=== PATIENT | female | born 1945 | race Caucasian/White ===

== ENCOUNTER 2016-12-07 18:10 | Inpatient (IN) | payer MEDICARE ==
[~2016-12-07] VITALS: Ht 147.3 cm; Wt 118.4 kg
[~2016-12-07 18:10] MED LIST: ALPR1TAB6 PO; ASCO500T25 PO; DOCU-27 PO; DOXY100C2 PO; FLUT1DIS3 IH; FURO20TA3 PO; GABA-586 PO; HYDR-963 PO; INSU100I11 SQ; INSU100V8 SQ; LANS30CA17 PO; LEVO75TA5 PO; LOPE2TAB27 PO; LOSA100T6 PO; MELA5TAB PO; METF500T4 PO; MIRA50TA PO; MUPI22OI2 TP; OXYB5TAB7 PO; OXYC10TA32 PO; OXYC5TAB PO; PROAIR HFA8.5 GM INH; PROM25TA10 PO; RIZA5TAB7 PO; TOPI200T6 PO; VIT1LOZE2 PO
[2016-12-07 20:30] VITALS: BP 148/82
[2016-12-07 23:00] VITALS: BP 164/69
[2016-12-07] MEDS ORDERED: ACETAMINOPHEN 650 MG SUPP.RECT. PR PRN (23:30)
[2016-12-07] MEDS ORDERED: DEXTROSE 50% 25 GM / 50ML DISP.SYRIN. IV PRN (23:30)
[2016-12-08] MEDS ORDERED: BISACODYL 10 MG SUPP.RECT PR PRN
[2016-12-08] MEDS ORDERED: INSULIN ASPART 300 UNITS/3 ML INSULN.PEN SQ SCH
[2016-12-08] MEDS ORDERED: ALBUTEROL SULFATE 2.5 MG/3 ML NEBU. NEB PRN
[2016-12-08] MEDS: IV DEXTROSE 5 %-0.45 % NACL 1,000 ML IV SCH ×2 (00:30→13:05)
[2016-12-08 03:00] VITALS: BP 161/73
[2016-12-08] MEDS: FENTANYL PF 100 MCG/2 ML VIAL. IV PRN ×3 (03:40→11:39)
[2016-12-08] MEDS: METRONIDAZOLE 500mg PREMIX 100 ML IV SCH ×4 (06:09→22:16)
[2016-12-08] MEDS: INSULIN ASPART 300 UNITS/3 ML INSULN.PEN SQ SCH ×4 (06:15→18:00)
[2016-12-08 07:00] VITALS: BP 164/60
[2016-12-08] MEDS: ONDANSETRON PF 4 MG/2 ML VIAL. IV PRN (08:02)
[2016-12-08] MEDS: IPRATRPIUM/ALBUTEROL 0.5/2.5MG 3 ML NEBU. NEB SCH ×4 (08:09→19:08)
[2016-12-08] MEDS ORDERED: FLU VACC QUAD 2016-17 (36MOS+)/PF 0.5 ML SYRINGE. VAX IM ONE (09:00)
[2016-12-08] MEDS ORDERED: INFLUENZA VAX SCREEN BY RX. MC ONE (09:00)
[2016-12-08] MEDS: HEPARIN PF for SUB-Q USE 5,000 UNIT/0.5 ML VIAL. SQ SCH ×2 (09:00→22:20)
[2016-12-08] MEDS: NYSTATIN TOPICAL POWDER 15GM BOTTLE. TP SCH ×2 (09:42→22:16)
[2016-12-08 10:45] LABS: BASO # 0.1 x10^3/uL (0.0-0.2); BASO % 0 % (0-3); EOS % 0 % (0-3); HEMATOCRIT 27.8 % (36.0-47.0); HEMOGLOBIN 8.8 g/dL (12.0-15.5); LYMPH # 2.4 x10^3/uL (1.0-4.8); LYMPH % 16 % (24-48); MEAN CORPUSCULAR HEMOGLOBIN 26 pg (25-35); MEAN CORPUSCULAR HGB CONC 32 g/dL (31-37); MEAN CORPUSCULAR VOLUME 82 fL (79-100); MONO % 6 % (0-9); NEUT % 78 % (31-73); PLATELET COUNT 521 x10^3/uL (140-400); RED CELL DISTRIBUTION WIDTH 17.9 % (11.5-14.5); WHITE BLOOD COUNT 15.7 x10^3/uL (4.0-11.0)
[2016-12-08 11:00] VITALS: BP 165/89
[2016-12-08 11:01] LABS: CALCIUM 8.4 mg/dL (8.5-10.1); CREATININE 1.2 mg/dL (0.6-1.0); GFR 44.2; POTASSIUM 4.3 mmol/L (3.5-5.1)
[2016-12-08 11:06] LABS: ALBUMIN 2.6 g/dL (3.4-5.0); ALBUMIN/GLOBULIN RATIO 0.7 (1.0-1.7); TOTAL BILIRUBIN 0.3 mg/dL (0.2-1.0); TOTAL PROTEIN 6.6 g/dL (6.4-8.2)
--- NOTE | 2016-12-08 13:42 | PDOC ---
Provider Note Provider Note dictated MITA ASHLEY MD Dec 08, 2016 13:42
[2016-12-08] MEDS ORDERED: LIDOCAINE 1% / SOD BICARB 8.4% 20 ML VIAL. IJ ONE ×2 (14:15→14:30)
[2016-12-08] MEDS ORDERED: IODIXANOL 320MG/ML 50ML VIAL. ONE (14:53)
--- NOTE | 2016-12-08 15:39 | PDOC ---
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 Left brachial and cephalic veins are occluded/absent. Left IJ tunnelled power line placement was successful. Complications No immediate COLLEEN MYLES MD Dec 08, 2016 15:39
[2016-12-08] MEDS ORDERED: HEPARIN PF 500 UNIT/5 ML DISP.SYRIN. IV ONE ×2 (15:42→16:00)
[2016-12-08] MEDS ORDERED: IODIXANOL 320 MG/ML 100 ML VIAL. IV ONE (15:45)
--- NOTE | 2016-12-08 16:04 | HP ---
ADMIT DATE: 12/07/2016 HISTORY OF PRESENT ILLNESS: The patient is a 71-year-old female patient, who was originally admitted to [facility] on 12/03/2016 with a complaint of recurrent bouts of cough and low grade fever. She was diagnosed with left lower lobe pneumonia and sepsis, as well as acute kidney injury, was started on IV antibiotics for healthcare-associated pneumonia. She was discharged only few days prior to that from [facility]. She was started on vancomycin and Levaquin as SHE IS ALLERGIC TO PENICILLIN, SULFA DRUGS, AND CEPHALOSPORINS. Her lab work initially showed that her white cell count was slightly elevated at 14,000 and has slightly increased, as of yesterday, it went up to 19,600. Her blood culture was negative. Urine culture showed growth of Klebsiella pneumoniae sensitive to Levaquin. Has been complaining of severe constipation, has not had any bowel movement despite treatment with MiraLax, milk of magnesia, Senokot, and Dulcolax suppositories and we tried yesterday the Movantik for opioid-induced constipation and she had only small bowel movement and she started complaining of recurrent bouts of nausea and vomiting and we did a KUB, which showed that the patient has multiple air fluid levels. The radiologist stated that the plain films of the abdomen are compatible with at least partial mechanical small-bowel obstruction. I did speak with Dr. Atwood and he recommended transferring her to [facility]. She was transferred yesterday evening. She was kept n.p.o., started on IV fluid, IV pain medication, and insulin sliding scale. The plan is to consult for her to be evaluated by surgical team. Given her morbid obesity and chronic hypoxic respiratory failure and probably obstructive sleep apnea, I would also consult the transformation coach and infectious disease specialist. PAST MEDICAL HISTORY: Significant for chronic lower extremity venous stasis ulcer with recurrent cellulitis, morbid obesity, obstructive sleep apnea, type 2 diabetes, impaired mobility. Unfortunately, she had a previous fractured left humerus and currently, she fractured her right humerus, which is in right shoulder immobilizer. She is also known to have moderate protein-calorie malnutrition, chronic pain syndrome, chronic narcotic overuse, anxiety, and recurrent falls. She is also known to have chronic obstructive pulmonary disease. SURGERIES: She had multiple abdominal surgeries before and she has a history of bowel obstruction that required NG tube, treated and resolved apparently without any surgery at [facility]. ALLERGIES: She is allergic to PENICILLIN, SULFA, ASPIRIN, CEPHALEXIN, DIAZEPAM, AND BENADRYL. MEDICATIONS: She was on following medications: She was on Colace 100 mg twice a day, polyethylene glycol 17 g twice a day, Movantik 25 mg daily. She is on levothyroxine 100 mcg once a day, bisacodyl 10 mg daily, magnesium hydroxide or milk of magnesia 30 mL p.o. daily, ondansetron 4 mg IV every 6 hours for nausea and vomiting. She was on Levemir insulin 50 units at bedtime and NovoLog insulin 13 units before meals. She was on methyl prednisolone 60 mg IV daily, furosemide 20 mg once a day. She was on vancomycin 1.5 grams IV daily and heparin 5000 units subcutaneously twice a day, levofloxacin 750 mg every 48 hours. She is also on insulin sliding scale, nystatin powder applied topically, losartan potassium 100 mg once a day, albuterol and Atrovent q.i.d., alprazolam 0.5 mg every 8 hours, topiramate 200 mg at bedtime. She is also on Protonix 40 mg p.o. b.i.d., oxycodone 15 mg twice a day, and melatonin 4.5 mg at bedtime. She is on sumatriptan 50 mg every 4 hours for migraine headache and oxycodone 5 mg every 6 hours, promethazine 25 mg every 4 hours for nausea and vomiting. FAMILY HISTORY: Unremarkable. SOCIAL HISTORY: She lives at home with her . She has never smoked. 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 REVIEW OF SYSTEMS: As per history of present illness. PHYSICAL EXAMINATION GENERAL: When I examined her, she was sitting propped up in her recliner in no apparent respiratory distress. She was somewhat pale, but no jaundice, cyanosis, or thyromegaly. No jugular venous distention. No limb edema. VITAL SIGNS: Her heart rate was 90, blood pressure was 140/50, temperature was 98, respiratory rate was 16, and oxygen saturation was 94% on 3 liters of oxygen by nasal cannula. HEAD, EYES, EARS, NOSE, THROAT: Showed normocephalic, atraumatic. NECK: Supple. HEART: Showed normal first and second heart sounds. No gallop, rub, or murmur. CHEST: Shows central trachea, reduced chest expansion, reduced air entry, vesicular sounds with crepitation, more on the left side, very few scattered rhonchi. ABDOMEN: Distended, soft, nontender. No guarding or rigidity. No organomegaly. Hernial orifices intact. Bowel sounds are sluggish. NEUROLOGIC: She was awake, alert, responding appropriately. Cranial nerves intact. She moves the left upper extremity without difficulty. Her right upper extremity is in right shoulder immobilizer. She is able to walk with assistance with a walker. LABORATORY DATA: Her most recent lab work was done yesterday at [facility] showed white cell count to be 19,600, hemoglobin 9.2, hematocrit 30, MCV 85, and platelet count of 557,000 with manual differential showed 83% polymorphs, 12% lymphocytes, and 4% monocytes. Her chemistry as of yesterday showed a serum sodium 132, potassium 4.3, chloride 95, bicarbonate 28, anion gap of 9, BUN 23, creatinine 1.1, estimated GFR was 49 mL per minute. Her glucose was 212 mg/dL, calcium was 9.1. Total bilirubin, AST, ALT, alkaline phosphatase were normal. Her total protein was 6.9, albumin 2.7. Her prothrombin time was 10.3, INR 1, aPTT was 25. As I stated, her blood cultures were negative; however, her urine culture showed growth of more than 100,000 colony forming units per mL of Klebsiella pneumoniae, susceptible to levofloxacin. She was kept n.p.o., started on IV fluid in the form of D5 half normal at 75 mL and continued her on levofloxacin, as well as started on Flagyl. Her vancomycin was discontinued as her blood cultures were negative. She was started on fentanyl 50 mcg IV every 3 hours for pain, Zofran for nausea and vomiting, and with a clear instruction to the nursing staff that if she continued to have intractable nausea and vomiting, she will require an NG tube to suction. ASSESSMENT AND PLAN: In summary, this is a 71-year-old female patient with fractured right humerus, treated conservatively with a sling. She was admitted recently with healthcare-associated pneumonia and was found also to have a urinary tract infection, treated with IV antibiotic. She has been on large amount of narcotics and she had started complaining of severe constipation that has not responded even to Movantik and yesterday, she started to have recurrent bouts of nausea, vomiting and a KUB showed that she has multiple air fluid levels consistent with at least partial mechanical small bowel obstruction. INCOMPLETE MICHELLE CRESPO MD DR: JARON/binta JOB#: [id number] / [id number]
--- NOTE | 2016-12-08 16:59 | RAD ---
Indication assess PICC line placement. A single view of the chest was obtained. No prior imaging of the chest is available. Heart size is at the upper limits of normal. There is no congestive heart failure. There is some minimal volume loss at the right lung base likely reflecting atelectasis. Significant pleural fluid is not seen. There is no pneumothorax. A left shoulder prosthesis is noted. Postoperative changes are noted associated with the right humerus. Left PICC line is noted. The tip is probably positioned at the SVC right atrial junction. IMPRESSION: Left PICC line. The tip is probably positioned at the SVC right atrial junction. Mild volume loss at the right lung base likely reflects atelectasis
[2016-12-08 18:20] LABS: OBC FLU VALID
[2016-12-08 20:26] VITALS: BP 130/49
[2016-12-08 22:13] VITALS: BP 159/63
[2016-12-09] MEDS: FENTANYL PF 100 MCG/2 ML VIAL. IV PRN ×3 (01:12→09:41)
[2016-12-09] MEDS: ONDANSETRON PF 4 MG/2 ML VIAL. IV PRN ×4 (02:04→21:21)
[2016-12-09 02:27] VITALS: BP 156/63
[2016-12-09] MEDS: IV DEXTROSE 5 %-0.45 % NACL 1,000 ML IV SCH (02:56)
[2016-12-09 06:05] LABS: BASO % 0 % (0-3); EOS % 1 % (0-3); HEMATOCRIT 26.9 % (36.0-47.0); HEMOGLOBIN 8.3 g/dL (12.0-15.5); LYMPH # 2.3 x10^3/uL (1.0-4.8); LYMPH % 14 % (24-48); MEAN CORPUSCULAR HEMOGLOBIN 26 pg (25-35); MEAN CORPUSCULAR HGB CONC 31 g/dL (31-37); MEAN CORPUSCULAR VOLUME 84 fL (79-100); MONO % 6 % (0-9); NEUT % 79 % (31-73); PLATELET COUNT 488 x10^3/uL (140-400); RED BLOOD COUNT 3.22 x10^6/uL (3.50-5.40); RED CELL DISTRIBUTION WIDTH 17.5 % (11.5-14.5); WHITE BLOOD COUNT 16.8 x10^3/uL (4.0-11.0)
[2016-12-09] MEDS: METRONIDAZOLE 500mg PREMIX 100 ML IV SCH ×3 (06:30→22:39)
[2016-12-09 06:47] LABS: ALBUMIN 2.5 g/dL (3.4-5.0); ALBUMIN/GLOBULIN RATIO 0.6 (1.0-1.7); CREATININE 1.1 mg/dL (0.6-1.0); GFR 48.8; TOTAL BILIRUBIN 0.4 mg/dL (0.2-1.0); TOTAL PROTEIN 6.5 g/dL (6.4-8.2)
[2016-12-09 07:00] VITALS: BP 161/67
[2016-12-09] MEDS: IPRATRPIUM/ALBUTEROL 0.5/2.5MG 3 ML NEBU. NEB SCH ×4 (07:12→20:23)
[2016-12-09] MEDS: HEPARIN PF for SUB-Q USE 5,000 UNIT/0.5 ML VIAL. SQ SCH ×2 (08:54→21:26)
[2016-12-09] MEDS: INSULIN ASPART 300 UNITS/3 ML INSULN.PEN SQ SCH ×4 (08:54→17:13)
--- NOTE | 2016-12-09 09:20 | CONS ---
DATE OF CONSULTATION: PULMONARY CONSULTATION ATTENDING PHYSICIAN: Willie Ludwig MD REASON FOR CONSULTATION: Cough. HISTORY OF PRESENT ILLNESS: The patient is a 71-year-old female who is morbidly obese. She is 4 feet 10 inches tall and has a BMI of 54.6. The patient was initially admitted to [facility] and was treated for urinary tract infection and pneumonia. She had a low-grade fever. The patient had lower extremity cellulitis as well. The patient had a fracture of the right humerus, which was about 4 weeks ago at . She has been brought back to [facility] because of small bowel obstruction. I have asked to see her for further evaluation. She has been having cough, which appears to be wet cough. She says she cannot bring up any phlegm. No fevers have been recorded. She has no history of tobacco use. She states she was diagnosed with mild CANDACE, but she did not need any treatment. The chest x-ray from [facility] from the was available and it shows some atelectasis, right base. I have been asked to see her for further evaluation. She is normally on home oxygen on a 24-hour basis at 3.5 L. PAST MEDICAL HISTORY: Significant for history of morbid obesity, history of obesity hypoventilation syndrome, history of chronic respiratory failure with 3.5 L on a 24-hour basis. She has history of diabetes as well. PAST SURGICAL HISTORY: No recent surgeries. ALLERGIES: Multiple, they were all reviewed including PENICILLIN, SULFA, ASPIRIN, KEFLEX, DIAZEPAM, DIPHENHYDRAMINE AND ERYTHROMYCIN. REVIEW OF SYSTEMS: A 10-point system obtained, pertinent positives discussed in my history of present illness, otherwise noncontributory. All systems that were negative were reviewed as well. SOCIAL HISTORY: Nonsmoker. CURRENT MEDICATIONS: Reviewed as listed in the MRAD including antibiotic Levaquin and DuoNebs. PHYSICAL EXAMINATION: GENERAL: She is awake, following commands. VITAL SIGNS: Blood pressure 164/80, afebrile, pulse ox 98% on 2 L. HEENT: Sclerae nonicteric. NECK: Supple. LUNGS: With few rhonchi anteriorly. CARDIOVASCULAR: Regular rate and rhythm. ABDOMEN: Soft, markedly obese. EXTREMITIES: With bilateral edema . LABORATORY DATA: Reviewed. White cell count 15.7, hemoglobin 8.8 and platelets are 521. BUN is 20, creatinine is 1.2. IMPRESSION: 1. Cough, which has been present for the last few days. I suspect combination of viral bronchitis and suspected aspiration of gastric contents. Her abdomen is markedly distended and she has small bowel obstruction. 2. Abnormal chest x-ray on the with right lower lobe atelectasis. We will repeat chest x-ray to rule out any worsening. 3. Suspected obesity hypoventilation syndrome. 4. Underlying chronic respiratory failure, on home oxygen at 3.5 L nasal cannula. 5. Rule out influenza. RECOMMENDATIONS: 1. Obtain nasal swab. 2. Continue with present bronchodilators. 3. Continue with empiric antibiotics. 4. Keep head of the bed elevated to minimize any acid aspiration. 5. Management of small bowel obstruction per PCP and GI. 6. Weight loss was strongly emphasized to the patient. 7. Incentive spirometry. 8. Repeat chest x-ray. 9. We will follow along with you. MITA ASHLEY MD DR: MEGAN/binta JOB#: [id number] / [id number] [place]ET[place]
[2016-12-09] MEDS: NYSTATIN TOPICAL POWDER 15GM BOTTLE. TP SCH ×2 (09:45→21:21)
--- NOTE | 2016-12-09 09:53 | PDOC ---
SURGICAL PROGRESS NOTE Subjective Pt sitting up in chair, lori clears, notes starting to pass large amount of stool , notes chronic nausea, no emesis, chronic SOA Vital Signs Vital Signs Date Time Temp Pulse Resp B/P Pulse Ox O2 Delivery O2 Flow Rate FiO2 12/09/16 08:00 Nasal Cannula 3.0 12/09/16 07:13 99 12/09/16 07:00 98.1 92 20 161/67 98.1 I&O Intake and Output 12/09/16 07:00 Intake Total 1280 ml Output Total 800 ml Balance 480 ml Intake Oral 1180 ml IV Total 100 ml Output Urine Total 800 ml # Voids 4 # Bowel Movements 1 General: Alert, Oriented X3, Cooperative, mild distress Abdomen: Soft, Other (morbidly obese, min TTP, reducible hernias) Labs Laboratory Tests Test 12/07/16 21:25 12/08/16 06:11 12/08/16 10:35 12/08/16 17:02 Glucose (Fingerstick) 156mg/dL (70-99) 234mg/dL (70-99) 212mg/dL (70-99) White Blood Count 15.7x10^3/uL (4.0-11.0) Red Blood Count 3.40x10^6/uL (3.50-5.40) Hemoglobin 8.8g/dL (12.0-15.5) Hematocrit 27.8% (36.0-47.0) Mean Corpuscular Volume 82fL (79-100) Mean Corpuscular Hemoglobin 26pg (25-35) Mean Corpuscular Hemoglobin Concent 32g/dL (31-37) Red Cell Distribution Width 17.9% (11.5-14.5) Platelet Count 521x10^3/uL (140-400) Neutrophils (%) (Auto) 78% (31-73) Lymphocytes (%) (Auto) 16% (24-48) Monocytes (%) (Auto) 6% (0-9) Eosinophils (%) (Auto) 0% (0-3) Basophils (%) (Auto) 0% (0-3) Neutrophils # (Auto) 12.3x10^3uL (1.8-7.7) Lymphocytes # (Auto) 2.4x10^3/uL (1.0-4.8) Monocytes # (Auto) 0.9x10^3/uL (0.0-1.1) Eosinophils # (Auto) 0.0x10^3/uL (0.0-0.7) Basophils # (Auto) 0.1x10^3/uL (0.0-0.2) Sodium Level 132mmol/L (136-145) Potassium Level 4.3mmol/L (3.5-5.1) Chloride Level 96mmol/L (98-107) Carbon Dioxide Level 29mmol/L (21-32) Anion Gap 7 (6-14) Blood Urea Nitrogen 20mg/dL (7-20) Creatinine 1.2mg/dL (0.6-1.0) Estimated GFR (Cockcroft-Gault) 44.2 BUN/Creatinine Ratio 17 (6-20) Glucose Level 250mg/dL (70-99) Calcium Level 8.4mg/dL (8.5-10.1) Total Bilirubin 0.3mg/dL (0.2-1.0) Aspartate Amino Transf (AST/SGOT) 14U/L (15-37) Alanine Aminotransferase (ALT/SGPT) 21U/L (14-59) Alkaline Phosphatase 87U/L (46-116) Total Protein 6.6g/dL (6.4-8.2) Albumin 2.6g/dL (3.4-5.0) Albumin/Globulin Ratio 0.7 (1.0-1.7) Test 12/08/16 17:30 12/08/16 21:10 12/09/16 05:45 Influenza Type A Antigen Negative (NEGATIVE) Influenza Type B Antigen Negative (NEGATIVE) Glucose (Fingerstick) 216mg/dL (70-99) White Blood Count 16.8x10^3/uL (4.0-11.0) Red Blood Count 3.22x10^6/uL (3.50-5.40) Hemoglobin 8.3g/dL (12.0-15.5) Hematocrit 26.9% (36.0-47.0) Mean Corpuscular Volume 84fL (79-100) Mean Corpuscular Hemoglobin 26pg (25-35) Mean Corpuscular Hemoglobin Concent 31g/dL (31-37) Red Cell Distribution Width 17.5% (11.5-14.5) Platelet Count 488x10^3/uL (140-400) Neutrophils (%) (Auto) 79% (31-73) Lymphocytes (%) (Auto) 14% (24-48) Monocytes (%) (Auto) 6% (0-9) Eosinophils (%) (Auto) 1% (0-3) Basophils (%) (Auto) 0% (0-3) Neutrophils # (Auto) 13.3x10^3uL (1.8-7.7) Lymphocytes # (Auto) 2.3x10^3/uL (1.0-4.8) Monocytes # (Auto) 1.1x10^3/uL (0.0-1.1) Eosinophils # (Auto) 0.1x10^3/uL (0.0-0.7) Basophils # (Auto) 0.0x10^3/uL (0.0-0.2) Sodium Level 132mmol/L (136-145) Potassium Level 4.0mmol/L (3.5-5.1) Chloride Level 98mmol/L (98-107) Carbon Dioxide Level 26mmol/L (21-32) Anion Gap 8 (6-14) Blood Urea Nitrogen 16mg/dL (7-20) Creatinine 1.1mg/dL (0.6-1.0) Estimated GFR (Cockcroft-Gault) 48.8 BUN/Creatinine Ratio 15 (6-20) Glucose Level 251mg/dL (70-99) Calcium Level 8.0mg/dL (8.5-10.1) Total Bilirubin 0.4mg/dL (0.2-1.0) Aspartate Amino Transf (AST/SGOT) 16U/L (15-37) Alanine Aminotransferase (ALT/SGPT) 22U/L (14-59) Alkaline Phosphatase 85U/L (46-116) Total Protein 6.5g/dL (6.4-8.2) Albumin 2.5g/dL (3.4-5.0) Albumin/Globulin Ratio 0.6 (1.0-1.7) Laboratory Tests Test 12/08/16 10:35 12/08/16 17:02 12/08/16 17:30 12/08/16 21:10 White Blood Count 15.7x10^3/uL (4.0-11.0) Red Blood Count 3.40x10^6/uL (3.50-5.40) Hemoglobin 8.8g/dL (12.0-15.5) Hematocrit 27.8% (36.0-47.0) Mean Corpuscular Volume 82fL (79-100) Mean Corpuscular Hemoglobin 26pg (25-35) Mean Corpuscular Hemoglobin Concent 32g/dL (31-37) Red Cell Distribution Width 17.9% (11.5-14.5) Platelet Count 521x10^3/uL (140-400) Neutrophils (%) (Auto) 78% (31-73) Lymphocytes (%) (Auto) 16% (24-48) Monocytes (%) (Auto) 6% (0-9) Eosinophils (%) (Auto) 0% (0-3) Basophils (%) (Auto) 0% (0-3) Neutrophils # (Auto) 12.3x10^3uL (1.8-7.7) Lymphocytes # (Auto) 2.4x10^3/uL (1.0-4.8) Monocytes # (Auto) 0.9x10^3/uL (0.0-1.1) Eosinophils # (Auto) 0.0x10^3/uL (0.0-0.7) Basophils # (Auto) 0.1x10^3/uL (0.0-0.2) Sodium Level 132mmol/L (136-145) Potassium Level 4.3mmol/L (3.5-5.1) Chloride Level 96mmol/L (98-107) Carbon Dioxide Level 29mmol/L (21-32) Anion Gap 7 (6-14) Blood Urea Nitrogen 20mg/dL (7-20) Creatinine 1.2mg/dL (0.6-1.0) Estimated GFR (Cockcroft-Gault) 44.2 BUN/Creatinine Ratio 17 (6-20) Glucose Level 250mg/dL (70-99) Calcium Level 8.4mg/dL (8.5-10.1) Total Bilirubin 0.3mg/dL (0.2-1.0) Aspartate Amino Transf (AST/SGOT) 14U/L (15-37) Alanine Aminotransferase (ALT/SGPT) 21U/L (14-59) Alkaline Phosphatase 87U/L (46-116) Total Protein 6.6g/dL (6.4-8.2) Albumin 2.6g/dL (3.4-5.0) Albumin/Globulin Ratio 0.7 (1.0-1.7) Glucose (Fingerstick) 212mg/dL (70-99) 216mg/dL (70-99) Influenza Type A Antigen Negative (NEGATIVE) Influenza Type B Antigen Negative (NEGATIVE) Test 12/09/16 05:45 White Blood Count 16.8x10^3/uL (4.0-11.0) Red Blood Count 3.22x10^6/uL (3.50-5.40) Hemoglobin 8.3g/dL (12.0-15.5) Hematocrit 26.9% (36.0-47.0) Mean Corpuscular Volume 84fL (79-100) Mean Corpuscular Hemoglobin 26pg (25-35) Mean Corpuscular Hemoglobin Concent 31g/dL (31-37) Red Cell Distribution Width 17.5% (11.5-14.5) Platelet Count 488x10^3/uL (140-400) Neutrophils (%) (Auto) 79% (31-73) Lymphocytes (%) (Auto) 14% (24-48) Monocytes (%) (Auto) 6% (0-9) Eosinophils (%) (Auto) 1% (0-3) Basophils (%) (Auto) 0% (0-3) Neutrophils # (Auto) 13.3x10^3uL (1.8-7.7) Lymphocytes # (Auto) 2.3x10^3/uL (1.0-4.8) Monocytes # (Auto) 1.1x10^3/uL (0.0-1.1) Eosinophils # (Auto) 0.1x10^3/uL (0.0-0.7) Basophils # (Auto) 0.0x10^3/uL (0.0-0.2) Sodium Level 132mmol/L (136-145) Potassium Level 4.0mmol/L (3.5-5.1) Chloride Level 98mmol/L (98-107) Carbon Dioxide Level 26mmol/L (21-32) Anion Gap 8 (6-14) Blood Urea Nitrogen 16mg/dL (7-20) Creatinine 1.1mg/dL (0.6-1.0) Estimated GFR (Cockcroft-Gault) 48.8 BUN/Creatinine Ratio 15 (6-20) Glucose Level 251mg/dL (70-99) Calcium Level 8.0mg/dL (8.5-10.1) Total Bilirubin 0.4mg/dL (0.2-1.0) Aspartate Amino Transf (AST/SGOT) 16U/L (15-37) Alanine Aminotransferase (ALT/SGPT) 22U/L (14-59) Alkaline Phosphatase 85U/L (46-116) Total Protein 6.5g/dL (6.4-8.2) Albumin 2.5g/dL (3.4-5.0) Albumin/Globulin Ratio 0.6 (1.0-1.7) Assessment/Plan SBO, multipe med problems, appears improved cont supportive care ADAT slowly pt poor surgical candidate, and adamant about not having surgery Problems: ERIBERTO ARMSTRONG MD Dec 09, 2016 09:53
--- NOTE | 2016-12-09 10:03 | PDOC ---
Infectious Disease Note ROS ROS GEN: Denies fevers, chills, sweats HEENT: Denies blurred vision, sore throat CV: Denies chest pain RESP: Denies shortness of air, cough GI: Denies n/v/d NEURO: Denies confusion, dizziness MSK: Denies weakness, joint pain/swelling Vital Sign Vital Signs Vital Signs Date Time Temp Pulse Resp B/P Pulse Ox O2 Delivery O2 Flow Rate FiO2 12/09/16 08:00 Nasal Cannula 3.0 12/09/16 07:13 99 12/09/16 07:00 98.1 92 20 161/67 98.1 Physical Exam PHYSICAL EXAM GENERAL: NAD, Alert HEENT: PERRL, OC/OP NECK: Supple, no JVD, no LN LUNGS: Clear HEART: S1S2, no gallop, no murmur ABD: Soft, NT, no organomegaly, no rebound EXT: No edema, no cyanosis SOFTWARE PUBLISHER: Alert, oriented x 3, no focal neurologic deficit SKIN: No rash IV: ok Labs Lab Laboratory Tests Test 12/08/16 10:35 12/08/16 17:02 12/08/16 17:30 12/08/16 21:10 White Blood Count 15.7x10^3/uL (4.0-11.0) Red Blood Count 3.40x10^6/uL (3.50-5.40) Hemoglobin 8.8g/dL (12.0-15.5) Hematocrit 27.8% (36.0-47.0) Mean Corpuscular Volume 82fL (79-100) Mean Corpuscular Hemoglobin 26pg (25-35) Mean Corpuscular Hemoglobin Concent 32g/dL (31-37) Red Cell Distribution Width 17.9% (11.5-14.5) Platelet Count 521x10^3/uL (140-400) Neutrophils (%) (Auto) 78% (31-73) Lymphocytes (%) (Auto) 16% (24-48) Monocytes (%) (Auto) 6% (0-9) Eosinophils (%) (Auto) 0% (0-3) Basophils (%) (Auto) 0% (0-3) Neutrophils # (Auto) 12.3x10^3uL (1.8-7.7) Lymphocytes # (Auto) 2.4x10^3/uL (1.0-4.8) Monocytes # (Auto) 0.9x10^3/uL (0.0-1.1) Eosinophils # (Auto) 0.0x10^3/uL (0.0-0.7) Basophils # (Auto) 0.1x10^3/uL (0.0-0.2) Sodium Level 132mmol/L (136-145) Potassium Level 4.3mmol/L (3.5-5.1) Chloride Level 96mmol/L (98-107) Carbon Dioxide Level 29mmol/L (21-32) Anion Gap 7 (6-14) Blood Urea Nitrogen 20mg/dL (7-20) Creatinine 1.2mg/dL (0.6-1.0) Estimated GFR (Cockcroft-Gault) 44.2 BUN/Creatinine Ratio 17 (6-20) Glucose Level 250mg/dL (70-99) Calcium Level 8.4mg/dL (8.5-10.1) Total Bilirubin 0.3mg/dL (0.2-1.0) Aspartate Amino Transf (AST/SGOT) 14U/L (15-37) Alanine Aminotransferase (ALT/SGPT) 21U/L (14-59) Alkaline Phosphatase 87U/L (46-116) Total Protein 6.6g/dL (6.4-8.2) Albumin 2.6g/dL (3.4-5.0) Albumin/Globulin Ratio 0.7 (1.0-1.7) Glucose (Fingerstick) 212mg/dL (70-99) 216mg/dL (70-99) Influenza Type A Antigen Negative (NEGATIVE) Influenza Type B Antigen Negative (NEGATIVE) Test 12/09/16 05:45 White Blood Count 16.8x10^3/uL (4.0-11.0) Red Blood Count 3.22x10^6/uL (3.50-5.40) Hemoglobin 8.3g/dL (12.0-15.5) Hematocrit 26.9% (36.0-47.0) Mean Corpuscular Volume 84fL (79-100) Mean Corpuscular Hemoglobin 26pg (25-35) Mean Corpuscular Hemoglobin Concent 31g/dL (31-37) Red Cell Distribution Width 17.5% (11.5-14.5) Platelet Count 488x10^3/uL (140-400) Neutrophils (%) (Auto) 79% (31-73) Lymphocytes (%) (Auto) 14% (24-48) Monocytes (%) (Auto) 6% (0-9) Eosinophils (%) (Auto) 1% (0-3) Basophils (%) (Auto) 0% (0-3) Neutrophils # (Auto) 13.3x10^3uL (1.8-7.7) Lymphocytes # (Auto) 2.3x10^3/uL (1.0-4.8) Monocytes # (Auto) 1.1x10^3/uL (0.0-1.1) Eosinophils # (Auto) 0.1x10^3/uL (0.0-0.7) Basophils # (Auto) 0.0x10^3/uL (0.0-0.2) Sodium Level 132mmol/L (136-145) Potassium Level 4.0mmol/L (3.5-5.1) Chloride Level 98mmol/L (98-107) Carbon Dioxide Level 26mmol/L (21-32) Anion Gap 8 (6-14) Blood Urea Nitrogen 16mg/dL (7-20) Creatinine 1.1mg/dL (0.6-1.0) Estimated GFR (Cockcroft-Gault) 48.8 BUN/Creatinine Ratio 15 (6-20) Glucose Level 251mg/dL (70-99) Calcium Level 8.0mg/dL (8.5-10.1) Total Bilirubin 0.4mg/dL (0.2-1.0) Aspartate Amino Transf (AST/SGOT) 16U/L (15-37) Alanine Aminotransferase (ALT/SGPT) 22U/L (14-59) Alkaline Phosphatase 85U/L (46-116) Total Protein 6.5g/dL (6.4-8.2) Albumin 2.5g/dL (3.4-5.0) Albumin/Globulin Ratio 0.6 (1.0-1.7) Objective Assessment Partial SBO Multiple abx allergies - Amox/Cephalexin/sulfa rash - tolerated Biaxin Leukocytosis - ? reactive given difficulty with central line placement Sinus congestion Aspiration UTI klebsiella - res to Amp/Pip 12/02. Blood cult 12/02 - neg RUE fracture about 7 weeks ago DM Morbid obesity Plan Plan of Care Cont levoflox/Flagyl Dose Tigecycline to see if helps with drainage/cough/Leukocytosis F/u labs/cults and response Reviewed [facility] records # [id number] CARMINA HERNANDEZ MD Dec 09, 2016 10:03
[2016-12-09] MEDS ORDERED: TIGECYCLINE 100 MG in IV NORMAL SALINE 100ML 100 ML IV ONE (10:30)
[2016-12-09 11:00] VITALS: BP 155/46
[2016-12-09] MEDS: HYDROMORPHONE 2 MG/ML VIAL. IV PRN ×4 (12:00→22:39)
--- NOTE | 2016-12-09 12:09 | RAD ---
Procedure: Left upper extremity venogram, attempted left upper extremity PICC line, left tunneled power injector central venous catheter with fluoroscopy and ultrasound guidance Clinical Indication: 71-year-old requiring long-term venous access. Sedation: Local anesthesia only Antibiotics: Antibiotic was administered intravenously within 1 hour of the procedure start time. Exposure: Kerma-Area Product: 14 Gycm2 OR Fluoro Time: Images: Contrast: 20 cc of Visipaque 320 contrast media Sterility: All elements of maximal sterile barrier technique including the use of a cap, mask, sterile gown, sterile gloves, large sterile sheet, appropriate hand hygiene, and 2% chlorhexidine for cutaneous antisepsis (or acceptable alternative antiseptic per current guidelines) were followed for this procedure. Consent: The procedure was explained in its entirety to the patient or the patients designated traffic representative by a member of the treatment team, including a discussion of the risks, benefits and commonly accepted alternatives to the procedure, as well as the expected consequences of no therapy whatsoever. Discussion of the risks included, but was not limited to, those that are most frequent and those that are rare but possibly severe or life-threatening, as well as the possibility of unforeseen complications. Technique and Findings: Following informed consent, the patient was prepped and draped in usual sterile fashion. Ultrasound interrogation of the left arm revealed a patent basilic vein, with occluded cephalic and brachial veins. 1% lidocaine was used to achieve local anesthesia. Under ultrasound guidance, a 21-gauge micropuncture needle was used to gain access to the left basilic vein. A Hardcopy ultrasound image was recorded. There is difficulty advancing the wire. Contrast venography was performed demonstrating a long segment stricture of the high basilic vein, with patency of the axillary vein distally. Efforts to advance wire were unsuccessful in all instances. The wire needle was then removed and hemostasis was achieved with manual compression. Using the stagnant contrast column in the high basilic vein at the axillary venous junction as a guide, a 21-gauge micropuncture was used to gain access to the axillary vein under fluoroscopic guidance. This resulted in rapid spasm of the vein, precluding passage of the wire. The needle was removed and hemostasis was achieved with manual compression. The left chest was then prepped and draped in usual sterile fashion. Ultrasound interrogation of the left neck revealed patency and compressibility of left internal jugular vein. A hardcopy ultrasound image was recorded as a 21-gauge micropuncture was used to gain access to this vessel. The needle was exchanged over wire for a peel-away sheath. The skin over the left anterior chest wall was then copiously anesthetized with 1% lidocaine plus epinephrine, and a small dermatotomy was made. A power injectable central line was then tunneled subcutaneously towards the neck dermatotomy and deployed through the peel-away sheath under fluoroscopic guidance such that the distal tip resided in the proximal right atrium. This catheter was accessed and found to flush and aspirate with ease. The catheter was then sutured to the skin. Dermabond was used to close the neck dermatotomy. Complications: No immediate Impression: 1. 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 2. Successful placement of a left chest tunneled power injectable central venous catheter as described
--- NOTE | 2016-12-09 12:27 | PDOC ---
PULMONARY PROGRESS NOTES Subjective feels better having BM Vitals Vital Signs Date Time Temp Pulse Resp B/P Pulse Ox O2 Delivery O2 Flow Rate FiO2 12/09/16 11:05 Nasal Cannula 3.0 12/09/16 07:13 99 12/09/16 07:00 98.1 92 20 161/67 98.1 General: Alert, No acute distress Lungs: Other (decrease bs) Cardiovascular: S1, S2 Abdomen: Soft, Other (markedly obese) Neuro Exam: Alert Extremities: Other Labs Laboratory Tests Test 12/07/16 21:25 12/08/16 06:11 12/08/16 10:35 12/08/16 17:02 Glucose (Fingerstick) 156mg/dL (70-99) 234mg/dL (70-99) 212mg/dL (70-99) White Blood Count 15.7x10^3/uL (4.0-11.0) Red Blood Count 3.40x10^6/uL (3.50-5.40) Hemoglobin 8.8g/dL (12.0-15.5) Hematocrit 27.8% (36.0-47.0) Mean Corpuscular Volume 82fL (79-100) Mean Corpuscular Hemoglobin 26pg (25-35) Mean Corpuscular Hemoglobin Concent 32g/dL (31-37) Red Cell Distribution Width 17.9% (11.5-14.5) Platelet Count 521x10^3/uL (140-400) Neutrophils (%) (Auto) 78% (31-73) Lymphocytes (%) (Auto) 16% (24-48) Monocytes (%) (Auto) 6% (0-9) Eosinophils (%) (Auto) 0% (0-3) Basophils (%) (Auto) 0% (0-3) Neutrophils # (Auto) 12.3x10^3uL (1.8-7.7) Lymphocytes # (Auto) 2.4x10^3/uL (1.0-4.8) Monocytes # (Auto) 0.9x10^3/uL (0.0-1.1) Eosinophils # (Auto) 0.0x10^3/uL (0.0-0.7) Basophils # (Auto) 0.1x10^3/uL (0.0-0.2) Sodium Level 132mmol/L (136-145) Potassium Level 4.3mmol/L (3.5-5.1) Chloride Level 96mmol/L (98-107) Carbon Dioxide Level 29mmol/L (21-32) Anion Gap 7 (6-14) Blood Urea Nitrogen 20mg/dL (7-20) Creatinine 1.2mg/dL (0.6-1.0) Estimated GFR (Cockcroft-Gault) 44.2 BUN/Creatinine Ratio 17 (6-20) Glucose Level 250mg/dL (70-99) Calcium Level 8.4mg/dL (8.5-10.1) Total Bilirubin 0.3mg/dL (0.2-1.0) Aspartate Amino Transf (AST/SGOT) 14U/L (15-37) Alanine Aminotransferase (ALT/SGPT) 21U/L (14-59) Alkaline Phosphatase 87U/L (46-116) Total Protein 6.6g/dL (6.4-8.2) Albumin 2.6g/dL (3.4-5.0) Albumin/Globulin Ratio 0.7 (1.0-1.7) Test 12/08/16 17:30 12/08/16 21:10 12/09/16 05:45 Influenza Type A Antigen Negative (NEGATIVE) Influenza Type B Antigen Negative (NEGATIVE) Glucose (Fingerstick) 216mg/dL (70-99) White Blood Count 16.8x10^3/uL (4.0-11.0) Red Blood Count 3.22x10^6/uL (3.50-5.40) Hemoglobin 8.3g/dL (12.0-15.5) Hematocrit 26.9% (36.0-47.0) Mean Corpuscular Volume 84fL (79-100) Mean Corpuscular Hemoglobin 26pg (25-35) Mean Corpuscular Hemoglobin Concent 31g/dL (31-37) Red Cell Distribution Width 17.5% (11.5-14.5) Platelet Count 488x10^3/uL (140-400) Neutrophils (%) (Auto) 79% (31-73) Lymphocytes (%) (Auto) 14% (24-48) Monocytes (%) (Auto) 6% (0-9) Eosinophils (%) (Auto) 1% (0-3) Basophils (%) (Auto) 0% (0-3) Neutrophils # (Auto) 13.3x10^3uL (1.8-7.7) Lymphocytes # (Auto) 2.3x10^3/uL (1.0-4.8) Monocytes # (Auto) 1.1x10^3/uL (0.0-1.1) Eosinophils # (Auto) 0.1x10^3/uL (0.0-0.7) Basophils # (Auto) 0.0x10^3/uL (0.0-0.2) Sodium Level 132mmol/L (136-145) Potassium Level 4.0mmol/L (3.5-5.1) Chloride Level 98mmol/L (98-107) Carbon Dioxide Level 26mmol/L (21-32) Anion Gap 8 (6-14) Blood Urea Nitrogen 16mg/dL (7-20) Creatinine 1.1mg/dL (0.6-1.0) Estimated GFR (Cockcroft-Gault) 48.8 BUN/Creatinine Ratio 15 (6-20) Glucose Level 251mg/dL (70-99) Calcium Level 8.0mg/dL (8.5-10.1) Total Bilirubin 0.4mg/dL (0.2-1.0) Aspartate Amino Transf (AST/SGOT) 16U/L (15-37) Alanine Aminotransferase (ALT/SGPT) 22U/L (14-59) Alkaline Phosphatase 85U/L (46-116) Total Protein 6.5g/dL (6.4-8.2) Albumin 2.5g/dL (3.4-5.0) Albumin/Globulin Ratio 0.6 (1.0-1.7) Laboratory Tests Test 12/08/16 17:02 12/08/16 17:30 12/08/16 21:10 12/09/16 05:45 Glucose (Fingerstick) 212mg/dL (70-99) 216mg/dL (70-99) Influenza Type A Antigen Negative (NEGATIVE) Influenza Type B Antigen Negative (NEGATIVE) White Blood Count 16.8x10^3/uL (4.0-11.0) Red Blood Count 3.22x10^6/uL (3.50-5.40) Hemoglobin 8.3g/dL (12.0-15.5) Hematocrit 26.9% (36.0-47.0) Mean Corpuscular Volume 84fL (79-100) Mean Corpuscular Hemoglobin 26pg (25-35) Mean Corpuscular Hemoglobin Concent 31g/dL (31-37) Red Cell Distribution Width 17.5% (11.5-14.5) Platelet Count 488x10^3/uL (140-400) Neutrophils (%) (Auto) 79% (31-73) Lymphocytes (%) (Auto) 14% (24-48) Monocytes (%) (Auto) 6% (0-9) Eosinophils (%) (Auto) 1% (0-3) Basophils (%) (Auto) 0% (0-3) Neutrophils # (Auto) 13.3x10^3uL (1.8-7.7) Lymphocytes # (Auto) 2.3x10^3/uL (1.0-4.8) Monocytes # (Auto) 1.1x10^3/uL (0.0-1.1) Eosinophils # (Auto) 0.1x10^3/uL (0.0-0.7) Basophils # (Auto) 0.0x10^3/uL (0.0-0.2) Sodium Level 132mmol/L (136-145) Potassium Level 4.0mmol/L (3.5-5.1) Chloride Level 98mmol/L (98-107) Carbon Dioxide Level 26mmol/L (21-32) Anion Gap 8 (6-14) Blood Urea Nitrogen 16mg/dL (7-20) Creatinine 1.1mg/dL (0.6-1.0) Estimated GFR (Cockcroft-Gault) 48.8 BUN/Creatinine Ratio 15 (6-20) Glucose Level 251mg/dL (70-99) Calcium Level 8.0mg/dL (8.5-10.1) Total Bilirubin 0.4mg/dL (0.2-1.0) Aspartate Amino Transf (AST/SGOT) 16U/L (15-37) Alanine Aminotransferase (ALT/SGPT) 22U/L (14-59) Alkaline Phosphatase 85U/L (46-116) Total Protein 6.5g/dL (6.4-8.2) Albumin 2.5g/dL (3.4-5.0) Albumin/Globulin Ratio 0.6 (1.0-1.7) Medications Active Scripts Medications Dose Route/Sig Days Date Category Mupirocin Ointment (Mupirocin) 22 Gm Oint...g. 1 Faheem TP TID 09/17/16 Reported Doxycycline Hyclate 100 Mg Capsule 100 Mg PO BID 09/17/16 Reported Oxybutynin Chloride 5 Mg Tablet 5 Mg PO HS 06/22/16 Reported Myrbetriq (Mirabegron) 50 Mg Tab.er.24h 50 Mg PO HS 06/22/16 Reported Melatonin 5 Mg Tablet 5 Mg PO HS 06/22/16 Reported Advair 250-50 Diskus (Fluticasone/Salmeterol) 1 Each Disk.w.dev 1 Inh IH BID 06/22/16 Reported Proair Hfa Inhaler (Albuterol Sulfate) 8.5 Gm Hfa.aer.ad 1 Puff INH PRN Q6HRS PRN 06/22/16 Reported Vitamin C (Ascorbic Acid) 500 Mg Tablet.er 500 Mg PO DAILY 06/22/16 Reported Zinc Lozenges (Vit A Acet/Vit C/Znox/Propolis) 1 Each Lozenge 1 Each PO DAILY 06/22/16 Reported Oxycodone Hcl 5 Mg Tablet 5 Mg PO Q4HRS PRN 06/22/16 Reported Humalog (Insulin Lispro) 100 Unit/1 Ml Insuln.pen 10 Unit SQ TIDAC 04/20/15 Reported Lantus (Insulin Glargine,Hum.rec.anlog) 100 Unit/1 Ml Vial 38 Unit SQ HS 04/20/15 Reported Alprazolam 1 Mg Tablet 0.5 Tab PO TID PRN 04/20/15 Reported Metformin Hcl 500 Mg Tablet 1 Tab PO BID 04/20/15 Reported Colace (Docusate Sodium) 100 Mg Capsule 1 Cap PO BID 04/20/15 Reported Rizatriptan (Rizatriptan Benzoate) 5 Mg Tablet 5 Mg PO DAILY PRN 04/20/15 Reported Topiramate 200 Mg Tablet 200 Mg PO HS PRN 04/20/15 Reported Promethazine Hcl 25 Mg Tablet 1 Tab PO PRN Q4HRS PRN 04/20/15 Reported Losartan Potassium 100 Mg Tablet 1 Tab PO DAILY 04/20/15 Reported Gabapentin 300 Mg Capsule 1 Cap PO BID 04/20/15 Reported Levothyroxine Sodium 75 Mcg Tablet 1 Tab PO DAILY 04/20/15 Reported [place] 10-325 Tablet (Acetaminophen/Hydrocodone Bitart) 1 Each Tablet 1-2 Tab PO Q4-6HRS 04/20/15 Reported Impression . 1. Cough, which has been present for the last few days. I suspect combination of viral bronchitis and suspected aspiration of gastric contents. Her abdomen is markedly distended and she has small bowel obstruction. 2. Abnormal chest x-ray on the with right lower lobe atelectasis. 3. Suspected obesity hypoventilation syndrome. 4. Underlying chronic respiratory failure, on home oxygen at 3.5 L nasal cannula. 5. Rule out influenza. Plan . 1. Influenza Neg 2. Continue with present bronchodilators. 3. Continue with empiric antibiotics. 4. Keep head of the bed elevated to minimize any acid aspiration. 5. Management of small bowel obstruction per PCP and GI. 6. Weight loss was strongly emphasized to the patient. 7. Incentive spirometry. 8. Repeat chest x-ray with RLL atelectasis 9. We will follow along with you. MITA ASHLEY MD Dec 09, 2016 12:27
[2016-12-09] MEDS: GUAIFENESIN DM 200MG/20MG 10 ML SYRUP. PO PRN ×2 (13:29→19:29)
[2016-12-09 14:06] VITALS: BP 136/60
[2016-12-09] MEDS ORDERED: DEXTROSE 50% 25 GM / 50ML DISP.SYRIN. IV PRN (16:30)
--- NOTE | 2016-12-09 18:51 | CONS ---
DATE OF CONSULTATION: 12/08/2016 REFERRING PHYSICIANS: Dr. Willie Ludwig, Dr. Marvel Saeed, Dr. Kamaljit Valencia, Dr. Ayana Metcalf and Dr. Angie Hooper. Thank you for the consult. CHIEF COMPLAINT: Abdominal pain and distention. DIAGNOSIS: Small-bowel obstruction versus ileus, pneumonia and acute kidney injury. HISTORY OF PRESENT ILLNESS: This is a pleasant 71-year-old female who was admitted to [facility] on 12/03/2016 with concerns for pneumonia and sepsis as well as acute kidney injury. She has been treated with antibiotics, but also developed severe constipation, has not had bowel function despite extensive bowel regimen. KUB demonstrated multiple distended bowel loops. Dr. Ludwig was kind enough to call me yesterday from [facility] and discussed patient and he was kind enough to transfer her down to [place] given her multiple medical comorbidities. She is seen in her hospital room. She appears to be reasonably comfortable at the moment. She has some difficulty moving without extensive assisting given her extensive morbid obesity. ALLERGIES: She has an allergy to PENICILLIN, SULFA, ASPIRIN, KEFLEX, DIAZEPAM, DIPHENHYDRAMINE, ERYTHROMYCIN. PAST MEDICAL HISTORY: Extensive morbid obesity, her BMI is 54.6. Lower extremity venous stasis ulcers, recurrent cellulitis, obstructive sleep apnea, diabetes, impaired mobility. She has recently fractured her right humerus and is in a shoulder immobilizer, chronic pain; anxiety and recurrent falls and COPD. PAST SURGICAL HISTORY: She has had previous gastric bypass many years ago, hysterectomy, previous bowel obstruction requiring NG tube placement. I reviewed her previous CT scan from several months ago at [facility] which had demonstrated multiple hernias, concern for small-bowel obstruction secondary to this. SOCIAL HISTORY: No tobacco, no significant alcohol use. FAMILY HISTORY: Noncontributory. MEDICATIONS: Reviewed. She is on extensive insulin and multiple medications. PHYSICAL EXAMINATION: GENERAL: Well-developed, morbidly obese female lying in bed. She had just been working with physical therapy. She is afebrile. VITAL SIGNS: Within normal limits. HEENT: Normocephalic, anicteric sclerae. Oropharynx clear. NECK: Supple. LUNGS: Bilateral chest excursion. ABDOMEN: Soft, severely obese. Multiple hernias which are reducible. EXTREMITIES: On the right extremity, she has a right arm shoulder immobilizer in place. Lower extremity, chronic edema. LABORATORY DATA: White blood cell count 15.7, hemoglobin is 8.8, glucose is greater than 200, creatinine 1.2, BUN . was negative. A chest x-ray demonstrated left PICC line, mild volume loss in the right lung base. Reviewed the KUB from [facility] which was concerning for small bowel distention. IMPRESSION AND RECOMMENDATIONS: A 71-year-old female with suspected small-bowel obstruction in multiple areas along with morbid obesity. I agree with supportive care at this time and I would certainly consider an NG tube placement if she develops extensive nausea and vomiting. She reports that she is not interested in surgical intervention if at all possible, which I think is very reasonable. Given her extensive obesity, I think surgical intervention would be very difficult and possible life threatening; however, I will follow along for possible intervention. Thank you for allowing participation in the care of this very pleasant patient. ERIBERTO ARMSTRONG MD DR: ALEJANDRINA/nts JOB#: [id number] / [id number] KAMALJIT Prather MD, CATHERINE DO KHAN, MARVEL LUDWIG, WILLIE METCALF, AYANA MEDINA
[2016-12-09 19:00] VITALS: BP 148/68
[2016-12-09] MEDS: TIGECYCLINE 50 MG in IV NORMAL SALINE 50ML 50 ML IV SCH (21:20)
[2016-12-09 23:00] VITALS: BP 145/65
--- NOTE | 2016-12-09 23:07 | CONS ---
DATE OF CONSULTATION: 12/09/2016 ROOM: 550. REQUESTING PHYSICIAN: Dr. Ludwig. REASON FOR CONSULTATION: Pneumonia, UTI. HISTORY OF PRESENT ILLNESS: The patient is a pleasant 71-year-old female with a history of diabetes, morbid obesity who states that she was at approximately seven weeks ago and had a lot of weeping from her legs and was weak and was standing with a gait belt but then her legs gave out, she fell and subsequently fractured her right upper extremity. She had been into rehab facility at [place] but then apparently was then discharged home. However, she began to feel ill and was brought to [facility] after developing a temperature of 99.5 on 12/02/2016. On arrival, she was found to have a white blood cell count elevated at 24.7. Cultures were obtained. Blood cultures remain negative; however, urine culture grew Klebsiella that was resistant to piperacillin and ampicillin. Additionally, she underwent plain films of the abdomen which showed at least partial mechanical small-bowel obstruction. Chest x-ray was concerning for potential hospital-acquired pneumonia. She was placed on Flagyl and levofloxacin. Additionally, she was treated with MiraLax, milk of mag, Senokot, Dulcolax suppositories and even tried Movantik, but only had a small bowel movement and she continued to complain of nausea, vomiting with KUB not showing much progress. She was therefore transferred to [facility]. This morning, she is seen upright in a chair, feels like she has to have a bowel movement. Denies any current fevers or chills or sweats. She has no headaches, no sore throat or cough. Denies any rashes. PAST MEDICAL HISTORY: Positive for chronic lower extremity venous stasis with history of previous cellulitis, morbid obesity, obstructive sleep apnea, type 2 diabetes, the above-mentioned fracture of her right humerus, chronic pain syndrome, anxiety, recurrent falls, COPD, history of the Klebsiella urinary tract infection and small-bowel obstruction. PAST SURGICAL HISTORY: Positive for multiple abdominal surgeries. REVIEW OF SYSTEMS: She complained of ongoing sinus drainage and cough. ALLERGIES: LISTED PENICILLIN, CEPHALEXIN, AND SULFA, ALL OF WHICH CAUSE HIVES, BUT SHE CANNOT REMEMBER LAST TIME SHE TOOK AMPICILLIN, AMOXICILLIN OR CEPHALEXIN. ERYTHROMYCIN LISTED, BUT SHE HAS TOLERATED BIAXIN, ASPIRIN AND BENADRYL ARE ALSO LISTED. SOCIAL HISTORY: She is a nonsmoker. She is . FAMILY HISTORY: Noncontributory. CURRENT MEDICATIONS: Include levofloxacin, metronidazole, heparin, albuterol, Atrovent. PHYSICAL EXAMINATION: VITAL SIGNS: She is afebrile, temperature 98.1, pulse 92, respirations 20, blood pressure 161/67 satting 99% on 3 liters nasal cannula. CONSTITUTIONAL: She is cooperative. She is in no acute distress. She is sitting upright in a chair. HEENT: Pupils are equal and reactive. Oral cavity, pharynx is clear. She is on nasal cannula oxygen. NECK: Supple with good range of motion. No obvious JVD. LUNGS: Have some mild rhonchi. HEART: Distant S1, S2. ABDOMEN: Obese, soft. Decreased bowel sounds. EXTREMITIES: Without clubbing, cyanosis and approximately 1+ bilateral pitting edema with some chronic venous stasis changes. NEUROLOGIC: She is alert and moves all extremities except for the right shoulder is in the immobilizer. Affect is appropriate. She has a left chest line without signs of any complications. LABORATORY DATA: White count 16.8, hemoglobin 8.3, platelets of 488, neutrophils 79, lymphs 14, creatinine 1.2, glucose is elevated at 251. Influenza screen was negative. Chest x-ray from 12/08/2016 mild volume loss. IMPRESSION: 1. Partial small-bowel obstruction. 2. MULTIPLE ANTIBIOTIC ALLERGIES LISTED ABOVE, BUT SHE HAS TOLERATED BIAXIN, AMOXICILLIN, CEPHALEXIN, AND SULFA, CAUSED A RASH AND UPSET STOMACH. 3. Leukocytosis with some mild increase. Yesterday, she did have difficulty with a line placement, eventually went into her left chest area, but per Dr. Jefferson's note her left brachial and cephalic veins were occluded or absent. 4. Sinus congestion. 5. Aspiration. 6. Recent UTI as mentioned above. 7. Right upper extremity fracture. 8. Diabetes. 9. Morbid obesity. RECOMMENDATIONS: For now, continue levofloxacin and Flagyl, but we will also try tigecycline given her leukocytosis, ongoing sinus drainage cough. Follow up on labs, cultures in her response. I did review [facility]'s records. Dr. Ludwig, thank you for asking me to participate in the patient's care. If you have any questions, please do not hesitate to contact me. CARMINA HERNANDEZ MD DR: Kay JOB#: [id number] / [id number]
--- NOTE | 2016-12-09 23:48 | PN ---
DATE: 12/09/2016 SUBJECTIVE: The patient is resting, slightly propped up in her recliner, sleeping comfortably, in no apparent respiratory distress. On questioning her, she stated that she had had multiple bowel movements. She is passing flatus. She was seen by Dr. Atwood and she is now on a clear liquid diet. Dr. Vela recommended to continue her current antibiotic. She has had her PICC line placed successfully by the interventional radiologist. PHYSICAL EXAMINATION: GENERAL: When I examined her this morning, she looked well and was clearly in no apparent respiratory distress. Pale. No jaundice, cyanosis, or thyromegaly. No jugular venous distension. No limb edema. VITAL SIGNS: Her heart rate was 92, blood pressure was 161/67, temperature was 98.1, respiratory rate was 20, and oxygen saturation was 99% on 3 liters of oxygen. HEAD, EYES, EARS, NOSE, AND THROAT: Showed normocephalic, atraumatic. NECK: Supple. HEART: Showed normal first and second heart sounds, with no gallop, rub or murmur. CHEST: Chest wall is clear to auscultation. No crepitation or rhonchi. ABDOMEN: Distended, soft, nontender. No guarding or rigidity. No organomegaly. Hernial orifices intact. Bowel sounds normal. NEUROLOGIC: She was sleepy, but arousable. All cranial nerves intact. She moves her left upper extremity without difficulty. Her right upper extremity is in a sling for right humeral fracture. She is able to walk with a walker ____ assist. Her intake over the last 24 hours was 1300, output was 800. LABORATORY DATA: As of this morning showed a serum sodium of 132, potassium 4, chloride 98, bicarbonate 26, anion gap of 8, BUN 16, creatinine 1.1, estimated GFR was 59 mL per minute. Her glucose was 151, calcium was 8. Total bilirubin, AST, ALT, alkaline phosphatase were normal. Total protein was 6.5, albumin 2.5. White cell count is 16,800, hemoglobin 8.3, hematocrit 26.9, MCV 84, and a platelet count of 488,000. ASSESSMENT: Small bowel obstruction, improving. The patient has had multiple bowel movements and is passing flatus. She is now on a clear liquid diet. Pneumonia as well as urinary tract infection for which she is on IV Flagyl and levofloxacin. Morbid obesity. Obstructive sleep apnea. Type 2 diabetes, for which she is on insulin sliding scale. PLAN: I will switch her to hydromorphone 1 mg every 3 hours and discontinue fentanyl. Start her on incentive spirometry and flutter valve, and also perhaps guaifenesin 400 mg 4 times a day. MICHELLE CRESPO MD DR: JARON/binta JOB#: [id number] / [id number]
[2016-12-10] MEDS: GUAIFENESIN DM 200MG/20MG 10 ML SYRUP. PO PRN ×3 (01:51→17:19)
[2016-12-10] MEDS: IV DEXTROSE 5 %-0.45 % NACL 1,000 ML IV SCH ×2 (01:52→23:20)
[2016-12-10] MEDS: HYDROMORPHONE 2 MG/ML VIAL. IV PRN ×5 (01:53→21:07)
[2016-12-10 03:00] VITALS: BP 129/67
[2016-12-10] MEDS: ONDANSETRON PF 4 MG/2 ML VIAL. IV PRN ×4 (03:57→23:27)
[2016-12-10] MEDS: METRONIDAZOLE 500mg PREMIX 100 ML IV SCH ×3 (06:04→21:34)
[2016-12-10 06:32] LABS: BASO % 0 % (0-3); EOS % 1 % (0-3); HEMATOCRIT 25.9 % (36.0-47.0); HEMOGLOBIN 8.1 g/dL (12.0-15.5); LYMPH # 1.8 x10^3/uL (1.0-4.8); LYMPH % 11 % (24-48); MEAN CORPUSCULAR HEMOGLOBIN 26 pg (25-35); MEAN CORPUSCULAR HGB CONC 31 g/dL (31-37); MEAN CORPUSCULAR VOLUME 83 fL (79-100); MONO % 8 % (0-9); NEUT % 79 % (31-73); PLATELET COUNT 480 x10^3/uL (140-400); RED BLOOD COUNT 3.13 x10^6/uL (3.50-5.40); RED CELL DISTRIBUTION WIDTH 17.8 % (11.5-14.5); WHITE BLOOD COUNT 16.2 x10^3/uL (4.0-11.0)
[2016-12-10 06:54] LABS: CALCIUM 7.9 mg/dL (8.5-10.1); GFR 54.5; POTASSIUM 4.5 mmol/L (3.5-5.1)
[2016-12-10 07:00] VITALS: BP 165/65
[2016-12-10] MEDS: IPRATRPIUM/ALBUTEROL 0.5/2.5MG 3 ML NEBU. NEB SCH ×4 (07:35→19:05)
[2016-12-10] MEDS: TIGECYCLINE 50 MG in IV NORMAL SALINE 50ML 50 ML IV SCH ×2 (07:57→21:27)
[2016-12-10] MEDS: NYSTATIN TOPICAL POWDER 15GM BOTTLE. TP SCH ×2 (07:58→21:13)
--- NOTE | 2016-12-10 08:07 | PDOC ---
Infectious Disease Note Subjective Subjective Feels better. Less cough. Some nausea still. + BM. Tolerating clears ROS ROS GEN: Denies fevers, chills, sweats HEENT: Denies blurred vision, sore throat CV: Denies chest pain RESP: Denies shortness of air, cough GI: Denies v/d NEURO: Denies confusion, dizziness MSK: Denies joint pain/swelling Vital Sign Vital Signs Vital Signs Date Time Temp Pulse Resp B/P Pulse Ox O2 Delivery O2 Flow Rate FiO2 12/10/16 07:36 Nasal Cannula 3.0 12/10/16 03:00 98.0 103 20 129/67 96 98.0 Physical Exam PHYSICAL EXAM GENERAL: NAD, Alert - chair HEENT: PERRL, OC/OP -dry NECK: Supple, no JVD, no LN LUNGS: mild rhonchi HEART: S1S2, no gallop, no murmur ABD: Soft, NT, no organomegaly, no rebound, Obese EXT: 1 plus edema, no cyanosis [employer] 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, 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 x 3, no focal neurologic deficit SKIN: No rash IV: Left chest - clean Labs Lab Laboratory Tests Test 12/09/16 11:23 12/09/16 16:33 12/09/16 20:57 12/10/16 06:05 Glucose (Fingerstick) 297mg/dL (70-99) 244mg/dL (70-99) 230mg/dL (70-99) White Blood Count 16.2x10^3/uL (4.0-11.0) Red Blood Count 3.13x10^6/uL (3.50-5.40) Hemoglobin 8.1g/dL (12.0-15.5) Hematocrit 25.9% (36.0-47.0) Mean Corpuscular Volume 83fL (79-100) Mean Corpuscular Hemoglobin 26pg (25-35) Mean Corpuscular Hemoglobin Concent 31g/dL (31-37) Red Cell Distribution Width 17.8% (11.5-14.5) Platelet Count 480x10^3/uL (140-400) Neutrophils (%) (Auto) 79% (31-73) Lymphocytes (%) (Auto) 11% (24-48) Monocytes (%) (Auto) 8% (0-9) Eosinophils (%) (Auto) 1% (0-3) Basophils (%) (Auto) 0% (0-3) Neutrophils # (Auto) 12.8x10^3uL (1.8-7.7) Lymphocytes # (Auto) 1.8x10^3/uL (1.0-4.8) Monocytes # (Auto) 1.3x10^3/uL (0.0-1.1) Eosinophils # (Auto) 0.2x10^3/uL (0.0-0.7) Basophils # (Auto) 0.0x10^3/uL (0.0-0.2) Sodium Level 133mmol/L (136-145) Potassium Level 4.5mmol/L (3.5-5.1) Chloride Level 99mmol/L (98-107) Carbon Dioxide Level 25mmol/L (21-32) Anion Gap 9 (6-14) Blood Urea Nitrogen 17mg/dL (7-20) Creatinine 1.0mg/dL (0.6-1.0) Estimated GFR (Cockcroft-Gault) 54.5 Glucose Level 322mg/dL (70-99) Calcium Level 7.9mg/dL (8.5-10.1) Test 12/10/16 07:41 Glucose (Fingerstick) 294mg/dL (70-99) Objective Assessment Partial SBO Multiple abx allergies - Amox/Cephalexin/sulfa rash - tolerated Biaxin Leukocytosis - ? reactive given difficulty with central line placement. has improved some today Sinus congestion Aspiration UTI klebsiella - res to Amp/Pip 12/02. Blood cult 12/02 - neg RUE fracture about 7 weeks ago DM Morbid obesity Plan Plan of Care Cont levoflox/Flagyl/ Tigecycline (12/09) for now - wean soon F/u labs/cults and response CARMINA HERNANDEZ MD Dec 10, 2016 08:07
[2016-12-10] MEDS: INSULIN ASPART 300 UNITS/3 ML INSULN.PEN SQ SCH ×3 (08:10→17:31)
[2016-12-10] MEDS: HEPARIN PF for SUB-Q USE 5,000 UNIT/0.5 ML VIAL. SQ SCH ×2 (08:11→21:09)
--- NOTE | 2016-12-10 09:24 | PDOC ---
SURGICAL PROGRESS NOTE Subjective Pt feels a little better, passing bowels, lori clears (not interested in advancing), nausea Vital Signs Vital Signs Date Time Temp Pulse Resp B/P Pulse Ox O2 Delivery O2 Flow Rate FiO2 12/10/16 08:12 Nasal Cannula 3.0 12/10/16 07:00 98.2 93 18 165/65 99 98.2 I&O Intake and Output 12/10/16 07:00 Intake Total 1650 ml Output Total 625 ml Balance 1025 ml Intake Oral 550 ml IV Total 1100 ml Output Urine Total 625 ml # Voids 1 # Bowel Movements 1 General: Alert, Oriented X3, Cooperative, No acute distress Abdomen: Soft, No tenderness Labs Laboratory Tests Test 12/08/16 10:35 12/08/16 17:02 12/08/16 17:30 12/08/16 21:10 White Blood Count 15.7x10^3/uL (4.0-11.0) Red Blood Count 3.40x10^6/uL (3.50-5.40) Hemoglobin 8.8g/dL (12.0-15.5) Hematocrit 27.8% (36.0-47.0) Mean Corpuscular Volume 82fL (79-100) Mean Corpuscular Hemoglobin 26pg (25-35) Mean Corpuscular Hemoglobin Concent 32g/dL (31-37) Red Cell Distribution Width 17.9% (11.5-14.5) Platelet Count 521x10^3/uL (140-400) Neutrophils (%) (Auto) 78% (31-73) Lymphocytes (%) (Auto) 16% (24-48) Monocytes (%) (Auto) 6% (0-9) Eosinophils (%) (Auto) 0% (0-3) Basophils (%) (Auto) 0% (0-3) Neutrophils # (Auto) 12.3x10^3uL (1.8-7.7) Lymphocytes # (Auto) 2.4x10^3/uL (1.0-4.8) Monocytes # (Auto) 0.9x10^3/uL (0.0-1.1) Eosinophils # (Auto) 0.0x10^3/uL (0.0-0.7) Basophils # (Auto) 0.1x10^3/uL (0.0-0.2) Sodium Level 132mmol/L (136-145) Potassium Level 4.3mmol/L (3.5-5.1) Chloride Level 96mmol/L (98-107) Carbon Dioxide Level 29mmol/L (21-32) Anion Gap 7 (6-14) Blood Urea Nitrogen 20mg/dL (7-20) Creatinine 1.2mg/dL (0.6-1.0) Estimated GFR (Cockcroft-Gault) 44.2 BUN/Creatinine Ratio 17 (6-20) Glucose Level 250mg/dL (70-99) Calcium Level 8.4mg/dL (8.5-10.1) Total Bilirubin 0.3mg/dL (0.2-1.0) Aspartate Amino Transf (AST/SGOT) 14U/L (15-37) Alanine Aminotransferase (ALT/SGPT) 21U/L (14-59) Alkaline Phosphatase 87U/L (46-116) Total Protein 6.6g/dL (6.4-8.2) Albumin 2.6g/dL (3.4-5.0) Albumin/Globulin Ratio 0.7 (1.0-1.7) Glucose (Fingerstick) 212mg/dL (70-99) 216mg/dL (70-99) Influenza Type A Antigen Negative (NEGATIVE) Influenza Type B Antigen Negative (NEGATIVE) Test 12/09/16 05:45 12/09/16 07:29 12/09/16 11:23 12/09/16 16:33 White Blood Count 16.8x10^3/uL (4.0-11.0) Red Blood Count 3.22x10^6/uL (3.50-5.40) Hemoglobin 8.3g/dL (12.0-15.5) Hematocrit 26.9% (36.0-47.0) Mean Corpuscular Volume 84fL (79-100) Mean Corpuscular Hemoglobin 26pg (25-35) Mean Corpuscular Hemoglobin Concent 31g/dL (31-37) Red Cell Distribution Width 17.5% (11.5-14.5) Platelet Count 488x10^3/uL (140-400) Neutrophils (%) (Auto) 79% (31-73) Lymphocytes (%) (Auto) 14% (24-48) Monocytes (%) (Auto) 6% (0-9) Eosinophils (%) (Auto) 1% (0-3) Basophils (%) (Auto) 0% (0-3) Neutrophils # (Auto) 13.3x10^3uL (1.8-7.7) Lymphocytes # (Auto) 2.3x10^3/uL (1.0-4.8) Monocytes # (Auto) 1.1x10^3/uL (0.0-1.1) Eosinophils # (Auto) 0.1x10^3/uL (0.0-0.7) Basophils # (Auto) 0.0x10^3/uL (0.0-0.2) Sodium Level 132mmol/L (136-145) Potassium Level 4.0mmol/L (3.5-5.1) Chloride Level 98mmol/L (98-107) Carbon Dioxide Level 26mmol/L (21-32) Anion Gap 8 (6-14) Blood Urea Nitrogen 16mg/dL (7-20) Creatinine 1.1mg/dL (0.6-1.0) Estimated GFR (Cockcroft-Gault) 48.8 BUN/Creatinine Ratio 15 (6-20) Glucose Level 251mg/dL (70-99) Calcium Level 8.0mg/dL (8.5-10.1) Total Bilirubin 0.4mg/dL (0.2-1.0) Aspartate Amino Transf (AST/SGOT) 16U/L (15-37) Alanine Aminotransferase (ALT/SGPT) 22U/L (14-59) Alkaline Phosphatase 85U/L (46-116) Total Protein 6.5g/dL (6.4-8.2) Albumin 2.5g/dL (3.4-5.0) Albumin/Globulin Ratio 0.6 (1.0-1.7) Glucose (Fingerstick) 254mg/dL (70-99) 297mg/dL (70-99) 244mg/dL (70-99) Test 12/09/16 20:57 12/10/16 06:05 12/10/16 07:41 Glucose (Fingerstick) 230mg/dL (70-99) 294mg/dL (70-99) White Blood Count 16.2x10^3/uL (4.0-11.0) Red Blood Count 3.13x10^6/uL (3.50-5.40) Hemoglobin 8.1g/dL (12.0-15.5) Hematocrit 25.9% (36.0-47.0) Mean Corpuscular Volume 83fL (79-100) Mean Corpuscular Hemoglobin 26pg (25-35) Mean Corpuscular Hemoglobin Concent 31g/dL (31-37) Red Cell Distribution Width 17.8% (11.5-14.5) Platelet Count 480x10^3/uL (140-400) Neutrophils (%) (Auto) 79% (31-73) Lymphocytes (%) (Auto) 11% (24-48) Monocytes (%) (Auto) 8% (0-9) Eosinophils (%) (Auto) 1% (0-3) Basophils (%) (Auto) 0% (0-3) Neutrophils # (Auto) 12.8x10^3uL (1.8-7.7) Lymphocytes # (Auto) 1.8x10^3/uL (1.0-4.8) Monocytes # (Auto) 1.3x10^3/uL (0.0-1.1) Eosinophils # (Auto) 0.2x10^3/uL (0.0-0.7) Basophils # (Auto) 0.0x10^3/uL (0.0-0.2) Sodium Level 133mmol/L (136-145) Potassium Level 4.5mmol/L (3.5-5.1) Chloride Level 99mmol/L (98-107) Carbon Dioxide Level 25mmol/L (21-32) Anion Gap 9 (6-14) Blood Urea Nitrogen 17mg/dL (7-20) Creatinine 1.0mg/dL (0.6-1.0) Estimated GFR (Cockcroft-Gault) 54.5 Glucose Level 322mg/dL (70-99) Calcium Level 7.9mg/dL (8.5-10.1) Laboratory Tests Test 12/09/16 11:23 12/09/16 16:33 12/09/16 20:57 12/10/16 06:05 Glucose (Fingerstick) 297mg/dL (70-99) 244mg/dL (70-99) 230mg/dL (70-99) White Blood Count 16.2x10^3/uL (4.0-11.0) Red Blood Count 3.13x10^6/uL (3.50-5.40) Hemoglobin 8.1g/dL (12.0-15.5) Hematocrit 25.9% (36.0-47.0) Mean Corpuscular Volume 83fL (79-100) Mean Corpuscular Hemoglobin 26pg (25-35) Mean Corpuscular Hemoglobin Concent 31g/dL (31-37) Red Cell Distribution Width 17.8% (11.5-14.5) Platelet Count 480x10^3/uL (140-400) Neutrophils (%) (Auto) 79% (31-73) Lymphocytes (%) (Auto) 11% (24-48) Monocytes (%) (Auto) 8% (0-9) Eosinophils (%) (Auto) 1% (0-3) Basophils (%) (Auto) 0% (0-3) Neutrophils # (Auto) 12.8x10^3uL (1.8-7.7) Lymphocytes # (Auto) 1.8x10^3/uL (1.0-4.8) Monocytes # (Auto) 1.3x10^3/uL (0.0-1.1) Eosinophils # (Auto) 0.2x10^3/uL (0.0-0.7) Basophils # (Auto) 0.0x10^3/uL (0.0-0.2) Sodium Level 133mmol/L (136-145) Potassium Level 4.5mmol/L (3.5-5.1) Chloride Level 99mmol/L (98-107) Carbon Dioxide Level 25mmol/L (21-32) Anion Gap 9 (6-14) Blood Urea Nitrogen 17mg/dL (7-20) Creatinine 1.0mg/dL (0.6-1.0) Estimated GFR (Cockcroft-Gault) 54.5 Glucose Level 322mg/dL (70-99) Calcium Level 7.9mg/dL (8.5-10.1) Test 12/10/16 07:41 Glucose (Fingerstick) 294mg/dL (70-99) Problem List SBO vs ileus cont clears and monitor pt poor surgical candidate Problems: ERIBERTO ARMSTRONG MD Dec 10, 2016 09:24
[2016-12-10] MEDS ORDERED: DEXTROSE 50% 25 GM / 50ML DISP.SYRIN. IV PRN (10:15)
[2016-12-10] MEDS ORDERED: INSULIN ASPART 300 UNITS/3 ML INSULN.PEN SQ SCH (10:15)
[2016-12-10 11:00] VITALS: BP 162/68
--- NOTE | 2016-12-10 13:55 | RAD ---
Indication persistent pain associated with a fall 7 weeks ago. An AP view of the right hip and 2 frog leg views were obtained. There are some modest degenerative changes. No acute bony finding is seen. Some vascular calcification is noted. IMPRESSION: No acute bony finding
--- NOTE | 2016-12-10 14:25 | PDOC ---
PULMONARY PROGRESS NOTES Subjective feels better having BM Vitals Vital Signs Date Time Temp Pulse Resp B/P Pulse Ox O2 Delivery O2 Flow Rate FiO2 12/10/16 11:02 97 Nasal Cannula 3.0 12/10/16 11:00 97.9 97 18 162/68 97.9 General: Alert, No acute distress Lungs: Other (decrease bs) Cardiovascular: S1, S2 Abdomen: Soft, Other (markedly obese) Neuro Exam: Alert Extremities: Other Labs Laboratory Tests Test 12/08/16 17:02 12/08/16 17:30 12/08/16 21:10 12/09/16 05:45 Glucose (Fingerstick) 212mg/dL (70-99) 216mg/dL (70-99) Influenza Type A Antigen Negative (NEGATIVE) Influenza Type B Antigen Negative (NEGATIVE) White Blood Count 16.8x10^3/uL (4.0-11.0) Red Blood Count 3.22x10^6/uL (3.50-5.40) Hemoglobin 8.3g/dL (12.0-15.5) Hematocrit 26.9% (36.0-47.0) Mean Corpuscular Volume 84fL (79-100) Mean Corpuscular Hemoglobin 26pg (25-35) Mean Corpuscular Hemoglobin Concent 31g/dL (31-37) Red Cell Distribution Width 17.5% (11.5-14.5) Platelet Count 488x10^3/uL (140-400) Neutrophils (%) (Auto) 79% (31-73) Lymphocytes (%) (Auto) 14% (24-48) Monocytes (%) (Auto) 6% (0-9) Eosinophils (%) (Auto) 1% (0-3) Basophils (%) (Auto) 0% (0-3) Neutrophils # (Auto) 13.3x10^3uL (1.8-7.7) Lymphocytes # (Auto) 2.3x10^3/uL (1.0-4.8) Monocytes # (Auto) 1.1x10^3/uL (0.0-1.1) Eosinophils # (Auto) 0.1x10^3/uL (0.0-0.7) Basophils # (Auto) 0.0x10^3/uL (0.0-0.2) Sodium Level 132mmol/L (136-145) Potassium Level 4.0mmol/L (3.5-5.1) Chloride Level 98mmol/L (98-107) Carbon Dioxide Level 26mmol/L (21-32) Anion Gap 8 (6-14) Blood Urea Nitrogen 16mg/dL (7-20) Creatinine 1.1mg/dL (0.6-1.0) Estimated GFR (Cockcroft-Gault) 48.8 BUN/Creatinine Ratio 15 (6-20) Glucose Level 251mg/dL (70-99) Calcium Level 8.0mg/dL (8.5-10.1) Total Bilirubin 0.4mg/dL (0.2-1.0) Aspartate Amino Transf (AST/SGOT) 16U/L (15-37) Alanine Aminotransferase (ALT/SGPT) 22U/L (14-59) Alkaline Phosphatase 85U/L (46-116) Total Protein 6.5g/dL (6.4-8.2) Albumin 2.5g/dL (3.4-5.0) Albumin/Globulin Ratio 0.6 (1.0-1.7) Test 12/09/16 07:29 12/09/16 11:23 12/09/16 16:33 12/09/16 20:57 Glucose (Fingerstick) 254mg/dL (70-99) 297mg/dL (70-99) 244mg/dL (70-99) 230mg/dL (70-99) Test 12/10/16 06:05 12/10/16 07:41 12/10/16 11:57 White Blood Count 16.2x10^3/uL (4.0-11.0) Red Blood Count 3.13x10^6/uL (3.50-5.40) Hemoglobin 8.1g/dL (12.0-15.5) Hematocrit 25.9% (36.0-47.0) Mean Corpuscular Volume 83fL (79-100) Mean Corpuscular Hemoglobin 26pg (25-35) Mean Corpuscular Hemoglobin Concent 31g/dL (31-37) Red Cell Distribution Width 17.8% (11.5-14.5) Platelet Count 480x10^3/uL (140-400) Neutrophils (%) (Auto) 79% (31-73) Lymphocytes (%) (Auto) 11% (24-48) Monocytes (%) (Auto) 8% (0-9) Eosinophils (%) (Auto) 1% (0-3) Basophils (%) (Auto) 0% (0-3) Neutrophils # (Auto) 12.8x10^3uL (1.8-7.7) Lymphocytes # (Auto) 1.8x10^3/uL (1.0-4.8) Monocytes # (Auto) 1.3x10^3/uL (0.0-1.1) Eosinophils # (Auto) 0.2x10^3/uL (0.0-0.7) Basophils # (Auto) 0.0x10^3/uL (0.0-0.2) Sodium Level 133mmol/L (136-145) Potassium Level 4.5mmol/L (3.5-5.1) Chloride Level 99mmol/L (98-107) Carbon Dioxide Level 25mmol/L (21-32) Anion Gap 9 (6-14) Blood Urea Nitrogen 17mg/dL (7-20) Creatinine 1.0mg/dL (0.6-1.0) Estimated GFR (Cockcroft-Gault) 54.5 Glucose Level 322mg/dL (70-99) Calcium Level 7.9mg/dL (8.5-10.1) Glucose (Fingerstick) 294mg/dL (70-99) 202mg/dL (70-99) Laboratory Tests Test 12/09/16 16:33 12/09/16 20:57 12/10/16 06:05 12/10/16 07:41 Glucose (Fingerstick) 244mg/dL (70-99) 230mg/dL (70-99) 294mg/dL (70-99) White Blood Count 16.2x10^3/uL (4.0-11.0) Red Blood Count 3.13x10^6/uL (3.50-5.40) Hemoglobin 8.1g/dL (12.0-15.5) Hematocrit 25.9% (36.0-47.0) Mean Corpuscular Volume 83fL (79-100) Mean Corpuscular Hemoglobin 26pg (25-35) Mean Corpuscular Hemoglobin Concent 31g/dL (31-37) Red Cell Distribution Width 17.8% (11.5-14.5) Platelet Count 480x10^3/uL (140-400) Neutrophils (%) (Auto) 79% (31-73) Lymphocytes (%) (Auto) 11% (24-48) Monocytes (%) (Auto) 8% (0-9) Eosinophils (%) (Auto) 1% (0-3) Basophils (%) (Auto) 0% (0-3) Neutrophils # (Auto) 12.8x10^3uL (1.8-7.7) Lymphocytes # (Auto) 1.8x10^3/uL (1.0-4.8) Monocytes # (Auto) 1.3x10^3/uL (0.0-1.1) Eosinophils # (Auto) 0.2x10^3/uL (0.0-0.7) Basophils # (Auto) 0.0x10^3/uL (0.0-0.2) Sodium Level 133mmol/L (136-145) Potassium Level 4.5mmol/L (3.5-5.1) Chloride Level 99mmol/L (98-107) Carbon Dioxide Level 25mmol/L (21-32) Anion Gap 9 (6-14) Blood Urea Nitrogen 17mg/dL (7-20) Creatinine 1.0mg/dL (0.6-1.0) Estimated GFR (Cockcroft-Gault) 54.5 Glucose Level 322mg/dL (70-99) Calcium Level 7.9mg/dL (8.5-10.1) Test 12/10/16 11:57 Glucose (Fingerstick) 202mg/dL (70-99) Medications Active Scripts Medications Dose Route/Sig Days Date Category Mupirocin Ointment (Mupirocin) 22 Gm Oint...g. 1 Faheem TP TID 09/17/16 Reported Doxycycline Hyclate 100 Mg Capsule 100 Mg PO BID 09/17/16 Reported Oxybutynin Chloride 5 Mg Tablet 5 Mg PO HS 06/22/16 Reported Myrbetriq (Mirabegron) 50 Mg Tab.er.24h 50 Mg PO HS 06/22/16 Reported Melatonin 5 Mg Tablet 5 Mg PO HS 06/22/16 Reported Advair 250-50 Diskus (Fluticasone/Salmeterol) 1 Each Disk.w.dev 1 Inh IH BID 06/22/16 Reported Proair Hfa Inhaler (Albuterol Sulfate) 8.5 Gm Hfa.aer.ad 1 Puff INH PRN Q6HRS PRN 06/22/16 Reported Vitamin C (Ascorbic Acid) 500 Mg Tablet.er 500 Mg PO DAILY 06/22/16 Reported Zinc Lozenges (Vit A Acet/Vit C/Znox/Propolis) 1 Each Lozenge 1 Each PO DAILY 06/22/16 Reported Oxycodone Hcl 5 Mg Tablet 5 Mg PO Q4HRS PRN 06/22/16 Reported Humalog (Insulin Lispro) 100 Unit/1 Ml Insuln.pen 10 Unit SQ TIDAC 04/20/15 Reported Lantus (Insulin Glargine,Hum.rec.anlog) 100 Unit/1 Ml Vial 38 Unit SQ HS 04/20/15 Reported Alprazolam 1 Mg Tablet 0.5 Tab PO TID PRN 04/20/15 Reported Metformin Hcl 500 Mg Tablet 1 Tab PO BID 04/20/15 Reported Colace (Docusate Sodium) 100 Mg Capsule 1 Cap PO BID 04/20/15 Reported Rizatriptan (Rizatriptan Benzoate) 5 Mg Tablet 5 Mg PO DAILY PRN 04/20/15 Reported Topiramate 200 Mg Tablet 200 Mg PO HS PRN 04/20/15 Reported Promethazine Hcl 25 Mg Tablet 1 Tab PO PRN Q4HRS PRN 04/20/15 Reported Losartan Potassium 100 Mg Tablet 1 Tab PO DAILY 04/20/15 Reported Gabapentin 300 Mg Capsule 1 Cap PO BID 04/20/15 Reported Levothyroxine Sodium 75 Mcg Tablet 1 Tab PO DAILY 04/20/15 Reported [place] 10-325 Tablet (Acetaminophen/Hydrocodone Bitart) 1 Each Tablet 1-2 Tab PO Q4-6HRS 04/20/15 Reported Impression . 1. Cough, which has been present for the last few days. I suspect combination of viral bronchitis and suspected aspiration of gastric contents. Her abdomen is markedly distended and she has small bowel obstruction. improving 2. Abnormal chest x-ray on the with right lower lobe atelectasis. 3. Suspected obesity hypoventilation syndrome. 4. Underlying chronic respiratory failure, on home oxygen at 3.5 L nasal cannula. 5. Neg influenza. Plan . 1. Influenza Neg 2. Continue with present bronchodilators. 3. Continue with empiric antibiotics. 4. Keep head of the bed elevated to minimize any acid aspiration. 5. Management of small bowel obstruction per PCP and GI. 6. Weight loss was strongly emphasized to the patient. 7. Incentive spirometry. 8. Repeat chest x-ray with RLL atelectasis 9. We will follow along with you. MITA ASHLEY MD Dec 10, 2016 14:24
[2016-12-10 15:00] VITALS: BP 149/64
[2016-12-10 19:00] VITALS: BP 150/71
[2016-12-10] MEDS ORDERED: INSULIN DETEMIR 300 UNITS/3 ML INSULN.PEN. SQ SCH (21:00)
[2016-12-10 23:00] VITALS: BP 152/50
--- NOTE | 2016-12-10 23:55 | PN ---
DATE: 12/10/2016 SUBJECTIVE: The patient is sitting in her recliner, no apparent respiratory distress. She continued to complain of nausea, although she tolerated her clear liquid diet, so far has not vomited. She stated she has passed lot of gas, but no bowel movement today. PHYSICAL EXAMINATION: GENERAL: When I examined her, she looked well and was clearly in no apparent respiratory distress, pale, jaundice, cyanosis, or thyromegaly. No jugular venous distention. No lower limb edema. VITAL SIGNS: Her heart rate was 93, blood pressure was 165/65, temperature was 98.2, respiratory rate was 18 and oxygen saturation was 99% on 3 liters of oxygen. HEAD, EYES, EARS, NOSE AND THROAT: Showed normocephalic, atraumatic. NECK: Supple. HEART: Showed normal first and second heart sounds. No gallop, rub or murmur. CHEST: Shows central trachea, equally reduced expansion, reduced air entry, vesicular sounds, bilateral ____ basal crepitations, more so on the left. I could not really appreciate any rhonchi. ABDOMEN: Distended, soft, nontender, bowel sounds are audible. NEUROLOGIC: Awake, alert, responding appropriately. Cranial nerves intact. She moves her left upper extremity, her right upper extremity is in a sling due to fracture of the right humerus. She is mostly bed bound, chair bound, however, she is able to walk with a walker with assistance. Her intake over the last 24 hours was 1650, output was 625. LABORATORY DATA: This morning showed a serum sodium 133, potassium 4.5, chloride 99, bicarbonate 25, anion gap of 9, BUN 17, creatinine 1, estimated GFR was 54 mL per minute. Her glucose was 322, calcium was 7.9. Her white cell count was 16,200, hemoglobin was 8.1, hematocrit 25.9, MCV 83 and platelet count ____. ASSESSMENT: 1. Small-bowel obstruction, improving. The patient stated she had ____ flatus, although she had no bowel movement. She does complain of nausea, but no vomiting. 2. Pneumonia as well as urinary tract infection for which she continues to be on IV Flagyl and levofloxacin and tigecycline. 3. Morbid obesity, obstructive sleep apnea. 4. Type 2 diabetes, which is suboptimally controlled. PLAN: My plan is to adjust her insulin sliding scale to a higher dose to be given every 6 hours, so that she has better control of her blood sugar. MICHELLE CRESPO MD DR: JARON/binta JOB#: [id number] / [id number]
[2016-12-11] MEDS: HYDROMORPHONE 2 MG/ML VIAL. IV PRN ×5 (01:41→20:16)
[2016-12-11 03:00] VITALS: BP 174/73
[2016-12-11] MEDS: METRONIDAZOLE 500mg PREMIX 100 ML IV SCH ×3 (05:13→21:39)
[2016-12-11] MEDS: IPRATRPIUM/ALBUTEROL 0.5/2.5MG 3 ML NEBU. NEB SCH ×4 (06:48→18:36)
[2016-12-11] MEDS: IV DEXTROSE 5 %-0.45 % NACL 1,000 ML IV SCH ×2 (07:45→13:37)
[2016-12-11] MEDS: INSULIN ASPART 300 UNITS/3 ML INSULN.PEN SQ SCH ×5 (09:00→21:00)
[2016-12-11] MEDS: TIGECYCLINE 50 MG in IV NORMAL SALINE 50ML 50 ML IV SCH ×2 (09:33→20:15)
[2016-12-11] MEDS: NYSTATIN TOPICAL POWDER 15GM BOTTLE. TP SCH ×2 (09:35→20:36)
[2016-12-11] MEDS: HEPARIN PF for SUB-Q USE 5,000 UNIT/0.5 ML VIAL. SQ SCH ×2 (09:42→20:36)
--- NOTE | 2016-12-11 10:00 | PDOC ---
PURVI [employer] [employer] 12/11/16 0959: SURGICAL PROGRESS NOTE Subjective tolerating clears, has wished to not advance diet yet + flatus and stool abdominal pain unchanged Vital Signs Vital Signs Date Time Temp Pulse Resp B/P Pulse Ox O2 Delivery O2 Flow Rate FiO2 12/11/16 09:34 Nasal Cannula 12/11/16 05:10 4.0 12/11/16 03:00 97.4 105 22 174/73 99 97.4 General: Alert, Oriented X3, Cooperative, No acute distress Abdomen: Soft, Other (obese) Labs Laboratory Tests Test 12/09/16 11:23 12/09/16 16:33 12/09/16 20:57 12/10/16 06:05 Glucose (Fingerstick) 297mg/dL (70-99) 244mg/dL (70-99) 230mg/dL (70-99) White Blood Count 16.2x10^3/uL (4.0-11.0) Red Blood Count 3.13x10^6/uL (3.50-5.40) Hemoglobin 8.1g/dL (12.0-15.5) Hematocrit 25.9% (36.0-47.0) Mean Corpuscular Volume 83fL (79-100) Mean Corpuscular Hemoglobin 26pg (25-35) Mean Corpuscular Hemoglobin Concent 31g/dL (31-37) Red Cell Distribution Width 17.8% (11.5-14.5) Platelet Count 480x10^3/uL (140-400) Neutrophils (%) (Auto) 79% (31-73) Lymphocytes (%) (Auto) 11% (24-48) Monocytes (%) (Auto) 8% (0-9) Eosinophils (%) (Auto) 1% (0-3) Basophils (%) (Auto) 0% (0-3) Neutrophils # (Auto) 12.8x10^3uL (1.8-7.7) Lymphocytes # (Auto) 1.8x10^3/uL (1.0-4.8) Monocytes # (Auto) 1.3x10^3/uL (0.0-1.1) Eosinophils # (Auto) 0.2x10^3/uL (0.0-0.7) Basophils # (Auto) 0.0x10^3/uL (0.0-0.2) Sodium Level 133mmol/L (136-145) Potassium Level 4.5mmol/L (3.5-5.1) Chloride Level 99mmol/L (98-107) Carbon Dioxide Level 25mmol/L (21-32) Anion Gap 9 (6-14) Blood Urea Nitrogen 17mg/dL (7-20) Creatinine 1.0mg/dL (0.6-1.0) Estimated GFR (Cockcroft-Gault) 54.5 Glucose Level 322mg/dL (70-99) Calcium Level 7.9mg/dL (8.5-10.1) Test 12/10/16 07:41 12/10/16 11:57 12/10/16 17:16 12/10/16 21:07 Glucose (Fingerstick) 294mg/dL (70-99) 202mg/dL (70-99) 317mg/dL (70-99) 252mg/dL (70-99) Test 12/11/16 07:54 Glucose (Fingerstick) 274mg/dL (70-99) Laboratory Tests Test 12/10/16 11:57 12/10/16 17:16 12/10/16 21:07 12/11/16 07:54 Glucose (Fingerstick) 202mg/dL (70-99) 317mg/dL (70-99) 252mg/dL (70-99) 274mg/dL (70-99) Problem List sbo vs ileus VIH, morbid obesity cont clears and monitor pt poor surgical candidate Problems: ZA ISABEL MD 12/12/16 1040: SURGICAL PROGRESS NOTE Assessment/Plan Agree with above Problems: PURVI ESPARZA CEMENT CUTTER Dec 11, 2016 09:59 ZA ISABEL MD Dec 12, 2016 10:40
[2016-12-11] MEDS: ONDANSETRON PF 4 MG/2 ML VIAL. IV PRN ×2 (10:02→20:15)
[2016-12-11 11:00] VITALS: BP 139/56
[2016-12-11 11:07] LABS: GFR 54.5; POTASSIUM 3.9 mmol/L (3.5-5.1)
[2016-12-11] MEDS: ALPRAZOLAM 1 MG TABLET PO PRN ×2 (13:37→21:39)
--- NOTE | 2016-12-11 14:02 | PDOC ---
Infectious Disease Note Subjective Subjective c/o back, legs and right arm pain + nonproductive cough and SOA with activity. ROS ROS GEN: Denies fevers, chills, sweats HEENT: Denies blurred vision, sore throat CV: Denies chest pain RESP: Denies shortness of air, cough GI: Denies n/v/d NEURO: Denies confusion, dizziness MSK: Denies weakness, joint pain/swelling Vital Sign Vital Signs Vital Signs Date Time Temp Pulse Resp B/P Pulse Ox O2 Delivery O2 Flow Rate FiO2 12/11/16 11:00 98.2 101 18 139/56 90 Nasal Cannula 2.0 98.2 Physical Exam PHYSICAL EXAM GENERAL: Up in the chair, NAD HENT: Edentulous. dry NECK: Supple with good range of motion. No obvious JVD. LUNGS: Mild congestion, nonlabored HEART: Distant S1, S2. ABDOMEN: Obese, soft. Decreased bowel sounds. EXTREMITIES: Without clubbing, cyanosis. + BLE edema chronic venous stasis changes. Right arm in sling NEUROLOGIC: Alert, oriented. Left chest tunneled venous cath. clean Labs Lab Laboratory Tests Test 12/10/16 17:16 12/10/16 21:07 12/11/16 07:54 12/11/16 10:35 Glucose (Fingerstick) 317mg/dL (70-99) 252mg/dL (70-99) 274mg/dL (70-99) Sodium Level 135mmol/L (136-145) Potassium Level 3.9mmol/L (3.5-5.1) Chloride Level 102mmol/L (98-107) Carbon Dioxide Level 22mmol/L (21-32) Anion Gap 11 (6-14) Blood Urea Nitrogen 16mg/dL (7-20) Creatinine 1.0mg/dL (0.6-1.0) Estimated GFR (Cockcroft-Gault) 54.5 Glucose Level 239mg/dL (70-99) Calcium Level 8.0mg/dL (8.5-10.1) Test 12/11/16 11:14 Glucose (Fingerstick) 238mg/dL (70-99) Objective Assessment Partial SBO Multiple abx allergies - Amox/Cephalexin/sulfa rash - tolerated Biaxin Leukocytosis - ? reactive given difficulty with central line placement. has improved some today Sinus congestion Aspiration UTI klebsiella - res to Amp/Pip 12/02. Blood cult 12/02 - neg RUE fracture about 7 weeks ago DM Morbid obesity Plan Plan of Care Cont levofloxacin, Flagyl & Tigecycline (12/09) for now - wean soon Monitor labs. Supportive care Patient seen and examined. Chart reviewed. Case discussed with BENEFIT SPECIALIST. Agree with above plan. PERRY DUNHAM APRN Dec 11, 2016 14:02 FIGUEROA URIOSTEGUI MD Dec 11, 2016 22:45
--- NOTE | 2016-12-11 14:42 | PDOC ---
PULMONARY PROGRESS NOTES Subjective Afebrile, no overnight events. no sob, + cough, non-productive, no chest pain. + abd discomfort. + Nausea. Vitals Vital Signs Date Time Temp Pulse Resp B/P Pulse Ox O2 Delivery O2 Flow Rate FiO2 12/11/16 11:00 98.2 101 18 139/56 90 Nasal Cannula 2.0 98.2 ROS: No Nausea, No Chest Pain General: Alert, Oriented X4, No acute distress Lungs: Crackles, Other (decrease bs in bases ) Cardiovascular: S1, S2 Abdomen: Soft, Other (markedly obese) Neuro Exam: Alert, Oriented, Normal Speech Extremities: Other (+ edema) Skin: Warm, Dry Labs Laboratory Tests Test 12/09/16 16:33 12/09/16 20:57 12/10/16 06:05 12/10/16 07:41 Glucose (Fingerstick) 244mg/dL (70-99) 230mg/dL (70-99) 294mg/dL (70-99) White Blood Count 16.2x10^3/uL (4.0-11.0) Red Blood Count 3.13x10^6/uL (3.50-5.40) Hemoglobin 8.1g/dL (12.0-15.5) Hematocrit 25.9% (36.0-47.0) Mean Corpuscular Volume 83fL (79-100) Mean Corpuscular Hemoglobin 26pg (25-35) Mean Corpuscular Hemoglobin Concent 31g/dL (31-37) Red Cell Distribution Width 17.8% (11.5-14.5) Platelet Count 480x10^3/uL (140-400) Neutrophils (%) (Auto) 79% (31-73) Lymphocytes (%) (Auto) 11% (24-48) Monocytes (%) (Auto) 8% (0-9) Eosinophils (%) (Auto) 1% (0-3) Basophils (%) (Auto) 0% (0-3) Neutrophils # (Auto) 12.8x10^3uL (1.8-7.7) Lymphocytes # (Auto) 1.8x10^3/uL (1.0-4.8) Monocytes # (Auto) 1.3x10^3/uL (0.0-1.1) Eosinophils # (Auto) 0.2x10^3/uL (0.0-0.7) Basophils # (Auto) 0.0x10^3/uL (0.0-0.2) Sodium Level 133mmol/L (136-145) Potassium Level 4.5mmol/L (3.5-5.1) Chloride Level 99mmol/L (98-107) Carbon Dioxide Level 25mmol/L (21-32) Anion Gap 9 (6-14) Blood Urea Nitrogen 17mg/dL (7-20) Creatinine 1.0mg/dL (0.6-1.0) Estimated GFR (Cockcroft-Gault) 54.5 Glucose Level 322mg/dL (70-99) Calcium Level 7.9mg/dL (8.5-10.1) Test 12/10/16 11:57 12/10/16 17:16 12/10/16 21:07 12/11/16 07:54 Glucose (Fingerstick) 202mg/dL (70-99) 317mg/dL (70-99) 252mg/dL (70-99) 274mg/dL (70-99) Test 12/11/16 10:35 12/11/16 11:14 Sodium Level 135mmol/L (136-145) Potassium Level 3.9mmol/L (3.5-5.1) Chloride Level 102mmol/L (98-107) Carbon Dioxide Level 22mmol/L (21-32) Anion Gap 11 (6-14) Blood Urea Nitrogen 16mg/dL (7-20) Creatinine 1.0mg/dL (0.6-1.0) Estimated GFR (Cockcroft-Gault) 54.5 Glucose Level 239mg/dL (70-99) Calcium Level 8.0mg/dL (8.5-10.1) Glucose (Fingerstick) 238mg/dL (70-99) Laboratory Tests Test 12/10/16 17:16 12/10/16 21:07 12/11/16 07:54 12/11/16 10:35 Glucose (Fingerstick) 317mg/dL (70-99) 252mg/dL (70-99) 274mg/dL (70-99) Sodium Level 135mmol/L (136-145) Potassium Level 3.9mmol/L (3.5-5.1) Chloride Level 102mmol/L (98-107) Carbon Dioxide Level 22mmol/L (21-32) Anion Gap 11 (6-14) Blood Urea Nitrogen 16mg/dL (7-20) Creatinine 1.0mg/dL (0.6-1.0) Estimated GFR (Cockcroft-Gault) 54.5 Glucose Level 239mg/dL (70-99) Calcium Level 8.0mg/dL (8.5-10.1) Test 12/11/16 11:14 Glucose (Fingerstick) 238mg/dL (70-99) Medications Active Scripts Medications Dose Route/Sig Days Date Category Mupirocin Ointment (Mupirocin) 22 Gm Oint...g. 1 Faheem TP TID 09/17/16 Reported Doxycycline Hyclate 100 Mg Capsule 100 Mg PO BID 09/17/16 Reported Oxybutynin Chloride 5 Mg Tablet 5 Mg PO HS 06/22/16 Reported Myrbetriq (Mirabegron) 50 Mg Tab.er.24h 50 Mg PO HS 06/22/16 Reported Melatonin 5 Mg Tablet 5 Mg PO HS 06/22/16 Reported Advair 250-50 Diskus (Fluticasone/Salmeterol) 1 Each Disk.w.dev 1 Inh IH BID 06/22/16 Reported Proair Hfa Inhaler (Albuterol Sulfate) 8.5 Gm Hfa.aer.ad 1 Puff INH PRN Q6HRS PRN 06/22/16 Reported Vitamin C (Ascorbic Acid) 500 Mg Tablet.er 500 Mg PO DAILY 06/22/16 Reported Zinc Lozenges (Vit A Acet/Vit C/Znox/Propolis) 1 Each Lozenge 1 Each PO DAILY 06/22/16 Reported Oxycodone Hcl 5 Mg Tablet 5 Mg PO Q4HRS PRN 06/22/16 Reported Humalog (Insulin Lispro) 100 Unit/1 Ml Insuln.pen 10 Unit SQ TIDAC 04/20/15 Reported Lantus (Insulin Glargine,Hum.rec.anlog) 100 Unit/1 Ml Vial 38 Unit SQ HS 04/20/15 Reported Alprazolam 1 Mg Tablet 0.5 Tab PO TID PRN 04/20/15 Reported Metformin Hcl 500 Mg Tablet 1 Tab PO BID 04/20/15 Reported Colace (Docusate Sodium) 100 Mg Capsule 1 Cap PO BID 04/20/15 Reported Rizatriptan (Rizatriptan Benzoate) 5 Mg Tablet 5 Mg PO DAILY PRN 04/20/15 Reported Topiramate 200 Mg Tablet 200 Mg PO HS PRN 04/20/15 Reported Promethazine Hcl 25 Mg Tablet 1 Tab PO PRN Q4HRS PRN 04/20/15 Reported Losartan Potassium 100 Mg Tablet 1 Tab PO DAILY 04/20/15 Reported Gabapentin 300 Mg Capsule 1 Cap PO BID 04/20/15 Reported Levothyroxine Sodium 75 Mcg Tablet 1 Tab PO DAILY 04/20/15 Reported [place] 10-325 Tablet (Acetaminophen/Hydrocodone Bitart) 1 Each Tablet 1-2 Tab PO Q4-6HRS 04/20/15 Reported Impression . 1. partial SBO 2. Bronchitis/Aspiration pneumonia 3. Morbid Obesity 4. Chronic Hypoxemic Respiratory Failure - home oxygen at 3.5 L nasal cannula. 5. suspected CANDACE/OHS 6. UTI klebsiella - res to Amp/Pip 12/02. Blood cult 12/02 - neg 7. RUE fracture about 7 weeks ago 8. DM Plan . 1. Continue supportive care 2. Abx per ID: - levofloxacin, Flagyl & Tigecycline 3. Influenza Neg 4. Continue bronchodilators. 5. Discussed evaluation for CANDACE, however refuses evaluation and would not wear NIPPV device. 6. Aspiration precautions - Keep head of the bed elevated to minimize any acid aspiration. 7. Management of small bowel obstruction per PCP and GI. 8. Weight loss was strongly emphasized to the patient. 9. Incentive spirometry. SARI DUMAS MD Dec 11, 2016 14:42
[2016-12-11 15:00] VITALS: BP 144/48
[2016-12-11 16:03] LABS: BASO % 0 % (0-3); EOS % 1 % (0-3); HEMATOCRIT 25.9 % (36.0-47.0); HEMOGLOBIN 7.9 g/dL (12.0-15.5); LYMPH # 2.3 x10^3/uL (1.0-4.8); LYMPH % 16 % (24-48); MEAN CORPUSCULAR HEMOGLOBIN 26 pg (25-35); MEAN CORPUSCULAR HGB CONC 31 g/dL (31-37); MEAN CORPUSCULAR VOLUME 85 fL (79-100); MONO % 9 % (0-9); NEUT % 75 % (31-73); PLATELET COUNT 456 x10^3/uL (140-400); RED BLOOD COUNT 3.06 x10^6/uL (3.50-5.40); RED CELL DISTRIBUTION WIDTH 17.9 % (11.5-14.5); WHITE BLOOD COUNT 14.6 x10^3/uL (4.0-11.0)
[2016-12-11] MEDS: OXYCODONE IR 5 MG TABLET. PO PRN (18:22)
[2016-12-11 19:59] VITALS: BP 148/50
--- NOTE | 2016-12-11 20:31 | PN ---
DATE: 12/11/2016 SUBJECTIVE: The patient is definitely more awake, alert. She continues tolerating her clear liquid diet. She said she had a bowel movement yesterday. Denied any nausea or vomiting. She is asking for pain medication and antianxiety. OBJECTIVE: GENERAL: When I examined her this afternoon, she looked well and was clearly in no apparent respiratory distress, pale, but no jaundice, cyanosis or thyromegaly. No jugular venous distention. No lower limb edema. VITAL SIGNS: Her heart rate was 101, blood pressure was 139/56, temperature was 98.2, respiratory rate was 18 and oxygen saturation was 90% on 2 liters of oxygen. HEAD, EYES, EARS, NOSE AND THROAT: Showed normocephalic, atraumatic. NECK: Supple. HEART: Showed normal first and second heart sounds with no gallop, rub or murmur. CHEST: Clear to auscultation. No crepitation or rhonchi. ABDOMEN: Distended, soft, nontender. No guarding or rigidity. No organomegaly. All hernial orifices were intact and bowel sounds were normal. NEUROLOGIC: Her intake over the last 24 hours was 1650 output was 625. LABORATORY DATA: This morning showed a serum sodium of 135, potassium 3.9, chloride 102, bicarbonate 22, anion gap of 11, BUN 16, creatinine 1, estimated GFR was 64 mL per minute, her glucose was 139 and calcium was 8. Her white cell count was 16,200, hemoglobin 8.1, hematocrit 26, MCV 83, and platelet count of 180,000. ASSESSMENT: 1. Small-bowel obstruction versus paralytic ileus. The patient stated she has passed flatus and she had bowel movement last night. Denied any nausea or vomiting today. 2. Pneumonia as well as urinary tract infection for which she continues to be on IV Flagyl, levofloxacin and tigecycline. 3. Morbid obesity, obstructive sleep apnea. 4. Type 2 diabetes mellitus, suboptimally controlled. PLAN: Continue with insulin sliding scale, continue with IV antibiotic, continue with clear liquid diet. We will advance her diet once surgical team recommends that. MICHELLE CRESOP MD DR: JARON/binta JOB#: [id number] / [id number]
[2016-12-11] MEDS: INSULIN DETEMIR 300 UNITS/3 ML INSULN.PEN. SQ SCH (21:42)
[2016-12-11 23:59] VITALS: BP 152/60
[2016-12-12] MEDS: OXYCODONE IR 5 MG TABLET. PO PRN ×2 (01:01→12:28)
[2016-12-12] MEDS: ONDANSETRON PF 4 MG/2 ML VIAL. IV PRN (02:15)
[2016-12-12 03:59] VITALS: BP 135/58
[2016-12-12] MEDS: METRONIDAZOLE 500mg PREMIX 100 ML IV SCH ×3 (06:00→22:33)
[2016-12-12 06:45] LABS: ALBUMIN 2.3 g/dL (3.4-5.0); ALBUMIN/GLOBULIN RATIO 0.7 (1.0-1.7); CALCIUM 7.5 mg/dL (8.5-10.1); CREATININE 0.9 mg/dL (0.6-1.0); GFR 61.5; POTASSIUM 3.7 mmol/L (3.5-5.1); TOTAL BILIRUBIN 0.4 mg/dL (0.2-1.0); TOTAL PROTEIN 5.8 g/dL (6.4-8.2)
[2016-12-12 06:55] LABS: BASO # 0.1 x10^3/uL (0.0-0.2); BASO % 0 % (0-3); EOS % 1 % (0-3); HEMATOCRIT 24.8 % (36.0-47.0); HEMOGLOBIN 7.7 g/dL (12.0-15.5); LYMPH % 11 % (24-48); MEAN CORPUSCULAR HEMOGLOBIN 26 pg (25-35); MEAN CORPUSCULAR HGB CONC 31 g/dL (31-37); MEAN CORPUSCULAR VOLUME 84 fL (79-100); MONO % 7 % (0-9); NEUT % 81 % (31-73); PLATELET COUNT 442 x10^3/uL (140-400); RED BLOOD COUNT 2.93 x10^6/uL (3.50-5.40); RED CELL DISTRIBUTION WIDTH 18.1 % (11.5-14.5); WHITE BLOOD COUNT 17.9 x10^3/uL (4.0-11.0)
[2016-12-12 07:00] VITALS: BP 99/50
[2016-12-12] MEDS: IPRATRPIUM/ALBUTEROL 0.5/2.5MG 3 ML NEBU. NEB SCH ×4 (07:32→18:00)
[2016-12-12] MEDS: LEVOTHYROXINE 75 MCG TABLET PO SCH (08:05)
[2016-12-12] MEDS: INSULIN ASPART 300 UNITS/3 ML INSULN.PEN SQ SCH ×4 (08:07→21:12)
[2016-12-12 08:08] LABS: PLT ESTIMATE ADEQUATE (ADEQUATE)
[2016-12-12] MEDS: NYSTATIN TOPICAL POWDER 15GM BOTTLE. TP SCH ×2 (09:48→21:00)
[2016-12-12] MEDS: TIGECYCLINE 50 MG in IV NORMAL SALINE 50ML 50 ML IV SCH ×2 (09:48→20:01)
[2016-12-12] MEDS: HEPARIN PF for SUB-Q USE 5,000 UNIT/0.5 ML VIAL. SQ SCH ×2 (09:53→20:08)
[2016-12-12] MEDS: IV DEXTROSE 5 %-0.45 % NACL 1,000 ML IV SCH (10:25)
[2016-12-12 11:00] VITALS: BP 155/61
--- NOTE | 2016-12-12 13:05 | PDOC ---
PULMONARY PROGRESS NOTES Subjective Afebrile, no overnight events. no sob, + cough, non-productive, no chest pain. + abd discomfort. + Nausea. Vitals Vital Signs Date Time Temp Pulse Resp B/P Pulse Ox O2 Delivery O2 Flow Rate FiO2 12/12/16 11:22 Nasal Cannula 3.0 12/12/16 11:00 97.2 76 22 155/61 97 97.2 ROS: No Nausea, No Chest Pain General: Alert, Oriented X4, No acute distress Lungs: Crackles, Other (decrease bs in bases ) Cardiovascular: S1, S2 Abdomen: Soft, Other (markedly obese) Neuro Exam: Alert, Oriented, Normal Speech Extremities: Other (+ edema) Skin: Warm, Dry Labs Laboratory Tests Test 12/10/16 17:16 12/10/16 21:07 12/11/16 07:54 12/11/16 10:35 Glucose (Fingerstick) 317mg/dL (70-99) 252mg/dL (70-99) 274mg/dL (70-99) Sodium Level 135mmol/L (136-145) Potassium Level 3.9mmol/L (3.5-5.1) Chloride Level 102mmol/L (98-107) Carbon Dioxide Level 22mmol/L (21-32) Anion Gap 11 (6-14) Blood Urea Nitrogen 16mg/dL (7-20) Creatinine 1.0mg/dL (0.6-1.0) Estimated GFR (Cockcroft-Gault) 54.5 Glucose Level 239mg/dL (70-99) Calcium Level 8.0mg/dL (8.5-10.1) Test 12/11/16 11:14 12/11/16 15:55 12/11/16 16:53 12/11/16 21:37 Glucose (Fingerstick) 238mg/dL (70-99) 241mg/dL (70-99) 196mg/dL (70-99) White Blood Count 14.6x10^3/uL (4.0-11.0) Red Blood Count 3.06x10^6/uL (3.50-5.40) Hemoglobin 7.9g/dL (12.0-15.5) Hematocrit 25.9% (36.0-47.0) Mean Corpuscular Volume 85fL (79-100) Mean Corpuscular Hemoglobin 26pg (25-35) Mean Corpuscular Hemoglobin Concent 31g/dL (31-37) Red Cell Distribution Width 17.9% (11.5-14.5) Platelet Count 456x10^3/uL (140-400) Neutrophils (%) (Auto) 75% (31-73) Lymphocytes (%) (Auto) 16% (24-48) Monocytes (%) (Auto) 9% (0-9) Eosinophils (%) (Auto) 1% (0-3) Basophils (%) (Auto) 0% (0-3) Neutrophils # (Auto) 10.9x10^3uL (1.8-7.7) Lymphocytes # (Auto) 2.3x10^3/uL (1.0-4.8) Monocytes # (Auto) 1.2x10^3/uL (0.0-1.1) Eosinophils # (Auto) 0.1x10^3/uL (0.0-0.7) Basophils # (Auto) 0.0x10^3/uL (0.0-0.2) Test 12/12/16 06:10 12/12/16 07:55 12/12/16 11:09 White Blood Count 17.9x10^3/uL (4.0-11.0) Red Blood Count 2.93x10^6/uL (3.50-5.40) Hemoglobin 7.7g/dL (12.0-15.5) Hematocrit 24.8% (36.0-47.0) Mean Corpuscular Volume 84fL (79-100) Mean Corpuscular Hemoglobin 26pg (25-35) Mean Corpuscular Hemoglobin Concent 31g/dL (31-37) Red Cell Distribution Width 18.1% (11.5-14.5) Platelet Count 442x10^3/uL (140-400) Neutrophils (%) (Auto) 81% (31-73) Lymphocytes (%) (Auto) 11% (24-48) Monocytes (%) (Auto) 7% (0-9) Eosinophils (%) (Auto) 1% (0-3) Basophils (%) (Auto) 0% (0-3) Neutrophils # (Auto) 14.5x10^3uL (1.8-7.7) Lymphocytes # (Auto) 2.0x10^3/uL (1.0-4.8) Monocytes # (Auto) 1.2x10^3/uL (0.0-1.1) Eosinophils # (Auto) 0.1x10^3/uL (0.0-0.7) Basophils # (Auto) 0.1x10^3/uL (0.0-0.2) Segmented Neutrophils % 87% (35-66) Band Neutrophils % 2% (0-9) Lymphocytes % 9% (24-48) Atypical Lymphocytes % (Manual) 1% (0-0) Monocytes % 1% (0-10) Platelet Estimate Adequate (ADEQUATE) Sodium Level 139mmol/L (136-145) Potassium Level 3.7mmol/L (3.5-5.1) Chloride Level 105mmol/L (98-107) Carbon Dioxide Level 25mmol/L (21-32) Anion Gap 9 (6-14) Blood Urea Nitrogen 13mg/dL (7-20) Creatinine 0.9mg/dL (0.6-1.0) Estimated GFR (Cockcroft-Gault) 61.5 BUN/Creatinine Ratio 14 (6-20) Glucose Level 238mg/dL (70-99) Calcium Level 7.5mg/dL (8.5-10.1) Total Bilirubin 0.4mg/dL (0.2-1.0) Aspartate Amino Transf (AST/SGOT) 13U/L (15-37) Alanine Aminotransferase (ALT/SGPT) 16U/L (14-59) Alkaline Phosphatase 95U/L (46-116) Total Protein 5.8g/dL (6.4-8.2) Albumin 2.3g/dL (3.4-5.0) Albumin/Globulin Ratio 0.7 (1.0-1.7) Glucose (Fingerstick) 227mg/dL (70-99) 193mg/dL (70-99) Laboratory Tests Test 12/11/16 15:55 12/11/16 16:53 12/11/16 21:37 12/12/16 06:10 White Blood Count 14.6x10^3/uL (4.0-11.0) 17.9x10^3/uL (4.0-11.0) Red Blood Count 3.06x10^6/uL (3.50-5.40) 2.93x10^6/uL (3.50-5.40) Hemoglobin 7.9g/dL (12.0-15.5) 7.7g/dL (12.0-15.5) Hematocrit 25.9% (36.0-47.0) 24.8% (36.0-47.0) Mean Corpuscular Volume 85fL (79-100) 84fL (79-100) Mean Corpuscular Hemoglobin 26pg (25-35) 26pg (25-35) Mean Corpuscular Hemoglobin Concent 31g/dL (31-37) 31g/dL (31-37) Red Cell Distribution Width 17.9% (11.5-14.5) 18.1% (11.5-14.5) Platelet Count 456x10^3/uL (140-400) 442x10^3/uL (140-400) Neutrophils (%) (Auto) 75% (31-73) 81% (31-73) Lymphocytes (%) (Auto) 16% (24-48) 11% (24-48) Monocytes (%) (Auto) 9% (0-9) 7% (0-9) Eosinophils (%) (Auto) 1% (0-3) 1% (0-3) Basophils (%) (Auto) 0% (0-3) 0% (0-3) Neutrophils # (Auto) 10.9x10^3uL (1.8-7.7) 14.5x10^3uL (1.8-7.7) Lymphocytes # (Auto) 2.3x10^3/uL (1.0-4.8) 2.0x10^3/uL (1.0-4.8) Monocytes # (Auto) 1.2x10^3/uL (0.0-1.1) 1.2x10^3/uL (0.0-1.1) Eosinophils # (Auto) 0.1x10^3/uL (0.0-0.7) 0.1x10^3/uL (0.0-0.7) Basophils # (Auto) 0.0x10^3/uL (0.0-0.2) 0.1x10^3/uL (0.0-0.2) Glucose (Fingerstick) 241mg/dL (70-99) 196mg/dL (70-99) Segmented Neutrophils % 87% (35-66) Band Neutrophils % 2% (0-9) Lymphocytes % 9% (24-48) Atypical Lymphocytes % (Manual) 1% (0-0) Monocytes % 1% (0-10) Platelet Estimate Adequate (ADEQUATE) Sodium Level 139mmol/L (136-145) Potassium Level 3.7mmol/L (3.5-5.1) Chloride Level 105mmol/L (98-107) Carbon Dioxide Level 25mmol/L (21-32) Anion Gap 9 (6-14) Blood Urea Nitrogen 13mg/dL (7-20) Creatinine 0.9mg/dL (0.6-1.0) Estimated GFR (Cockcroft-Gault) 61.5 BUN/Creatinine Ratio 14 (6-20) Glucose Level 238mg/dL (70-99) Calcium Level 7.5mg/dL (8.5-10.1) Total Bilirubin 0.4mg/dL (0.2-1.0) Aspartate Amino Transf (AST/SGOT) 13U/L (15-37) Alanine Aminotransferase (ALT/SGPT) 16U/L (14-59) Alkaline Phosphatase 95U/L (46-116) Total Protein 5.8g/dL (6.4-8.2) Albumin 2.3g/dL (3.4-5.0) Albumin/Globulin Ratio 0.7 (1.0-1.7) Test 12/12/16 07:55 12/12/16 11:09 Glucose (Fingerstick) 227mg/dL (70-99) 193mg/dL (70-99) Medications Active Scripts Medications Dose Route/Sig Days Date Category Mupirocin Ointment (Mupirocin) 22 Gm Oint...g. 1 Faheem TP TID 09/17/16 Reported Doxycycline Hyclate 100 Mg Capsule 100 Mg PO BID 09/17/16 Reported Oxybutynin Chloride 5 Mg Tablet 5 Mg PO HS 06/22/16 Reported Myrbetriq (Mirabegron) 50 Mg Tab.er.24h 50 Mg PO HS 06/22/16 Reported Melatonin 5 Mg Tablet 5 Mg PO HS 06/22/16 Reported Advair 250-50 Diskus (Fluticasone/Salmeterol) 1 Each Disk.w.dev 1 Inh IH BID 06/22/16 Reported Proair Hfa Inhaler (Albuterol Sulfate) 8.5 Gm Hfa.aer.ad 1 Puff INH PRN Q6HRS PRN 06/22/16 Reported Vitamin C (Ascorbic Acid) 500 Mg Tablet.er 500 Mg PO DAILY 06/22/16 Reported Zinc Lozenges (Vit A Acet/Vit C/Znox/Propolis) 1 Each Lozenge 1 Each PO DAILY 06/22/16 Reported Oxycodone Hcl 5 Mg Tablet 5 Mg PO Q4HRS PRN 06/22/16 Reported Humalog (Insulin Lispro) 100 Unit/1 Ml Insuln.pen 10 Unit SQ TIDAC 04/20/15 Reported Lantus (Insulin Glargine,Hum.rec.anlog) 100 Unit/1 Ml Vial 38 Unit SQ HS 04/20/15 Reported Alprazolam 1 Mg Tablet 0.5 Tab PO TID PRN 04/20/15 Reported Metformin Hcl 500 Mg Tablet 1 Tab PO BID 04/20/15 Reported Colace (Docusate Sodium) 100 Mg Capsule 1 Cap PO BID 04/20/15 Reported Rizatriptan (Rizatriptan Benzoate) 5 Mg Tablet 5 Mg PO DAILY PRN 04/20/15 Reported Topiramate 200 Mg Tablet 200 Mg PO HS PRN 04/20/15 Reported Promethazine Hcl 25 Mg Tablet 1 Tab PO PRN Q4HRS PRN 04/20/15 Reported Losartan Potassium 100 Mg Tablet 1 Tab PO DAILY 04/20/15 Reported Gabapentin 300 Mg Capsule 1 Cap PO BID 04/20/15 Reported Levothyroxine Sodium 75 Mcg Tablet 1 Tab PO DAILY 04/20/15 Reported [place] 10-325 Tablet (Acetaminophen/Hydrocodone Bitart) 1 Each Tablet 1-2 Tab PO Q4-6HRS 04/20/15 Reported Impression . 1. partial SBO 2. Bronchitis/Aspiration pneumonia 3. Morbid Obesity 4. Chronic Hypoxemic Respiratory Failure - home oxygen at 3.5 L nasal cannula. 5. suspected CANDACE/OHS 6. UTI klebsiella - res to Amp/Pip 12/02. Blood cult 12/02 - neg 7. RUE fracture about 7 weeks ago 8. DM Plan . 1. Continue supportive care 2. Abx per ID: - levofloxacin, Flagyl & Tigecycline 3. Influenza Neg 4. Continue bronchodilators. 5. Discussed evaluation for CANDACE, however refuses evaluation and would not wear NIPPV device. 6. Aspiration precautions - Keep head of the bed elevated to minimize any acid aspiration. 7. Management of small bowel obstruction per PCP and GI. 8. Weight loss was strongly emphasized to the patient. 9. Incentive spirometry. 10. gentle Diuresis SARI DUMAS MD Dec 12, 2016 13:04
[2016-12-12] MEDS ORDERED: FUROSEMIDE 20 MG/2 ML VIAL IVP ONE (13:15)
[2016-12-12] MEDS: HYDROMORPHONE 2 MG/ML VIAL. IV PRN ×2 (14:26→20:01)
[2016-12-12 15:00] VITALS: BP 118/64
--- NOTE | 2016-12-12 15:05 | PDOC ---
PROGRESS NOTES Subjective Subjective feels well, states she's passing gas and had stool Objective Objective Vital Signs Date Time Temp Pulse Resp B/P Pulse Ox O2 Delivery O2 Flow Rate FiO2 12/12/16 11:22 Nasal Cannula 3.0 12/12/16 11:00 97.2 76 22 155/61 97 97.2 Intake and Output 12/12/16 07:00 Intake Total 2510 ml Output Total 1300 ml Balance 1210 ml Intake Oral 1360 ml IV Total 1150 ml Output Urine Total 1300 ml # Voids 2 # Bowel Movements 1 Physical Exam Abdomen: No tenderness Heart: Regular rate General: Alert, Oriented X3, Cooperative Psych/Mental Status: Mental status NL Assessment Assessment Clinical improvement Plan Plan of Care Continue liquids for now Comment Review of Relevant I have reviewed the following items leif (where applicable) has been applied. Labs Laboratory Tests Test 12/10/16 17:16 12/10/16 21:07 12/11/16 07:54 12/11/16 10:35 Glucose (Fingerstick) 317mg/dL (70-99) 252mg/dL (70-99) 274mg/dL (70-99) Sodium Level 135mmol/L (136-145) Potassium Level 3.9mmol/L (3.5-5.1) Chloride Level 102mmol/L (98-107) Carbon Dioxide Level 22mmol/L (21-32) Anion Gap 11 (6-14) Blood Urea Nitrogen 16mg/dL (7-20) Creatinine 1.0mg/dL (0.6-1.0) Estimated GFR (Cockcroft-Gault) 54.5 Glucose Level 239mg/dL (70-99) Calcium Level 8.0mg/dL (8.5-10.1) Test 12/11/16 11:14 12/11/16 15:55 12/11/16 16:53 12/11/16 21:37 Glucose (Fingerstick) 238mg/dL (70-99) 241mg/dL (70-99) 196mg/dL (70-99) White Blood Count 14.6x10^3/uL (4.0-11.0) Red Blood Count 3.06x10^6/uL (3.50-5.40) Hemoglobin 7.9g/dL (12.0-15.5) Hematocrit 25.9% (36.0-47.0) Mean Corpuscular Volume 85fL (79-100) Mean Corpuscular Hemoglobin 26pg (25-35) Mean Corpuscular Hemoglobin Concent 31g/dL (31-37) Red Cell Distribution Width 17.9% (11.5-14.5) Platelet Count 456x10^3/uL (140-400) Neutrophils (%) (Auto) 75% (31-73) Lymphocytes (%) (Auto) 16% (24-48) Monocytes (%) (Auto) 9% (0-9) Eosinophils (%) (Auto) 1% (0-3) Basophils (%) (Auto) 0% (0-3) Neutrophils # (Auto) 10.9x10^3uL (1.8-7.7) Lymphocytes # (Auto) 2.3x10^3/uL (1.0-4.8) Monocytes # (Auto) 1.2x10^3/uL (0.0-1.1) Eosinophils # (Auto) 0.1x10^3/uL (0.0-0.7) Basophils # (Auto) 0.0x10^3/uL (0.0-0.2) Test 12/12/16 06:10 12/12/16 07:55 12/12/16 11:09 White Blood Count 17.9x10^3/uL (4.0-11.0) Red Blood Count 2.93x10^6/uL (3.50-5.40) Hemoglobin 7.7g/dL (12.0-15.5) Hematocrit 24.8% (36.0-47.0) Mean Corpuscular Volume 84fL (79-100) Mean Corpuscular Hemoglobin 26pg (25-35) Mean Corpuscular Hemoglobin Concent 31g/dL (31-37) Red Cell Distribution Width 18.1% (11.5-14.5) Platelet Count 442x10^3/uL (140-400) Neutrophils (%) (Auto) 81% (31-73) Lymphocytes (%) (Auto) 11% (24-48) Monocytes (%) (Auto) 7% (0-9) Eosinophils (%) (Auto) 1% (0-3) Basophils (%) (Auto) 0% (0-3) Neutrophils # (Auto) 14.5x10^3uL (1.8-7.7) Lymphocytes # (Auto) 2.0x10^3/uL (1.0-4.8) Monocytes # (Auto) 1.2x10^3/uL (0.0-1.1) Eosinophils # (Auto) 0.1x10^3/uL (0.0-0.7) Basophils # (Auto) 0.1x10^3/uL (0.0-0.2) Segmented Neutrophils % 87% (35-66) Band Neutrophils % 2% (0-9) Lymphocytes % 9% (24-48) Atypical Lymphocytes % (Manual) 1% (0-0) Monocytes % 1% (0-10) Platelet Estimate Adequate (ADEQUATE) Sodium Level 139mmol/L (136-145) Potassium Level 3.7mmol/L (3.5-5.1) Chloride Level 105mmol/L (98-107) Carbon Dioxide Level 25mmol/L (21-32) Anion Gap 9 (6-14) Blood Urea Nitrogen 13mg/dL (7-20) Creatinine 0.9mg/dL (0.6-1.0) Estimated GFR (Cockcroft-Gault) 61.5 BUN/Creatinine Ratio 14 (6-20) Glucose Level 238mg/dL (70-99) Calcium Level 7.5mg/dL (8.5-10.1) Total Bilirubin 0.4mg/dL (0.2-1.0) Aspartate Amino Transf (AST/SGOT) 13U/L (15-37) Alanine Aminotransferase (ALT/SGPT) 16U/L (14-59) Alkaline Phosphatase 95U/L (46-116) Total Protein 5.8g/dL (6.4-8.2) Albumin 2.3g/dL (3.4-5.0) Albumin/Globulin Ratio 0.7 (1.0-1.7) Glucose (Fingerstick) 227mg/dL (70-99) 193mg/dL (70-99) Laboratory Tests Test 12/11/16 15:55 12/11/16 16:53 12/11/16 21:37 12/12/16 06:10 White Blood Count 14.6x10^3/uL (4.0-11.0) 17.9x10^3/uL (4.0-11.0) Red Blood Count 3.06x10^6/uL (3.50-5.40) 2.93x10^6/uL (3.50-5.40) Hemoglobin 7.9g/dL (12.0-15.5) 7.7g/dL (12.0-15.5) Hematocrit 25.9% (36.0-47.0) 24.8% (36.0-47.0) Mean Corpuscular Volume 85fL (79-100) 84fL (79-100) Mean Corpuscular Hemoglobin 26pg (25-35) 26pg (25-35) Mean Corpuscular Hemoglobin Concent 31g/dL (31-37) 31g/dL (31-37) Red Cell Distribution Width 17.9% (11.5-14.5) 18.1% (11.5-14.5) Platelet Count 456x10^3/uL (140-400) 442x10^3/uL (140-400) Neutrophils (%) (Auto) 75% (31-73) 81% (31-73) Lymphocytes (%) (Auto) 16% (24-48) 11% (24-48) Monocytes (%) (Auto) 9% (0-9) 7% (0-9) Eosinophils (%) (Auto) 1% (0-3) 1% (0-3) Basophils (%) (Auto) 0% (0-3) 0% (0-3) Neutrophils # (Auto) 10.9x10^3uL (1.8-7.7) 14.5x10^3uL (1.8-7.7) Lymphocytes # (Auto) 2.3x10^3/uL (1.0-4.8) 2.0x10^3/uL (1.0-4.8) Monocytes # (Auto) 1.2x10^3/uL (0.0-1.1) 1.2x10^3/uL (0.0-1.1) Eosinophils # (Auto) 0.1x10^3/uL (0.0-0.7) 0.1x10^3/uL (0.0-0.7) Basophils # (Auto) 0.0x10^3/uL (0.0-0.2) 0.1x10^3/uL (0.0-0.2) Glucose (Fingerstick) 241mg/dL (70-99) 196mg/dL (70-99) Segmented Neutrophils % 87% (35-66) Band Neutrophils % 2% (0-9) Lymphocytes % 9% (24-48) Atypical Lymphocytes % (Manual) 1% (0-0) Monocytes % 1% (0-10) Platelet Estimate Adequate (ADEQUATE) Sodium Level 139mmol/L (136-145) Potassium Level 3.7mmol/L (3.5-5.1) Chloride Level 105mmol/L (98-107) Carbon Dioxide Level 25mmol/L (21-32) Anion Gap 9 (6-14) Blood Urea Nitrogen 13mg/dL (7-20) Creatinine 0.9mg/dL (0.6-1.0) Estimated GFR (Cockcroft-Gault) 61.5 BUN/Creatinine Ratio 14 (6-20) Glucose Level 238mg/dL (70-99) Calcium Level 7.5mg/dL (8.5-10.1) Total Bilirubin 0.4mg/dL (0.2-1.0) Aspartate Amino Transf (AST/SGOT) 13U/L (15-37) Alanine Aminotransferase (ALT/SGPT) 16U/L (14-59) Alkaline Phosphatase 95U/L (46-116) Total Protein 5.8g/dL (6.4-8.2) Albumin 2.3g/dL (3.4-5.0) Albumin/Globulin Ratio 0.7 (1.0-1.7) Test 12/12/16 07:55 12/12/16 11:09 Glucose (Fingerstick) 227mg/dL (70-99) 193mg/dL (70-99) Medications Current Medications Dextrose/Sodium Chloride (Iv D5% - 1/2 NS) 1,000 ml @ 75 mls/hr [id number] IV Last administered on 12/11/16t 13:37; Start 12/07/16 at 23:45; Stop 12/12/16 at 10:43; Status DC Acetaminophen (Tylenol) 650 mg PRN Q4HRS PRN [place] MILD PAIN / TEMP; Start at 23:30 Insulin Aspart (Novolog) 0-5 UNITS Q6H SQ ; Start 12/08/16 at 00:00; Stop at 00:00; Status DC Dextrose 12.5 gm 12.5 gm PRN Q15MIN PRN IV SEE COMMENTS; Start 12/07/16 at 23: 30; Stop 12/09/16 at 16:21; Status DC Metronidazole (FLAGYL 500Mmg PREMIX) 100 ml @ 100 mls/hr Q8HRS IV Last administered on 12/12/16 14:01; Start 12/08/16 at 00:00 Fentanyl Citrate (Fentanyl 2ml Vial) 50 mcg PRN Q3HRS PRN IV PAIN Last administered on 12/09/16 09:41; Start 12/07/16 at 23:30; Stop 12/09/16 at 10:29 ; Status DC Insulin Aspart (Novolog) 0-7 UNITS Q6HRS SQ Last administered on 12/09/16 12: 09; Start 12/08/16 at 00:00; Stop 12/09/16 at 16:21; Status DC Albuterol Sulfate (Ventolin Neb Soln) 2.5 mg PRN QID PRN NEB SHORTNESS OF BREATH; Start 12/08/16 at 00:00 Bisacodyl (Dulcolax Supp) 10 mg PRN DAILY PRN [place] CONSTIPATION Last administered on 12/08/16 09:45; Start 12/08/16 at 00:00 Heparin Sodium (Porcine) 5,000 unit Q12HR SQ Last administered on 12/12/16 09: 53; Start 12/08/16 at 09:00 Albuterol/ Ipratropium 3 ml 3 ml RTQID NEB Last administered on 12/12/16 11:22 ; Start 12/08/16 at 08:00 Levofloxacin/ Dextrose (LEVAQUIN 750mg PREMIX) 150 ml @ 100 mls/hr Q24H IV Last administered on 12/11/16 17:18; Start 12/08/16 at 17:00 Nystatin (Nystop) 1 faheem BID TP Last administered on 12/12/16 09:48; Start at 09:00 Ondansetron HCl (Zofran) 4 mg PRN Q6HRS PRN IV NAUSEA/VOMITING Last administered on 12/12/16 02:15; Start 12/08/16 at 00:00 Info (Do NOT chart on this placeholder) 1 each 1X ONCE MC ; Start 12/08/16 at 09:00; Stop 12/08/16 at 09:01; Status UNV Influenza Virus Vaccine Quadrival (Fluarix Quad [id number] Syringe) 0.5 ml ONCE ONCE VAX IM Last administered on 12/08/16 09:45; Start 12/08/16 at 09:00; Stop 12/08/16 at 09:01; Status DC Lidocaine/Sodium Bicarbonate (Buffered Lidocaine 1%) 3 ml 1X ONCE IJ ; Start at 14:15; Stop 12/08/16 at 14:17; Status DC Heparin Sodium/ Sodium Chloride 60 unit 1X ONCE IV ; Start 12/08/16 at 14:15; Stop 12/08/16 at 14:17; Status DC Heparin Sodium/ Sodium Chloride 1,000 unit 1X ONCE IART Last administered on 14:30; Start 12/08/16 at 14:30; Stop 12/08/16 at 14:34; Status DC Lidocaine/Sodium Bicarbonate (Buffered Lidocaine 1%) 20 ml 1X ONCE IJ Last administered on 12/08/16 14:30; Start 12/08/16 at 14:30; Stop 12/08/16 at 14:34 ; Status DC Iodixanol (Visipaque 320) 50 ml STK-MED ONCE .ROUTE ; Start 12/08/16 at 14:53; Stop 12/08/16 at 14:54; Status DC Iodixanol (Visipaque 320) 16 ml 1X ONCE IV Last administered on 12/08/16 15: 41; Start 12/08/16 at 15:45; Stop 12/08/16 at 15:46; Status DC Heparin Sodium (Porcine) (Hep Lock Adult) 500 unit STK-MED ONCE IV ; Start 12/08 at 15:42; Stop 12/08/16 at 15:43; Status DC Heparin Sodium (Porcine) 500 unit 500 unit 1X ONCE IV Last administered on 15:48; Start 12/08/16 at 16:00; Stop 12/08/16 at 16:01; Status DC Tigecycline 100 mg/Sodium Chloride 100 ml @ 200 mls/hr 1X ONCE IV Last administered on 12/09/16 10:54; Start 12/09/16 at 10:30; Stop 12/09/16 at 10:59 ; Status DC Tigecycline/ Sodium Chloride (Tygacil/Iv Sodium Chloride 0.9% 50ml) 50 ml @ 100 mls/hr Q12HR IV Last administered on 12/12/16 09:48; Start 12/09/16 at 21: 00 Hydromorphone HCl (Dilaudid) 1 mg PRN Q3HRS PRN IV PAIN Last administered on 14:26; Start 12/09/16 at 10:30 Guaifenesin (Robitussin Dm) 10 ml PRN Q6HRS PRN PO COUGH Last administered on 17:19; Start 12/09/16 at 12:45 Insulin Aspart (Novolog) 0-9 UNITS TIDWMEALS SQ Last administered on 12/10/16 12:11; Start 12/09/16 at 17:00; Stop 12/10/16 at 14:17; Status DC Dextrose 12.5 gm PRN Q15MIN PRN IV SEE COMMENTS; Start 12/09/16 at 16:30; Stop 12/10/16 at 14:16; Status DC Insulin Detemir (Levemir) 10 units QHS SQ Last administered on 12/10/16 21:09 ; Start 12/10/16 at 21:00; Stop 12/11/16 at 12:18; Status DC Insulin Aspart (Novolog) 0-9 UNITS Q6H SQ ; Start 12/10/16 at 10:15; Stop at 14:17; Status DC Dextrose 12.5 gm PRN Q15MIN PRN IV SEE COMMENTS; Start 12/10/16 at 10:15 Insulin Aspart (Novolog) 0-9 UNITS Q6HRS SQ Last administered on 12/11/16 12: 14; Start 12/10/16 at 18:00; Stop 12/11/16 at 17:08; Status DC Insulin Detemir (Levemir) 20 units QHS SQ Last administered on 12/11/16 21:42 ; Start 12/11/16 at 21:00 Alprazolam (Xanax) 1 mg PRN TID PRN PO ANXIETY / AGITATION Last administered on 12/11/16 21:39; Start 12/11/16 at 12:30 Levothyroxine Sodium (Synthroid) 75 mcg DAILY07 PO Last administered on 08:05; Start 12/12/16 at 07:00 Oxycodone HCl (Roxicodone) 5 mg PRN Q4HRS PRN PO PAIN Last administered on 12/12 01:01; Start 12/11/16 at 12:30 Insulin Aspart (Novolog) 0-9 UNITS QIDACHS SQ Last administered on 12/12/16 12 :00; Start 12/11/16 at 17:07 Furosemide (Lasix) 40 mg 1X ONCE IVP Last administered on 12/12/16 14:00; Start 12/12/16 at 13:15; Stop 12/12/16 at 13:16; Status DC Active Scripts Active Reported Mupirocin Ointment (Mupirocin) 22 Gm Oint...g. 1 Faheem TP TID Doxycycline Hyclate 100 Mg Capsule 100 Mg PO BID Oxybutynin Chloride 5 Mg Tablet 5 Mg PO HS Myrbetriq (Mirabegron) 50 Mg Tab.er.24h 50 Mg PO HS Melatonin 5 Mg Tablet 5 Mg PO HS Advair 250-50 Diskus (Fluticasone/Salmeterol) 1 Each Disk.w.dev 1 Inh IH BID Proair Hfa Inhaler (Albuterol Sulfate) 8.5 Gm Hfa.aer.ad 1 Puff INH PRN Q6HRS PRN Vitamin C (Ascorbic Acid) 500 Mg Tablet.er 500 Mg PO DAILY Zinc Lozenges (Vit A Acet/Vit C/Znox/Propolis) 1 Each Lozenge 1 Each PO DAILY Oxycodone Hcl 5 Mg Tablet 5 Mg PO Q4HRS PRN Humalog (Insulin Lispro) 100 Unit/1 Ml Insuln.pen 10 Unit SQ TIDAC Lantus (Insulin Glargine,Hum.rec.anlog) 100 Unit/1 Ml Vial 38 Unit SQ HS Alprazolam 1 Mg Tablet 0.5 Tab PO TID PRN Metformin Hcl 500 Mg Tablet 1 Tab PO BID Colace (Docusate Sodium) 100 Mg Capsule 1 Cap PO BID Rizatriptan (Rizatriptan Benzoate) 5 Mg Tablet 5 Mg PO DAILY PRN Topiramate 200 Mg Tablet 200 Mg PO HS PRN Promethazine Hcl 25 Mg Tablet 1 Tab PO PRN Q4HRS PRN Losartan Potassium 100 Mg Tablet 1 Tab PO DAILY Gabapentin 300 Mg Capsule 1 Cap PO BID Levothyroxine Sodium 75 Mcg Tablet 1 Tab PO DAILY Dennison 10-325 Tablet (Acetaminophen/Hydrocodone Bitart) 1 Each Tablet 1-2 Tab PO Q4-6HRS Vitals/I & O Vital Sign - Last 24 Hours 12/11/16 12/11/16 12/11/16 12/11/16 15:15 18:37 19:59 20:00 Temp 97.7 97.7 Pulse 99 Resp 18 B/P 148/50 Pulse Ox 96 O2 Delivery Nasal Cannula Nasal Cannula Nasal Cannula Nasal Cannula O2 Flow Rate 3.5 3.5 3.0 3.5 12/11/16 12/11/16 12/11/16 12/12/16 20:16 21:00 23:59 01:01 Temp 98.1 98.1 Pulse 104 Resp 20 20 18 20 B/P 152/60 Pulse Ox 98 100 100 100 O2 Delivery Nasal Cannula Nasal Cannula Nasal Cannula Nasal Cannula O2 Flow Rate 3.5 3.5 3.0 3.5 12/12/16 12/12/16 12/12/16 12/12/16 02:00 03:59 07:00 07:33 Temp 98.5 97.5 98.5 97.5 Pulse 96 62 Resp 19 18 24 B/P 135/58 99/50 Pulse Ox 100 100 95 100 O2 Delivery Nasal Cannula Nasal Cannula Nasal Cannula Nasal Cannula O2 Flow Rate 3.5 3.0 3.5 12/12/16 12/12/16 12/12/16 08:00 11:00 11:22 Temp 97.2 97.2 Pulse 76 Resp 22 B/P 155/61 Pulse Ox 97 O2 Delivery Nasal Cannula Nasal Cannula Nasal Cannula O2 Flow Rate 3.5 2.0 3.0 Intake and Output 12/11/16 12/11/16 12/12/16 15:00 23:00 07:00 Intake Total 2170 ml 240 ml 100 ml Output Total 400 ml 500 ml 400 ml Balance 1770 ml -260 ml -300 ml ZA ISABEL MD Dec 12, 2016 15:05
--- NOTE | 2016-12-12 17:07 | PDOC ---
Infectious Disease Note Subjective Subjective c/o ABDOMINAL PAIN and cold feet. She is anxious and wants her xanax. No diarrhoea ROS ROS GEN: Denies fevers, chills, sweats HEENT: Denies blurred vision, sore throat CV: Denies chest pain RESP: Denies shortness of air, cough GI: Denies n/v/d NEURO: Denies confusion, dizziness MSK: Denies weakness, joint pain/swelling Vital Sign Vital Signs Vital Signs Date Time Temp Pulse Resp B/P Pulse Ox O2 Delivery O2 Flow Rate FiO2 12/12/16 15:15 Nasal Cannula 3.0 12/12/16 11:00 97.2 76 22 155/61 97 97.2 Physical Exam PHYSICAL EXAM GENERAL: NAD, Alert HEENT: PERRL, OC/OP, Nasal cannula in place NECK: Supple, no JVD, no LN LUNGS: Clear HEART: S1S2, no gallop, no murmur ABD: Soft, Obese, Tender epigatrium, no organomegaly, no rebound EXT: No edema, no cyanosis 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 Bilateral venous stasis changes Lower ext. Labs Lab Laboratory Tests Test 12/11/16 21:37 12/12/16 06:10 12/12/16 07:55 12/12/16 11:09 Glucose (Fingerstick) 196mg/dL (70-99) 227mg/dL (70-99) 193mg/dL (70-99) White Blood Count 17.9x10^3/uL (4.0-11.0) Red Blood Count 2.93x10^6/uL (3.50-5.40) Hemoglobin 7.7g/dL (12.0-15.5) Hematocrit 24.8% (36.0-47.0) Mean Corpuscular Volume 84fL (79-100) Mean Corpuscular Hemoglobin 26pg (25-35) Mean Corpuscular Hemoglobin Concent 31g/dL (31-37) Red Cell Distribution Width 18.1% (11.5-14.5) Platelet Count 442x10^3/uL (140-400) Neutrophils (%) (Auto) 81% (31-73) Lymphocytes (%) (Auto) 11% (24-48) Monocytes (%) (Auto) 7% (0-9) Eosinophils (%) (Auto) 1% (0-3) Basophils (%) (Auto) 0% (0-3) Neutrophils # (Auto) 14.5x10^3uL (1.8-7.7) Lymphocytes # (Auto) 2.0x10^3/uL (1.0-4.8) Monocytes # (Auto) 1.2x10^3/uL (0.0-1.1) Eosinophils # (Auto) 0.1x10^3/uL (0.0-0.7) Basophils # (Auto) 0.1x10^3/uL (0.0-0.2) Segmented Neutrophils % 87% (35-66) Band Neutrophils % 2% (0-9) Lymphocytes % 9% (24-48) Atypical Lymphocytes % (Manual) 1% (0-0) Monocytes % 1% (0-10) Platelet Estimate Adequate (ADEQUATE) Sodium Level 139mmol/L (136-145) Potassium Level 3.7mmol/L (3.5-5.1) Chloride Level 105mmol/L (98-107) Carbon Dioxide Level 25mmol/L (21-32) Anion Gap 9 (6-14) Blood Urea Nitrogen 13mg/dL (7-20) Creatinine 0.9mg/dL (0.6-1.0) Estimated GFR (Cockcroft-Gault) 61.5 BUN/Creatinine Ratio 14 (6-20) Glucose Level 238mg/dL (70-99) Calcium Level 7.5mg/dL (8.5-10.1) Total Bilirubin 0.4mg/dL (0.2-1.0) Aspartate Amino Transf (AST/SGOT) 13U/L (15-37) Alanine Aminotransferase (ALT/SGPT) 16U/L (14-59) Alkaline Phosphatase 95U/L (46-116) Total Protein 5.8g/dL (6.4-8.2) Albumin 2.3g/dL (3.4-5.0) Albumin/Globulin Ratio 0.7 (1.0-1.7) Objective Assessment Assessment Partial SBO Increasing WBC- afebrile Multiple abx allergies - Amox/Cephalexin/sulfa rash - tolerated Biaxin H/O Aspiration UTI klebsiella - res to Amp/Pip 12/02. Blood cult 12/02 - neg RUE fracture about 7 weeks ago DM Morbid obesity Plan Plan of Care Cont levofloxacin, Flagyl & Tigecycline (12/09) for now - Patient ill need BC/abdominal CT if febrile. Order CXR FIGUEROA URIOSTEGUI MD Dec 12, 2016 17:07
[2016-12-12] MEDS: ALPRAZOLAM 1 MG TABLET PO PRN (17:38)
[2016-12-12 19:00] VITALS: BP 143/53
--- NOTE | 2016-12-12 21:05 | PN ---
DATE: 12/12/2016 SUBJECTIVE: The patient is resting slightly propped up in her recliner, sleeping comfortably. On questioning her she said that she had 2 bowel movements yesterday. She is passing plenty of gas. Denied any nausea or vomiting. OBJECTIVE: PHYSICAL EXAMINATION: GENERAL: When I examined her, she looked well, slightly pale, but no jaundice, cyanosis, or thyromegaly. No jugular venous distension. No limb edema. VITAL SIGNS: Her heart rate was 62, blood pressure was 99/50, temperature 97.5, respiratory rate was 24, and oxygen saturation was 100% on 3.5 liters of oxygen. HEAD, EYES, EARS, NOSE AND THROAT: Showed normocephalic, atraumatic. NECK: Supple. HEART: Showed normal first and second heart sounds. No gallop, rub or murmur. CHEST: Clear to auscultation. No crepitation or rhonchi. ABDOMEN: Distended, soft. No tenderness. No guarding or rigidity. Bowel sounds are normal. NEUROLOGIC: She was sleepy, but arousable. All cranial nerves intact. She moves left upper extremity without difficulty. Her right upper extremity is in a sling as she broke her right humerus about 7 weeks ago. She is mostly chair bound, however, she is able to walk with a walker with assistance. Her intake over the last 24 hours was 2500, output was 1300. LABORATORY DATA: As of this morning showed a serum sodium 139, potassium 3.7, chloride 105, bicarbonate 25, anion gap of 9, BUN 13, creatinine 0.9, estimated GFR was 61 mL per minute. Her glucose was 238. Calcium was 7.5. Total bilirubin, AST, ALT, alkaline phosphatase were normal. Her total protein was 5.8, albumin 2.3. Her white cell count is slightly higher at 17.9, hemoglobin was 7.7, hematocrit was 25, and platelet count of 442,000 with a manual differential ____ polymorphs, 11% lymphocytes, 7% monocytes. ASSESSMENT: 1. Small-bowel obstruction versus ____, improving. The patient states that she had 2 bowel movements last night and passed lots of gas today, she denied any nausea, vomiting. 2. Pneumonia as well as urinary tract infection for which she continues to be on IV Flagyl, levofloxacin, tigecycline. 3. Morbid obesity, obstructive sleep apnea. 4. Type 2 diabetes mellitus, suboptimally controlled. 5. Right humeral fracture, currently in a sling. 6. She has chronic bilateral venous stasis ulcer. PLAN: I will discontinue the IV fluid. Await evaluation by the surgical team to see if we can advance her diet. Meanwhile, continue with IV antibiotic. Continue to monitor her blood sugar and adjust insulin as needed. MICHELLE CRESPO MD DR: JARON/binta JOB#: [id number] / [id number]
[2016-12-12] MEDS: INSULIN DETEMIR 300 UNITS/3 ML INSULN.PEN. SQ SCH (21:11)
[2016-12-12 22:43] VITALS: BP 128/40
[2016-12-13 02:46] VITALS: BP 103/65
[2016-12-13] MEDS: OXYCODONE IR 5 MG TABLET. PO PRN ×2 (04:14→19:40)
[2016-12-13 05:18] LABS: BASO % 0 % (0-3); EOS % 1 % (0-3); HEMATOCRIT 24.9 % (36.0-47.0); LYMPH # 2.1 x10^3/uL (1.0-4.8); LYMPH % 16 % (24-48); MEAN CORPUSCULAR HEMOGLOBIN 26 pg (25-35); MEAN CORPUSCULAR HGB CONC 32 g/dL (31-37); MEAN CORPUSCULAR VOLUME 82 fL (79-100); MONO % 10 % (0-9); NEUT % 73 % (31-73); PLATELET COUNT 469 x10^3/uL (140-400); RED BLOOD COUNT 3.03 x10^6/uL (3.50-5.40); RED CELL DISTRIBUTION WIDTH 18.3 % (11.5-14.5); WHITE BLOOD COUNT 13.2 x10^3/uL (4.0-11.0)
[2016-12-13] MEDS: METRONIDAZOLE 500mg PREMIX 100 ML IV SCH (05:32)
[2016-12-13 06:18] LABS: ALBUMIN 2.2 g/dL (3.4-5.0); ALBUMIN/GLOBULIN RATIO 0.7 (1.0-1.7); CALCIUM 7.4 mg/dL (8.5-10.1); CREATININE 0.9 mg/dL (0.6-1.0); GFR 61.5; POTASSIUM 3.2 mmol/L (3.5-5.1); TOTAL BILIRUBIN 0.4 mg/dL (0.2-1.0); TOTAL PROTEIN 5.5 g/dL (6.4-8.2)
[2016-12-13 07:32] VITALS: BP 152/63
[2016-12-13] MEDS: LEVOTHYROXINE 75 MCG TABLET PO SCH (08:12)
[2016-12-13] MEDS: HYDROMORPHONE 2 MG/ML VIAL. IV PRN ×4 (08:13→21:45)
[2016-12-13] MEDS: HEPARIN PF for SUB-Q USE 5,000 UNIT/0.5 ML VIAL. SQ SCH ×2 (08:14→21:35)
[2016-12-13] MEDS: INSULIN ASPART 300 UNITS/3 ML INSULN.PEN SQ SCH ×4 (08:15→21:39)
[2016-12-13] MEDS: IPRATRPIUM/ALBUTEROL 0.5/2.5MG 3 ML NEBU. NEB SCH ×4 (08:26→19:44)
[2016-12-13] MEDS: NYSTATIN TOPICAL POWDER 15GM BOTTLE. TP SCH ×2 (08:59→21:00)
[2016-12-13] MEDS: TIGECYCLINE 50 MG in IV NORMAL SALINE 50ML 50 ML IV SCH ×2 (08:59→21:04)
--- NOTE | 2016-12-13 10:19 | PDOC ---
Infectious Disease Note Subjective Subjective Better. + BM. eating some. No diarrhea Less SOA Congestion is better ROS ROS GEN: Denies fevers, chills, sweats HEENT: Denies blurred vision, sore throat CV: Denies chest pain RESP: Denies shortness of air, cough GI: Denies n/v/d NEURO: Denies confusion, dizziness MSK: Denies weakness, joint pain/swelling Vital Sign Vital Signs Vital Signs Date Time Temp Pulse Resp B/P Pulse Ox O2 Delivery O2 Flow Rate FiO2 12/13/16 08:48 100 Nasal Cannula 3.0 12/13/16 07:32 97.9 87 16 152/63 97.9 Physical Exam PHYSICAL EXAM GENERAL: NAD, Alert, in chair. Obese HEENT: PERRL, OC/OP -clear NECK: Supple, no JVD, no LN LUNGS: Clear HEART: S1S2, no gallop, no murmur ABD: Soft, NT, no organomegaly, no rebound EXT: 1 plus edema, no cyanosis. 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, no focal neurologic deficit SKIN: No rash IV: Left chest clean Labs Lab Laboratory Tests Test 12/12/16 11:09 12/12/16 17:14 12/12/16 21:00 12/13/16 04:59 Glucose (Fingerstick) 193mg/dL (70-99) 191mg/dL (70-99) 267mg/dL (70-99) White Blood Count 13.2x10^3/uL (4.0-11.0) Red Blood Count 3.03x10^6/uL (3.50-5.40) Hemoglobin 8.0g/dL (12.0-15.5) Hematocrit 24.9% (36.0-47.0) Mean Corpuscular Volume 82fL (79-100) Mean Corpuscular Hemoglobin 26pg (25-35) Mean Corpuscular Hemoglobin Concent 32g/dL (31-37) Red Cell Distribution Width 18.3% (11.5-14.5) Platelet Count 469x10^3/uL (140-400) Neutrophils (%) (Auto) 73% (31-73) Lymphocytes (%) (Auto) 16% (24-48) Monocytes (%) (Auto) 10% (0-9) Eosinophils (%) (Auto) 1% (0-3) Basophils (%) (Auto) 0% (0-3) Neutrophils # (Auto) 9.7x10^3uL (1.8-7.7) Lymphocytes # (Auto) 2.1x10^3/uL (1.0-4.8) Monocytes # (Auto) 1.3x10^3/uL (0.0-1.1) Eosinophils # (Auto) 0.1x10^3/uL (0.0-0.7) Basophils # (Auto) 0.0x10^3/uL (0.0-0.2) Sodium Level 141mmol/L (136-145) Potassium Level 3.2mmol/L (3.5-5.1) Chloride Level 107mmol/L (98-107) Carbon Dioxide Level 26mmol/L (21-32) Anion Gap 8 (6-14) Blood Urea Nitrogen 13mg/dL (7-20) Creatinine 0.9mg/dL (0.6-1.0) Estimated GFR (Cockcroft-Gault) 61.5 BUN/Creatinine Ratio 14 (6-20) Glucose Level 204mg/dL (70-99) Calcium Level 7.4mg/dL (8.5-10.1) Total Bilirubin 0.4mg/dL (0.2-1.0) Aspartate Amino Transf (AST/SGOT) 13U/L (15-37) Alanine Aminotransferase (ALT/SGPT) 16U/L (14-59) Alkaline Phosphatase 113U/L (46-116) Total Protein 5.5g/dL (6.4-8.2) Albumin 2.2g/dL (3.4-5.0) Albumin/Globulin Ratio 0.7 (1.0-1.7) Objective Assessment Partial SBO Multiple abx allergies - Amox/Cephalexin/sulfa rash - tolerated Biaxin Leukocytosis - ? reactive given difficulty with central line placement. has improved some today Sinus congestion Aspiration UTI klebsiella - res to Amp/Pip 12/02. Blood cult 12/02 - neg RUE fracture about 7 weeks ago DM Morbid obesity Plan Plan of Care Discont levofloxacin, Flagyl Cont Tigecycline (12/09) for now - wean soon Patient ill need BC/abdominal CT if febrile. Order CXR CARMINA HERNANDEZ MD Dec 13, 2016 10:19
[2016-12-13 10:36] VITALS: BP 168/68
--- NOTE | 2016-12-13 11:35 | PDOC ---
PURVI ESPARZA [employer]PUT[employer] 12/13/16 1135: SURGICAL PROGRESS NOTE Subjective Tolerating diet had stools yesterday tired today Vital Signs Vital Signs Date Time Temp Pulse Resp B/P Pulse Ox O2 Delivery O2 Flow Rate FiO2 12/13/16 10:36 98.2 92 18 168/68 100 Nasal Cannula 3.0 98.2 I&O Intake and Output 12/13/16 07:00 Intake Total 910 ml Output Total 200 ml Balance 710 ml Intake Oral 460 ml IV Total 450 ml Output Urine Total 200 ml # Voids 5 # Bowel Movements 1 General: Alert, Cooperative, No acute distress Abdomen: Soft, Other (obese) Labs Laboratory Tests Test 12/11/16 15:55 12/11/16 16:53 12/11/16 21:37 12/12/16 06:10 White Blood Count 14.6x10^3/uL (4.0-11.0) 17.9x10^3/uL (4.0-11.0) Red Blood Count 3.06x10^6/uL (3.50-5.40) 2.93x10^6/uL (3.50-5.40) Hemoglobin 7.9g/dL (12.0-15.5) 7.7g/dL (12.0-15.5) Hematocrit 25.9% (36.0-47.0) 24.8% (36.0-47.0) Mean Corpuscular Volume 85fL (79-100) 84fL (79-100) Mean Corpuscular Hemoglobin 26pg (25-35) 26pg (25-35) Mean Corpuscular Hemoglobin Concent 31g/dL (31-37) 31g/dL (31-37) Red Cell Distribution Width 17.9% (11.5-14.5) 18.1% (11.5-14.5) Platelet Count 456x10^3/uL (140-400) 442x10^3/uL (140-400) Neutrophils (%) (Auto) 75% (31-73) 81% (31-73) Lymphocytes (%) (Auto) 16% (24-48) 11% (24-48) Monocytes (%) (Auto) 9% (0-9) 7% (0-9) Eosinophils (%) (Auto) 1% (0-3) 1% (0-3) Basophils (%) (Auto) 0% (0-3) 0% (0-3) Neutrophils # (Auto) 10.9x10^3uL (1.8-7.7) 14.5x10^3uL (1.8-7.7) Lymphocytes # (Auto) 2.3x10^3/uL (1.0-4.8) 2.0x10^3/uL (1.0-4.8) Monocytes # (Auto) 1.2x10^3/uL (0.0-1.1) 1.2x10^3/uL (0.0-1.1) Eosinophils # (Auto) 0.1x10^3/uL (0.0-0.7) 0.1x10^3/uL (0.0-0.7) Basophils # (Auto) 0.0x10^3/uL (0.0-0.2) 0.1x10^3/uL (0.0-0.2) Glucose (Fingerstick) 241mg/dL (70-99) 196mg/dL (70-99) Segmented Neutrophils % 87% (35-66) Band Neutrophils % 2% (0-9) Lymphocytes % 9% (24-48) Atypical Lymphocytes % (Manual) 1% (0-0) Monocytes % 1% (0-10) Platelet Estimate Adequate (ADEQUATE) Sodium Level 139mmol/L (136-145) Potassium Level 3.7mmol/L (3.5-5.1) Chloride Level 105mmol/L (98-107) Carbon Dioxide Level 25mmol/L (21-32) Anion Gap 9 (6-14) Blood Urea Nitrogen 13mg/dL (7-20) Creatinine 0.9mg/dL (0.6-1.0) Estimated GFR (Cockcroft-Gault) 61.5 BUN/Creatinine Ratio 14 (6-20) Glucose Level 238mg/dL (70-99) Calcium Level 7.5mg/dL (8.5-10.1) Total Bilirubin 0.4mg/dL (0.2-1.0) Aspartate Amino Transf (AST/SGOT) 13U/L (15-37) Alanine Aminotransferase (ALT/SGPT) 16U/L (14-59) Alkaline Phosphatase 95U/L (46-116) Total Protein 5.8g/dL (6.4-8.2) Albumin 2.3g/dL (3.4-5.0) Albumin/Globulin Ratio 0.7 (1.0-1.7) Test 12/12/16 07:55 12/12/16 11:09 12/12/16 17:14 12/12/16 21:00 Glucose (Fingerstick) 227mg/dL (70-99) 193mg/dL (70-99) 191mg/dL (70-99) 267mg/dL (70-99) Test 12/13/16 04:59 White Blood Count 13.2x10^3/uL (4.0-11.0) Red Blood Count 3.03x10^6/uL (3.50-5.40) Hemoglobin 8.0g/dL (12.0-15.5) Hematocrit 24.9% (36.0-47.0) Mean Corpuscular Volume 82fL (79-100) Mean Corpuscular Hemoglobin 26pg (25-35) Mean Corpuscular Hemoglobin Concent 32g/dL (31-37) Red Cell Distribution Width 18.3% (11.5-14.5) Platelet Count 469x10^3/uL (140-400) Neutrophils (%) (Auto) 73% (31-73) Lymphocytes (%) (Auto) 16% (24-48) Monocytes (%) (Auto) 10% (0-9) Eosinophils (%) (Auto) 1% (0-3) Basophils (%) (Auto) 0% (0-3) Neutrophils # (Auto) 9.7x10^3uL (1.8-7.7) Lymphocytes # (Auto) 2.1x10^3/uL (1.0-4.8) Monocytes # (Auto) 1.3x10^3/uL (0.0-1.1) Eosinophils # (Auto) 0.1x10^3/uL (0.0-0.7) Basophils # (Auto) 0.0x10^3/uL (0.0-0.2) Sodium Level 141mmol/L (136-145) Potassium Level 3.2mmol/L (3.5-5.1) Chloride Level 107mmol/L (98-107) Carbon Dioxide Level 26mmol/L (21-32) Anion Gap 8 (6-14) Blood Urea Nitrogen 13mg/dL (7-20) Creatinine 0.9mg/dL (0.6-1.0) Estimated GFR (Cockcroft-Gault) 61.5 BUN/Creatinine Ratio 14 (6-20) Glucose Level 204mg/dL (70-99) Calcium Level 7.4mg/dL (8.5-10.1) Total Bilirubin 0.4mg/dL (0.2-1.0) Aspartate Amino Transf (AST/SGOT) 13U/L (15-37) Alanine Aminotransferase (ALT/SGPT) 16U/L (14-59) Alkaline Phosphatase 113U/L (46-116) Total Protein 5.5g/dL (6.4-8.2) Albumin 2.2g/dL (3.4-5.0) Albumin/Globulin Ratio 0.7 (1.0-1.7) Laboratory Tests Test 12/12/16 17:14 12/12/16 21:00 12/13/16 04:59 Glucose (Fingerstick) 191mg/dL (70-99) 267mg/dL (70-99) White Blood Count 13.2x10^3/uL (4.0-11.0) Red Blood Count 3.03x10^6/uL (3.50-5.40) Hemoglobin 8.0g/dL (12.0-15.5) Hematocrit 24.9% (36.0-47.0) Mean Corpuscular Volume 82fL (79-100) Mean Corpuscular Hemoglobin 26pg (25-35) Mean Corpuscular Hemoglobin Concent 32g/dL (31-37) Red Cell Distribution Width 18.3% (11.5-14.5) Platelet Count 469x10^3/uL (140-400) Neutrophils (%) (Auto) 73% (31-73) Lymphocytes (%) (Auto) 16% (24-48) Monocytes (%) (Auto) 10% (0-9) Eosinophils (%) (Auto) 1% (0-3) Basophils (%) (Auto) 0% (0-3) Neutrophils # (Auto) 9.7x10^3uL (1.8-7.7) Lymphocytes # (Auto) 2.1x10^3/uL (1.0-4.8) Monocytes # (Auto) 1.3x10^3/uL (0.0-1.1) Eosinophils # (Auto) 0.1x10^3/uL (0.0-0.7) Basophils # (Auto) 0.0x10^3/uL (0.0-0.2) Sodium Level 141mmol/L (136-145) Potassium Level 3.2mmol/L (3.5-5.1) Chloride Level 107mmol/L (98-107) Carbon Dioxide Level 26mmol/L (21-32) Anion Gap 8 (6-14) Blood Urea Nitrogen 13mg/dL (7-20) Creatinine 0.9mg/dL (0.6-1.0) Estimated GFR (Cockcroft-Gault) 61.5 BUN/Creatinine Ratio 14 (6-20) Glucose Level 204mg/dL (70-99) Calcium Level 7.4mg/dL (8.5-10.1) Total Bilirubin 0.4mg/dL (0.2-1.0) Aspartate Amino Transf (AST/SGOT) 13U/L (15-37) Alanine Aminotransferase (ALT/SGPT) 16U/L (14-59) Alkaline Phosphatase 113U/L (46-116) Total Protein 5.5g/dL (6.4-8.2) Albumin 2.2g/dL (3.4-5.0) Albumin/Globulin Ratio 0.7 (1.0-1.7) Problem List improved bowel function diet as tolerated Problems: ERIBERTO ARMSTRONG MD 12/13/16 1456: SURGICAL PROGRESS NOTE Assessment/Plan pt sleeping comfortably in chair cont supportive care no surgical plans Problems: PURVI ESPARZA APRN Dec 13, 2016 11:35 ERIBERTO ARMSTRONG MD Dec 13, 2016 14:56
--- NOTE | 2016-12-13 12:12 | PDOC ---
PULMONARY PROGRESS NOTES Subjective Afebrile, no overnight events. no sob, + cough, non-productive, no chest pain. + abd discomfort. + Nausea. Vitals Vital Signs Date Time Temp Pulse Resp B/P Pulse Ox O2 Delivery O2 Flow Rate FiO2 12/13/16 11:59 98 Nasal Cannula 3.0 12/13/16 10:36 98.2 92 18 168/68 98.2 ROS: No Nausea, No Chest Pain General: Alert, Oriented X4, No acute distress Lungs: Crackles, Other (decrease bs in bases ) Cardiovascular: S1, S2 Abdomen: Soft, Other (markedly obese) Neuro Exam: Alert, Oriented, Normal Speech Extremities: Other (+ edema) Skin: Warm, Dry Labs Laboratory Tests Test 12/11/16 15:55 12/11/16 16:53 12/11/16 21:37 12/12/16 06:10 White Blood Count 14.6x10^3/uL (4.0-11.0) 17.9x10^3/uL (4.0-11.0) Red Blood Count 3.06x10^6/uL (3.50-5.40) 2.93x10^6/uL (3.50-5.40) Hemoglobin 7.9g/dL (12.0-15.5) 7.7g/dL (12.0-15.5) Hematocrit 25.9% (36.0-47.0) 24.8% (36.0-47.0) Mean Corpuscular Volume 85fL (79-100) 84fL (79-100) Mean Corpuscular Hemoglobin 26pg (25-35) 26pg (25-35) Mean Corpuscular Hemoglobin Concent 31g/dL (31-37) 31g/dL (31-37) Red Cell Distribution Width 17.9% (11.5-14.5) 18.1% (11.5-14.5) Platelet Count 456x10^3/uL (140-400) 442x10^3/uL (140-400) Neutrophils (%) (Auto) 75% (31-73) 81% (31-73) Lymphocytes (%) (Auto) 16% (24-48) 11% (24-48) Monocytes (%) (Auto) 9% (0-9) 7% (0-9) Eosinophils (%) (Auto) 1% (0-3) 1% (0-3) Basophils (%) (Auto) 0% (0-3) 0% (0-3) Neutrophils # (Auto) 10.9x10^3uL (1.8-7.7) 14.5x10^3uL (1.8-7.7) Lymphocytes # (Auto) 2.3x10^3/uL (1.0-4.8) 2.0x10^3/uL (1.0-4.8) Monocytes # (Auto) 1.2x10^3/uL (0.0-1.1) 1.2x10^3/uL (0.0-1.1) Eosinophils # (Auto) 0.1x10^3/uL (0.0-0.7) 0.1x10^3/uL (0.0-0.7) Basophils # (Auto) 0.0x10^3/uL (0.0-0.2) 0.1x10^3/uL (0.0-0.2) Glucose (Fingerstick) 241mg/dL (70-99) 196mg/dL (70-99) Segmented Neutrophils % 87% (35-66) Band Neutrophils % 2% (0-9) Lymphocytes % 9% (24-48) Atypical Lymphocytes % (Manual) 1% (0-0) Monocytes % 1% (0-10) Platelet Estimate Adequate (ADEQUATE) Sodium Level 139mmol/L (136-145) Potassium Level 3.7mmol/L (3.5-5.1) Chloride Level 105mmol/L (98-107) Carbon Dioxide Level 25mmol/L (21-32) Anion Gap 9 (6-14) Blood Urea Nitrogen 13mg/dL (7-20) Creatinine 0.9mg/dL (0.6-1.0) Estimated GFR (Cockcroft-Gault) 61.5 BUN/Creatinine Ratio 14 (6-20) Glucose Level 238mg/dL (70-99) Calcium Level 7.5mg/dL (8.5-10.1) Total Bilirubin 0.4mg/dL (0.2-1.0) Aspartate Amino Transf (AST/SGOT) 13U/L (15-37) Alanine Aminotransferase (ALT/SGPT) 16U/L (14-59) Alkaline Phosphatase 95U/L (46-116) Total Protein 5.8g/dL (6.4-8.2) Albumin 2.3g/dL (3.4-5.0) Albumin/Globulin Ratio 0.7 (1.0-1.7) Test 12/12/16 07:55 12/12/16 11:09 12/12/16 17:14 12/12/16 21:00 Glucose (Fingerstick) 227mg/dL (70-99) 193mg/dL (70-99) 191mg/dL (70-99) 267mg/dL (70-99) Test 12/13/16 04:59 12/13/16 08:00 White Blood Count 13.2x10^3/uL (4.0-11.0) Red Blood Count 3.03x10^6/uL (3.50-5.40) Hemoglobin 8.0g/dL (12.0-15.5) Hematocrit 24.9% (36.0-47.0) Mean Corpuscular Volume 82fL (79-100) Mean Corpuscular Hemoglobin 26pg (25-35) Mean Corpuscular Hemoglobin Concent 32g/dL (31-37) Red Cell Distribution Width 18.3% (11.5-14.5) Platelet Count 469x10^3/uL (140-400) Neutrophils (%) (Auto) 73% (31-73) Lymphocytes (%) (Auto) 16% (24-48) Monocytes (%) (Auto) 10% (0-9) Eosinophils (%) (Auto) 1% (0-3) Basophils (%) (Auto) 0% (0-3) Neutrophils # (Auto) 9.7x10^3uL (1.8-7.7) Lymphocytes # (Auto) 2.1x10^3/uL (1.0-4.8) Monocytes # (Auto) 1.3x10^3/uL (0.0-1.1) Eosinophils # (Auto) 0.1x10^3/uL (0.0-0.7) Basophils # (Auto) 0.0x10^3/uL (0.0-0.2) Sodium Level 141mmol/L (136-145) Potassium Level 3.2mmol/L (3.5-5.1) Chloride Level 107mmol/L (98-107) Carbon Dioxide Level 26mmol/L (21-32) Anion Gap 8 (6-14) Blood Urea Nitrogen 13mg/dL (7-20) Creatinine 0.9mg/dL (0.6-1.0) Estimated GFR (Cockcroft-Gault) 61.5 BUN/Creatinine Ratio 14 (6-20) Glucose Level 204mg/dL (70-99) Calcium Level 7.4mg/dL (8.5-10.1) Total Bilirubin 0.4mg/dL (0.2-1.0) Aspartate Amino Transf (AST/SGOT) 13U/L (15-37) Alanine Aminotransferase (ALT/SGPT) 16U/L (14-59) Alkaline Phosphatase 113U/L (46-116) Total Protein 5.5g/dL (6.4-8.2) Albumin 2.2g/dL (3.4-5.0) Albumin/Globulin Ratio 0.7 (1.0-1.7) Glucose (Fingerstick) 184mg/dL (70-99) Laboratory Tests Test 12/12/16 17:14 12/12/16 21:00 12/13/16 04:59 12/13/16 08:00 Glucose (Fingerstick) 191mg/dL (70-99) 267mg/dL (70-99) 184mg/dL (70-99) White Blood Count 13.2x10^3/uL (4.0-11.0) Red Blood Count 3.03x10^6/uL (3.50-5.40) Hemoglobin 8.0g/dL (12.0-15.5) Hematocrit 24.9% (36.0-47.0) Mean Corpuscular Volume 82fL (79-100) Mean Corpuscular Hemoglobin 26pg (25-35) Mean Corpuscular Hemoglobin Concent 32g/dL (31-37) Red Cell Distribution Width 18.3% (11.5-14.5) Platelet Count 469x10^3/uL (140-400) Neutrophils (%) (Auto) 73% (31-73) Lymphocytes (%) (Auto) 16% (24-48) Monocytes (%) (Auto) 10% (0-9) Eosinophils (%) (Auto) 1% (0-3) Basophils (%) (Auto) 0% (0-3) Neutrophils # (Auto) 9.7x10^3uL (1.8-7.7) Lymphocytes # (Auto) 2.1x10^3/uL (1.0-4.8) Monocytes # (Auto) 1.3x10^3/uL (0.0-1.1) Eosinophils # (Auto) 0.1x10^3/uL (0.0-0.7) Basophils # (Auto) 0.0x10^3/uL (0.0-0.2) Sodium Level 141mmol/L (136-145) Potassium Level 3.2mmol/L (3.5-5.1) Chloride Level 107mmol/L (98-107) Carbon Dioxide Level 26mmol/L (21-32) Anion Gap 8 (6-14) Blood Urea Nitrogen 13mg/dL (7-20) Creatinine 0.9mg/dL (0.6-1.0) Estimated GFR (Cockcroft-Gault) 61.5 BUN/Creatinine Ratio 14 (6-20) Glucose Level 204mg/dL (70-99) Calcium Level 7.4mg/dL (8.5-10.1) Total Bilirubin 0.4mg/dL (0.2-1.0) Aspartate Amino Transf (AST/SGOT) 13U/L (15-37) Alanine Aminotransferase (ALT/SGPT) 16U/L (14-59) Alkaline Phosphatase 113U/L (46-116) Total Protein 5.5g/dL (6.4-8.2) Albumin 2.2g/dL (3.4-5.0) Albumin/Globulin Ratio 0.7 (1.0-1.7) Medications Active Scripts Medications Dose Route/Sig Days Date Category Mupirocin Ointment (Mupirocin) 22 Gm Oint...g. 1 Faheem TP TID 09/17/16 Reported Doxycycline Hyclate 100 Mg Capsule 100 Mg PO BID 09/17/16 Reported Oxybutynin Chloride 5 Mg Tablet 5 Mg PO HS 06/22/16 Reported Myrbetriq (Mirabegron) 50 Mg Tab.er.24h 50 Mg PO HS 06/22/16 Reported Melatonin 5 Mg Tablet 5 Mg PO HS 06/22/16 Reported Advair 250-50 Diskus (Fluticasone/Salmeterol) 1 Each Disk.w.dev 1 Inh IH BID 06/22/16 Reported Proair Hfa Inhaler (Albuterol Sulfate) 8.5 Gm Hfa.aer.ad 1 Puff INH PRN Q6HRS PRN 06/22/16 Reported Vitamin C (Ascorbic Acid) 500 Mg Tablet.er 500 Mg PO DAILY 06/22/16 Reported Zinc Lozenges (Vit A Acet/Vit C/Znox/Propolis) 1 Each Lozenge 1 Each PO DAILY 06/22/16 Reported Oxycodone Hcl 5 Mg Tablet 5 Mg PO Q4HRS PRN 06/22/16 Reported Humalog (Insulin Lispro) 100 Unit/1 Ml Insuln.pen 10 Unit SQ TIDAC 04/20/15 Reported Lantus (Insulin Glargine,Hum.rec.anlog) 100 Unit/1 Ml Vial 38 Unit SQ HS 04/20/15 Reported Alprazolam 1 Mg Tablet 0.5 Tab PO TID PRN 04/20/15 Reported Metformin Hcl 500 Mg Tablet 1 Tab PO BID 04/20/15 Reported Colace (Docusate Sodium) 100 Mg Capsule 1 Cap PO BID 04/20/15 Reported Rizatriptan (Rizatriptan Benzoate) 5 Mg Tablet 5 Mg PO DAILY PRN 04/20/15 Reported Topiramate 200 Mg Tablet 200 Mg PO HS PRN 04/20/15 Reported Promethazine Hcl 25 Mg Tablet 1 Tab PO PRN Q4HRS PRN 04/20/15 Reported Losartan Potassium 100 Mg Tablet 1 Tab PO DAILY 04/20/15 Reported Gabapentin 300 Mg Capsule 1 Cap PO BID 04/20/15 Reported Levothyroxine Sodium 75 Mcg Tablet 1 Tab PO DAILY 04/20/15 Reported [place] 10-325 Tablet (Acetaminophen/Hydrocodone Bitart) 1 Each Tablet 1-2 Tab PO Q4-6HRS 04/20/15 Reported Impression . 1. partial SBO 2. Bronchitis/Aspiration pneumonia 3. Morbid Obesity 4. Chronic Hypoxemic Respiratory Failure - home oxygen at 3.5 L nasal cannula. 5. suspected CANDACE/OHS 6. UTI klebsiella - res to Amp/Pip 12/02. Blood cult 12/02 - neg 7. RUE fracture about 7 weeks ago 8. DM Plan . 1. Continue supportive care 2. Abx per ID: - levofloxacin, Flagyl & Tigecycline 3. Influenza Neg 4. Continue bronchodilators. 5. Discussed evaluation for CANDACE, however refuses evaluation and would not wear NIPPV device. 6. Aspiration precautions - Keep head of the bed elevated to minimize any acid aspiration. 7. Management of small bowel obstruction per PCP and GI. 8. Weight loss was strongly emphasized to the patient. 9. Incentive spirometry. 10. gentle Diuresis MITA ASHLEY MD Dec 13, 2016 12:11
[2016-12-13] MEDS: POTASSIUM CHLORIDE 20 MEQ TABLET.ER. PO SCH ×2 (12:30→17:11)
[2016-12-13] MEDS: ALPRAZOLAM 1 MG TABLET PO PRN (13:44)
[2016-12-13 15:07] VITALS: BP 124/53
[2016-12-13 19:00] VITALS: BP 137/52
[2016-12-13] MEDS: INSULIN DETEMIR 300 UNITS/3 ML INSULN.PEN. SQ SCH (21:38)
[2016-12-13 23:03] VITALS: BP 135/55
[2016-12-14] MEDS: HYDROMORPHONE 2 MG/ML VIAL. IV PRN ×6 (01:07→23:54)
--- NOTE | 2016-12-14 01:35 | PN ---
DATE: 12/13/2016 SUBJECTIVE: The patient is sitting comfortably in her recliner, in no apparent distress. She has had 3 large bowel movements yesterday. Her diet was advanced to full liquid diet. Denied any further episodes of nausea and vomiting. PHYSICAL EXAMINATION: GENERAL: When I examined her, she looked well and was clearly in no apparent respiratory distress, pale. No jaundice, cyanosis, or thyromegaly. No jugular venous distention. No limb edema. VITAL SIGNS: Her heart rate was 92, blood pressure was 168/68, temperature was 98.2, respiratory rate was 18 and oxygen saturation was 100% on 3 liters of oxygen via nasal cannula. HEAD, EYES, EARS, NOSE AND THROAT: Showed normocephalic, atraumatic. NECK: Supple. HEART: Showed normal first and second heart sounds. No gallop, rub or murmur. CHEST: Clear to auscultation. No crepitation or rhonchi. ABDOMEN: Distended, soft, nontender. NEUROLOGIC: She was sleepy, but arousable. Her cranial nerves are intact. She moves her left upper extremity right upper extremity as she has broken right humerus in a sling. She is able to walk with a cane. Her intake was 2500, output was 1300. LABORATORY DATA: This morning showed a serum sodium 141, potassium 3.2, chloride 107, bicarbonate 26, anion gap of 8, BUN 13, creatinine 0.9, estimated GFR was 61 mL per minute. Her glucose was 204, calcium was 7.4. Total bilirubin, AST, ALT, alkaline phosphatase are normal. Total protein 5.5, albumin 2.2. Her white cell count is down to 13,000, hemoglobin 8, hematocrit 24, MCV ____ platelet count of 469,000. ASSESSMENT: 1. Small-bowel obstruction versus paralytic ileus, improving. The patient stated that she has 3 large bowel movements, passed lots of gas. She denied any nausea or vomiting. 2. Pneumonia as well as infection for which she continues to be on IV Flagyl, levofloxacin and tigecycline. 3. Morbid obesity, obstructive sleep apnea. 4. Type 2 diabetes mellitus, suboptimally much better controlled today after we stopped her IV fluid. 5. Right humeral fracture, currently in a sling. 6. Chronic bilateral venous stasis ulcer with recurrent bilateral lower extremity cellulitis. PLAN: To continue with IV antibiotic as recommended by the Infectious Disease specialist. Continue with pain management. Continue with DVT prophylaxis. Continue with physical and occupational therapy once her diet is advanced to a regular diet. We will discharge her to [facility] in [place]. MICHELLE CRESPO MD DR: JARON/binta JOB#: [id number] / [id number]
[2016-12-14 03:28] VITALS: BP 136/59
[2016-12-14 04:30] LABS: CALCIUM 7.5 mg/dL (8.5-10.1); CREATININE 0.9 mg/dL (0.6-1.0); GFR 61.5; POTASSIUM 3.6 mmol/L (3.5-5.1)
[2016-12-14] MEDS: NYSTATIN TOPICAL POWDER 15GM BOTTLE. TP SCH ×2 (06:26→21:00)
[2016-12-14] MEDS: LEVOTHYROXINE 75 MCG TABLET PO SCH (06:26)
[2016-12-14 07:00] VITALS: BP 155/64
[2016-12-14] MEDS: INSULIN ASPART 300 UNITS/3 ML INSULN.PEN SQ SCH ×4 (07:30→21:00)
[2016-12-14] MEDS: POTASSIUM CHLORIDE 20 MEQ TABLET.ER. PO SCH ×3 (07:48→17:37)
[2016-12-14] MEDS: HEPARIN PF for SUB-Q USE 5,000 UNIT/0.5 ML VIAL. SQ SCH ×2 (07:49→20:25)
[2016-12-14] MEDS: IPRATRPIUM/ALBUTEROL 0.5/2.5MG 3 ML NEBU. NEB SCH ×4 (08:15→19:30)
[2016-12-14] MEDS: TIGECYCLINE 50 MG in IV NORMAL SALINE 50ML 50 ML IV SCH ×2 (10:30→20:35)
[2016-12-14 10:55] VITALS: BP 143/51
--- NOTE | 2016-12-14 11:15 | PDOC ---
Infectious Disease Note Subjective Subjective Rough day today. Some SOA ROS ROS GEN: Denies fevers, chills, sweats HEENT: Denies blurred vision, sore throat CV: Denies chest pain GI: Denies n/v/d NEURO: Denies confusion, dizziness MSK: Denies weakness, joint pain/swelling Vital Sign Vital Signs Vital Signs Date Time Temp Pulse Resp B/P Pulse Ox O2 Delivery O2 Flow Rate FiO2 12/14/16 11:04 98 Nasal Cannula 3.0 12/14/16 10:55 98.3 104 18 143/51 98.3 Physical Exam PHYSICAL EXAM GENERAL: NAD, Alert, in chair. Obese HEENT: PERRL, OC/OP -clear NECK: Supple, no JVD, no LN LUNGS: Clear HEART: S1S2, no gallop, no murmur ABD: Soft, NT, no organomegaly, no rebound EXT: 1 - 2 plus edema, no cyanosis. Dependent rubor. Arm in sling [employer]: Alert, oriented x 3, no focal neurologic deficit SKIN: No rash IV: Left chest clean Labs Lab Laboratory Tests Test 12/13/16 11:27 12/13/16 16:46 12/13/16 20:57 12/14/16 04:05 Glucose (Fingerstick) 181mg/dL (70-99) 179mg/dL (70-99) 201mg/dL (70-99) Sodium Level 143mmol/L (136-145) Potassium Level 3.6mmol/L (3.5-5.1) Chloride Level 108mmol/L (98-107) Carbon Dioxide Level 29mmol/L (21-32) Anion Gap 6 (6-14) Blood Urea Nitrogen 15mg/dL (7-20) Creatinine 0.9mg/dL (0.6-1.0) Estimated GFR (Cockcroft-Gault) 61.5 Glucose Level 134mg/dL (70-99) Calcium Level 7.5mg/dL (8.5-10.1) Thyroid Stimulating Hormone (TSH) 2.464uIU/mL (0.358-3.74) Test 12/14/16 07:12 Glucose (Fingerstick) 116mg/dL (70-99) Objective Assessment Partial SBO Multiple abx allergies - Amox/Cephalexin/sulfa rash - tolerated Biaxin Leukocytosis - ? reactive given difficulty with central line placement. has improved some today Sinus congestion Aspiration UTI klebsiella - res to Amp/Pip 12/02. Blood cult 12/02 - neg RUE fracture about 7 weeks ago DM Morbid obesity Plan Plan of Care Cont Tigecycline (12/09) for now - wean soon Labs in am Patient will need BC/abdominal CT if febrile. CARMINA HERNANDEZ MD Dec 14, 2016 11:15
--- NOTE | 2016-12-14 12:25 | PDOC ---
PULMONARY PROGRESS NOTES Subjective Afebrile, no overnight events. no sob, + cough, non-productive, no chest pain. + abd discomfort. + Nausea. Vitals Vital Signs Date Time Temp Pulse Resp B/P Pulse Ox O2 Delivery O2 Flow Rate FiO2 12/14/16 11:04 98 Nasal Cannula 3.0 12/14/16 10:55 98.3 104 18 143/51 98.3 ROS: No Nausea, No Chest Pain General: Alert, Oriented X4, No acute distress Lungs: Crackles, Other (decrease bs in bases ) Cardiovascular: S1, S2 Abdomen: Soft, Other (markedly obese) Neuro Exam: Alert, Oriented, Normal Speech Extremities: Other (+ edema) Skin: Warm, Dry Labs Laboratory Tests Test 12/12/16 17:14 12/12/16 21:00 12/13/16 04:59 12/13/16 08:00 Glucose (Fingerstick) 191mg/dL (70-99) 267mg/dL (70-99) 184mg/dL (70-99) White Blood Count 13.2x10^3/uL (4.0-11.0) Red Blood Count 3.03x10^6/uL (3.50-5.40) Hemoglobin 8.0g/dL (12.0-15.5) Hematocrit 24.9% (36.0-47.0) Mean Corpuscular Volume 82fL (79-100) Mean Corpuscular Hemoglobin 26pg (25-35) Mean Corpuscular Hemoglobin Concent 32g/dL (31-37) Red Cell Distribution Width 18.3% (11.5-14.5) Platelet Count 469x10^3/uL (140-400) Neutrophils (%) (Auto) 73% (31-73) Lymphocytes (%) (Auto) 16% (24-48) Monocytes (%) (Auto) 10% (0-9) Eosinophils (%) (Auto) 1% (0-3) Basophils (%) (Auto) 0% (0-3) Neutrophils # (Auto) 9.7x10^3uL (1.8-7.7) Lymphocytes # (Auto) 2.1x10^3/uL (1.0-4.8) Monocytes # (Auto) 1.3x10^3/uL (0.0-1.1) Eosinophils # (Auto) 0.1x10^3/uL (0.0-0.7) Basophils # (Auto) 0.0x10^3/uL (0.0-0.2) Sodium Level 141mmol/L (136-145) Potassium Level 3.2mmol/L (3.5-5.1) Chloride Level 107mmol/L (98-107) Carbon Dioxide Level 26mmol/L (21-32) Anion Gap 8 (6-14) Blood Urea Nitrogen 13mg/dL (7-20) Creatinine 0.9mg/dL (0.6-1.0) Estimated GFR (Cockcroft-Gault) 61.5 BUN/Creatinine Ratio 14 (6-20) Glucose Level 204mg/dL (70-99) Calcium Level 7.4mg/dL (8.5-10.1) Total Bilirubin 0.4mg/dL (0.2-1.0) Aspartate Amino Transf (AST/SGOT) 13U/L (15-37) Alanine Aminotransferase (ALT/SGPT) 16U/L (14-59) Alkaline Phosphatase 113U/L (46-116) Total Protein 5.5g/dL (6.4-8.2) Albumin 2.2g/dL (3.4-5.0) Albumin/Globulin Ratio 0.7 (1.0-1.7) Test 12/13/16 11:27 12/13/16 16:46 12/13/16 20:57 12/14/16 04:05 Glucose (Fingerstick) 181mg/dL (70-99) 179mg/dL (70-99) 201mg/dL (70-99) Sodium Level 143mmol/L (136-145) Potassium Level 3.6mmol/L (3.5-5.1) Chloride Level 108mmol/L (98-107) Carbon Dioxide Level 29mmol/L (21-32) Anion Gap 6 (6-14) Blood Urea Nitrogen 15mg/dL (7-20) Creatinine 0.9mg/dL (0.6-1.0) Estimated GFR (Cockcroft-Gault) 61.5 Glucose Level 134mg/dL (70-99) Calcium Level 7.5mg/dL (8.5-10.1) Thyroid Stimulating Hormone (TSH) 2.464uIU/mL (0.358-3.74) Test 12/14/16 07:12 12/14/16 11:36 Glucose (Fingerstick) 116mg/dL (70-99) 218mg/dL (70-99) Laboratory Tests Test 12/13/16 16:46 12/13/16 20:57 12/14/16 04:05 12/14/16 07:12 Glucose (Fingerstick) 179mg/dL (70-99) 201mg/dL (70-99) 116mg/dL (70-99) Sodium Level 143mmol/L (136-145) Potassium Level 3.6mmol/L (3.5-5.1) Chloride Level 108mmol/L (98-107) Carbon Dioxide Level 29mmol/L (21-32) Anion Gap 6 (6-14) Blood Urea Nitrogen 15mg/dL (7-20) Creatinine 0.9mg/dL (0.6-1.0) Estimated GFR (Cockcroft-Gault) 61.5 Glucose Level 134mg/dL (70-99) Calcium Level 7.5mg/dL (8.5-10.1) Thyroid Stimulating Hormone (TSH) 2.464uIU/mL (0.358-3.74) Test 12/14/16 11:36 Glucose (Fingerstick) 218mg/dL (70-99) Medications Active Scripts Medications Dose Route/Sig Days Date Category Mupirocin Ointment (Mupirocin) 22 Gm Oint...g. 1 Faheem TP TID 09/17/16 Reported Doxycycline Hyclate 100 Mg Capsule 100 Mg PO BID 09/17/16 Reported Oxybutynin Chloride 5 Mg Tablet 5 Mg PO HS 06/22/16 Reported Myrbetriq (Mirabegron) 50 Mg Tab.er.24h 50 Mg PO HS 06/22/16 Reported Melatonin 5 Mg Tablet 5 Mg PO HS 06/22/16 Reported Advair 250-50 Diskus (Fluticasone/Salmeterol) 1 Each Disk.w.dev 1 Inh IH BID 06/22/16 Reported Proair Hfa Inhaler (Albuterol Sulfate) 8.5 Gm Hfa.aer.ad 1 Puff INH PRN Q6HRS PRN 06/22/16 Reported Vitamin C (Ascorbic Acid) 500 Mg Tablet.er 500 Mg PO DAILY 06/22/16 Reported Zinc Lozenges (Vit A Acet/Vit C/Znox/Propolis) 1 Each Lozenge 1 Each PO DAILY 06/22/16 Reported Oxycodone Hcl 5 Mg Tablet 5 Mg PO Q4HRS PRN 06/22/16 Reported Humalog (Insulin Lispro) 100 Unit/1 Ml Insuln.pen 10 Unit SQ TIDAC 04/20/15 Reported Lantus (Insulin Glargine,Hum.rec.anlog) 100 Unit/1 Ml Vial 38 Unit SQ HS 04/20/15 Reported Alprazolam 1 Mg Tablet 0.5 Tab PO TID PRN 04/20/15 Reported Metformin Hcl 500 Mg Tablet 1 Tab PO BID 04/20/15 Reported Colace (Docusate Sodium) 100 Mg Capsule 1 Cap PO BID 04/20/15 Reported Rizatriptan (Rizatriptan Benzoate) 5 Mg Tablet 5 Mg PO DAILY PRN 04/20/15 Reported Topiramate 200 Mg Tablet 200 Mg PO HS PRN 04/20/15 Reported Promethazine Hcl 25 Mg Tablet 1 Tab PO PRN Q4HRS PRN 04/20/15 Reported Losartan Potassium 100 Mg Tablet 1 Tab PO DAILY 04/20/15 Reported Gabapentin 300 Mg Capsule 1 Cap PO BID 04/20/15 Reported Levothyroxine Sodium 75 Mcg Tablet 1 Tab PO DAILY 04/20/15 Reported [place] 10-325 Tablet (Acetaminophen/Hydrocodone Bitart) 1 Each Tablet 1-2 Tab PO Q4-6HRS 04/20/15 Reported Impression . 1. partial SBO 2. Bronchitis/Aspiration pneumonia 3. Morbid Obesity 4. Chronic Hypoxemic Respiratory Failure - home oxygen at 3.5 L nasal cannula. 5. suspected CANDACE/OHS 6. UTI klebsiella - res to Amp/Pip 12/02. Blood cult 12/02 - neg 7. RUE fracture about 7 weeks ago 8. DM Plan . 1. Continue supportive care 2. Abx per ID: - levofloxacin, Flagyl & Tigecycline 3. Influenza Neg 4. Continue bronchodilators. 5. Discussed evaluation for CANDACE, however refuses evaluation and would not wear NIPPV device. 6. Aspiration precautions - Keep head of the bed elevated to minimize any acid aspiration. 7. Management of small bowel obstruction per PCP and GI. 8. Weight loss was strongly emphasized to the patient. 9. Incentive spirometry. 10. gentle Diuresis 11. d/c to skill per PCP MITA ASHLEY MD Dec 14, 2016 12:25
--- NOTE | 2016-12-14 14:06 | PDOC ---
SURGICAL PROGRESS NOTE Subjective Pt with c/o abd discomfort, diffuse discomfort, sleeping, but awakens Vital Signs Vital Signs Date Time Temp Pulse Resp B/P Pulse Ox O2 Delivery O2 Flow Rate FiO2 12/14/16 11:04 98 Nasal Cannula 3.0 12/14/16 10:55 98.3 104 18 143/51 98.3 I&O Intake and Output 12/14/16 07:00 Intake Total 840 ml Balance 840 ml Intake Oral 840 ml # Voids 4 General: Alert, Oriented X3, Cooperative, mild distress Abdomen: Soft, No tenderness Labs Laboratory Tests Test 12/12/16 17:14 12/12/16 21:00 12/13/16 04:59 12/13/16 08:00 Glucose (Fingerstick) 191mg/dL (70-99) 267mg/dL (70-99) 184mg/dL (70-99) White Blood Count 13.2x10^3/uL (4.0-11.0) Red Blood Count 3.03x10^6/uL (3.50-5.40) Hemoglobin 8.0g/dL (12.0-15.5) Hematocrit 24.9% (36.0-47.0) Mean Corpuscular Volume 82fL (79-100) Mean Corpuscular Hemoglobin 26pg (25-35) Mean Corpuscular Hemoglobin Concent 32g/dL (31-37) Red Cell Distribution Width 18.3% (11.5-14.5) Platelet Count 469x10^3/uL (140-400) Neutrophils (%) (Auto) 73% (31-73) Lymphocytes (%) (Auto) 16% (24-48) Monocytes (%) (Auto) 10% (0-9) Eosinophils (%) (Auto) 1% (0-3) Basophils (%) (Auto) 0% (0-3) Neutrophils # (Auto) 9.7x10^3uL (1.8-7.7) Lymphocytes # (Auto) 2.1x10^3/uL (1.0-4.8) Monocytes # (Auto) 1.3x10^3/uL (0.0-1.1) Eosinophils # (Auto) 0.1x10^3/uL (0.0-0.7) Basophils # (Auto) 0.0x10^3/uL (0.0-0.2) Sodium Level 141mmol/L (136-145) Potassium Level 3.2mmol/L (3.5-5.1) Chloride Level 107mmol/L (98-107) Carbon Dioxide Level 26mmol/L (21-32) Anion Gap 8 (6-14) Blood Urea Nitrogen 13mg/dL (7-20) Creatinine 0.9mg/dL (0.6-1.0) Estimated GFR (Cockcroft-Gault) 61.5 BUN/Creatinine Ratio 14 (6-20) Glucose Level 204mg/dL (70-99) Calcium Level 7.4mg/dL (8.5-10.1) Total Bilirubin 0.4mg/dL (0.2-1.0) Aspartate Amino Transf (AST/SGOT) 13U/L (15-37) Alanine Aminotransferase (ALT/SGPT) 16U/L (14-59) Alkaline Phosphatase 113U/L (46-116) Total Protein 5.5g/dL (6.4-8.2) Albumin 2.2g/dL (3.4-5.0) Albumin/Globulin Ratio 0.7 (1.0-1.7) Test 12/13/16 11:27 12/13/16 16:46 12/13/16 20:57 12/14/16 04:05 Glucose (Fingerstick) 181mg/dL (70-99) 179mg/dL (70-99) 201mg/dL (70-99) Sodium Level 143mmol/L (136-145) Potassium Level 3.6mmol/L (3.5-5.1) Chloride Level 108mmol/L (98-107) Carbon Dioxide Level 29mmol/L (21-32) Anion Gap 6 (6-14) Blood Urea Nitrogen 15mg/dL (7-20) Creatinine 0.9mg/dL (0.6-1.0) Estimated GFR (Cockcroft-Gault) 61.5 Glucose Level 134mg/dL (70-99) Calcium Level 7.5mg/dL (8.5-10.1) Thyroid Stimulating Hormone (TSH) 2.464uIU/mL (0.358-3.74) Test 12/14/16 07:12 12/14/16 11:36 Glucose (Fingerstick) 116mg/dL (70-99) 218mg/dL (70-99) Laboratory Tests Test 12/13/16 16:46 12/13/16 20:57 12/14/16 04:05 12/14/16 07:12 Glucose (Fingerstick) 179mg/dL (70-99) 201mg/dL (70-99) 116mg/dL (70-99) Sodium Level 143mmol/L (136-145) Potassium Level 3.6mmol/L (3.5-5.1) Chloride Level 108mmol/L (98-107) Carbon Dioxide Level 29mmol/L (21-32) Anion Gap 6 (6-14) Blood Urea Nitrogen 15mg/dL (7-20) Creatinine 0.9mg/dL (0.6-1.0) Estimated GFR (Cockcroft-Gault) 61.5 Glucose Level 134mg/dL (70-99) Calcium Level 7.5mg/dL (8.5-10.1) Thyroid Stimulating Hormone (TSH) 2.464uIU/mL (0.358-3.74) Test 12/14/16 11:36 Glucose (Fingerstick) 218mg/dL (70-99) Problem List SBo vs ileus appears near baseline no surgical plans Problems: ERIBERTO ARMSTRONG MD Dec 14, 2016 14:06
[2016-12-14 15:15] VITALS: BP 138/57
[2016-12-14 19:00] VITALS: BP 130/64
[2016-12-14] MEDS: ALPRAZOLAM 1 MG TABLET PO PRN (20:13)
[2016-12-14] MEDS: INSULIN DETEMIR 300 UNITS/3 ML INSULN.PEN. SQ SCH (20:25)
--- NOTE | 2016-12-14 22:43 | PN ---
DATE: 12/14/2016 SUBJECTIVE: The patient is sitting comfortably in her recliner, lethargic, but arousable, continued to ask for pain medication, although she could barely open her eyes. She stated her last bowel movement was yesterday, although she is passing lots of gas according to her. She has no nausea, no vomiting and she continues to be on a full liquid diet. PHYSICAL EXAMINATION: GENERAL: When I examined her this morning, she looked well and was clearly in no apparent respiratory distress, slightly pale, but no jaundice, cyanosis or thyromegaly. No jugular venous distention. No limb edema. VITAL SIGNS: Her heart rate was 103, blood pressure was 155/64, temperature was 98, respiratory rate was 18 and oxygen saturation was 100% on 3 liters of oxygen. HEAD, EYES, EARS, NOSE AND THROAT: Normocephalic, atraumatic. NECK: Supple. HEART: Showed normal first and second heart sounds with no gallop, rub or murmur. CHEST: Clear to auscultation. No crepitation or rhonchi. ABDOMEN: Distended, soft, nontender. No guarding or rigidity. No organomegaly. All hernial orifices intact. Bowel sounds normal. NEUROLOGIC: She is very lethargic, but arousable. Cranial nerves intact. She moves her left upper extremity to much greater extent than right upper extremity. She is mostly confined to her recliner. Her intake over the last 24 hour was 900, output was 200. LABORATORY DATA: As of this morning, her serum sodium was 143, potassium 3.6, chloride 108, bicarbonate 29, anion gap of 6, BUN 15, creatinine 0.9, estimated GFR was 61 mL per minute. Her glucose was 134, calcium was 7.5. Her TSH was 2.464. Her most recent white cell count was 13,200, hemoglobin 8, hematocrit 25, MCV 82 and platelet count of 469,000. ASSESSMENT: 1. Small-bowel obstruction, respiratory failure is improving. The patient stated that she had a bowel movement yesterday and she is passing lots of gas. She denies any nausea or vomiting. 2. Pneumonia as well as urinary tract infection for which she continues to be on IV Flagyl and levofloxacin and tigecycline. 3. Morbid obesity, obstructive sleep apnea. 4. Type 2 diabetes mellitus, suboptimally controlled, however, the blood sugar is much better now that we have stopped the IV fluid. 5. Right humeral fracture, currently in a sling. 6. Chronic bilateral venous stasis ulcer with recurrent bilateral lower extremity cellulitis. PLAN: To continue with IV antibiotic as recommended by Infectious Disease. Continue with pain management. Continue with DVT prophylaxis. Continue with physical and occupational therapy. Once her diet is advanced to a regular diet we will discharge her to [facility] in [place]. MICHELLE CRESPO MD DR: JARON/binta JOB#: [id number] / [id number]
[2016-12-14 22:45] VITALS: BP 136/64
[2016-12-15] MEDS: ALPRAZOLAM 1 MG TABLET PO PRN ×3 (01:31→21:38)
[2016-12-15] MEDS: HYDROMORPHONE 2 MG/ML VIAL. IV PRN ×4 (02:50→17:43)
[2016-12-15 02:52] VITALS: BP 111/56
[2016-12-15 04:57] LABS: BASO # 0.1 x10^3/uL (0.0-0.2); BASO % 0 % (0-3); EOS % 1 % (0-3); HEMATOCRIT 25.3 % (36.0-47.0); LYMPH # 2.1 x10^3/uL (1.0-4.8); LYMPH % 14 % (24-48); MEAN CORPUSCULAR HEMOGLOBIN 26 pg (25-35); MEAN CORPUSCULAR HGB CONC 32 g/dL (31-37); MEAN CORPUSCULAR VOLUME 82 fL (79-100); MONO % 11 % (0-9); NEUT % 73 % (31-73); PLATELET COUNT 423 x10^3/uL (140-400); RED BLOOD COUNT 3.07 x10^6/uL (3.50-5.40); RED CELL DISTRIBUTION WIDTH 18.6 % (11.5-14.5); WHITE BLOOD COUNT 14.3 x10^3/uL (4.0-11.0)
[2016-12-15 05:11] LABS: % SAT IRON 8 % (15-34); IRON,SERUM 15 ug/dL (50-170)
[2016-12-15 05:26] LABS: CALCIUM 7.8 mg/dL (8.5-10.1); CREATININE 0.8 mg/dL (0.6-1.0); GFR 70.5; POTASSIUM 3.8 mmol/L (3.5-5.1)
[2016-12-15] MEDS: LEVOTHYROXINE 75 MCG TABLET PO SCH (05:56)
[2016-12-15 07:00] VITALS: BP_SYST 132; BP_SYST 145; BP_DIAS 54; BP_DIAS 77
[2016-12-15] MEDS: IPRATRPIUM/ALBUTEROL 0.5/2.5MG 3 ML NEBU. NEB SCH ×4 (07:02→20:09)
[2016-12-15] MEDS: POTASSIUM CHLORIDE 20 MEQ TABLET.ER. PO SCH ×3 (07:37→17:43)
[2016-12-15] MEDS: HEPARIN PF for SUB-Q USE 5,000 UNIT/0.5 ML VIAL. SQ SCH ×2 (07:38→21:43)
[2016-12-15] MEDS: INSULIN ASPART 300 UNITS/3 ML INSULN.PEN SQ SCH ×4 (07:39→21:59)
[2016-12-15] MEDS: NYSTATIN TOPICAL POWDER 15GM BOTTLE. TP SCH ×2 (07:50→21:00)
[2016-12-15] MEDS: TIGECYCLINE 50 MG in IV NORMAL SALINE 50ML 50 ML IV SCH (08:37)
--- NOTE | 2016-12-15 10:25 | PDOC ---
Infectious Disease Note Subjective Subjective No nausea. Needs to go to the bathroom Generalized aches ROS ROS GEN: Denies fevers, chills, sweats HEENT: Denies blurred vision, sore throat CV: Denies chest pain RESP: Denies shortness of air, cough GI: Denies n/v/d NEURO: Denies confusion, dizziness MSK: Denies weakness, joint pain/swelling Vital Sign Vital Signs Vital Signs Date Time Temp Pulse Resp B/P Pulse Ox O2 Delivery O2 Flow Rate FiO2 12/15/16 08:00 Nasal Cannula 3.0 12/15/16 07:03 94 12/15/16 07:00 98.4 112 18 132/54 98.4 Physical Exam PHYSICAL EXAM GENERAL: NAD, Alert, in chair. Obese. Looks better today HEENT: PERRL, OC/OP -clear NECK: Supple, no JVD, no LN LUNGS: Clear HEART: S1S2, no gallop, no murmur ABD: Soft, NT, no organomegaly, no rebound EXT: 1 - 2 plus edema, no cyanosis. Dependent rubor. Arm in sling MANAGER ERP: Alert, oriented x 3, no focal neurologic deficit SKIN: No rash IV: Left chest clean Labs Lab Laboratory Tests Test 12/14/16 11:36 12/14/16 16:40 12/14/16 20:23 12/15/16 04:40 Glucose (Fingerstick) 218mg/dL (70-99) 192mg/dL (70-99) 211mg/dL (70-99) White Blood Count 14.3x10^3/uL (4.0-11.0) Red Blood Count 3.07x10^6/uL (3.50-5.40) Hemoglobin 8.0g/dL (12.0-15.5) Hematocrit 25.3% (36.0-47.0) Mean Corpuscular Volume 82fL (79-100) Mean Corpuscular Hemoglobin 26pg (25-35) Mean Corpuscular Hemoglobin Concent 32g/dL (31-37) Red Cell Distribution Width 18.6% (11.5-14.5) Platelet Count 423x10^3/uL (140-400) Neutrophils (%) (Auto) 73% (31-73) Lymphocytes (%) (Auto) 14% (24-48) Monocytes (%) (Auto) 11% (0-9) Eosinophils (%) (Auto) 1% (0-3) Basophils (%) (Auto) 0% (0-3) Neutrophils # (Auto) 10.4x10^3uL (1.8-7.7) Lymphocytes # (Auto) 2.1x10^3/uL (1.0-4.8) Monocytes # (Auto) 1.6x10^3/uL (0.0-1.1) Eosinophils # (Auto) 0.2x10^3/uL (0.0-0.7) Basophils # (Auto) 0.1x10^3/uL (0.0-0.2) Sodium Level 141mmol/L (136-145) Potassium Level 3.8mmol/L (3.5-5.1) Chloride Level 108mmol/L (98-107) Carbon Dioxide Level 26mmol/L (21-32) Anion Gap 7 (6-14) Blood Urea Nitrogen 15mg/dL (7-20) Creatinine 0.8mg/dL (0.6-1.0) Estimated GFR (Cockcroft-Gault) 70.5 Glucose Level 184mg/dL (70-99) Calcium Level 7.8mg/dL (8.5-10.1) Iron Level 15ug/dL (50-170) Total Iron Binding Capacity 183ug/dL (250-450) Iron Saturation 8% (15-34) Ferritin 33ng/mL (8-252) Test 12/15/16 07:11 Glucose (Fingerstick) 154mg/dL (70-99) Objective Assessment Partial SBO Multiple abx allergies - Amox/Cephalexin/sulfa rash - tolerated Biaxin Leukocytosis - ? reactive Sinus congestion Aspiration UTI klebsiella - res to Amp/Pip 12/02. Blood cult 12/02 - neg RUE fracture about 7 weeks ago DM Morbid obesity Plan Plan of Care Discont Tigecycline (12/09 - 12/15) for now Labs in am CARMINA HERNANDEZ MD Dec 15, 2016 10:25
[2016-12-15 11:03] VITALS: BP 149/52
[2016-12-15] MEDS ORDERED: IRON SUCROSE COMPLEX 200 MG in IV NORMAL SALINE 100ML 100 ML IV ONE (14:00)
--- NOTE | 2016-12-15 15:21 | RAD ---
Indication: Right forearm pain. Time of exam 1458 hours. 2 views of the right forearm were obtained. Alignment at the elbow and wrist appears normal. The radius and ulna are intact. There are postop changes in the distal humerus. There is a fully threaded screw noted in the posterior soft tissues at the level of the distal humerus. Impression: 1. There is a screw noted in the posterior soft tissues at the level of the elbow, likely malpositioned. 2. No other significant abnormality is detected.
--- NOTE | 2016-12-15 15:21 | RAD ---
Indication: Right elbow pain. Time of exam 1458 hours. 3 views of the right elbow were obtained. There is a plate and numerous screws transfixing distal humerus fracture. Fracture line does remain partly visible. There is moderate callus formation noted. Elbow alignment is anatomic. The proximal radius and ulna are intact. Impression: ORIF distal humerus fracture. Fracture line remains visible. No other abnormalities are seen.
--- NOTE | 2016-12-15 15:21 | RAD ---
Indication: Right humerus fracture, follow-up. Time of exam 1458 hours. No prior studies are available for comparison. There are 2 separate plates transfixing the right humerus. The hardware appears be intact. Distal humerus fracture alignment is anatomic. Alignment at the shoulder and elbow is normal. Impression: Postop changes to the right humerus. Overall alignment appears anatomic.
[2016-12-15 15:40] VITALS: BP 156/59
--- NOTE | 2016-12-15 16:30 | PDOC ---
SURGICAL PROGRESS NOTE Subjective Pt resting quietly will follow Vital Signs Vital Signs Date Time Temp Pulse Resp B/P Pulse Ox O2 Delivery O2 Flow Rate FiO2 12/15/16 15:40 97.9 118 20 156/59 97 Nasal Cannula 3.0 97.9 I&O Intake and Output 12/15/16 07:00 Intake Total 1630 ml Output Total 100 ml Balance 1530 ml Intake Oral 1630 ml Output Urine Total 100 ml # Voids 3 # Bowel Movements 2 Labs Laboratory Tests Test 12/13/16 16:46 12/13/16 20:57 12/14/16 04:05 12/14/16 07:12 Glucose (Fingerstick) 179mg/dL (70-99) 201mg/dL (70-99) 116mg/dL (70-99) Sodium Level 143mmol/L (136-145) Potassium Level 3.6mmol/L (3.5-5.1) Chloride Level 108mmol/L (98-107) Carbon Dioxide Level 29mmol/L (21-32) Anion Gap 6 (6-14) Blood Urea Nitrogen 15mg/dL (7-20) Creatinine 0.9mg/dL (0.6-1.0) Estimated GFR (Cockcroft-Gault) 61.5 Glucose Level 134mg/dL (70-99) Calcium Level 7.5mg/dL (8.5-10.1) Thyroid Stimulating Hormone (TSH) 2.464uIU/mL (0.358-3.74) Test 12/14/16 11:36 12/14/16 16:40 12/14/16 20:23 12/15/16 04:40 Glucose (Fingerstick) 218mg/dL (70-99) 192mg/dL (70-99) 211mg/dL (70-99) White Blood Count 14.3x10^3/uL (4.0-11.0) Red Blood Count 3.07x10^6/uL (3.50-5.40) Hemoglobin 8.0g/dL (12.0-15.5) Hematocrit 25.3% (36.0-47.0) Mean Corpuscular Volume 82fL (79-100) Mean Corpuscular Hemoglobin 26pg (25-35) Mean Corpuscular Hemoglobin Concent 32g/dL (31-37) Red Cell Distribution Width 18.6% (11.5-14.5) Platelet Count 423x10^3/uL (140-400) Neutrophils (%) (Auto) 73% (31-73) Lymphocytes (%) (Auto) 14% (24-48) Monocytes (%) (Auto) 11% (0-9) Eosinophils (%) (Auto) 1% (0-3) Basophils (%) (Auto) 0% (0-3) Neutrophils # (Auto) 10.4x10^3uL (1.8-7.7) Lymphocytes # (Auto) 2.1x10^3/uL (1.0-4.8) Monocytes # (Auto) 1.6x10^3/uL (0.0-1.1) Eosinophils # (Auto) 0.2x10^3/uL (0.0-0.7) Basophils # (Auto) 0.1x10^3/uL (0.0-0.2) Sodium Level 141mmol/L (136-145) Potassium Level 3.8mmol/L (3.5-5.1) Chloride Level 108mmol/L (98-107) Carbon Dioxide Level 26mmol/L (21-32) Anion Gap 7 (6-14) Blood Urea Nitrogen 15mg/dL (7-20) Creatinine 0.8mg/dL (0.6-1.0) Estimated GFR (Cockcroft-Gault) 70.5 Glucose Level 184mg/dL (70-99) Calcium Level 7.8mg/dL (8.5-10.1) Iron Level 15ug/dL (50-170) Total Iron Binding Capacity 183ug/dL (250-450) Iron Saturation 8% (15-34) Ferritin 33ng/mL (8-252) Test 12/15/16 07:11 12/15/16 11:16 Glucose (Fingerstick) 154mg/dL (70-99) 138mg/dL (70-99) Laboratory Tests Test 12/14/16 16:40 12/14/16 20:23 12/15/16 04:40 12/15/16 07:11 Glucose (Fingerstick) 192mg/dL (70-99) 211mg/dL (70-99) 154mg/dL (70-99) White Blood Count 14.3x10^3/uL (4.0-11.0) Red Blood Count 3.07x10^6/uL (3.50-5.40) Hemoglobin 8.0g/dL (12.0-15.5) Hematocrit 25.3% (36.0-47.0) Mean Corpuscular Volume 82fL (79-100) Mean Corpuscular Hemoglobin 26pg (25-35) Mean Corpuscular Hemoglobin Concent 32g/dL (31-37) Red Cell Distribution Width 18.6% (11.5-14.5) Platelet Count 423x10^3/uL (140-400) Neutrophils (%) (Auto) 73% (31-73) Lymphocytes (%) (Auto) 14% (24-48) Monocytes (%) (Auto) 11% (0-9) Eosinophils (%) (Auto) 1% (0-3) Basophils (%) (Auto) 0% (0-3) Neutrophils # (Auto) 10.4x10^3uL (1.8-7.7) Lymphocytes # (Auto) 2.1x10^3/uL (1.0-4.8) Monocytes # (Auto) 1.6x10^3/uL (0.0-1.1) Eosinophils # (Auto) 0.2x10^3/uL (0.0-0.7) Basophils # (Auto) 0.1x10^3/uL (0.0-0.2) Sodium Level 141mmol/L (136-145) Potassium Level 3.8mmol/L (3.5-5.1) Chloride Level 108mmol/L (98-107) Carbon Dioxide Level 26mmol/L (21-32) Anion Gap 7 (6-14) Blood Urea Nitrogen 15mg/dL (7-20) Creatinine 0.8mg/dL (0.6-1.0) Estimated GFR (Cockcroft-Gault) 70.5 Glucose Level 184mg/dL (70-99) Calcium Level 7.8mg/dL (8.5-10.1) Iron Level 15ug/dL (50-170) Total Iron Binding Capacity 183ug/dL (250-450) Iron Saturation 8% (15-34) Ferritin 33ng/mL (8-252) Test 12/15/16 11:16 Glucose (Fingerstick) 138mg/dL (70-99) ERIBERTO ARMSTRONG MD Dec 15, 2016 16:30
[2016-12-15 19:00] VITALS: BP 115/56
[2016-12-15] MEDS: OXYCODONE IR 5 MG TABLET. PO PRN (21:38)
[2016-12-15] MEDS: INSULIN DETEMIR 300 UNITS/3 ML INSULN.PEN. SQ SCH (21:52)
--- NOTE | 2016-12-15 22:08 | PN ---
DATE: 12/15/2016 SUBJECTIVE: The patient is resting slightly propped up in her recliner, very lethargic and stating that she wants the pain to go away. She could barely open her eyes and talk to me. Her right upper extremity is swollen, has been in a sling now for almost 7 weeks. I will arrange for her to have venous Doppler ultrasound, repeat x-rays and consult Dr. Seals to advise on further management. She stated that she had large bowel movement yesterday and she is passing gas. She is on full liquid diet. She was seen today by the infectious Disease specialist and apparently wanted to give her one more day as her white count went up slightly. PHYSICAL EXAMINATION: GENERAL: When I examined her this afternoon, she was very lethargic, but arousable, pale, but no jaundice, cyanosis, or thyromegaly. No jugular venous distention. No limb edema. VITAL SIGNS: Her heart rate was 109, blood pressure was 149/52, temperature was 97.4, respiratory rate was 18 and oxygen saturation was 97% on 3 liters of oxygen. HEAD, EYES, EARS, NOSE AND THROAT: Showed normocephalic, atraumatic. NECK: Supple. HEART: Showed normal first and second heart sounds with no gallop, rub or murmur. CHEST: Showed central trachea, equally reduced expansion, reduced entry, few scattered rhonchi posteriorly. ABDOMEN: Not distended, soft, nontender. No guarding or rigidity. No organomegaly. Hernial orifices intact. Bowel sounds normal. NEUROLOGIC: She was very lethargic, but arousable. All cranial nerves intact. She moves the left upper extremity to much good extent than right upper extremity, which is markedly swollen, in a sling. She is mostly in her recliner. Her intake over the last 24 hours showed that her intake was 1630, output was incompletely recorded. LABORATORY DATA: Her lab work this morning showed a white cell count of 14,300, hemoglobin 8, hematocrit 25, MCV 82 and platelet count of 423,000 with manual differential showed 73% polymorphs, % lymphocytes, 11% monocytes. Her chemistry showed that her serum sodium of 141, potassium 3.8, chloride 108, bicarbonate 26, anion gap of 7, BUN 18, creatinine 0.8. Estimated GFR was 70 mL per minute. Her glucose was 138. Total serum iron was 15. Total iron binding capacity was 183 and percent saturation was 8. Serum ferritin was 33. ASSESSMENT: 1. Small-bowel obstruction versus paralytic ileus, improving. The patient stated that she has had large bowel movement yesterday and she is passing lots of gas. She denied any nausea or vomiting. 2. Pneumonia as well as urinary tract infection, for which she continues to be on IV Flagyl, levofloxacin and tigecycline. 3. Morbid obesity with obstructive sleep apnea. 4. Type 2 diabetes mellitus, now much better controlled after we discontinued the IV fluid. 5. Right femur fracture, currently in a sling. Her hand and forearm is markedly swollen. 6. Chronic bilateral venous stasis ulcer with recurrent bilateral lower extremity cellulitis. PLAN: My plan is to obviously continue with IV antibiotic as recommended by the infectious disease specialist. Continue with DVT prophylaxis. We will arrange for her to have venous Doppler ultrasound of her right lower extremity and also x-ray of the right humerus, right elbow and right forearm. I will consult Dr. Seals to recommend treatment. The patient is very lethargic, despite this, she continues to want pain to go away completely. I suggested that if she wants the pain completely subsided, we have to consider hospice and I cannot give her more now that she is almost sleepy and lethargic, she was not receptive of the idea. MICHELLE CRESPO MD DR: JARON/binta JOB#: [id number] / [id number]
[2016-12-15 23:00] VITALS: BP_SYST 132; BP_SYST 184; BP_DIAS 52; BP_DIAS 82
[2016-12-16] VITALS (7 sets, daily range): BP systolic 114–145; BP diastolic 36–55
[2016-12-16 05:41] LABS: BASO % 1 % (0-3); EOS % 1 % (0-3); HEMATOCRIT 22.5 % (36.0-47.0); HEMOGLOBIN 7.1 g/dL (12.0-15.5); LYMPH # 1.8 x10^3/uL (1.0-4.8); LYMPH % 19 % (24-48); MEAN CORPUSCULAR HEMOGLOBIN 27 pg (25-35); MEAN CORPUSCULAR HGB CONC 32 g/dL (31-37); MEAN CORPUSCULAR VOLUME 85 fL (79-100); MONO % 10 % (0-9); NEUT % 69 % (31-73); PLATELET COUNT 322 x10^3/uL (140-400); RED BLOOD COUNT 2.65 x10^6/uL (3.50-5.40); RED CELL DISTRIBUTION WIDTH 19.1 % (11.5-14.5); WHITE BLOOD COUNT 9.5 x10^3/uL (4.0-11.0)
[2016-12-16 06:14] LABS: ALBUMIN 1.8 g/dL (3.4-5.0); ALBUMIN/GLOBULIN RATIO 0.6 (1.0-1.7); CALCIUM 7.7 mg/dL (8.5-10.1); CREATININE 0.7 mg/dL (0.6-1.0); GFR 82.3; TOTAL BILIRUBIN 0.2 mg/dL (0.2-1.0); TOTAL PROTEIN 4.6 g/dL (6.4-8.2)
[2016-12-16] MEDS: IPRATRPIUM/ALBUTEROL 0.5/2.5MG 3 ML NEBU. NEB SCH ×4 (06:47→20:27)
--- NOTE | 2016-12-16 07:50 | RAD ---
Right upper extremity venous ultrasound-Limited exam, 12/15/2016: History: Arm swelling, humeral fracture Duplex evaluation of the major veins was attempted. The right internal jugular, subclavian and cephalic veins are patent. Due to the patient's fracture she was unable to abduct or rotate her arm sufficiently for visualization of the axillary, brachial or basilic veins.
[2016-12-16] MEDS: LEVOTHYROXINE 75 MCG TABLET PO SCH (08:35)
[2016-12-16] MEDS: POTASSIUM CHLORIDE 20 MEQ TABLET.ER. PO SCH ×3 (08:35→16:56)
[2016-12-16] MEDS: INSULIN ASPART 300 UNITS/3 ML INSULN.PEN SQ SCH ×4 (08:45→20:32)
[2016-12-16] MEDS: HEPARIN PF for SUB-Q USE 5,000 UNIT/0.5 ML VIAL. SQ SCH ×2 (08:48→20:31)
[2016-12-16] MEDS: OXYCODONE IR 5 MG TABLET. PO PRN (08:51)
[2016-12-16] MEDS: NYSTATIN TOPICAL POWDER 15GM BOTTLE. TP SCH ×2 (08:52→21:00)
--- NOTE | 2016-12-16 09:07 | PDOC ---
Infectious Disease Note Subjective Subjective No nausea. Still occ cough Generalized aches ROS ROS GEN: Denies fevers, chills, sweats HEENT: Denies blurred vision, sore throat CV: Denies chest pain RESP: Denies shortness of air, cough GI: Denies n/v/d NEURO: Denies confusion, dizziness MSK: Denies weakness, joint pain/swelling Vital Sign Vital Signs Vital Signs Date Time Temp Pulse Resp B/P Pulse Ox O2 Delivery O2 Flow Rate FiO2 12/16/16 08:51 20 Nasal Cannula 3.5 12/16/16 07:00 98.0 91 114/36 94 98.0 Physical Exam PHYSICAL EXAM GENERAL: NAD, Alert, in bed. Eating. Obese. Looks better today HEENT: PERRL, OC/OP -clear NECK: Supple, no JVD, no LN LUNGS: Clear HEART: S1S2, no gallop, no murmur ABD: Soft, NT, no organomegaly, no rebound EXT: Chronic1 - 2 plus edema, no cyanosis. Dependent rubor. Arm in sling SNAPPER ON: Alert, oriented x 3, no focal neurologic deficit SKIN: No rash IV: Left chest clean Labs Lab Laboratory Tests Test 12/15/16 11:16 12/15/16 16:59 12/16/16 05:10 12/16/16 07:14 Glucose (Fingerstick) 138mg/dL (70-99) 168mg/dL (70-99) 190mg/dL (70-99) White Blood Count 9.5x10^3/uL (4.0-11.0) Red Blood Count 2.65x10^6/uL (3.50-5.40) Hemoglobin 7.1g/dL (12.0-15.5) Hematocrit 22.5% (36.0-47.0) Mean Corpuscular Volume 85fL (79-100) Mean Corpuscular Hemoglobin 27pg (25-35) Mean Corpuscular Hemoglobin Concent 32g/dL (31-37) Red Cell Distribution Width 19.1% (11.5-14.5) Platelet Count 322x10^3/uL (140-400) Neutrophils (%) (Auto) 69% (31-73) Lymphocytes (%) (Auto) 19% (24-48) Monocytes (%) (Auto) 10% (0-9) Eosinophils (%) (Auto) 1% (0-3) Basophils (%) (Auto) 1% (0-3) Neutrophils # (Auto) 6.6x10^3uL (1.8-7.7) Lymphocytes # (Auto) 1.8x10^3/uL (1.0-4.8) Monocytes # (Auto) 0.9x10^3/uL (0.0-1.1) Eosinophils # (Auto) 0.1x10^3/uL (0.0-0.7) Basophils # (Auto) 0.0x10^3/uL (0.0-0.2) Sodium Level 145mmol/L (136-145) Potassium Level 4.0mmol/L (3.5-5.1) Chloride Level 111mmol/L (98-107) Carbon Dioxide Level 27mmol/L (21-32) Anion Gap 7 (6-14) Blood Urea Nitrogen 14mg/dL (7-20) Creatinine 0.7mg/dL (0.6-1.0) Estimated GFR (Cockcroft-Gault) 82.3 BUN/Creatinine Ratio 20 (6-20) Glucose Level 213mg/dL (70-99) Calcium Level 7.7mg/dL (8.5-10.1) Total Bilirubin 0.2mg/dL (0.2-1.0) Aspartate Amino Transf (AST/SGOT) 12U/L (15-37) Alanine Aminotransferase (ALT/SGPT) 13U/L (14-59) Alkaline Phosphatase 130U/L (46-116) Total Protein 4.6g/dL (6.4-8.2) Albumin 1.8g/dL (3.4-5.0) Albumin/Globulin Ratio 0.6 (1.0-1.7) Objective Assessment Dependent edema and Rubor Anemia Partial SBO Multiple abx allergies - Amox/Cephalexin/sulfa rash - tolerated Biaxin Leukocytosis - better Sinus congestion Aspiration UTI klebsiella - res to Amp/Pip 12/02. Blood cult 12/02 - neg RUE fracture about 7 weeks ago DM Morbid obesity Plan Plan of Care Discont Tigecycline (12/09 - 12/15) for now Tubigrips - then MADDIE when swelling is some better and less pain. Will always need compression CARMINA HERNANDEZ MD Dec 16, 2016 09:07
--- NOTE | 2016-12-16 09:35 | PDOC ---
SURGICAL PROGRESS NOTE Subjective Pt with c/o mild abd pain, lori PO, passing stools Vital Signs Vital Signs Date Time Temp Pulse Resp B/P Pulse Ox O2 Delivery O2 Flow Rate FiO2 12/16/16 08:51 20 Nasal Cannula 3.5 12/16/16 07:00 98.0 91 114/36 94 98.0 I&O Intake and Output 12/16/16 07:00 Intake Total 1590 ml Balance 1590 ml Intake Oral 1480 ml IV Total 110 ml # Voids 4 General: Alert, Oriented X3, Cooperative, No acute distress Abdomen: Soft Labs Laboratory Tests Test 12/14/16 11:36 12/14/16 16:40 12/14/16 20:23 12/15/16 04:40 Glucose (Fingerstick) 218mg/dL (70-99) 192mg/dL (70-99) 211mg/dL (70-99) White Blood Count 14.3x10^3/uL (4.0-11.0) Red Blood Count 3.07x10^6/uL (3.50-5.40) Hemoglobin 8.0g/dL (12.0-15.5) Hematocrit 25.3% (36.0-47.0) Mean Corpuscular Volume 82fL (79-100) Mean Corpuscular Hemoglobin 26pg (25-35) Mean Corpuscular Hemoglobin Concent 32g/dL (31-37) Red Cell Distribution Width 18.6% (11.5-14.5) Platelet Count 423x10^3/uL (140-400) Neutrophils (%) (Auto) 73% (31-73) Lymphocytes (%) (Auto) 14% (24-48) Monocytes (%) (Auto) 11% (0-9) Eosinophils (%) (Auto) 1% (0-3) Basophils (%) (Auto) 0% (0-3) Neutrophils # (Auto) 10.4x10^3uL (1.8-7.7) Lymphocytes # (Auto) 2.1x10^3/uL (1.0-4.8) Monocytes # (Auto) 1.6x10^3/uL (0.0-1.1) Eosinophils # (Auto) 0.2x10^3/uL (0.0-0.7) Basophils # (Auto) 0.1x10^3/uL (0.0-0.2) Sodium Level 141mmol/L (136-145) Potassium Level 3.8mmol/L (3.5-5.1) Chloride Level 108mmol/L (98-107) Carbon Dioxide Level 26mmol/L (21-32) Anion Gap 7 (6-14) Blood Urea Nitrogen 15mg/dL (7-20) Creatinine 0.8mg/dL (0.6-1.0) Estimated GFR (Cockcroft-Gault) 70.5 Glucose Level 184mg/dL (70-99) Calcium Level 7.8mg/dL (8.5-10.1) Iron Level 15ug/dL (50-170) Total Iron Binding Capacity 183ug/dL (250-450) Iron Saturation 8% (15-34) Ferritin 33ng/mL (8-252) Test 12/15/16 07:11 12/15/16 11:16 12/15/16 16:59 12/16/16 05:10 Glucose (Fingerstick) 154mg/dL (70-99) 138mg/dL (70-99) 168mg/dL (70-99) White Blood Count 9.5x10^3/uL (4.0-11.0) Red Blood Count 2.65x10^6/uL (3.50-5.40) Hemoglobin 7.1g/dL (12.0-15.5) Hematocrit 22.5% (36.0-47.0) Mean Corpuscular Volume 85fL (79-100) Mean Corpuscular Hemoglobin 27pg (25-35) Mean Corpuscular Hemoglobin Concent 32g/dL (31-37) Red Cell Distribution Width 19.1% (11.5-14.5) Platelet Count 322x10^3/uL (140-400) Neutrophils (%) (Auto) 69% (31-73) Lymphocytes (%) (Auto) 19% (24-48) Monocytes (%) (Auto) 10% (0-9) Eosinophils (%) (Auto) 1% (0-3) Basophils (%) (Auto) 1% (0-3) Neutrophils # (Auto) 6.6x10^3uL (1.8-7.7) Lymphocytes # (Auto) 1.8x10^3/uL (1.0-4.8) Monocytes # (Auto) 0.9x10^3/uL (0.0-1.1) Eosinophils # (Auto) 0.1x10^3/uL (0.0-0.7) Basophils # (Auto) 0.0x10^3/uL (0.0-0.2) Sodium Level 145mmol/L (136-145) Potassium Level 4.0mmol/L (3.5-5.1) Chloride Level 111mmol/L (98-107) Carbon Dioxide Level 27mmol/L (21-32) Anion Gap 7 (6-14) Blood Urea Nitrogen 14mg/dL (7-20) Creatinine 0.7mg/dL (0.6-1.0) Estimated GFR (Cockcroft-Gault) 82.3 BUN/Creatinine Ratio 20 (6-20) Glucose Level 213mg/dL (70-99) Calcium Level 7.7mg/dL (8.5-10.1) Total Bilirubin 0.2mg/dL (0.2-1.0) Aspartate Amino Transf (AST/SGOT) 12U/L (15-37) Alanine Aminotransferase (ALT/SGPT) 13U/L (14-59) Alkaline Phosphatase 130U/L (46-116) Total Protein 4.6g/dL (6.4-8.2) Albumin 1.8g/dL (3.4-5.0) Albumin/Globulin Ratio 0.6 (1.0-1.7) Test 12/16/16 07:14 Glucose (Fingerstick) 190mg/dL (70-99) Laboratory Tests Test 12/15/16 11:16 12/15/16 16:59 12/16/16 05:10 12/16/16 07:14 Glucose (Fingerstick) 138mg/dL (70-99) 168mg/dL (70-99) 190mg/dL (70-99) White Blood Count 9.5x10^3/uL (4.0-11.0) Red Blood Count 2.65x10^6/uL (3.50-5.40) Hemoglobin 7.1g/dL (12.0-15.5) Hematocrit 22.5% (36.0-47.0) Mean Corpuscular Volume 85fL (79-100) Mean Corpuscular Hemoglobin 27pg (25-35) Mean Corpuscular Hemoglobin Concent 32g/dL (31-37) Red Cell Distribution Width 19.1% (11.5-14.5) Platelet Count 322x10^3/uL (140-400) Neutrophils (%) (Auto) 69% (31-73) Lymphocytes (%) (Auto) 19% (24-48) Monocytes (%) (Auto) 10% (0-9) Eosinophils (%) (Auto) 1% (0-3) Basophils (%) (Auto) 1% (0-3) Neutrophils # (Auto) 6.6x10^3uL (1.8-7.7) Lymphocytes # (Auto) 1.8x10^3/uL (1.0-4.8) Monocytes # (Auto) 0.9x10^3/uL (0.0-1.1) Eosinophils # (Auto) 0.1x10^3/uL (0.0-0.7) Basophils # (Auto) 0.0x10^3/uL (0.0-0.2) Sodium Level 145mmol/L (136-145) Potassium Level 4.0mmol/L (3.5-5.1) Chloride Level 111mmol/L (98-107) Carbon Dioxide Level 27mmol/L (21-32) Anion Gap 7 (6-14) Blood Urea Nitrogen 14mg/dL (7-20) Creatinine 0.7mg/dL (0.6-1.0) Estimated GFR (Cockcroft-Gault) 82.3 BUN/Creatinine Ratio 20 (6-20) Glucose Level 213mg/dL (70-99) Calcium Level 7.7mg/dL (8.5-10.1) Total Bilirubin 0.2mg/dL (0.2-1.0) Aspartate Amino Transf (AST/SGOT) 12U/L (15-37) Alanine Aminotransferase (ALT/SGPT) 13U/L (14-59) Alkaline Phosphatase 130U/L (46-116) Total Protein 4.6g/dL (6.4-8.2) Albumin 1.8g/dL (3.4-5.0) Albumin/Globulin Ratio 0.6 (1.0-1.7) Problem List VIH, SBO, appears to be resolving pt not interested in surgery d/c planning Problems: ERIBERTO ARMSTRONG MD Dec 16, 2016 09:35
[2016-12-16] MEDS: HYDROMORPHONE 2 MG/ML VIAL. IV PRN ×4 (11:36→23:41)
--- NOTE | 2016-12-16 12:12 | PDOC ---
PULMONARY PROGRESS NOTES Subjective Afebrile, no overnight events. no sob, Vitals Vital Signs Date Time Temp Pulse Resp B/P Pulse Ox O2 Delivery O2 Flow Rate FiO2 12/16/16 11:36 20 Nasal Cannula 12/16/16 11:02 97.4 97 133/55 100 3.0 97.4 ROS: No Nausea, No Chest Pain General: Alert, Oriented X4, No acute distress Lungs: Crackles, Other (decrease bs in bases ) Cardiovascular: S1, S2 Abdomen: Soft, Other (markedly obese) Neuro Exam: Alert, Oriented, Normal Speech Extremities: Other (+ edema) Skin: Warm, Dry Labs Laboratory Tests Test 12/14/16 16:40 12/14/16 20:23 12/15/16 04:40 12/15/16 07:11 Glucose (Fingerstick) 192mg/dL (70-99) 211mg/dL (70-99) 154mg/dL (70-99) White Blood Count 14.3x10^3/uL (4.0-11.0) Red Blood Count 3.07x10^6/uL (3.50-5.40) Hemoglobin 8.0g/dL (12.0-15.5) Hematocrit 25.3% (36.0-47.0) Mean Corpuscular Volume 82fL (79-100) Mean Corpuscular Hemoglobin 26pg (25-35) Mean Corpuscular Hemoglobin Concent 32g/dL (31-37) Red Cell Distribution Width 18.6% (11.5-14.5) Platelet Count 423x10^3/uL (140-400) Neutrophils (%) (Auto) 73% (31-73) Lymphocytes (%) (Auto) 14% (24-48) Monocytes (%) (Auto) 11% (0-9) Eosinophils (%) (Auto) 1% (0-3) Basophils (%) (Auto) 0% (0-3) Neutrophils # (Auto) 10.4x10^3uL (1.8-7.7) Lymphocytes # (Auto) 2.1x10^3/uL (1.0-4.8) Monocytes # (Auto) 1.6x10^3/uL (0.0-1.1) Eosinophils # (Auto) 0.2x10^3/uL (0.0-0.7) Basophils # (Auto) 0.1x10^3/uL (0.0-0.2) Sodium Level 141mmol/L (136-145) Potassium Level 3.8mmol/L (3.5-5.1) Chloride Level 108mmol/L (98-107) Carbon Dioxide Level 26mmol/L (21-32) Anion Gap 7 (6-14) Blood Urea Nitrogen 15mg/dL (7-20) Creatinine 0.8mg/dL (0.6-1.0) Estimated GFR (Cockcroft-Gault) 70.5 Glucose Level 184mg/dL (70-99) Calcium Level 7.8mg/dL (8.5-10.1) Iron Level 15ug/dL (50-170) Total Iron Binding Capacity 183ug/dL (250-450) Iron Saturation 8% (15-34) Ferritin 33ng/mL (8-252) Test 12/15/16 11:16 12/15/16 16:59 12/16/16 05:10 12/16/16 07:14 Glucose (Fingerstick) 138mg/dL (70-99) 168mg/dL (70-99) 190mg/dL (70-99) White Blood Count 9.5x10^3/uL (4.0-11.0) Red Blood Count 2.65x10^6/uL (3.50-5.40) Hemoglobin 7.1g/dL (12.0-15.5) Hematocrit 22.5% (36.0-47.0) Mean Corpuscular Volume 85fL (79-100) Mean Corpuscular Hemoglobin 27pg (25-35) Mean Corpuscular Hemoglobin Concent 32g/dL (31-37) Red Cell Distribution Width 19.1% (11.5-14.5) Platelet Count 322x10^3/uL (140-400) Neutrophils (%) (Auto) 69% (31-73) Lymphocytes (%) (Auto) 19% (24-48) Monocytes (%) (Auto) 10% (0-9) Eosinophils (%) (Auto) 1% (0-3) Basophils (%) (Auto) 1% (0-3) Neutrophils # (Auto) 6.6x10^3uL (1.8-7.7) Lymphocytes # (Auto) 1.8x10^3/uL (1.0-4.8) Monocytes # (Auto) 0.9x10^3/uL (0.0-1.1) Eosinophils # (Auto) 0.1x10^3/uL (0.0-0.7) Basophils # (Auto) 0.0x10^3/uL (0.0-0.2) Sodium Level 145mmol/L (136-145) Potassium Level 4.0mmol/L (3.5-5.1) Chloride Level 111mmol/L (98-107) Carbon Dioxide Level 27mmol/L (21-32) Anion Gap 7 (6-14) Blood Urea Nitrogen 14mg/dL (7-20) Creatinine 0.7mg/dL (0.6-1.0) Estimated GFR (Cockcroft-Gault) 82.3 BUN/Creatinine Ratio 20 (6-20) Glucose Level 213mg/dL (70-99) Calcium Level 7.7mg/dL (8.5-10.1) Total Bilirubin 0.2mg/dL (0.2-1.0) Aspartate Amino Transf (AST/SGOT) 12U/L (15-37) Alanine Aminotransferase (ALT/SGPT) 13U/L (14-59) Alkaline Phosphatase 130U/L (46-116) Total Protein 4.6g/dL (6.4-8.2) Albumin 1.8g/dL (3.4-5.0) Albumin/Globulin Ratio 0.6 (1.0-1.7) Test 12/16/16 11:37 Glucose (Fingerstick) 190mg/dL (70-99) Laboratory Tests Test 12/15/16 16:59 12/16/16 05:10 12/16/16 07:14 12/16/16 11:37 Glucose (Fingerstick) 168mg/dL (70-99) 190mg/dL (70-99) 190mg/dL (70-99) White Blood Count 9.5x10^3/uL (4.0-11.0) Red Blood Count 2.65x10^6/uL (3.50-5.40) Hemoglobin 7.1g/dL (12.0-15.5) Hematocrit 22.5% (36.0-47.0) Mean Corpuscular Volume 85fL (79-100) Mean Corpuscular Hemoglobin 27pg (25-35) Mean Corpuscular Hemoglobin Concent 32g/dL (31-37) Red Cell Distribution Width 19.1% (11.5-14.5) Platelet Count 322x10^3/uL (140-400) Neutrophils (%) (Auto) 69% (31-73) Lymphocytes (%) (Auto) 19% (24-48) Monocytes (%) (Auto) 10% (0-9) Eosinophils (%) (Auto) 1% (0-3) Basophils (%) (Auto) 1% (0-3) Neutrophils # (Auto) 6.6x10^3uL (1.8-7.7) Lymphocytes # (Auto) 1.8x10^3/uL (1.0-4.8) Monocytes # (Auto) 0.9x10^3/uL (0.0-1.1) Eosinophils # (Auto) 0.1x10^3/uL (0.0-0.7) Basophils # (Auto) 0.0x10^3/uL (0.0-0.2) Sodium Level 145mmol/L (136-145) Potassium Level 4.0mmol/L (3.5-5.1) Chloride Level 111mmol/L (98-107) Carbon Dioxide Level 27mmol/L (21-32) Anion Gap 7 (6-14) Blood Urea Nitrogen 14mg/dL (7-20) Creatinine 0.7mg/dL (0.6-1.0) Estimated GFR (Cockcroft-Gault) 82.3 BUN/Creatinine Ratio 20 (6-20) Glucose Level 213mg/dL (70-99) Calcium Level 7.7mg/dL (8.5-10.1) Total Bilirubin 0.2mg/dL (0.2-1.0) Aspartate Amino Transf (AST/SGOT) 12U/L (15-37) Alanine Aminotransferase (ALT/SGPT) 13U/L (14-59) Alkaline Phosphatase 130U/L (46-116) Total Protein 4.6g/dL (6.4-8.2) Albumin 1.8g/dL (3.4-5.0) Albumin/Globulin Ratio 0.6 (1.0-1.7) Medications Active Scripts Medications Dose Route/Sig Days Date Category Mupirocin Ointment (Mupirocin) 22 Gm Oint...g. 1 Faheem TP TID 09/17/16 Reported Doxycycline Hyclate 100 Mg Capsule 100 Mg PO BID 09/17/16 Reported Oxybutynin Chloride 5 Mg Tablet 5 Mg PO HS 06/22/16 Reported Myrbetriq (Mirabegron) 50 Mg Tab.er.24h 50 Mg PO HS 06/22/16 Reported Melatonin 5 Mg Tablet 5 Mg PO HS 06/22/16 Reported Advair 250-50 Diskus (Fluticasone/Salmeterol) 1 Each Disk.w.dev 1 Inh IH BID 06/22/16 Reported Proair Hfa Inhaler (Albuterol Sulfate) 8.5 Gm Hfa.aer.ad 1 Puff INH PRN Q6HRS PRN 06/22/16 Reported Vitamin C (Ascorbic Acid) 500 Mg Tablet.er 500 Mg PO DAILY 06/22/16 Reported Zinc Lozenges (Vit A Acet/Vit C/Znox/Propolis) 1 Each Lozenge 1 Each PO DAILY 06/22/16 Reported Oxycodone Hcl 5 Mg Tablet 5 Mg PO Q4HRS PRN 06/22/16 Reported Humalog (Insulin Lispro) 100 Unit/1 Ml Insuln.pen 10 Unit SQ TIDAC 04/20/15 Reported Lantus (Insulin Glargine,Hum.rec.anlog) 100 Unit/1 Ml Vial 38 Unit SQ HS 04/20/15 Reported Alprazolam 1 Mg Tablet 0.5 Tab PO TID PRN 04/20/15 Reported Metformin Hcl 500 Mg Tablet 1 Tab PO BID 04/20/15 Reported Colace (Docusate Sodium) 100 Mg Capsule 1 Cap PO BID 04/20/15 Reported Rizatriptan (Rizatriptan Benzoate) 5 Mg Tablet 5 Mg PO DAILY PRN 04/20/15 Reported Topiramate 200 Mg Tablet 200 Mg PO HS PRN 04/20/15 Reported Promethazine Hcl 25 Mg Tablet 1 Tab PO PRN Q4HRS PRN 04/20/15 Reported Losartan Potassium 100 Mg Tablet 1 Tab PO DAILY 04/20/15 Reported Gabapentin 300 Mg Capsule 1 Cap PO BID 04/20/15 Reported Levothyroxine Sodium 75 Mcg Tablet 1 Tab PO DAILY 04/20/15 Reported Lucas 10-325 Tablet (Acetaminophen/Hydrocodone Bitart) 1 Each Tablet 1-2 Tab PO Q4-6HRS 04/20/15 Reported Impression . 1. partial SBO/ improvement 2. Bronchitis/Aspiration pneumonia/ stable 3. Morbid Obesity 4. Chronic Hypoxemic Respiratory Failure - home oxygen at 3.5 L nasal cannula. 5. suspected CANDACE/OHS 6. UTI klebsiella - res to Amp/Pip 12/02. Blood cult 12/02 - neg 7. RUE fracture about 7 weeks ago 8. DM 9. Pickwickian syndrome Plan . 1. Continue supportive care 2. Abx per ID: 3. Influenza Neg 4. Continue bronchodilators. 5. Discussed evaluation for CANDACE, however refuses evaluation and would not wear NIPPV device. 6. Aspiration precautions - Keep head of the bed elevated to minimize any acid aspiration. 7. Management of small bowel obstruction per PCP and GI. 8. Weight loss was strongly emphasized to the patient. 9. Incentive spirometry. 10. no further recommendations. will see MITA Prasad MD Dec 16, 2016 12:11
[2016-12-16] MEDS ORDERED: IRON SUCROSE COMPLEX 500 MG in IV NORMAL SALINE 250ML 250 ML IV ONE (15:00)
--- NOTE | 2016-12-16 18:13 | PDOC2 ---
CONSULT Date of Consult Date of Consult DATE: 12/16/16 TIME: 12:30 Reason for Consult Reason for Consult: history of right humerus fracture Referring Physician Referring Physician: Dr. Ludwig Identification/Chief Complaint Chief Complaint right arm pain Source Source: Chart review, Patient History of Present Illness Reason for Visit: Ms. Lao is a 71 year old female patient with right arm pain. She had open reduction and internal fixation of a right humerus fracture about two months ago at . She was at for other testing and fell, fracturing her right humerus. She is not quite sure who her orthopedic surgeon was, but after further questioning, she thinks it may have been Dr. Trejo. She says she had a nerve injury associated with her fracture and her hand and fingers are still numb and tingly. She is currently in a right arm immobilizer, which has been in place since surgery. She says her whole arm is painful and her hand is now swollen. She was instructed not to move the arm away from her body, but she mentions her exercises her elbow some. Past Medical History Past Medical History chronic bilateral lower extremity venous stasis with history of cellulitis Cardiovascular: HTN, Hyperlipidemia Pulmonary: COPD, Other (CANDACE) Psych: Anxiety, Depression Musculoskeletal: Other (left humerus fracture 03/2015, right humerus fracture two months ago) Endocrine: Diabetes Past Surgical History Past Surgical History left reverse TSA 03/2015, right humerus ORIF two months ago Past Surgical History: Hernia Repair, Hysterectomy, Other (multiple abdominal surgeries) Family History Family History: No Significant, Family History Unknown Social History No ALCOHOL: none Drugs: None Lives: with Family Current Medications Current Medications Current Medications Dextrose/Sodium Chloride (Iv D5% - 1/2 NS) 1,000 ml @ 75 mls/hr [id number] IV Last administered on 12/11/16t 13:37; Start 12/07/16 at 23:45; Stop 12/12/16 at 10:43; Status DC Acetaminophen (Tylenol) 650 mg PRN Q4HRS PRN [place] MILD PAIN / TEMP; Start at 23:30 Insulin Aspart (Novolog) 0-5 UNITS Q6H SQ ; Start 12/08/16 at 00:00; Stop at 00:00; Status DC Dextrose 12.5 gm 12.5 gm PRN Q15MIN PRN IV SEE COMMENTS; Start 12/07/16 at 23: 30; Stop 12/09/16 at 16:21; Status DC Metronidazole (FLAGYL 500Mmg PREMIX) 100 ml @ 100 mls/hr Q8HRS IV Last administered on 12/13/16 05:32; Start 12/08/16 at 00:00; Stop 12/13/16 at 10:18 ; Status DC Fentanyl Citrate (Fentanyl 2ml Vial) 50 mcg PRN Q3HRS PRN IV PAIN Last administered on 12/09/16 09:41; Start 12/07/16 at 23:30; Stop 12/09/16 at 10:29 ; Status DC Insulin Aspart (Novolog) 0-7 UNITS Q6HRS SQ Last administered on 12/09/16 12: 09; Start 12/08/16 at 00:00; Stop 12/09/16 at 16:21; Status DC Albuterol Sulfate (Ventolin Neb Soln) 2.5 mg PRN QID PRN NEB SHORTNESS OF BREATH; Start 12/08/16 at 00:00 Bisacodyl (Dulcolax Supp) 10 mg PRN DAILY PRN [place] CONSTIPATION Last administered on 12/08/16 09:45; Start 12/08/16 at 00:00 Heparin Sodium (Porcine) 5,000 unit Q12HR SQ Last administered on 12/16/16 08: 48; Start 12/08/16 at 09:00 Albuterol/ Ipratropium 3 ml 3 ml RTQID NEB Last administered on 12/16/16 15:11 ; Start 12/08/16 at 08:00 Levofloxacin/ Dextrose (LEVAQUIN 750mg PREMIX) 150 ml @ 100 mls/hr Q24H IV Last administered on 12/12/16 17:37; Start 12/08/16 at 17:00; Stop 12/13/16 at 10:18; Status DC Nystatin (Nystop) 1 faheem BID TP Last administered on 12/16/16 08:52; Start at 09:00 Ondansetron HCl (Zofran) 4 mg PRN Q6HRS PRN IV NAUSEA/VOMITING Last administered on 12/12/16 02:15; Start 12/08/16 at 00:00 Info (Do NOT chart on this placeholder) 1 each 1X ONCE MC ; Start 12/08/16 at 09:00; Stop 12/08/16 at 09:01; Status UNV Influenza Virus Vaccine Quadrival (Fluarix Quad [id number] Syringe) 0.5 ml ONCE ONCE VAX IM Last administered on 12/08/16 09:45; Start 12/08/16 at 09:00; Stop 12/08/16 at 09:01; Status DC Lidocaine/Sodium Bicarbonate (Buffered Lidocaine 1%) 3 ml 1X ONCE IJ ; Start at 14:15; Stop 12/08/16 at 14:17; Status DC Heparin Sodium/ Sodium Chloride 60 unit 1X ONCE IV ; Start 12/08/16 at 14:15; Stop 12/08/16 at 14:17; Status DC Heparin Sodium/ Sodium Chloride 1,000 unit 1X ONCE IART Last administered on 14:30; Start 12/08/16 at 14:30; Stop 12/08/16 at 14:34; Status DC Lidocaine/Sodium Bicarbonate (Buffered Lidocaine 1%) 20 ml 1X ONCE IJ Last administered on 12/08/16 14:30; Start 12/08/16 at 14:30; Stop 12/08/16 at 14:34 ; Status DC Iodixanol (Visipaque 320) 50 ml STK-MED ONCE .ROUTE ; Start 12/08/16 at 14:53; Stop 12/08/16 at 14:54; Status DC Iodixanol (Visipaque 320) 16 ml 1X ONCE IV Last administered on 12/08/16 15: 41; Start 12/08/16 at 15:45; Stop 12/08/16 at 15:46; Status DC Heparin Sodium (Porcine) (Hep Lock Adult) 500 unit STK-MED ONCE IV ; Start 12/08 at 15:42; Stop 12/08/16 at 15:43; Status DC Heparin Sodium (Porcine) 500 unit 500 unit 1X ONCE IV Last administered on 15:48; Start 12/08/16 at 16:00; Stop 12/08/16 at 16:01; Status DC Tigecycline 100 mg/Sodium Chloride 100 ml @ 200 mls/hr 1X ONCE IV Last administered on 12/09/16 10:54; Start 12/09/16 at 10:30; Stop 12/09/16 at 10:59 ; Status DC Tigecycline/ Sodium Chloride (Tygacil/Iv Sodium Chloride 0.9% 50ml) 50 ml @ 100 mls/hr Q12HR IV Last administered on 12/15/16 08:37; Start 12/09/16 at 21: 00; Stop 12/15/16 at 10:24; Status DC Hydromorphone HCl (Dilaudid) 1 mg PRN Q3HRS PRN IV SEVERE PAIN Last administered on 12/16/16 16:56; Start 12/09/16 at 10:30 Guaifenesin (Robitussin Dm) 10 ml PRN Q6HRS PRN PO COUGH Last administered on 17:19; Start 12/09/16 at 12:45 Insulin Aspart (Novolog) 0-9 UNITS TIDWMEALS SQ Last administered on 12/10/16 12:11; Start 12/09/16 at 17:00; Stop 12/10/16 at 14:17; Status DC Dextrose 12.5 gm PRN Q15MIN PRN IV SEE COMMENTS; Start 12/09/16 at 16:30; Stop 12/10/16 at 14:16; Status DC Insulin Detemir (Levemir) 10 units QHS SQ Last administered on 12/10/16 21:09 ; Start 12/10/16 at 21:00; Stop 12/11/16 at 12:18; Status DC Insulin Aspart (Novolog) 0-9 UNITS Q6H SQ ; Start 12/10/16 at 10:15; Stop at 14:17; Status DC Dextrose 12.5 gm PRN Q15MIN PRN IV SEE COMMENTS; Start 12/10/16 at 10:15 Insulin Aspart (Novolog) 0-9 UNITS Q6HRS SQ Last administered on 12/11/16 12: 14; Start 12/10/16 at 18:00; Stop 12/11/16 at 17:08; Status DC Insulin Detemir (Levemir) 20 units QHS SQ Last administered on 12/15/16 21:52 ; Start 12/11/16 at 21:00 Alprazolam (Xanax) 1 mg PRN TID PRN PO ANXIETY / AGITATION Last administered on 12/15/16 21:38; Start 12/11/16 at 12:30 Levothyroxine Sodium (Synthroid) 75 mcg DAILY07 PO Last administered on 08:35; Start 12/12/16 at 07:00 Oxycodone HCl (Roxicodone) 5 mg PRN Q4HRS PRN PO MODERATE PAIN Last administered on 12/16/16 08:51; Start 12/11/16 at 12:30 Insulin Aspart (Novolog) 0-9 UNITS QIDACHS SQ Last administered on 12/16/16 17 :06; Start 12/11/16 at 17:07 Furosemide (Lasix) 40 mg 1X ONCE IVP Last administered on 12/12/16 14:00; Start 12/12/16 at 13:15; Stop 12/12/16 at 13:16; Status DC Potassium Chloride 20 meq 20 meq TIDWMEALS PO Last administered on 12/16/16 16 :56; Start 12/13/16 at 12:30 Iron Sucrose 200 mg/Sodium Chloride 110 ml @ 55 mls/hr 1X ONCE IV Last administered on 12/15/16 15:51; Start 12/15/16 at 14:00; Stop 12/15/16 at 15:59 ; Status DC Iron Sucrose/ Sodium Chloride (Venofer/Iv Sodium Chloride 0.9% 250ml) 275 ml @ 78.571 mls/ hr 1X ONCE IV Last administered on 12/16/16 16:47; Start at 15:00; Stop 12/16/16 at 18:29 Active Scripts Active Reported Mupirocin Ointment (Mupirocin) 22 Gm Oint...g. 1 Faheem TP TID Doxycycline Hyclate 100 Mg Capsule 100 Mg PO BID Oxybutynin Chloride 5 Mg Tablet 5 Mg PO HS Myrbetriq (Mirabegron) 50 Mg Tab.er.24h 50 Mg PO HS Melatonin 5 Mg Tablet 5 Mg PO HS Advair 250-50 Diskus (Fluticasone/Salmeterol) 1 Each Disk.w.dev 1 Inh IH BID Proair Hfa Inhaler (Albuterol Sulfate) 8.5 Gm Hfa.aer.ad 1 Puff INH PRN Q6HRS PRN Vitamin C (Ascorbic Acid) 500 Mg Tablet.er 500 Mg PO DAILY Zinc Lozenges (Vit A Acet/Vit C/Znox/Propolis) 1 Each Lozenge 1 Each PO DAILY Oxycodone Hcl 5 Mg Tablet 5 Mg PO Q4HRS PRN Humalog (Insulin Lispro) 100 Unit/1 Ml Insuln.pen 10 Unit SQ TIDAC Lantus (Insulin Glargine,Hum.rec.anlog) 100 Unit/1 Ml Vial 38 Unit SQ HS Alprazolam 1 Mg Tablet 0.5 Tab PO TID PRN Metformin Hcl 500 Mg Tablet 1 Tab PO BID Colace (Docusate Sodium) 100 Mg Capsule 1 Cap PO BID Rizatriptan (Rizatriptan Benzoate) 5 Mg Tablet 5 Mg PO DAILY PRN Topiramate 200 Mg Tablet 200 Mg PO HS PRN Promethazine Hcl 25 Mg Tablet 1 Tab PO PRN Q4HRS PRN Losartan Potassium 100 Mg Tablet 1 Tab PO DAILY Gabapentin 300 Mg Capsule 1 Cap PO BID Levothyroxine Sodium 75 Mcg Tablet 1 Tab PO DAILY [place] 10-325 Tablet (Acetaminophen/Hydrocodone Bitart) 1 Each Tablet 1-2 Tab PO Q4-6HRS Allergies Allergies: Coded Allergies: Penicillins (Verified Allergy, Intermediate, 12/08/16) Sulfa (Sulfonamide Antibiotics) (Verified Allergy, Intermediate, 12/08/16) aspirin (Verified Allergy, Intermediate, 12/08/16) cephalexin (Verified Allergy, Intermediate, 04/19/15) diazepam (Verified Allergy, Intermediate, 12/08/16) diphenhydramine (Verified Allergy, Intermediate, 12/08/16) erythromycin base (Verified Allergy, Intermediate, 12/08/16) ROS General: No: Chills, Night Sweats Eyes: No Decreased vision, No Loss of vision HEENT: No: Visual Changes Cardiovascular: No Chest Pain, No Lt Headedness Gastrointestinal: No Nausea, No Vomiting Musculoskeletal: Yes Pain In: (right arm), Yes Swelling In: (right hand) Physical Exam General: Alert, Oriented X3, Cooperative, No acute distress HEENT: Atraumatic Lungs: Normal air movement Heart: Regular rate Abdomen: Soft Skin: No breakdown, No significant lesion Neuro: Normal speech Psych/Mental Status: Mental status NL, Mood NL MUSCULOSKELETAL: Other (The right shoulder remains in an immobilizer. The right arm is tender to palpatoin, spefically just distal to the elbow. There is an area of swelling just distal to the elbow as well. Sensation is intact, but is diminished at the fingers. She says her fingertips feel "tingly" to the touch and have been like this since surgery. Capillary refill < 2 seconds. Peripheral pulses intact.) Vitals VITALS Vital Signs Date Time Temp Pulse Resp B/P Pulse Ox O2 Delivery O2 Flow Rate FiO2 12/16/16 16:56 18 Nasal Cannula 3.5 12/16/16 14:53 98.1 91 145/54 98 98.1 Labs Labs Laboratory Tests Test 12/14/16 20:23 12/15/16 04:40 12/15/16 07:11 12/15/16 11:16 Glucose (Fingerstick) 211mg/dL (70-99) 154mg/dL (70-99) 138mg/dL (70-99) White Blood Count 14.3x10^3/uL (4.0-11.0) Red Blood Count 3.07x10^6/uL (3.50-5.40) Hemoglobin 8.0g/dL (12.0-15.5) Hematocrit 25.3% (36.0-47.0) Mean Corpuscular Volume 82fL (79-100) Mean Corpuscular Hemoglobin 26pg (25-35) Mean Corpuscular Hemoglobin Concent 32g/dL (31-37) Red Cell Distribution Width 18.6% (11.5-14.5) Platelet Count 423x10^3/uL (140-400) Neutrophils (%) (Auto) 73% (31-73) Lymphocytes (%) (Auto) 14% (24-48) Monocytes (%) (Auto) 11% (0-9) Eosinophils (%) (Auto) 1% (0-3) Basophils (%) (Auto) 0% (0-3) Neutrophils # (Auto) 10.4x10^3uL (1.8-7.7) Lymphocytes # (Auto) 2.1x10^3/uL (1.0-4.8) Monocytes # (Auto) 1.6x10^3/uL (0.0-1.1) Eosinophils # (Auto) 0.2x10^3/uL (0.0-0.7) Basophils # (Auto) 0.1x10^3/uL (0.0-0.2) Sodium Level 141mmol/L (136-145) Potassium Level 3.8mmol/L (3.5-5.1) Chloride Level 108mmol/L (98-107) Carbon Dioxide Level 26mmol/L (21-32) Anion Gap 7 (6-14) Blood Urea Nitrogen 15mg/dL (7-20) Creatinine 0.8mg/dL (0.6-1.0) Estimated GFR (Cockcroft-Gault) 70.5 Glucose Level 184mg/dL (70-99) Calcium Level 7.8mg/dL (8.5-10.1) Iron Level 15ug/dL (50-170) Total Iron Binding Capacity 183ug/dL (250-450) Iron Saturation 8% (15-34) Ferritin 33ng/mL (8-252) Test 12/15/16 16:59 12/16/16 05:10 12/16/16 07:14 12/16/16 11:37 Glucose (Fingerstick) 168mg/dL (70-99) 190mg/dL (70-99) 190mg/dL (70-99) White Blood Count 9.5x10^3/uL (4.0-11.0) Red Blood Count 2.65x10^6/uL (3.50-5.40) Hemoglobin 7.1g/dL (12.0-15.5) Hematocrit 22.5% (36.0-47.0) Mean Corpuscular Volume 85fL (79-100) Mean Corpuscular Hemoglobin 27pg (25-35) Mean Corpuscular Hemoglobin Concent 32g/dL (31-37) Red Cell Distribution Width 19.1% (11.5-14.5) Platelet Count 322x10^3/uL (140-400) Neutrophils (%) (Auto) 69% (31-73) Lymphocytes (%) (Auto) 19% (24-48) Monocytes (%) (Auto) 10% (0-9) Eosinophils (%) (Auto) 1% (0-3) Basophils (%) (Auto) 1% (0-3) Neutrophils # (Auto) 6.6x10^3uL (1.8-7.7) Lymphocytes # (Auto) 1.8x10^3/uL (1.0-4.8) Monocytes # (Auto) 0.9x10^3/uL (0.0-1.1) Eosinophils # (Auto) 0.1x10^3/uL (0.0-0.7) Basophils # (Auto) 0.0x10^3/uL (0.0-0.2) Sodium Level 145mmol/L (136-145) Potassium Level 4.0mmol/L (3.5-5.1) Chloride Level 111mmol/L (98-107) Carbon Dioxide Level 27mmol/L (21-32) Anion Gap 7 (6-14) Blood Urea Nitrogen 14mg/dL (7-20) Creatinine 0.7mg/dL (0.6-1.0) Estimated GFR (Cockcroft-Gault) 82.3 BUN/Creatinine Ratio 20 (6-20) Glucose Level 213mg/dL (70-99) Calcium Level 7.7mg/dL (8.5-10.1) Total Bilirubin 0.2mg/dL (0.2-1.0) Aspartate Amino Transf (AST/SGOT) 12U/L (15-37) Alanine Aminotransferase (ALT/SGPT) 13U/L (14-59) Alkaline Phosphatase 130U/L (46-116) Total Protein 4.6g/dL (6.4-8.2) Albumin 1.8g/dL (3.4-5.0) Albumin/Globulin Ratio 0.6 (1.0-1.7) Test 12/16/16 16:33 Glucose (Fingerstick) 225mg/dL (70-99) Laboratory Tests Test 12/16/16 05:10 12/16/16 07:14 12/16/16 11:37 12/16/16 16:33 White Blood Count 9.5x10^3/uL (4.0-11.0) Red Blood Count 2.65x10^6/uL (3.50-5.40) Hemoglobin 7.1g/dL (12.0-15.5) Hematocrit 22.5% (36.0-47.0) Mean Corpuscular Volume 85fL (79-100) Mean Corpuscular Hemoglobin 27pg (25-35) Mean Corpuscular Hemoglobin Concent 32g/dL (31-37) Red Cell Distribution Width 19.1% (11.5-14.5) Platelet Count 322x10^3/uL (140-400) Neutrophils (%) (Auto) 69% (31-73) Lymphocytes (%) (Auto) 19% (24-48) Monocytes (%) (Auto) 10% (0-9) Eosinophils (%) (Auto) 1% (0-3) Basophils (%) (Auto) 1% (0-3) Neutrophils # (Auto) 6.6x10^3uL (1.8-7.7) Lymphocytes # (Auto) 1.8x10^3/uL (1.0-4.8) Monocytes # (Auto) 0.9x10^3/uL (0.0-1.1) Eosinophils # (Auto) 0.1x10^3/uL (0.0-0.7) Basophils # (Auto) 0.0x10^3/uL (0.0-0.2) Sodium Level 145mmol/L (136-145) Potassium Level 4.0mmol/L (3.5-5.1) Chloride Level 111mmol/L (98-107) Carbon Dioxide Level 27mmol/L (21-32) Anion Gap 7 (6-14) Blood Urea Nitrogen 14mg/dL (7-20) Creatinine 0.7mg/dL (0.6-1.0) Estimated GFR (Cockcroft-Gault) 82.3 BUN/Creatinine Ratio 20 (6-20) Glucose Level 213mg/dL (70-99) Calcium Level 7.7mg/dL (8.5-10.1) Total Bilirubin 0.2mg/dL (0.2-1.0) Aspartate Amino Transf (AST/SGOT) 12U/L (15-37) Alanine Aminotransferase (ALT/SGPT) 13U/L (14-59) Alkaline Phosphatase 130U/L (46-116) Total Protein 4.6g/dL (6.4-8.2) Albumin 1.8g/dL (3.4-5.0) Albumin/Globulin Ratio 0.6 (1.0-1.7) Glucose (Fingerstick) 190mg/dL (70-99) 190mg/dL (70-99) 225mg/dL (70-99) Images Images Multiple images of right upper extremity were reviewed. There is plate and screw fixation of the proximal and distal humerus. The hardware appears to be in good position. The distal humerus fracture line remains visible, but there is callus formation seen. There is a screw noted in the soft tissues of the posterior elbow. Assessment/Plan Assessment/Plan Right humerus fracture s/p ORIF approximately two months ago at . The proximal and distal plate and screw fixation of the right humerus appear in good position. Continue right shoulder immobilizer. I will order physical therapy for pendulum exercises and to work on range of motion of the elbow and wrist. Hopefully getting her elbow away from her body and moving it will help the pain and swelling. Ice as needed. Followup with orthopedic surgeon at upon discharge. KAYLA MADRID Dec 16, 2016 18:12
[2016-12-16] MEDS: INSULIN DETEMIR 300 UNITS/3 ML INSULN.PEN. SQ SCH (20:33)
--- NOTE | 2016-12-17 01:45 | PN ---
DATE: 12/16/2016 SUBJECTIVE: The patient is resting in her recliner, sleeping comfortably. She is arousable. On questioning her, she obviously continued to complain of pain; however, her white cell count came down to 9500. We did x-ray of the right humerus which showed that there are 2 separate plates transfixing the right humerus hardware appeared to be intact. Distal humerus fracture alignment is anatomic. Alignment at the shoulder and the elbow is normal. The x-ray of her forearm also showed that there is screw noted in the posterior left soft tissue at the level of the elbow likely malpositioned. No other significant abnormality and her right elbow showed that there is open reduction and internal fixation of distal humerus fracture. Fracture lines remain visible and no other abnormalities detected. There is moderate callus formation noted. Elbow alignment is anatomic. The proximal radius and ulna are intact. She has had bowel movement this morning according to the nursing staff and she is tolerating her food. She has worked with physical therapy and she managed to get out of the bed to chair. She was seen by the surgical team, day care director, infectious disease and she is ready to be discharged to a intermediate facility. She has a bed available that [facility], but her wants her to go to [facility] and our therapeutic case manager is trying to find out if she can be accepted there. OBJECTIVE: GENERAL: When I examined her this afternoon, she was resting slightly propped up in her recliner, in no apparent distress. She was sleepy, but arousable. All cranial nerves intact, she was pale, but no jaundice, cyanosis or thyromegaly. No jugular venous distention. No limb edema. VITAL SIGNS: Her heart rate was 97, blood pressure 133/55, temperature was 97.4, respiratory rate was 18 and oxygen saturation was 100% on 3 liters of oxygen. The rest of the clinical examination is unremarkable and stable. Her intake was 1600. No output was recorded. LABORATORY DATA: Her lab work this morning showed a white cell count of 9500, hemoglobin 7.1, hematocrit 22.5, MCV 85 and platelet count 322,000. Her chemistry showed serum sodium 145, potassium 4, chloride 111, bicarbonate 27, anion gap of 7, BUN 14, creatinine 0.7, estimated GFR was 82 mL per minute. Her glucose was 213. Calcium was 7.7. Total bilirubin, AST, ALT were normal. Alkaline phosphatase slightly elevated. Total protein was 4.6, albumin was 1.8. ASSESSMENT: 1. Small-bowel obstruction versus paralytic ileus, improving. The patient stated that she has had large bowel movement and she is passing gas. Denied any nausea or vomiting. 2. Pneumonia as well as urinary tract infection for which she was treated with IV Flagyl, ____ levofloxacin and tigecycline, all her antibiotics were discontinued. 3. Morbid obesity, obstructive sleep apnea. 4. Type 2 diabetes mellitus, now much better controlled after we discontinued IV fluid. 5. Right humeral fracture, status post open reduction and internal fixation, healing with callus formation. The alignment of the bones in her right upper extremity is maintained. 6. She has chronic bilateral venous stasis ulcer with recurrent bilateral lower extremity cellulitis and swelling of the right upper extremity; however, Doppler ultrasound is negative. PLAN: My plan is obviously to continue with her current medications. Continue to monitor her blood sugar and adjust insulin as needed. Continue with pain management. Continue with DVT prophylaxis. I am awaiting the Orthopedic evaluation. I will also give her another dose of iron sucrose and hopefully discharge her tomorrow to a intermediate facility of her choice. MICHELLE CRESPO MD DR: JARON/binta JOB#: [id number] / [id number]
[2016-12-17] MEDS: HYDROMORPHONE 2 MG/ML VIAL. IV PRN ×5 (03:06→15:51)
[2016-12-17 03:28] VITALS: BP 130/78
[2016-12-17 06:41] LABS: HEMATOCRIT 23.9 % (36.0-47.0); HEMOGLOBIN 7.4 g/dL (12.0-15.5)
[2016-12-17 06:55] LABS: CALCIUM 7.5 mg/dL (8.5-10.1); CREATININE 0.7 mg/dL (0.6-1.0); GFR 82.3; POTASSIUM 4.4 mmol/L (3.5-5.1)
[2016-12-17 07:00] VITALS: BP 134/51
[2016-12-17] MEDS: INSULIN ASPART 300 UNITS/3 ML INSULN.PEN SQ SCH ×4 (07:30→20:29)
[2016-12-17] MEDS: IPRATRPIUM/ALBUTEROL 0.5/2.5MG 3 ML NEBU. NEB SCH ×4 (07:44→20:37)
[2016-12-17] MEDS: LEVOTHYROXINE 75 MCG TABLET PO SCH (08:12)
[2016-12-17] MEDS: NYSTATIN TOPICAL POWDER 15GM BOTTLE. TP SCH ×2 (08:12→21:00)
[2016-12-17] MEDS: POTASSIUM CHLORIDE 20 MEQ TABLET.ER. PO SCH ×3 (08:13→16:57)
[2016-12-17] MEDS: HEPARIN PF for SUB-Q USE 5,000 UNIT/0.5 ML VIAL. SQ SCH ×2 (08:23→20:30)
--- NOTE | 2016-12-17 09:25 | PDOC ---
Infectious Disease Note Subjective Subjective Doing ok. Still cough at times. Likes the tubigrips ROS ROS GEN: Denies fevers, chills, sweats HEENT: Denies blurred vision, sore throat CV: Denies chest pain RESP: Denies shortness of air, cough GI: Denies n/v/d NEURO: Denies confusion, dizziness MSK: Denies weakness, joint pain/swelling Vital Sign Vital Signs Vital Signs Date Time Temp Pulse Resp B/P Pulse Ox O2 Delivery O2 Flow Rate FiO2 12/17/16 08:51 20 94 Nasal Cannula 3.0 12/17/16 07:00 98.4 104 134/51 98.4 Physical Exam PHYSICAL EXAM GENERAL: NAD, Alert, in bed. Obese. Looks better today HEENT: PERRL, OC/OP -clear NECK: Supple, no JVD, no LN LUNGS: Clear HEART: S1S2, no gallop, no murmur ABD: Soft, NT, no organomegaly, no rebound EXT: Chronic 1 plus edema,Tubigrips no cyanosis. Dependent rubor. Arm in sling LPN OR MEDICAL ASSISTANT: Alert, oriented x 3, no focal neurologic deficit SKIN: No rash IV: Left chest clean Labs Lab Laboratory Tests Test 12/16/16 11:37 12/16/16 16:33 12/16/16 20:29 12/17/16 05:50 Glucose (Fingerstick) 190mg/dL (70-99) 225mg/dL (70-99) 255mg/dL (70-99) Hemoglobin 7.4g/dL (12.0-15.5) Hematocrit 23.9% (36.0-47.0) Sodium Level 146mmol/L (136-145) Potassium Level 4.4mmol/L (3.5-5.1) Chloride Level 113mmol/L (98-107) Carbon Dioxide Level 29mmol/L (21-32) Anion Gap 4 (6-14) Blood Urea Nitrogen 11mg/dL (7-20) Creatinine 0.7mg/dL (0.6-1.0) Estimated GFR (Cockcroft-Gault) 82.3 Glucose Level 168mg/dL (70-99) Calcium Level 7.5mg/dL (8.5-10.1) Test 12/17/16 07:07 Glucose (Fingerstick) 145mg/dL (70-99) Objective Assessment Dependent edema and Rubor Anemia Partial SBO Multiple abx allergies - Amox/Cephalexin/sulfa rash - tolerated Biaxin Leukocytosis - better Sinus congestion Aspiration UTI klebsiella - res to Amp/Pip 12/02. Blood cult 12/02 - neg RUE fracture about 7 weeks ago DM Morbid obesity Plan Plan of Care Cont off abx Tubigrips - then MADDIE when swelling is some better and less pain. Will always need compression CARMINA HERNANDEZ MD Dec 17, 2016 09:25
[2016-12-17 10:49] VITALS: BP 159/70
[2016-12-17 14:48] VITALS: BP 167/72
--- NOTE | 2016-12-17 16:05 | PDOC ---
SURGICAL PROGRESS NOTE Subjective Pt reports feeling better, pain with cough, lori PO Vital Signs Vital Signs Date Time Temp Pulse Resp B/P Pulse Ox O2 Delivery O2 Flow Rate FiO2 12/17/16 15:51 20 93 Nasal Cannula 2.0 12/17/16 14:48 97.4 116 167/72 97.4 I&O Intake and Output 12/17/16 07:00 Intake Total 1860 ml Balance 1860 ml Intake Oral 1860 ml # Voids 7 # Bowel Movements 3 General: Alert, Oriented X3, Cooperative, No acute distress Abdomen: Soft, Other (large reducible hernia) Labs Laboratory Tests Test 12/15/16 16:59 12/15/16 21:04 12/16/16 05:10 12/16/16 07:14 Glucose (Fingerstick) 168mg/dL (70-99) 247mg/dL (70-99) 190mg/dL (70-99) White Blood Count 9.5x10^3/uL (4.0-11.0) Red Blood Count 2.65x10^6/uL (3.50-5.40) Hemoglobin 7.1g/dL (12.0-15.5) Hematocrit 22.5% (36.0-47.0) Mean Corpuscular Volume 85fL (79-100) Mean Corpuscular Hemoglobin 27pg (25-35) Mean Corpuscular Hemoglobin Concent 32g/dL (31-37) Red Cell Distribution Width 19.1% (11.5-14.5) Platelet Count 322x10^3/uL (140-400) Neutrophils (%) (Auto) 69% (31-73) Lymphocytes (%) (Auto) 19% (24-48) Monocytes (%) (Auto) 10% (0-9) Eosinophils (%) (Auto) 1% (0-3) Basophils (%) (Auto) 1% (0-3) Neutrophils # (Auto) 6.6x10^3uL (1.8-7.7) Lymphocytes # (Auto) 1.8x10^3/uL (1.0-4.8) Monocytes # (Auto) 0.9x10^3/uL (0.0-1.1) Eosinophils # (Auto) 0.1x10^3/uL (0.0-0.7) Basophils # (Auto) 0.0x10^3/uL (0.0-0.2) Sodium Level 145mmol/L (136-145) Potassium Level 4.0mmol/L (3.5-5.1) Chloride Level 111mmol/L (98-107) Carbon Dioxide Level 27mmol/L (21-32) Anion Gap 7 (6-14) Blood Urea Nitrogen 14mg/dL (7-20) Creatinine 0.7mg/dL (0.6-1.0) Estimated GFR (Cockcroft-Gault) 82.3 BUN/Creatinine Ratio 20 (6-20) Glucose Level 213mg/dL (70-99) Calcium Level 7.7mg/dL (8.5-10.1) Total Bilirubin 0.2mg/dL (0.2-1.0) Aspartate Amino Transf (AST/SGOT) 12U/L (15-37) Alanine Aminotransferase (ALT/SGPT) 13U/L (14-59) Alkaline Phosphatase 130U/L (46-116) Total Protein 4.6g/dL (6.4-8.2) Albumin 1.8g/dL (3.4-5.0) Albumin/Globulin Ratio 0.6 (1.0-1.7) Test 12/16/16 11:37 12/16/16 16:33 12/16/16 20:29 12/17/16 05:50 Glucose (Fingerstick) 190mg/dL (70-99) 225mg/dL (70-99) 255mg/dL (70-99) Hemoglobin 7.4g/dL (12.0-15.5) Hematocrit 23.9% (36.0-47.0) Sodium Level 146mmol/L (136-145) Potassium Level 4.4mmol/L (3.5-5.1) Chloride Level 113mmol/L (98-107) Carbon Dioxide Level 29mmol/L (21-32) Anion Gap 4 (6-14) Blood Urea Nitrogen 11mg/dL (7-20) Creatinine 0.7mg/dL (0.6-1.0) Estimated GFR (Cockcroft-Gault) 82.3 Glucose Level 168mg/dL (70-99) Calcium Level 7.5mg/dL (8.5-10.1) Test 12/17/16 07:07 12/17/16 11:32 Glucose (Fingerstick) 145mg/dL (70-99) 166mg/dL (70-99) Laboratory Tests Test 12/16/16 16:33 12/16/16 20:29 12/17/16 05:50 12/17/16 07:07 Glucose (Fingerstick) 225mg/dL (70-99) 255mg/dL (70-99) 145mg/dL (70-99) Hemoglobin 7.4g/dL (12.0-15.5) Hematocrit 23.9% (36.0-47.0) Sodium Level 146mmol/L (136-145) Potassium Level 4.4mmol/L (3.5-5.1) Chloride Level 113mmol/L (98-107) Carbon Dioxide Level 29mmol/L (21-32) Anion Gap 4 (6-14) Blood Urea Nitrogen 11mg/dL (7-20) Creatinine 0.7mg/dL (0.6-1.0) Estimated GFR (Cockcroft-Gault) 82.3 Glucose Level 168mg/dL (70-99) Calcium Level 7.5mg/dL (8.5-10.1) Test 12/17/16 11:32 Glucose (Fingerstick) 166mg/dL (70-99) Problem List SBO, VIH agree with d/c planning pt not interested in surgery will sign off, but please call for questions Problems: ERIBERTO ARMSTRONG MD Dec 17, 2016 16:05
[2016-12-17 19:00] VITALS: BP 126/71
[2016-12-17] MEDS: ALPRAZOLAM 1 MG TABLET PO PRN (20:13)
[2016-12-17] MEDS: OXYCODONE IR 5 MG TABLET. PO PRN (20:14)
[2016-12-17] MEDS: INSULIN DETEMIR 300 UNITS/3 ML INSULN.PEN. SQ SCH (20:30)
[2016-12-17 22:54] VITALS: BP 122/46
[2016-12-18] MEDS: OXYCODONE IR 5 MG TABLET. PO PRN ×4 (00:29→20:07)
[2016-12-18 02:52] VITALS: BP 143/58
--- NOTE | 2016-12-18 05:20 | PN ---
DATE: 12/17/2016 SUBJECTIVE: The patient is resting slightly propped up in bed, in no apparent distress. She is awake, alert, continued to complain of cough. She completed her antibiotic treatment. She has been afebrile with normal white cell count and she was seen, she had venous Doppler ultrasound of the right upper extremity, which was normal. Her x-rays of right humerus showed that fracture is healing nicely. We did consult Dr. Seals to advise regarding further management. The proximal and distal plate and screw fixation of the right humerus appears in good position, the orthopedic surgeon recommended continuing the right shoulder immobilizer and to start physical therapy. PHYSICAL EXAMINATION: GENERAL: When I examined her this morning, she looked well and was clearly in no apparent respiratory distress, pale, but no jaundice, cyanosis or thyromegaly. No jugular venous distention. No limb edema. VITAL SIGNS: Her heart rate was 117, blood pressure 159/70, temperature was 98.1, respiratory rate was 18 and oxygen saturation was 95% on 3 liters of oxygen. HEAD, EYES, EARS, NOSE AND THROAT: Showed normocephalic, atraumatic. NECK: Supple. HEART: Showed normal first and second heart sounds. No gallop, rub or murmur. CHEST: Clear to auscultation. No crepitation or rhonchi. ABDOMEN: Distended, soft, nontender. No guarding or rigidity. No organomegaly. Hernial orifices intact. Bowel sounds normal. NEUROLOGIC: She is awake, alert, responding appropriately. All her cranial nerves intact. She moves the left upper extremity without difficulty. Her right upper extremity in right shoulder immobilizer. She is able to walk with a cane. Her intake over the last 24 hours was 1860, no output was recorded. LABORATORY DATA: As of this morning showed a hemoglobin to be 7.4, hematocrit 23.9. Her serum sodium was 136, potassium 4.4, chloride 113, bicarbonate 29, anion gap of 4, BUN 11, creatinine 0.7, estimated GFR was 82 mL per minute. Her glucose was 168 and calcium was 7.5. ASSESSMENT: 1. Small-bowel obstruction versus paralytic ileus improved. The patient has multiple bowel movements. She is passing flatus. Denied any nausea or vomiting. 2. Pneumonia as well as urinary tract infection treated with IV Flagyl and levofloxacin as well as tigecycline. All her antibiotics were discontinued. She is now afebrile and hemodynamically stable with normal white cell count. 3. Morbid obesity, obstructive sleep apnea. 4. Type 2 diabetes mellitus, much better controlled after we discontinued her IV fluids. 5. Right humeral fracture, status post open reduction and internal fixation healing with callus formation. The alignment of the bones in her right upper extremity is maintained 6. She has had chronic bilateral venous stasis ulcers with recurrent bilateral lower extremity cellulitis. 7. Swelling of the right upper extremity____; however, the venous Doppler ultrasound is negative. PLAN: To discharge the patient to [facility] if she was accepted there. MICHELLE CRESPO MD DR: JARON/binta JOB#: [id number] / [id number]
[2016-12-18] MEDS: LEVOTHYROXINE 75 MCG TABLET PO SCH (06:51)
[2016-12-18 07:00] VITALS: BP 148/69
[2016-12-18] MEDS: IPRATRPIUM/ALBUTEROL 0.5/2.5MG 3 ML NEBU. NEB SCH ×4 (07:11→19:55)
[2016-12-18] MEDS: INSULIN ASPART 300 UNITS/3 ML INSULN.PEN SQ SCH ×4 (08:16→21:38)
[2016-12-18] MEDS: GUAIFENESIN DM 200MG/20MG 10 ML SYRUP. PO PRN (09:07)
[2016-12-18] MEDS: POTASSIUM CHLORIDE 20 MEQ TABLET.ER. PO SCH ×3 (09:07→17:32)
[2016-12-18] MEDS: HEPARIN PF for SUB-Q USE 5,000 UNIT/0.5 ML VIAL. SQ SCH ×2 (09:14→20:13)
[2016-12-18] MEDS: NYSTATIN TOPICAL POWDER 15GM BOTTLE. TP SCH ×2 (09:15→20:10)
[2016-12-18 11:00] VITALS: BP 144/75
[2016-12-18] MEDS ORDERED: IRON SUCROSE COMPLEX 200 MG in IV NORMAL SALINE 100ML 100 ML IV ONE (14:00)
[2016-12-18 15:00] VITALS: BP 188/87
[2016-12-18] MEDS: HYDROMORPHONE 2 MG/ML VIAL. IV PRN (17:32)
[2016-12-18] MEDS: ALPRAZOLAM 1 MG TABLET PO PRN (17:50)
[2016-12-18 19:00] VITALS: BP 166/75
[2016-12-18] MEDS: GUAIFENESIN ER 600 MG TABLET.ER PO SCH (20:07)
[2016-12-18] MEDS: INSULIN DETEMIR 300 UNITS/3 ML INSULN.PEN. SQ SCH (21:42)
[2016-12-19 03:00] VITALS: BP 143/68
[2016-12-19] MEDS: HYDROMORPHONE 2 MG/ML VIAL. IV PRN ×4 (03:06→20:26)
--- NOTE | 2016-12-19 05:23 | PN ---
DATE: 12/18/2016 SUBJECTIVE: The patient is resting slightly propped up in bed, in no apparent distress. She is sleepy, but arousable. On questioning her, she stated that she is tired as she worked hard with physical therapy. The nursing staff did not voice any concern. She had an uneventful night. PHYSICAL EXAMINATION: GENERAL: When I examined her, she looked pale, but no jaundice, cyanosis. No lymphadenopathy, no thyromegaly. No jugular venous distention. No limb edema. VITAL SIGNS: Her heart rate was 107, blood pressure 144/75, temperature was 97.3, respiratory rate was 18 and oxygen saturation was 96% on 3 liters oxygen. HEAD, EYES, EARS, NOSE AND THROAT: Showed normocephalic, atraumatic. NECK: Supple. HEART: Showed normal first and second heart sounds. No gallop, rub or murmur. CHEST: Clear to auscultation. No wheezes or rhonchi. ABDOMEN: Distended, soft, nontender. No guarding or rigidity. No organomegaly. Hernial orifices intact. Bowel sounds normal. NEUROLOGIC: She was sleepy, but arousable. All cranial nerves intact. She moves her left upper extremity to much good extent than right lower extremity. She is in a right shoulder immobilizer for right humeral fracture, status post open reduction and internal fixation. She moves her left upper extremity and both lower extremities without difficulty. She ambulates. She works with physical therapy; however, she apparently requires Srini lift to transfer from bed to chair and vice versa. Her intake was 1000. No output was recorded. LABORATORY DATA: Her lab work as of yesterday showed a hemoglobin of 7.4, hematocrit 23.9. Her chemistry showed that her blood sugar is reasonably controlled. Her BUN was 11, creatinine 0.7. ASSESSMENT: 1. Small-bowel obstruction versus paralytic ileus, resolved. The patient has multiple bowel movements. She is passing flatus. Denied any nausea or vomiting. She is tolerating her full liquid diet. 2. Pneumonia as well as urinary tract infection, treated with IV Flagyl and levofloxacin and tigecycline. All her antibiotics were discontinued. She is afebrile and hemodynamically stable with normal white cell count. 3. Morbid obesity, obstructive sleep apnea. 4. Type 2 diabetes mellitus, much better controlled after we discontinued her IV fluid. 5. Right humeral fracture, status post open reduction and internal fixation, healing with callus formation. The alignment of the bones in her right upper extremity is maintained. She was evaluated by the orthopedic surgeon who recommended starting physical therapy. 6. Swollen right upper extremity; however, the venous Doppler ultrasound was negative for deep vein thrombosis. 7. She has had chronic bilateral venous stasis ulcer with recurrent bilateral lower extremity cellulitis. PLAN: To continue with current medications. I will arrange for her to have another dose of IV Venofer. I will repeat her labs tomorrow and await placement in [facility] facility. MICHELLE CRESPO MD DR: JARON/binta JOB#: [id number] / [id number]
[2016-12-19] MEDS: LEVOTHYROXINE 75 MCG TABLET PO SCH (06:51)
[2016-12-19 07:00] VITALS: BP 154/66
[2016-12-19] MEDS: IPRATRPIUM/ALBUTEROL 0.5/2.5MG 3 ML NEBU. NEB SCH ×4 (07:06→20:51)
[2016-12-19] MEDS ORDERED: ALTEPLASE 2 MG VIAL INT CAT ONE (07:30)
[2016-12-19] MEDS: INSULIN ASPART 300 UNITS/3 ML INSULN.PEN SQ SCH ×5 (07:51→20:30)
[2016-12-19] MEDS: OXYCODONE IR 5 MG TABLET. PO PRN ×2 (09:01→12:48)
[2016-12-19] MEDS: NYSTATIN TOPICAL POWDER 15GM BOTTLE. TP SCH ×2 (09:01→20:28)
[2016-12-19] MEDS: GUAIFENESIN ER 600 MG TABLET.ER PO SCH ×2 (09:01→20:26)
[2016-12-19] MEDS: POTASSIUM CHLORIDE 20 MEQ TABLET.ER. PO SCH ×3 (09:01→17:09)
[2016-12-19] MEDS: HEPARIN PF for SUB-Q USE 5,000 UNIT/0.5 ML VIAL. SQ SCH ×2 (09:06→20:31)
[2016-12-19 09:27] LABS: HEMATOCRIT 25.1 % (36.0-47.0); HEMOGLOBIN 7.9 g/dL (12.0-15.5)
[2016-12-19 09:32] LABS: CALCIUM 7.8 mg/dL (8.5-10.1); CREATININE 0.7 mg/dL (0.6-1.0); GFR 82.3; POTASSIUM 4.3 mmol/L (3.5-5.1)
[2016-12-19] MEDS: ALPRAZOLAM 1 MG TABLET PO PRN ×2 (09:39→20:26)
--- NOTE | 2016-12-19 10:27 | PDOC ---
PULMONARY PROGRESS NOTES Subjective Afebrile, no overnight events. feels congested/ SOA with exertion Vitals Vital Signs Date Time Temp Pulse Resp B/P Pulse Ox O2 Delivery O2 Flow Rate FiO2 12/19/16 09:01 99 Nasal Cannula 3.0 12/19/16 07:00 97.6 98 24 154/66 97.6 ROS: No Nausea, No Chest Pain General: Alert, Oriented X4, No acute distress Lungs: Other (decrease bs in bases ) Cardiovascular: S1, S2 Abdomen: Soft, Other (markedly obese) Neuro Exam: Alert, Oriented, Normal Speech Extremities: Other (+ edema) Skin: Warm, Dry Labs Laboratory Tests Test 12/17/16 11:32 12/17/16 16:46 12/17/16 20:17 12/18/16 07:02 Glucose (Fingerstick) 166mg/dL (70-99) 180mg/dL (70-99) 269mg/dL (70-99) 120mg/dL (70-99) Test 12/18/16 11:29 12/18/16 16:28 12/18/16 21:11 12/19/16 07:45 Glucose (Fingerstick) 149mg/dL (70-99) 180mg/dL (70-99) 194mg/dL (70-99) 90mg/dL (70-99) Test 12/19/16 09:15 Hemoglobin 7.9g/dL (12.0-15.5) Hematocrit 25.1% (36.0-47.0) Sodium Level 146mmol/L (136-145) Potassium Level 4.3mmol/L (3.5-5.1) Chloride Level 111mmol/L (98-107) Carbon Dioxide Level 30mmol/L (21-32) Anion Gap 5 (6-14) Blood Urea Nitrogen 7mg/dL (7-20) Creatinine 0.7mg/dL (0.6-1.0) Estimated GFR (Cockcroft-Gault) 82.3 Glucose Level 74mg/dL (70-99) Calcium Level 7.8mg/dL (8.5-10.1) Laboratory Tests Test 12/18/16 11:29 12/18/16 16:28 12/18/16 21:11 12/19/16 07:45 Glucose (Fingerstick) 149mg/dL (70-99) 180mg/dL (70-99) 194mg/dL (70-99) 90mg/dL (70-99) Test 12/19/16 09:15 Hemoglobin 7.9g/dL (12.0-15.5) Hematocrit 25.1% (36.0-47.0) Sodium Level 146mmol/L (136-145) Potassium Level 4.3mmol/L (3.5-5.1) Chloride Level 111mmol/L (98-107) Carbon Dioxide Level 30mmol/L (21-32) Anion Gap 5 (6-14) Blood Urea Nitrogen 7mg/dL (7-20) Creatinine 0.7mg/dL (0.6-1.0) Estimated GFR (Cockcroft-Gault) 82.3 Glucose Level 74mg/dL (70-99) Calcium Level 7.8mg/dL (8.5-10.1) Medications Active Scripts Medications Dose Route/Sig Days Date Category Mupirocin Ointment (Mupirocin) 22 Gm Oint...g. 1 Faheem TP TID 09/17/16 Reported Doxycycline Hyclate 100 Mg Capsule 100 Mg PO BID 09/17/16 Reported Oxybutynin Chloride 5 Mg Tablet 5 Mg PO HS 06/22/16 Reported Myrbetriq (Mirabegron) 50 Mg Tab.er.24h 50 Mg PO HS 06/22/16 Reported Melatonin 5 Mg Tablet 5 Mg PO HS 06/22/16 Reported Advair 250-50 Diskus (Fluticasone/Salmeterol) 1 Each Disk.w.dev 1 Inh IH BID 06/22/16 Reported Proair Hfa Inhaler (Albuterol Sulfate) 8.5 Gm Hfa.aer.ad 1 Puff INH PRN Q6HRS PRN 06/22/16 Reported Vitamin C (Ascorbic Acid) 500 Mg Tablet.er 500 Mg PO DAILY 06/22/16 Reported Zinc Lozenges (Vit A Acet/Vit C/Znox/Propolis) 1 Each Lozenge 1 Each PO DAILY 06/22/16 Reported Oxycodone Hcl 5 Mg Tablet 5 Mg PO Q4HRS PRN 06/22/16 Reported Humalog (Insulin Lispro) 100 Unit/1 Ml Insuln.pen 10 Unit SQ TIDAC 04/20/15 Reported Lantus (Insulin Glargine,Hum.rec.anlog) 100 Unit/1 Ml Vial 38 Unit SQ HS 04/20/15 Reported Alprazolam 1 Mg Tablet 0.5 Tab PO TID PRN 04/20/15 Reported Metformin Hcl 500 Mg Tablet 1 Tab PO BID 04/20/15 Reported Colace (Docusate Sodium) 100 Mg Capsule 1 Cap PO BID 04/20/15 Reported Rizatriptan (Rizatriptan Benzoate) 5 Mg Tablet 5 Mg PO DAILY PRN 04/20/15 Reported Topiramate 200 Mg Tablet 200 Mg PO HS PRN 04/20/15 Reported Promethazine Hcl 25 Mg Tablet 1 Tab PO PRN Q4HRS PRN 04/20/15 Reported Losartan Potassium 100 Mg Tablet 1 Tab PO DAILY 04/20/15 Reported Gabapentin 300 Mg Capsule 1 Cap PO BID 04/20/15 Reported Levothyroxine Sodium 75 Mcg Tablet 1 Tab PO DAILY 04/20/15 Reported [place] 10-325 Tablet (Acetaminophen/Hydrocodone Bitart) 1 Each Tablet 1-2 Tab PO Q4-6HRS 04/20/15 Reported Impression . 1. partial SBO/ improvement 2. Bronchitis/Aspiration pneumonia/ stable 3. Morbid Obesity 4. Chronic Hypoxemic Respiratory Failure - home oxygen at 3.5 L nasal cannula. 5. suspected CANDACE/OHS 6. UTI klebsiella - res to Amp/Pip 12/02. Blood cult 12/02 - neg 7. RUE fracture about 7 weeks ago 8. DM 9. Pickwickian syndrome Plan . 1. Continue supportive care 2. Abx per ID: 3. Influenza Neg 4. Continue bronchodilators. 5. Discussed evaluation for CANDACE, however refuses evaluation and would not wear NIPPV device. 6. Aspiration precautions - Keep head of the bed elevated to minimize any acid aspiration. 7. Management of small bowel obstruction per PCP and GI. 8. Weight loss was strongly emphasized to the patient. 9. Incentive spirometry. 10. no further recommendations. awaiting placement MITA ASHLEY MD Dec 19, 2016 10:27
[2016-12-19 11:00] VITALS: BP_SYST 150
--- NOTE | 2016-12-19 12:40 | RAD ---
EXAM: Chest, single view. HISTORY: Shortness of breath. COMPARISON: 11/28/2016. FINDINGS: A frontal view of the chest is obtained. There is increased central predominant interstitial opacity likely due to congestion. There is no effusion or pneumothorax. The heart is normal in size for portable technique. There is a left internal jugular catheter with the tip in the superior vena cava. Air is a left shoulder arthroplasty and there is internal fixation of the proximal right humerus. IMPRESSION: Bilateral central predominant interstitial infiltrate likely due to congestion.
[2016-12-19 13:56] LABS: FIO2 ABG 32; HCO3 ABG 29 mmol/L (21-28); PCO2 ABG 44 mmHg (35-46); PH ABG 7.44 (7.35-7.45); PO2 ABG 90 mmHg (65-108); SAT O2 ABG 95 % (92-99)
[2016-12-19 15:00] VITALS: BP 180/88
[2016-12-19] MEDS ORDERED: FUROSEMIDE 20 MG/2 ML VIAL IVP ONE (15:45)
[2016-12-19 19:00] VITALS: BP 165/88
[2016-12-19] MEDS: INSULIN DETEMIR 300 UNITS/3 ML INSULN.PEN. SQ SCH (20:30)
[2016-12-19 23:00] VITALS: BP 107/37
--- NOTE | 2016-12-20 00:35 | PN ---
DATE: 12/19/2016 SUBJECTIVE: The patient is resting, slightly propped up, clearly markedly tachypneic. She continued to have recurrent bouts of cough that seem to be moist, but is unable to expectorate. She is on 3 liters of oxygen with oxygen saturation at 95%. PHYSICAL EXAMINATION: GENERAL: When I examined her this morning, she was pale, but no jaundice, cyanosis or thyromegaly. No jugular venous distention. No limb edema. VITAL SIGNS: Her heart rate was 107, blood pressure was 150/66, temperature was 98.1, respiratory rate was 28 and oxygen saturation was 95% on 3 liters of oxygen. HEAD, EYES, EARS, NOSE AND THROAT: Showed normocephalic, atraumatic. NECK: Supple. HEART: Showed normal first and second heart sounds with no gallop, rub or murmur. CHEST: Shows central trachea, equally reduced expansion, reduced air entry, vesicular sounds, bilateral scattered rhonchi as well as crepitation mostly on the right side. ABDOMEN: Distended, soft, nontender. No guarding or rigidity. No organomegaly. Hernial orifices intact. Bowel sounds normal. NEUROLOGIC: She was awake, alert, responding appropriately. Cranial nerves intact. She moves her upper extremities to much closer extent than her right upper extremity as she has right humeral fracture treated with open reduction internal fixation. She is now in a sling. She is mostly bedbound, chair bound. Her intake over the last 24 hours was 1200, output was 500. LABORATORY DATA: As of this morning showed a serum sodium 146, potassium 4.3, chloride 111, bicarbonate 30, anion gap of 5, BUN 7, creatinine 0.7, estimated GFR was 82 mL per minute. Her glucose was 74 and calcium was 7.8. Her H and H this morning was 7.9 and hematocrit was 25.1. ASSESSMENT: 1. Small-bowel obstruction versus paralytic ileus improved, pneumonia as well as urinary tract infection, treated with IV Flagyl, levofloxacin and tigecycline, all her antibiotics were discontinued. She is afebrile, hemodynamically stable with normal white cell count. 2. Morbid obesity, obstructive sleep apnea. 3. Type 2 diabetes mellitus that is much better controlled after we discontinued her IV fluid. 4. Right humeral fracture, status post open reduction and internal fixation, healing with callus formation. The alignment of the bones in the right upper extremity is maintained. She was evaluated by orthopedic surgeon who recommended starting physical therapy ____ swollen the right upper extremity, however, the venous Doppler ultrasound was negative for deep vein thrombosis. 5. She has had chronic bilateral venous stasis ulcer with recurrent bilateral lower extremity cellulitis. PLAN: My plan is to arrange for her to have a chest x-ray and arterial blood gases, repeat her labs tomorrow and if everything is stable, we can discharge her once a place becomes available. MICHELLE CRESPO MD DR: JARON/binta JOB#: [id number] / [id number]
[2016-12-20] MEDS: HYDROMORPHONE 2 MG/ML VIAL. IV PRN ×5 (02:15→16:24)
[2016-12-20 03:00] VITALS: BP 147/72
[2016-12-20 05:25] LABS: BASO # 0.1 x10^3/uL (0.0-0.2); BASO % 1 % (0-3); EOS % 4 % (0-3); HEMATOCRIT 26.1 % (36.0-47.0); HEMOGLOBIN 8.2 g/dL (12.0-15.5); LYMPH # 2.1 x10^3/uL (1.0-4.8); LYMPH % 24 % (24-48); MEAN CORPUSCULAR HEMOGLOBIN 27 pg (25-35); MEAN CORPUSCULAR HGB CONC 32 g/dL (31-37); MEAN CORPUSCULAR VOLUME 86 fL (79-100); MONO % 9 % (0-9); NEUT % 63 % (31-73); PLATELET COUNT 341 x10^3/uL (140-400); RED BLOOD COUNT 3.05 x10^6/uL (3.50-5.40)
[2016-12-20] MEDS: LEVOTHYROXINE 75 MCG TABLET PO SCH (05:29)
[2016-12-20] MEDS: NYSTATIN TOPICAL POWDER 15GM BOTTLE. TP SCH ×2 (05:30→12:06)
[2016-12-20 06:02] LABS: ALBUMIN 1.7 g/dL (3.4-5.0); ALBUMIN/GLOBULIN RATIO 0.4 (1.0-1.7); CALCIUM 7.9 mg/dL (8.5-10.1); CREATININE 0.8 mg/dL (0.6-1.0); GFR 70.5; TOTAL BILIRUBIN 0.3 mg/dL (0.2-1.0); TOTAL PROTEIN 5.9 g/dL (6.4-8.2)
[2016-12-20 07:00] VITALS: BP 182/97
[2016-12-20] MEDS: INSULIN ASPART 300 UNITS/3 ML INSULN.PEN SQ SCH ×2 (07:30→12:17)
[2016-12-20] MEDS: POTASSIUM CHLORIDE 20 MEQ TABLET.ER. PO SCH ×2 (08:02→12:29)
[2016-12-20] MEDS: GUAIFENESIN ER 600 MG TABLET.ER PO SCH (08:02)
[2016-12-20] MEDS: IPRATRPIUM/ALBUTEROL 0.5/2.5MG 3 ML NEBU. NEB SCH ×2 (08:41→11:47)
[2016-12-20] MEDS: HEPARIN PF for SUB-Q USE 5,000 UNIT/0.5 ML VIAL. SQ SCH (08:52)
[2016-12-20 11:00] VITALS: BP 114/88
--- NOTE | 2016-12-20 12:05 | PDOC ---
PULMONARY PROGRESS NOTES Subjective pt sleepy not more soa Vitals Vital Signs Date Time Temp Pulse Resp B/P Pulse Ox O2 Delivery O2 Flow Rate FiO2 12/20/16 11:47 Nasal Cannula 3.0 12/20/16 11:00 97.6 108 20 114/88 97 97.6 ROS: No Nausea, No Chest Pain, No Abdominal Pain, No Increase Cough General: Alert, No acute distress Lungs: Clear Cardiovascular: S1, S2 Abdomen: Soft, Non-tender, Other (obese) Neuro Exam: Alert, Oriented, Normal Speech Extremities: No Edema, Other (+ edema) Skin: Warm, Dry Labs Laboratory Tests Test 12/18/16 15:20 12/18/16 16:28 12/18/16 21:11 12/19/16 07:45 Clostridium difficile Toxin (PCR) Negative (Negative) Glucose (Fingerstick) 180mg/dL (70-99) 194mg/dL (70-99) 90mg/dL (70-99) Test 12/19/16 09:15 12/19/16 11:47 12/19/16 13:45 12/19/16 16:52 Hemoglobin 7.9g/dL (12.0-15.5) Hematocrit 25.1% (36.0-47.0) Sodium Level 146mmol/L (136-145) Potassium Level 4.3mmol/L (3.5-5.1) Chloride Level 111mmol/L (98-107) Carbon Dioxide Level 30mmol/L (21-32) Anion Gap 5 (6-14) Blood Urea Nitrogen 7mg/dL (7-20) Creatinine 0.7mg/dL (0.6-1.0) Estimated GFR (Cockcroft-Gault) 82.3 Glucose Level 74mg/dL (70-99) Calcium Level 7.8mg/dL (8.5-10.1) Glucose (Fingerstick) 100mg/dL (70-99) 172mg/dL (70-99) O2 Saturation 95% (92-99) Arterial Blood pH 7.44 (7.35-7.45) Arterial Blood pCO2 at Patient Temp 44mmHg (35-46) Arterial Blood pO2 at Patient Temp 90mmHg (65-108) Arterial Blood HCO3 29mmol/L (21-28) Arterial Blood Base Excess 5mmol/L (-3-3) FiO2 32 Test 12/19/16 20:24 12/20/16 04:49 12/20/16 07:25 12/20/16 11:27 Glucose (Fingerstick) 183mg/dL (70-99) 175mg/dL (70-99) 188mg/dL (70-99) White Blood Count 9.0x10^3/uL (4.0-11.0) Red Blood Count 3.05x10^6/uL (3.50-5.40) Hemoglobin 8.2g/dL (12.0-15.5) Hematocrit 26.1% (36.0-47.0) Mean Corpuscular Volume 86fL (79-100) Mean Corpuscular Hemoglobin 27pg (25-35) Mean Corpuscular Hemoglobin Concent 32g/dL (31-37) Red Cell Distribution Width 20.0% (11.5-14.5) Platelet Count 341x10^3/uL (140-400) Neutrophils (%) (Auto) 63% (31-73) Lymphocytes (%) (Auto) 24% (24-48) Monocytes (%) (Auto) 9% (0-9) Eosinophils (%) (Auto) 4% (0-3) Basophils (%) (Auto) 1% (0-3) Neutrophils # (Auto) 5.6x10^3uL (1.8-7.7) Lymphocytes # (Auto) 2.1x10^3/uL (1.0-4.8) Monocytes # (Auto) 0.8x10^3/uL (0.0-1.1) Eosinophils # (Auto) 0.3x10^3/uL (0.0-0.7) Basophils # (Auto) 0.1x10^3/uL (0.0-0.2) Sodium Level 142mmol/L (136-145) Potassium Level 5.0mmol/L (3.5-5.1) Chloride Level 107mmol/L (98-107) Carbon Dioxide Level 31mmol/L (21-32) Anion Gap 4 (6-14) Blood Urea Nitrogen 6mg/dL (7-20) Creatinine 0.8mg/dL (0.6-1.0) Estimated GFR (Cockcroft-Gault) 70.5 BUN/Creatinine Ratio 8 (6-20) Glucose Level 174mg/dL (70-99) Calcium Level 7.9mg/dL (8.5-10.1) Total Bilirubin 0.3mg/dL (0.2-1.0) Aspartate Amino Transf (AST/SGOT) 14U/L (15-37) Alanine Aminotransferase (ALT/SGPT) 14U/L (14-59) Alkaline Phosphatase 130U/L (46-116) Total Protein 5.9g/dL (6.4-8.2) Albumin 1.7g/dL (3.4-5.0) Albumin/Globulin Ratio 0.4 (1.0-1.7) Laboratory Tests Test 12/19/16 13:45 12/19/16 16:52 12/19/16 20:24 12/20/16 04:49 O2 Saturation 95% (92-99) Arterial Blood pH 7.44 (7.35-7.45) Arterial Blood pCO2 at Patient Temp 44mmHg (35-46) Arterial Blood pO2 at Patient Temp 90mmHg (65-108) Arterial Blood HCO3 29mmol/L (21-28) Arterial Blood Base Excess 5mmol/L (-3-3) FiO2 32 Glucose (Fingerstick) 172mg/dL (70-99) 183mg/dL (70-99) White Blood Count 9.0x10^3/uL (4.0-11.0) Red Blood Count 3.05x10^6/uL (3.50-5.40) Hemoglobin 8.2g/dL (12.0-15.5) Hematocrit 26.1% (36.0-47.0) Mean Corpuscular Volume 86fL (79-100) Mean Corpuscular Hemoglobin 27pg (25-35) Mean Corpuscular Hemoglobin Concent 32g/dL (31-37) Red Cell Distribution Width 20.0% (11.5-14.5) Platelet Count 341x10^3/uL (140-400) Neutrophils (%) (Auto) 63% (31-73) Lymphocytes (%) (Auto) 24% (24-48) Monocytes (%) (Auto) 9% (0-9) Eosinophils (%) (Auto) 4% (0-3) Basophils (%) (Auto) 1% (0-3) Neutrophils # (Auto) 5.6x10^3uL (1.8-7.7) Lymphocytes # (Auto) 2.1x10^3/uL (1.0-4.8) Monocytes # (Auto) 0.8x10^3/uL (0.0-1.1) Eosinophils # (Auto) 0.3x10^3/uL (0.0-0.7) Basophils # (Auto) 0.1x10^3/uL (0.0-0.2) Sodium Level 142mmol/L (136-145) Potassium Level 5.0mmol/L (3.5-5.1) Chloride Level 107mmol/L (98-107) Carbon Dioxide Level 31mmol/L (21-32) Anion Gap 4 (6-14) Blood Urea Nitrogen 6mg/dL (7-20) Creatinine 0.8mg/dL (0.6-1.0) Estimated GFR (Cockcroft-Gault) 70.5 BUN/Creatinine Ratio 8 (6-20) Glucose Level 174mg/dL (70-99) Calcium Level 7.9mg/dL (8.5-10.1) Total Bilirubin 0.3mg/dL (0.2-1.0) Aspartate Amino Transf (AST/SGOT) 14U/L (15-37) Alanine Aminotransferase (ALT/SGPT) 14U/L (14-59) Alkaline Phosphatase 130U/L (46-116) Total Protein 5.9g/dL (6.4-8.2) Albumin 1.7g/dL (3.4-5.0) Albumin/Globulin Ratio 0.4 (1.0-1.7) Test 12/20/16 07:25 12/20/16 11:27 Glucose (Fingerstick) 175mg/dL (70-99) 188mg/dL (70-99) Medications Active Scripts Medications Dose Route/Sig Days Date Category Mupirocin Ointment (Mupirocin) 22 Gm Oint...g. 1 Faheem TP TID 09/17/16 Reported Doxycycline Hyclate 100 Mg Capsule 100 Mg PO BID 09/17/16 Reported Oxybutynin Chloride 5 Mg Tablet 5 Mg PO HS 8/2/16 Reported Myrbetriq (Mirabegron) 50 Mg Tab.er.24h 50 Mg PO HS 06/22/16 Reported Melatonin 5 Mg Tablet 5 Mg PO HS 06/22/16 Reported Advair 250-50 Diskus (Fluticasone/Salmeterol) 1 Each Disk.w.dev 1 Inh IH BID 06/22/16 Reported Proair Hfa Inhaler (Albuterol Sulfate) 8.5 Gm Hfa.aer.ad 1 Puff INH PRN Q6HRS PRN 06/22/16 Reported Vitamin C (Ascorbic Acid) 500 Mg Tablet.er 500 Mg PO DAILY 06/22/16 Reported Zinc Lozenges (Vit A Acet/Vit C/Znox/Propolis) 1 Each Lozenge 1 Each PO DAILY 06/22/16 Reported Oxycodone Hcl 5 Mg Tablet 5 Mg PO Q4HRS PRN 06/22/16 Reported Humalog (Insulin Lispro) 100 Unit/1 Ml Insuln.pen 10 Unit SQ TIDAC 04/20/15 Reported Lantus (Insulin Glargine,Hum.rec.anlog) 100 Unit/1 Ml Vial 38 Unit SQ HS 04/20/15 Reported Alprazolam 1 Mg Tablet 0.5 Tab PO TID PRN 04/20/15 Reported Metformin Hcl 500 Mg Tablet 1 Tab PO BID 04/20/15 Reported Colace (Docusate Sodium) 100 Mg Capsule 1 Cap PO BID 04/20/15 Reported Rizatriptan (Rizatriptan Benzoate) 5 Mg Tablet 5 Mg PO DAILY PRN 04/20/15 Reported Topiramate 200 Mg Tablet 200 Mg PO HS PRN 04/20/15 Reported Promethazine Hcl 25 Mg Tablet 1 Tab PO PRN Q4HRS PRN 04/20/15 Reported Losartan Potassium 100 Mg Tablet 1 Tab PO DAILY 04/20/15 Reported Gabapentin 300 Mg Capsule 1 Cap PO BID 04/20/15 Reported Levothyroxine Sodium 75 Mcg Tablet 1 Tab PO DAILY 04/20/15 Reported Viola 10-325 Tablet (Acetaminophen/Hydrocodone Bitart) 1 Each Tablet 1-2 Tab PO Q4-6HRS 04/20/15 Reported Impression . 1. partial SBO/ improvement 2. Bronchitis/Aspiration pneumonia 3. Morbid Obesity 4. Chronic Hypoxemic Respiratory Failure - home oxygen at 3.5 L nasal cannula. 5. suspected CANDACE/OHS 6. UTI klebsiella - res to Amp/Pip 12/02. Blood cult 12/02 - neg 7. RUE fracture about 7 weeks ago 8. DM 9. Pickwickian syndrome Plan . will check ABG cxr pending 1. Continue supportive care 2. Abx per ID: 3. Influenza Neg 4. Continue bronchodilators. 5. Discussed evaluation for CANDACE, however refuses evaluation and would not wear NIPPV device. 6. Aspiration precautions DEAN LAM MD Dec 20, 2016 12:05
[2016-12-20] MEDS ORDERED: ACET650S11 RC (16:01)
[2016-12-20] MEDS ORDERED: ALPR1TAB6 PO (16:01)
[2016-12-20] MEDS ORDERED: BISA10SU2 RC (16:05)
[2016-12-20] MEDS ORDERED: GUAI600T28 PO (16:06)
[2016-12-20] MEDS ORDERED: INSU100C4 SQ (16:09)
[2016-12-20] MEDS ORDERED: INSU100V13 SQ (16:10)
[2016-12-20] MEDS ORDERED: NYST1POW5 MC (16:12)
[2016-12-20] MEDS ORDERED: OXYC5TAB88 PO (16:12)
[2016-12-20] MEDS ORDERED: POTA20TA82 PO (16:14)
[2016-12-20] MEDS ORDERED: HEPARIN PF 500 UNIT/5 ML DISP.SYRIN. IV ONE (16:15)
[2016-12-20] MEDS: ALPRAZOLAM 1 MG TABLET PO PRN (16:28)
--- NOTE | 2016-12-20 18:08 | PN ---
DATE: 12/20/2016 SUBJECTIVE: The patient is resting, slightly propped up in bed, in no apparent respiratory distress. She was sleepy, but arousable. On questioning her, she continues to complain of pain, although the shortness of breath is much better. We did actually ordered Lasix yesterday 20 mg. She did have good urine output. PHYSICAL EXAMINATION: GENERAL: When I examined her, she looked well and was clearly in no apparent respiratory distress, slightly pale, but no jaundice, cyanosis or thyromegaly. No jugular venous distention. No limb edema. VITAL SIGNS: Her heart rate was 109, blood pressure was 147/72, temperature was 98.2, respiratory rate 20, and oxygen saturation was 95% on 3 liters of oxygen. HEAD, EYES, EARS, NOSE AND THROAT: Showed normocephalic, atraumatic. NECK: Supple. HEART: Showed normal first and second heart sounds with no gallop, rub or murmur. CHEST: Clear to auscultation. No crepitation or rhonchi. ABDOMEN: Markedly distended, soft with no guarding or rigidity. No organomegaly. Hernial orifices intact. Bowel sounds normal. NEUROLOGIC: She is awake, alert. All her cranial nerves intact. She moves left upper extremity to much greater extent than the right upper extremity. She is mostly bedbound, chair bound. Her intake over the last 24 hours was 1550, output 1575. LABORATORY DATA: Her white cell count was 9000, hemoglobin 8.2, hematocrit 26.1, MCV 86 and platelet count 341,000. Her serum sodium was 142, potassium ____, chloride 107, bicarbonate 31, anion gap of 4, BUN 6, creatinine 0.8, estimated GFR was 70 mL per minute. Her glucose 174, calcium was 7.9. Total bilirubin, AST, ALT were normal. Alkaline phosphatase slightly elevated. Total protein was 5.9, albumin was 1.7. Blood gas yesterday showed a pH of 7.44, pCO2 of 44, pO2 of 90, bicarbonate of 29, oxygen saturation was 95% on FiO2 of 32%. ASSESSMENT: 1. Small-bowel obstruction versus paralytic ileus improved. The patient had multiple bowel movements and passing flatus. 2. Pneumonia as well as urinary tract infection, treated with IV Flagyl, levofloxacin and tigecycline. All her antibiotics were discontinued. She is now afebrile and hemodynamically stable with normal white cell count. 3. Morbid obesity, obstructive sleep apnea. 4. Type 2 diabetes, which is much better controlled. 5. Right humerus fracture, status post open reduction and internal fixation healing with callus formation, with alignment of the bones in the right upper extremity is well maintained. 6. The patient had chronic bilateral venous stasis ulcer with recurrent bilateral lower extremity cellulitis. PLAN: To discharge the patient if she is accepted at [facility] or [facility]. MICHELLE CRESPO MD DR: JARON/binta JOB#: [id number] / [id number]
--- NOTE | 2016-12-21 14:10 | DS ---
DATE OF DISCHARGE: 12/20/2016 HOSPITAL COURSE: The patient is a 71-year-old old female patient who was transferred from [facility] originally with bowel obstruction that was treated conservatively. The patient refused to have an NG tube and was adamantly refusing any surgical intervention. Luckily, her bowel obstruction resolved conservatively and she has had multiple bowel movements. She has had no further episodes of nausea, vomiting. While at [facility], she was diagnosed with pneumonia and urinary tract infection for which she was on antibiotic and was followed by Infectious Disease specialist. She was seen by the general surgeon, b2b account executive as well as orthopedic surgeon. She did very well. We advanced her diet and she completed her antibiotic treatment and she was seen by the orthopedic surgeon and her fracture of the right humerus seems to be healing well with callus formation and the alignment of the right upper extremity bones was maintained. Decision was made to discharge her to [facility] to continue the post-rehabilitation. PHYSICAL EXAMINATION GENERAL: When I saw her on the day of discharge, she was resting slightly propped up in bed, in no apparent respiratory distress. She was pale, but no jaundice, cyanosis, or thyromegaly. No jugular venous distension. No limb edema. VITAL SIGNS: Her heart rate was 108, blood pressure 114/88, temperature was 97.6, respiratory rate was 20, and oxygen saturation was 97% on 3 liters of oxygen. HEAD, EYES, EARS, NOSE AND THROAT: Showed normocephalic, atraumatic. NECK: Supple. HEART: Showed normal first and second heart sounds with no gallop, rub or murmur. CHEST: Showed central trachea, equal bilateral expansion, air entry is constant, no crepitation or rhonchi. ABDOMEN: Markedly distended, soft, nontender. No guarding or rigidity. No organomegaly. Hernial orifices intact. Bowel sounds normal. NEUROLOGIC: She was awake, alert, responding appropriately. Cranial nerves intact. She moves left upper extremity to much good extent than her right lower extremity. She is mostly bedbound, chair bound. Her intake over the last 24 hours was 1650, output was 1575. MOST RECENT LAB WORK: Showed that her white cell count was 9000, hemoglobin 8.2, hematocrit 26, MCV 86 and platelet count of 341,000. Her chemistry showed a serum sodium 142, potassium 5, chloride 107, bicarbonate 31, anion gap of 4, BUN 6, creatinine 0.8, estimated GFR was 70 mL per minute. Her glucose was 174, calcium was 7.9. Total bilirubin, AST, ALT were normal. Alkaline phosphatase slightly elevated. Total protein was 5.9, albumin was 1.7. Her blood gases showed a pH of 7.44, pCO2 of 44, pO2 90, bicarbonate 29 and oxygen saturation was 95% and FiO2 of 32%. ASSESSMENT: 1. Small-bowel obstruction versus ileus, resolved. The patient had multiple bowel movements, passing gas and tolerating food without difficulty. 2. Pneumonia, urinary tract infection, treated with IV Flagyl and levofloxacin and doxycycline, all her antibiotics were discontinued. Now, she is afebrile, hemodynamically stable with normal white cell count. 3. Morbid obesity, obstructive sleep apnea. 4. Type 2 diabetes, which is much better controlled now. 5. Right humerus fracture, status post open reduction and internal fixation, healing with callus formation with maintained alignment of the bones of right upper extremity. 6. The patient had chronic bilateral venous stasis ulcer with recurrent bilateral lower extremity cellulitis. MICHELLE CRESPO MD DR: JARON/binta JOB#: [id number] / [id number]
== END 2016-12-20 16:24 | DRG 871 ==
LOC: 5 SOUTH 20:45
PROVIDERS: ADMIT Internal Medicine; ATTEND Internal Medicine
PROC: 05HN33Z Insertion of Infusion Device into Left Internal Jugular Vein, Percutaneous Approach (ICD-10-PCS; principal; 2016-12-09)
PROC: B548ZZA Ultrasonography of Superior Vena Cava, Guidance (ICD-10-PCS; 2016-12-09)
PROC: B5181ZA Fluoroscopy of Superior Vena Cava using Low Osmolar Contrast, Guidance (ICD-10-PCS; 2016-12-09)
DX: A41.9 Sepsis, unspecified organism (principal); J69.0 Pneumonitis due to inhalation of food and vomit; E43 Unspecified severe protein-calorie malnutrition; K56.7 Ileus, unspecified; N39.0 Urinary tract infection, site not specified; E66.2 Morbid (severe) obesity with alveolar hypoventilation; J96.11 Chronic respiratory failure with hypoxia; L03.115 Cellulitis of right lower limb; L03.116 Cellulitis of left lower limb; L97.909 Non-pressure chronic ulcer of unspecified part of unspecified lower leg with unspecified severity; Z68.43 Body mass index [BMI] 50.0-59.9, adult; E11.622 Type 2 diabetes mellitus with other skin ulcer; E78.5 Hyperlipidemia, unspecified; G89.4 Chronic pain syndrome; I10 Essential (primary) hypertension; J44.9 Chronic obstructive pulmonary disease, unspecified; K59.03 Drug induced constipation; D72.829 Elevated white blood cell count, unspecified; B96.1 Klebsiella pneumoniae [K. pneumoniae] as the cause of diseases classified elsewhere; I83.009 Varicose veins of unspecified lower extremity with ulcer of unspecified site; D64.9 Anemia, unspecified; T40.2X5A Adverse effect of other opioids, initial encounter; Y95 Nosocomial condition; F32.9 Major depressive disorder, single episode, unspecified; F41.9 Anxiety disorder, unspecified; Z88.0 Allergy status to penicillin; Z88.1 Allergy status to other antibiotic agents; Z88.2 Allergy status to sulfonamides; Z98.84 Bariatric surgery status; Z99.81 Dependence on supplemental oxygen; Z88.6 Allergy status to analgesic agent; Z88.8 Allergy status to other drugs, medicaments and biological substances
CPT/HCPCS: 36415; 36558; 36600; 71010; 73060; 73070; 73090; 73502; 75820; 76937; 77001; 80048; 80053; 82728; 82805; 82947; 83540; 83550; 84443; 85007; 85014; 85018; 85027; 87324; 87804; 90686; 93971; 94250; 94640; 94760; C1713; C1751; C1892; J1170; J1756; J1815; J1956; J2405; J2997; J3010; J3243; J3490; J7050; J7620; 97110; 97116; 97530; 97535; J7030

== ENCOUNTER 2018-12-12 10:32 | Inpatient (IN) | payer MEDICARE ==
[~2018-12-12] VITALS: Ht 142.2 cm; Wt 122.2 kg
[2018-12-12] VITALS (17 sets, daily range): BP systolic 74–180; BP diastolic 37–94
[~2018-12-12 10:32] MED LIST changes: +ACET650S11 RC; +ALBU2.5V8 INH; +ASCO-72 PO; -ASCO500T25 PO; +BISA10SU4 RC; +DOCU-109 PO; -DOCU-27 PO; -GABA-586 PO; +GABA300C18 PO; +GUAI600T79 PO; +HYDR-3135 PO; -HYDR-963 PO; +INSU100C4 SQ; +INSU100V13 SQ; -LANS30CA17 PO; +LANS30CA66 PO; +LOSA100T14 PO; -LOSA100T6 PO; +METF500T16 PO; -METF500T4 PO; +NYST1POW5 MC; -OXYC10TA32 PO; +OXYC10TA46 PO; -OXYC5TAB PO; +OXYC5TAB4 PO; +OXYC5TAB88 PO; +POTA20TA82 PO; -PROAIR HFA8.5 GM INH
[2018-12-12] MEDS ORDERED: MAG HYDROX/ALUMINUM HYD/SIMETH 30 ML ORAL.SUSP PO PRN (12:15)
[2018-12-12] MEDS ORDERED: CALCIUM CARBONATE 500 MG TAB.CHEW PO PRN (12:15)
[2018-12-12] MEDS ORDERED: PROCHLORPERAZINE 25 MG SUPP.RECT. PR PRN (12:15)
[2018-12-12] MEDS ORDERED: BISACODYL 10 MG SUPP.RECT. PR PRN (12:15)
[2018-12-12] MEDS ORDERED: ACETAMINOPHEN 325 MG TABLET. PO PRN (12:15)
[2018-12-12] MEDS ORDERED: MAGNESIUM HYDROXIDE 2,400 MG/30 ML ORAL.SUSP. PO PRN (12:15)
[2018-12-12] MEDS ORDERED: ONDANSETRON PF 4 MG/2 ML VIAL. IV PRN ×2 (12:15→17:30)
[2018-12-12] MEDS ORDERED: ZOLPIDEM 5 MG TABLET. PO PRN (12:15)
[2018-12-12] MEDS: IV NORMAL SALINE 1000ML BAG 1,000 ML IV SCH ×2 (12:15→22:20)
[2018-12-12] MEDS ORDERED: PROCHLORPERAZINE 10 MG/2 ML VIAL. IV PRN ×2 (12:15→14:00)
[2018-12-12] MEDS ORDERED: ALBUTEROL SULFATE 2.5 MG/3 ML NEBU. INH PRN (12:30)
[2018-12-12] MEDS ORDERED: BISACODYL 10 MG SUPP.RECT. RC PRN (12:30)
[2018-12-12] MEDS ORDERED: NOREPINEPHRIN 8MG/250ML PREMIX 250 ML IV PRN ×3 (12:30→18:15)
[2018-12-12] MEDS ORDERED: levOFLOXacin PER PHARMACY. MC PRN (12:30)
[2018-12-12] MEDS ORDERED: ACETAMINOPHEN 650 MG SUPP.RECT. RC PRN (12:30)
--- NOTE | 2018-12-12 12:51 | PDOC1 ---
History and Physical Date of Admission Date of Admission DATE: 12/12/18 TIME: 12:43 Identification/Chief Complaint Chief Complaint Left-sided abdominal pain with wound draining Source Source: Caregiver, Chart review, Patient History of Present Illness History of Present Illness 73-year-old female, full code, resident of [facility], being transferred from [facility] because of septic shock and the source is the left-sided abdominal wound draining foul-smelling, smells of stool. She has history of diabetes, hypertension and bowel obstruction in 2017 which possibly needed OR?. Hard to appreciate scars, she heals well. She was tachycardic, hypotensive at [facility] which responded to fluids temporarily but now in the ICU is hypotensive with a map of 56-59. Started on Levaquin and Flagyl empiric At [facility] bec patient's allergy to penicillin and sulfa. The left abdominal wall is red tender on palpation, but there is no rebound guarding or signs of acute abdomen. Ultrasound does verify may be abscess or phlegmon collection, could be blood too. Seen by GS. We will do a CAT scan, I will start some pressors. ICU care, maintain nothing by mouth. Brasher catheter in with good urine output. Has gotten 4 L of IV fluid but map is now 56. Lactate elevated, leukocytosis. No fevers though. We'll keep nothing by mouth. I did cut back on insulin from 20 units daily at bedtime to 10 units daily at bedtime. Labs again tomorrow morning Discussed with DIRECTOR OF THERAPY SERVICES at bedside and GS FULL code as discussed with family at bedside, symptoms might have started 5 days ago Past Medical History Cardiovascular: HTN, Hyperlipidemia Pulmonary: COPD, Other Psych: Anxiety, Depression Musculoskeletal: Other Endocrine: Diabetes Past Surgical History Past Surgical History: Hernia Repair, Hysterectomy, Other Family History Family History: No Significant, Family History Unknown Social History Smoke: No ALCOHOL: none Drugs: None Current Medications Current Medications Current Medications Ondansetron HCl (Zofran) 4 mg PRN Q6HRS PRN IV NAUSEA/VOMITING; Start 12/12/18 at 12:15 Prochlorperazine Edisylate (Compazine) 10 mg PRN Q6HRS PRN IV NAUSEA/VOMITING; Start 12/12/18 at 12:15 Prochlorperazine (Compazine) 25 mg PRN Q12HR PRN TN NAUSEA/VOMITING; Start at 12:15 Al Hydroxide/Mg Hydroxide (Mylanta Plus Xs) 30 ml PRN Q3HRS PRN PO HEARTBURN / GAS; Start 12/12/18 at 12:15 Calcium Carbonate/ Glycine (Tums) 500 mg PRN Q3HRS PRN PO UPSET STOMACH; Start 12/12/18 at 12:15 Zolpidem Tartrate (Ambien) 5 mg PRN QHS PRN PO INSOMNIA, MAY REPEAT IN 1HR; Start 12/12/18 at 12:15 Oxycodone HCl (Roxicodone) 5 mg PRN Q3HRS PRN PO BREAKTHROUGH PAIN; Start 12/12 at 12:15 Morphine Sulfate (Morphine Sulfate) 2 mg PRN Q2HR PRN IV PAIN; Start 12/12/18 at 12:15 Acetaminophen (Tylenol) 650 mg PRN Q6HRS PRN PO Headaches, Temp > 101.5F; Start 12/12/18 at 12:15 Magnesium Hydroxide (Milk Of Magnesia) 2,400 mg PRN Q12HR PRN PO CONSTIPATION; Start 12/12/18 at 12:15 Bisacodyl (Dulcolax Supp) 10 mg PRN DAILY PRN TN CONSTIPATION; Start 12/12/18 at 12:15; Stop 12/12/18 at 12:26; Status DC Enoxaparin Sodium (Lovenox 40mg Syringe) 40 mg Q24H SQ ; Start 12/12/18 at 13:00 ; Stop 12/12/18 at 13:00; Status DC Sodium Chloride 1,000 ml @ 100 mls/hr Q10H IV ; Start 12/12/18 at 12:15 Famotidine (Pepcid Vial) 20 mg QHS IVP ; Start 12/12/18 at 21:00 Acetaminophen (Tylenol Supp) 650 mg PRN Q6HRS PRN RC FEVER; Start 12/12/18 at 12:30 Albuterol Sulfate (Ventolin Neb Soln) 2.5 mg PRN Q6HRS PRN INH SHORTNESS OF BREATH; Start 12/12/18 at 12:30 Bisacodyl (Dulcolax Supp) 10 mg PRN DAILY PRN RC CONSTIPATION; Start 12/12/18 at 12:30 Insulin Glargine (Lantus) 20 units QHS SQ ; Start 12/12/18 at 21:00 Nystatin (Nystop) 1 ada BID TP ; Start 12/12/18 at 13:00 Norepinephrine Bitartrate 250 ml @ 1.875 mls/ hr CONT PRN IV SEE I/O RECORD; Start 12/12/18 at 12:45; Stop 12/12/18 at 12:45; Status DC Norepinephrine Bitartrate 250 ml @ 1.875 mls/ hr CONT PRN IV SEE I/O RECORD; Start 12/12/18 at 12:30; Status UNV Levofloxacin/ Dextrose (Levaquin Per Pharmacy) 1 each PRN DAILY PRN MC SEE COMMENTS; Start 12/12/18 at 12:30; Status UNV Metronidazole 100 ml @ 100 mls/hr Q8HRS IV ; Start 12/12/18 at 14:00; Status UNV Active Scripts Active Reported Potassium Chloride 20 Meq Tablet.er 20 Meq PO TIDWMEALS Roxicodone (Oxycodone HCl) 5 Mg Tablet 5 Mg PO PRN Q4HRS PRN Nystatin 1 Each Powder.ea. 1 Each MC BID Levemir (Insulin Detemir) 100 Unit/1 Ml Vial 20 Unit SQ HS Novolog (Insulin Aspart) 100 Unit/1 Ml Cartridge 0 SQ QIDACHS Guaifenesin 600 Mg Tablet.er 600 Mg PO BID Bisacodyl 10 Mg Supp.rect 10 Mg RC PRN DAILY PRN Alprazolam 1 Mg Tablet 1 Tab PO TID PRN Acetaminophen Supp (Acetaminophen) 650 Mg Supp.rect 650 Mg RC PRN Q6HRS PRN Proair Hfa Inhaler (Albuterol Sulfate) 8.5 Gm Hfa.aer.ad 1 Puff INH PRN Q6HRS PRN Levothyroxine Sodium 75 Mcg Tablet 1 Tab PO DAILY Allergies Allergies: Coded Allergies: Penicillins (Verified Allergy, Intermediate, 12/08/16) Sulfa (Sulfonamide Antibiotics) (Verified Allergy, Intermediate, 12/08/16) aspirin (Verified Allergy, Intermediate, 12/08/16) cephalexin (Verified Allergy, Intermediate, 04/19/15) diazepam (Verified Allergy, Intermediate, 12/08/16) diphenhydramine (Verified Allergy, Intermediate, 12/08/16) erythromycin base (Verified Allergy, Intermediate, 12/08/16) ROS Review of System left sided abdominal pain-the rest of ROS limited, Physical Exam General: Oriented X3, Cooperative, No acute distress HEENT: Atraumatic, PERRLA Lungs: Clear to auscultation, Normal air movement Heart: S1S2, RRR, no thrills, no rubs, no gallops, no murmurs Cardiovascular: S1, S2 Breasts: Normal, Rt breast nml w/o mass, Lt breast nml w/o mass, Nipples normal Abdomen: Soft, Other (tenderness and redness on the left side, foul-smelling drainage, smells of stool) Rectal Exam: not examined PELVIC: Nml ext genitalia Extremities: No clubbing, No cyanosis, No edema, Normal pulses, No tenderness/ swelling Neuro: Normal gait, Normal speech, Strength at 5/5 X4 ext, Normal tone, Sensation intact, Cranial nerves 3-12 NL, Reflexes 2+ Psych/Mental Status: Mental status NL, Mood NL VTE Prophylaxis Ordered VTE Prophylaxis Devices: Yes VTE Pharmacological Prophylaxi: Yes Assessment/Plan Assessment/Plan Left-sided draining abdominal wound/abscess, stool? - get stat CT Septic shock recalcitrant IV fluid-status post 4 L fluid-levophed now might need PICC line - ID, GS consulted Keep nothing by mouth Maintain Brasher catheter Maintain IVF Pepcid IVF Pain control Labs DVT ppx if no bleed on CT DM 2 -I did cut back on Levemir to half dose since nothing by mouth Hypertension now hypotensive Obesity Hx bowel obstruction 2016 Plan as above Full code Critical care 34 minutes dw DIRECTOR OF THERAPY SERVICES, family and GS MERY DUONG MD Dec 12, 2018 12:51
[2018-12-12] MEDS: ENOXAPARIN 40 MG/0.4 ML SYRINGE. SQ SCH (13:00)
[2018-12-12] MEDS ORDERED: ENOXAPARIN 40 MG/0.4 ML SYRINGE. SQ SCH (13:00)
--- NOTE | 2018-12-12 13:31 | RAD ---
PQRS Compliance statement: One or more of the following individualized dose reduction techniques were utilized for this examination: 1. Automated exposure control. 2. Adjustment of the mA and/or kV according to patient size. 3. Use of iterative reconstruction technique. Indication:Abscess with bowel drainage TECHNIQUE: CT abdomen and pelvis with IV contrast with multiplanar reformats. COMPARISON: None FINDINGS: Heart is normal in size. No pericardial or pleural effusion. Clear lung bases. Liver, spleen, adrenals within normal limits. Pancreas hilar surgically absent or with diffuse fatty atrophy. No nephrolithiasis or hydronephrosis. No enlarged retroperitoneal or pelvic adenopathy. No free pelvic fluid or ascites. Layering gallstones. No pericholecystic inflammatory changes. Partial gastrectomy changes. No bowel obstruction. Left lateral lower abdominal wall hernia is seen with neck of the hernia measuring 5.5 cm with herniation of the focal loop of descending colon. Complex fluid and pockets of air is seen in the hernia sac which is partially imaged due to patient's body habitus. Left lower quadrant ostomy versus another descending colon containing hernia with neck of the hernia measuring 3.4 cm. Large amount of anterolateral abdominal wall emphysema. Urinary bladder is decompressed with Brasher catheter. Status post hysterectomy. No pneumoperitoneum. Mild compression deformity seen of the T10 and L2 vertebral body with no retropulsion the spinal canal. IMPRESSION: Suboptimal evaluation of the left lateral abdominal wall hernia pocket secondary to it being not included in the [id number] due to body habitus. 1. Left lateral lower abdominal wall hernia containing focal loop of descending colon with complex fluid collection in the hernia sac with large amount of emphysema suggesting abscess. 2. Left anterolateral ostomy versus another focal loop of descending colon containing hernia. 3. Mild T10 and L2 compression deformity with no rectal bulge in the spinal canal. 4. Cholelithiasis without imaging evidence of acute cholecystitis. Electronically signed by: Mp Cordero DO (12/12/2018 1:27 PM) [id number]
[2018-12-12] MEDS ORDERED: IV RINGERS,LACTATED 1000ML 1,000 ML IV SCH (13:55)
[2018-12-12] MEDS ORDERED: LIDOCAINE 1% PF 2 ML VIAL. ID PRN (14:00)
[2018-12-12] MEDS ORDERED: HYDROmorphone 2 MG/ML VIAL IV PRN (14:00)
[2018-12-12] MEDS ORDERED: fentaNYL PF VIAL 100 MCG/2 ML VIAL IV PRN ×2 (14:00)
[2018-12-12] MEDS: NYSTATIN TOPICAL POWDER 15GM BOTTLE. TP SCH ×2 (14:11→21:59)
[2018-12-12] MEDS ORDERED: MORPHINE SULFATE 4 MG/ML VIAL. IV PRN (14:15)
[2018-12-12] MEDS: MORPHINE SULFATE 4 MG/ML VIAL. IV PRN (14:25)
[2018-12-12 14:37] LABS: ALBUMIN 1.6 g/dL (3.4-5.0); ALBUMIN/GLOBULIN RATIO 0.3 (1.0-1.7); CALCIUM 8.9 mg/dL (8.5-10.1); GFR 10.9; POTASSIUM 3.7 mmol/L (3.5-5.1); TOTAL BILIRUBIN 0.4 mg/dL (0.2-1.0); TOTAL PROTEIN 6.7 g/dL (6.4-8.2)
[2018-12-12] MEDS ORDERED: TIGECYCLINE 100 MG in IV DEXTROSE 5% 100ML 100 ML IV ONE (15:15)
--- NOTE | 2018-12-12 15:15 | PDOC ---
Infectious Disease Note ROS: ROS Negative except for above. Vital Signs: Vital Signs Vital Signs Date Time Temp Pulse Resp B/P (MAP) Pulse Ox O2 Delivery O2 Flow Rate FiO2 12/12/18 14:25 18 97 Nasal Cannula 2.0 Medications: Inpatient Meds: Current Medications Medications (Trade) Dose Ordered Sig/Kaleb Start Time Stop Time Status Last Admin Dose Admin Acetaminophen (Tylenol Supp) 650 mg PRN Q6HRS PRN 12/12/18 12:30 Acetaminophen (Tylenol) 650 mg PRN Q6HRS PRN 12/12/18 12:15 Al Hydroxide/Mg Hydroxide (Mylanta Plus Xs) 30 ml PRN Q3HRS PRN 12/12/18 12:15 Albuterol Sulfate (Ventolin Neb Soln) 2.5 mg PRN Q6HRS PRN 12/12/18 12:30 Bisacodyl (Dulcolax Supp) 10 mg PRN DAILY PRN 12/12/18 12:30 Calcium Carbonate/ Glycine (Tums) 500 mg PRN Q3HRS PRN 12/12/18 12:15 Enoxaparin Sodium (Lovenox 40mg Syringe) 40 mg Q24H 12/12/18 13:00 Famotidine (Pepcid Vial) 20 mg QHS 12/12/18 21:00 Fentanyl Citrate (Fentanyl 2ml Vial) 50 mcg PRN Q5MIN PRN 12/12/18 14:00 12/13/18 13:59 Hydromorphone HCl (Dilaudid) 0.5 mg PRN Q10MIN PRN 12/12/18 14:00 12/13/18 13:59 Insulin Glargine (Lantus) 10 units QHS 12/12/18 21:00 Levofloxacin/ Dextrose 100 ml @ 100 mls/hr Q24H 12/12/18 13:00 12/12/18 14:11 100 MLS/HR Levofloxacin/ Dextrose (Levaquin Per Pharmacy) 1 each PRN DAILY PRN 12/12/18 12:30 Lidocaine HCl (Xylocaine-Mpf 1% 2ml Vial) 2 ml 1X PRN PRN 12/12/18 14:00 12/13/18 13:59 Magnesium Hydroxide (Milk Of Magnesia) 2,400 mg PRN Q12HR PRN 12/12/18 12:15 Metronidazole 100 ml @ 100 mls/hr Q8HRS 12/12/18 14:00 12/12/18 14:11 100 MLS/HR Morphine Sulfate (Morphine Sulfate) 1 mg PRN Q10MIN PRN 12/12/18 14:15 Norepinephrine Bitartrate 250 ml @ 1.875 mls/ hr CONT PRN 12/12/18 12:30 Nystatin (Nystop) 1 ada BID 12/12/18 13:00 12/12/18 14:11 1 ADA Ondansetron HCl (Zofran) 4 mg PRN Q6HRS PRN 12/12/18 12:15 Oxycodone HCl (Roxicodone) 5 mg PRN Q3HRS PRN 12/12/18 12:15 Prochlorperazine (Compazine) 25 mg PRN Q12HR PRN 12/12/18 12:15 Prochlorperazine Edisylate (Compazine) 5 mg PACU PRN PRN 12/12/18 14:00 12/13/18 13:59 Ringer's Solution 1,000 ml @ 30 mls/hr Q24H 12/12/18 13:55 12/13/18 01:54 Sodium Chloride 1,000 ml @ 100 mls/hr Q10H 12/12/18 12:15 12/12/18 12:15 100 MLS/HR Zolpidem Tartrate (Ambien) 5 mg PRN QHS PRN 12/12/18 12:15 Labs: Lab Laboratory Tests Test 12/12/18 12:36 12/12/18 14:00 Glucose (Fingerstick) 360 mg/dL (70-99) Sodium Level 129 mmol/L (136-145) Potassium Level 3.7 mmol/L (3.5-5.1) Chloride Level 90 mmol/L (98-107) Carbon Dioxide Level 27 mmol/L (21-32) Anion Gap 12 (6-14) Blood Urea Nitrogen 122 mg/dL (7-20) Creatinine 4.0 mg/dL (0.6-1.0) Estimated GFR (Cockcroft-Gault) 10.9 BUN/Creatinine Ratio 31 (6-20) Glucose Level 397 mg/dL (70-99) Calcium Level 8.9 mg/dL (8.5-10.1) Phosphorus Level 3.5 mg/dL (2.6-4.7) Magnesium Level 1.8 mg/dL (1.8-2.4) Total Bilirubin 0.4 mg/dL (0.2-1.0) Aspartate Amino Transf (AST/SGOT) 57 U/L (15-37) Alanine Aminotransferase (ALT/SGPT) 37 U/L (14-59) Alkaline Phosphatase 197 U/L (46-116) Total Protein 6.7 g/dL (6.4-8.2) Albumin 1.6 g/dL (3.4-5.0) Albumin/Globulin Ratio 0.3 (1.0-1.7) Objective: Assessment: Septic shock source intraabdominal abdominal wall abscess with hernia and loops of bowel multiple allergies lactic acidosis dm lt upper ext fracture Plan: Plan of Care cont levaquin and flagyl for now add tigecycline ,has tolerated multiple antibiotics in the past will deescalate soon f/u BC from [facility] f/u labs in f/u cults d/w RN D/W at bedside Thank you [id number] DELGADO PANDEY MD Dec 12, 2018 15:15
[2018-12-12] MEDS ORDERED: fentaNYL PF VIAL 100 MCG/2 ML VIAL ONE (15:37)
[2018-12-12] MEDS ORDERED: ROCURONIUM 50 MG/5 ML VIAL. ONE (15:37)
[2018-12-12] MEDS ORDERED: ONDANSETRON PF 4 MG/2 ML VIAL. ONE (15:49)
[2018-12-12] MEDS ORDERED: KETAMINE HCL IN NACL, ISO-OSM 50 MG/5 ML SYRINGE ONE (15:49)
[2018-12-12] MEDS ORDERED: PROPOFOL 20 ML IV ONE (15:49)
[2018-12-12] MEDS ORDERED: LIDOCAINE 2% PF 5 ML VIAL. ONE (15:49)
[2018-12-12] MEDS ORDERED: PHENYLEPHRINE in 0.9% NACL PF 1 MG/10 ML SYRINGE. IV ONE (15:49)
[2018-12-12] MEDS ORDERED: DEXAMETHASONE SOD PHOS 20 MG/5 ML VIAL. ONE (15:49)
[2018-12-12] MEDS ORDERED: DESFLURANE > 120 MINUTES IH ONE (15:50)
[2018-12-12] MEDS ORDERED: ESMOLOL 100 MG/10 ML VIAL. IV ONE (16:24)
[2018-12-12] MEDS ORDERED: ROCURONIUM 100 MG/10 ML VIAL. ONE (16:28)
[2018-12-12] MEDS ORDERED: PHENYLEPHRINE 10 MG/ML VIAL. ONE (16:41)
[2018-12-12] MEDS ORDERED: SURGICEL HEMOSTAT 4X8 EACH. ONE (16:47)
[2018-12-12] MEDS ORDERED: MIDAZOLAM HCL/PF 5 MG/5 ML VIAL. ONE (17:23)
--- NOTE | 2018-12-12 17:28 | PDOC ---
BRIEF OPERATIVE NOTE Date: Dec 12, 2018 Pre-Op Diagnosis left lower quadrant abdominal wall abscess Post-Op Diagnosis same 2/2 abdominal wall hernia with incarcerated, perforated colon Procedure Performed excisional debridement of skin and subcutaneous fat biopsy colon mass closure colotomy wide drainage of abdominal wall Surgeon Harjit Vault Cashier Jacquelyn COSTA Anesthesia Type: General Blood Loss 50cc IV Fluid 850cc Specimens Obtained colon biopsy Findings incarcerated, perforated loop of colon Complications none RIGO GUALLPA MD Dec 12, 2018 17:28
[2018-12-12] MEDS ORDERED: 0.9 % SODIUM CHLORIDE 10 ML DISP.SYRIN. IV PRN (17:30)
[2018-12-12] MEDS ORDERED: MIDAZOLAM HCL/PF 2 MG/2 ML VIAL. IV PRN (17:30)
--- NOTE | 2018-12-12 17:34 | PDOC2 ---
CONSULT Date of Consult Date of Consult DATE: 12/12/18 TIME: 15:30 Reason for Consult Reason for Consult: LLQ abdominal wall abscess Referring Physician Referring Physician: SHOBHA Identification/Chief Complaint Chief Complaint LLQ pain Source Source: Chart review, Patient History of Present Illness Reason for Visit: Ms Guerrero is a 73 yo morbidly obese lady who lives in an assisted care facility. She presented to the [facility] ED with LLQ pain, hypotension and ARF. She was transferred to [facility] for further assessment and care Past Medical History Cardiovascular: HTN, Hyperlipidemia Pulmonary: COPD, Other Psych: Anxiety, Depression Musculoskeletal: Other Endocrine: Diabetes Past Surgical History Past Surgical History: Hernia Repair, Hysterectomy, Other (gastric bypass) Family History Family History: No Significant, Family History Unknown Social History No ALCOHOL: none Drugs: None Lives: with Family Current Medications Current Medications Current Medications Ondansetron HCl (Zofran) 4 mg PRN Q6HRS PRN IV NAUSEA/VOMITING; Start 12/12/18 at 12:15 Prochlorperazine Edisylate (Compazine) 10 mg PRN Q6HRS PRN IV NAUSEA/VOMITING; Start 12/12/18 at 12:15 Prochlorperazine (Compazine) 25 mg PRN Q12HR PRN ND NAUSEA/VOMITING; Start at 12:15 Al Hydroxide/Mg Hydroxide (Mylanta Plus Xs) 30 ml PRN Q3HRS PRN PO HEARTBURN / GAS; Start 12/12/18 at 12:15 Calcium Carbonate/ Glycine (Tums) 500 mg PRN Q3HRS PRN PO UPSET STOMACH; Start 12/12/18 at 12:15 Zolpidem Tartrate (Ambien) 5 mg PRN QHS PRN PO INSOMNIA, MAY REPEAT IN 1HR; Start 12/12/18 at 12:15 Oxycodone HCl (Roxicodone) 5 mg PRN Q3HRS PRN PO BREAKTHROUGH PAIN; Start 12/12 at 12:15 Morphine Sulfate (Morphine Sulfate) 2 mg PRN Q2HR PRN IV PAIN Last administered on 12/12/18at 14:25; Start 12/12/18 at 12:15 Acetaminophen (Tylenol) 650 mg PRN Q6HRS PRN PO Headaches, Temp > 101.5F; Start 12/12/18 at 12:15 Magnesium Hydroxide (Milk Of Magnesia) 2,400 mg PRN Q12HR PRN PO CONSTIPATION; Start 12/12/18 at 12:15 Bisacodyl (Dulcolax Supp) 10 mg PRN DAILY PRN ND CONSTIPATION; Start 12/12/18 at 12:15; Stop 12/12/18 at 12:26; Status DC Enoxaparin Sodium (Lovenox 40mg Syringe) 40 mg Q24H SQ ; Start 12/12/18 at 13:00 ; Stop 12/12/18 at 13:00; Status DC Sodium Chloride 1,000 ml @ 100 mls/hr Q10H IV Last administered on 12/12/18at 12:15; Start 12/12/18 at 12:15 Famotidine (Pepcid Vial) 20 mg QHS IVP ; Start 12/12/18 at 21:00 Acetaminophen (Tylenol Supp) 650 mg PRN Q6HRS PRN RC FEVER; Start 12/12/18 at 12:30 Albuterol Sulfate (Ventolin Neb Soln) 2.5 mg PRN Q6HRS PRN INH SHORTNESS OF BREATH; Start 12/12/18 at 12:30 Bisacodyl (Dulcolax Supp) 10 mg PRN DAILY PRN RC CONSTIPATION; Start 12/12/18 at 12:30 Insulin Glargine (Lantus) 20 units QHS SQ ; Start 12/12/18 at 21:00; Stop at 21:00; Status DC Nystatin (Nystop) 1 ada BID TP Last administered on 12/12/18at 14:11; Start at 13:00 Norepinephrine Bitartrate 250 ml @ 1.875 mls/ hr CONT PRN IV SEE I/O RECORD; Start 12/12/18 at 12:45; Stop 12/12/18 at 12:45; Status DC Norepinephrine Bitartrate 250 ml @ 1.875 mls/ hr CONT PRN IV SEE I/O RECORD; Start 12/12/18 at 12:30 Levofloxacin/ Dextrose (Levaquin Per Pharmacy) 1 each PRN DAILY PRN MC SEE COMMENTS; Start 12/12/18 at 12:30 Metronidazole 100 ml @ 100 mls/hr Q8HRS IV Last administered on 12/12/18at 14: 11; Start 12/12/18 at 14:00 Insulin Glargine (Lantus) 10 units QHS SQ ; Start 12/12/18 at 21:00 Levofloxacin/ Dextrose 100 ml @ 100 mls/hr Q24H IV Last administered on at 14:11; Start 12/12/18 at 13:00; Stop 12/12/18 at 15:54; Status DC Enoxaparin Sodium (Lovenox 40mg Syringe) 40 mg Q24H SQ ; Start 12/12/18 at 13:00 Fentanyl Citrate (Fentanyl 2ml Vial) 25 mcg PRN Q5MIN PRN IV MILD PAIN; Start 12/12/18 at 14:00; Stop 12/13/18 at 13:59 Fentanyl Citrate (Fentanyl 2ml Vial) 50 mcg PRN Q5MIN PRN IV MODERATE TO SEVERE PAIN; Start 12/12/18 at 14:00; Stop 12/13/18 at 13:59 Morphine Sulfate (Morphine Sulfate) 1 mg PRN Q10MIN PRN IV PAIN; Start at 14:15 Ringer's Solution 1,000 ml @ 30 mls/hr Q24H IV ; Start 12/12/18 at 13:55; Stop 12/13/18 at 01:54 Lidocaine HCl (Xylocaine-Mpf 1% 2ml Vial) 2 ml 1X PRN PRN ID IV START; Start at 14:00; Stop 12/13/18 at 13:59 Hydromorphone HCl (Dilaudid) 0.5 mg PRN Q10MIN PRN IV SEV PAIN, Second choice; Start 12/12/18 at 14:00; Stop 12/13/18 at 13:59 Prochlorperazine Edisylate (Compazine) 5 mg PACU PRN PRN IV NAUSEA, MRX1; Start 12/12/18 at 14:00; Stop 12/13/18 at 13:59 Tigecycline 100 mg/Dextrose 100 ml @ 200 mls/hr 1X ONCE IV ; Start 12/12/18 at 15:15; Stop 12/12/18 at 15:44; Status DC Tigecycline 50 mg/ Dextrose 50 ml @ 100 mls/hr Q12H IV ; Start 12/13/18 at 03: 00 Rocuronium Placentia (Zemuron) 50 mg STK-MED ONCE .ROUTE ; Start 12/12/18 at 15:37 ; Stop 12/12/18 at 15:39; Status DC Fentanyl Citrate (Fentanyl 2ml Vial) 100 mcg STK-MED ONCE .ROUTE ; Start at 15:37; Stop 12/12/18 at 15:39; Status DC Ketamine HCl (Ketamine) 50 mg STK-MED ONCE .ROUTE ; Start 12/12/18 at 15:49; Stop 12/12/18 at 15:51; Status DC Propofol 20 ml @ As Directed STK-MED ONCE IV ; Start 12/12/18 at 15:49; Stop at 15:51; Status DC Lidocaine HCl (Lidocaine Pf 2% Vial) 5 ml STK-MED ONCE .ROUTE ; Start 12/12/18 at 15:49; Stop 12/12/18 at 15:51; Status DC Dexamethasone Sodium Phosphate (Decadron) 20 mg STK-MED ONCE .ROUTE ; Start at 15:49; Stop 12/12/18 at 15:51; Status DC Ondansetron HCl (Zofran) 4 mg STK-MED ONCE .ROUTE ; Start 12/12/18 at 15:49; Stop 12/12/18 at 15:51; Status DC Phenylephrine HCl (PHENYLEPHRINE in 0.9% NACL PF) 1 mg STK-MED ONCE IV ; Start 12/12/18 at 15:49; Stop 12/12/18 at 15:51; Status DC Desflurane (Suprane) 90 ml STK-MED ONCE IH ; Start 12/12/18 at 15:50; Stop 12/12 at 15:52; Status DC Levofloxacin/ Dextrose 100 ml @ 100 mls/hr Q48H IV ; Start 12/13/18 at 16:00 Esmolol HCl (Brevibloc) 100 mg STK-MED ONCE IV ; Start 12/12/18 at 16:24; Stop 12/12/18 at 16:26; Status DC Rocuronium Placentia (Zemuron) 100 mg STK-MED ONCE .ROUTE ; Start 12/12/18 at 16: 28; Stop 12/12/18 at 16:30; Status DC Phenylephrine HCl (Veto-Synephrine Inj) 10 mg STK-MED ONCE .ROUTE ; Start at 16:41; Stop 12/12/18 at 16:43; Status DC Cellulose (Surgicel Hemostat 4x8) 1 each STK-MED ONCE .ROUTE ; Start 12/12/18 at 16:47; Stop 12/12/18 at 16:49; Status DC Propofol 100 ml @ 0 mls/hr CONT PRN IV SEE PROTOCOL; Start 12/12/18 at 17:15 Active Scripts Active Reported Potassium Chloride 20 Meq Tablet.er 20 Meq PO TIDWMEALS Roxicodone (Oxycodone HCl) 5 Mg Tablet 5 Mg PO PRN Q4HRS PRN Nystatin 1 Each Powder.ea. 1 Each MC BID Levemir (Insulin Detemir) 100 Unit/1 Ml Vial 20 Unit SQ HS Novolog (Insulin Aspart) 100 Unit/1 Ml Cartridge 0 SQ QIDACHS Guaifenesin 600 Mg Tablet.er 600 Mg PO BID Bisacodyl 10 Mg Supp.rect 10 Mg RC PRN DAILY PRN Alprazolam 1 Mg Tablet 1 Tab PO TID PRN Acetaminophen Supp (Acetaminophen) 650 Mg Supp.rect 650 Mg RC PRN Q6HRS PRN Proair Hfa Inhaler (Albuterol Sulfate) 8.5 Gm Hfa.aer.ad 1 Puff INH PRN Q6HRS PRN Levothyroxine Sodium 75 Mcg Tablet 1 Tab PO DAILY Allergies Allergies: Coded Allergies: Penicillins (Verified Allergy, Intermediate, 12/08/16) Sulfa (Sulfonamide Antibiotics) (Verified Allergy, Intermediate, 12/08/16) aspirin (Verified Allergy, Intermediate, 12/08/16) cephalexin (Verified Allergy, Intermediate, 04/19/15) diazepam (Verified Allergy, Intermediate, 12/08/16) diphenhydramine (Verified Allergy, Intermediate, 12/08/16) erythromycin base (Verified Allergy, Intermediate, 12/08/16) ROS PSYCHOLOGICAL ROS: YES: Anxiety Gastrointestinal: Yes Abdominal Pain Physical Exam General: Alert, mild distress HEENT: Atraumatic Lungs: Normal air movement Heart: Regular rate Abdomen: Other (obese, there is an area of skin in the LLQ that is perforated and draining fecal material) Vitals VITALS Vital Signs Date Time Temp Pulse Resp B/P (MAP) Pulse Ox O2 Delivery O2 Flow Rate FiO2 12/12/18 15:35 Nasal Cannula 2.0 1/22/19 14:25 18 97 Labs Labs Laboratory Tests Test 12/12/18 12:36 12/12/18 14:00 Glucose (Fingerstick) 360 mg/dL (70-99) Sodium Level 129 mmol/L (136-145) Potassium Level 3.7 mmol/L (3.5-5.1) Chloride Level 90 mmol/L (98-107) Carbon Dioxide Level 27 mmol/L (21-32) Anion Gap 12 (6-14) Blood Urea Nitrogen 122 mg/dL (7-20) Creatinine 4.0 mg/dL (0.6-1.0) Estimated GFR (Cockcroft-Gault) 10.9 BUN/Creatinine Ratio 31 (6-20) Glucose Level 397 mg/dL (70-99) Calcium Level 8.9 mg/dL (8.5-10.1) Phosphorus Level 3.5 mg/dL (2.6-4.7) Magnesium Level 1.8 mg/dL (1.8-2.4) Total Bilirubin 0.4 mg/dL (0.2-1.0) Aspartate Amino Transf (AST/SGOT) 57 U/L (15-37) Alanine Aminotransferase (ALT/SGPT) 37 U/L (14-59) Alkaline Phosphatase 197 U/L (46-116) Total Protein 6.7 g/dL (6.4-8.2) Albumin 1.6 g/dL (3.4-5.0) Albumin/Globulin Ratio 0.3 (1.0-1.7) Laboratory Tests Test 12/12/18 12:36 12/12/18 14:00 Glucose (Fingerstick) 360 mg/dL (70-99) Sodium Level 129 mmol/L (136-145) Potassium Level 3.7 mmol/L (3.5-5.1) Chloride Level 90 mmol/L (98-107) Carbon Dioxide Level 27 mmol/L (21-32) Anion Gap 12 (6-14) Blood Urea Nitrogen 122 mg/dL (7-20) Creatinine 4.0 mg/dL (0.6-1.0) Estimated GFR (Cockcroft-Gault) 10.9 BUN/Creatinine Ratio 31 (6-20) Glucose Level 397 mg/dL (70-99) Calcium Level 8.9 mg/dL (8.5-10.1) Phosphorus Level 3.5 mg/dL (2.6-4.7) Magnesium Level 1.8 mg/dL (1.8-2.4) Total Bilirubin 0.4 mg/dL (0.2-1.0) Aspartate Amino Transf (AST/SGOT) 57 U/L (15-37) Alanine Aminotransferase (ALT/SGPT) 37 U/L (14-59) Alkaline Phosphatase 197 U/L (46-116) Total Protein 6.7 g/dL (6.4-8.2) Albumin 1.6 g/dL (3.4-5.0) Albumin/Globulin Ratio 0.3 (1.0-1.7) Assessment/Plan Assessment/Plan LLQ abscess, 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
--- NOTE | 2018-12-12 17:48 | CONS ---
DATE OF CONSULTATION: 12/12/2018 REFERRING PHYSICIAN: Dr. Anderson. REASON FOR CONSULTATION: Abdominal wall abscess. HISTORY OF PRESENT ILLNESS: A 73-year-old female, transferred from [facility], resident of SNU, because of septic shock and left-sided abdominal wound abscess draining foul smelling odorous drainage. The patient has history of diabetes, hypertension, history of SBO in 2017. She was transferred to [facility] ICU as she was hypotensive requiring fluids and general surgery consultation. She was started on empiric IV Levaquin and Flagyl as SHE HAS MULTIPLE ALLERGIES TO PENICILLIN AND SULFA. CAT scan was done, which shows left lateral lower abdominal wall hernia containing loop of the descending colon with complex fluid collection in the hernia sac with large amount of emphysema suggesting abscess, left anterolateral ostomy versus focal loop of descending colon containing hernia, T10-L2 compression deformity, cholelithiasis without imaging evidence of acute cholecystitis. The patient is seen by General Surgery and I and D is planned for this afternoon and possible exploratory laparotomy with colon resection and colostomy, possible. The patient has been on pressors. A Brasher is placed with good urine output. The patient has elevated lactate with leukocytosis at [facility]. She had onset of all the above symptoms last week, but worsened over the last 3 days. She also has hyponatremia. The patient has a left shoulder fracture with history of fall in October first week. She also has neuropathy from previous surgery and fracture requiring plate insertion on the right shoulder and elbow at . Today, the patient complains of abdominal pain. Denies any cough, shortness of breath. Denies any diarrhea. Denies being on any antibiotics prior to admission. PAST MEDICAL HISTORY: Hypertension, hyperlipidemia, COPD, anxiety, depression, diabetes, status post right humerus fracture, chronic pain syndrome, anxiety, recurrent falls, history of a left humerus fracture, history of Klebsiella urinary tract infections, partial small-bowel obstruction, chronic lower extremity venous stasis with history of previous cellulitis with a type 2. REVIEW OF SYSTEMS: Negative except for above in HPI. PAST SURGICAL HISTORY: Multiple abdominal surgeries. ALLERGIES: PENICILLIN, CEPHALEXIN, SULFA, ALL OF WHICH CAUSE HIVES. She could not remember the last time she took ampicillin or amoxicillin or cephalexin. ERYTHROMYCIN IS LISTED, but she has tolerated, Biaxin, aspirin, Benadryl. The patient has also tolerated tigecycline well in the past. SOCIAL HISTORY: Nonsmoker, . Family at bedside, at bedside. FAMILY HISTORY: As per HPI. CURRENT MEDICATIONS: Levaquin, metronidazole. Other medications reviewed in medication list. PHYSICAL EXAMINATION: VITAL SIGNS: The patient is afebrile,. Vital signs are noted. GENERAL: Alert, awake. The patient in mild distress from abdominal discomfort. HEENT: Normocephalic, atraumatic. Anicteric. LUNGS: Decreased breath sounds at the base, otherwise clear. No wheezing. HEART: S1, S2 with no gallops or murmurs. ABDOMEN: Soft, obese. Bowel sounds present. Erythema, tenderness, blister, foul smelling drainage, left abdominal wall with possible smell of stool. RECTAL: Not done. EXTREMITIES: No edema, no cyanosis. Chronic venous stasis changes present. NEUROLOGIC: Alert. Moves all 4 extremities except for left shoulder, which is in an immobilizer and right shoulder restricted movement from previous injury and neuropathy. PSYCHIATRIC: Affect is appropriate. LABORATORY DATA: CBC from [place] noted Lactate was elevated. Sodium 129, potassium 3.7, chloride 90, bicarbonate 27, BUN 122, creatinine 4.0, glucose 397, calcium 8.9, AST 57, ALT 37, alkaline phosphatase 197, total protein 6.7. IMPRESSION: 1. Septic shock, on pressors. 2. Left abdominal wall abscess, possible enterocutaneous fistula, CT revealing focal loop of descending colon with complex fluid collection in the hernia sac, left lower quadrant 3. Left anterolateral ostomy versus other loop of descending colon containing hernia. 4. History of multiple surgeries. 5. Lactic acidosis from above. 6. Obesity. 7. Diabetes. 8. Right upper extremity peripheral neuropathy. 9. Left upper extremity fracture. 10. Hyponatremia. 11. Protein-calorie malnutrition, present on admission. 12. Abnormal liver function tests. 13. History of multiple allergies RECOMMENDATIONS: 1. For now, continue Levaquin and Flagyl. 2. Will start tigecycline to cover other organisms including MRSA,other MDROs with multiple allergies. 3. The patient is awaiting I and D later this afternoon and possible exploratory laparotomy with bowel resection and colostomy. 4. Follow up labs and cultures. 5. Continue supportive care. 6. Reviewed [place] records. Thank you, Dr. Anderson, for asking me to participate in this patient's care. If you have any questions, do not hesitate to contact me. Discussed with family at bedside. DELGADO PANDEY MD DR: MARK/binta JOB#: [id number] / [id number] ROSETTA
[2018-12-12] MEDS: PROPOFOL 100 ML IV PRN ×2 (17:51→22:54)
--- NOTE | 2018-12-12 18:00 | NUR ---
Nursing Note Pt arrived to ICU room 108 per EMS from [facility] ED. Report received from Norma Wolfe RN. Monitors applied. 2LNC. VSS at this time. Pt admitted with multiple wounds and pressure ulcers that were pictured and wound care consult placed. NS bolus infusing upon arrival into Right upper axilla PIV which was infiltrated at the time. IVFs stopped PIV DC'd. Bolus continued in R Hand PIV. Left lower ABD oozing a bowel smelling fluid from what appears to be a 4in diameter blister. CT ABD/Pelvis ordered. RN transported pt with monitor to CT and back with no issues. Dr. Lombardi has been consulted. Procedure scheduled for approximately 1530. Family aware and consents have been obtained. Dr. Lombardi explained procedure in detail to family and patient. At 1500 Pt taken to OR. At 1715 Pt returned from OR intubated on ventilator. VSS. Dr. Saeed consulted for vent management. Pt is being sedated on low dose of Propofol at 5mcg/kg/min. BP dropping due to propofol therefore Levophed initiated at 5mcg. Pt has left lower abd dressing post op with 3 sundeep drains and packing. Shadowing circled. Ordered to leave post op dressing in place per Dr. Lombardi until further notice. at bedside.
[2018-12-12] MEDS ORDERED: IV NORMAL SALINE 1000ML BAG 1,000 ML IV ONE (18:15)
[2018-12-12 18:27] LABS: BASE EXCESS ABG -1 mmol/L (-3-3); HCO3 ABG 24 mmol/L (21-28); PCO2 ABG 40 mmHg (35-46); PO2 ABG 119 mmHg (65-108); SAT O2 ABG 97 % (92-99)
--- NOTE | 2018-12-12 18:29 | OP ---
DATE OF SURGERY: 12/12/2018 PREOPERATIVE DIAGNOSIS: Left lower quadrant abdominal wall abscess. POSTOPERATIVE DIAGNOSIS: Left lower quadrant abdominal wall abscess secondary to abdominal wall hernia with incarcerated, perforated colon. PROCEDURE: 1. Excisional debridement of skin and subcutaneous fat. 2. Biopsy of colon mass. 3. Closure of colotomy. 4. Wide drainage of the abdominal wall. SURGEON: Rigo Guallpa MD BODY WELDER: IGOR Stovall ANESTHESIA: General endotracheal. ESTIMATED BLOOD LOSS: 50 mL. IV FLUID: 850 mL. INDICATIONS: The patient is a 73-year-old morbidly obese female diabetic with pain and fecal and drainage from the left lower quadrant of the abdominal wall. DESCRIPTION OF PROCEDURE: The patient was brought to the Operating Suite, given a general endotracheal anesthetic and the abdomen prepped and draped in usual sterile fashion. The area of attenuated skin in the left lower quadrant was removed and immediately expelled stool and undigested vegetable products. The area was evacuated and the subcutaneous tissue inferior to the hole in the colon was debrided with sharp dissection to remove infected necrotic fat and skin. A nodule in the colotomy was biopsied and the opening closed with 2-0 chromic sutures. The wound was then copiously irrigated and checked for hemostasis. ____, three [place] drains were looped inferiorly at 4, 6 and 8 o'clock on the original incision to provide drainage of the subcutaneous space. The wound was then dressed with four individual vaginal packing soaked in saline. Sterile dressing applied. The patient transferred from the OR to the ICU in stable, but critical condition, still intubated. RIGO GUALLPA MD DR: GREGORY/nts JOB#: [id number] / [id number]
[2018-12-12 18:42] LABS: FIO2 ABG 40
--- NOTE | 2018-12-12 19:18 | NUR ---
Nursing Note Urine culture obtained from moncada catheter POA prior to insertion of new moncada catheter placed by this RN today.
[2018-12-12] MEDS ORDERED: INSULIN GLARGINE 300 UNITS/3 ML INSULN.PEN. SQ SCH ×2 (21:00)
[2018-12-12] MEDS: FAMOTIDINE 20 MG/2 ML VIAL IVP SCH (21:59)
[2018-12-12] MEDS ORDERED: INSULIN LISPRO 300 UNITS/3 ML INSULN.PEN. SQ ONE (22:30)
[2018-12-13] VITALS (24 sets, daily range): BP systolic 82–150; BP diastolic 41–75
[2018-12-13] MEDS: TIGECYCLINE 50 MG in IV DEXTROSE 5% 50 ML IV SCH ×2 (04:04→15:11)
[2018-12-13] MEDS: PROPOFOL 100 ML IV PRN (05:52)
[2018-12-13 06:37] LABS: BASO % 0 % (0-3); EOS % 0 % (0-3); HEMATOCRIT 29.3 % (36.0-47.0); HEMOGLOBIN 9.5 g/dL (12.0-15.5); LYMPH # 0.9 x10^3/uL (1.0-4.8); LYMPH % 5 % (24-48); MEAN CORPUSCULAR HEMOGLOBIN 30 pg (25-35); MEAN CORPUSCULAR HGB CONC 32 g/dL (31-37); MEAN CORPUSCULAR VOLUME 93 fL (79-100); MONO % 5 % (0-9); NEUT # 17.1 x10^3uL (1.8-7.7); NEUT % 90 % (31-73); PLATELET COUNT 398 x10^3/uL (140-400); RED BLOOD COUNT 3.15 x10^6/uL (3.50-5.40); RED CELL DISTRIBUTION WIDTH 15.1 % (11.5-14.5); WHITE BLOOD COUNT 19.1 x10^3/uL (4.0-11.0)
[2018-12-13 07:07] LABS: CREATININE 3.3 mg/dL (0.6-1.0); GFR 13.7; POTASSIUM 4.7 mmol/L (3.5-5.1)
[2018-12-13] MEDS ORDERED: INSULIN REGULAR 100 UNIT/ML 3ML VIAL. IV ONE (07:30)
[2018-12-13] MEDS ORDERED: INSULIN LISPRO 300 UNITS/3 ML INSULN.PEN. SQ ONE (07:30)
[2018-12-13 07:53] LABS: PROTHROMBIN TIME PATIENT 16.4 SEC (11.7-14.0)
[2018-12-13] MEDS ORDERED: DEXTROSE 50% 25 GM / 50ML DISP.SYRIN. IV PRN ×2 (08:00→20:30)
[2018-12-13] MEDS: INSULIN LISPRO 300 UNITS/3 ML INSULN.PEN. SQ SCH ×4 (08:00→19:03)
--- NOTE | 2018-12-13 08:05 | RAD ---
Portable chest, 12/13/2018: HISTORY: Respiratory distress Comparison is made to a study from 12/19/2016. The patient is rotated to the left. An ET tube is in place with its tip located 3 cm above the rolanda. A right Port-A-Cath extends into the superior vena cava. The heart is within normal limits in size. There is calcific plaquing of the aorta. The pulmonary vascularity is normal. There is a density in the left lateral costophrenic angle. Correlation with the current CT study suggests that this is probably due to a prominent epicardial fat pad. A small amount of left-sided pleural fluid cannot be excluded. The right chest is clear. Multiple surgical clips are present in the upper abdomen. A left shoulder prosthesis is in place. There are postsurgical changes involving the proximal right humerus. IMPRESSION: 1. The ET tube is in satisfactory position. 2. No acute infiltrates. Electronically signed by: Jesus Alberto Maciel MD (12/13/2018 8:00 AM) [facility]
[2018-12-13] MEDS: NYSTATIN TOPICAL POWDER 15GM BOTTLE. TP SCH ×2 (08:28→20:40)
[2018-12-13] MEDS: IV NORMAL SALINE 1000ML BAG 1,000 ML IV SCH (08:42)
[2018-12-13 08:44] LABS: % BANDS 7 % (0-9); % LYMPHS 1 % (24-48); % SEGS 92 % (35-66); PLT ESTIMATE ADEQUATE (ADEQUATE)
--- NOTE | 2018-12-13 08:50 | PDOC ---
PROGRESS NOTES Chief Complaint Chief Complaint LLQ abscess, colocutaneous fistula with perforation morbid obesity diabetes JACOB Septic shock History of Present Illness History of Present Illness 73-year-old female SNF resident w/ PMJahairax DM, HTN transferred from [facility] 2/2 septic shock from left-sided abdominal wound. Now in the ICU is hypotensive with a map of 56-59. Started on Levaquin and Flagyl empirically. She was found to have a colon perforation and went to OR for colotomy repair, biopsy, and wide area of debridement and returned to ICU on ventilator to recover from surgery. Overnight became hyperglycemic. given 10u lispro and 10u lantus, still elevated glucose this morning. BUN returned > 110 this morning, making urine, able to follow commands on vent. She is on vent wean now Plan: LLQ abscess, colocutaneous fistula with perforation - ID on board - tigecycline Morbid obesity Diabetes - Will give IV insulin and sliding scale q4 hours today. may need insulin GTT JACOB - IVF, will consult nephrology, may need bicarb infusion, would like to avoid dialysis Septic shock - IVF and antibiotics Vitals Vitals Vital Signs Date Time Temp Pulse Resp B/P (MAP) Pulse Ox O2 Delivery O2 Flow Rate FiO2 12/13/18 07:00 89 16 145/75 (98) 100 Ventilator 12/13/18 04:00 98.7 98.7 12/12/18 15:35 2.0 Physical Exam General: mild distress, Other (Sedated on vent) Heart: Regular rate Lungs: Clear Abdomen: Other (obese, there is an area of skin in the LLQ that is perforated and draining fecal material) Extremities: No clubbing, No cyanosis, No edema, Normal pulses, No tenderness/ swelling Labs LABS Laboratory Tests Test 12/12/18 12:36 12/12/18 14:00 12/12/18 18:20 12/12/18 20:55 Glucose (Fingerstick) 360 mg/dL (70-99) Sodium Level 129 mmol/L (136-145) Potassium Level 3.7 mmol/L (3.5-5.1) Chloride Level 90 mmol/L (98-107) Carbon Dioxide Level 27 mmol/L (21-32) Anion Gap 12 (6-14) Blood Urea Nitrogen 122 mg/dL (7-20) Creatinine 4.0 mg/dL (0.6-1.0) Estimated GFR (Cockcroft-Gault) 10.9 BUN/Creatinine Ratio 31 (6-20) Glucose Level 397 mg/dL (70-99) Calcium Level 8.9 mg/dL (8.5-10.1) Phosphorus Level 3.5 mg/dL (2.6-4.7) Magnesium Level 1.8 mg/dL (1.8-2.4) Total Bilirubin 0.4 mg/dL (0.2-1.0) Aspartate Amino Transf (AST/SGOT) 57 U/L (15-37) Alanine Aminotransferase (ALT/SGPT) 37 U/L (14-59) Alkaline Phosphatase 197 U/L (46-116) Total Protein 6.7 g/dL (6.4-8.2) Albumin 1.6 g/dL (3.4-5.0) Albumin/Globulin Ratio 0.3 (1.0-1.7) O2 Saturation 97 % (92-99) Arterial Blood pH 7.39 (7.35-7.45) Arterial Blood pCO2 at Patient Temp 40 mmHg (35-46) Arterial Blood pO2 at Patient Temp 119 mmHg (65-108) Arterial Blood HCO3 24 mmol/L (21-28) Arterial Blood Base Excess -1 mmol/L (-3-3) FiO2 40 Lactic Acid Level 1.5 mmol/L (0.4-2.0) Test 12/12/18 21:59 12/13/18 06:09 Glucose (Fingerstick) 514 mg/dL (70-99) White Blood Count 19.1 x10^3/uL (4.0-11.0) Red Blood Count 3.15 x10^6/uL (3.50-5.40) Hemoglobin 9.5 g/dL (12.0-15.5) Hematocrit 29.3 % (36.0-47.0) Mean Corpuscular Volume 93 fL (79-100) Mean Corpuscular Hemoglobin 30 pg (25-35) Mean Corpuscular Hemoglobin Concent 32 g/dL (31-37) Red Cell Distribution Width 15.1 % (11.5-14.5) Platelet Count 398 x10^3/uL (140-400) Neutrophils (%) (Auto) 90 % (31-73) Lymphocytes (%) (Auto) 5 % (24-48) Monocytes (%) (Auto) 5 % (0-9) Eosinophils (%) (Auto) 0 % (0-3) Basophils (%) (Auto) 0 % (0-3) Neutrophils # (Auto) 17.1 x10^3uL (1.8-7.7) Lymphocytes # (Auto) 0.9 x10^3/uL (1.0-4.8) Monocytes # (Auto) 1.0 x10^3/uL (0.0-1.1) Eosinophils # (Auto) 0.0 x10^3/uL (0.0-0.7) Basophils # (Auto) 0.0 x10^3/uL (0.0-0.2) Prothrombin Time 16.4 SEC (11.7-14.0) Prothromb Time International Ratio 1.4 (0.8-1.1) Sodium Level 133 mmol/L (136-145) Potassium Level 4.7 mmol/L (3.5-5.1) Chloride Level 93 mmol/L (98-107) Carbon Dioxide Level 20 mmol/L (21-32) Anion Gap 20 (6-14) Blood Urea Nitrogen 113 mg/dL (7-20) Creatinine 3.3 mg/dL (0.6-1.0) Estimated GFR (Cockcroft-Gault) 13.7 Glucose Level 640 mg/dL (70-99) Calcium Level 9.0 mg/dL (8.5-10.1) Comment Review of Relevant I have reviewed the following items leif (where applicable) has been applied. Labs Laboratory Tests Test 12/12/18 12:36 12/12/18 14:00 12/12/18 18:20 12/12/18 20:55 Glucose (Fingerstick) 360 mg/dL (70-99) Sodium Level 129 mmol/L (136-145) Potassium Level 3.7 mmol/L (3.5-5.1) Chloride Level 90 mmol/L (98-107) Carbon Dioxide Level 27 mmol/L (21-32) Anion Gap 12 (6-14) Blood Urea Nitrogen 122 mg/dL (7-20) Creatinine 4.0 mg/dL (0.6-1.0) Estimated GFR (Cockcroft-Gault) 10.9 BUN/Creatinine Ratio 31 (6-20) Glucose Level 397 mg/dL (70-99) Calcium Level 8.9 mg/dL (8.5-10.1) Phosphorus Level 3.5 mg/dL (2.6-4.7) Magnesium Level 1.8 mg/dL (1.8-2.4) Total Bilirubin 0.4 mg/dL (0.2-1.0) Aspartate Amino Transf (AST/SGOT) 57 U/L (15-37) Alanine Aminotransferase (ALT/SGPT) 37 U/L (14-59) Alkaline Phosphatase 197 U/L (46-116) Total Protein 6.7 g/dL (6.4-8.2) Albumin 1.6 g/dL (3.4-5.0) Albumin/Globulin Ratio 0.3 (1.0-1.7) O2 Saturation 97 % (92-99) Arterial Blood pH 7.39 (7.35-7.45) Arterial Blood pCO2 at Patient Temp 40 mmHg (35-46) Arterial Blood pO2 at Patient Temp 119 mmHg (65-108) Arterial Blood HCO3 24 mmol/L (21-28) Arterial Blood Base Excess -1 mmol/L (-3-3) FiO2 40 Lactic Acid Level 1.5 mmol/L (0.4-2.0) Test 12/12/18 21:59 12/13/18 06:09 Glucose (Fingerstick) 514 mg/dL (70-99) White Blood Count 19.1 x10^3/uL (4.0-11.0) Red Blood Count 3.15 x10^6/uL (3.50-5.40) Hemoglobin 9.5 g/dL (12.0-15.5) Hematocrit 29.3 % (36.0-47.0) Mean Corpuscular Volume 93 fL (79-100) Mean Corpuscular Hemoglobin 30 pg (25-35) Mean Corpuscular Hemoglobin Concent 32 g/dL (31-37) Red Cell Distribution Width 15.1 % (11.5-14.5) Platelet Count 398 x10^3/uL (140-400) Neutrophils (%) (Auto) 90 % (31-73) Lymphocytes (%) (Auto) 5 % (24-48) Monocytes (%) (Auto) 5 % (0-9) Eosinophils (%) (Auto) 0 % (0-3) Basophils (%) (Auto) 0 % (0-3) Neutrophils # (Auto) 17.1 x10^3uL (1.8-7.7) Lymphocytes # (Auto) 0.9 x10^3/uL (1.0-4.8) Monocytes # (Auto) 1.0 x10^3/uL (0.0-1.1) Eosinophils # (Auto) 0.0 x10^3/uL (0.0-0.7) Basophils # (Auto) 0.0 x10^3/uL (0.0-0.2) Prothrombin Time 16.4 SEC (11.7-14.0) Prothromb Time International Ratio 1.4 (0.8-1.1) Sodium Level 133 mmol/L (136-145) Potassium Level 4.7 mmol/L (3.5-5.1) Chloride Level 93 mmol/L (98-107) Carbon Dioxide Level 20 mmol/L (21-32) Anion Gap 20 (6-14) Blood Urea Nitrogen 113 mg/dL (7-20) Creatinine 3.3 mg/dL (0.6-1.0) Estimated GFR (Cockcroft-Gault) 13.7 Glucose Level 640 mg/dL (70-99) Calcium Level 9.0 mg/dL (8.5-10.1) Laboratory Tests Test 12/12/18 12:36 12/12/18 14:00 12/12/18 18:20 12/12/18 20:55 Glucose (Fingerstick) 360 mg/dL (70-99) Sodium Level 129 mmol/L (136-145) Potassium Level 3.7 mmol/L (3.5-5.1) Chloride Level 90 mmol/L (98-107) Carbon Dioxide Level 27 mmol/L (21-32) Anion Gap 12 (6-14) Blood Urea Nitrogen 122 mg/dL (7-20) Creatinine 4.0 mg/dL (0.6-1.0) Estimated GFR (Cockcroft-Gault) 10.9 BUN/Creatinine Ratio 31 (6-20) Glucose Level 397 mg/dL (70-99) Calcium Level 8.9 mg/dL (8.5-10.1) Phosphorus Level 3.5 mg/dL (2.6-4.7) Magnesium Level 1.8 mg/dL (1.8-2.4) Total Bilirubin 0.4 mg/dL (0.2-1.0) Aspartate Amino Transf (AST/SGOT) 57 U/L (15-37) Alanine Aminotransferase (ALT/SGPT) 37 U/L (14-59) Alkaline Phosphatase 197 U/L (46-116) Total Protein 6.7 g/dL (6.4-8.2) Albumin 1.6 g/dL (3.4-5.0) Albumin/Globulin Ratio 0.3 (1.0-1.7) O2 Saturation 97 % (92-99) Arterial Blood pH 7.39 (7.35-7.45) Arterial Blood pCO2 at Patient Temp 40 mmHg (35-46) Arterial Blood pO2 at Patient Temp 119 mmHg (65-108) Arterial Blood HCO3 24 mmol/L (21-28) Arterial Blood Base Excess -1 mmol/L (-3-3) FiO2 40 Lactic Acid Level 1.5 mmol/L (0.4-2.0) Test 12/12/18 21:59 12/13/18 06:09 Glucose (Fingerstick) 514 mg/dL (70-99) White Blood Count 19.1 x10^3/uL (4.0-11.0) Red Blood Count 3.15 x10^6/uL (3.50-5.40) Hemoglobin 9.5 g/dL (12.0-15.5) Hematocrit 29.3 % (36.0-47.0) Mean Corpuscular Volume 93 fL (79-100) Mean Corpuscular Hemoglobin 30 pg (25-35) Mean Corpuscular Hemoglobin Concent 32 g/dL (31-37) Red Cell Distribution Width 15.1 % (11.5-14.5) Platelet Count 398 x10^3/uL (140-400) Neutrophils (%) (Auto) 90 % (31-73) Lymphocytes (%) (Auto) 5 % (24-48) Monocytes (%) (Auto) 5 % (0-9) Eosinophils (%) (Auto) 0 % (0-3) Basophils (%) (Auto) 0 % (0-3) Neutrophils # (Auto) 17.1 x10^3uL (1.8-7.7) Lymphocytes # (Auto) 0.9 x10^3/uL (1.0-4.8) Monocytes # (Auto) 1.0 x10^3/uL (0.0-1.1) Eosinophils # (Auto) 0.0 x10^3/uL (0.0-0.7) Basophils # (Auto) 0.0 x10^3/uL (0.0-0.2) Prothrombin Time 16.4 SEC (11.7-14.0) Prothromb Time International Ratio 1.4 (0.8-1.1) Sodium Level 133 mmol/L (136-145) Potassium Level 4.7 mmol/L (3.5-5.1) Chloride Level 93 mmol/L (98-107) Carbon Dioxide Level 20 mmol/L (21-32) Anion Gap 20 (6-14) Blood Urea Nitrogen 113 mg/dL (7-20) Creatinine 3.3 mg/dL (0.6-1.0) Estimated GFR (Cockcroft-Gault) 13.7 Glucose Level 640 mg/dL (70-99) Calcium Level 9.0 mg/dL (8.5-10.1) Medications Current Medications Ondansetron HCl (Zofran) 4 mg PRN Q6HRS PRN IV NAUSEA/VOMITING; Start 12/12/18 at 12:15 Prochlorperazine Edisylate (Compazine) 10 mg PRN Q6HRS PRN IV NAUSEA/VOMITING; Start 12/12/18 at 12:15 Prochlorperazine (Compazine) 25 mg PRN Q12HR PRN CA NAUSEA/VOMITING; Start at 12:15 Al Hydroxide/Mg Hydroxide (Mylanta Plus Xs) 30 ml PRN Q3HRS PRN PO HEARTBURN / GAS; Start 12/12/18 at 12:15 Calcium Carbonate/ Glycine (Tums) 500 mg PRN Q3HRS PRN PO UPSET STOMACH; Start 12/12/18 at 12:15 Zolpidem Tartrate (Ambien) 5 mg PRN QHS PRN PO INSOMNIA, MAY REPEAT IN 1HR; Start 12/12/18 at 12:15 Oxycodone HCl (Roxicodone) 5 mg PRN Q3HRS PRN PO BREAKTHROUGH PAIN; Start 12/12 at 12:15 Morphine Sulfate (Morphine Sulfate) 2 mg PRN Q2HR PRN IV PAIN Last administered on 12/12/18at 14:25; Start 12/12/18 at 12:15 Acetaminophen (Tylenol) 650 mg PRN Q6HRS PRN PO Headaches, Temp > 101.5F; Start 12/12/18 at 12:15 Magnesium Hydroxide (Milk Of Magnesia) 2,400 mg PRN Q12HR PRN PO CONSTIPATION; Start 12/12/18 at 12:15 Bisacodyl (Dulcolax Supp) 10 mg PRN DAILY PRN CA CONSTIPATION; Start 12/12/18 at 12:15; Stop 12/12/18 at 12:26; Status DC Enoxaparin Sodium (Lovenox 40mg Syringe) 40 mg Q24H SQ ; Start 12/12/18 at 13:00 ; Stop 12/12/18 at 13:00; Status DC Sodium Chloride 1,000 ml @ 100 mls/hr Q10H IV Last administered on 12/12/18at 22:20; Start 12/12/18 at 12:15 Famotidine (Pepcid Vial) 20 mg QHS IVP Last administered on 12/12/18at 21:59; Start 12/12/18 at 21:00 Acetaminophen (Tylenol Supp) 650 mg PRN Q6HRS PRN RC FEVER; Start 12/12/18 at 12:30 Albuterol Sulfate (Ventolin Neb Soln) 2.5 mg PRN Q6HRS PRN INH SHORTNESS OF BREATH; Start 12/12/18 at 12:30 Bisacodyl (Dulcolax Supp) 10 mg PRN DAILY PRN RC CONSTIPATION; Start 12/12/18 at 12:30 Insulin Glargine (Lantus) 20 units QHS SQ ; Start 12/12/18 at 21:00; Stop at 21:00; Status DC Nystatin (Nystop) 1 ada BID TP Last administered on 12/12/18at 21:59; Start at 13:00 Norepinephrine Bitartrate 250 ml @ 1.875 mls/ hr CONT PRN IV SEE I/O RECORD Last administered on 12/12/18at 18:17; Start 12/12/18 at 12:45; Stop 12/12/18 at 12:45; Status DC Norepinephrine Bitartrate 250 ml @ 1.875 mls/ hr CONT PRN IV SEE I/O RECORD; Start 12/12/18 at 12:30; Status Cancel Levofloxacin/ Dextrose (Levaquin Per Pharmacy) 1 each PRN DAILY PRN MC SEE COMMENTS; Start 12/12/18 at 12:30 Metronidazole 100 ml @ 100 mls/hr Q8HRS IV Last administered on 12/13/18at 05: 53; Start 12/12/18 at 14:00 Insulin Glargine (Lantus) 10 units QHS SQ Last administered on 12/12/18at 22:11 ; Start 12/12/18 at 21:00 Levofloxacin/ Dextrose 100 ml @ 100 mls/hr Q24H IV Last administered on at 14:11; Start 12/12/18 at 13:00; Stop 12/12/18 at 15:54; Status DC Enoxaparin Sodium (Lovenox 40mg Syringe) 40 mg Q24H SQ ; Start 12/12/18 at 13:00 Fentanyl Citrate (Fentanyl 2ml Vial) 25 mcg PRN Q5MIN PRN IV MILD PAIN; Start 12/12/18 at 14:00; Stop 12/13/18 at 13:59 Fentanyl Citrate (Fentanyl 2ml Vial) 50 mcg PRN Q5MIN PRN IV MODERATE TO SEVERE PAIN; Start 12/12/18 at 14:00; Stop 12/13/18 at 13:59 Morphine Sulfate (Morphine Sulfate) 1 mg PRN Q10MIN PRN IV PAIN; Start at 14:15 Ringer's Solution 1,000 ml @ 30 mls/hr Q24H IV ; Start 12/12/18 at 13:55; Stop 12/13/18 at 01:54; Status DC Lidocaine HCl (Xylocaine-Mpf 1% 2ml Vial) 2 ml 1X PRN PRN ID IV START; Start at 14:00; Stop 12/13/18 at 13:59 Hydromorphone HCl (Dilaudid) 0.5 mg PRN Q10MIN PRN IV SEV PAIN, Second choice; Start 12/12/18 at 14:00; Stop 12/13/18 at 13:59 Prochlorperazine Edisylate (Compazine) 5 mg PACU PRN PRN IV NAUSEA, MRX1; Start 12/12/18 at 14:00; Stop 12/13/18 at 13:59 Tigecycline 100 mg/Dextrose 100 ml @ 200 mls/hr 1X ONCE IV Last administered on 12/12/18at 17:40; Start 12/12/18 at 15:15; Stop 12/12/18 at 15:44; Status DC Tigecycline 50 mg/ Dextrose 50 ml @ 100 mls/hr Q12H IV Last administered on at 04:04; Start 12/13/18 at 03:00 Rocuronium [place] (Zemuron) 50 mg STK-MED ONCE .ROUTE ; Start 12/12/18 at 15:37 ; Stop 12/12/18 at 15:39; Status DC Fentanyl Citrate (Fentanyl 2ml Vial) 100 mcg STK-MED ONCE .ROUTE ; Start at 15:37; Stop 12/12/18 at 15:39; Status DC Ketamine HCl (Ketamine) 50 mg STK-MED ONCE .ROUTE ; Start 12/12/18 at 15:49; Stop 12/12/18 at 15:51; Status DC Propofol 20 ml @ As Directed STK-MED ONCE IV ; Start 12/12/18 at 15:49; Stop at 15:51; Status DC Lidocaine HCl (Lidocaine Pf 2% Vial) 5 ml STK-MED ONCE .ROUTE ; Start 12/12/18 at 15:49; Stop 12/12/18 at 15:51; Status DC Dexamethasone Sodium Phosphate (Decadron) 20 mg STK-MED ONCE .ROUTE ; Start at 15:49; Stop 12/12/18 at 15:51; Status DC Ondansetron HCl (Zofran) 4 mg STK-MED ONCE .ROUTE ; Start 12/12/18 at 15:49; Stop 12/12/18 at 15:51; Status DC Phenylephrine HCl (PHENYLEPHRINE in 0.9% NACL PF) 1 mg STK-MED ONCE IV ; Start 12/12/18 at 15:49; Stop 12/12/18 at 15:51; Status DC Desflurane (Suprane) 90 ml STK-MED ONCE IH ; Start 12/12/18 at 15:50; Stop 12/12 at 15:52; Status DC Levofloxacin/ Dextrose 100 ml @ 100 mls/hr Q48H IV ; Start 12/13/18 at 16:00 Esmolol HCl (Brevibloc) 100 mg STK-MED ONCE IV ; Start 12/12/18 at 16:24; Stop 12/12/18 at 16:26; Status DC Rocuronium [place] (Zemuron) 100 mg STK-MED ONCE .ROUTE ; Start 12/12/18 at 16: 28; Stop 12/12/18 at 16:30; Status DC Phenylephrine HCl (Veto-Synephrine Inj) 10 mg STK-MED ONCE .ROUTE ; Start at 16:41; Stop 12/12/18 at 16:43; Status DC Cellulose (Surgicel Hemostat 4x8) 1 each STK-MED ONCE .ROUTE ; Start 12/12/18 at 16:47; Stop 12/12/18 at 16:49; Status DC Propofol 100 ml @ 0 mls/hr CONT PRN IV SEE PROTOCOL Last administered on at 05:52; Start 12/12/18 at 17:15 Sodium Chloride (Normal Saline Flush) 3 ml QSHIFT PRN IV AFTER MEDS AND BLOOD DRAWS; Start 12/12/18 at 17:30 Hydromorphone HCl (Dilaudid) 1 mg PRN Q3HRS PRN IV PAIN SEVERE; Start 12/12/18 at 17:30 Ondansetron HCl (Zofran) 4 mg PRN Q6HRS PRN IV NAUESA, 1ST CHOICE; Start at 17:30 Midazolam HCl (Versed) 2 mg PRN Q30MIN PRN IV SEE COMMENTS.; Start 12/12/18 at 17:30 Midazolam HCl (Versed) 5 mg STK-MED ONCE .ROUTE ; Start 12/12/18 at 17:23; Stop 12/12/18 at 17:25; Status DC Norepinephrine Bitartrate 250 ml @ 1.875 mls/ hr CONT PRN IV SEE I/O RECORD; Start 12/12/18 at 18:15 Sodium Chloride 1,000 ml @ 1,000 mls/hr 1X ONCE IV Last administered on 1/22/ 19at 18:45; Start 12/12/18 at 18:15; Stop 12/12/18 at 19:14; Status DC Insulin Human Lispro (HumaLOG) 8 units 1X ONCE SQ Last administered on at 22:15; Start 12/12/18 at 22:30; Stop 12/12/18 at 22:31; Status DC Insulin Human Regular (HumuLIN R VIAL) 10 unit 1X ONCE IV ; Start 12/13/18 at 07:30; Stop 12/13/18 at 07:46; Status DC Insulin Human Lispro (HumaLOG) 6 units 1X ONCE SQ ; Start 12/13/18 at 07:30; Stop 12/13/18 at 07:46; Status DC Insulin Human Lispro (HumaLOG) 0-7 UNITS Q4HRS SQ ; Start 12/13/18 at 08:00 Dextrose (Dextrose 50%-Water Syringe) 12.5 gm PRN Q15MIN PRN IV SEE COMMENTS; Start 12/13/18 at 08:00 Active Scripts Active Reported Potassium Chloride 20 Meq Tablet.er 20 Meq PO TIDWMEALS Roxicodone (Oxycodone HCl) 5 Mg Tablet 5 Mg PO PRN Q4HRS PRN Nystatin 1 Each Powder.ea. 1 Each MC BID Levemir (Insulin Detemir) 100 Unit/1 Ml Vial 20 Unit SQ HS Novolog (Insulin Aspart) 100 Unit/1 Ml Cartridge 0 SQ QIDACHS Guaifenesin 600 Mg Tablet.er 600 Mg PO BID Bisacodyl 10 Mg Supp.rect 10 Mg RC PRN DAILY PRN Alprazolam 1 Mg Tablet 1 Tab PO TID PRN Acetaminophen Supp (Acetaminophen) 650 Mg Supp.rect 650 Mg RC PRN Q6HRS PRN Proair Hfa Inhaler (Albuterol Sulfate) 8.5 Gm Hfa.aer.ad 1 Puff INH PRN Q6HRS PRN Levothyroxine Sodium 75 Mcg Tablet 1 Tab PO DAILY Vitals/I & O Vital Sign - Last 24 Hours 12/12/18 12/12/18 12/12/18 12/12/18 12:00 12:00 12:30 12:44 Temp 98.1 98.1 Pulse 104 98 Resp 18 18 B/P (MAP) 90/48 (62) 82/48 (59) Pulse Ox 98 99 98 O2 Delivery Nasal Cannula Nasal Cannula Nasal Cannula Nasal Cannula O2 Flow Rate 2.0 2.0 2.0 2.0 12/12/18 12/12/18 12/12/18 12/12/18 12:45 13:00 14:00 14:25 Pulse 98 104 94 Resp 16 16 16 18 B/P (MAP) 115/42 (66) 130/94 (106) 116/41 (66) Pulse Ox 99 98 96 97 O2 Delivery Nasal Cannula Nasal Cannula Nasal Cannula Nasal Cannula O2 Flow Rate 2.0 2.0 2.0 2.0 12/12/18 12/12/18 12/12/18 12/12/18 15:00 15:35 16:00 17:05 Pulse 96 Resp 16 B/P (MAP) 96/45 (62) Pulse Ox 96 100 O2 Delivery Nasal Cannula Nasal Cannula Mechanical Ventilator Ventilator O2 Flow Rate 2.0 2.0 12/12/18 12/12/18 12/12/18 12/12/18 17:15 17:30 17:45 18:00 Temp 98.5 98.5 Pulse 120 122 112 110 Resp 16 16 16 16 B/P (MAP) 103/42 (62) 74/50 (58) 87/44 (58) 79/37 (51) Pulse Ox 100 100 100 100 O2 Delivery Ventilator Ventilator Ventilator Ventilator 12/12/18 12/12/18 12/12/18 12/12/18 18:15 19:00 20:00 20:00 Temp 98.7 98.7 Pulse 100 104 105 Resp 16 16 16 B/P (MAP) 118/51 (73) 180/82 (114) 92/52 (65) Pulse Ox 100 100 100 O2 Delivery Ventilator Ventilator Ventilator Mechanical Ventilator 12/12/18 12/12/18 12/12/18 12/12/18 20:01 21:00 21:40 22:00 Pulse 114 100 Resp 16 16 B/P (MAP) 84/55 (65) 111/50 (70) Pulse Ox 100 100 100 99 O2 Delivery Ventilator Ventilator Ventilator Ventilator 12/12/18 12/12/18 12/12/18 12/13/18 23:00 23:35 23:59 01:00 Temp 98.5 98.5 Pulse 100 104 87 Resp 16 16 16 B/P (MAP) 107/53 (71) 101/51 (68) 122/51 (74) Pulse Ox 100 100 100 100 O2 Delivery Ventilator Ventilator Ventilator Ventilator 12/13/18 12/13/18 12/13/18 12/13/18 01:40 02:00 03:00 04:00 Temp 98.7 98.7 Pulse 82 99 100 Resp 16 16 16 B/P (MAP) 123/46 (71) 122/50 (74) 131/55 (80) Pulse Ox 100 100 100 98 O2 Delivery Ventilator Ventilator Ventilator Ventilator 12/13/18 12/13/18 12/13/18 12/13/18 04:40 05:23 06:00 07:00 Pulse 77 78 89 Resp 16 16 16 B/P (MAP) 145/72 (96) 150/56 (87) 145/75 (98) Pulse Ox 100 100 100 100 O2 Delivery Ventilator Ventilator Ventilator Ventilator Intake and Output 12/12/18 12/12/18 12/13/18 15:01 23:01 07:01 Intake Total 2318 ml Output Total 1600 ml 2150 ml Balance -1600 ml 168 ml LYNDA AGRAWAL MD Dec 13, 2018 08:50
[2018-12-13 08:57] LABS: BASE EXCESS ABG -5 mmol/L (-3-3); HCO3 ABG 20 mmol/L (21-28); PCO2 ABG 33 mmHg (35-46); PO2 ABG 131 mmHg (65-108); SAT O2 ABG 97 % (92-99)
[2018-12-13 09:00] LABS: FIO2 ABG 35
--- NOTE | 2018-12-13 09:50 | RAD ---
Left shoulder, 1 view, 12/13/2018: HISTORY: Follow-up fracture Comparison is made to a study from 09/16/2015. A left reverse shoulder arthroplasty is in place in satisfactory position. Since 09/16/2015 a displaced comminuted fracture of the proximal left humeral shaft has developed at the site of the stem of the humeral component of the prosthesis. There is considerable lateral displacement and angulation of the distal fracture fragments. There is abundant callus formation at this fracture site, although fracture lines are still visible. Left humerus and elbow, 4 views, 12/13/2018: No additional distal fracture or dislocation is identified. The bony structures are demineralized. No elbow joint effusion is evident. IMPRESSION: 1. A reverse left shoulder arthroplasty remains in place. 2. A displaced, comminuted proximal to mid humeral fracture has developed since 09/16/2015 with abundant callus formation at the fracture site. Electronically signed by: Jesus Alberto Maciel MD (12/13/2018 9:45 AM) [facility]
[2018-12-13] MEDS ORDERED: SODIUM BICARB ADULT 8.4% 50 MEQ/50 ML DISP.SYRIN. IV ONE (10:00)
[2018-12-13] MEDS ORDERED: IV NORMAL SALINE 1000ML BAG 1,000 ML IV ONE (10:00)
--- NOTE | 2018-12-13 10:05 | PDOC ---
SURGICAL PROGRESS NOTE Subjective intubated off sedation awake responds to questions Vital Signs Vital Signs Date Time Temp Pulse Resp B/P (MAP) Pulse Ox O2 Delivery O2 Flow Rate FiO2 12/13/18 08:45 100 Ventilator 12/13/18 07:00 89 16 145/75 (98) 12/13/18 04:00 98.7 98.7 12/12/18 15:35 2.0 on 8 mcg Levo I&O Intake and Output 12/13/18 07:01 Intake Total 2318 ml Output Total 3750 ml Balance -1432 ml Intake IV Total 2318 ml Output Urine Total 3750 ml PATIENT HAS A CARROLL: Yes General: Alert Abdomen: Other (obese, soft, some shadowing on LLQ dressing) Labs Laboratory Tests Test 12/12/18 12:36 12/12/18 14:00 12/12/18 18:20 12/12/18 20:55 Glucose (Fingerstick) 360 mg/dL (70-99) Sodium Level 129 mmol/L (136-145) Potassium Level 3.7 mmol/L (3.5-5.1) Chloride Level 90 mmol/L (98-107) Carbon Dioxide Level 27 mmol/L (21-32) Anion Gap 12 (6-14) Blood Urea Nitrogen 122 mg/dL (7-20) Creatinine 4.0 mg/dL (0.6-1.0) Estimated GFR (Cockcroft-Gault) 10.9 BUN/Creatinine Ratio 31 (6-20) Glucose Level 397 mg/dL (70-99) Calcium Level 8.9 mg/dL (8.5-10.1) Phosphorus Level 3.5 mg/dL (2.6-4.7) Magnesium Level 1.8 mg/dL (1.8-2.4) Total Bilirubin 0.4 mg/dL (0.2-1.0) Aspartate Amino Transf (AST/SGOT) 57 U/L (15-37) Alanine Aminotransferase (ALT/SGPT) 37 U/L (14-59) Alkaline Phosphatase 197 U/L (46-116) Total Protein 6.7 g/dL (6.4-8.2) Albumin 1.6 g/dL (3.4-5.0) Albumin/Globulin Ratio 0.3 (1.0-1.7) O2 Saturation 97 % (92-99) Arterial Blood pH 7.39 (7.35-7.45) Arterial Blood pCO2 at Patient Temp 40 mmHg (35-46) Arterial Blood pO2 at Patient Temp 119 mmHg (65-108) Arterial Blood HCO3 24 mmol/L (21-28) Arterial Blood Base Excess -1 mmol/L (-3-3) FiO2 40 Lactic Acid Level 1.5 mmol/L (0.4-2.0) Test 12/12/18 21:59 12/13/18 06:09 12/13/18 08:45 Glucose (Fingerstick) 514 mg/dL (70-99) White Blood Count 19.1 x10^3/uL (4.0-11.0) Red Blood Count 3.15 x10^6/uL (3.50-5.40) Hemoglobin 9.5 g/dL (12.0-15.5) Hematocrit 29.3 % (36.0-47.0) Mean Corpuscular Volume 93 fL (79-100) Mean Corpuscular Hemoglobin 30 pg (25-35) Mean Corpuscular Hemoglobin Concent 32 g/dL (31-37) Red Cell Distribution Width 15.1 % (11.5-14.5) Platelet Count 398 x10^3/uL (140-400) Neutrophils (%) (Auto) 90 % (31-73) Lymphocytes (%) (Auto) 5 % (24-48) Monocytes (%) (Auto) 5 % (0-9) Eosinophils (%) (Auto) 0 % (0-3) Basophils (%) (Auto) 0 % (0-3) Neutrophils # (Auto) 17.1 x10^3uL (1.8-7.7) Lymphocytes # (Auto) 0.9 x10^3/uL (1.0-4.8) Monocytes # (Auto) 1.0 x10^3/uL (0.0-1.1) Eosinophils # (Auto) 0.0 x10^3/uL (0.0-0.7) Basophils # (Auto) 0.0 x10^3/uL (0.0-0.2) Segmented Neutrophils % 92 % (35-66) Band Neutrophils % 7 % (0-9) Lymphocytes % 1 % (24-48) Platelet Estimate Adequate (ADEQUATE) Prothrombin Time 16.4 SEC (11.7-14.0) Prothromb Time International Ratio 1.4 (0.8-1.1) Sodium Level 133 mmol/L (136-145) Potassium Level 4.7 mmol/L (3.5-5.1) Chloride Level 93 mmol/L (98-107) Carbon Dioxide Level 20 mmol/L (21-32) Anion Gap 20 (6-14) Blood Urea Nitrogen 113 mg/dL (7-20) Creatinine 3.3 mg/dL (0.6-1.0) Estimated GFR (Cockcroft-Gault) 13.7 Glucose Level 640 mg/dL (70-99) Calcium Level 9.0 mg/dL (8.5-10.1) O2 Saturation 97 % (92-99) Arterial Blood pH 7.39 (7.35-7.45) Arterial Blood pCO2 at Patient Temp 33 mmHg (35-46) Arterial Blood pO2 at Patient Temp 131 mmHg (65-108) Arterial Blood HCO3 20 mmol/L (21-28) Arterial Blood Base Excess -5 mmol/L (-3-3) FiO2 35 Laboratory Tests Test 12/12/18 12:36 12/12/18 14:00 12/12/18 18:20 12/12/18 20:55 Glucose (Fingerstick) 360 mg/dL (70-99) Sodium Level 129 mmol/L (136-145) Potassium Level 3.7 mmol/L (3.5-5.1) Chloride Level 90 mmol/L (98-107) Carbon Dioxide Level 27 mmol/L (21-32) Anion Gap 12 (6-14) Blood Urea Nitrogen 122 mg/dL (7-20) Creatinine 4.0 mg/dL (0.6-1.0) Estimated GFR (Cockcroft-Gault) 10.9 BUN/Creatinine Ratio 31 (6-20) Glucose Level 397 mg/dL (70-99) Calcium Level 8.9 mg/dL (8.5-10.1) Phosphorus Level 3.5 mg/dL (2.6-4.7) Magnesium Level 1.8 mg/dL (1.8-2.4) Total Bilirubin 0.4 mg/dL (0.2-1.0) Aspartate Amino Transf (AST/SGOT) 57 U/L (15-37) Alanine Aminotransferase (ALT/SGPT) 37 U/L (14-59) Alkaline Phosphatase 197 U/L (46-116) Total Protein 6.7 g/dL (6.4-8.2) Albumin 1.6 g/dL (3.4-5.0) Albumin/Globulin Ratio 0.3 (1.0-1.7) O2 Saturation 97 % (92-99) Arterial Blood pH 7.39 (7.35-7.45) Arterial Blood pCO2 at Patient Temp 40 mmHg (35-46) Arterial Blood pO2 at Patient Temp 119 mmHg (65-108) Arterial Blood HCO3 24 mmol/L (21-28) Arterial Blood Base Excess -1 mmol/L (-3-3) FiO2 40 Lactic Acid Level 1.5 mmol/L (0.4-2.0) Test 12/12/18 21:59 12/13/18 06:09 12/13/18 08:45 Glucose (Fingerstick) 514 mg/dL (70-99) White Blood Count 19.1 x10^3/uL (4.0-11.0) Red Blood Count 3.15 x10^6/uL (3.50-5.40) Hemoglobin 9.5 g/dL (12.0-15.5) Hematocrit 29.3 % (36.0-47.0) Mean Corpuscular Volume 93 fL (79-100) Mean Corpuscular Hemoglobin 30 pg (25-35) Mean Corpuscular Hemoglobin Concent 32 g/dL (31-37) Red Cell Distribution Width 15.1 % (11.5-14.5) Platelet Count 398 x10^3/uL (140-400) Neutrophils (%) (Auto) 90 % (31-73) Lymphocytes (%) (Auto) 5 % (24-48) Monocytes (%) (Auto) 5 % (0-9) Eosinophils (%) (Auto) 0 % (0-3) Basophils (%) (Auto) 0 % (0-3) Neutrophils # (Auto) 17.1 x10^3uL (1.8-7.7) Lymphocytes # (Auto) 0.9 x10^3/uL (1.0-4.8) Monocytes # (Auto) 1.0 x10^3/uL (0.0-1.1) Eosinophils # (Auto) 0.0 x10^3/uL (0.0-0.7) Basophils # (Auto) 0.0 x10^3/uL (0.0-0.2) Segmented Neutrophils % 92 % (35-66) Band Neutrophils % 7 % (0-9) Lymphocytes % 1 % (24-48) Platelet Estimate Adequate (ADEQUATE) Prothrombin Time 16.4 SEC (11.7-14.0) Prothromb Time International Ratio 1.4 (0.8-1.1) Sodium Level 133 mmol/L (136-145) Potassium Level 4.7 mmol/L (3.5-5.1) Chloride Level 93 mmol/L (98-107) Carbon Dioxide Level 20 mmol/L (21-32) Anion Gap 20 (6-14) Blood Urea Nitrogen 113 mg/dL (7-20) Creatinine 3.3 mg/dL (0.6-1.0) Estimated GFR (Cockcroft-Gault) 13.7 Glucose Level 640 mg/dL (70-99) Calcium Level 9.0 mg/dL (8.5-10.1) O2 Saturation 97 % (92-99) Arterial Blood pH 7.39 (7.35-7.45) Arterial Blood pCO2 at Patient Temp 33 mmHg (35-46) Arterial Blood pO2 at Patient Temp 131 mmHg (65-108) Arterial Blood HCO3 20 mmol/L (21-28) Arterial Blood Base Excess -5 mmol/L (-3-3) FiO2 35 Assessment/Plan POD 1 debridement LLQ abdominal wall, 2/2 colocutaneous fistula morbid obesity poorly controlled DM will ask [facility] to see for recs continue supportive care RIGO GUALLPA MD Dec 13, 2018 10:05
--- NOTE | 2018-12-13 10:50 | CONS ---
DATE OF CONSULTATION: PULMONARY CONSULTATION ATTENDING PHYSICIAN: Dr. Anderson. REASON FOR CONSULTATION: Respiratory failure, septic shock. HISTORY OF PRESENT ILLNESS: The patient is a 73-year-old morbidly obese patient with a BMI of 59.9. She was transferred from [facility] because of septic shock. Source was left-sided abdominal wound draining foul smelling and a smell of stool. She has a history of bowel obstruction in 2017. According to the , she has been in and out of rehab facility for the last few months. She was tachycardic and hypotensive at [facility] and was started on Levaquin and Flagyl. She had an ultrasound, which verified an abscess collection. The patient also had a CT abdomen and pelvis, which showed abdominal wall hernia containing focal loop of descending colon with complex fluid collection in the hernia sac. The patient was seen by Dr. Lombardi, who took her to the OR and performed excisional debridement of the skin and the subcutaneous fat, biopsy of the colon mass, closure of the colotomy and wound drainage of the abdominal wall. She had a left lower quadrant abdominal wall abscess secondary to abdominal wall hernia, with incarceration and perforation of the colon. She was kept on the ventilator overnight. She had an arterial blood gases this morning with a pH of 7.39, pCO2 of 33 and a pO2 of 131 with a bicarbonate of 20. She is also in renal failure with a BUN of 130 and a creatinine of 3.3, which mildly improved since yesterday. Her blood sugar is 640. She has metabolic acidosis, bicarbonate of 20. The patient's albumin is only 1.6. She is requiring 8 mcg of Levophed. Currently on assist control mode, 35% FiO2. She had also disimpacted fracture of the left humerus on today's films. PAST MEDICAL HISTORY: Significant for history of hypertension and hyperlipidemia. No history of tobacco use or asthma. History of anxiety, depression and history of morbid obesity. No history of CANDACE. PAST SURGICAL HISTORY: Hernia repair and hysterectomy. FAMILY HISTORY: Noncontributory to lungs. SOCIAL HISTORY: Nonsmoker. ALLERGIES: PENICILLIN, SULFA, ASPIRIN, CEPHALEXIN, DIAZEPAM, DIPHENHYDRAMINE AND ERYTHROMYCIN. MEDICATIONS: Her current medications were all reviewed, including antibiotics per ID. PHYSICAL EXAMINATION: GENERAL: She is intubated. She is awake, following commands. She is mildly sedated. VITAL SIGNS: Blood pressure stable, pulse ox 100% on current 35% FiO2. HEENT: Sclerae nonicteric. NECK: Supple. LUNGS: With diminished breath sounds. CARDIOVASCULAR EXAMINATION: Regular rate. ABDOMEN: Soft, mildly tender. She has a wound in the left lower quadrant area. EXTREMITIES: With trace erythema and edema. She also has tenderness in the left humeral area. LABORATORY DATA: Labs were reviewed. INR 1.4. BUN and creatinine 122 and 4.0. Latest blood sugar is 640. White cell count 19.1, hemoglobin 9.5 and platelets are 398,000. Chest x-ray was reviewed. Endotracheal tube is in satisfactory position and no acute infiltrates seen. IMPRESSION: 1. Acute respiratory failure secondary to combination of septic and hypovolemic shock. 2. Shock secondary to combination of hypovolemia and septic shock. 3. 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 4. Acute renal failure with metabolic acidosis. 5. Severe protein-calorie malnutrition. 6. No significant history of tobacco use. 7. Disimpacted left humeral fracture. RECOMMENDATIONS: 1. Discussed with Dr. Lombardi and discussed with the patient's . At this time, I will keep her on assist control mode until her sepsis is resolved and blood pressure is better and renal function is better. 2. Broad-spectrum antibiotics. 3. IV fluid resuscitation to see an improvement in blood pressure. 4. Follow all cultures and wound cultures. 5. Monitor renal function. 6. Wean off vasopressor. 7. Antibiotics per Infectious Disease. 8. Nutrition, IV per General Surgery. 9. Lovenox for DVT prophylaxis. 10. Monitor white cell count. 11. Orthopedic consults regarding left humeral fracture. 12. We will consider weaning once her sepsis is improved. 13. Close monitoring of blood sugar, on insulin per protocol. 14. Discussed with Dr. Lombardi, discussed with RN, RT and . CRITICAL CARE TIME: 45 minutes. MITA ASHLEY MD DR: MEGAN/binta JOB#: [id number] / [id number]
[2018-12-13] MEDS: SODIUM BICARBONATE VIAL 50 MEQ in IV 1/2 NORMAL SALINE 1,000 ML IV SCH ×2 (11:00→18:00)
[2018-12-13] MEDS ORDERED: INSULIN REGULAR VIAL 150 UNIT in 0.9 % SODIUM CHLORIDE 150ML 150 ML IV PRN (11:00)
[2018-12-13] MEDS ORDERED: POTASSIUM CHLORIDE 10MEQ 100 ML IV PRN ×3 (11:00)
[2018-12-13 11:13] LABS: BASE EXCESS ABG 2 mmol/L (-3-3); HCO3 ABG 27 mmol/L (21-28); PCO2 ABG 44 mmHg (35-46); PO2 ABG 81 mmHg (65-108); SAT O2 ABG 95 % (92-99)
[2018-12-13 11:24] LABS: MAGNESIUM 1.9 mg/dL (1.8-2.4); PHOSPHORUS 5.4 mg/dL (2.6-4.7)
[2018-12-13] MEDS ORDERED: ALBUMIN HUMAN 5% 500 ML IV ONE ×2 (11:30→23:15)
--- NOTE | 2018-12-13 11:30 | PDOC ---
Infectious Disease Note Subjective: Subjective Pt underwent surgery yesterday no ex lap or colostomy needed post op intubated on pressors awake , alert, ROS: ROS Negative except for above. Vital Signs: Vital Signs Vital Signs Date Time Temp Pulse Resp B/P (MAP) Pulse Ox O2 Delivery O2 Flow Rate FiO2 12/13/18 10:18 100 Ventilator 12/13/18 10:00 86 16 98/52 (67) 12/13/18 08:00 98.6 98.6 12/12/18 15:35 2.0 Physical Exam: PHYSICAL EXAM GENERAL: Alert, awake. The patient in mild distress from abdominal discomfort. HEENT: Normocephalic, atraumatic. Anicteric. LUNGS: Decreased breath sounds at the base, otherwise clear. No wheezing. HEART: S1, S2 with no gallops or murmurs. ABDOMEN: Soft, obese. Bowel sounds present. Postop Dressing in place intact , dry EXTREMITIES: trace edema, no cyanosis. Chronic venous stasis changes present. NEUROLOGIC: Alert. Moves all 4 extremities except for left shoulder, which is in an immobilizer and right shoulder restricted movement from previous injury and neuropathy. PSYCHIATRIC: Affect is appropriate. Medications: Inpatient Meds: Current Medications Medications (Trade) Dose Ordered Sig/Kaleb Start Time Stop Time Status Last Admin Dose Admin Acetaminophen (Tylenol Supp) 650 mg PRN Q6HRS PRN 12/12/18 12:30 Acetaminophen (Tylenol) 650 mg PRN Q6HRS PRN 12/12/18 12:15 Al Hydroxide/Mg Hydroxide (Mylanta Plus Xs) 30 ml PRN Q3HRS PRN 12/12/18 12:15 Albuterol Sulfate (Ventolin Neb Soln) 2.5 mg PRN Q6HRS PRN 12/12/18 12:30 Bisacodyl (Dulcolax Supp) 10 mg PRN DAILY PRN 12/12/18 12:30 Calcium Carbonate/ Glycine (Tums) 500 mg PRN Q3HRS PRN 12/12/18 12:15 Cellulose (Surgicel Hemostat 4x8) 1 each STK-MED ONCE 12/12/18 16:47 12/12/18 16:49 DC Desflurane (Suprane) 90 ml STK-MED ONCE 12/12/18 15:50 12/12/18 15:52 DC Dexamethasone Sodium Phosphate (Decadron) 20 mg STK-MED ONCE 12/12/18 15:49 12/12/18 15:51 DC Dextrose (Dextrose 50%-Water Syringe) 12.5 gm PRN Q15MIN PRN 12/13/18 08:00 Enoxaparin Sodium (Lovenox 40mg Syringe) 40 mg Q24H 12/12/18 13:00 Esmolol HCl (Brevibloc) 100 mg STK-MED ONCE 12/12/18 16:24 12/12/18 16:26 DC Famotidine (Pepcid Vial) 20 mg QHS 12/12/18 21:00 12/12/18 21:59 20 MG Fentanyl Citrate (Fentanyl 2ml Vial) 100 mcg STK-MED ONCE 12/12/18 15:37 12/12/18 15:39 DC Hydromorphone HCl (Dilaudid) 1 mg PRN Q3HRS PRN 12/12/18 17:30 Insulin Glargine (Lantus) 10 units QHS 12/12/18 21:00 12/12/18 22:11 10 UNITS Insulin Human Lispro (HumaLOG) 0-7 UNITS Q4HRS 12/13/18 08:00 Insulin Human Regular (HumuLIN R VIAL) 10 unit 1X ONCE 12/13/18 07:30 12/13/18 07:46 DC 12/13/18 08:40 10 UNIT Insulin Human Regular 150 unit/ Sodium Chloride 151.5 ml @ 0 mls/hr CONT PRN PRN 12/13/18 11:00 Ketamine HCl (Ketamine) 50 mg STK-MED ONCE 12/12/18 15:49 12/12/18 15:51 DC Levofloxacin/ Dextrose 100 ml @ 100 mls/hr Q48H 12/13/18 16:00 Levofloxacin/ Dextrose (Levaquin Per Pharmacy) 1 each PRN DAILY PRN 12/12/18 12:30 Lidocaine HCl (Lidocaine Pf 2% Vial) 5 ml STK-MED ONCE 12/12/18 15:49 12/12/18 15:51 DC Lidocaine HCl (Xylocaine-Mpf 1% 2ml Vial) 2 ml 1X PRN PRN 12/12/18 14:00 12/13/18 13:59 Magnesium Hydroxide (Milk Of Magnesia) 2,400 mg PRN Q12HR PRN 12/12/18 12:15 Metronidazole 100 ml @ 100 mls/hr Q8HRS 12/12/18 14:00 12/13/18 05:53 100 MLS/HR Midazolam HCl (Versed) 5 mg STK-MED ONCE 12/12/18 17:23 12/12/18 17:25 DC Morphine Sulfate (Morphine Sulfate) 1 mg PRN Q10MIN PRN 12/12/18 14:15 12/13/18 10:38 DC Norepinephrine Bitartrate 250 ml @ 1.875 mls/ hr CONT PRN 12/12/18 18:15 Nystatin (Nystop) 1 ada BID 12/12/18 13:00 12/12/18 21:59 1 ADA Ondansetron HCl (Zofran) 4 mg PRN Q6HRS PRN 12/12/18 17:30 Oxycodone HCl (Roxicodone) 5 mg PRN Q3HRS PRN 12/12/18 12:15 Phenylephrine HCl (Veto-Synephrine Inj) 10 mg STK-MED ONCE 12/12/18 16:41 12/12/18 16:43 DC Phenylephrine HCl (PHENYLEPHRINE in 0.9% NACL PF) 1 mg STK-MED ONCE 12/12/18 15:49 12/12/18 15:51 DC Potassium Chloride/Water 100 ml @ 100 mls/hr PRN Q1HR PRN 12/13/18 11:00 Prochlorperazine (Compazine) 25 mg PRN Q12HR PRN 12/12/18 12:15 Prochlorperazine Edisylate (Compazine) 5 mg PACU PRN PRN 12/12/18 14:00 12/13/18 13:59 Propofol 100 ml @ 0 mls/hr CONT PRN 12/12/18 17:15 12/13/18 05:52 11.9 MLS/HR Ringer's Solution 1,000 ml @ 30 mls/hr Q24H 12/12/18 13:55 12/13/18 01:54 DC Rocuronium Gifford (Zemuron) 100 mg STK-MED ONCE 12/12/18 16:28 12/12/18 16:30 DC Sodium Bicarbonate 50 meq/Sodium Chloride 1,050 ml @ 150 mls/hr Q7H 12/13/18 11:00 Sodium Bicarbonate (Sodium Bicarb Adult 8.4% Syr) 50 meq 1X ONCE 12/13/18 10:00 12/13/18 10:08 DC 12/13/18 10:14 50 MEQ Sodium Chloride 1,000 ml @ 1,000 mls/hr 1X ONCE 12/13/18 10:00 12/13/18 11:00 DC 12/13/18 10:14 1,000 MLS/HR Sodium Chloride (Normal Saline Flush) 3 ml QSHIFT PRN 12/12/18 17:30 Tigecycline 100 mg/Dextrose 100 ml @ 200 mls/hr 1X ONCE 12/12/18 15:15 12/12/18 15:44 DC 12/12/18 17:40 200 MLS/HR Tigecycline 50 mg/ Dextrose 50 ml @ 100 mls/hr Q12H 12/13/18 03:00 12/13/18 04:04 100 MLS/HR Zolpidem Tartrate (Ambien) 5 mg PRN QHS PRN 12/12/18 12:15 Labs: Lab Laboratory Tests Test 12/12/18 12:36 12/12/18 14:00 12/12/18 18:20 12/12/18 20:55 Glucose (Fingerstick) 360 mg/dL (70-99) Sodium Level 129 mmol/L (136-145) Potassium Level 3.7 mmol/L (3.5-5.1) Chloride Level 90 mmol/L (98-107) Carbon Dioxide Level 27 mmol/L (21-32) Anion Gap 12 (6-14) Blood Urea Nitrogen 122 mg/dL (7-20) Creatinine 4.0 mg/dL (0.6-1.0) Estimated GFR (Cockcroft-Gault) 10.9 BUN/Creatinine Ratio 31 (6-20) Glucose Level 397 mg/dL (70-99) Calcium Level 8.9 mg/dL (8.5-10.1) Phosphorus Level 3.5 mg/dL (2.6-4.7) Magnesium Level 1.8 mg/dL (1.8-2.4) Total Bilirubin 0.4 mg/dL (0.2-1.0) Aspartate Amino Transf (AST/SGOT) 57 U/L (15-37) Alanine Aminotransferase (ALT/SGPT) 37 U/L (14-59) Alkaline Phosphatase 197 U/L (46-116) Total Protein 6.7 g/dL (6.4-8.2) Albumin 1.6 g/dL (3.4-5.0) Albumin/Globulin Ratio 0.3 (1.0-1.7) O2 Saturation 97 % (92-99) Arterial Blood pH 7.39 (7.35-7.45) Arterial Blood pCO2 at Patient Temp 40 mmHg (35-46) Arterial Blood pO2 at Patient Temp 119 mmHg (65-108) Arterial Blood HCO3 24 mmol/L (21-28) Arterial Blood Base Excess -1 mmol/L (-3-3) FiO2 40 Lactic Acid Level 1.5 mmol/L (0.4-2.0) Test 12/12/18 21:59 12/13/18 06:09 12/13/18 08:45 Glucose (Fingerstick) 514 mg/dL (70-99) White Blood Count 19.1 x10^3/uL (4.0-11.0) Red Blood Count 3.15 x10^6/uL (3.50-5.40) Hemoglobin 9.5 g/dL (12.0-15.5) Hematocrit 29.3 % (36.0-47.0) Mean Corpuscular Volume 93 fL (79-100) Mean Corpuscular Hemoglobin 30 pg (25-35) Mean Corpuscular Hemoglobin Concent 32 g/dL (31-37) Red Cell Distribution Width 15.1 % (11.5-14.5) Platelet Count 398 x10^3/uL (140-400) Neutrophils (%) (Auto) 90 % (31-73) Lymphocytes (%) (Auto) 5 % (24-48) Monocytes (%) (Auto) 5 % (0-9) Eosinophils (%) (Auto) 0 % (0-3) Basophils (%) (Auto) 0 % (0-3) Neutrophils # (Auto) 17.1 x10^3uL (1.8-7.7) Lymphocytes # (Auto) 0.9 x10^3/uL (1.0-4.8) Monocytes # (Auto) 1.0 x10^3/uL (0.0-1.1) Eosinophils # (Auto) 0.0 x10^3/uL (0.0-0.7) Basophils # (Auto) 0.0 x10^3/uL (0.0-0.2) Segmented Neutrophils % 92 % (35-66) Band Neutrophils % 7 % (0-9) Lymphocytes % 1 % (24-48) Platelet Estimate Adequate (ADEQUATE) Prothrombin Time 16.4 SEC (11.7-14.0) Prothromb Time International Ratio 1.4 (0.8-1.1) Sodium Level 133 mmol/L (136-145) Potassium Level 4.7 mmol/L (3.5-5.1) Chloride Level 93 mmol/L (98-107) Carbon Dioxide Level 20 mmol/L (21-32) Anion Gap 20 (6-14) Blood Urea Nitrogen 113 mg/dL (7-20) Creatinine 3.3 mg/dL (0.6-1.0) Estimated GFR (Cockcroft-Gault) 13.7 Glucose Level 640 mg/dL (70-99) Calcium Level 9.0 mg/dL (8.5-10.1) Phosphorus Level 5.4 mg/dL (2.6-4.7) Magnesium Level 1.9 mg/dL (1.8-2.4) O2 Saturation 97 % (92-99) Arterial Blood pH 7.39 (7.35-7.45) Arterial Blood pCO2 at Patient Temp 33 mmHg (35-46) Arterial Blood pO2 at Patient Temp 131 mmHg (65-108) Arterial Blood HCO3 20 mmol/L (21-28) Arterial Blood Base Excess -5 mmol/L (-3-3) FiO2 35 Objective: Assessment: Septic shock source intraabdominal abdominal wall abscess with hernia and loops of bowel multiple allergies lactic acidosis dm lt upper ext fracture 1. Septic shock, on pressors.Source Abdominal wall abscess 2. Left abdominal wall abscess ; s/p I and D Dec 12 2018, CT revealing focal loop of descending colon with complex fluid collection in the hernia sac, left lower quadrant Left anterolateral ostomy versus other loop of descending colon containing hernia. 3.Acute resp failure postop 4. History of multiple surgeries. 5. Lactic acidosis from above. 6. Obesity. 7. Diabetes. 8. Right upper extremity peripheral neuropathy. 9. Left upper extremity fracture. 10. Hyponatremia. 11. Protein-calorie malnutrition, present on admission. 12. Abnormal liver function tests. 13. History of multiple allergies Plan: Plan of Care cont levaquin and flagyl cont tigecycline will deescalate soon f/u BC from [facility],neg per verbal report though micro here cannot access the results wound management per Gen surgery f/u labs in am f/u cults d/w RN D/W at bedside DELGADO PANDEY MD Dec 13, 2018 11:30
--- NOTE | 2018-12-13 11:33 | NUR ---
Wound care: Patient seen per wound care consult. See wound assessment. All wounds cleansed, assessed, and measured. Patient has stage I pressure ulcer on left lateral ankle, skin prep and foam dressing applied. Patient has stage III with DTI pressure ulcers to left and right buttock and coccyx/sacral area and left upper medial thigh, A & D ointment applied and will order for this patient to be applied as directed. Patient has maceration likely from yeast under bilateral breast and pannus region, area cleansed and Nystatin powder reapplied. Patient does have this ordered, will continue with Nystatin. Patient repositioned to the right side using wedge. Patient has dressing from abdominal surgery in place and is C/D/I at this time. Spoke with RN regarding POC. A bariatric bed was ordered for this patient. Dressing change instructions left in room. at bedside at this time. Patient is alert at this time. Wound care will follow patient regarding care.
[2018-12-13 11:38] LABS: FIO2 ABG 35
--- NOTE | 2018-12-13 12:41 | PDOC2 ---
CONSULT Date of Consult Date of Consult DATE: 12/13/18 TIME: 12:32 Reason for Consult Reason for Consult: JACOB Referring Physician Referring Physician: RHODA Identification/Chief Complaint Chief Complaint ABD PAIN Source Source: Chart review History of Present Illness Reason for Visit: THIS IS A 73 YR OLD TRANSFERRED HERE FROM [place] FOR ABD WOUND/ABSCESS. SHE HAS HAD A DECLINE IN HER COURSE AND WAS THEN TRANSFERRED HERE. SHE HAS UNDERGONE I/D OF HER WOUND. NOW SEPTIC APPEARING WITH HIGH WBC AND ON THE VENT WITH JACOB. SHE IS CRITICALLY ILL. NO CKD NOTED. CR OF 3.3 WITH BG OF 640 AND MET ACIDOSIS. NEEDING PRESSORS FOR HEMODYNAMIC SUPPORT. Past Medical History Cardiovascular: HTN, Hyperlipidemia Pulmonary: COPD, Other Psych: Anxiety, Depression Musculoskeletal: low back pain, Other Rheumatologic: No pertinent hx Infectious disease: No pertinent hx ENT: No pertinent hx Renal/: No pertinent hx Endocrine: Diabetes Past Surgical History Past Surgical History: Hernia Repair, Hysterectomy, Other (gastric bypass) Family History Family History: No Significant, Family History Unknown Social History No ALCOHOL: none Drugs: None Lives: with Family Current Medications Current Medications Current Medications Ondansetron HCl (Zofran) 4 mg PRN Q6HRS PRN IV NAUSEA/VOMITING; Start 12/12/18 at 12:15; Stop 12/13/18 at 10:37; Status DC Prochlorperazine Edisylate (Compazine) 10 mg PRN Q6HRS PRN IV NAUSEA/VOMITING, 2ND CHOICE; Start 12/12/18 at 12:15 Prochlorperazine (Compazine) 25 mg PRN Q12HR PRN MD NAUSEA/VOMITING; Start at 12:15 Al Hydroxide/Mg Hydroxide (Mylanta Plus Xs) 30 ml PRN Q3HRS PRN PO HEARTBURN / GAS; Start 12/12/18 at 12:15 Calcium Carbonate/ Glycine (Tums) 500 mg PRN Q3HRS PRN PO UPSET STOMACH; Start 12/12/18 at 12:15 Zolpidem Tartrate (Ambien) 5 mg PRN QHS PRN PO INSOMNIA, MAY REPEAT IN 1HR; Start 12/12/18 at 12:15 Oxycodone HCl (Roxicodone) 5 mg PRN Q3HRS PRN PO BREAKTHROUGH PAIN; Start 12/12 at 12:15 Morphine Sulfate (Morphine Sulfate) 2 mg PRN Q2HR PRN IV MILD PAIN Last administered on 12/12/18at 14:25; Start 12/12/18 at 12:15 Acetaminophen (Tylenol) 650 mg PRN Q6HRS PRN PO Headaches, Temp > 101.5F; Start 12/12/18 at 12:15 Magnesium Hydroxide (Milk Of Magnesia) 2,400 mg PRN Q12HR PRN PO CONSTIPATION; Start 12/12/18 at 12:15 Bisacodyl (Dulcolax Supp) 10 mg PRN DAILY PRN MD CONSTIPATION; Start 12/12/18 at 12:15; Stop 12/12/18 at 12:26; Status DC Enoxaparin Sodium (Lovenox 40mg Syringe) 40 mg Q24H SQ ; Start 12/12/18 at 13:00 ; Stop 12/12/18 at 13:00; Status DC Sodium Chloride 1,000 ml @ 100 mls/hr Q10H IV Last administered on 12/13/18at 08:42; Start 12/12/18 at 12:15; Stop 12/13/18 at 11:01; Status DC Famotidine (Pepcid Vial) 20 mg QHS IVP Last administered on 12/12/18at 21:59; Start 12/12/18 at 21:00 Acetaminophen (Tylenol Supp) 650 mg PRN Q6HRS PRN RC FEVER; Start 12/12/18 at 12:30 Albuterol Sulfate (Ventolin Neb Soln) 2.5 mg PRN Q6HRS PRN INH SHORTNESS OF BREATH; Start 12/12/18 at 12:30 Bisacodyl (Dulcolax Supp) 10 mg PRN DAILY PRN RC CONSTIPATION; Start 12/12/18 at 12:30 Insulin Glargine (Lantus) 20 units QHS SQ ; Start 12/12/18 at 21:00; Stop at 21:00; Status DC Nystatin (Nystop) 1 ada BID TP Last administered on 12/12/18at 21:59; Start at 13:00 Norepinephrine Bitartrate 250 ml @ 1.875 mls/ hr CONT PRN IV SEE I/O RECORD Last administered on 12/12/18at 18:17; Start 12/12/18 at 12:45; Stop 12/12/18 at 12:45; Status DC Norepinephrine Bitartrate 250 ml @ 1.875 mls/ hr CONT PRN IV SEE I/O RECORD; Start 12/12/18 at 12:30; Status Cancel Levofloxacin/ Dextrose (Levaquin Per Pharmacy) 1 each PRN DAILY PRN MC SEE COMMENTS; Start 12/12/18 at 12:30 Metronidazole 100 ml @ 100 mls/hr Q8HRS IV Last administered on 12/13/18at 05: 53; Start 12/12/18 at 14:00; Stop 12/13/18 at 11:32; Status DC Insulin Glargine (Lantus) 10 units QHS SQ Last administered on 12/12/18at 22:11 ; Start 12/12/18 at 21:00 Levofloxacin/ Dextrose 100 ml @ 100 mls/hr Q24H IV Last administered on at 14:11; Start 12/12/18 at 13:00; Stop 12/12/18 at 15:54; Status DC Enoxaparin Sodium (Lovenox 40mg Syringe) 40 mg Q24H SQ ; Start 12/12/18 at 13:00 Fentanyl Citrate (Fentanyl 2ml Vial) 25 mcg PRN Q5MIN PRN IV MILD PAIN; Start 12/12/18 at 14:00; Stop 12/13/18 at 13:59 Fentanyl Citrate (Fentanyl 2ml Vial) 50 mcg PRN Q5MIN PRN IV MODERATE TO SEVERE PAIN; Start 12/12/18 at 14:00; Stop 12/13/18 at 13:59 Morphine Sulfate (Morphine Sulfate) 1 mg PRN Q10MIN PRN IV PAIN; Start at 14:15; Stop 12/13/18 at 10:38; Status DC Ringer's Solution 1,000 ml @ 30 mls/hr Q24H IV ; Start 12/12/18 at 13:55; Stop 12/13/18 at 01:54; Status DC Lidocaine HCl (Xylocaine-Mpf 1% 2ml Vial) 2 ml 1X PRN PRN ID IV START; Start at 14:00; Stop 12/13/18 at 13:59 Hydromorphone HCl (Dilaudid) 0.5 mg PRN Q10MIN PRN IV SEV PAIN, Second choice; Start 12/12/18 at 14:00; Stop 12/13/18 at 13:59 Prochlorperazine Edisylate (Compazine) 5 mg PACU PRN PRN IV NAUSEA, MRX1; Start 12/12/18 at 14:00; Stop 12/13/18 at 13:59 Tigecycline 100 mg/Dextrose 100 ml @ 200 mls/hr 1X ONCE IV Last administered on 12/12/18at 17:40; Start 12/12/18 at 15:15; Stop 12/12/18 at 15:44; Status DC Tigecycline 50 mg/ Dextrose 50 ml @ 100 mls/hr Q12H IV Last administered on at 04:04; Start 12/13/18 at 03:00 Rocuronium Powderly (Zemuron) 50 mg STK-MED ONCE .ROUTE ; Start 12/12/18 at 15:37 ; Stop 12/12/18 at 15:39; Status DC Fentanyl Citrate (Fentanyl 2ml Vial) 100 mcg STK-MED ONCE .ROUTE ; Start at 15:37; Stop 12/12/18 at 15:39; Status DC Ketamine HCl (Ketamine) 50 mg STK-MED ONCE .ROUTE ; Start 12/12/18 at 15:49; Stop 12/12/18 at 15:51; Status DC Propofol 20 ml @ As Directed STK-MED ONCE IV ; Start 12/12/18 at 15:49; Stop at 15:51; Status DC Lidocaine HCl (Lidocaine Pf 2% Vial) 5 ml STK-MED ONCE .ROUTE ; Start 12/12/18 at 15:49; Stop 12/12/18 at 15:51; Status DC Dexamethasone Sodium Phosphate (Decadron) 20 mg STK-MED ONCE .ROUTE ; Start at 15:49; Stop 12/12/18 at 15:51; Status DC Ondansetron HCl (Zofran) 4 mg STK-MED ONCE .ROUTE ; Start 12/12/18 at 15:49; Stop 12/12/18 at 15:51; Status DC Phenylephrine HCl (PHENYLEPHRINE in 0.9% NACL PF) 1 mg STK-MED ONCE IV ; Start 12/12/18 at 15:49; Stop 12/12/18 at 15:51; Status DC Desflurane (Suprane) 90 ml STK-MED ONCE IH ; Start 12/12/18 at 15:50; Stop 12/12 at 15:52; Status DC Levofloxacin/ Dextrose 100 ml @ 100 mls/hr Q48H IV ; Start 12/13/18 at 16:00 Esmolol HCl (Brevibloc) 100 mg STK-MED ONCE IV ; Start 12/12/18 at 16:24; Stop 12/12/18 at 16:26; Status DC Rocuronium Powderly (Zemuron) 100 mg STK-MED ONCE .ROUTE ; Start 12/12/18 at 16: 28; Stop 12/12/18 at 16:30; Status DC Phenylephrine HCl (Veto-Synephrine Inj) 10 mg STK-MED ONCE .ROUTE ; Start at 16:41; Stop 12/12/18 at 16:43; Status DC Cellulose (Surgicel Hemostat 4x8) 1 each STK-MED ONCE .ROUTE ; Start 12/12/18 at 16:47; Stop 12/12/18 at 16:49; Status DC Propofol 100 ml @ 0 mls/hr CONT PRN IV SEE PROTOCOL Last administered on at 05:52; Start 12/12/18 at 17:15 Sodium Chloride (Normal Saline Flush) 3 ml QSHIFT PRN IV AFTER MEDS AND BLOOD DRAWS; Start 12/12/18 at 17:30 Hydromorphone HCl (Dilaudid) 1 mg PRN Q3HRS PRN IV PAIN SEVERE; Start 12/12/18 at 17:30 Ondansetron HCl (Zofran) 4 mg PRN Q6HRS PRN IV NAUESA, 1ST CHOICE; Start at 17:30 Midazolam HCl (Versed) 2 mg PRN Q30MIN PRN IV SEE COMMENTS.; Start 12/12/18 at 17:30 Midazolam HCl (Versed) 5 mg STK-MED ONCE .ROUTE ; Start 12/12/18 at 17:23; Stop 12/12/18 at 17:25; Status DC Norepinephrine Bitartrate 250 ml @ 1.875 mls/ hr CONT PRN IV SEE I/O RECORD; Start 12/12/18 at 18:15 Sodium Chloride 1,000 ml @ 1,000 mls/hr 1X ONCE IV Last administered on at 18:45; Start 12/12/18 at 18:15; Stop 12/12/18 at 19:14; Status DC Insulin Human Lispro (HumaLOG) 8 units 1X ONCE SQ Last administered on at 22:15; Start 12/12/18 at 22:30; Stop 12/12/18 at 22:31; Status DC Insulin Human Regular (HumuLIN R VIAL) 10 unit 1X ONCE IV Last administered on 12/13/18at 08:40; Start 12/13/18 at 07:30; Stop 12/13/18 at 07:46; Status DC Insulin Human Lispro (HumaLOG) 6 units 1X ONCE SQ Last administered on at 08:41; Start 12/13/18 at 07:30; Stop 12/13/18 at 07:46; Status DC Insulin Human Lispro (HumaLOG) 0-7 UNITS Q4HRS SQ ; Start 12/13/18 at 08:00 Dextrose (Dextrose 50%-Water Syringe) 12.5 gm PRN Q15MIN PRN IV SEE COMMENTS; Start 12/13/18 at 08:00 Sodium Chloride 1,000 ml @ 1,000 mls/hr 1X ONCE IV Last administered on at 10:14; Start 12/13/18 at 10:00; Stop 12/13/18 at 11:00; Status DC Sodium Bicarbonate (Sodium Bicarb Adult 8.4% Syr) 50 meq 1X ONCE IV Last administered on 12/13/18at 10:14; Start 12/13/18 at 10:00; Stop 12/13/18 at 10:08 ; Status DC Insulin Human Regular 150 unit/ Sodium Chloride 151.5 ml @ 0 mls/hr CONT PRN PRN IV PER PROTOCOL; Start 12/13/18 at 11:00 Potassium Chloride/Water 100 ml @ 100 mls/hr PRN Q1HR PRN IV SEE COMMENTS; Start 12/13/18 at 11:00 Potassium Chloride/Water 100 ml @ 100 mls/hr PRN Q1HR PRN IV SEE COMMENTS; Start 12/13/18 at 11:00 Potassium Chloride/Water 100 ml @ 100 mls/hr PRN Q1HR PRN IV SEE COMMENTS; Start 12/13/18 at 11:00 Sodium Bicarbonate 50 meq/Sodium Chloride 1,050 ml @ 150 mls/hr Q7H IV ; Start 12/13/18 at 11:00 Albumin Human 500 ml @ 125 mls/hr 1X ONCE IV ; Start 12/13/18 at 11:30; Stop 12/13/18 at 15:29 Vitamin A/Vitamin D (Vitamin A & D Ointment) 1 ada PRN TID PRN TP SKIN PROTECTION; Start 12/13/18 at 14:00 Active Scripts Active Reported Potassium Chloride 20 Meq Tablet.er 20 Meq PO TIDWMEALS Roxicodone (Oxycodone HCl) 5 Mg Tablet 5 Mg PO PRN Q4HRS PRN Nystatin 1 Each Powder.ea. 1 Each MC BID Levemir (Insulin Detemir) 100 Unit/1 Ml Vial 20 Unit SQ HS Novolog (Insulin Aspart) 100 Unit/1 Ml Cartridge 0 SQ QIDACHS Guaifenesin 600 Mg Tablet.er 600 Mg PO BID Bisacodyl 10 Mg Supp.rect 10 Mg RC PRN DAILY PRN Alprazolam 1 Mg Tablet 1 Tab PO TID PRN Acetaminophen Supp (Acetaminophen) 650 Mg Supp.rect 650 Mg RC PRN Q6HRS PRN Proair Hfa Inhaler (Albuterol Sulfate) 8.5 Gm Hfa.aer.ad 1 Puff INH PRN Q6HRS PRN Levothyroxine Sodium 75 Mcg Tablet 1 Tab PO DAILY Allergies Allergies: Coded Allergies: Penicillins (Verified Allergy, Intermediate, 12/08/16) Sulfa (Sulfonamide Antibiotics) (Verified Allergy, Intermediate, 12/08/16) aspirin (Verified Allergy, Intermediate, 12/08/16) cephalexin (Verified Allergy, Intermediate, 04/19/15) diazepam (Verified Allergy, Intermediate, 12/08/16) diphenhydramine (Verified Allergy, Intermediate, 12/08/16) erythromycin base (Verified Allergy, Intermediate, 12/08/16) ROS Review of System UNABLE TO GET FROM PT Physical Exam General: No acute distress, Other (ON VENT) HEENT: Atraumatic, PERRLA, EOMI, Other (DRY MUCOSA) Heart: Regular rate Abdomen: Other (HYPOACTIVE) Extremities: No clubbing, No cyanosis Skin: No breakdown Neuro: Other (SEDATED) Psych/Mental Status: Other (SEDATED) MUSCULOSKELETAL: No deformity, No swelling Vitals VITALS Vital Signs Date Time Temp Pulse Resp B/P (MAP) Pulse Ox O2 Delivery O2 Flow Rate FiO2 12/13/18 11:29 100 Ventilator 12/13/18 10:00 86 16 98/52 (67) 12/13/18 08:00 98.6 98.6 12/12/18 15:35 2.0 Labs Labs Laboratory Tests Test 12/12/18 12:36 12/12/18 14:00 12/12/18 18:20 12/12/18 20:55 Glucose (Fingerstick) 360 mg/dL (70-99) Sodium Level 129 mmol/L (136-145) Potassium Level 3.7 mmol/L (3.5-5.1) Chloride Level 90 mmol/L (98-107) Carbon Dioxide Level 27 mmol/L (21-32) Anion Gap 12 (6-14) Blood Urea Nitrogen 122 mg/dL (7-20) Creatinine 4.0 mg/dL (0.6-1.0) Estimated GFR (Cockcroft-Gault) 10.9 BUN/Creatinine Ratio 31 (6-20) Glucose Level 397 mg/dL (70-99) Calcium Level 8.9 mg/dL (8.5-10.1) Phosphorus Level 3.5 mg/dL (2.6-4.7) Magnesium Level 1.8 mg/dL (1.8-2.4) Total Bilirubin 0.4 mg/dL (0.2-1.0) Aspartate Amino Transf (AST/SGOT) 57 U/L (15-37) Alanine Aminotransferase (ALT/SGPT) 37 U/L (14-59) Alkaline Phosphatase 197 U/L (46-116) Total Protein 6.7 g/dL (6.4-8.2) Albumin 1.6 g/dL (3.4-5.0) Albumin/Globulin Ratio 0.3 (1.0-1.7) O2 Saturation 97 % (92-99) Arterial Blood pH 7.39 (7.35-7.45) Arterial Blood pCO2 at Patient Temp 40 mmHg (35-46) Arterial Blood pO2 at Patient Temp 119 mmHg (65-108) Arterial Blood HCO3 24 mmol/L (21-28) Arterial Blood Base Excess -1 mmol/L (-3-3) FiO2 40 Lactic Acid Level 1.5 mmol/L (0.4-2.0) Test 12/12/18 21:59 12/13/18 06:09 12/13/18 08:45 12/13/18 11:10 Glucose (Fingerstick) 514 mg/dL (70-99) White Blood Count 19.1 x10^3/uL (4.0-11.0) Red Blood Count 3.15 x10^6/uL (3.50-5.40) Hemoglobin 9.5 g/dL (12.0-15.5) Hematocrit 29.3 % (36.0-47.0) Mean Corpuscular Volume 93 fL (79-100) Mean Corpuscular Hemoglobin 30 pg (25-35) Mean Corpuscular Hemoglobin Concent 32 g/dL (31-37) Red Cell Distribution Width 15.1 % (11.5-14.5) Platelet Count 398 x10^3/uL (140-400) Neutrophils (%) (Auto) 90 % (31-73) Lymphocytes (%) (Auto) 5 % (24-48) Monocytes (%) (Auto) 5 % (0-9) Eosinophils (%) (Auto) 0 % (0-3) Basophils (%) (Auto) 0 % (0-3) Neutrophils # (Auto) 17.1 x10^3uL (1.8-7.7) Lymphocytes # (Auto) 0.9 x10^3/uL (1.0-4.8) Monocytes # (Auto) 1.0 x10^3/uL (0.0-1.1) Eosinophils # (Auto) 0.0 x10^3/uL (0.0-0.7) Basophils # (Auto) 0.0 x10^3/uL (0.0-0.2) Segmented Neutrophils % 92 % (35-66) Band Neutrophils % 7 % (0-9) Lymphocytes % 1 % (24-48) Platelet Estimate Adequate (ADEQUATE) Prothrombin Time 16.4 SEC (11.7-14.0) Prothromb Time International Ratio 1.4 (0.8-1.1) Sodium Level 133 mmol/L (136-145) Potassium Level 4.7 mmol/L (3.5-5.1) Chloride Level 93 mmol/L (98-107) Carbon Dioxide Level 20 mmol/L (21-32) Anion Gap 20 (6-14) Blood Urea Nitrogen 113 mg/dL (7-20) Creatinine 3.3 mg/dL (0.6-1.0) Estimated GFR (Cockcroft-Gault) 13.7 Glucose Level 640 mg/dL (70-99) Calcium Level 9.0 mg/dL (8.5-10.1) Phosphorus Level 5.4 mg/dL (2.6-4.7) Magnesium Level 1.9 mg/dL (1.8-2.4) O2 Saturation 97 % (92-99) 95 % (92-99) Arterial Blood pH 7.39 (7.35-7.45) 7.40 (7.35-7.45) Arterial Blood pCO2 at Patient Temp 33 mmHg (35-46) 44 mmHg (35-46) Arterial Blood pO2 at Patient Temp 131 mmHg (65-108) 81 mmHg (65-108) Arterial Blood HCO3 20 mmol/L (21-28) 27 mmol/L (21-28) Arterial Blood Base Excess -5 mmol/L (-3-3) 2 mmol/L (-3-3) FiO2 35 35 Test 12/13/18 11:24 12/13/18 11:50 Glucose (Fingerstick) 470 mg/dL (70-99) Lactic Acid Level 1.9 mmol/L (0.4-2.0) Laboratory Tests Test 12/12/18 12:36 12/12/18 14:00 12/12/18 18:20 12/12/18 20:55 Glucose (Fingerstick) 360 mg/dL (70-99) Sodium Level 129 mmol/L (136-145) Potassium Level 3.7 mmol/L (3.5-5.1) Chloride Level 90 mmol/L (98-107) Carbon Dioxide Level 27 mmol/L (21-32) Anion Gap 12 (6-14) Blood Urea Nitrogen 122 mg/dL (7-20) Creatinine 4.0 mg/dL (0.6-1.0) Estimated GFR (Cockcroft-Gault) 10.9 BUN/Creatinine Ratio 31 (6-20) Glucose Level 397 mg/dL (70-99) Calcium Level 8.9 mg/dL (8.5-10.1) Phosphorus Level 3.5 mg/dL (2.6-4.7) Magnesium Level 1.8 mg/dL (1.8-2.4) Total Bilirubin 0.4 mg/dL (0.2-1.0) Aspartate Amino Transf (AST/SGOT) 57 U/L (15-37) Alanine Aminotransferase (ALT/SGPT) 37 U/L (14-59) Alkaline Phosphatase 197 U/L (46-116) Total Protein 6.7 g/dL (6.4-8.2) Albumin 1.6 g/dL (3.4-5.0) Albumin/Globulin Ratio 0.3 (1.0-1.7) O2 Saturation 97 % (92-99) Arterial Blood pH 7.39 (7.35-7.45) Arterial Blood pCO2 at Patient Temp 40 mmHg (35-46) Arterial Blood pO2 at Patient Temp 119 mmHg (65-108) Arterial Blood HCO3 24 mmol/L (21-28) Arterial Blood Base Excess -1 mmol/L (-3-3) FiO2 40 Lactic Acid Level 1.5 mmol/L (0.4-2.0) Test 12/12/18 21:59 12/13/18 06:09 12/13/18 08:45 12/13/18 11:10 Glucose (Fingerstick) 514 mg/dL (70-99) White Blood Count 19.1 x10^3/uL (4.0-11.0) Red Blood Count 3.15 x10^6/uL (3.50-5.40) Hemoglobin 9.5 g/dL (12.0-15.5) Hematocrit 29.3 % (36.0-47.0) Mean Corpuscular Volume 93 fL (79-100) Mean Corpuscular Hemoglobin 30 pg (25-35) Mean Corpuscular Hemoglobin Concent 32 g/dL (31-37) Red Cell Distribution Width 15.1 % (11.5-14.5) Platelet Count 398 x10^3/uL (140-400) Neutrophils (%) (Auto) 90 % (31-73) Lymphocytes (%) (Auto) 5 % (24-48) Monocytes (%) (Auto) 5 % (0-9) Eosinophils (%) (Auto) 0 % (0-3) Basophils (%) (Auto) 0 % (0-3) Neutrophils # (Auto) 17.1 x10^3uL (1.8-7.7) Lymphocytes # (Auto) 0.9 x10^3/uL (1.0-4.8) Monocytes # (Auto) 1.0 x10^3/uL (0.0-1.1) Eosinophils # (Auto) 0.0 x10^3/uL (0.0-0.7) Basophils # (Auto) 0.0 x10^3/uL (0.0-0.2) Segmented Neutrophils % 92 % (35-66) Band Neutrophils % 7 % (0-9) Lymphocytes % 1 % (24-48) Platelet Estimate Adequate (ADEQUATE) Prothrombin Time 16.4 SEC (11.7-14.0) Prothromb Time International Ratio 1.4 (0.8-1.1) Sodium Level 133 mmol/L (136-145) Potassium Level 4.7 mmol/L (3.5-5.1) Chloride Level 93 mmol/L (98-107) Carbon Dioxide Level 20 mmol/L (21-32) Anion Gap 20 (6-14) Blood Urea Nitrogen 113 mg/dL (7-20) Creatinine 3.3 mg/dL (0.6-1.0) Estimated GFR (Cockcroft-Gault) 13.7 Glucose Level 640 mg/dL (70-99) Calcium Level 9.0 mg/dL (8.5-10.1) Phosphorus Level 5.4 mg/dL (2.6-4.7) Magnesium Level 1.9 mg/dL (1.8-2.4) O2 Saturation 97 % (92-99) 95 % (92-99) Arterial Blood pH 7.39 (7.35-7.45) 7.40 (7.35-7.45) Arterial Blood pCO2 at Patient Temp 33 mmHg (35-46) 44 mmHg (35-46) Arterial Blood pO2 at Patient Temp 131 mmHg (65-108) 81 mmHg (65-108) Arterial Blood HCO3 20 mmol/L (21-28) 27 mmol/L (21-28) Arterial Blood Base Excess -5 mmol/L (-3-3) 2 mmol/L (-3-3) FiO2 35 35 Test 12/13/18 11:24 12/13/18 11:50 Glucose (Fingerstick) 470 mg/dL (70-99) Lactic Acid Level 1.9 mmol/L (0.4-2.0) Assessment/Plan Assessment/Plan IMP MET ACIDOSIS PROB DKA JACOB LEUCOCYTOSIS DM II ABD WALL I/D AND EC FISTULA ACUTE RESP FAILURE PLAN HCO3 GTT ANTIBIOTICS PRESSORS VENT SUPPORT MAY NEED DIALYSIS SUGGEST INSULIN GTT CHECK UA WILL FOLLOW D/W ATTENDING DEMARCO CHACKO MD Dec 13, 2018 12:41
[2018-12-13 12:57] LABS: MAGNESIUM 1.6 mg/dL (1.8-2.4); PHOSPHORUS 4.9 mg/dL (2.6-4.7)
[2018-12-13] MEDS: ENOXAPARIN 40 MG/0.4 ML SYRINGE. SQ SCH (13:00)
[2018-12-13] MEDS ORDERED: VITS A & D/LANOLIN TOPICAL OINTMENT 56GM TUBE. TP PRN (14:00)
--- NOTE | 2018-12-13 14:00 | NUR ---
NURSING NOTE: Patient has port a cath accessed. However, due to complex drug schedule and poor IV access orders received to place central line. Dr. Villegas placed triple lumen IJ at bedside. Time out preformed. Patient tolerated procedure well. CXR ordered to confirm placement.
--- NOTE | 2018-12-13 14:31 | RAD ---
Indication:VERIFY LINE PLACEMENT. TECHNIQUE:Portable AP chest X-ray COMPARISON:None FINDINGS: ET tube is seen with its tip approximately 2.5 cm above the level of [place]. Right-sided Chemo-Port is seen with its tip in the cavoatrial junction. Left IJ catheter is seen with its tip in the SVC. Heart is normal in size. Mild prominence of central bilateral bronchial markings. No pneumothorax or pleural effusion. Visualized bony thorax is within normal limits. IMPRESSION: Lines and tubes as described above. Mild prominence of central bilateral bronchovascular markings may be secondary to bronchitis. Electronically signed by: Mp Cordero DO (12/13/2018 2:26 PM) [id number]
[2018-12-13 14:54] LABS: BILIRUBIN,URINE NEGATIVE (NEG); CLARITY,URINE CLEAR; COLOR,URINE YELLOW; NITRITE,URINE NEGATIVE (NEG); PROTEIN,URINE NEGATIVE (NEG-TRACE); UROBILINOGEN,URINE 0.2 mg/dL (0.2 mg/dL)
[2018-12-13 15:10] LABS: BACTERIA,URINE 0 /HPF (0-FEW); RBC,URINE 0 /HPF (0-2); SQUAMOUS EPITHELIAL CELL,UR FEW /LPF; WBC,URINE >40 /HPF (0-4)
[2018-12-13 15:13] LABS: YEAST,URINE PRESENT /HPF
--- NOTE | 2018-12-13 16:11 | NUR ---
SS following for discharge planning. SS reviewed pt chart. Pt is currently on the vent. SS received notification that pt was from [facility], ; fax [phone]. SS contacted [facility] to verify pt's previous placement. 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
--- NOTE | 2018-12-13 17:18 | NUR ---
NURSING NOTE: Decreased Levophed. Patient alert and following commands. Dr. Saeed given update on patient status, and approved extubation. Patient extubated and placed on 3.L NC and maintaining O2 at 96%. Patient is currently on insulin gtt per [facility] for elevated blood glucose. Dr. Mims ordered DKA protocol to manage electrolyte imbalances. will continue to monitor
[2018-12-13 17:55] LABS: CALCIUM 8.2 mg/dL (8.5-10.1); CREATININE 2.8 mg/dL (0.6-1.0); GFR 16.5; MAGNESIUM 1.5 mg/dL (1.8-2.4); PHOSPHORUS 3.1 mg/dL (2.6-4.7); POTASSIUM 3.1 mmol/L (3.5-5.1)
[2018-12-13] MEDS ORDERED: MAGNESIUM SULFATE 4GM 100 ML IV ONE (18:30)
[2018-12-13] MEDS: POTASSIUM CHLORIDE 10MEQ 100 ML IV SCH ×4 (19:25→21:42)
[2018-12-13] MEDS ORDERED: IV DEXTROSE 5 %-0.45 % NACL 1,000 ML IV SCH (20:00)
[2018-12-13] MEDS: FAMOTIDINE 20 MG/2 ML VIAL IVP SCH (20:39)
[2018-12-13] MEDS: INSULIN GLARGINE 300 UNITS/3 ML INSULN.PEN. SQ SCH (20:46)
[2018-12-13] MEDS: MORPHINE SULFATE 4 MG/ML VIAL. IV PRN (20:56)
[2018-12-14] VITALS (24 sets, daily range): BP systolic 98–154; BP diastolic 38–73
[2018-12-14] MEDS: SODIUM BICARBONATE VIAL 50 MEQ in IV 1/2 NORMAL SALINE 1,000 ML IV SCH ×4 (02:26→23:49)
[2018-12-14] MEDS: TIGECYCLINE 50 MG in IV DEXTROSE 5% 50 ML IV SCH ×2 (03:57→15:19)
[2018-12-14] MEDS: MORPHINE SULFATE 4 MG/ML VIAL. IV PRN ×7 (03:58→23:51)
[2018-12-14] MEDS: INSULIN LISPRO 300 UNITS/3 ML INSULN.PEN. SQ SCH ×6 (04:08→20:00)
[2018-12-14 06:25] LABS: CALCIUM 8.7 mg/dL (8.5-10.1); GFR 24.4; POTASSIUM 3.9 mmol/L (3.5-5.1)
--- NOTE | 2018-12-14 08:31 | PDOC ---
Infectious Disease Note Subjective: Subjective Patient extubated yesterday p.m. Complains of pain at surgical site On the Levophed at 4 mcg Denies any nausea, vomiting some cough ROS: ROS Negative except for above. Vital Signs: Vital Signs Vital Signs Date Time Temp Pulse Resp B/P (MAP) Pulse Ox O2 Delivery O2 Flow Rate FiO2 12/14/18 06:00 87 22 154/53 (86) 99 Nasal Cannula 3.0 12/14/18 04:00 98.4 98.4 Physical Exam: PHYSICAL EXAM GENERAL: Alert, awake,mild distress HEENT: Normocephalic, atraumatic. Anicteric. LUNGS: Decreased breath sounds at the base, otherwise clear. No wheezing. HEART: S1, S2 with no gallops or murmurs. ABDOMEN: Soft, obese. Bowel sounds present. Postop Dressing in place intact , dry EXTREMITIES: trace edema, no cyanosis. Chronic venous stasis changes present. NEUROLOGIC: Alert. 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 PSYCHIATRIC: Affect is appropriate. Medications: Inpatient Meds: Current Medications Medications (Trade) Dose Ordered Sig/Kaleb Start Time Stop Time Status Last Admin Dose Admin Acetaminophen (Tylenol Supp) 650 mg PRN Q6HRS PRN 12/12/18 12:30 Acetaminophen (Tylenol) 650 mg PRN Q6HRS PRN 12/12/18 12:15 Al Hydroxide/Mg Hydroxide (Mylanta Plus Xs) 30 ml PRN Q3HRS PRN 12/12/18 12:15 Albumin Human 500 ml @ 125 mls/hr 1X ONCE 12/13/18 23:15 12/14/18 03:14 DC 12/14/18 00:09 125 MLS/HR Albuterol Sulfate (Ventolin Neb Soln) 2.5 mg PRN Q6HRS PRN 12/12/18 12:30 Bisacodyl (Dulcolax Supp) 10 mg PRN DAILY PRN 12/12/18 12:30 Calcium Carbonate/ Glycine (Tums) 500 mg PRN Q3HRS PRN 12/12/18 12:15 Cellulose (Surgicel Hemostat 4x8) 1 each STK-MED ONCE 12/12/18 16:47 12/12/18 16:49 DC Desflurane (Suprane) 90 ml STK-MED ONCE 12/12/18 15:50 12/12/18 15:52 DC Dexamethasone Sodium Phosphate (Decadron) 20 mg STK-MED ONCE 12/12/18 15:49 12/12/18 15:51 DC Dextrose (Dextrose 50%-Water Syringe) 12.5 gm PRN Q15MIN PRN 12/13/18 20:30 Dextrose/Sodium Chloride 1,000 ml @ 250 mls/hr Q4H 12/13/18 20:00 12/13/18 20:34 DC 12/13/18 20:00 250 MLS/HR Enoxaparin Sodium (Lovenox 40mg Syringe) 40 mg Q24H 12/12/18 13:00 Esmolol HCl (Brevibloc) 100 mg STK-MED ONCE 12/12/18 16:24 12/12/18 16:26 DC Famotidine (Pepcid Vial) 20 mg QHS 12/12/18 21:00 12/13/18 20:39 20 MG Fentanyl Citrate (Fentanyl 2ml Vial) 25 mcg PRN Q2HR PRN 12/13/18 18:30 Hydromorphone HCl (Dilaudid) 1 mg PRN Q3HRS PRN 12/12/18 17:30 Insulin Glargine (Lantus) 20 units QHS 12/13/18 21:00 12/13/18 20:46 20 UNITS Insulin Human Lispro (HumaLOG) 0-9 UNITS Q4HRS 12/14/18 00:00 12/14/18 04:08 3 UNITS Insulin Human Regular (HumuLIN R VIAL) 10 unit 1X ONCE 12/13/18 07:30 12/13/18 07:46 DC 12/13/18 08:40 10 UNIT Insulin Human Regular 150 unit/ Sodium Chloride 151.5 ml @ 0 mls/hr CONT PRN PRN 12/13/18 11:00 12/13/18 20:34 DC Ketamine HCl (Ketamine) 50 mg STK-MED ONCE 12/12/18 15:49 12/12/18 15:51 DC Levofloxacin/ Dextrose 100 ml @ 100 mls/hr Q48H 12/13/18 16:00 12/13/18 15:13 100 MLS/HR Levofloxacin/ Dextrose (Levaquin Per Pharmacy) 1 each PRN DAILY PRN 12/12/18 12:30 Lidocaine HCl (Lidocaine Pf 2% Vial) 5 ml STK-MED ONCE 12/12/18 15:49 12/12/18 15:51 DC Lidocaine HCl (Xylocaine-Mpf 1% 2ml Vial) 2 ml 1X PRN PRN 12/12/18 14:00 12/13/18 13:59 DC Magnesium Hydroxide (Milk Of Magnesia) 2,400 mg PRN Q12HR PRN 12/12/18 12:15 Magnesium Sulfate/ Dextrose 100 ml @ 25 mls/hr 1X ONCE 12/13/18 18:30 12/13/18 22:29 DC 12/13/18 19:24 25 MLS/HR Metronidazole 100 ml @ 100 mls/hr Q8HRS 12/12/18 14:00 12/13/18 11:32 DC 12/13/18 05:53 100 MLS/HR Midazolam HCl (Versed) 5 mg STK-MED ONCE 12/12/18 17:23 12/12/18 17:25 DC Morphine Sulfate (Morphine Sulfate) 1 mg PRN Q10MIN PRN 12/12/18 14:15 12/13/18 10:38 DC Norepinephrine Bitartrate 250 ml @ 1.875 mls/ hr CONT PRN 12/12/18 18:15 Nystatin (Nystop) 1 ada BID 12/12/18 13:00 12/13/18 20:40 1 ADA Ondansetron HCl (Zofran) 4 mg PRN Q6HRS PRN 12/12/18 17:30 Oxycodone HCl (Roxicodone) 5 mg PRN Q3HRS PRN 12/12/18 12:15 Phenylephrine HCl (Veto-Synephrine Inj) 10 mg STK-MED ONCE 12/12/18 16:41 12/12/18 16:43 DC Phenylephrine HCl (PHENYLEPHRINE in 0.9% NACL PF) 1 mg STK-MED ONCE 12/12/18 15:49 12/12/18 15:51 DC Potassium Chloride/Water 100 ml @ 100 mls/hr Q1HR 12/13/18 19:00 12/13/18 22:59 DC 12/13/18 21:42 100 MLS/HR Prochlorperazine (Compazine) 25 mg PRN Q12HR PRN 12/12/18 12:15 Prochlorperazine Edisylate (Compazine) 5 mg PACU PRN PRN 12/12/18 14:00 12/13/18 13:59 DC Propofol 100 ml @ 0 mls/hr CONT PRN 12/12/18 17:15 12/13/18 05:52 11.9 MLS/HR Ringer's Solution 1,000 ml @ 30 mls/hr Q24H 12/12/18 13:55 12/13/18 01:54 DC Rocuronium [place] (Zemuron) 100 mg STK-MED ONCE 12/12/18 16:28 12/12/18 16:30 DC Sodium Bicarbonate 50 meq/Sodium Chloride 1,050 ml @ 150 mls/hr Q7H 12/13/18 11:00 12/14/18 02:26 150 MLS/HR Sodium Bicarbonate (Sodium Bicarb Adult 8.4% Syr) 50 meq 1X ONCE 12/13/18 10:00 12/13/18 10:08 DC 12/13/18 10:14 50 MEQ Sodium Chloride 1,000 ml @ 1,000 mls/hr 1X ONCE 12/13/18 10:00 12/13/18 11:00 DC 12/13/18 10:14 1,000 MLS/HR Sodium Chloride (Normal Saline Flush) 3 ml QSHIFT PRN 12/12/18 17:30 Tigecycline 100 mg/Dextrose 100 ml @ 200 mls/hr 1X ONCE 12/12/18 15:15 12/12/18 15:44 DC 12/12/18 17:40 200 MLS/HR Tigecycline 50 mg/ Dextrose 50 ml @ 100 mls/hr Q12H 12/13/18 03:00 12/14/18 03:57 100 MLS/HR Vitamin A/Vitamin D (Vitamin A & D Ointment) 1 ada PRN TID PRN 12/13/18 14:00 Zolpidem Tartrate (Ambien) 5 mg PRN QHS PRN 12/12/18 12:15 Labs: Lab Laboratory Tests Test 12/13/18 08:45 12/13/18 11:10 12/13/18 11:24 12/13/18 11:50 O2 Saturation 97 % (92-99) 95 % (92-99) Arterial Blood pH 7.39 (7.35-7.45) 7.40 (7.35-7.45) Arterial Blood pCO2 at Patient Temp 33 mmHg (35-46) 44 mmHg (35-46) Arterial Blood pO2 at Patient Temp 131 mmHg (65-108) 81 mmHg (65-108) Arterial Blood HCO3 20 mmol/L (21-28) 27 mmol/L (21-28) Arterial Blood Base Excess -5 mmol/L (-3-3) 2 mmol/L (-3-3) FiO2 35 35 Glucose (Fingerstick) 470 mg/dL (70-99) Lactic Acid Level 1.9 mmol/L (0.4-2.0) Phosphorus Level 4.9 mg/dL (2.6-4.7) Magnesium Level 1.6 mg/dL (1.8-2.4) Test 12/13/18 13:50 12/13/18 14:31 12/13/18 15:03 12/13/18 16:29 Glucose (Fingerstick) 437 mg/dL (70-99) 417 mg/dL (70-99) 358 mg/dL (70-99) Urine Collection Type Unknown Urine Color Yellow Urine Clarity Clear Urine pH 5.0 Urine Specific [place] 1.020 Urine Protein Negative mg/dL (NEG-TRACE) Urine Glucose (UA) >=1000 mg/dL (NEG) Urine Ketones (Stick) Negative mg/dL (NEG) Urine Blood Small (NEG) Urine Nitrite Negative (NEG) Urine Bilirubin Negative (NEG) Urine Urobilinogen Dipstick 0.2 mg/dL (0.2 mg/dL) Urine Leukocyte Esterase Moderate (NEG) Urine RBC 0 /HPF (0-2) Urine WBC >40 /HPF (0-4) Urine Squamous Epithelial Cells Few /LPF Urine Bacteria 0 /HPF (0-FEW) Urine Mucus Mod /LPF Urine Yeast Present /HPF Test 12/13/18 17:35 12/13/18 17:42 12/13/18 19:46 12/13/18 20:42 Sodium Level 143 mmol/L (136-145) Potassium Level 3.1 mmol/L (3.5-5.1) Chloride Level 103 mmol/L (98-107) Carbon Dioxide Level 30 mmol/L (21-32) Anion Gap 10 (6-14) Blood Urea Nitrogen 103 mg/dL (7-20) Creatinine 2.8 mg/dL (0.6-1.0) Estimated GFR (Cockcroft-Gault) 16.5 Glucose Level 315 mg/dL (70-99) Calcium Level 8.2 mg/dL (8.5-10.1) Phosphorus Level 3.1 mg/dL (2.6-4.7) Magnesium Level 1.5 mg/dL (1.8-2.4) Glucose (Fingerstick) 276 mg/dL (70-99) 143 mg/dL (70-99) 161 mg/dL (70-99) Test 12/13/18 21:42 12/13/18 22:17 12/14/18 00:11 12/14/18 04:04 Glucose (Fingerstick) 182 mg/dL (70-99) 158 mg/dL (70-99) 181 mg/dL (70-99) 205 mg/dL (70-99) Test 12/14/18 05:30 12/14/18 07:37 Sodium Level 142 mmol/L (136-145) Potassium Level 3.9 mmol/L (3.5-5.1) Chloride Level 102 mmol/L (98-107) Carbon Dioxide Level 31 mmol/L (21-32) Anion Gap 9 (6-14) Blood Urea Nitrogen 79 mg/dL (7-20) Creatinine 2.0 mg/dL (0.6-1.0) Estimated GFR (Cockcroft-Gault) 24.4 Glucose Level 233 mg/dL (70-99) Calcium Level 8.7 mg/dL (8.5-10.1) Glucose (Fingerstick) 170 mg/dL (70-99) Objective: Assessment: 1. Septic shock, on pressors.Source Abdominal wall abscess 2. Left abdominal wall abscess ; s/p I and D Dec 12 2018, CT revealing focal loop of descending colon with complex fluid collection in the hernia sac, left lower quadrant Left anterolateral ostomy versus other loop of descending colon containing hernia. 3.Acute resp failure postop 4. History of multiple surgeries. 5. Lactic acidosis from above. 6. Obesity. 7. Diabetes. 8. Right upper extremity peripheral neuropathy. 9. Left upper extremity fracture. 10. Hyponatremia. 11. Protein-calorie malnutrition, present on admission. 12. Abnormal liver function tests. 13. History of multiple allergies Plan: Plan of Care cont levaquin and tigecycline f/u [facility] from [facility],neg per verbal report though micro here cannot access the results wound management per Gen surgery f/u labs in am f/u intra-operative cults December 12, 2018 d/w RN D/W at bedside DELGADO PANDEY MD Dec 14, 2018 08:31
--- NOTE | 2018-12-14 09:00 | PDOC ---
PROGRESS NOTES Chief Complaint Chief Complaint LLQ abscess, colocutaneous fistula with perforation morbid obesity diabetes JACOB Septic shock History of Present Illness History of Present Illness 73-year-old female SNF resident w/ PMHx DM, HTN transferred from [facility] 2/2 septic shock from left-sided abdominal wound. Now in the ICU is hypotensive with a map of 56-59. Started on Levaquin and Flagyl empirically. She was found to have a colon perforation and went to OR for colotomy repair, biopsy, and wide area of debridement and returned to ICU on ventilator to recover from surgery. 12/13: Overnight became hyperglycemic. given 10u lispro and 10u lantus, still elevated glucose this morning. BUN returned > 110 this morning, making urine, successfully extubated. Insulin GTT started Gap closed yesterday, glucose came down below 200 on multiple checks. She is feeling very weak. still on levophed. Nephrology consulted for uremia Plan: LLQ abscess, colocutaneous fistula with perforation - ID on board - tigecycline Morbid obesity Diabetes - Will give IV insulin and sliding scale q4 hours today. may need insulin GTT JACOB - IVF, appreciate nephrology, bicarb infusion, would like to avoid dialysis Septic shock - IVF and antibiotics Vitals Vitals Vital Signs Date Time Temp Pulse Resp B/P (MAP) Pulse Ox O2 Delivery O2 Flow Rate FiO2 12/14/18 06:00 87 22 154/53 (86) 99 Nasal Cannula 3.0 12/14/18 04:00 98.4 98.4 Physical Exam Physical Exam GENERAL: Alert, awake,mild distress HEENT: Normocephalic, atraumatic. Anicteric. LUNGS: Decreased breath sounds at the base, otherwise clear. No wheezing. HEART: S1, S2 with no gallops or murmurs. ABDOMEN: Soft, obese. Bowel sounds present. Postop Dressing in place intact , dry EXTREMITIES: trace edema, no cyanosis. Chronic venous stasis changes present. NEUROLOGIC: Alert. 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 PSYCHIATRIC: Affect is appropriate. General: No acute distress, Other (ON VENT) Heart: Regular rate Lungs: Clear Abdomen: Other (HYPOACTIVE) Extremities: No clubbing, No cyanosis Skin: No breakdown Labs LABS Laboratory Tests Test 12/13/18 11:10 12/13/18 11:24 12/13/18 11:50 12/13/18 13:50 O2 Saturation 95 % (92-99) Arterial Blood pH 7.40 (7.35-7.45) Arterial Blood pCO2 at Patient Temp 44 mmHg (35-46) Arterial Blood pO2 at Patient Temp 81 mmHg (65-108) Arterial Blood HCO3 27 mmol/L (21-28) Arterial Blood Base Excess 2 mmol/L (-3-3) FiO2 35 Glucose (Fingerstick) 470 mg/dL (70-99) 437 mg/dL (70-99) Lactic Acid Level 1.9 mmol/L (0.4-2.0) Phosphorus Level 4.9 mg/dL (2.6-4.7) Magnesium Level 1.6 mg/dL (1.8-2.4) Test 12/13/18 14:31 12/13/18 15:03 12/13/18 16:29 12/13/18 17:35 Urine Collection Type Unknown Urine Color Yellow Urine Clarity Clear Urine pH 5.0 Urine Specific [place] 1.020 Urine Protein Negative mg/dL (NEG-TRACE) Urine Glucose (UA) >=1000 mg/dL (NEG) Urine Ketones (Stick) Negative mg/dL (NEG) Urine Blood Small (NEG) Urine Nitrite Negative (NEG) Urine Bilirubin Negative (NEG) Urine Urobilinogen Dipstick 0.2 mg/dL (0.2 mg/dL) Urine Leukocyte Esterase Moderate (NEG) Urine RBC 0 /HPF (0-2) Urine WBC >40 /HPF (0-4) Urine Squamous Epithelial Cells Few /LPF Urine Bacteria 0 /HPF (0-FEW) Urine Mucus Mod /LPF Urine Yeast Present /HPF Glucose (Fingerstick) 417 mg/dL (70-99) 358 mg/dL (70-99) Sodium Level 143 mmol/L (136-145) Potassium Level 3.1 mmol/L (3.5-5.1) Chloride Level 103 mmol/L (98-107) Carbon Dioxide Level 30 mmol/L (21-32) Anion Gap 10 (6-14) Blood Urea Nitrogen 103 mg/dL (7-20) Creatinine 2.8 mg/dL (0.6-1.0) Estimated GFR (Cockcroft-Gault) 16.5 Glucose Level 315 mg/dL (70-99) Calcium Level 8.2 mg/dL (8.5-10.1) Phosphorus Level 3.1 mg/dL (2.6-4.7) Magnesium Level 1.5 mg/dL (1.8-2.4) Test 12/13/18 17:42 12/13/18 19:46 12/13/18 20:42 12/13/18 21:42 Glucose (Fingerstick) 276 mg/dL (70-99) 143 mg/dL (70-99) 161 mg/dL (70-99) 182 mg/dL (70-99) Test 12/13/18 22:17 12/14/18 00:11 12/14/18 04:04 12/14/18 05:30 Glucose (Fingerstick) 158 mg/dL (70-99) 181 mg/dL (70-99) 205 mg/dL (70-99) Sodium Level 142 mmol/L (136-145) Potassium Level 3.9 mmol/L (3.5-5.1) Chloride Level 102 mmol/L (98-107) Carbon Dioxide Level 31 mmol/L (21-32) Anion Gap 9 (6-14) Blood Urea Nitrogen 79 mg/dL (7-20) Creatinine 2.0 mg/dL (0.6-1.0) Estimated GFR (Cockcroft-Gault) 24.4 Glucose Level 233 mg/dL (70-99) Calcium Level 8.7 mg/dL (8.5-10.1) Test 12/14/18 07:37 Glucose (Fingerstick) 170 mg/dL (70-99) Comment Review of Relevant I have reviewed the following items leif (where applicable) has been applied. Labs Laboratory Tests Test 12/12/18 12:36 12/12/18 14:00 12/12/18 17:00 12/12/18 18:20 Glucose (Fingerstick) 360 mg/dL (70-99) Sodium Level 129 mmol/L (136-145) Potassium Level 3.7 mmol/L (3.5-5.1) Chloride Level 90 mmol/L (98-107) Carbon Dioxide Level 27 mmol/L (21-32) Anion Gap 12 (6-14) Blood Urea Nitrogen 122 mg/dL (7-20) Creatinine 4.0 mg/dL (0.6-1.0) Estimated GFR (Cockcroft-Gault) 10.9 BUN/Creatinine Ratio 31 (6-20) Glucose Level 397 mg/dL (70-99) Calcium Level 8.9 mg/dL (8.5-10.1) Phosphorus Level 3.5 mg/dL (2.6-4.7) Magnesium Level 1.8 mg/dL (1.8-2.4) Total Bilirubin 0.4 mg/dL (0.2-1.0) Aspartate Amino Transf (AST/SGOT) 57 U/L (15-37) Alanine Aminotransferase (ALT/SGPT) 37 U/L (14-59) Alkaline Phosphatase 197 U/L (46-116) Total Protein 6.7 g/dL (6.4-8.2) Albumin 1.6 g/dL (3.4-5.0) Albumin/Globulin Ratio 0.3 (1.0-1.7) Nasal Screen MRSA (PCR) Negative (Negative) O2 Saturation 97 % (92-99) Arterial Blood pH 7.39 (7.35-7.45) Arterial Blood pCO2 at Patient Temp 40 mmHg (35-46) Arterial Blood pO2 at Patient Temp 119 mmHg (65-108) Arterial Blood HCO3 24 mmol/L (21-28) Arterial Blood Base Excess -1 mmol/L (-3-3) FiO2 40 Test 12/12/18 20:55 12/12/18 21:59 12/13/18 06:09 12/13/18 08:45 Lactic Acid Level 1.5 mmol/L (0.4-2.0) Glucose (Fingerstick) 514 mg/dL (70-99) White Blood Count 19.1 x10^3/uL (4.0-11.0) Red Blood Count 3.15 x10^6/uL (3.50-5.40) Hemoglobin 9.5 g/dL (12.0-15.5) Hematocrit 29.3 % (36.0-47.0) Mean Corpuscular Volume 93 fL (79-100) Mean Corpuscular Hemoglobin 30 pg (25-35) Mean Corpuscular Hemoglobin Concent 32 g/dL (31-37) Red Cell Distribution Width 15.1 % (11.5-14.5) Platelet Count 398 x10^3/uL (140-400) Neutrophils (%) (Auto) 90 % (31-73) Lymphocytes (%) (Auto) 5 % (24-48) Monocytes (%) (Auto) 5 % (0-9) Eosinophils (%) (Auto) 0 % (0-3) Basophils (%) (Auto) 0 % (0-3) Neutrophils # (Auto) 17.1 x10^3uL (1.8-7.7) Lymphocytes # (Auto) 0.9 x10^3/uL (1.0-4.8) Monocytes # (Auto) 1.0 x10^3/uL (0.0-1.1) Eosinophils # (Auto) 0.0 x10^3/uL (0.0-0.7) Basophils # (Auto) 0.0 x10^3/uL (0.0-0.2) Segmented Neutrophils % 92 % (35-66) Band Neutrophils % 7 % (0-9) Lymphocytes % 1 % (24-48) Platelet Estimate Adequate (ADEQUATE) Prothrombin Time 16.4 SEC (11.7-14.0) Prothromb Time International Ratio 1.4 (0.8-1.1) Sodium Level 133 mmol/L (136-145) Potassium Level 4.7 mmol/L (3.5-5.1) Chloride Level 93 mmol/L (98-107) Carbon Dioxide Level 20 mmol/L (21-32) Anion Gap 20 (6-14) Blood Urea Nitrogen 113 mg/dL (7-20) Creatinine 3.3 mg/dL (0.6-1.0) Estimated GFR (Cockcroft-Gault) 13.7 Glucose Level 640 mg/dL (70-99) Calcium Level 9.0 mg/dL (8.5-10.1) Phosphorus Level 5.4 mg/dL (2.6-4.7) Magnesium Level 1.9 mg/dL (1.8-2.4) O2 Saturation 97 % (92-99) Arterial Blood pH 7.39 (7.35-7.45) Arterial Blood pCO2 at Patient Temp 33 mmHg (35-46) Arterial Blood pO2 at Patient Temp 131 mmHg (65-108) Arterial Blood HCO3 20 mmol/L (21-28) Arterial Blood Base Excess -5 mmol/L (-3-3) FiO2 35 Test 1/23/19 11:10 12/13/18 11:24 12/13/18 11:50 12/13/18 13:50 O2 Saturation 95 % (92-99) Arterial Blood pH 7.40 (7.35-7.45) Arterial Blood pCO2 at Patient Temp 44 mmHg (35-46) Arterial Blood pO2 at Patient Temp 81 mmHg (65-108) Arterial Blood HCO3 27 mmol/L (21-28) Arterial Blood Base Excess 2 mmol/L (-3-3) FiO2 35 Glucose (Fingerstick) 470 mg/dL (70-99) 437 mg/dL (70-99) Lactic Acid Level 1.9 mmol/L (0.4-2.0) Phosphorus Level 4.9 mg/dL (2.6-4.7) Magnesium Level 1.6 mg/dL (1.8-2.4) Test 12/13/18 14:31 12/13/18 15:03 12/13/18 16:29 12/13/18 17:35 Urine Collection Type Unknown Urine Color Yellow Urine Clarity Clear Urine pH 5.0 Urine Specific [place] 1.020 Urine Protein Negative mg/dL (NEG-TRACE) Urine Glucose (UA) >=1000 mg/dL (NEG) Urine Ketones (Stick) Negative mg/dL (NEG) Urine Blood Small (NEG) Urine Nitrite Negative (NEG) Urine Bilirubin Negative (NEG) Urine Urobilinogen Dipstick 0.2 mg/dL (0.2 mg/dL) Urine Leukocyte Esterase Moderate (NEG) Urine RBC 0 /HPF (0-2) Urine WBC >40 /HPF (0-4) Urine Squamous Epithelial Cells Few /LPF Urine Bacteria 0 /HPF (0-FEW) Urine Mucus Mod /LPF Urine Yeast Present /HPF Glucose (Fingerstick) 417 mg/dL (70-99) 358 mg/dL (70-99) Sodium Level 143 mmol/L (136-145) Potassium Level 3.1 mmol/L (3.5-5.1) Chloride Level 103 mmol/L (98-107) Carbon Dioxide Level 30 mmol/L (21-32) Anion Gap 10 (6-14) Blood Urea Nitrogen 103 mg/dL (7-20) Creatinine 2.8 mg/dL (0.6-1.0) Estimated GFR (Cockcroft-Gault) 16.5 Glucose Level 315 mg/dL (70-99) Calcium Level 8.2 mg/dL (8.5-10.1) Phosphorus Level 3.1 mg/dL (2.6-4.7) Magnesium Level 1.5 mg/dL (1.8-2.4) Test 12/13/18 17:42 12/13/18 19:46 12/13/18 20:42 12/13/18 21:42 Glucose (Fingerstick) 276 mg/dL (70-99) 143 mg/dL (70-99) 161 mg/dL (70-99) 182 mg/dL (70-99) Test 12/13/18 22:17 12/14/18 00:11 12/14/18 04:04 12/14/18 05:30 Glucose (Fingerstick) 158 mg/dL (70-99) 181 mg/dL (70-99) 205 mg/dL (70-99) Sodium Level 142 mmol/L (136-145) Potassium Level 3.9 mmol/L (3.5-5.1) Chloride Level 102 mmol/L (98-107) Carbon Dioxide Level 31 mmol/L (21-32) Anion Gap 9 (6-14) Blood Urea Nitrogen 79 mg/dL (7-20) Creatinine 2.0 mg/dL (0.6-1.0) Estimated GFR (Cockcroft-Gault) 24.4 Glucose Level 233 mg/dL (70-99) Calcium Level 8.7 mg/dL (8.5-10.1) Test 12/14/18 07:37 Glucose (Fingerstick) 170 mg/dL (70-99) Laboratory Tests Test 12/13/18 11:10 12/13/18 11:24 12/13/18 11:50 12/13/18 13:50 O2 Saturation 95 % (92-99) Arterial Blood pH 7.40 (7.35-7.45) Arterial Blood pCO2 at Patient Temp 44 mmHg (35-46) Arterial Blood pO2 at Patient Temp 81 mmHg (65-108) Arterial Blood HCO3 27 mmol/L (21-28) Arterial Blood Base Excess 2 mmol/L (-3-3) FiO2 35 Glucose (Fingerstick) 470 mg/dL (70-99) 437 mg/dL (70-99) Lactic Acid Level 1.9 mmol/L (0.4-2.0) Phosphorus Level 4.9 mg/dL (2.6-4.7) Magnesium Level 1.6 mg/dL (1.8-2.4) Test 12/13/18 14:31 12/13/18 15:03 12/13/18 16:29 12/13/18 17:35 Urine Collection Type Unknown Urine Color Yellow Urine Clarity Clear Urine pH 5.0 Urine Specific [place] 1.020 Urine Protein Negative mg/dL (NEG-TRACE) Urine Glucose (UA) >=1000 mg/dL (NEG) Urine Ketones (Stick) Negative mg/dL (NEG) Urine Blood Small (NEG) Urine Nitrite Negative (NEG) Urine Bilirubin Negative (NEG) Urine Urobilinogen Dipstick 0.2 mg/dL (0.2 mg/dL) Urine Leukocyte Esterase Moderate (NEG) Urine RBC 0 /HPF (0-2) Urine WBC >40 /HPF (0-4) Urine Squamous Epithelial Cells Few /LPF Urine Bacteria 0 /HPF (0-FEW) Urine Mucus Mod /LPF Urine Yeast Present /HPF Glucose (Fingerstick) 417 mg/dL (70-99) 358 mg/dL (70-99) Sodium Level 143 mmol/L (136-145) Potassium Level 3.1 mmol/L (3.5-5.1) Chloride Level 103 mmol/L (98-107) Carbon Dioxide Level 30 mmol/L (21-32) Anion Gap 10 (6-14) Blood Urea Nitrogen 103 mg/dL (7-20) Creatinine 2.8 mg/dL (0.6-1.0) Estimated GFR (Cockcroft-Gault) 16.5 Glucose Level 315 mg/dL (70-99) Calcium Level 8.2 mg/dL (8.5-10.1) Phosphorus Level 3.1 mg/dL (2.6-4.7) Magnesium Level 1.5 mg/dL (1.8-2.4) Test 12/13/18 17:42 12/13/18 19:46 12/13/18 20:42 12/13/18 21:42 Glucose (Fingerstick) 276 mg/dL (70-99) 143 mg/dL (70-99) 161 mg/dL (70-99) 182 mg/dL (70-99) Test 12/13/18 22:17 12/14/18 00:11 12/14/18 04:04 12/14/18 05:30 Glucose (Fingerstick) 158 mg/dL (70-99) 181 mg/dL (70-99) 205 mg/dL (70-99) Sodium Level 142 mmol/L (136-145) Potassium Level 3.9 mmol/L (3.5-5.1) Chloride Level 102 mmol/L (98-107) Carbon Dioxide Level 31 mmol/L (21-32) Anion Gap 9 (6-14) Blood Urea Nitrogen 79 mg/dL (7-20) Creatinine 2.0 mg/dL (0.6-1.0) Estimated GFR (Cockcroft-Gault) 24.4 Glucose Level 233 mg/dL (70-99) Calcium Level 8.7 mg/dL (8.5-10.1) Test 12/14/18 07:37 Glucose (Fingerstick) 170 mg/dL (70-99) Medications Current Medications Ondansetron HCl (Zofran) 4 mg PRN Q6HRS PRN IV NAUSEA/VOMITING; Start 12/12/18 at 12:15; Stop 12/13/18 at 10:37; Status DC Prochlorperazine Edisylate (Compazine) 10 mg PRN Q6HRS PRN IV NAUSEA/VOMITING, 2ND CHOICE; Start 12/12/18 at 12:15 Prochlorperazine (Compazine) 25 mg PRN Q12HR PRN AR NAUSEA/VOMITING; Start at 12:15 Al Hydroxide/Mg Hydroxide (Mylanta Plus Xs) 30 ml PRN Q3HRS PRN PO HEARTBURN / GAS; Start 12/12/18 at 12:15 Calcium Carbonate/ Glycine (Tums) 500 mg PRN Q3HRS PRN PO UPSET STOMACH; Start 12/12/18 at 12:15 Zolpidem Tartrate (Ambien) 5 mg PRN QHS PRN PO INSOMNIA, MAY REPEAT IN 1HR; Start 12/12/18 at 12:15 Oxycodone HCl (Roxicodone) 5 mg PRN Q3HRS PRN PO BREAKTHROUGH PAIN; Start 12/12 at 12:15 Morphine Sulfate (Morphine Sulfate) 2 mg PRN Q2HR PRN IV MILD PAIN Last administered on 12/13/18at 20:56; Start 12/12/18 at 12:15 Acetaminophen (Tylenol) 650 mg PRN Q6HRS PRN PO Headaches, Temp > 101.5F; Start 12/12/18 at 12:15 Magnesium Hydroxide (Milk Of Magnesia) 2,400 mg PRN Q12HR PRN PO CONSTIPATION; Start 12/12/18 at 12:15 Bisacodyl (Dulcolax Supp) 10 mg PRN DAILY PRN AR CONSTIPATION; Start 12/12/18 at 12:15; Stop 12/12/18 at 12:26; Status DC Enoxaparin Sodium (Lovenox 40mg Syringe) 40 mg Q24H SQ ; Start 12/12/18 at 13:00 ; Stop 12/12/18 at 13:00; Status DC Sodium Chloride 1,000 ml @ 100 mls/hr Q10H IV Last administered on 12/13/18at 08:42; Start 12/12/18 at 12:15; Stop 12/13/18 at 11:01; Status DC Famotidine (Pepcid Vial) 20 mg QHS IVP Last administered on 12/13/18at 20:39; Start 12/12/18 at 21:00 Acetaminophen (Tylenol Supp) 650 mg PRN Q6HRS PRN RC FEVER; Start 12/12/18 at 12:30 Albuterol Sulfate (Ventolin Neb Soln) 2.5 mg PRN Q6HRS PRN INH SHORTNESS OF BREATH; Start 12/12/18 at 12:30 Bisacodyl (Dulcolax Supp) 10 mg PRN DAILY PRN RC CONSTIPATION; Start 12/12/18 at 12:30 Insulin Glargine (Lantus) 20 units QHS SQ ; Start 12/12/18 at 21:00; Stop at 21:00; Status DC Nystatin (Nystop) 1 ada BID TP Last administered on 12/13/18at 20:40; Start at 13:00 Norepinephrine Bitartrate 250 ml @ 1.875 mls/ hr CONT PRN IV SEE I/O RECORD Last administered on 12/12/18at 18:17; Start 12/12/18 at 12:45; Stop 12/12/18 at 12:45; Status DC Norepinephrine Bitartrate 250 ml @ 1.875 mls/ hr CONT PRN IV SEE I/O RECORD; Start 12/12/18 at 12:30; Status Cancel Levofloxacin/ Dextrose (Levaquin Per Pharmacy) 1 each PRN DAILY PRN MC SEE COMMENTS; Start 12/12/18 at 12:30 Metronidazole 100 ml @ 100 mls/hr Q8HRS IV Last administered on 12/13/18at 05: 53; Start 12/12/18 at 14:00; Stop 12/13/18 at 11:32; Status DC Insulin Glargine (Lantus) 10 units QHS SQ Last administered on 12/12/18at 22:11 ; Start 12/12/18 at 21:00; Stop 12/13/18 at 20:34; Status DC Levofloxacin/ Dextrose 100 ml @ 100 mls/hr Q24H IV Last administered on at 14:11; Start 12/12/18 at 13:00; Stop 12/12/18 at 15:54; Status DC Enoxaparin Sodium (Lovenox 40mg Syringe) 40 mg Q24H SQ ; Start 12/12/18 at 13:00 Fentanyl Citrate (Fentanyl 2ml Vial) 25 mcg PRN Q5MIN PRN IV MILD PAIN; Start 12/12/18 at 14:00; Stop 12/13/18 at 13:59; Status DC Fentanyl Citrate (Fentanyl 2ml Vial) 50 mcg PRN Q5MIN PRN IV MODERATE TO SEVERE PAIN; Start 12/12/18 at 14:00; Stop 12/13/18 at 13:59; Status DC Morphine Sulfate (Morphine Sulfate) 1 mg PRN Q10MIN PRN IV PAIN; Start at 14:15; Stop 12/13/18 at 10:38; Status DC Ringer's Solution 1,000 ml @ 30 mls/hr Q24H IV ; Start 12/12/18 at 13:55; Stop 12/13/18 at 01:54; Status DC Lidocaine HCl (Xylocaine-Mpf 1% 2ml Vial) 2 ml 1X PRN PRN ID IV START; Start at 14:00; Stop 12/13/18 at 13:59; Status DC Hydromorphone HCl (Dilaudid) 0.5 mg PRN Q10MIN PRN IV SEV PAIN, Second choice; Start 12/12/18 at 14:00; Stop 12/13/18 at 13:59; Status DC Prochlorperazine Edisylate (Compazine) 5 mg PACU PRN PRN IV NAUSEA, MRX1; Start 12/12/18 at 14:00; Stop 12/13/18 at 13:59; Status DC Tigecycline 100 mg/Dextrose 100 ml @ 200 mls/hr 1X ONCE IV Last administered on 12/12/18at 17:40; Start 12/12/18 at 15:15; Stop 12/12/18 at 15:44; Status DC Tigecycline 50 mg/ Dextrose 50 ml @ 100 mls/hr Q12H IV Last administered on at 03:57; Start 12/13/18 at 03:00 Rocuronium Bryant (Zemuron) 50 mg STK-MED ONCE .ROUTE ; Start 12/12/18 at 15:37 ; Stop 12/12/18 at 15:39; Status DC Fentanyl Citrate (Fentanyl 2ml Vial) 100 mcg STK-MED ONCE .ROUTE ; Start at 15:37; Stop 12/12/18 at 15:39; Status DC Ketamine HCl (Ketamine) 50 mg STK-MED ONCE .ROUTE ; Start 12/12/18 at 15:49; Stop 12/12/18 at 15:51; Status DC Propofol 20 ml @ As Directed STK-MED ONCE IV ; Start 12/12/18 at 15:49; Stop at 15:51; Status DC Lidocaine HCl (Lidocaine Pf 2% Vial) 5 ml STK-MED ONCE .ROUTE ; Start 12/12/18 at 15:49; Stop 12/12/18 at 15:51; Status DC Dexamethasone Sodium Phosphate (Decadron) 20 mg STK-MED ONCE .ROUTE ; Start at 15:49; Stop 12/12/18 at 15:51; Status DC Ondansetron HCl (Zofran) 4 mg STK-MED ONCE .ROUTE ; Start 12/12/18 at 15:49; Stop 12/12/18 at 15:51; Status DC Phenylephrine HCl (PHENYLEPHRINE in 0.9% NACL PF) 1 mg STK-MED ONCE IV ; Start 12/12/18 at 15:49; Stop 12/12/18 at 15:51; Status DC Desflurane (Suprane) 90 ml STK-MED ONCE IH ; Start 12/12/18 at 15:50; Stop 12/12 at 15:52; Status DC Levofloxacin/ Dextrose 100 ml @ 100 mls/hr Q48H IV Last administered on at 15:13; Start 12/13/18 at 16:00 Esmolol HCl (Brevibloc) 100 mg STK-MED ONCE IV ; Start 12/12/18 at 16:24; Stop 12/12/18 at 16:26; Status DC Rocuronium Bryant (Zemuron) 100 mg STK-MED ONCE .ROUTE ; Start 12/12/18 at 16: 28; Stop 12/12/18 at 16:30; Status DC Phenylephrine HCl (Veto-Synephrine Inj) 10 mg STK-MED ONCE .ROUTE ; Start at 16:41; Stop 12/12/18 at 16:43; Status DC Cellulose (Surgicel Hemostat 4x8) 1 each STK-MED ONCE .ROUTE ; Start 12/12/18 at 16:47; Stop 12/12/18 at 16:49; Status DC Propofol 100 ml @ 0 mls/hr CONT PRN IV SEE PROTOCOL Last administered on at 05:52; Start 12/12/18 at 17:15 Sodium Chloride (Normal Saline Flush) 3 ml QSHIFT PRN IV AFTER MEDS AND BLOOD DRAWS; Start 12/12/18 at 17:30 Hydromorphone HCl (Dilaudid) 1 mg PRN Q3HRS PRN IV PAIN SEVERE; Start 12/12/18 at 17:30 Ondansetron HCl (Zofran) 4 mg PRN Q6HRS PRN IV NAUESA, 1ST CHOICE; Start at 17:30 Midazolam HCl (Versed) 2 mg PRN Q30MIN PRN IV SEE COMMENTS.; Start 12/12/18 at 17:30 Midazolam HCl (Versed) 5 mg STK-MED ONCE .ROUTE ; Start 12/12/18 at 17:23; Stop 12/12/18 at 17:25; Status DC Norepinephrine Bitartrate 250 ml @ 1.875 mls/ hr CONT PRN IV SEE I/O RECORD; Start 12/12/18 at 18:15 Sodium Chloride 1,000 ml @ 1,000 mls/hr 1X ONCE IV Last administered on at 18:45; Start 12/12/18 at 18:15; Stop 12/12/18 at 19:14; Status DC Insulin Human Lispro (HumaLOG) 8 units 1X ONCE SQ Last administered on at 22:15; Start 12/12/18 at 22:30; Stop 12/12/18 at 22:31; Status DC Insulin Human Regular (HumuLIN R VIAL) 10 unit 1X ONCE IV Last administered on 12/13/18at 08:40; Start 12/13/18 at 07:30; Stop 12/13/18 at 07:46; Status DC Insulin Human Lispro (HumaLOG) 6 units 1X ONCE SQ Last administered on at 08:41; Start 12/13/18 at 07:30; Stop 12/13/18 at 07:46; Status DC Insulin Human Lispro (HumaLOG) 0-7 UNITS Q4HRS SQ ; Start 12/13/18 at 08:00; Stop 12/13/18 at 20:34; Status DC Dextrose (Dextrose 50%-Water Syringe) 12.5 gm PRN Q15MIN PRN IV SEE COMMENTS; Start 12/13/18 at 08:00 Sodium Chloride 1,000 ml @ 1,000 mls/hr 1X ONCE IV Last administered on at 10:14; Start 12/13/18 at 10:00; Stop 12/13/18 at 11:00; Status DC Sodium Bicarbonate (Sodium Bicarb Adult 8.4% Syr) 50 meq 1X ONCE IV Last administered on 12/13/18at 10:14; Start 12/13/18 at 10:00; Stop 12/13/18 at 10:08 ; Status DC Insulin Human Regular 150 unit/ Sodium Chloride 151.5 ml @ 0 mls/hr CONT PRN PRN IV PER PROTOCOL; Start 12/13/18 at 11:00; Stop 12/13/18 at 20:34; Status DC Potassium Chloride/Water 100 ml @ 100 mls/hr PRN Q1HR PRN IV SEE COMMENTS; Start 12/13/18 at 11:00 Potassium Chloride/Water 100 ml @ 100 mls/hr PRN Q1HR PRN IV SEE COMMENTS; Start 12/13/18 at 11:00 Potassium Chloride/Water 100 ml @ 100 mls/hr PRN Q1HR PRN IV SEE COMMENTS; Start 12/13/18 at 11:00 Sodium Bicarbonate 50 meq/Sodium Chloride 1,050 ml @ 150 mls/hr Q7H IV Last administered on 12/14/18at 02:26; Start 12/13/18 at 11:00 Albumin Human 500 ml @ 125 mls/hr 1X ONCE IV Last administered on 12/13/18at 14:52; Start 12/13/18 at 11:30; Stop 12/13/18 at 15:29; Status DC Vitamin A/Vitamin D (Vitamin A & D Ointment) 1 ada PRN TID PRN TP SKIN PROTECTION; Start 12/13/18 at 14:00 Magnesium Sulfate/ Dextrose 100 ml @ 25 mls/hr 1X ONCE IV Last administered on 12/13/18at 19:24; Start 12/13/18 at 18:30; Stop 12/13/18 at 22:29; Status DC Potassium Chloride/Water 100 ml @ 100 mls/hr Q1HR IV Last administered on 12/13at 21:42; Start 12/13/18 at 19:00; Stop 12/13/18 at 22:59; Status DC Fentanyl Citrate (Fentanyl 2ml Vial) 25 mcg PRN Q2HR PRN IV PAIN; Start at 18:30 Dextrose/Sodium Chloride 1,000 ml @ 250 mls/hr Q4H IV Last administered on at 20:00; Start 12/13/18 at 20:00; Stop 12/13/18 at 20:34; Status DC Insulin Glargine (Lantus) 20 units QHS SQ Last administered on 12/13/18at 20:46 ; Start 12/13/18 at 21:00 Insulin Human Lispro (HumaLOG) 0-9 UNITS Q4HRS SQ Last administered on at 04:08; Start 12/14/18 at 00:00 Dextrose (Dextrose 50%-Water Syringe) 12.5 gm PRN Q15MIN PRN IV SEE COMMENTS; Start 12/13/18 at 20:30 Albumin Human 500 ml @ 125 mls/hr 1X ONCE IV Last administered on 12/14/18at 00:09; Start 12/13/18 at 23:15; Stop 12/14/18 at 03:14; Status DC Active Scripts Active Reported Potassium Chloride 20 Meq Tablet.er 20 Meq PO TIDWMEALS Roxicodone (Oxycodone HCl) 5 Mg Tablet 5 Mg PO PRN Q4HRS PRN Nystatin 1 Each Powder.ea. 1 Each MC BID Levemir (Insulin Detemir) 100 Unit/1 Ml Vial 20 Unit SQ HS Novolog (Insulin Aspart) 100 Unit/1 Ml Cartridge 0 SQ QIDACHS Guaifenesin 600 Mg Tablet.er 600 Mg PO BID Bisacodyl 10 Mg Supp.rect 10 Mg RC PRN DAILY PRN Alprazolam 1 Mg Tablet 1 Tab PO TID PRN Acetaminophen Supp (Acetaminophen) 650 Mg Supp.rect 650 Mg RC PRN Q6HRS PRN Proair Hfa Inhaler (Albuterol Sulfate) 8.5 Gm Hfa.aer.ad 1 Puff INH PRN Q6HRS PRN Levothyroxine Sodium 75 Mcg Tablet 1 Tab PO DAILY Vitals/I & O Vital Sign - Last 24 Hours 12/13/18 12/13/18 12/13/18 12/13/18 09:00 10:00 10:18 11:00 Pulse 100 86 86 Resp 16 16 16 B/P (MAP) 129/65 (86) 98/52 (67) 99/52 (68) Pulse Ox 100 100 100 100 O2 Delivery CPAP trial CPAP trial Ventilator CPAP trial 12/13/18 12/13/18 12/13/18 12/13/18 11:29 12:00 13:00 13:41 Pulse 106 90 Resp 16 16 B/P (MAP) 86/52 (63) 110/49 (69) Pulse Ox 100 100 100 100 O2 Delivery Ventilator CPAP trial CPAP trial Ventilator 12/13/18 12/13/18 12/13/18 12/13/18 14:00 15:00 15:41 16:00 Pulse 86 104 108 Resp 16 16 16 B/P (MAP) 107/54 (71) 90/47 (61) 109/49 (69) Pulse Ox 100 100 100 98 O2 Delivery CPAP trial CPAP trial Ventilator Nasal Cannula O2 Flow Rate 3.0 12/13/18 12/13/18 12/13/18 12/13/18 17:00 18:00 19:00 20:00 Temp 98.2 98.4 98.2 98.4 Pulse 102 112 92 100 Resp 16 18 18 B/P (MAP) 82/44 (57) 131/72 (91) 92/45 (61) 107/54 (71) Pulse Ox 98 98 99 99 O2 Delivery Nasal Cannula Nasal Cannula Nasal Cannula Nasal Cannula O2 Flow Rate 3.0 3.0 3.0 3.0 12/13/18 12/13/18 12/13/18 12/13/18 20:00 20:56 21:00 21:26 Pulse 92 Resp 16 18 18 B/P (MAP) 92/46 (61) Pulse Ox 99 99 O2 Delivery Nasal Cannula Nasal Cannula Nasal Cannula O2 Flow Rate 3.0 3.0 3.0 12/13/18 12/13/18 12/13/18 12/14/18 22:00 23:00 23:59 00:19 Temp 98.6 98.6 Pulse 92 97 96 Resp 18 18 18 B/P (MAP) 101/46 (64) 100/41 (60) 98/48 (65) Pulse Ox 99 99 99 O2 Delivery Nasal Cannula Nasal Cannula Nasal Cannula Nasal Cannula O2 Flow Rate 3.0 3.0 3.0 3.0 12/14/18 12/14/18 12/14/18 12/14/18 01:00 02:00 03:00 03:58 Pulse 81 78 73 Resp 18 30 29 20 B/P (MAP) 104/38 (60) 116/49 (71) 126/38 (67) Pulse Ox 98 98 99 99 O2 Delivery Nasal Cannula Nasal Cannula Nasal Cannula Nasal Cannula O2 Flow Rate 3.0 3.0 3.0 3.0 12/14/18 12/14/18 12/14/18 12/14/18 04:00 04:00 04:28 05:00 Temp 98.4 98.4 Pulse 82 73 Resp 29 22 B/P (MAP) 150/71 (97) 154/73 (100) Pulse Ox 100 96 99 O2 Delivery Nasal Cannula Nasal Cannula Nasal Cannula Nasal Cannula O2 Flow Rate 3.0 3.0 3.0 3.0 12/14/18 06:00 Pulse 87 Resp 22 B/P (MAP) 154/53 (86) Pulse Ox 99 O2 Delivery Nasal Cannula O2 Flow Rate 3.0 Intake and Output 12/13/18 12/13/18 12/14/18 15:01 23:01 07:01 Intake Total 1876 ml 2505 ml Output Total 2400 ml 1820 ml 1330 ml Balance -2400 ml 56 ml 1175 ml LYNDA AGRAWAL MD Dec 14, 2018 09:00
[2018-12-14] MEDS: NYSTATIN TOPICAL POWDER 15GM BOTTLE. TP SCH ×2 (09:35→21:08)
--- NOTE | 2018-12-14 09:36 | PDOC ---
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 12/14/18 0936: SURGICAL PROGRESS NOTE Subjective resting pain Vital Signs Vital Signs Date Time Temp Pulse Resp B/P (MAP) Pulse Ox O2 Delivery O2 Flow Rate FiO2 12/14/18 06:00 87 22 154/53 (86) 99 Nasal Cannula 3.0 12/14/18 04:00 98.4 98.4 I&O Intake and Output 12/14/18 07:01 Intake Total 4381 ml Output Total 5550 ml Balance -1169 ml Intake IV Total 4381 ml Output Urine Total 5550 ml General: Alert, Cooperative Abdomen: Soft, Other (wound packed, drain in place) Labs Laboratory Tests Test 12/12/18 12:36 12/12/18 14:00 12/12/18 17:00 12/12/18 18:20 Glucose (Fingerstick) 360 mg/dL (70-99) Sodium Level 129 mmol/L (136-145) Potassium Level 3.7 mmol/L (3.5-5.1) Chloride Level 90 mmol/L (98-107) Carbon Dioxide Level 27 mmol/L (21-32) Anion Gap 12 (6-14) Blood Urea Nitrogen 122 mg/dL (7-20) Creatinine 4.0 mg/dL (0.6-1.0) Estimated GFR (Cockcroft-Gault) 10.9 BUN/Creatinine Ratio 31 (6-20) Glucose Level 397 mg/dL (70-99) Calcium Level 8.9 mg/dL (8.5-10.1) Phosphorus Level 3.5 mg/dL (2.6-4.7) Magnesium Level 1.8 mg/dL (1.8-2.4) Total Bilirubin 0.4 mg/dL (0.2-1.0) Aspartate Amino Transf (AST/SGOT) 57 U/L (15-37) Alanine Aminotransferase (ALT/SGPT) 37 U/L (14-59) Alkaline Phosphatase 197 U/L (46-116) Total Protein 6.7 g/dL (6.4-8.2) Albumin 1.6 g/dL (3.4-5.0) Albumin/Globulin Ratio 0.3 (1.0-1.7) Nasal Screen MRSA (PCR) Negative (Negative) O2 Saturation 97 % (92-99) Arterial Blood pH 7.39 (7.35-7.45) Arterial Blood pCO2 at Patient Temp 40 mmHg (35-46) Arterial Blood pO2 at Patient Temp 119 mmHg (65-108) Arterial Blood HCO3 24 mmol/L (21-28) Arterial Blood Base Excess -1 mmol/L (-3-3) FiO2 40 Test 12/12/18 20:55 12/12/18 21:59 12/13/18 06:09 12/13/18 08:45 Lactic Acid Level 1.5 mmol/L (0.4-2.0) Glucose (Fingerstick) 514 mg/dL (70-99) White Blood Count 19.1 x10^3/uL (4.0-11.0) Red Blood Count 3.15 x10^6/uL (3.50-5.40) Hemoglobin 9.5 g/dL (12.0-15.5) Hematocrit 29.3 % (36.0-47.0) Mean Corpuscular Volume 93 fL (79-100) Mean Corpuscular Hemoglobin 30 pg (25-35) Mean Corpuscular Hemoglobin Concent 32 g/dL (31-37) Red Cell Distribution Width 15.1 % (11.5-14.5) Platelet Count 398 x10^3/uL (140-400) Neutrophils (%) (Auto) 90 % (31-73) Lymphocytes (%) (Auto) 5 % (24-48) Monocytes (%) (Auto) 5 % (0-9) Eosinophils (%) (Auto) 0 % (0-3) Basophils (%) (Auto) 0 % (0-3) Neutrophils # (Auto) 17.1 x10^3uL (1.8-7.7) Lymphocytes # (Auto) 0.9 x10^3/uL (1.0-4.8) Monocytes # (Auto) 1.0 x10^3/uL (0.0-1.1) Eosinophils # (Auto) 0.0 x10^3/uL (0.0-0.7) Basophils # (Auto) 0.0 x10^3/uL (0.0-0.2) Segmented Neutrophils % 92 % (35-66) Band Neutrophils % 7 % (0-9) Lymphocytes % 1 % (24-48) Platelet Estimate Adequate (ADEQUATE) Prothrombin Time 16.4 SEC (11.7-14.0) Prothromb Time International Ratio 1.4 (0.8-1.1) Sodium Level 133 mmol/L (136-145) Potassium Level 4.7 mmol/L (3.5-5.1) Chloride Level 93 mmol/L (98-107) Carbon Dioxide Level 20 mmol/L (21-32) Anion Gap 20 (6-14) Blood Urea Nitrogen 113 mg/dL (7-20) Creatinine 3.3 mg/dL (0.6-1.0) Estimated GFR (Cockcroft-Gault) 13.7 Glucose Level 640 mg/dL (70-99) Calcium Level 9.0 mg/dL (8.5-10.1) Phosphorus Level 5.4 mg/dL (2.6-4.7) Magnesium Level 1.9 mg/dL (1.8-2.4) O2 Saturation 97 % (92-99) Arterial Blood pH 7.39 (7.35-7.45) Arterial Blood pCO2 at Patient Temp 33 mmHg (35-46) Arterial Blood pO2 at Patient Temp 131 mmHg (65-108) Arterial Blood HCO3 20 mmol/L (21-28) Arterial Blood Base Excess -5 mmol/L (-3-3) FiO2 35 Test 12/13/18 11:10 12/13/18 11:24 12/13/18 11:50 12/13/18 13:50 O2 Saturation 95 % (92-99) Arterial Blood pH 7.40 (7.35-7.45) Arterial Blood pCO2 at Patient Temp 44 mmHg (35-46) Arterial Blood pO2 at Patient Temp 81 mmHg (65-108) Arterial Blood HCO3 27 mmol/L (21-28) Arterial Blood Base Excess 2 mmol/L (-3-3) FiO2 35 Glucose (Fingerstick) 470 mg/dL (70-99) 437 mg/dL (70-99) Lactic Acid Level 1.9 mmol/L (0.4-2.0) Phosphorus Level 4.9 mg/dL (2.6-4.7) Magnesium Level 1.6 mg/dL (1.8-2.4) Test 12/13/18 14:31 12/13/18 15:03 12/13/18 16:29 12/13/18 17:35 Urine Collection Type Unknown Urine Color Yellow Urine Clarity Clear Urine pH 5.0 Urine Specific [place] 1.020 Urine Protein Negative mg/dL (NEG-TRACE) Urine Glucose (UA) >=1000 mg/dL (NEG) Urine Ketones (Stick) Negative mg/dL (NEG) Urine Blood Small (NEG) Urine Nitrite Negative (NEG) Urine Bilirubin Negative (NEG) Urine Urobilinogen Dipstick 0.2 mg/dL (0.2 mg/dL) Urine Leukocyte Esterase Moderate (NEG) Urine RBC 0 /HPF (0-2) Urine WBC >40 /HPF (0-4) Urine Squamous Epithelial Cells Few /LPF Urine Bacteria 0 /HPF (0-FEW) Urine Mucus Mod /LPF Urine Yeast Present /HPF Glucose (Fingerstick) 417 mg/dL (70-99) 358 mg/dL (70-99) Sodium Level 143 mmol/L (136-145) Potassium Level 3.1 mmol/L (3.5-5.1) Chloride Level 103 mmol/L (98-107) Carbon Dioxide Level 30 mmol/L (21-32) Anion Gap 10 (6-14) Blood Urea Nitrogen 103 mg/dL (7-20) Creatinine 2.8 mg/dL (0.6-1.0) Estimated GFR (Cockcroft-Gault) 16.5 Glucose Level 315 mg/dL (70-99) Calcium Level 8.2 mg/dL (8.5-10.1) Phosphorus Level 3.1 mg/dL (2.6-4.7) Magnesium Level 1.5 mg/dL (1.8-2.4) Test 12/13/18 17:42 12/13/18 19:46 12/13/18 20:42 12/13/18 21:42 Glucose (Fingerstick) 276 mg/dL (70-99) 143 mg/dL (70-99) 161 mg/dL (70-99) 182 mg/dL (70-99) Test 12/13/18 22:17 12/14/18 00:11 12/14/18 04:04 12/14/18 05:30 Glucose (Fingerstick) 158 mg/dL (70-99) 181 mg/dL (70-99) 205 mg/dL (70-99) Sodium Level 142 mmol/L (136-145) Potassium Level 3.9 mmol/L (3.5-5.1) Chloride Level 102 mmol/L (98-107) Carbon Dioxide Level 31 mmol/L (21-32) Anion Gap 9 (6-14) Blood Urea Nitrogen 79 mg/dL (7-20) Creatinine 2.0 mg/dL (0.6-1.0) Estimated GFR (Cockcroft-Gault) 24.4 Glucose Level 233 mg/dL (70-99) Calcium Level 8.7 mg/dL (8.5-10.1) Test 12/14/18 07:37 Glucose (Fingerstick) 170 mg/dL (70-99) Laboratory Tests Test 12/13/18 11:10 12/13/18 11:24 12/13/18 11:50 12/13/18 13:50 O2 Saturation 95 % (92-99) Arterial Blood pH 7.40 (7.35-7.45) Arterial Blood pCO2 at Patient Temp 44 mmHg (35-46) Arterial Blood pO2 at Patient Temp 81 mmHg (65-108) Arterial Blood HCO3 27 mmol/L (21-28) Arterial Blood Base Excess 2 mmol/L (-3-3) FiO2 35 Glucose (Fingerstick) 470 mg/dL (70-99) 437 mg/dL (70-99) Lactic Acid Level 1.9 mmol/L (0.4-2.0) Phosphorus Level 4.9 mg/dL (2.6-4.7) Magnesium Level 1.6 mg/dL (1.8-2.4) Test 12/13/18 14:31 12/13/18 15:03 12/13/18 16:29 12/13/18 17:35 Urine Collection Type Unknown Urine Color Yellow Urine Clarity Clear Urine pH 5.0 Urine Specific [place] 1.020 Urine Protein Negative mg/dL (NEG-TRACE) Urine Glucose (UA) >=1000 mg/dL (NEG) Urine Ketones (Stick) Negative mg/dL (NEG) Urine Blood Small (NEG) Urine Nitrite Negative (NEG) Urine Bilirubin Negative (NEG) Urine Urobilinogen Dipstick 0.2 mg/dL (0.2 mg/dL) Urine Leukocyte Esterase Moderate (NEG) Urine RBC 0 /HPF (0-2) Urine WBC >40 /HPF (0-4) Urine Squamous Epithelial Cells Few /LPF Urine Bacteria 0 /HPF (0-FEW) Urine Mucus Mod /LPF Urine Yeast Present /HPF Glucose (Fingerstick) 417 mg/dL (70-99) 358 mg/dL (70-99) Sodium Level 143 mmol/L (136-145) Potassium Level 3.1 mmol/L (3.5-5.1) Chloride Level 103 mmol/L (98-107) Carbon Dioxide Level 30 mmol/L (21-32) Anion Gap 10 (6-14) Blood Urea Nitrogen 103 mg/dL (7-20) Creatinine 2.8 mg/dL (0.6-1.0) Estimated GFR (Cockcroft-Gault) 16.5 Glucose Level 315 mg/dL (70-99) Calcium Level 8.2 mg/dL (8.5-10.1) Phosphorus Level 3.1 mg/dL (2.6-4.7) Magnesium Level 1.5 mg/dL (1.8-2.4) Test 12/13/18 17:42 12/13/18 19:46 12/13/18 20:42 12/13/18 21:42 Glucose (Fingerstick) 276 mg/dL (70-99) 143 mg/dL (70-99) 161 mg/dL (70-99) 182 mg/dL (70-99) Test 12/13/18 22:17 12/14/18 00:11 12/14/18 04:04 12/14/18 05:30 Glucose (Fingerstick) 158 mg/dL (70-99) 181 mg/dL (70-99) 205 mg/dL (70-99) Sodium Level 142 mmol/L (136-145) Potassium Level 3.9 mmol/L (3.5-5.1) Chloride Level 102 mmol/L (98-107) Carbon Dioxide Level 31 mmol/L (21-32) Anion Gap 9 (6-14) Blood Urea Nitrogen 79 mg/dL (7-20) Creatinine 2.0 mg/dL (0.6-1.0) Estimated GFR (Cockcroft-Gault) 24.4 Glucose Level 233 mg/dL (70-99) Calcium Level 8.7 mg/dL (8.5-10.1) Test 12/14/18 07:37 Glucose (Fingerstick) 170 mg/dL (70-99) Problem List continue wound care RIGO GUALLPA MD 12/14/18 1120: SURGICAL PROGRESS NOTE Assessment/Plan extubated awake, alert wound without fecal drainage continue wound care PUVRI ESPARZA APRN Dec 14, 2018 09:36 RIGO GUALLPA MD Dec 14, 2018 11:20
--- NOTE | 2018-12-14 09:50 | PDOC2 ---
CONSULT Date of Consult Date of Consult DATE: 12/14/18 TIME: 09:44 Reason for Consult Reason for Consult: Left humerus fracture Referring Physician Referring Physician: Felicita Identification/Chief Complaint Chief Complaint Left arm and abdominal pain Source Source: Chart review, Patient History of Present Illness Reason for Visit: Patient was admitted for septic shock and a colon perforation, she underwent surgery for this. She remains in the ICU. She has been extubated. She tells me she feels weak, and has abdominal and humerus, arm pain. Talking with her , she fell on October 25 and sustained a humeral shaft fracture. She had been under the care of an orthopedic surgeon at [facility] for this injury. I was asked to see in consultation while she was here. She denies any difficulty moving her hand on the left side. She does have some difficulty moving her fingers on the right side. Her arm pain has been getting better. She has been in a sling with a posterior splint. Past Medical History Cardiovascular: HTN, Hyperlipidemia Pulmonary: COPD, Other Psych: Anxiety, Depression Musculoskeletal: low back pain, Other Rheumatologic: No pertinent hx Infectious disease: No pertinent hx ENT: No pertinent hx Renal/: No pertinent hx Endocrine: Diabetes Past Surgical History Past Surgical History: Hernia Repair, Hysterectomy, Other (gastric bypass) Family History Family History: No Significant, Family History Unknown Social History No ALCOHOL: none Drugs: None Lives: Long-Term Current Medications Current Medications Current Medications Ondansetron HCl (Zofran) 4 mg PRN Q6HRS PRN IV NAUSEA/VOMITING; Start 12/12/18 at 12:15; Stop 12/13/18 at 10:37; Status DC Prochlorperazine Edisylate (Compazine) 10 mg PRN Q6HRS PRN IV NAUSEA/VOMITING, 2ND CHOICE; Start 12/12/18 at 12:15 Prochlorperazine (Compazine) 25 mg PRN Q12HR PRN [place] NAUSEA/VOMITING; Start at 12:15 Al Hydroxide/Mg Hydroxide (Mylanta Plus Xs) 30 ml PRN Q3HRS PRN PO HEARTBURN / GAS; Start 12/12/18 at 12:15 Calcium Carbonate/ Glycine (Tums) 500 mg PRN Q3HRS PRN PO UPSET STOMACH; Start 12/12/18 at 12:15 Zolpidem Tartrate (Ambien) 5 mg PRN QHS PRN PO INSOMNIA, MAY REPEAT IN 1HR; Start 12/12/18 at 12:15 Oxycodone HCl (Roxicodone) 5 mg PRN Q3HRS PRN PO BREAKTHROUGH PAIN; Start 12/12 at 12:15 Morphine Sulfate (Morphine Sulfate) 2 mg PRN Q2HR PRN IV MILD PAIN Last administered on 12/14/18at 09:34; Start 12/12/18 at 12:15 Acetaminophen (Tylenol) 650 mg PRN Q6HRS PRN PO Headaches, Temp > 101.5F; Start 12/12/18 at 12:15 Magnesium Hydroxide (Milk Of Magnesia) 2,400 mg PRN Q12HR PRN PO CONSTIPATION; Start 12/12/18 at 12:15 Bisacodyl (Dulcolax Supp) 10 mg PRN DAILY PRN NH CONSTIPATION; Start 12/12/18 at 12:15; Stop 12/12/18 at 12:26; Status DC Enoxaparin Sodium (Lovenox 40mg Syringe) 40 mg Q24H SQ ; Start 12/12/18 at 13:00 ; Stop 12/12/18 at 13:00; Status DC Sodium Chloride 1,000 ml @ 100 mls/hr Q10H IV Last administered on 12/13/18at 08:42; Start 12/12/18 at 12:15; Stop 12/13/18 at 11:01; Status DC Famotidine (Pepcid Vial) 20 mg QHS IVP Last administered on 12/13/18at 20:39; Start 12/12/18 at 21:00 Acetaminophen (Tylenol Supp) 650 mg PRN Q6HRS PRN RC FEVER; Start 12/12/18 at 12:30 Albuterol Sulfate (Ventolin Neb Soln) 2.5 mg PRN Q6HRS PRN INH SHORTNESS OF BREATH; Start 12/12/18 at 12:30 Bisacodyl (Dulcolax Supp) 10 mg PRN DAILY PRN RC CONSTIPATION; Start 12/12/18 at 12:30 Insulin Glargine (Lantus) 20 units QHS SQ ; Start 12/12/18 at 21:00; Stop at 21:00; Status DC Nystatin (Nystop) 1 ada BID TP Last administered on 12/14/18at 09:35; Start at 13:00 Norepinephrine Bitartrate 250 ml @ 1.875 mls/ hr CONT PRN IV SEE I/O RECORD Last administered on 12/12/18at 18:17; Start 12/12/18 at 12:45; Stop 12/12/18 at 12:45; Status DC Norepinephrine Bitartrate 250 ml @ 1.875 mls/ hr CONT PRN IV SEE I/O RECORD; Start 12/12/18 at 12:30; Status Cancel Levofloxacin/ Dextrose (Levaquin Per Pharmacy) 1 each PRN DAILY PRN MC SEE COMMENTS; Start 12/12/18 at 12:30 Metronidazole 100 ml @ 100 mls/hr Q8HRS IV Last administered on 12/13/18at 05: 53; Start 12/12/18 at 14:00; Stop 12/13/18 at 11:32; Status DC Insulin Glargine (Lantus) 10 units QHS SQ Last administered on 12/12/18at 22:11 ; Start 12/12/18 at 21:00; Stop 12/13/18 at 20:34; Status DC Levofloxacin/ Dextrose 100 ml @ 100 mls/hr Q24H IV Last administered on at 14:11; Start 12/12/18 at 13:00; Stop 12/12/18 at 15:54; Status DC Enoxaparin Sodium (Lovenox 40mg Syringe) 40 mg Q24H SQ ; Start 12/12/18 at 13:00 Fentanyl Citrate (Fentanyl 2ml Vial) 25 mcg PRN Q5MIN PRN IV MILD PAIN; Start 12/12/18 at 14:00; Stop 12/13/18 at 13:59; Status DC Fentanyl Citrate (Fentanyl 2ml Vial) 50 mcg PRN Q5MIN PRN IV MODERATE TO SEVERE PAIN; Start 12/12/18 at 14:00; Stop 12/13/18 at 13:59; Status DC Morphine Sulfate (Morphine Sulfate) 1 mg PRN Q10MIN PRN IV PAIN; Start at 14:15; Stop 12/13/18 at 10:38; Status DC Ringer's Solution 1,000 ml @ 30 mls/hr Q24H IV ; Start 12/12/18 at 13:55; Stop 12/13/18 at 01:54; Status DC Lidocaine HCl (Xylocaine-Mpf 1% 2ml Vial) 2 ml 1X PRN PRN ID IV START; Start at 14:00; Stop 12/13/18 at 13:59; Status DC Hydromorphone HCl (Dilaudid) 0.5 mg PRN Q10MIN PRN IV SEV PAIN, Second choice; Start 12/12/18 at 14:00; Stop 12/13/18 at 13:59; Status DC Prochlorperazine Edisylate (Compazine) 5 mg PACU PRN PRN IV NAUSEA, MRX1; Start 12/12/18 at 14:00; Stop 12/13/18 at 13:59; Status DC Tigecycline 100 mg/Dextrose 100 ml @ 200 mls/hr 1X ONCE IV Last administered on 12/12/18at 17:40; Start 12/12/18 at 15:15; Stop 12/12/18 at 15:44; Status DC Tigecycline 50 mg/ Dextrose 50 ml @ 100 mls/hr Q12H IV Last administered on at 03:57; Start 12/13/18 at 03:00 Rocuronium [place] (Zemuron) 50 mg STK-MED ONCE .ROUTE ; Start 12/12/18 at 15:37 ; Stop 12/12/18 at 15:39; Status DC Fentanyl Citrate (Fentanyl 2ml Vial) 100 mcg STK-MED ONCE .ROUTE ; Start at 15:37; Stop 12/12/18 at 15:39; Status DC Ketamine HCl (Ketamine) 50 mg STK-MED ONCE .ROUTE ; Start 12/12/18 at 15:49; Stop 12/12/18 at 15:51; Status DC Propofol 20 ml @ As Directed STK-MED ONCE IV ; Start 12/12/18 at 15:49; Stop at 15:51; Status DC Lidocaine HCl (Lidocaine Pf 2% Vial) 5 ml STK-MED ONCE .ROUTE ; Start 12/12/18 at 15:49; Stop 12/12/18 at 15:51; Status DC Dexamethasone Sodium Phosphate (Decadron) 20 mg STK-MED ONCE .ROUTE ; Start at 15:49; Stop 12/12/18 at 15:51; Status DC Ondansetron HCl (Zofran) 4 mg STK-MED ONCE .ROUTE ; Start 12/12/18 at 15:49; Stop 12/12/18 at 15:51; Status DC Phenylephrine HCl (PHENYLEPHRINE in 0.9% NACL PF) 1 mg STK-MED ONCE IV ; Start 12/12/18 at 15:49; Stop 12/12/18 at 15:51; Status DC Desflurane (Suprane) 90 ml STK-MED ONCE IH ; Start 12/12/18 at 15:50; Stop 12/12 at 15:52; Status DC Levofloxacin/ Dextrose 100 ml @ 100 mls/hr Q48H IV Last administered on at 15:13; Start 12/13/18 at 16:00 Esmolol HCl (Brevibloc) 100 mg STK-MED ONCE IV ; Start 12/12/18 at 16:24; Stop 12/12/18 at 16:26; Status DC Rocuronium [place] (Zemuron) 100 mg STK-MED ONCE .ROUTE ; Start 12/12/18 at 16: 28; Stop 12/12/18 at 16:30; Status DC Phenylephrine HCl (Veto-Synephrine Inj) 10 mg STK-MED ONCE .ROUTE ; Start at 16:41; Stop 12/12/18 at 16:43; Status DC Cellulose (Surgicel Hemostat 4x8) 1 each STK-MED ONCE .ROUTE ; Start 12/12/18 at 16:47; Stop 12/12/18 at 16:49; Status DC Propofol 100 ml @ 0 mls/hr CONT PRN IV SEE PROTOCOL Last administered on at 05:52; Start 12/12/18 at 17:15 Sodium Chloride (Normal Saline Flush) 3 ml QSHIFT PRN IV AFTER MEDS AND BLOOD DRAWS; Start 12/12/18 at 17:30 Hydromorphone HCl (Dilaudid) 1 mg PRN Q3HRS PRN IV PAIN SEVERE; Start 12/12/18 at 17:30 Ondansetron HCl (Zofran) 4 mg PRN Q6HRS PRN IV NAUESA, 1ST CHOICE; Start at 17:30 Midazolam HCl (Versed) 2 mg PRN Q30MIN PRN IV SEE COMMENTS.; Start 12/12/18 at 17:30 Midazolam HCl (Versed) 5 mg STK-MED ONCE .ROUTE ; Start 12/12/18 at 17:23; Stop 12/12/18 at 17:25; Status DC Norepinephrine Bitartrate 250 ml @ 1.875 mls/ hr CONT PRN IV SEE I/O RECORD; Start 12/12/18 at 18:15 Sodium Chloride 1,000 ml @ 1,000 mls/hr 1X ONCE IV Last administered on at 18:45; Start 12/12/18 at 18:15; Stop 12/12/18 at 19:14; Status DC Insulin Human Lispro (HumaLOG) 8 units 1X ONCE SQ Last administered on at 22:15; Start 12/12/18 at 22:30; Stop 12/12/18 at 22:31; Status DC Insulin Human Regular (HumuLIN R VIAL) 10 unit 1X ONCE IV Last administered on 12/13/18at 08:40; Start 12/13/18 at 07:30; Stop 12/13/18 at 07:46; Status DC Insulin Human Lispro (HumaLOG) 6 units 1X ONCE SQ Last administered on at 08:41; Start 12/13/18 at 07:30; Stop 12/13/18 at 07:46; Status DC Insulin Human Lispro (HumaLOG) 0-7 UNITS Q4HRS SQ ; Start 12/13/18 at 08:00; Stop 12/13/18 at 20:34; Status DC Dextrose (Dextrose 50%-Water Syringe) 12.5 gm PRN Q15MIN PRN IV SEE COMMENTS; Start 12/13/18 at 08:00 Sodium Chloride 1,000 ml @ 1,000 mls/hr 1X ONCE IV Last administered on at 10:14; Start 12/13/18 at 10:00; Stop 12/13/18 at 11:00; Status DC Sodium Bicarbonate (Sodium Bicarb Adult 8.4% Syr) 50 meq 1X ONCE IV Last administered on 12/13/18at 10:14; Start 12/13/18 at 10:00; Stop 12/13/18 at 10:08 ; Status DC Insulin Human Regular 150 unit/ Sodium Chloride 151.5 ml @ 0 mls/hr CONT PRN PRN IV PER PROTOCOL; Start 12/13/18 at 11:00; Stop 12/13/18 at 20:34; Status DC Potassium Chloride/Water 100 ml @ 100 mls/hr PRN Q1HR PRN IV SEE COMMENTS; Start 12/13/18 at 11:00 Potassium Chloride/Water 100 ml @ 100 mls/hr PRN Q1HR PRN IV SEE COMMENTS; Start 12/13/18 at 11:00 Potassium Chloride/Water 100 ml @ 100 mls/hr PRN Q1HR PRN IV SEE COMMENTS; Start 12/13/18 at 11:00 Sodium Bicarbonate 50 meq/Sodium Chloride 1,050 ml @ 150 mls/hr Q7H IV Last administered on 12/14/18at 09:35; Start 12/13/18 at 11:00 Albumin Human 500 ml @ 125 mls/hr 1X ONCE IV Last administered on 12/13/18at 14:52; Start 12/13/18 at 11:30; Stop 12/13/18 at 15:29; Status DC Vitamin A/Vitamin D (Vitamin A & D Ointment) 1 ada PRN TID PRN TP SKIN PROTECTION; Start 12/13/18 at 14:00 Magnesium Sulfate/ Dextrose 100 ml @ 25 mls/hr 1X ONCE IV Last administered on 12/13/18at 19:24; Start 12/13/18 at 18:30; Stop 12/13/18 at 22:29; Status DC Potassium Chloride/Water 100 ml @ 100 mls/hr Q1HR IV Last administered on 12/13at 21:42; Start 12/13/18 at 19:00; Stop 12/13/18 at 22:59; Status DC Fentanyl Citrate (Fentanyl 2ml Vial) 25 mcg PRN Q2HR PRN IV PAIN; Start at 18:30 Dextrose/Sodium Chloride 1,000 ml @ 250 mls/hr Q4H IV Last administered on at 20:00; Start 12/13/18 at 20:00; Stop 12/13/18 at 20:34; Status DC Insulin Glargine (Lantus) 20 units QHS SQ Last administered on 12/13/18at 20:46 ; Start 12/13/18 at 21:00 Insulin Human Lispro (HumaLOG) 0-9 UNITS Q4HRS SQ Last administered on at 04:08; Start 12/14/18 at 00:00 Dextrose (Dextrose 50%-Water Syringe) 12.5 gm PRN Q15MIN PRN IV SEE COMMENTS; Start 12/13/18 at 20:30 Albumin Human 500 ml @ 125 mls/hr 1X ONCE IV Last administered on 12/14/18at 00:09; Start 12/13/18 at 23:15; Stop 12/14/18 at 03:14; Status DC Active Scripts Active Reported Potassium Chloride 20 Meq Tablet.er 20 Meq PO TIDWMEALS Roxicodone (Oxycodone HCl) 5 Mg Tablet 5 Mg PO PRN Q4HRS PRN Nystatin 1 Each Powder.ea. 1 Each MC BID Levemir (Insulin Detemir) 100 Unit/1 Ml Vial 20 Unit SQ HS Novolog (Insulin Aspart) 100 Unit/1 Ml Cartridge 0 SQ QIDACHS Guaifenesin 600 Mg Tablet.er 600 Mg PO BID Bisacodyl 10 Mg Supp.rect 10 Mg RC PRN DAILY PRN Alprazolam 1 Mg Tablet 1 Tab PO TID PRN Acetaminophen Supp (Acetaminophen) 650 Mg Supp.rect 650 Mg RC PRN Q6HRS PRN Proair Hfa Inhaler (Albuterol Sulfate) 8.5 Gm Hfa.aer.ad 1 Puff INH PRN Q6HRS PRN Levothyroxine Sodium 75 Mcg Tablet 1 Tab PO DAILY Allergies Allergies: Coded Allergies: Penicillins (Verified Allergy, Intermediate, 12/08/16) Sulfa (Sulfonamide Antibiotics) (Verified Allergy, Intermediate, 12/08/16) aspirin (Verified Allergy, Intermediate, 12/08/16) cephalexin (Verified Allergy, Intermediate, 04/19/15) diazepam (Verified Allergy, Intermediate, 12/08/16) diphenhydramine (Verified Allergy, Intermediate, 12/08/16) erythromycin base (Verified Allergy, Intermediate, 12/08/16) ROS General: YES: Fatigue PSYCHOLOGICAL ROS: No: Anxiety, Behavioral Disorder, Concentration difficultie , Decreased libido, Depression, Disorientation, Hallucinations, Hostility, Irritablity, Memory difficulties, Mood Swings, Obsessive thoughts, Physical abuse, Sexual abuse, Sleep disturbances, Suicidal ideation, Other Eyes: No Blurry vision, No Decreased vision, No Double vision, No Dry eyes, No Excessive tearing, No Eye Pain, No Itchy Eyes, No Loss of vision, No Photophobia , No Scotomata, No Uses contacts, No Uses glasses, No Other HEENT: No: Heacaches, Visual Changes, Hearing change, Nasal congestion, Nasal discharge, Oral lesions, Sinus pain, Sore Throat, Epistaxis, Sneezing, Snoring, Tinnitus, Vertigo, Vocal changes, Other ALLERGY AND IMMUNOLOGY: No: Hives, Insect Bite Sensitivity, Itchy/Watery Eyes, Nasal Congestion, Post Nasal Drip, Seasonal Allergies, Other Hematological and Lymphatic: No: Bleeding Problems, Blood Clots, Blood Transfusions, Brusing, Night Sweats, Pallor, Swollen Lymph Nodes, Other Respiratory: No: Cough, Hemoptysis, Orthopnea, Pleuritic Pain, Shortness of breath, SOB with excertion, Sputum Changes, Stridor, Tachypnea, Wheezing, Other Cardiovascular: No Chest Pain, No Palpitations, No Orthopnea, No Paroxysmal Noc. Dyspnea, No Edema, No Lt Headedness, No Other Gastrointestinal: Yes Abdominal Pain Genitourinary: No Dysuria, No Frequency, No Incontinence, No Hematuria, No Retention, No Discharge, No Urgency, No Pain, No Flank Pain, No Other, No , No , No , No , No , No , No Musculoskeletal: Yes Joint Pain, Yes Joint Stiffness Neurological: Yes Numbness/Tingling Skin: No Dry Skin, No Eczema, No Hair Changes, No Lumps, No Mole Changes, No Mottling, No Nail Changes, No Pruritus, No Rash, No Skin Lesion Changes, No Other, No Acne Physical Exam General: Alert, No acute distress HEENT: Atraumatic, EOMI Lungs: Other (respirations turned labored with symmetric chest rise) Heart: Regular rate Abdomen: Other (obese, dressing intact) Extremities: Normal pulses Neuro: Normal speech, Other (normal sensation is present in her left upper extremity. She can extend her fingers as well) Psych/Mental Status: Mood NL MUSCULOSKELETAL: Other (unable to appreciate any gross deformity secondary to body habitus, at her left upper extremity. She has limited range of motion at her shoulder and elbow today) Vitals VITALS Vital Signs Date Time Temp Pulse Resp B/P (MAP) Pulse Ox O2 Delivery O2 Flow Rate FiO2 12/14/18 09:34 20 99 Nasal Cannula 3.0 12/14/18 06:00 87 154/53 (86) 12/14/18 04:00 98.4 98.4 Labs Labs Laboratory Tests Test 12/12/18 12:36 12/12/18 14:00 12/12/18 17:00 12/12/18 18:20 Glucose (Fingerstick) 360 mg/dL (70-99) Sodium Level 129 mmol/L (136-145) Potassium Level 3.7 mmol/L (3.5-5.1) Chloride Level 90 mmol/L (98-107) Carbon Dioxide Level 27 mmol/L (21-32) Anion Gap 12 (6-14) Blood Urea Nitrogen 122 mg/dL (7-20) Creatinine 4.0 mg/dL (0.6-1.0) Estimated GFR (Cockcroft-Gault) 10.9 BUN/Creatinine Ratio 31 (6-20) Glucose Level 397 mg/dL (70-99) Calcium Level 8.9 mg/dL (8.5-10.1) Phosphorus Level 3.5 mg/dL (2.6-4.7) Magnesium Level 1.8 mg/dL (1.8-2.4) Total Bilirubin 0.4 mg/dL (0.2-1.0) Aspartate Amino Transf (AST/SGOT) 57 U/L (15-37) Alanine Aminotransferase (ALT/SGPT) 37 U/L (14-59) Alkaline Phosphatase 197 U/L (46-116) Total Protein 6.7 g/dL (6.4-8.2) Albumin 1.6 g/dL (3.4-5.0) Albumin/Globulin Ratio 0.3 (1.0-1.7) Nasal Screen MRSA (PCR) Negative (Negative) O2 Saturation 97 % (92-99) Arterial Blood pH 7.39 (7.35-7.45) Arterial Blood pCO2 at Patient Temp 40 mmHg (35-46) Arterial Blood pO2 at Patient Temp 119 mmHg (65-108) Arterial Blood HCO3 24 mmol/L (21-28) Arterial Blood Base Excess -1 mmol/L (-3-3) FiO2 40 Test 12/12/18 20:55 1/22/19 21:59 12/13/18 06:09 12/13/18 08:45 Lactic Acid Level 1.5 mmol/L (0.4-2.0) Glucose (Fingerstick) 514 mg/dL (70-99) White Blood Count 19.1 x10^3/uL (4.0-11.0) Red Blood Count 3.15 x10^6/uL (3.50-5.40) Hemoglobin 9.5 g/dL (12.0-15.5) Hematocrit 29.3 % (36.0-47.0) Mean Corpuscular Volume 93 fL (79-100) Mean Corpuscular Hemoglobin 30 pg (25-35) Mean Corpuscular Hemoglobin Concent 32 g/dL (31-37) Red Cell Distribution Width 15.1 % (11.5-14.5) Platelet Count 398 x10^3/uL (140-400) Neutrophils (%) (Auto) 90 % (31-73) Lymphocytes (%) (Auto) 5 % (24-48) Monocytes (%) (Auto) 5 % (0-9) Eosinophils (%) (Auto) 0 % (0-3) Basophils (%) (Auto) 0 % (0-3) Neutrophils # (Auto) 17.1 x10^3uL (1.8-7.7) Lymphocytes # (Auto) 0.9 x10^3/uL (1.0-4.8) Monocytes # (Auto) 1.0 x10^3/uL (0.0-1.1) Eosinophils # (Auto) 0.0 x10^3/uL (0.0-0.7) Basophils # (Auto) 0.0 x10^3/uL (0.0-0.2) Segmented Neutrophils % 92 % (35-66) Band Neutrophils % 7 % (0-9) Lymphocytes % 1 % (24-48) Platelet Estimate Adequate (ADEQUATE) Prothrombin Time 16.4 SEC (11.7-14.0) Prothromb Time International Ratio 1.4 (0.8-1.1) Sodium Level 133 mmol/L (136-145) Potassium Level 4.7 mmol/L (3.5-5.1) Chloride Level 93 mmol/L (98-107) Carbon Dioxide Level 20 mmol/L (21-32) Anion Gap 20 (6-14) Blood Urea Nitrogen 113 mg/dL (7-20) Creatinine 3.3 mg/dL (0.6-1.0) Estimated GFR (Cockcroft-Gault) 13.7 Glucose Level 640 mg/dL (70-99) Calcium Level 9.0 mg/dL (8.5-10.1) Phosphorus Level 5.4 mg/dL (2.6-4.7) Magnesium Level 1.9 mg/dL (1.8-2.4) O2 Saturation 97 % (92-99) Arterial Blood pH 7.39 (7.35-7.45) Arterial Blood pCO2 at Patient Temp 33 mmHg (35-46) Arterial Blood pO2 at Patient Temp 131 mmHg (65-108) Arterial Blood HCO3 20 mmol/L (21-28) Arterial Blood Base Excess -5 mmol/L (-3-3) FiO2 35 Test 12/13/18 11:10 12/13/18 11:24 12/13/18 11:50 12/13/18 13:50 O2 Saturation 95 % (92-99) Arterial Blood pH 7.40 (7.35-7.45) Arterial Blood pCO2 at Patient Temp 44 mmHg (35-46) Arterial Blood pO2 at Patient Temp 81 mmHg (65-108) Arterial Blood HCO3 27 mmol/L (21-28) Arterial Blood Base Excess 2 mmol/L (-3-3) FiO2 35 Glucose (Fingerstick) 470 mg/dL (70-99) 437 mg/dL (70-99) Lactic Acid Level 1.9 mmol/L (0.4-2.0) Phosphorus Level 4.9 mg/dL (2.6-4.7) Magnesium Level 1.6 mg/dL (1.8-2.4) Test 12/13/18 14:31 12/13/18 15:03 12/13/18 16:29 12/13/18 17:35 Urine Collection Type Unknown Urine Color Yellow Urine Clarity Clear Urine pH 5.0 Urine Specific [place] 1.020 Urine Protein Negative mg/dL (NEG-TRACE) Urine Glucose (UA) >=1000 mg/dL (NEG) Urine Ketones (Stick) Negative mg/dL (NEG) Urine Blood Small (NEG) Urine Nitrite Negative (NEG) Urine Bilirubin Negative (NEG) Urine Urobilinogen Dipstick 0.2 mg/dL (0.2 mg/dL) Urine Leukocyte Esterase Moderate (NEG) Urine RBC 0 /HPF (0-2) Urine WBC >40 /HPF (0-4) Urine Squamous Epithelial Cells Few /LPF Urine Bacteria 0 /HPF (0-FEW) Urine Mucus Mod /LPF Urine Yeast Present /HPF Glucose (Fingerstick) 417 mg/dL (70-99) 358 mg/dL (70-99) Sodium Level 143 mmol/L (136-145) Potassium Level 3.1 mmol/L (3.5-5.1) Chloride Level 103 mmol/L (98-107) Carbon Dioxide Level 30 mmol/L (21-32) Anion Gap 10 (6-14) Blood Urea Nitrogen 103 mg/dL (7-20) Creatinine 2.8 mg/dL (0.6-1.0) Estimated GFR (Cockcroft-Gault) 16.5 Glucose Level 315 mg/dL (70-99) Calcium Level 8.2 mg/dL (8.5-10.1) Phosphorus Level 3.1 mg/dL (2.6-4.7) Magnesium Level 1.5 mg/dL (1.8-2.4) Test 12/13/18 17:42 12/13/18 19:46 12/13/18 20:42 12/13/18 21:42 Glucose (Fingerstick) 276 mg/dL (70-99) 143 mg/dL (70-99) 161 mg/dL (70-99) 182 mg/dL (70-99) Test 12/13/18 22:17 12/14/18 00:11 12/14/18 04:04 12/14/18 05:30 Glucose (Fingerstick) 158 mg/dL (70-99) 181 mg/dL (70-99) 205 mg/dL (70-99) Sodium Level 142 mmol/L (136-145) Potassium Level 3.9 mmol/L (3.5-5.1) Chloride Level 102 mmol/L (98-107) Carbon Dioxide Level 31 mmol/L (21-32) Anion Gap 9 (6-14) Blood Urea Nitrogen 79 mg/dL (7-20) Creatinine 2.0 mg/dL (0.6-1.0) Estimated GFR (Cockcroft-Gault) 24.4 Glucose Level 233 mg/dL (70-99) Calcium Level 8.7 mg/dL (8.5-10.1) Test 12/14/18 07:37 Glucose (Fingerstick) 170 mg/dL (70-99) Laboratory Tests Test 12/13/18 11:10 12/13/18 11:24 12/13/18 11:50 12/13/18 13:50 O2 Saturation 95 % (92-99) Arterial Blood pH 7.40 (7.35-7.45) Arterial Blood pCO2 at Patient Temp 44 mmHg (35-46) Arterial Blood pO2 at Patient Temp 81 mmHg (65-108) Arterial Blood HCO3 27 mmol/L (21-28) Arterial Blood Base Excess 2 mmol/L (-3-3) FiO2 35 Glucose (Fingerstick) 470 mg/dL (70-99) 437 mg/dL (70-99) Lactic Acid Level 1.9 mmol/L (0.4-2.0) Phosphorus Level 4.9 mg/dL (2.6-4.7) Magnesium Level 1.6 mg/dL (1.8-2.4) Test 12/13/18 14:31 12/13/18 15:03 12/13/18 16:29 12/13/18 17:35 Urine Collection Type Unknown Urine Color Yellow Urine Clarity Clear Urine pH 5.0 Urine Specific [place] 1.020 Urine Protein Negative mg/dL (NEG-TRACE) Urine Glucose (UA) >=1000 mg/dL (NEG) Urine Ketones (Stick) Negative mg/dL (NEG) Urine Blood Small (NEG) Urine Nitrite Negative (NEG) Urine Bilirubin Negative (NEG) Urine Urobilinogen Dipstick 0.2 mg/dL (0.2 mg/dL) Urine Leukocyte Esterase Moderate (NEG) Urine RBC 0 /HPF (0-2) Urine WBC >40 /HPF (0-4) Urine Squamous Epithelial Cells Few /LPF Urine Bacteria 0 /HPF (0-FEW) Urine Mucus Mod /LPF Urine Yeast Present /HPF Glucose (Fingerstick) 417 mg/dL (70-99) 358 mg/dL (70-99) Sodium Level 143 mmol/L (136-145) Potassium Level 3.1 mmol/L (3.5-5.1) Chloride Level 103 mmol/L (98-107) Carbon Dioxide Level 30 mmol/L (21-32) Anion Gap 10 (6-14) Blood Urea Nitrogen 103 mg/dL (7-20) Creatinine 2.8 mg/dL (0.6-1.0) Estimated GFR (Cockcroft-Gault) 16.5 Glucose Level 315 mg/dL (70-99) Calcium Level 8.2 mg/dL (8.5-10.1) Phosphorus Level 3.1 mg/dL (2.6-4.7) Magnesium Level 1.5 mg/dL (1.8-2.4) Test 12/13/18 17:42 12/13/18 19:46 12/13/18 20:42 12/13/18 21:42 Glucose (Fingerstick) 276 mg/dL (70-99) 143 mg/dL (70-99) 161 mg/dL (70-99) 182 mg/dL (70-99) Test 12/13/18 22:17 12/14/18 00:11 12/14/18 04:04 12/14/18 05:30 Glucose (Fingerstick) 158 mg/dL (70-99) 181 mg/dL (70-99) 205 mg/dL (70-99) Sodium Level 142 mmol/L (136-145) Potassium Level 3.9 mmol/L (3.5-5.1) Chloride Level 102 mmol/L (98-107) Carbon Dioxide Level 31 mmol/L (21-32) Anion Gap 9 (6-14) Blood Urea Nitrogen 79 mg/dL (7-20) Creatinine 2.0 mg/dL (0.6-1.0) Estimated GFR (Cockcroft-Gault) 24.4 Glucose Level 233 mg/dL (70-99) Calcium Level 8.7 mg/dL (8.5-10.1) Test 12/14/18 07:37 Glucose (Fingerstick) 170 mg/dL (70-99) Images Images X-rays of her humerus were interpreted by myself. Report is reviewed. She has a periprosthetic comminuted humeral diaphyseal fracture Assessment/Plan Assessment/Plan Given her history of her abdominal perforation and overall status, and taking into account the callus formation and length of time since her fracture, I do not foresee any operative intervention that would benefit her. I did review the imaging with my colleagues as well. There were in agreement's with this. I would recommend a humeral fracture brace and ordered this from [facility]. COMFORT GARCIA II, MD Dec 14, 2018 09:50
--- NOTE | 2018-12-14 09:57 | PDOC ---
PULMONARY PROGRESS NOTES Subjective extubated 12/13 afternoon doing well on 2 mics of levo Vitals Vital Signs Date Time Temp Pulse Resp B/P (MAP) Pulse Ox O2 Delivery O2 Flow Rate FiO2 12/14/18 09:34 20 99 Nasal Cannula 3.0 12/14/18 06:00 87 154/53 (86) 12/14/18 04:00 98.4 98.4 General: Alert, No acute distress Lungs: Clear Cardiovascular: S1, S2 Abdomen: Soft, Non-tender, Other (obese, wound covered with dressing) Extremities: Other (trace edema) Labs Laboratory Tests Test 12/12/18 12:36 12/12/18 14:00 12/12/18 17:00 12/12/18 18:20 Glucose (Fingerstick) 360 mg/dL (70-99) Sodium Level 129 mmol/L (136-145) Potassium Level 3.7 mmol/L (3.5-5.1) Chloride Level 90 mmol/L (98-107) Carbon Dioxide Level 27 mmol/L (21-32) Anion Gap 12 (6-14) Blood Urea Nitrogen 122 mg/dL (7-20) Creatinine 4.0 mg/dL (0.6-1.0) Estimated GFR (Cockcroft-Gault) 10.9 BUN/Creatinine Ratio 31 (6-20) Glucose Level 397 mg/dL (70-99) Calcium Level 8.9 mg/dL (8.5-10.1) Phosphorus Level 3.5 mg/dL (2.6-4.7) Magnesium Level 1.8 mg/dL (1.8-2.4) Total Bilirubin 0.4 mg/dL (0.2-1.0) Aspartate Amino Transf (AST/SGOT) 57 U/L (15-37) Alanine Aminotransferase (ALT/SGPT) 37 U/L (14-59) Alkaline Phosphatase 197 U/L (46-116) Total Protein 6.7 g/dL (6.4-8.2) Albumin 1.6 g/dL (3.4-5.0) Albumin/Globulin Ratio 0.3 (1.0-1.7) Nasal Screen MRSA (PCR) Negative (Negative) O2 Saturation 97 % (92-99) Arterial Blood pH 7.39 (7.35-7.45) Arterial Blood pCO2 at Patient Temp 40 mmHg (35-46) Arterial Blood pO2 at Patient Temp 119 mmHg (65-108) Arterial Blood HCO3 24 mmol/L (21-28) Arterial Blood Base Excess -1 mmol/L (-3-3) FiO2 40 Test 12/12/18 20:55 12/12/18 21:59 12/13/18 06:09 12/13/18 08:45 Lactic Acid Level 1.5 mmol/L (0.4-2.0) Glucose (Fingerstick) 514 mg/dL (70-99) White Blood Count 19.1 x10^3/uL (4.0-11.0) Red Blood Count 3.15 x10^6/uL (3.50-5.40) Hemoglobin 9.5 g/dL (12.0-15.5) Hematocrit 29.3 % (36.0-47.0) Mean Corpuscular Volume 93 fL (79-100) Mean Corpuscular Hemoglobin 30 pg (25-35) Mean Corpuscular Hemoglobin Concent 32 g/dL (31-37) Red Cell Distribution Width 15.1 % (11.5-14.5) Platelet Count 398 x10^3/uL (140-400) Neutrophils (%) (Auto) 90 % (31-73) Lymphocytes (%) (Auto) 5 % (24-48) Monocytes (%) (Auto) 5 % (0-9) Eosinophils (%) (Auto) 0 % (0-3) Basophils (%) (Auto) 0 % (0-3) Neutrophils # (Auto) 17.1 x10^3uL (1.8-7.7) Lymphocytes # (Auto) 0.9 x10^3/uL (1.0-4.8) Monocytes # (Auto) 1.0 x10^3/uL (0.0-1.1) Eosinophils # (Auto) 0.0 x10^3/uL (0.0-0.7) Basophils # (Auto) 0.0 x10^3/uL (0.0-0.2) Segmented Neutrophils % 92 % (35-66) Band Neutrophils % 7 % (0-9) Lymphocytes % 1 % (24-48) Platelet Estimate Adequate (ADEQUATE) Prothrombin Time 16.4 SEC (11.7-14.0) Prothromb Time International Ratio 1.4 (0.8-1.1) Sodium Level 133 mmol/L (136-145) Potassium Level 4.7 mmol/L (3.5-5.1) Chloride Level 93 mmol/L (98-107) Carbon Dioxide Level 20 mmol/L (21-32) Anion Gap 20 (6-14) Blood Urea Nitrogen 113 mg/dL (7-20) Creatinine 3.3 mg/dL (0.6-1.0) Estimated GFR (Cockcroft-Gault) 13.7 Glucose Level 640 mg/dL (70-99) Calcium Level 9.0 mg/dL (8.5-10.1) Phosphorus Level 5.4 mg/dL (2.6-4.7) Magnesium Level 1.9 mg/dL (1.8-2.4) O2 Saturation 97 % (92-99) Arterial Blood pH 7.39 (7.35-7.45) Arterial Blood pCO2 at Patient Temp 33 mmHg (35-46) Arterial Blood pO2 at Patient Temp 131 mmHg (65-108) Arterial Blood HCO3 20 mmol/L (21-28) Arterial Blood Base Excess -5 mmol/L (-3-3) FiO2 35 Test 12/13/18 11:10 12/13/18 11:24 12/13/18 11:50 12/13/18 13:50 O2 Saturation 95 % (92-99) Arterial Blood pH 7.40 (7.35-7.45) Arterial Blood pCO2 at Patient Temp 44 mmHg (35-46) Arterial Blood pO2 at Patient Temp 81 mmHg (65-108) Arterial Blood HCO3 27 mmol/L (21-28) Arterial Blood Base Excess 2 mmol/L (-3-3) FiO2 35 Glucose (Fingerstick) 470 mg/dL (70-99) 437 mg/dL (70-99) Lactic Acid Level 1.9 mmol/L (0.4-2.0) Phosphorus Level 4.9 mg/dL (2.6-4.7) Magnesium Level 1.6 mg/dL (1.8-2.4) Test 12/13/18 14:31 12/13/18 15:03 12/13/18 16:29 12/13/18 17:35 Urine Collection Type Unknown Urine Color Yellow Urine Clarity Clear Urine pH 5.0 Urine Specific [place] 1.020 Urine Protein Negative mg/dL (NEG-TRACE) Urine Glucose (UA) >=1000 mg/dL (NEG) Urine Ketones (Stick) Negative mg/dL (NEG) Urine Blood Small (NEG) Urine Nitrite Negative (NEG) Urine Bilirubin Negative (NEG) Urine Urobilinogen Dipstick 0.2 mg/dL (0.2 mg/dL) Urine Leukocyte Esterase Moderate (NEG) Urine RBC 0 /HPF (0-2) Urine WBC >40 /HPF (0-4) Urine Squamous Epithelial Cells Few /LPF Urine Bacteria 0 /HPF (0-FEW) Urine Mucus Mod /LPF Urine Yeast Present /HPF Glucose (Fingerstick) 417 mg/dL (70-99) 358 mg/dL (70-99) Sodium Level 143 mmol/L (136-145) Potassium Level 3.1 mmol/L (3.5-5.1) Chloride Level 103 mmol/L (98-107) Carbon Dioxide Level 30 mmol/L (21-32) Anion Gap 10 (6-14) Blood Urea Nitrogen 103 mg/dL (7-20) Creatinine 2.8 mg/dL (0.6-1.0) Estimated GFR (Cockcroft-Gault) 16.5 Glucose Level 315 mg/dL (70-99) Calcium Level 8.2 mg/dL (8.5-10.1) Phosphorus Level 3.1 mg/dL (2.6-4.7) Magnesium Level 1.5 mg/dL (1.8-2.4) Test 12/13/18 17:42 12/13/18 19:46 12/13/18 20:42 12/13/18 21:42 Glucose (Fingerstick) 276 mg/dL (70-99) 143 mg/dL (70-99) 161 mg/dL (70-99) 182 mg/dL (70-99) Test 12/13/18 22:17 12/14/18 00:11 12/14/18 04:04 12/14/18 05:30 Glucose (Fingerstick) 158 mg/dL (70-99) 181 mg/dL (70-99) 205 mg/dL (70-99) Sodium Level 142 mmol/L (136-145) Potassium Level 3.9 mmol/L (3.5-5.1) Chloride Level 102 mmol/L (98-107) Carbon Dioxide Level 31 mmol/L (21-32) Anion Gap 9 (6-14) Blood Urea Nitrogen 79 mg/dL (7-20) Creatinine 2.0 mg/dL (0.6-1.0) Estimated GFR (Cockcroft-Gault) 24.4 Glucose Level 233 mg/dL (70-99) Calcium Level 8.7 mg/dL (8.5-10.1) Test 12/14/18 07:37 Glucose (Fingerstick) 170 mg/dL (70-99) Laboratory Tests Test 12/13/18 11:10 12/13/18 11:24 12/13/18 11:50 12/13/18 13:50 O2 Saturation 95 % (92-99) Arterial Blood pH 7.40 (7.35-7.45) Arterial Blood pCO2 at Patient Temp 44 mmHg (35-46) Arterial Blood pO2 at Patient Temp 81 mmHg (65-108) Arterial Blood HCO3 27 mmol/L (21-28) Arterial Blood Base Excess 2 mmol/L (-3-3) FiO2 35 Glucose (Fingerstick) 470 mg/dL (70-99) 437 mg/dL (70-99) Lactic Acid Level 1.9 mmol/L (0.4-2.0) Phosphorus Level 4.9 mg/dL (2.6-4.7) Magnesium Level 1.6 mg/dL (1.8-2.4) Test 12/13/18 14:31 12/13/18 15:03 12/13/18 16:29 12/13/18 17:35 Urine Collection Type Unknown Urine Color Yellow Urine Clarity Clear Urine pH 5.0 Urine Specific [place] 1.020 Urine Protein Negative mg/dL (NEG-TRACE) Urine Glucose (UA) >=1000 mg/dL (NEG) Urine Ketones (Stick) Negative mg/dL (NEG) Urine Blood Small (NEG) Urine Nitrite Negative (NEG) Urine Bilirubin Negative (NEG) Urine Urobilinogen Dipstick 0.2 mg/dL (0.2 mg/dL) Urine Leukocyte Esterase Moderate (NEG) Urine RBC 0 /HPF (0-2) Urine WBC >40 /HPF (0-4) Urine Squamous Epithelial Cells Few /LPF Urine Bacteria 0 /HPF (0-FEW) Urine Mucus Mod /LPF Urine Yeast Present /HPF Glucose (Fingerstick) 417 mg/dL (70-99) 358 mg/dL (70-99) Sodium Level 143 mmol/L (136-145) Potassium Level 3.1 mmol/L (3.5-5.1) Chloride Level 103 mmol/L (98-107) Carbon Dioxide Level 30 mmol/L (21-32) Anion Gap 10 (6-14) Blood Urea Nitrogen 103 mg/dL (7-20) Creatinine 2.8 mg/dL (0.6-1.0) Estimated GFR (Cockcroft-Gault) 16.5 Glucose Level 315 mg/dL (70-99) Calcium Level 8.2 mg/dL (8.5-10.1) Phosphorus Level 3.1 mg/dL (2.6-4.7) Magnesium Level 1.5 mg/dL (1.8-2.4) Test 12/13/18 17:42 12/13/18 19:46 12/13/18 20:42 12/13/18 21:42 Glucose (Fingerstick) 276 mg/dL (70-99) 143 mg/dL (70-99) 161 mg/dL (70-99) 182 mg/dL (70-99) Test 12/13/18 22:17 12/14/18 00:11 12/14/18 04:04 12/14/18 05:30 Glucose (Fingerstick) 158 mg/dL (70-99) 181 mg/dL (70-99) 205 mg/dL (70-99) Sodium Level 142 mmol/L (136-145) Potassium Level 3.9 mmol/L (3.5-5.1) Chloride Level 102 mmol/L (98-107) Carbon Dioxide Level 31 mmol/L (21-32) Anion Gap 9 (6-14) Blood Urea Nitrogen 79 mg/dL (7-20) Creatinine 2.0 mg/dL (0.6-1.0) Estimated GFR (Cockcroft-Gault) 24.4 Glucose Level 233 mg/dL (70-99) Calcium Level 8.7 mg/dL (8.5-10.1) Test 12/14/18 07:37 Glucose (Fingerstick) 170 mg/dL (70-99) Medications Active Scripts Medications Dose Route/Sig Max Daily Dose Days Date Category Potassium Chloride 20 Meq Tablet.er 20 Meq PO TIDWMEALS 12/20/16 Reported Roxicodone (Oxycodone HCl) 5 Mg Tablet 5 Mg PO PRN Q4HRS PRN 12/20/16 Reported Nystatin 1 Each Powder.ea. 1 Each MC BID 12/20/16 Reported Levemir (Insulin Detemir) 100 Unit/1 Ml Vial 20 Unit SQ HS 12/20/16 Reported Novolog (Insulin Aspart) 100 Unit/1 Ml Cartridge 0 SQ QIDACHS 12/20/16 Reported Guaifenesin 600 Mg Tablet.er 600 Mg PO BID 12/20/16 Reported Bisacodyl 10 Mg Supp.rect 10 Mg RC PRN DAILY PRN 12/20/16 Reported Alprazolam 1 Mg Tablet 1 Tab PO TID PRN 12/20/16 Reported Acetaminophen Supp (Acetaminophen) 650 Mg Supp.rect 650 Mg RC PRN Q6HRS PRN 12/20/16 Reported Proair Hfa Inhaler (Albuterol Sulfate) 8.5 Gm Hfa.aer.ad 1 Puff INH PRN Q6HRS PRN 06/22/16 Reported Levothyroxine Sodium 75 Mcg Tablet 1 Tab PO DAILY 04/20/15 Reported Impression . 1. Acute respiratory failure secondary to combination of septic and hypovolemic shock. extubated 12/13 2. Shock secondary to combination of hypovolemia and septic shock. much improved. 3. 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 4. Acute renal failure with metabolic acidosis. 5. Severe protein-calorie malnutrition. 6. No significant history of tobacco use. 7. Disimpacted left humeral fracture. Plan . 1. Nasal canula 2. Broad-spectrum antibiotics. 3. prn fluid 4. Follow all cultures and wound cultures. 5. Monitor renal function. improving 6. Wean off vasopressor. 7. Antibiotics per Infectious Disease. 8. Nutrition, per General Surgery. 9. Lovenox for DVT prophylaxis. 10. Monitor white cell count. 11. Orthopedic rec eaning once her sepsis is improved. 13. Close monitoring of blood sugar, on insulin per protocol. 14. Discussed with RN, RT and . MITA ASHLEY MD Dec 14, 2018 09:57
[2018-12-14 10:12] LABS: HEMATOCRIT 25.7 % (36.0-47.0); HEMOGLOBIN 8.3 g/dL (12.0-15.5); RED BLOOD COUNT 2.87 x10^6/uL (3.50-5.40); RED CELL DISTRIBUTION WIDTH 14.8 % (11.5-14.5); WHITE BLOOD COUNT 11.7 x10^3/uL (4.0-11.0)
--- NOTE | 2018-12-14 11:23 | PDOC ---
Renal-Progress Notes Subjective Notes Notes NONE History of Present Illness Hx of present illness BETTER Vitals Vitals Vital Signs Date Time Temp Pulse Resp B/P (MAP) Pulse Ox O2 Delivery O2 Flow Rate FiO2 12/14/18 09:34 20 99 Nasal Cannula 3.0 12/14/18 06:00 87 154/53 (86) 12/14/18 04:00 98.4 98.4 Weight Weight [ ] I.O. Intake and Output Intake and Output 12/14/18 07:01 Intake Total 4381 ml Output Total 5550 ml Balance -1169 ml Intake IV Total 4381 ml Output Urine Total 5550 ml Labs Labs Laboratory Tests Test 12/13/18 11:24 12/13/18 11:50 12/13/18 13:50 12/13/18 14:31 Glucose (Fingerstick) 470 mg/dL (70-99) 437 mg/dL (70-99) Lactic Acid Level 1.9 mmol/L (0.4-2.0) Phosphorus Level 4.9 mg/dL (2.6-4.7) Magnesium Level 1.6 mg/dL (1.8-2.4) Urine Collection Type Unknown Urine Color Yellow Urine Clarity Clear Urine pH 5.0 Urine Specific [place] 1.020 Urine Protein Negative mg/dL (NEG-TRACE) Urine Glucose (UA) >=1000 mg/dL (NEG) Urine Ketones (Stick) Negative mg/dL (NEG) Urine Blood Small (NEG) Urine Nitrite Negative (NEG) Urine Bilirubin Negative (NEG) Urine Urobilinogen Dipstick 0.2 mg/dL (0.2 mg/dL) Urine Leukocyte Esterase Moderate (NEG) Urine RBC 0 /HPF (0-2) Urine WBC >40 /HPF (0-4) Urine Squamous Epithelial Cells Few /LPF Urine Bacteria 0 /HPF (0-FEW) Urine Mucus Mod /LPF Urine Yeast Present /HPF Test 12/13/18 15:03 12/13/18 16:29 12/13/18 17:35 12/13/18 17:42 Glucose (Fingerstick) 417 mg/dL (70-99) 358 mg/dL (70-99) 276 mg/dL (70-99) Sodium Level 143 mmol/L (136-145) Potassium Level 3.1 mmol/L (3.5-5.1) Chloride Level 103 mmol/L (98-107) Carbon Dioxide Level 30 mmol/L (21-32) Anion Gap 10 (6-14) Blood Urea Nitrogen 103 mg/dL (7-20) Creatinine 2.8 mg/dL (0.6-1.0) Estimated GFR (Cockcroft-Gault) 16.5 Glucose Level 315 mg/dL (70-99) Calcium Level 8.2 mg/dL (8.5-10.1) Phosphorus Level 3.1 mg/dL (2.6-4.7) Magnesium Level 1.5 mg/dL (1.8-2.4) Test 12/13/18 19:46 12/13/18 20:42 12/13/18 21:42 12/13/18 22:17 Glucose (Fingerstick) 143 mg/dL (70-99) 161 mg/dL (70-99) 182 mg/dL (70-99) 158 mg/dL (70-99) Test 12/14/18 00:11 12/14/18 04:04 12/14/18 05:30 12/14/18 07:37 Glucose (Fingerstick) 181 mg/dL (70-99) 205 mg/dL (70-99) 170 mg/dL (70-99) Sodium Level 142 mmol/L (136-145) Potassium Level 3.9 mmol/L (3.5-5.1) Chloride Level 102 mmol/L (98-107) Carbon Dioxide Level 31 mmol/L (21-32) Anion Gap 9 (6-14) Blood Urea Nitrogen 79 mg/dL (7-20) Creatinine 2.0 mg/dL (0.6-1.0) Estimated GFR (Cockcroft-Gault) 24.4 Glucose Level 233 mg/dL (70-99) Calcium Level 8.7 mg/dL (8.5-10.1) Test 12/14/18 10:00 White Blood Count 11.7 x10^3/uL (4.0-11.0) Red Blood Count 2.87 x10^6/uL (3.50-5.40) Hemoglobin 8.3 g/dL (12.0-15.5) Hematocrit 25.7 % (36.0-47.0) Mean Corpuscular Volume 90 fL (79-100) Mean Corpuscular Hemoglobin 29 pg (25-35) Mean Corpuscular Hemoglobin Concent 32 g/dL (31-37) Red Cell Distribution Width 14.8 % (11.5-14.5) Platelet Count 291 x10^3/uL (140-400) Review of Systems Constitutional: yes: other (SEDATED) Physical Exam General Appearance: no apparent distress Skin: warm Respiratory: decreased breath sounds Heart: S1S2 Abdomen: soft, bowel sounds present Genitourinary: bladder flat Extremities: pulses present Musculoskeletal: Other Assessment Assessment IMP JACOB-BETTER HYPOTENSION LLQ ABSCESS AND EC FISTULA SEPSIS DM II ACIDOSIS-BETTER PLAN ANTIBIOTICS IVF'S PRESSORS NEEDED DEMARCO CHACKO MD Dec 14, 2018 11:23
[2018-12-14] MEDS: ENOXAPARIN 40 MG/0.4 ML SYRINGE. SQ SCH (14:16)
--- NOTE | 2018-12-14 14:22 | NUR ---
Wound Care Pt seen for wound care of L lower abdominal surgical wound, per Dr. Lombardi request. LLQ dressing and packing removed, drainage had soaked through all dressings and onto sheets, with very foul odor. Wound cavity cleaned with saline, area measured and photographed. Exposed bowel covered with Xeroform gauze, then cavity filled with sterile saline moistened vaginal packing, total of 3 packages, then covered with ABDs and tape. Pt repositioned onto right side with pillows, heels floated. Will f/u tomorrow, POC discussed with Alyssa and Jessica, RNs.
--- NOTE | 2018-12-14 18:46 | NUR ---
Patient refused to be turned q2. Educated patient on the importance of skin integrity with turning every 2 hours and prn. Patient started on clear liquid diet, tolerated well. O2 decreased to 2L NC and given Morphine 2mg for pain. Wound care team changed abdominal dressing and will follow up tomorrow.
[2018-12-14] MEDS: FAMOTIDINE 20 MG/2 ML VIAL IVP SCH (21:07)
[2018-12-14] MEDS: INSULIN GLARGINE 300 UNITS/3 ML INSULN.PEN. SQ SCH (23:58)
[2018-12-15] VITALS (19 sets, daily range): BP systolic 96–155; BP diastolic 39–85
[2018-12-15] MEDS: INSULIN LISPRO 300 UNITS/3 ML INSULN.PEN. SQ SCH ×6 (00:07→21:08)
[2018-12-15] MEDS: TIGECYCLINE 50 MG in IV DEXTROSE 5% 50 ML IV SCH ×2 (03:00→14:42)
[2018-12-15] MEDS: MORPHINE SULFATE 4 MG/ML VIAL. IV PRN ×4 (03:12→13:56)
[2018-12-15 05:11] LABS: BASO % 0 % (0-3); EOS % 0 % (0-3); HEMATOCRIT 24.5 % (36.0-47.0); HEMOGLOBIN 7.9 g/dL (12.0-15.5); LYMPH # 1.7 x10^3/uL (1.0-4.8); LYMPH % 17 % (24-48); MEAN CORPUSCULAR HEMOGLOBIN 29 pg (25-35); MEAN CORPUSCULAR HGB CONC 32 g/dL (31-37); MEAN CORPUSCULAR VOLUME 91 fL (79-100); MONO # 0.7 x10^3/uL (0.0-1.1); MONO % 7 % (0-9); NEUT # 7.6 x10^3uL (1.8-7.7); NEUT % 75 % (31-73); PLATELET COUNT 257 x10^3/uL (140-400); RED BLOOD COUNT 2.69 x10^6/uL (3.50-5.40); RED CELL DISTRIBUTION WIDTH 14.7 % (11.5-14.5); WHITE BLOOD COUNT 10.1 x10^3/uL (4.0-11.0)
[2018-12-15 05:26] LABS: ALBUMIN 1.9 g/dL (3.4-5.0); ALBUMIN/GLOBULIN RATIO 0.5 (1.0-1.7); CALCIUM 8.1 mg/dL (8.5-10.1); CREATININE 1.3 mg/dL (0.6-1.0); POTASSIUM 3.9 mmol/L (3.5-5.1); TOTAL BILIRUBIN 0.5 mg/dL (0.2-1.0); TOTAL PROTEIN 5.6 g/dL (6.4-8.2)
--- NOTE | 2018-12-15 07:18 | PDOC ---
Infectious Disease Note Subjective: Subjective Pt complains of pain at surgical site off pressors Denies any nausea, vomiting some cough but improving ROS: ROS Negative except for above. D/W RN Vital Signs: Vital Signs Vital Signs Date Time Temp Pulse Resp B/P (MAP) Pulse Ox O2 Delivery O2 Flow Rate FiO2 12/15/18 06:46 18 97 Nasal Cannula 2.0 12/15/18 06:00 99 119/53 (75) 12/15/18 04:00 99.2 99.2 Physical Exam: PHYSICAL EXAM GENERAL: Alert, awake,mild distress HEENT: Normocephalic, atraumatic. Anicteric. LUNGS: Decreased breath sounds at the base, otherwise clear. No wheezing. HEART: S1, S2 with no gallops or murmurs. ABDOMEN: Soft, obese. Bowel sounds present. Postop Dressing in place intact , dry EXTREMITIES: trace edema, no cyanosis. Chronic venous stasis changes present. NEUROLOGIC: Alert. 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 PSYCHIATRIC: Affect is appropriate. Medications: Inpatient Meds: Current Medications Medications (Trade) Dose Ordered Sig/Kaleb Start Time Stop Time Status Last Admin Dose Admin Acetaminophen (Tylenol Supp) 650 mg PRN Q6HRS PRN 12/12/18 12:30 Acetaminophen (Tylenol) 650 mg PRN Q6HRS PRN 12/12/18 12:15 Al Hydroxide/Mg Hydroxide (Mylanta Plus Xs) 30 ml PRN Q3HRS PRN 12/12/18 12:15 Albumin Human 500 ml @ 125 mls/hr 1X ONCE 12/13/18 23:15 12/14/18 03:14 DC 12/14/18 00:09 125 MLS/HR Albuterol Sulfate (Ventolin Neb Soln) 2.5 mg PRN Q6HRS PRN 12/12/18 12:30 12/15/18 04:17 2.5 MG Bisacodyl (Dulcolax Supp) 10 mg PRN DAILY PRN 12/12/18 12:30 Calcium Carbonate/ Glycine (Tums) 500 mg PRN Q3HRS PRN 12/12/18 12:15 Cellulose (Surgicel Hemostat 4x8) 1 each STK-MED ONCE 12/12/18 16:47 12/12/18 16:49 DC Desflurane (Suprane) 90 ml STK-MED ONCE 12/12/18 15:50 12/12/18 15:52 DC Dexamethasone Sodium Phosphate (Decadron) 20 mg STK-MED ONCE 12/12/18 15:49 12/12/18 15:51 DC Dextrose (Dextrose 50%-Water Syringe) 12.5 gm PRN Q15MIN PRN 12/13/18 20:30 Dextrose/Sodium Chloride 1,000 ml @ 250 mls/hr Q4H 12/13/18 20:00 12/13/18 20:34 DC 12/13/18 20:00 250 MLS/HR Enoxaparin Sodium (Lovenox 40mg Syringe) 40 mg Q24H 12/12/18 13:00 12/14/18 14:16 40 MG Esmolol HCl (Brevibloc) 100 mg STK-MED ONCE 12/12/18 16:24 12/12/18 16:26 DC Famotidine (Pepcid Vial) 20 mg QHS 12/12/18 21:00 12/14/18 21:07 20 MG Fentanyl Citrate (Fentanyl 2ml Vial) 25 mcg PRN Q2HR PRN 12/13/18 18:30 Hydromorphone HCl (Dilaudid) 1 mg PRN Q3HRS PRN 12/12/18 17:30 Insulin Glargine (Lantus) 20 units QHS 12/13/18 21:00 12/14/18 23:58 20 UNITS Insulin Human Lispro (HumaLOG) 0-9 UNITS Q4HRS 12/14/18 00:00 12/15/18 00:07 4 UNITS Insulin Human Regular (HumuLIN R VIAL) 10 unit 1X ONCE 12/13/18 07:30 12/13/18 07:46 DC 12/13/18 08:40 10 UNIT Insulin Human Regular 150 unit/ Sodium Chloride 151.5 ml @ 0 mls/hr CONT PRN PRN 12/13/18 11:00 12/13/18 20:34 DC Ketamine HCl (Ketamine) 50 mg STK-MED ONCE 12/12/18 15:49 12/12/18 15:51 DC Levofloxacin/ Dextrose 150 ml @ 100 mls/hr Q48H 12/15/18 16:00 Levofloxacin/ Dextrose (Levaquin Per Pharmacy) 1 each PRN DAILY PRN 12/12/18 12:30 Lidocaine HCl (Lidocaine Pf 2% Vial) 5 ml STK-MED ONCE 12/12/18 15:49 12/12/18 15:51 DC Lidocaine HCl (Xylocaine-Mpf 1% 2ml Vial) 2 ml 1X PRN PRN 12/12/18 14:00 12/13/18 13:59 DC Magnesium Hydroxide (Milk Of Magnesia) 2,400 mg PRN Q12HR PRN 12/12/18 12:15 Magnesium Sulfate/ Dextrose 100 ml @ 25 mls/hr 1X ONCE 12/13/18 18:30 12/13/18 22:29 DC 12/13/18 19:24 25 MLS/HR Metronidazole 100 ml @ 100 mls/hr Q8HRS 12/12/18 14:00 12/13/18 11:32 DC 12/13/18 05:53 100 MLS/HR Midazolam HCl (Versed) 5 mg STK-MED ONCE 12/12/18 17:23 12/12/18 17:25 DC Morphine Sulfate (Morphine Sulfate) 1 mg PRN Q10MIN PRN 12/12/18 14:15 12/13/18 10:38 DC Norepinephrine Bitartrate 250 ml @ 1.875 mls/ hr CONT PRN 12/12/18 18:15 Nystatin (Nystop) 1 ada BID 12/12/18 13:00 12/14/18 21:08 1 ADA Ondansetron HCl (Zofran) 4 mg PRN Q6HRS PRN 12/12/18 17:30 Oxycodone HCl (Roxicodone) 5 mg PRN Q3HRS PRN 12/12/18 12:15 Phenylephrine HCl (Veto-Synephrine Inj) 10 mg STK-MED ONCE 12/12/18 16:41 12/12/18 16:43 DC Phenylephrine HCl (PHENYLEPHRINE in 0.9% NACL PF) 1 mg STK-MED ONCE 12/12/18 15:49 12/12/18 15:51 DC Potassium Chloride/Water 100 ml @ 100 mls/hr Q1HR 12/13/18 19:00 12/13/18 22:59 DC 12/13/18 21:42 100 MLS/HR Prochlorperazine (Compazine) 25 mg PRN Q12HR PRN 12/12/18 12:15 Prochlorperazine Edisylate (Compazine) 5 mg PACU PRN PRN 12/12/18 14:00 12/13/18 13:59 DC Propofol 100 ml @ 0 mls/hr CONT PRN 12/12/18 17:15 12/14/18 13:15 DC 12/13/18 05:52 11.9 MLS/HR Ringer's Solution 1,000 ml @ 30 mls/hr Q24H 12/12/18 13:55 12/13/18 01:54 DC Rocuronium Woody (Zemuron) 100 mg STK-MED ONCE 12/12/18 16:28 12/12/18 16:30 DC Sodium Bicarbonate 50 meq/Sodium Chloride 1,050 ml @ 150 mls/hr Q7H 12/13/18 11:00 12/14/18 23:49 150 MLS/HR Sodium Bicarbonate (Sodium Bicarb Adult 8.4% Syr) 50 meq 1X ONCE 12/13/18 10:00 12/13/18 10:08 DC 12/13/18 10:14 50 MEQ Sodium Chloride 1,000 ml @ 1,000 mls/hr 1X ONCE 12/13/18 10:00 12/13/18 11:00 DC 12/13/18 10:14 1,000 MLS/HR Sodium Chloride (Normal Saline Flush) 3 ml QSHIFT PRN 12/12/18 17:30 Tigecycline 100 mg/Dextrose 100 ml @ 200 mls/hr 1X ONCE 12/12/18 15:15 12/12/18 15:44 DC 12/12/18 17:40 200 MLS/HR Tigecycline 50 mg/ Dextrose 50 ml @ 100 mls/hr Q12H 12/13/18 03:00 12/15/18 03:00 100 MLS/HR Vitamin A/Vitamin D (Vitamin A & D Ointment) 1 ada PRN TID PRN 12/13/18 14:00 Zolpidem Tartrate (Ambien) 5 mg PRN QHS PRN 12/12/18 12:15 Labs: Lab Laboratory Tests Test 12/14/18 07:37 12/14/18 10:00 12/14/18 12:04 12/14/18 17:33 Glucose (Fingerstick) 170 mg/dL (70-99) 165 mg/dL (70-99) 224 mg/dL (70-99) White Blood Count 11.7 x10^3/uL (4.0-11.0) Red Blood Count 2.87 x10^6/uL (3.50-5.40) Hemoglobin 8.3 g/dL (12.0-15.5) Hematocrit 25.7 % (36.0-47.0) Mean Corpuscular Volume 90 fL (79-100) Mean Corpuscular Hemoglobin 29 pg (25-35) Mean Corpuscular Hemoglobin Concent 32 g/dL (31-37) Red Cell Distribution Width 14.8 % (11.5-14.5) Platelet Count 291 x10^3/uL (140-400) Test 12/14/18 20:03 12/14/18 23:54 12/15/18 05:00 Glucose (Fingerstick) 147 mg/dL (70-99) 182 mg/dL (70-99) 158 mg/dL (70-99) White Blood Count 10.1 x10^3/uL (4.0-11.0) Red Blood Count 2.69 x10^6/uL (3.50-5.40) Hemoglobin 7.9 g/dL (12.0-15.5) Hematocrit 24.5 % (36.0-47.0) Mean Corpuscular Volume 91 fL (79-100) Mean Corpuscular Hemoglobin 29 pg (25-35) Mean Corpuscular Hemoglobin Concent 32 g/dL (31-37) Red Cell Distribution Width 14.7 % (11.5-14.5) Platelet Count 257 x10^3/uL (140-400) Neutrophils (%) (Auto) 75 % (31-73) Lymphocytes (%) (Auto) 17 % (24-48) Monocytes (%) (Auto) 7 % (0-9) Eosinophils (%) (Auto) 0 % (0-3) Basophils (%) (Auto) 0 % (0-3) Neutrophils # (Auto) 7.6 x10^3uL (1.8-7.7) Lymphocytes # (Auto) 1.7 x10^3/uL (1.0-4.8) Monocytes # (Auto) 0.7 x10^3/uL (0.0-1.1) Eosinophils # (Auto) 0.0 x10^3/uL (0.0-0.7) Basophils # (Auto) 0.0 x10^3/uL (0.0-0.2) Sodium Level 142 mmol/L (136-145) Potassium Level 3.9 mmol/L (3.5-5.1) Chloride Level 102 mmol/L (98-107) Carbon Dioxide Level 36 mmol/L (21-32) Anion Gap 4 (6-14) Blood Urea Nitrogen 65 mg/dL (7-20) Creatinine 1.3 mg/dL (0.6-1.0) Estimated GFR (Cockcroft-Gault) 40.0 BUN/Creatinine Ratio 50 (6-20) Glucose Level 171 mg/dL (70-99) Calcium Level 8.1 mg/dL (8.5-10.1) Total Bilirubin 0.5 mg/dL (0.2-1.0) Aspartate Amino Transf (AST/SGOT) 19 U/L (15-37) Alanine Aminotransferase (ALT/SGPT) 22 U/L (14-59) Alkaline Phosphatase 147 U/L (46-116) Total Protein 5.6 g/dL (6.4-8.2) Albumin 1.9 g/dL (3.4-5.0) Albumin/Globulin Ratio 0.5 (1.0-1.7) Micro Sputum yeast abdo abscess neg so far RUN DATE: 12/14/18 PAGE 1 RUN TIME: 1622 [facility] [address] [place] [address] Conner Aguila M.D., [employer] Operator PATIENT: CASS CHAPARRO ACCT: [id number] LOC: 1 [facility] U : [id number] AGE/SX: 73/F ROOM: 108 REG : 12/12/[address]: MERY DUONG MD : [id number] BED: 1 DIS : STATUS: ADM IN TLOC: SPEC #: [id number] MAY: 12/12/18 STATUS: RES REQ #: [id number] RECD: 12/12/[address] [facility] [address]: MERY DUONG MD SOURCE: ABDOMEN ENTR: 12/12/[address]: DELGADO PANDEY MD SPDC: MITA CORBIN MD, LEE V MD MADSEN, LISA M MD ORDERED: ANAER/AEROB/GS Procedure Result ANAEROBIC-AEROBIC CULTURE PENDING ANAEROBIC RES 1 PENDING AEROBIC CULT PENDING AEROBIC RES 1 PENDING GRAM STAIN Final Final report GRAM STAIN RES 1 Final Comment No white blood cells seen. GRAM STAIN RES 2 Final No organisms seen Performed at: [address], [place], [place] [id number] [employer] Department Supervisor: IAN Sharpe MD, Phone: [phone] Objective: Assessment: 1. Septic shock, .Source Abdominal wall abscess ,improved 2. Left abdominal wall abscess ; s/p I and D Dec 12 2018, CT revealing focal loop of descending colon with complex fluid collection in the hernia sac, left lower quadrant Left anterolateral ostomy versus other loop of descending colon containing hernia. cult pending so far 3.Acute resp failure postop ;sputum yeast + likely contamination 4. History of multiple surgeries. 5. Lactic acidosis from above. 6. Obesity. 7. Diabetes. 8. Right upper extremity peripheral neuropathy. 9. Left upper extremity fracture.Ortho evaluated pt 10. Hyponatremia. 11. Protein-calorie malnutrition, present on admission. 12. Abnormal liver function tests. 13. History of multiple allergies Plan: Plan of Care cont levaquin and tigecycline for now will deescalate depending on cult results f/u BC from [facility],neg so far wound management per Gen surgery f/u labs in am f/u intra-operative cults December 12, 2018 d/w RN D/W at bedside DELGADO PANDEY MD Dec 15, 2018 07:18
[2018-12-15] MEDS: SODIUM BICARBONATE VIAL 50 MEQ in IV 1/2 NORMAL SALINE 1,000 ML IV SCH (07:53)
[2018-12-15] MEDS: NYSTATIN TOPICAL POWDER 15GM BOTTLE. TP SCH ×2 (09:01→20:45)
--- NOTE | 2018-12-15 09:19 | PDOC ---
PROGRESS NOTES Chief Complaint Chief Complaint LLQ abscess, colocutaneous fistula with perforation morbid obesity diabetes JACOB Septic shock History of Present Illness History of Present Illness 73-year-old female SNF resident w/ PMHx DM, HTN transferred from [facility] 2/2 septic shock from left-sided abdominal wound. Now in the ICU is hypotensive with a map of 56-59. Started on Levaquin and Flagyl empirically. She was found to have a colon perforation and went to OR for colotomy repair, biopsy, and wide area of debridement and returned to ICU on ventilator to recover from surgery. 12/13: Overnight became hyperglycemic. given 10u lispro and 10u lantus, still elevated glucose this morning. BUN returned > 110 this morning, making urine, successfully extubated. Insulin GTT started 12/14: Gap closed yesterday, glucose came down below 200 on multiple checks. She is feeling very weak. still on levophed. Nephrology consulted for uremia Overnight glucose improved. Off levophed. She did not sleep well, c/o back pain and her mind racing. Belching, not passing flatus. Has an appetite, eating jello. No SOB or CP. Cr down to 1.3 today Plan: LLQ abscess, colocutaneous fistula with perforation - ID on board - tigecycline + levaquin Morbid obesity Diabetes - glargine insulin and sliding scale q4 hours today. JACOB - IVF, appreciate nephrology, bicarb infusion, would like to avoid dialysis Septic shock - IVF and antibiotics Ok for transfer to floor today Vitals Vitals Vital Signs Date Time Temp Pulse Resp B/P (MAP) Pulse Ox O2 Delivery O2 Flow Rate FiO2 12/15/18 09:01 22 98 Nasal Cannula 2.0 12/15/18 09:00 109 117/47 (70) 12/15/18 08:00 98.0 98.0 Physical Exam Physical Exam GENERAL: Alert, awake,mild distress HEENT: Normocephalic, atraumatic. Anicteric. LUNGS: Decreased breath sounds at the base, otherwise clear. No wheezing. HEART: S1, S2 with no gallops or murmurs. ABDOMEN: Soft, obese. Bowel sounds present. Postop Dressing in place intact , dry EXTREMITIES: trace edema, no cyanosis. Chronic venous stasis changes present. NEUROLOGIC: Alert. 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 PSYCHIATRIC: Affect is appropriate. General: Alert, No acute distress Heart: Regular rate Lungs: Clear Abdomen: Other (obese, dressing intact) Extremities: Normal pulses Skin: No breakdown Labs LABS Laboratory Tests Test 12/14/18 10:00 12/14/18 12:04 12/14/18 17:33 12/14/18 20:03 White Blood Count 11.7 x10^3/uL (4.0-11.0) Red Blood Count 2.87 x10^6/uL (3.50-5.40) Hemoglobin 8.3 g/dL (12.0-15.5) Hematocrit 25.7 % (36.0-47.0) Mean Corpuscular Volume 90 fL (79-100) Mean Corpuscular Hemoglobin 29 pg (25-35) Mean Corpuscular Hemoglobin Concent 32 g/dL (31-37) Red Cell Distribution Width 14.8 % (11.5-14.5) Platelet Count 291 x10^3/uL (140-400) Glucose (Fingerstick) 165 mg/dL (70-99) 224 mg/dL (70-99) 147 mg/dL (70-99) Test 12/14/18 23:54 12/15/18 05:00 12/15/18 07:53 Glucose (Fingerstick) 182 mg/dL (70-99) 158 mg/dL (70-99) 141 mg/dL (70-99) White Blood Count 10.1 x10^3/uL (4.0-11.0) Red Blood Count 2.69 x10^6/uL (3.50-5.40) Hemoglobin 7.9 g/dL (12.0-15.5) Hematocrit 24.5 % (36.0-47.0) Mean Corpuscular Volume 91 fL (79-100) Mean Corpuscular Hemoglobin 29 pg (25-35) Mean Corpuscular Hemoglobin Concent 32 g/dL (31-37) Red Cell Distribution Width 14.7 % (11.5-14.5) Platelet Count 257 x10^3/uL (140-400) Neutrophils (%) (Auto) 75 % (31-73) Lymphocytes (%) (Auto) 17 % (24-48) Monocytes (%) (Auto) 7 % (0-9) Eosinophils (%) (Auto) 0 % (0-3) Basophils (%) (Auto) 0 % (0-3) Neutrophils # (Auto) 7.6 x10^3uL (1.8-7.7) Lymphocytes # (Auto) 1.7 x10^3/uL (1.0-4.8) Monocytes # (Auto) 0.7 x10^3/uL (0.0-1.1) Eosinophils # (Auto) 0.0 x10^3/uL (0.0-0.7) Basophils # (Auto) 0.0 x10^3/uL (0.0-0.2) Sodium Level 142 mmol/L (136-145) Potassium Level 3.9 mmol/L (3.5-5.1) Chloride Level 102 mmol/L (98-107) Carbon Dioxide Level 36 mmol/L (21-32) Anion Gap 4 (6-14) Blood Urea Nitrogen 65 mg/dL (7-20) Creatinine 1.3 mg/dL (0.6-1.0) Estimated GFR (Cockcroft-Gault) 40.0 BUN/Creatinine Ratio 50 (6-20) Glucose Level 171 mg/dL (70-99) Calcium Level 8.1 mg/dL (8.5-10.1) Magnesium Level 1.9 mg/dL (1.8-2.4) Total Bilirubin 0.5 mg/dL (0.2-1.0) Aspartate Amino Transf (AST/SGOT) 19 U/L (15-37) Alanine Aminotransferase (ALT/SGPT) 22 U/L (14-59) Alkaline Phosphatase 147 U/L (46-116) Total Protein 5.6 g/dL (6.4-8.2) Albumin 1.9 g/dL (3.4-5.0) Albumin/Globulin Ratio 0.5 (1.0-1.7) Comment Review of Relevant I have reviewed the following items leif (where applicable) has been applied. Labs Laboratory Tests Test 12/13/18 11:10 12/13/18 11:24 12/13/18 11:50 12/13/18 13:50 O2 Saturation 95 % (92-99) Arterial Blood pH 7.40 (7.35-7.45) Arterial Blood pCO2 at Patient Temp 44 mmHg (35-46) Arterial Blood pO2 at Patient Temp 81 mmHg (65-108) Arterial Blood HCO3 27 mmol/L (21-28) Arterial Blood Base Excess 2 mmol/L (-3-3) FiO2 35 Glucose (Fingerstick) 470 mg/dL (70-99) 437 mg/dL (70-99) Lactic Acid Level 1.9 mmol/L (0.4-2.0) Phosphorus Level 4.9 mg/dL (2.6-4.7) Magnesium Level 1.6 mg/dL (1.8-2.4) Test 12/13/18 14:31 12/13/18 15:03 12/13/18 16:29 12/13/18 17:35 Urine Collection Type Unknown Urine Color Yellow Urine Clarity Clear Urine pH 5.0 Urine Specific Howe 1.020 Urine Protein Negative mg/dL (NEG-TRACE) Urine Glucose (UA) >=1000 mg/dL (NEG) Urine Ketones (Stick) Negative mg/dL (NEG) Urine Blood Small (NEG) Urine Nitrite Negative (NEG) Urine Bilirubin Negative (NEG) Urine Urobilinogen Dipstick 0.2 mg/dL (0.2 mg/dL) Urine Leukocyte Esterase Moderate (NEG) Urine RBC 0 /HPF (0-2) Urine WBC >40 /HPF (0-4) Urine Squamous Epithelial Cells Few /LPF Urine Bacteria 0 /HPF (0-FEW) Urine Mucus Mod /LPF Urine Yeast Present /HPF Glucose (Fingerstick) 417 mg/dL (70-99) 358 mg/dL (70-99) Sodium Level 143 mmol/L (136-145) Potassium Level 3.1 mmol/L (3.5-5.1) Chloride Level 103 mmol/L (98-107) Carbon Dioxide Level 30 mmol/L (21-32) Anion Gap 10 (6-14) Blood Urea Nitrogen 103 mg/dL (7-20) Creatinine 2.8 mg/dL (0.6-1.0) Estimated GFR (Cockcroft-Gault) 16.5 Glucose Level 315 mg/dL (70-99) Calcium Level 8.2 mg/dL (8.5-10.1) Phosphorus Level 3.1 mg/dL (2.6-4.7) Magnesium Level 1.5 mg/dL (1.8-2.4) Test 12/13/18 17:42 12/13/18 19:46 12/13/18 20:42 12/13/18 21:42 Glucose (Fingerstick) 276 mg/dL (70-99) 143 mg/dL (70-99) 161 mg/dL (70-99) 182 mg/dL (70-99) Test 12/13/18 22:17 12/14/18 00:11 12/14/18 04:04 12/14/18 05:30 Glucose (Fingerstick) 158 mg/dL (70-99) 181 mg/dL (70-99) 205 mg/dL (70-99) Sodium Level 142 mmol/L (136-145) Potassium Level 3.9 mmol/L (3.5-5.1) Chloride Level 102 mmol/L (98-107) Carbon Dioxide Level 31 mmol/L (21-32) Anion Gap 9 (6-14) Blood Urea Nitrogen 79 mg/dL (7-20) Creatinine 2.0 mg/dL (0.6-1.0) Estimated GFR (Cockcroft-Gault) 24.4 Glucose Level 233 mg/dL (70-99) Calcium Level 8.7 mg/dL (8.5-10.1) Test 12/14/18 07:37 12/14/18 10:00 12/14/18 12:04 12/14/18 17:33 Glucose (Fingerstick) 170 mg/dL (70-99) 165 mg/dL (70-99) 224 mg/dL (70-99) White Blood Count 11.7 x10^3/uL (4.0-11.0) Red Blood Count 2.87 x10^6/uL (3.50-5.40) Hemoglobin 8.3 g/dL (12.0-15.5) Hematocrit 25.7 % (36.0-47.0) Mean Corpuscular Volume 90 fL (79-100) Mean Corpuscular Hemoglobin 29 pg (25-35) Mean Corpuscular Hemoglobin Concent 32 g/dL (31-37) Red Cell Distribution Width 14.8 % (11.5-14.5) Platelet Count 291 x10^3/uL (140-400) Test 12/14/18 20:03 12/14/18 23:54 12/15/18 05:00 12/15/18 07:53 Glucose (Fingerstick) 147 mg/dL (70-99) 182 mg/dL (70-99) 158 mg/dL (70-99) 141 mg/dL (70-99) White Blood Count 10.1 x10^3/uL (4.0-11.0) Red Blood Count 2.69 x10^6/uL (3.50-5.40) Hemoglobin 7.9 g/dL (12.0-15.5) Hematocrit 24.5 % (36.0-47.0) Mean Corpuscular Volume 91 fL (79-100) Mean Corpuscular Hemoglobin 29 pg (25-35) Mean Corpuscular Hemoglobin Concent 32 g/dL (31-37) Red Cell Distribution Width 14.7 % (11.5-14.5) Platelet Count 257 x10^3/uL (140-400) Neutrophils (%) (Auto) 75 % (31-73) Lymphocytes (%) (Auto) 17 % (24-48) Monocytes (%) (Auto) 7 % (0-9) Eosinophils (%) (Auto) 0 % (0-3) Basophils (%) (Auto) 0 % (0-3) Neutrophils # (Auto) 7.6 x10^3uL (1.8-7.7) Lymphocytes # (Auto) 1.7 x10^3/uL (1.0-4.8) Monocytes # (Auto) 0.7 x10^3/uL (0.0-1.1) Eosinophils # (Auto) 0.0 x10^3/uL (0.0-0.7) Basophils # (Auto) 0.0 x10^3/uL (0.0-0.2) Sodium Level 142 mmol/L (136-145) Potassium Level 3.9 mmol/L (3.5-5.1) Chloride Level 102 mmol/L (98-107) Carbon Dioxide Level 36 mmol/L (21-32) Anion Gap 4 (6-14) Blood Urea Nitrogen 65 mg/dL (7-20) Creatinine 1.3 mg/dL (0.6-1.0) Estimated GFR (Cockcroft-Gault) 40.0 BUN/Creatinine Ratio 50 (6-20) Glucose Level 171 mg/dL (70-99) Calcium Level 8.1 mg/dL (8.5-10.1) Magnesium Level 1.9 mg/dL (1.8-2.4) Total Bilirubin 0.5 mg/dL (0.2-1.0) Aspartate Amino Transf (AST/SGOT) 19 U/L (15-37) Alanine Aminotransferase (ALT/SGPT) 22 U/L (14-59) Alkaline Phosphatase 147 U/L (46-116) Total Protein 5.6 g/dL (6.4-8.2) Albumin 1.9 g/dL (3.4-5.0) Albumin/Globulin Ratio 0.5 (1.0-1.7) Laboratory Tests Test 12/14/18 10:00 12/14/18 12:04 12/14/18 17:33 12/14/18 20:03 White Blood Count 11.7 x10^3/uL (4.0-11.0) Red Blood Count 2.87 x10^6/uL (3.50-5.40) Hemoglobin 8.3 g/dL (12.0-15.5) Hematocrit 25.7 % (36.0-47.0) Mean Corpuscular Volume 90 fL (79-100) Mean Corpuscular Hemoglobin 29 pg (25-35) Mean Corpuscular Hemoglobin Concent 32 g/dL (31-37) Red Cell Distribution Width 14.8 % (11.5-14.5) Platelet Count 291 x10^3/uL (140-400) Glucose (Fingerstick) 165 mg/dL (70-99) 224 mg/dL (70-99) 147 mg/dL (70-99) Test 12/14/18 23:54 12/15/18 05:00 12/15/18 07:53 Glucose (Fingerstick) 182 mg/dL (70-99) 158 mg/dL (70-99) 141 mg/dL (70-99) White Blood Count 10.1 x10^3/uL (4.0-11.0) Red Blood Count 2.69 x10^6/uL (3.50-5.40) Hemoglobin 7.9 g/dL (12.0-15.5) Hematocrit 24.5 % (36.0-47.0) Mean Corpuscular Volume 91 fL (79-100) Mean Corpuscular Hemoglobin 29 pg (25-35) Mean Corpuscular Hemoglobin Concent 32 g/dL (31-37) Red Cell Distribution Width 14.7 % (11.5-14.5) Platelet Count 257 x10^3/uL (140-400) Neutrophils (%) (Auto) 75 % (31-73) Lymphocytes (%) (Auto) 17 % (24-48) Monocytes (%) (Auto) 7 % (0-9) Eosinophils (%) (Auto) 0 % (0-3) Basophils (%) (Auto) 0 % (0-3) Neutrophils # (Auto) 7.6 x10^3uL (1.8-7.7) Lymphocytes # (Auto) 1.7 x10^3/uL (1.0-4.8) Monocytes # (Auto) 0.7 x10^3/uL (0.0-1.1) Eosinophils # (Auto) 0.0 x10^3/uL (0.0-0.7) Basophils # (Auto) 0.0 x10^3/uL (0.0-0.2) Sodium Level 142 mmol/L (136-145) Potassium Level 3.9 mmol/L (3.5-5.1) Chloride Level 102 mmol/L (98-107) Carbon Dioxide Level 36 mmol/L (21-32) Anion Gap 4 (6-14) Blood Urea Nitrogen 65 mg/dL (7-20) Creatinine 1.3 mg/dL (0.6-1.0) Estimated GFR (Cockcroft-Gault) 40.0 BUN/Creatinine Ratio 50 (6-20) Glucose Level 171 mg/dL (70-99) Calcium Level 8.1 mg/dL (8.5-10.1) Magnesium Level 1.9 mg/dL (1.8-2.4) Total Bilirubin 0.5 mg/dL (0.2-1.0) Aspartate Amino Transf (AST/SGOT) 19 U/L (15-37) Alanine Aminotransferase (ALT/SGPT) 22 U/L (14-59) Alkaline Phosphatase 147 U/L (46-116) Total Protein 5.6 g/dL (6.4-8.2) Albumin 1.9 g/dL (3.4-5.0) Albumin/Globulin Ratio 0.5 (1.0-1.7) Microbiology 12/12/18 - Final, Resulted 12/12/18 - Final, Resulted 12/12/18 - Final, Resulted 12/12/18 Gram Stain Evaluation - Final, Resulted 12/12/18 Sputum Culture, Resulted Pending 12/12/18 Anaerobic/Aerobic Culture, Resulted Pending 12/12/18 Anaerobic Culture Result 1 (MILLY), Resulted Pending 12/12/18 Aerobic Culture, Resulted Pending 12/12/18 Aerobic Culture Result 1 (MILLY), Resulted Pending 12/12/18 Gram Stain - Final, Resulted 12/12/18 Gram Stain Result 1 (MILLY) - Final, Resulted 12/12/18 Gram Stain Result 2 (MILLY) - Final, Resulted Medications Current Medications Ondansetron HCl (Zofran) 4 mg PRN Q6HRS PRN IV NAUSEA/VOMITING; Start 12/12/18 at 12:15; Stop 12/13/18 at 10:37; Status DC Prochlorperazine Edisylate (Compazine) 10 mg PRN Q6HRS PRN IV NAUSEA/VOMITING, 2ND CHOICE; Start 12/12/18 at 12:15 Prochlorperazine (Compazine) 25 mg PRN Q12HR PRN VT NAUSEA/VOMITING; Start at 12:15 Al Hydroxide/Mg Hydroxide (Mylanta Plus Xs) 30 ml PRN Q3HRS PRN PO HEARTBURN / GAS; Start 12/12/18 at 12:15 Calcium Carbonate/ Glycine (Tums) 500 mg PRN Q3HRS PRN PO UPSET STOMACH; Start 12/12/18 at 12:15 Zolpidem Tartrate (Ambien) 5 mg PRN QHS PRN PO INSOMNIA, MAY REPEAT IN 1HR; Start 12/12/18 at 12:15 Oxycodone HCl (Roxicodone) 5 mg PRN Q3HRS PRN PO BREAKTHROUGH PAIN; Start 12/12 at 12:15 Morphine Sulfate (Morphine Sulfate) 2 mg PRN Q2HR PRN IV MILD PAIN Last administered on 12/15/18at 09:01; Start 12/12/18 at 12:15 Acetaminophen (Tylenol) 650 mg PRN Q6HRS PRN PO Headaches, Temp > 101.5F; Start 12/12/18 at 12:15 Magnesium Hydroxide (Milk Of Magnesia) 2,400 mg PRN Q12HR PRN PO CONSTIPATION; Start 12/12/18 at 12:15 Bisacodyl (Dulcolax Supp) 10 mg PRN DAILY PRN VT CONSTIPATION; Start 12/12/18 at 12:15; Stop 12/12/18 at 12:26; Status DC Enoxaparin Sodium (Lovenox 40mg Syringe) 40 mg Q24H SQ ; Start 12/12/18 at 13:00 ; Stop 12/12/18 at 13:00; Status DC Sodium Chloride 1,000 ml @ 100 mls/hr Q10H IV Last administered on 12/13/18at 08:42; Start 12/12/18 at 12:15; Stop 12/13/18 at 11:01; Status DC Famotidine (Pepcid Vial) 20 mg QHS IVP Last administered on 12/14/18at 21:07; Start 12/12/18 at 21:00 Acetaminophen (Tylenol Supp) 650 mg PRN Q6HRS PRN RC FEVER; Start 12/12/18 at 12:30 Albuterol Sulfate (Ventolin Neb Soln) 2.5 mg PRN Q6HRS PRN INH SHORTNESS OF BREATH Last administered on 12/15/18at 04:17; Start 12/12/18 at 12:30 Bisacodyl (Dulcolax Supp) 10 mg PRN DAILY PRN RC CONSTIPATION; Start 12/12/18 at 12:30 Insulin Glargine (Lantus) 20 units QHS SQ ; Start 12/12/18 at 21:00; Stop at 21:00; Status DC Nystatin (Nystop) 1 ada BID TP Last administered on 12/15/18at 09:01; Start at 13:00 Norepinephrine Bitartrate 250 ml @ 1.875 mls/ hr CONT PRN IV SEE I/O RECORD Last administered on 12/12/18at 18:17; Start 12/12/18 at 12:45; Stop 12/12/18 at 12:45; Status DC Norepinephrine Bitartrate 250 ml @ 1.875 mls/ hr CONT PRN IV SEE I/O RECORD; Start 12/12/18 at 12:30; Status Cancel Levofloxacin/ Dextrose (Levaquin Per Pharmacy) 1 each PRN DAILY PRN MC SEE COMMENTS; Start 12/12/18 at 12:30 Metronidazole 100 ml @ 100 mls/hr Q8HRS IV Last administered on 12/13/18at 05: 53; Start 12/12/18 at 14:00; Stop 12/13/18 at 11:32; Status DC Insulin Glargine (Lantus) 10 units QHS SQ Last administered on 12/12/18at 22:11 ; Start 12/12/18 at 21:00; Stop 12/13/18 at 20:34; Status DC Levofloxacin/ Dextrose 100 ml @ 100 mls/hr Q24H IV Last administered on at 14:11; Start 12/12/18 at 13:00; Stop 12/12/18 at 15:54; Status DC Enoxaparin Sodium (Lovenox 40mg Syringe) 40 mg Q24H SQ Last administered on at 14:16; Start 12/12/18 at 13:00; Stop 12/15/18 at 07:40; Status DC Fentanyl Citrate (Fentanyl 2ml Vial) 25 mcg PRN Q5MIN PRN IV MILD PAIN; Start 12/12/18 at 14:00; Stop 12/13/18 at 13:59; Status DC Fentanyl Citrate (Fentanyl 2ml Vial) 50 mcg PRN Q5MIN PRN IV MODERATE TO SEVERE PAIN; Start 12/12/18 at 14:00; Stop 12/13/18 at 13:59; Status DC Morphine Sulfate (Morphine Sulfate) 1 mg PRN Q10MIN PRN IV PAIN; Start at 14:15; Stop 12/13/18 at 10:38; Status DC Ringer's Solution 1,000 ml @ 30 mls/hr Q24H IV ; Start 12/12/18 at 13:55; Stop 12/13/18 at 01:54; Status DC Lidocaine HCl (Xylocaine-Mpf 1% 2ml Vial) 2 ml 1X PRN PRN ID IV START; Start at 14:00; Stop 12/13/18 at 13:59; Status DC Hydromorphone HCl (Dilaudid) 0.5 mg PRN Q10MIN PRN IV SEV PAIN, Second choice; Start 12/12/18 at 14:00; Stop 12/13/18 at 13:59; Status DC Prochlorperazine Edisylate (Compazine) 5 mg PACU PRN PRN IV NAUSEA, MRX1; Start 12/12/18 at 14:00; Stop 12/13/18 at 13:59; Status DC Tigecycline 100 mg/Dextrose 100 ml @ 200 mls/hr 1X ONCE IV Last administered on 12/12/18at 17:40; Start 12/12/18 at 15:15; Stop 12/12/18 at 15:44; Status DC Tigecycline 50 mg/ Dextrose 50 ml @ 100 mls/hr Q12H IV Last administered on at 03:00; Start 12/13/18 at 03:00 Rocuronium [place] (Zemuron) 50 mg STK-MED ONCE .ROUTE ; Start 12/12/18 at 15:37 ; Stop 12/12/18 at 15:39; Status DC Fentanyl Citrate (Fentanyl 2ml Vial) 100 mcg STK-MED ONCE .ROUTE ; Start at 15:37; Stop 12/12/18 at 15:39; Status DC Ketamine HCl (Ketamine) 50 mg STK-MED ONCE .ROUTE ; Start 12/12/18 at 15:49; Stop 12/12/18 at 15:51; Status DC Propofol 20 ml @ As Directed STK-MED ONCE IV ; Start 12/12/18 at 15:49; Stop at 15:51; Status DC Lidocaine HCl (Lidocaine Pf 2% Vial) 5 ml STK-MED ONCE .ROUTE ; Start 12/12/18 at 15:49; Stop 12/12/18 at 15:51; Status DC Dexamethasone Sodium Phosphate (Decadron) 20 mg STK-MED ONCE .ROUTE ; Start at 15:49; Stop 12/12/18 at 15:51; Status DC Ondansetron HCl (Zofran) 4 mg STK-MED ONCE .ROUTE ; Start 12/12/18 at 15:49; Stop 12/12/18 at 15:51; Status DC Phenylephrine HCl (PHENYLEPHRINE in 0.9% NACL PF) 1 mg STK-MED ONCE IV ; Start 12/12/18 at 15:49; Stop 12/12/18 at 15:51; Status DC Desflurane (Suprane) 90 ml STK-MED ONCE IH ; Start 12/12/18 at 15:50; Stop 12/12 at 15:52; Status DC Levofloxacin/ Dextrose 100 ml @ 100 mls/hr Q48H IV Last administered on at 15:13; Start 12/13/18 at 16:00; Stop 12/14/18 at 13:26; Status DC Esmolol HCl (Brevibloc) 100 mg STK-MED ONCE IV ; Start 12/12/18 at 16:24; Stop 12/12/18 at 16:26; Status DC Rocuronium [place] (Zemuron) 100 mg STK-MED ONCE .ROUTE ; Start 12/12/18 at 16: 28; Stop 12/12/18 at 16:30; Status DC Phenylephrine HCl (Veto-Synephrine Inj) 10 mg STK-MED ONCE .ROUTE ; Start at 16:41; Stop 12/12/18 at 16:43; Status DC Cellulose (Surgicel Hemostat 4x8) 1 each STK-MED ONCE .ROUTE ; Start 12/12/18 at 16:47; Stop 12/12/18 at 16:49; Status DC Propofol 100 ml @ 0 mls/hr CONT PRN IV SEE PROTOCOL Last administered on at 05:52; Start 12/12/18 at 17:15; Stop 12/14/18 at 13:15; Status DC Sodium Chloride (Normal Saline Flush) 3 ml QSHIFT PRN IV AFTER MEDS AND BLOOD DRAWS; Start 12/12/18 at 17:30 Hydromorphone HCl (Dilaudid) 1 mg PRN Q3HRS PRN IV PAIN SEVERE; Start 12/12/18 at 17:30 Ondansetron HCl (Zofran) 4 mg PRN Q6HRS PRN IV NAUESA, 1ST CHOICE; Start at 17:30 Midazolam HCl (Versed) 2 mg PRN Q30MIN PRN IV SEE COMMENTS.; Start 12/12/18 at 17:30; Stop 12/14/18 at 13:20; Status DC Midazolam HCl (Versed) 5 mg STK-MED ONCE .ROUTE ; Start 12/12/18 at 17:23; Stop 12/12/18 at 17:25; Status DC Norepinephrine Bitartrate 250 ml @ 1.875 mls/ hr CONT PRN IV SEE I/O RECORD; Start 12/12/18 at 18:15 Sodium Chloride 1,000 ml @ 1,000 mls/hr 1X ONCE IV Last administered on at 18:45; Start 12/12/18 at 18:15; Stop 12/12/18 at 19:14; Status DC Insulin Human Lispro (HumaLOG) 8 units 1X ONCE SQ Last administered on at 22:15; Start 12/12/18 at 22:30; Stop 12/12/18 at 22:31; Status DC Insulin Human Regular (HumuLIN R VIAL) 10 unit 1X ONCE IV Last administered on 12/13/18at 08:40; Start 12/13/18 at 07:30; Stop 12/13/18 at 07:46; Status DC Insulin Human Lispro (HumaLOG) 6 units 1X ONCE SQ Last administered on at 08:41; Start 12/13/18 at 07:30; Stop 12/13/18 at 07:46; Status DC Insulin Human Lispro (HumaLOG) 0-7 UNITS Q4HRS SQ ; Start 12/13/18 at 08:00; Stop 12/13/18 at 20:34; Status DC Dextrose (Dextrose 50%-Water Syringe) 12.5 gm PRN Q15MIN PRN IV SEE COMMENTS; Start 12/13/18 at 08:00; Stop 12/14/18 at 12:57; Status DC Sodium Chloride 1,000 ml @ 1,000 mls/hr 1X ONCE IV Last administered on at 10:14; Start 12/13/18 at 10:00; Stop 12/13/18 at 11:00; Status DC Sodium Bicarbonate (Sodium Bicarb Adult 8.4% Syr) 50 meq 1X ONCE IV Last administered on 12/13/18at 10:14; Start 12/13/18 at 10:00; Stop 12/13/18 at 10:08 ; Status DC Insulin Human Regular 150 unit/ Sodium Chloride 151.5 ml @ 0 mls/hr CONT PRN PRN IV PER PROTOCOL; Start 12/13/18 at 11:00; Stop 12/13/18 at 20:34; Status DC Potassium Chloride/Water 100 ml @ 100 mls/hr PRN Q1HR PRN IV SEE COMMENTS; Start 12/13/18 at 11:00 Potassium Chloride/Water 100 ml @ 100 mls/hr PRN Q1HR PRN IV SEE COMMENTS; Start 12/13/18 at 11:00 Potassium Chloride/Water 100 ml @ 100 mls/hr PRN Q1HR PRN IV SEE COMMENTS; Start 12/13/18 at 11:00 Sodium Bicarbonate 50 meq/Sodium Chloride 1,050 ml @ 150 mls/hr Q7H IV Last administered on 12/15/18at 07:53; Start 12/13/18 at 11:00 Albumin Human 500 ml @ 125 mls/hr 1X ONCE IV Last administered on 12/13/18at 14:52; Start 12/13/18 at 11:30; Stop 12/13/18 at 15:29; Status DC Vitamin A/Vitamin D (Vitamin A & D Ointment) 1 ada PRN TID PRN TP SKIN PROTECTION; Start 12/13/18 at 14:00 Magnesium Sulfate/ Dextrose 100 ml @ 25 mls/hr 1X ONCE IV Last administered on 12/13/18at 19:24; Start 12/13/18 at 18:30; Stop 12/13/18 at 22:29; Status DC Potassium Chloride/Water 100 ml @ 100 mls/hr Q1HR IV Last administered on 12/13at 21:42; Start 12/13/18 at 19:00; Stop 12/13/18 at 22:59; Status DC Fentanyl Citrate (Fentanyl 2ml Vial) 25 mcg PRN Q2HR PRN IV MODERATE PAIN; Start 12/13/18 at 18:30 Dextrose/Sodium Chloride 1,000 ml @ 250 mls/hr Q4H IV Last administered on at 20:00; Start 12/13/18 at 20:00; Stop 12/13/18 at 20:34; Status DC Insulin Glargine (Lantus) 20 units QHS SQ Last administered on 12/14/18at 23:58 ; Start 12/13/18 at 21:00 Insulin Human Lispro (HumaLOG) 0-9 UNITS Q4HRS SQ Last administered on at 00:07; Start 12/14/18 at 00:00 Dextrose (Dextrose 50%-Water Syringe) 12.5 gm PRN Q15MIN PRN IV SEE COMMENTS; Start 12/13/18 at 20:30 Albumin Human 500 ml @ 125 mls/hr 1X ONCE IV Last administered on 12/14/18at 00:09; Start 12/13/18 at 23:15; Stop 12/14/18 at 03:14; Status DC Levofloxacin/ Dextrose 150 ml @ 100 mls/hr Q48H IV ; Start 12/15/18 at 16:00 Enoxaparin Sodium (Lovenox 60mg Syringe) 60 mg Q12HR SQ ; Start 12/15/18 at 09: 00 Active Scripts Active Reported Potassium Chloride 20 Meq Tablet.er 20 Meq PO TIDWMEALS Roxicodone (Oxycodone HCl) 5 Mg Tablet 5 Mg PO PRN Q4HRS PRN Nystatin 1 Each Powder.ea. 1 Each MC BID Levemir (Insulin Detemir) 100 Unit/1 Ml Vial 20 Unit SQ HS Novolog (Insulin Aspart) 100 Unit/1 Ml Cartridge 0 SQ QIDACHS Guaifenesin 600 Mg Tablet.er 600 Mg PO BID Bisacodyl 10 Mg Supp.rect 10 Mg RC PRN DAILY PRN Alprazolam 1 Mg Tablet 1 Tab PO TID PRN Acetaminophen Supp (Acetaminophen) 650 Mg Supp.rect 650 Mg RC PRN Q6HRS PRN Proair Hfa Inhaler (Albuterol Sulfate) 8.5 Gm Hfa.aer.ad 1 Puff INH PRN Q6HRS PRN Levothyroxine Sodium 75 Mcg Tablet 1 Tab PO DAILY Vitals/I & O Vital Sign - Last 24 Hours 12/14/18 12/14/18 12/14/18 12/14/18 09:34 10:00 11:00 11:40 Temp 97.7 97.7 Pulse 106 96 Resp 20 22 28 16 B/P (MAP) 139/61 (87) 111/54 (73) Pulse Ox 99 95 97 98 O2 Delivery Nasal Cannula Nasal Cannula Nasal Cannula Nasal Cannula O2 Flow Rate 3.0 2.0 2.0 2.0 12/14/18 12/14/18 12/14/18 12/14/18 12:00 12:00 13:17 14:00 Pulse 90 99 99 Resp 14 19 16 B/P (MAP) 100/49 (66) 104/53 (70) 110/55 (73) Pulse Ox 99 98 95 O2 Delivery Nasal Cannula Nasal Cannula Nasal Cannula Nasal Cannula O2 Flow Rate 2.0 2.0 2.0 2.0 12/14/18 12/14/18 12/14/18 12/14/18 14:15 15:09 15:22 16:00 Temp 97.7 97.7 Pulse 99 Resp 24 12 20 B/P (MAP) 112/67 (82) Pulse Ox 98 95 96 O2 Delivery Nasal Cannula Nasal Cannula Nasal Cannula Nasal Cannula O2 Flow Rate 2.0 2.0 2.0 2.0 12/14/18 12/14/18 12/14/18 12/14/18 16:00 17:05 18:22 19:00 Pulse 87 87 84 104 Resp 11 10 15 15 B/P (MAP) 133/53 (79) 132/51 (78) 128/45 (72) 103/45 (64) Pulse Ox 95 95 94 95 O2 Delivery Nasal Cannula Nasal Cannula Nasal Cannula Nasal Cannula O2 Flow Rate 2.0 2.0 2.0 2.0 12/14/18 12/14/18 12/14/18 12/14/18 20:00 20:00 20:16 21:00 Temp 99.4 99.4 Pulse 97 81 Resp 18 16 15 B/P (MAP) 122/47 (72) 98/43 (61) Pulse Ox 94 95 87 O2 Delivery Nasal Cannula Nasal Cannula Nasal Cannula Nasal Cannula O2 Flow Rate 2.0 2.0 2.0 2.0 12/14/18 12/14/18 12/14/18 12/14/18 22:00 23:00 23:51 23:59 Pulse 90 81 Resp 15 15 16 B/P (MAP) 118/47 (70) 129/59 (82) Pulse Ox 95 98 98 O2 Delivery Nasal Cannula Nasal Cannula Nasal Cannula Nasal Cannula O2 Flow Rate 2.0 2.0 2.0 2.0 12/14/18 12/15/18 12/15/18 12/15/18 23:59 01:00 01:40 02:00 Temp 99.2 99.2 Pulse 91 91 97 Resp 15 13 13 B/P (MAP) 135/53 (80) 134/59 (84) 101/42 (61) Pulse Ox 95 98 96 97 O2 Delivery Nasal Cannula Nasal Cannula Nasal Cannula Nasal Cannula O2 Flow Rate 2.0 2.0 2.0 2.0 12/15/18 12/15/18 12/15/18 12/15/18 03:00 03:12 04:00 04:00 Temp 99.2 99.2 Pulse 96 94 Resp 13 15 15 B/P (MAP) 112/47 (68) 108/52 (70) Pulse Ox 96 96 96 O2 Delivery Nasal Cannula Nasal Cannula Nasal Cannula Nasal Cannula O2 Flow Rate 2.0 2.0 2.0 2.0 12/15/18 12/15/18 12/15/18 12/15/18 05:00 06:00 06:46 07:00 Pulse 96 99 99 Resp 15 15 18 27 B/P (MAP) 108/45 (66) 119/53 (75) 137/57 (83) Pulse Ox 97 96 97 97 O2 Delivery Nasal Cannula Nasal Cannula Nasal Cannula Nasal Cannula O2 Flow Rate 2.0 2.0 2.0 2.0 12/15/18 12/15/18 12/15/18 12/15/18 07:16 07:45 08:00 09:00 Temp 98.0 98.0 Pulse 93 109 Resp 27 22 20 B/P (MAP) 155/64 (94) 117/47 (70) Pulse Ox 97 98 97 O2 Delivery Nasal Cannula Nasal Cannula Nasal Cannula Nasal Cannula O2 Flow Rate 2.0 2.0 2.0 2.0 12/15/18 09:01 Resp 22 Pulse Ox 98 O2 Delivery Nasal Cannula O2 Flow Rate 2.0 Intake and Output 12/14/18 12/14/18 12/15/18 15:01 23:01 07:01 Intake Total 1000 ml 1050 ml Output Total 1060 ml 1380 ml 895 ml Balance -60 ml -330 ml -895 ml LYNDA AGRAWAL MD Dec 15, 2018 09:19
--- NOTE | 2018-12-15 10:06 | PDOC ---
PURVI ESPARZA [employer]ING [employer] 12/15/18 1005: SURGICAL PROGRESS NOTE Subjective resting Vital Signs Vital Signs Date Time Temp Pulse Resp B/P (MAP) Pulse Ox O2 Delivery O2 Flow Rate FiO2 12/15/18 09:01 22 98 Nasal Cannula 2.0 12/15/18 09:00 109 117/47 (70) 12/15/18 08:00 98.0 98.0 I&O Intake and Output 12/15/18 07:01 Intake Total 2050 ml Output Total 3335 ml Balance -1285 ml IV Total 2050 ml Output Urine Total 3335 ml General: Cooperative, No acute distress Skin: Other (dressing in place, drain in place) Labs Laboratory Tests Test 12/13/18 11:10 12/13/18 11:24 12/13/18 11:50 12/13/18 13:50 O2 Saturation 95 % (92-99) Arterial Blood pH 7.40 (7.35-7.45) Arterial Blood pCO2 at Patient Temp 44 mmHg (35-46) Arterial Blood pO2 at Patient Temp 81 mmHg (65-108) Arterial Blood HCO3 27 mmol/L (21-28) Arterial Blood Base Excess 2 mmol/L (-3-3) FiO2 35 Glucose (Fingerstick) 470 mg/dL (70-99) 437 mg/dL (70-99) Lactic Acid Level 1.9 mmol/L (0.4-2.0) Phosphorus Level 4.9 mg/dL (2.6-4.7) Magnesium Level 1.6 mg/dL (1.8-2.4) Test 12/13/18 14:31 12/13/18 15:03 12/13/18 16:29 12/13/18 17:35 Urine Collection Type Unknown Urine Color Yellow Urine Clarity Clear Urine pH 5.0 Urine Specific [place] 1.020 Urine Protein Negative mg/dL (NEG-TRACE) Urine Glucose (UA) >=1000 mg/dL (NEG) Urine Ketones (Stick) Negative mg/dL (NEG) Urine Blood Small (NEG) Urine Nitrite Negative (NEG) Urine Bilirubin Negative (NEG) Urine Urobilinogen Dipstick 0.2 mg/dL (0.2 mg/dL) Urine Leukocyte Esterase Moderate (NEG) Urine RBC 0 /HPF (0-2) Urine WBC >40 /HPF (0-4) Urine Squamous Epithelial Cells Few /LPF Urine Bacteria 0 /HPF (0-FEW) Urine Mucus Mod /LPF Urine Yeast Present /HPF Glucose (Fingerstick) 417 mg/dL (70-99) 358 mg/dL (70-99) Sodium Level 143 mmol/L (136-145) Potassium Level 3.1 mmol/L (3.5-5.1) Chloride Level 103 mmol/L (98-107) Carbon Dioxide Level 30 mmol/L (21-32) Anion Gap 10 (6-14) Blood Urea Nitrogen 103 mg/dL (7-20) Creatinine 2.8 mg/dL (0.6-1.0) Estimated GFR (Cockcroft-Gault) 16.5 Glucose Level 315 mg/dL (70-99) Calcium Level 8.2 mg/dL (8.5-10.1) Phosphorus Level 3.1 mg/dL (2.6-4.7) Magnesium Level 1.5 mg/dL (1.8-2.4) Test 12/13/18 17:42 12/13/18 19:46 12/13/18 20:42 12/13/18 21:42 Glucose (Fingerstick) 276 mg/dL (70-99) 143 mg/dL (70-99) 161 mg/dL (70-99) 182 mg/dL (70-99) Test 12/13/18 22:17 12/14/18 00:11 12/14/18 04:04 12/14/18 05:30 Glucose (Fingerstick) 158 mg/dL (70-99) 181 mg/dL (70-99) 205 mg/dL (70-99) Sodium Level 142 mmol/L (136-145) Potassium Level 3.9 mmol/L (3.5-5.1) Chloride Level 102 mmol/L (98-107) Carbon Dioxide Level 31 mmol/L (21-32) Anion Gap 9 (6-14) Blood Urea Nitrogen 79 mg/dL (7-20) Creatinine 2.0 mg/dL (0.6-1.0) Estimated GFR (Cockcroft-Gault) 24.4 Glucose Level 233 mg/dL (70-99) Calcium Level 8.7 mg/dL (8.5-10.1) Test 12/14/18 07:37 12/14/18 10:00 12/14/18 12:04 12/14/18 17:33 Glucose (Fingerstick) 170 mg/dL (70-99) 165 mg/dL (70-99) 224 mg/dL (70-99) White Blood Count 11.7 x10^3/uL (4.0-11.0) Red Blood Count 2.87 x10^6/uL (3.50-5.40) Hemoglobin 8.3 g/dL (12.0-15.5) Hematocrit 25.7 % (36.0-47.0) Mean Corpuscular Volume 90 fL (79-100) Mean Corpuscular Hemoglobin 29 pg (25-35) Mean Corpuscular Hemoglobin Concent 32 g/dL (31-37) Red Cell Distribution Width 14.8 % (11.5-14.5) Platelet Count 291 x10^3/uL (140-400) Test 12/14/18 20:03 12/14/18 23:54 12/15/18 05:00 12/15/18 07:53 Glucose (Fingerstick) 147 mg/dL (70-99) 182 mg/dL (70-99) 158 mg/dL (70-99) 141 mg/dL (70-99) White Blood Count 10.1 x10^3/uL (4.0-11.0) Red Blood Count 2.69 x10^6/uL (3.50-5.40) Hemoglobin 7.9 g/dL (12.0-15.5) Hematocrit 24.5 % (36.0-47.0) Mean Corpuscular Volume 91 fL (79-100) Mean Corpuscular Hemoglobin 29 pg (25-35) Mean Corpuscular Hemoglobin Concent 32 g/dL (31-37) Red Cell Distribution Width 14.7 % (11.5-14.5) Platelet Count 257 x10^3/uL (140-400) Neutrophils (%) (Auto) 75 % (31-73) Lymphocytes (%) (Auto) 17 % (24-48) Monocytes (%) (Auto) 7 % (0-9) Eosinophils (%) (Auto) 0 % (0-3) Basophils (%) (Auto) 0 % (0-3) Neutrophils # (Auto) 7.6 x10^3uL (1.8-7.7) Lymphocytes # (Auto) 1.7 x10^3/uL (1.0-4.8) Monocytes # (Auto) 0.7 x10^3/uL (0.0-1.1) Eosinophils # (Auto) 0.0 x10^3/uL (0.0-0.7) Basophils # (Auto) 0.0 x10^3/uL (0.0-0.2) Sodium Level 142 mmol/L (136-145) Potassium Level 3.9 mmol/L (3.5-5.1) Chloride Level 102 mmol/L (98-107) Carbon Dioxide Level 36 mmol/L (21-32) Anion Gap 4 (6-14) Blood Urea Nitrogen 65 mg/dL (7-20) Creatinine 1.3 mg/dL (0.6-1.0) Estimated GFR (Cockcroft-Gault) 40.0 BUN/Creatinine Ratio 50 (6-20) Glucose Level 171 mg/dL (70-99) Calcium Level 8.1 mg/dL (8.5-10.1) Magnesium Level 1.9 mg/dL (1.8-2.4) Total Bilirubin 0.5 mg/dL (0.2-1.0) Aspartate Amino Transf (AST/SGOT) 19 U/L (15-37) Alanine Aminotransferase (ALT/SGPT) 22 U/L (14-59) Alkaline Phosphatase 147 U/L (46-116) Total Protein 5.6 g/dL (6.4-8.2) Albumin 1.9 g/dL (3.4-5.0) Albumin/Globulin Ratio 0.5 (1.0-1.7) Laboratory Tests Test 12/14/18 12:04 12/14/18 17:33 12/14/18 20:03 12/14/18 23:54 Glucose (Fingerstick) 165 mg/dL (70-99) 224 mg/dL (70-99) 147 mg/dL (70-99) 182 mg/dL (70-99) Test 12/15/18 05:00 12/15/18 07:53 White Blood Count 10.1 x10^3/uL (4.0-11.0) Red Blood Count 2.69 x10^6/uL (3.50-5.40) Hemoglobin 7.9 g/dL (12.0-15.5) Hematocrit 24.5 % (36.0-47.0) Mean Corpuscular Volume 91 fL (79-100) Mean Corpuscular Hemoglobin 29 pg (25-35) Mean Corpuscular Hemoglobin Concent 32 g/dL (31-37) Red Cell Distribution Width 14.7 % (11.5-14.5) Platelet Count 257 x10^3/uL (140-400) Neutrophils (%) (Auto) 75 % (31-73) Lymphocytes (%) (Auto) 17 % (24-48) Monocytes (%) (Auto) 7 % (0-9) Eosinophils (%) (Auto) 0 % (0-3) Basophils (%) (Auto) 0 % (0-3) Neutrophils # (Auto) 7.6 x10^3uL (1.8-7.7) Lymphocytes # (Auto) 1.7 x10^3/uL (1.0-4.8) Monocytes # (Auto) 0.7 x10^3/uL (0.0-1.1) Eosinophils # (Auto) 0.0 x10^3/uL (0.0-0.7) Basophils # (Auto) 0.0 x10^3/uL (0.0-0.2) Sodium Level 142 mmol/L (136-145) Potassium Level 3.9 mmol/L (3.5-5.1) Chloride Level 102 mmol/L (98-107) Carbon Dioxide Level 36 mmol/L (21-32) Anion Gap 4 (6-14) Blood Urea Nitrogen 65 mg/dL (7-20) Creatinine 1.3 mg/dL (0.6-1.0) Estimated GFR (Cockcroft-Gault) 40.0 BUN/Creatinine Ratio 50 (6-20) Glucose Level 171 mg/dL (70-99) Glucose (Fingerstick) 158 mg/dL (70-99) 141 mg/dL (70-99) Calcium Level 8.1 mg/dL (8.5-10.1) Magnesium Level 1.9 mg/dL (1.8-2.4) Total Bilirubin 0.5 mg/dL (0.2-1.0) Aspartate Amino Transf (AST/SGOT) 19 U/L (15-37) Alanine Aminotransferase (ALT/SGPT) 22 U/L (14-59) Alkaline Phosphatase 147 U/L (46-116) Total Protein 5.6 g/dL (6.4-8.2) Albumin 1.9 g/dL (3.4-5.0) Albumin/Globulin Ratio 0.5 (1.0-1.7) Assessment/Plan continue wound care RIGO GUALLPA MD 12/15/18 1517: SURGICAL PROGRESS NOTE Assessment/Plan pt seen and examined dressing dry and intact (changed earlier today) path PND continue wound care UPRVI ESPARZA APRN Dec 15, 2018 10:05 RIGO GUALLPA MD Dec 15, 2018 15:17
--- NOTE | 2018-12-15 10:50 | PDOC ---
PULMONARY PROGRESS NOTES Subjective extubated 12/13 afternoon doing well off levo Vitals Vital Signs Date Time Temp Pulse Resp B/P (MAP) Pulse Ox O2 Delivery O2 Flow Rate FiO2 12/15/18 10:00 97 22 144/67 (92) 99 Nasal Cannula 2.0 12/15/18 08:00 98.0 98.0 General: Alert, No acute distress Lungs: Clear Cardiovascular: S1, S2 Abdomen: Soft, Non-tender, Other (obese, wound covered with dressing) Extremities: Other (trace edema) Labs Laboratory Tests Test 12/13/18 11:10 12/13/18 11:24 12/13/18 11:50 12/13/18 13:50 O2 Saturation 95 % (92-99) Arterial Blood pH 7.40 (7.35-7.45) Arterial Blood pCO2 at Patient Temp 44 mmHg (35-46) Arterial Blood pO2 at Patient Temp 81 mmHg (65-108) Arterial Blood HCO3 27 mmol/L (21-28) Arterial Blood Base Excess 2 mmol/L (-3-3) FiO2 35 Glucose (Fingerstick) 470 mg/dL (70-99) 437 mg/dL (70-99) Lactic Acid Level 1.9 mmol/L (0.4-2.0) Phosphorus Level 4.9 mg/dL (2.6-4.7) Magnesium Level 1.6 mg/dL (1.8-2.4) Test 12/13/18 14:31 12/13/18 15:03 12/13/18 16:29 12/13/18 17:35 Urine Collection Type Unknown Urine Color Yellow Urine Clarity Clear Urine pH 5.0 Urine Specific [place] 1.020 Urine Protein Negative mg/dL (NEG-TRACE) Urine Glucose (UA) >=1000 mg/dL (NEG) Urine Ketones (Stick) Negative mg/dL (NEG) Urine Blood Small (NEG) Urine Nitrite Negative (NEG) Urine Bilirubin Negative (NEG) Urine Urobilinogen Dipstick 0.2 mg/dL (0.2 mg/dL) Urine Leukocyte Esterase Moderate (NEG) Urine RBC 0 /HPF (0-2) Urine WBC >40 /HPF (0-4) Urine Squamous Epithelial Cells Few /LPF Urine Bacteria 0 /HPF (0-FEW) Urine Mucus Mod /LPF Urine Yeast Present /HPF Glucose (Fingerstick) 417 mg/dL (70-99) 358 mg/dL (70-99) Sodium Level 143 mmol/L (136-145) Potassium Level 3.1 mmol/L (3.5-5.1) Chloride Level 103 mmol/L (98-107) Carbon Dioxide Level 30 mmol/L (21-32) Anion Gap 10 (6-14) Blood Urea Nitrogen 103 mg/dL (7-20) Creatinine 2.8 mg/dL (0.6-1.0) Estimated GFR (Cockcroft-Gault) 16.5 Glucose Level 315 mg/dL (70-99) Calcium Level 8.2 mg/dL (8.5-10.1) Phosphorus Level 3.1 mg/dL (2.6-4.7) Magnesium Level 1.5 mg/dL (1.8-2.4) Test 12/13/18 17:42 12/13/18 19:46 12/13/18 20:42 12/13/18 21:42 Glucose (Fingerstick) 276 mg/dL (70-99) 143 mg/dL (70-99) 161 mg/dL (70-99) 182 mg/dL (70-99) Test 12/13/18 22:17 12/14/18 00:11 12/14/18 04:04 12/14/18 05:30 Glucose (Fingerstick) 158 mg/dL (70-99) 181 mg/dL (70-99) 205 mg/dL (70-99) Sodium Level 142 mmol/L (136-145) Potassium Level 3.9 mmol/L (3.5-5.1) Chloride Level 102 mmol/L (98-107) Carbon Dioxide Level 31 mmol/L (21-32) Anion Gap 9 (6-14) Blood Urea Nitrogen 79 mg/dL (7-20) Creatinine 2.0 mg/dL (0.6-1.0) Estimated GFR (Cockcroft-Gault) 24.4 Glucose Level 233 mg/dL (70-99) Calcium Level 8.7 mg/dL (8.5-10.1) Test 12/14/18 07:37 12/14/18 10:00 12/14/18 12:04 12/14/18 17:33 Glucose (Fingerstick) 170 mg/dL (70-99) 165 mg/dL (70-99) 224 mg/dL (70-99) White Blood Count 11.7 x10^3/uL (4.0-11.0) Red Blood Count 2.87 x10^6/uL (3.50-5.40) Hemoglobin 8.3 g/dL (12.0-15.5) Hematocrit 25.7 % (36.0-47.0) Mean Corpuscular Volume 90 fL (79-100) Mean Corpuscular Hemoglobin 29 pg (25-35) Mean Corpuscular Hemoglobin Concent 32 g/dL (31-37) Red Cell Distribution Width 14.8 % (11.5-14.5) Platelet Count 291 x10^3/uL (140-400) Test 12/14/18 20:03 12/14/18 23:54 12/15/18 05:00 12/15/18 07:53 Glucose (Fingerstick) 147 mg/dL (70-99) 182 mg/dL (70-99) 158 mg/dL (70-99) 141 mg/dL (70-99) White Blood Count 10.1 x10^3/uL (4.0-11.0) Red Blood Count 2.69 x10^6/uL (3.50-5.40) Hemoglobin 7.9 g/dL (12.0-15.5) Hematocrit 24.5 % (36.0-47.0) Mean Corpuscular Volume 91 fL (79-100) Mean Corpuscular Hemoglobin 29 pg (25-35) Mean Corpuscular Hemoglobin Concent 32 g/dL (31-37) Red Cell Distribution Width 14.7 % (11.5-14.5) Platelet Count 257 x10^3/uL (140-400) Neutrophils (%) (Auto) 75 % (31-73) Lymphocytes (%) (Auto) 17 % (24-48) Monocytes (%) (Auto) 7 % (0-9) Eosinophils (%) (Auto) 0 % (0-3) Basophils (%) (Auto) 0 % (0-3) Neutrophils # (Auto) 7.6 x10^3uL (1.8-7.7) Lymphocytes # (Auto) 1.7 x10^3/uL (1.0-4.8) Monocytes # (Auto) 0.7 x10^3/uL (0.0-1.1) Eosinophils # (Auto) 0.0 x10^3/uL (0.0-0.7) Basophils # (Auto) 0.0 x10^3/uL (0.0-0.2) Sodium Level 142 mmol/L (136-145) Potassium Level 3.9 mmol/L (3.5-5.1) Chloride Level 102 mmol/L (98-107) Carbon Dioxide Level 36 mmol/L (21-32) Anion Gap 4 (6-14) Blood Urea Nitrogen 65 mg/dL (7-20) Creatinine 1.3 mg/dL (0.6-1.0) Estimated GFR (Cockcroft-Gault) 40.0 BUN/Creatinine Ratio 50 (6-20) Glucose Level 171 mg/dL (70-99) Calcium Level 8.1 mg/dL (8.5-10.1) Magnesium Level 1.9 mg/dL (1.8-2.4) Total Bilirubin 0.5 mg/dL (0.2-1.0) Aspartate Amino Transf (AST/SGOT) 19 U/L (15-37) Alanine Aminotransferase (ALT/SGPT) 22 U/L (14-59) Alkaline Phosphatase 147 U/L (46-116) Total Protein 5.6 g/dL (6.4-8.2) Albumin 1.9 g/dL (3.4-5.0) Albumin/Globulin Ratio 0.5 (1.0-1.7) Laboratory Tests Test 12/14/18 12:04 12/14/18 17:33 12/14/18 20:03 12/14/18 23:54 Glucose (Fingerstick) 165 mg/dL (70-99) 224 mg/dL (70-99) 147 mg/dL (70-99) 182 mg/dL (70-99) Test 12/15/18 05:00 12/15/18 07:53 White Blood Count 10.1 x10^3/uL (4.0-11.0) Red Blood Count 2.69 x10^6/uL (3.50-5.40) Hemoglobin 7.9 g/dL (12.0-15.5) Hematocrit 24.5 % (36.0-47.0) Mean Corpuscular Volume 91 fL (79-100) Mean Corpuscular Hemoglobin 29 pg (25-35) Mean Corpuscular Hemoglobin Concent 32 g/dL (31-37) Red Cell Distribution Width 14.7 % (11.5-14.5) Platelet Count 257 x10^3/uL (140-400) Neutrophils (%) (Auto) 75 % (31-73) Lymphocytes (%) (Auto) 17 % (24-48) Monocytes (%) (Auto) 7 % (0-9) Eosinophils (%) (Auto) 0 % (0-3) Basophils (%) (Auto) 0 % (0-3) Neutrophils # (Auto) 7.6 x10^3uL (1.8-7.7) Lymphocytes # (Auto) 1.7 x10^3/uL (1.0-4.8) Monocytes # (Auto) 0.7 x10^3/uL (0.0-1.1) Eosinophils # (Auto) 0.0 x10^3/uL (0.0-0.7) Basophils # (Auto) 0.0 x10^3/uL (0.0-0.2) Sodium Level 142 mmol/L (136-145) Potassium Level 3.9 mmol/L (3.5-5.1) Chloride Level 102 mmol/L (98-107) Carbon Dioxide Level 36 mmol/L (21-32) Anion Gap 4 (6-14) Blood Urea Nitrogen 65 mg/dL (7-20) Creatinine 1.3 mg/dL (0.6-1.0) Estimated GFR (Cockcroft-Gault) 40.0 BUN/Creatinine Ratio 50 (6-20) Glucose Level 171 mg/dL (70-99) Glucose (Fingerstick) 158 mg/dL (70-99) 141 mg/dL (70-99) Calcium Level 8.1 mg/dL (8.5-10.1) Magnesium Level 1.9 mg/dL (1.8-2.4) Total Bilirubin 0.5 mg/dL (0.2-1.0) Aspartate Amino Transf (AST/SGOT) 19 U/L (15-37) Alanine Aminotransferase (ALT/SGPT) 22 U/L (14-59) Alkaline Phosphatase 147 U/L (46-116) Total Protein 5.6 g/dL (6.4-8.2) Albumin 1.9 g/dL (3.4-5.0) Albumin/Globulin Ratio 0.5 (1.0-1.7) Medications Active Scripts Medications Dose Route/Sig Max Daily Dose Days Date Category Potassium Chloride 20 Meq Tablet.er 20 Meq PO TIDWMEALS 12/20/16 Reported Roxicodone (Oxycodone HCl) 5 Mg Tablet 5 Mg PO PRN Q4HRS PRN 12/20/16 Reported Nystatin 1 Each Powder.ea. 1 Each MC BID 12/20/16 Reported Levemir (Insulin Detemir) 100 Unit/1 Ml Vial 20 Unit SQ HS 12/20/16 Reported Novolog (Insulin Aspart) 100 Unit/1 Ml Cartridge 0 SQ QIDACHS 12/20/16 Reported Guaifenesin 600 Mg Tablet.er 600 Mg PO BID 12/20/16 Reported Bisacodyl 10 Mg Supp.rect 10 Mg RC PRN DAILY PRN 12/20/16 Reported Alprazolam 1 Mg Tablet 1 Tab PO TID PRN 12/20/16 Reported Acetaminophen Supp (Acetaminophen) 650 Mg Supp.rect 650 Mg RC PRN Q6HRS PRN 12/20/16 Reported Proair Hfa Inhaler (Albuterol Sulfate) 8.5 Gm Hfa.aer.ad 1 Puff INH PRN Q6HRS PRN 06/22/16 Reported Levothyroxine Sodium 75 Mcg Tablet 1 Tab PO DAILY 04/20/15 Reported Impression . 1. Acute respiratory failure secondary to combination of septic and hypovolemic shock. extubated 12/13 2. Shock secondary to combination of hypovolemia and septic shock. much improved. 3. 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 4. Acute renal failure with metabolic acidosis. 5. Severe protein-calorie malnutrition. 6. No significant history of tobacco use. 7. Disimpacted left humeral fracture. Plan . 1. Nasal canula 2. Broad-spectrum antibiotics. 3. prn fluid 4. Follow all cultures and wound cultures. 5. Monitor renal function. improving 6. off vasopressor. 7. Antibiotics per Infectious Disease. 8. Nutrition, per General Surgery. 9. Lovenox for DVT prophylaxis. 10. Monitor white cell count. 11. Orthopedic rec 13. Close monitoring of blood sugar, on insulin per protocol. 14. Discussed with RN, RT MITA ASHLEY MD Dec 15, 2018 10:50
--- NOTE | 2018-12-15 10:51 | PDOC ---
Renal-Progress Notes Subjective Notes Notes STABLE History of Present Illness Hx of present illness BETTER Vitals Vitals Vital Signs Date Time Temp Pulse Resp B/P (MAP) Pulse Ox O2 Delivery O2 Flow Rate FiO2 12/15/18 10:00 97 22 144/67 (92) 99 Nasal Cannula 2.0 12/15/18 08:00 98.0 98.0 Weight Weight [ ] I.O. Intake and Output Intake and Output 12/15/18 07:01 Intake Total 2050 ml Output Total 3335 ml Balance -1285 ml IV Total 2050 ml Output Urine Total 3335 ml Labs Labs Laboratory Tests Test 12/14/18 12:04 12/14/18 17:33 12/14/18 20:03 12/14/18 23:54 Glucose (Fingerstick) 165 mg/dL (70-99) 224 mg/dL (70-99) 147 mg/dL (70-99) 182 mg/dL (70-99) Test 12/15/18 05:00 12/15/18 07:53 White Blood Count 10.1 x10^3/uL (4.0-11.0) Red Blood Count 2.69 x10^6/uL (3.50-5.40) Hemoglobin 7.9 g/dL (12.0-15.5) Hematocrit 24.5 % (36.0-47.0) Mean Corpuscular Volume 91 fL (79-100) Mean Corpuscular Hemoglobin 29 pg (25-35) Mean Corpuscular Hemoglobin Concent 32 g/dL (31-37) Red Cell Distribution Width 14.7 % (11.5-14.5) Platelet Count 257 x10^3/uL (140-400) Neutrophils (%) (Auto) 75 % (31-73) Lymphocytes (%) (Auto) 17 % (24-48) Monocytes (%) (Auto) 7 % (0-9) Eosinophils (%) (Auto) 0 % (0-3) Basophils (%) (Auto) 0 % (0-3) Neutrophils # (Auto) 7.6 x10^3uL (1.8-7.7) Lymphocytes # (Auto) 1.7 x10^3/uL (1.0-4.8) Monocytes # (Auto) 0.7 x10^3/uL (0.0-1.1) Eosinophils # (Auto) 0.0 x10^3/uL (0.0-0.7) Basophils # (Auto) 0.0 x10^3/uL (0.0-0.2) Sodium Level 142 mmol/L (136-145) Potassium Level 3.9 mmol/L (3.5-5.1) Chloride Level 102 mmol/L (98-107) Carbon Dioxide Level 36 mmol/L (21-32) Anion Gap 4 (6-14) Blood Urea Nitrogen 65 mg/dL (7-20) Creatinine 1.3 mg/dL (0.6-1.0) Estimated GFR (Cockcroft-Gault) 40.0 BUN/Creatinine Ratio 50 (6-20) Glucose Level 171 mg/dL (70-99) Glucose (Fingerstick) 158 mg/dL (70-99) 141 mg/dL (70-99) Calcium Level 8.1 mg/dL (8.5-10.1) Magnesium Level 1.9 mg/dL (1.8-2.4) Total Bilirubin 0.5 mg/dL (0.2-1.0) Aspartate Amino Transf (AST/SGOT) 19 U/L (15-37) Alanine Aminotransferase (ALT/SGPT) 22 U/L (14-59) Alkaline Phosphatase 147 U/L (46-116) Total Protein 5.6 g/dL (6.4-8.2) Albumin 1.9 g/dL (3.4-5.0) Albumin/Globulin Ratio 0.5 (1.0-1.7) Micro Micro Microbiology 12/12/18 - Final, Resulted 12/12/18 - Final, Resulted 12/12/18 - Final, Resulted 12/12/18 Gram Stain Evaluation - Final, Resulted 12/12/18 Sputum Culture, Resulted Pending 12/12/18 Anaerobic/Aerobic Culture, Resulted Pending 12/12/18 Anaerobic Culture Result 1 (MILLY), Resulted Pending 12/12/18 Aerobic Culture, Resulted Pending 12/12/18 Aerobic Culture Result 1 (MILLY), Resulted Pending 12/12/18 Gram Stain - Final, Resulted 12/12/18 Gram Stain Result 1 (MILLY) - Final, Resulted 12/12/18 Gram Stain Result 2 (MILLY) - Final, Resulted Review of Systems Constitutional: yes: other (SEDATED) Physical Exam General Appearance: no apparent distress Skin: warm Respiratory: decreased breath sounds Heart: S1S2 Abdomen: soft, bowel sounds present Genitourinary: bladder flat Extremities: pulses present Musculoskeletal: Other Assessment Assessment IMP JACOB-BETTER WITH CR DOWN TO 1.3 HYPOTENSION LLQ ABSCESS AND EC FISTULA SEPSIS DM II ACIDOSIS-BETTER LEUCOCYTOSIS - BETTER PLAN ANTIBIOTICS IVF'S PRESSORS NEEDED DEMARCO CHACKO MD Dec 15, 2018 10:51
--- NOTE | 2018-12-15 13:00 | NUR ---
Pt continues to refuse to turn or be repositioned. Stressed the importance of mobility to protect skin from breakdown. Arms and legs elevated on pillows. lunch time insulin not given because pt refused lunch.
[2018-12-15] MEDS: IV 1/2 NORMAL SALINE 1,000 ML IV SCH (14:42)
--- NOTE | 2018-12-15 15:21 | NUR ---
Wound Care: Patient seen per wound care follow up for L lower abdominal surgical wound dressing change, per Dr. Lombardi request. LLQ dressing and packing removed. Wound cavity cleaned with saline. Exposed bowel covered with Xeroform gauze, then cavity filled with sterile saline moistened vaginal packing, total of 3 packages, then covered with ABDs and tape. Pt repositioned in bed and OT will work with patient. Will follow patient regarding wound care. 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
--- NOTE | 2018-12-15 16:10 | PATHOLOGY ---
[facility] Accession Number: [id number] . 01 Material submitted: . COLON BIOPSY . 01 Clinical history: . Abdominal wall abscess . 02 Diagnosis: Segment of fibroadipose tissue, designated, "colon biopsy": - Acute inflammation and granulation tissue consistent with abscess. . ([facility]:mm; 12/15/2018) [facility]/12/15/2018 . 02 Comment: There is no evidence of malignancy. . ([facility]; 12/15/2018) . 02 Electronically signed: . Conner Aguila MD, Pathologist NPI- [id number] . 01 Gross description: . The specimen is received in formalin, labeled "Joyce Guerrero, colon biopsy". Received is a segment of pale muniz to dusky yellow-muniz soft tissue measuring 1.4 x 0 x 0.5 cm in greatest dimensions. Sectioning reveals pale muniz to yellow-muniz cut surfaces throughout. The specimen is submitted entirely in cassette A1. ([facility]; 12/14/2018) QAC/QAC . 02 Pathologist provided ICD-10: L02.211 . 02 CPT . 573768 Specimen Comment: A courtesy copy of this report has been sent to Specimen Comment: [phone], . Specimen Comment: Report sent to / DR DUONG Specimen Comment: A duplicate report has been generated due to demographic updates. Performed at: 01 [facility] [address], [place] [id number] MD Eran Roa MD Phone: [phone] Performed at: 02 [facility] [address] [place], [place] [id number] MD Conner Aguila MD Phone: [phone]
--- NOTE | 2018-12-15 17:10 | NUR ---
Pt transferred to room 432 via bed with all belongings and medications. notified of room number.
--- NOTE | 2018-12-15 17:15 | NUR ---
Pt transferred from ICU. Arrived via bed. A&O X4, denies pain, meal tray ordered. Call light within reach. Will continue to monitor.
--- NOTE | 2018-12-15 19:45 | NUR ---
noted multiple open pressure areas in patient's coccyx , repositioned off pt's back will order barriatic bed.
[2018-12-15] MEDS: FAMOTIDINE 20 MG/2 ML VIAL IVP SCH (21:09)
[2018-12-15] MEDS: INSULIN GLARGINE 300 UNITS/3 ML INSULN.PEN. SQ SCH (21:17)
--- NOTE | 2018-12-15 22:19 | NUR ---
Dr Mims cotacted and informed of pt's hgb 7.9 and okayed to give lovenox as ordered.
[2018-12-16 03:00] VITALS: BP 169/74
[2018-12-16] MEDS: INSULIN LISPRO 300 UNITS/3 ML INSULN.PEN. SQ SCH ×6 (04:00→20:00)
[2018-12-16] MEDS: IV 1/2 NORMAL SALINE 1,000 ML IV SCH ×2 (04:26→16:53)
[2018-12-16] MEDS: TIGECYCLINE 50 MG in IV DEXTROSE 5% 50 ML IV SCH ×2 (04:27→14:58)
[2018-12-16 05:06] LABS: BASO % 0 % (0-3); EOS % 0 % (0-3); HEMATOCRIT 26.1 % (36.0-47.0); HEMOGLOBIN 8.4 g/dL (12.0-15.5); LYMPH # 1.3 x10^3/uL (1.0-4.8); LYMPH % 13 % (24-48); MEAN CORPUSCULAR HEMOGLOBIN 29 pg (25-35); MEAN CORPUSCULAR HGB CONC 32 g/dL (31-37); MEAN CORPUSCULAR VOLUME 91 fL (79-100); MONO # 0.6 x10^3/uL (0.0-1.1); MONO % 6 % (0-9); NEUT # 8.2 x10^3uL (1.8-7.7); NEUT % 81 % (31-73); PLATELET COUNT 277 x10^3/uL (140-400); RED BLOOD COUNT 2.88 x10^6/uL (3.50-5.40); RED CELL DISTRIBUTION WIDTH 14.6 % (11.5-14.5); WHITE BLOOD COUNT 10.2 x10^3/uL (4.0-11.0)
[2018-12-16 05:20] LABS: ALBUMIN 1.8 g/dL (3.4-5.0); ALBUMIN/GLOBULIN RATIO 0.5 (1.0-1.7); CALCIUM 7.8 mg/dL (8.5-10.1); CREATININE 1.2 mg/dL (0.6-1.0); GFR 43.9; POTASSIUM 3.8 mmol/L (3.5-5.1); TOTAL BILIRUBIN 0.6 mg/dL (0.2-1.0); TOTAL PROTEIN 5.5 g/dL (6.4-8.2)
[2018-12-16] MEDS: MORPHINE SULFATE 4 MG/ML VIAL. IV PRN ×2 (06:31→08:36)
[2018-12-16 07:00] VITALS: BP 156/51
[2018-12-16] MEDS: NYSTATIN TOPICAL POWDER 15GM BOTTLE. TP SCH ×2 (08:38→21:12)
--- NOTE | 2018-12-16 08:44 | PDOC ---
PULMONARY PROGRESS NOTES Subjective extubated 12/13 afternoon sob better, has occ cough, has abd pain Vitals Vital Signs Date Time Temp Pulse Resp B/P (MAP) Pulse Ox O2 Delivery O2 Flow Rate FiO2 12/16/18 06:31 20 100 Nasal Cannula 2.0 12/16/18 03:00 98.3 109 169/74 (105) 98.3 ROS: No Chest Pain General: Alert, No acute distress HEENT: Other (nc at perrl ) Lungs: Crackles Cardiovascular: S1, S2 Abdomen: Soft, Non-tender, Other (obese, wound covered with dressing) Extremities: Other (trace edema) Skin: Warm Labs Laboratory Tests Test 12/14/18 10:00 12/14/18 12:04 12/14/18 17:33 12/14/18 20:03 White Blood Count 11.7 x10^3/uL (4.0-11.0) Red Blood Count 2.87 x10^6/uL (3.50-5.40) Hemoglobin 8.3 g/dL (12.0-15.5) Hematocrit 25.7 % (36.0-47.0) Mean Corpuscular Volume 90 fL (79-100) Mean Corpuscular Hemoglobin 29 pg (25-35) Mean Corpuscular Hemoglobin Concent 32 g/dL (31-37) Red Cell Distribution Width 14.8 % (11.5-14.5) Platelet Count 291 x10^3/uL (140-400) Glucose (Fingerstick) 165 mg/dL (70-99) 224 mg/dL (70-99) 147 mg/dL (70-99) Test 12/14/18 23:54 12/15/18 05:00 12/15/18 07:53 12/15/18 12:14 Glucose (Fingerstick) 182 mg/dL (70-99) 158 mg/dL (70-99) 141 mg/dL (70-99) 185 mg/dL (70-99) White Blood Count 10.1 x10^3/uL (4.0-11.0) Red Blood Count 2.69 x10^6/uL (3.50-5.40) Hemoglobin 7.9 g/dL (12.0-15.5) Hematocrit 24.5 % (36.0-47.0) Mean Corpuscular Volume 91 fL (79-100) Mean Corpuscular Hemoglobin 29 pg (25-35) Mean Corpuscular Hemoglobin Concent 32 g/dL (31-37) Red Cell Distribution Width 14.7 % (11.5-14.5) Platelet Count 257 x10^3/uL (140-400) Neutrophils (%) (Auto) 75 % (31-73) Lymphocytes (%) (Auto) 17 % (24-48) Monocytes (%) (Auto) 7 % (0-9) Eosinophils (%) (Auto) 0 % (0-3) Basophils (%) (Auto) 0 % (0-3) Neutrophils # (Auto) 7.6 x10^3uL (1.8-7.7) Lymphocytes # (Auto) 1.7 x10^3/uL (1.0-4.8) Monocytes # (Auto) 0.7 x10^3/uL (0.0-1.1) Eosinophils # (Auto) 0.0 x10^3/uL (0.0-0.7) Basophils # (Auto) 0.0 x10^3/uL (0.0-0.2) Sodium Level 142 mmol/L (136-145) Potassium Level 3.9 mmol/L (3.5-5.1) Chloride Level 102 mmol/L (98-107) Carbon Dioxide Level 36 mmol/L (21-32) Anion Gap 4 (6-14) Blood Urea Nitrogen 65 mg/dL (7-20) Creatinine 1.3 mg/dL (0.6-1.0) Estimated GFR (Cockcroft-Gault) 40.0 BUN/Creatinine Ratio 50 (6-20) Glucose Level 171 mg/dL (70-99) Calcium Level 8.1 mg/dL (8.5-10.1) Magnesium Level 1.9 mg/dL (1.8-2.4) Total Bilirubin 0.5 mg/dL (0.2-1.0) Aspartate Amino Transf (AST/SGOT) 19 U/L (15-37) Alanine Aminotransferase (ALT/SGPT) 22 U/L (14-59) Alkaline Phosphatase 147 U/L (46-116) Total Protein 5.6 g/dL (6.4-8.2) Albumin 1.9 g/dL (3.4-5.0) Albumin/Globulin Ratio 0.5 (1.0-1.7) Test 12/15/18 16:12 12/15/18 20:39 12/15/18 23:50 12/16/18 04:10 Glucose (Fingerstick) 189 mg/dL (70-99) 225 mg/dL (70-99) 200 mg/dL (70-99) 197 mg/dL (70-99) Test 12/16/18 04:40 12/16/18 08:03 White Blood Count 10.2 x10^3/uL (4.0-11.0) Red Blood Count 2.88 x10^6/uL (3.50-5.40) Hemoglobin 8.4 g/dL (12.0-15.5) Hematocrit 26.1 % (36.0-47.0) Mean Corpuscular Volume 91 fL (79-100) Mean Corpuscular Hemoglobin 29 pg (25-35) Mean Corpuscular Hemoglobin Concent 32 g/dL (31-37) Red Cell Distribution Width 14.6 % (11.5-14.5) Platelet Count 277 x10^3/uL (140-400) Neutrophils (%) (Auto) 81 % (31-73) Lymphocytes (%) (Auto) 13 % (24-48) Monocytes (%) (Auto) 6 % (0-9) Eosinophils (%) (Auto) 0 % (0-3) Basophils (%) (Auto) 0 % (0-3) Neutrophils # (Auto) 8.2 x10^3uL (1.8-7.7) Lymphocytes # (Auto) 1.3 x10^3/uL (1.0-4.8) Monocytes # (Auto) 0.6 x10^3/uL (0.0-1.1) Eosinophils # (Auto) 0.0 x10^3/uL (0.0-0.7) Basophils # (Auto) 0.0 x10^3/uL (0.0-0.2) Sodium Level 141 mmol/L (136-145) Potassium Level 3.8 mmol/L (3.5-5.1) Chloride Level 101 mmol/L (98-107) Carbon Dioxide Level 36 mmol/L (21-32) Anion Gap 4 (6-14) Blood Urea Nitrogen 50 mg/dL (7-20) Creatinine 1.2 mg/dL (0.6-1.0) Estimated GFR (Cockcroft-Gault) 43.9 BUN/Creatinine Ratio 42 (6-20) Glucose Level 196 mg/dL (70-99) Calcium Level 7.8 mg/dL (8.5-10.1) Total Bilirubin 0.6 mg/dL (0.2-1.0) Aspartate Amino Transf (AST/SGOT) 17 U/L (15-37) Alanine Aminotransferase (ALT/SGPT) 20 U/L (14-59) Alkaline Phosphatase 157 U/L (46-116) Total Protein 5.5 g/dL (6.4-8.2) Albumin 1.8 g/dL (3.4-5.0) Albumin/Globulin Ratio 0.5 (1.0-1.7) Glucose (Fingerstick) 184 mg/dL (70-99) Laboratory Tests Test 12/15/18 12:14 12/15/18 16:12 12/15/18 20:39 12/15/18 23:50 Glucose (Fingerstick) 185 mg/dL (70-99) 189 mg/dL (70-99) 225 mg/dL (70-99) 200 mg/dL (70-99) Test 12/16/18 04:10 12/16/18 04:40 12/16/18 08:03 Glucose (Fingerstick) 197 mg/dL (70-99) 184 mg/dL (70-99) White Blood Count 10.2 x10^3/uL (4.0-11.0) Red Blood Count 2.88 x10^6/uL (3.50-5.40) Hemoglobin 8.4 g/dL (12.0-15.5) Hematocrit 26.1 % (36.0-47.0) Mean Corpuscular Volume 91 fL (79-100) Mean Corpuscular Hemoglobin 29 pg (25-35) Mean Corpuscular Hemoglobin Concent 32 g/dL (31-37) Red Cell Distribution Width 14.6 % (11.5-14.5) Platelet Count 277 x10^3/uL (140-400) Neutrophils (%) (Auto) 81 % (31-73) Lymphocytes (%) (Auto) 13 % (24-48) Monocytes (%) (Auto) 6 % (0-9) Eosinophils (%) (Auto) 0 % (0-3) Basophils (%) (Auto) 0 % (0-3) Neutrophils # (Auto) 8.2 x10^3uL (1.8-7.7) Lymphocytes # (Auto) 1.3 x10^3/uL (1.0-4.8) Monocytes # (Auto) 0.6 x10^3/uL (0.0-1.1) Eosinophils # (Auto) 0.0 x10^3/uL (0.0-0.7) Basophils # (Auto) 0.0 x10^3/uL (0.0-0.2) Sodium Level 141 mmol/L (136-145) Potassium Level 3.8 mmol/L (3.5-5.1) Chloride Level 101 mmol/L (98-107) Carbon Dioxide Level 36 mmol/L (21-32) Anion Gap 4 (6-14) Blood Urea Nitrogen 50 mg/dL (7-20) Creatinine 1.2 mg/dL (0.6-1.0) Estimated GFR (Cockcroft-Gault) 43.9 BUN/Creatinine Ratio 42 (6-20) Glucose Level 196 mg/dL (70-99) Calcium Level 7.8 mg/dL (8.5-10.1) Total Bilirubin 0.6 mg/dL (0.2-1.0) Aspartate Amino Transf (AST/SGOT) 17 U/L (15-37) Alanine Aminotransferase (ALT/SGPT) 20 U/L (14-59) Alkaline Phosphatase 157 U/L (46-116) Total Protein 5.5 g/dL (6.4-8.2) Albumin 1.8 g/dL (3.4-5.0) Albumin/Globulin Ratio 0.5 (1.0-1.7) Medications Active Scripts Medications Dose Route/Sig Max Daily Dose Days Date Category Potassium Chloride 20 Meq Tablet.er 20 Meq PO TIDWMEALS 12/20/16 Reported Roxicodone (Oxycodone HCl) 5 Mg Tablet 5 Mg PO PRN Q4HRS PRN 12/20/16 Reported Nystatin 1 Each Powder.ea. 1 Each MC BID 12/20/16 Reported Levemir (Insulin Detemir) 100 Unit/1 Ml Vial 20 Unit SQ HS 12/20/16 Reported Novolog (Insulin Aspart) 100 Unit/1 Ml Cartridge 0 SQ QIDACHS 12/20/16 Reported Guaifenesin 600 Mg Tablet.er 600 Mg PO BID 12/20/16 Reported Bisacodyl 10 Mg Supp.rect 10 Mg RC PRN DAILY PRN 12/20/16 Reported Alprazolam 1 Mg Tablet 1 Tab PO TID PRN 12/20/16 Reported Acetaminophen Supp (Acetaminophen) 650 Mg Supp.rect 650 Mg RC PRN Q6HRS PRN 12/20/16 Reported Proair Hfa Inhaler (Albuterol Sulfate) 8.5 Gm Hfa.aer.ad 1 Puff INH PRN Q6HRS PRN 06/22/16 Reported Levothyroxine Sodium 75 Mcg Tablet 1 Tab PO DAILY 04/20/15 Reported Impression . 1. Acute respiratory failure secondary to combination of septic and hypovolemic shock. resolved, extubated 12/13 2. Shock secondary to combination of hypovolemia and septic shock. much improved. 3. 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 4. Acute renal failure with metabolic acidosis. 5. Severe protein-calorie malnutrition. 6. No significant history of tobacco use. 7. Disimpacted left humeral fracture. Plan . 1. Nasal canula, 02 titration, 2. Broad-spectrum antibiotics. 3. prn fluid 4. Follow all cultures and wound cultures. 5. Monitor renal function. improving 6. start IS 7. Antibiotics per Infectious Disease. 8. Nutrition, per General Surgery. 9. Lovenox for DVT prophylaxis. 10. Monitor white cell count. 11. Orthopedic rec 13. Close monitoring of blood sugar, on insulin per protocol. 14. Discussed with RN, pt MARTHA LAWLER MD Dec 16, 2018 08:44
[2018-12-16] MEDS: HYDROmorphone 2 MG/ML VIAL IV PRN ×2 (10:59→21:07)
[2018-12-16 11:00] VITALS: BP 135/69
--- NOTE | 2018-12-16 12:22 | PDOC ---
PROGRESS NOTES Chief Complaint Chief Complaint LLQ abscess, colocutaneous fistula with perforation morbid obesity, BMI 60 diabetes 2 JACOB, NOS Septic shock on admit, better weakness and debilty acute on chronic pain, fibromyalgia History of Present Illness History of Present Illness SNF resident s/p left arm injyr, transferred from [facility] 2/2 septic shock from left-sided abdominal wound. s/p surg, was admitted to ICU and required levaphed for shock now on floor, 4s, better, tired and weak. PO intake not very much, labs better cont current pain managment, looks lethargic to me now ID on board - tigecycline + levaquin Vitals Vitals Vital Signs Date Time Temp Pulse Resp B/P (MAP) Pulse Ox O2 Delivery O2 Flow Rate FiO2 12/16/18 11:41 Nasal Cannula 12/16/18 11:01 3.0 12/16/18 11:00 98.5 90 18 135/69 (91) 95 98.5 Physical Exam Physical Exam GENERAL: Alert, awake,mild distress HEENT: Normocephalic, atraumatic. Anicteric. LUNGS: Decreased breath sounds at the base, otherwise clear. No wheezing. HEART: S1, S2 with no gallops or murmurs. ABDOMEN: Soft, obese. Bowel sounds present. Postop Dressing in place intact , dry EXTREMITIES: trace edema, no cyanosis. Chronic venous stasis changes present. NEUROLOGIC: Alert. 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 PSYCHIATRIC: Affect is appropriate. General: Cooperative, No acute distress Heart: Regular rate Lungs: Clear Abdomen: Other (obese, dressing intact) Extremities: Normal pulses Skin: Other (dressing in place, drain in place) Labs LABS Laboratory Tests Test 12/15/18 16:12 12/15/18 20:39 12/15/18 23:50 12/16/18 04:10 Glucose (Fingerstick) 189 mg/dL (70-99) 225 mg/dL (70-99) 200 mg/dL (70-99) 197 mg/dL (70-99) Test 12/16/18 04:40 12/16/18 08:03 12/16/18 11:46 White Blood Count 10.2 x10^3/uL (4.0-11.0) Red Blood Count 2.88 x10^6/uL (3.50-5.40) Hemoglobin 8.4 g/dL (12.0-15.5) Hematocrit 26.1 % (36.0-47.0) Mean Corpuscular Volume 91 fL (79-100) Mean Corpuscular Hemoglobin 29 pg (25-35) Mean Corpuscular Hemoglobin Concent 32 g/dL (31-37) Red Cell Distribution Width 14.6 % (11.5-14.5) Platelet Count 277 x10^3/uL (140-400) Neutrophils (%) (Auto) 81 % (31-73) Lymphocytes (%) (Auto) 13 % (24-48) Monocytes (%) (Auto) 6 % (0-9) Eosinophils (%) (Auto) 0 % (0-3) Basophils (%) (Auto) 0 % (0-3) Neutrophils # (Auto) 8.2 x10^3uL (1.8-7.7) Lymphocytes # (Auto) 1.3 x10^3/uL (1.0-4.8) Monocytes # (Auto) 0.6 x10^3/uL (0.0-1.1) Eosinophils # (Auto) 0.0 x10^3/uL (0.0-0.7) Basophils # (Auto) 0.0 x10^3/uL (0.0-0.2) Sodium Level 141 mmol/L (136-145) Potassium Level 3.8 mmol/L (3.5-5.1) Chloride Level 101 mmol/L (98-107) Carbon Dioxide Level 36 mmol/L (21-32) Anion Gap 4 (6-14) Blood Urea Nitrogen 50 mg/dL (7-20) Creatinine 1.2 mg/dL (0.6-1.0) Estimated GFR (Cockcroft-Gault) 43.9 BUN/Creatinine Ratio 42 (6-20) Glucose Level 196 mg/dL (70-99) Calcium Level 7.8 mg/dL (8.5-10.1) Total Bilirubin 0.6 mg/dL (0.2-1.0) Aspartate Amino Transf (AST/SGOT) 17 U/L (15-37) Alanine Aminotransferase (ALT/SGPT) 20 U/L (14-59) Alkaline Phosphatase 157 U/L (46-116) Total Protein 5.5 g/dL (6.4-8.2) Albumin 1.8 g/dL (3.4-5.0) Albumin/Globulin Ratio 0.5 (1.0-1.7) Glucose (Fingerstick) 184 mg/dL (70-99) 247 mg/dL (70-99) Review of Systems Review of Systems back pain, weakness, poor appetite Comment Review of Relevant I have reviewed the following items leif (where applicable) has been applied. Labs Laboratory Tests Test 12/14/18 17:33 12/14/18 20:03 12/14/18 23:54 12/15/18 05:00 Glucose (Fingerstick) 224 mg/dL (70-99) 147 mg/dL (70-99) 182 mg/dL (70-99) 158 mg/dL (70-99) White Blood Count 10.1 x10^3/uL (4.0-11.0) Red Blood Count 2.69 x10^6/uL (3.50-5.40) Hemoglobin 7.9 g/dL (12.0-15.5) Hematocrit 24.5 % (36.0-47.0) Mean Corpuscular Volume 91 fL (79-100) Mean Corpuscular Hemoglobin 29 pg (25-35) Mean Corpuscular Hemoglobin Concent 32 g/dL (31-37) Red Cell Distribution Width 14.7 % (11.5-14.5) Platelet Count 257 x10^3/uL (140-400) Neutrophils (%) (Auto) 75 % (31-73) Lymphocytes (%) (Auto) 17 % (24-48) Monocytes (%) (Auto) 7 % (0-9) Eosinophils (%) (Auto) 0 % (0-3) Basophils (%) (Auto) 0 % (0-3) Neutrophils # (Auto) 7.6 x10^3uL (1.8-7.7) Lymphocytes # (Auto) 1.7 x10^3/uL (1.0-4.8) Monocytes # (Auto) 0.7 x10^3/uL (0.0-1.1) Eosinophils # (Auto) 0.0 x10^3/uL (0.0-0.7) Basophils # (Auto) 0.0 x10^3/uL (0.0-0.2) Sodium Level 142 mmol/L (136-145) Potassium Level 3.9 mmol/L (3.5-5.1) Chloride Level 102 mmol/L (98-107) Carbon Dioxide Level 36 mmol/L (21-32) Anion Gap 4 (6-14) Blood Urea Nitrogen 65 mg/dL (7-20) Creatinine 1.3 mg/dL (0.6-1.0) Estimated GFR (Cockcroft-Gault) 40.0 BUN/Creatinine Ratio 50 (6-20) Glucose Level 171 mg/dL (70-99) Calcium Level 8.1 mg/dL (8.5-10.1) Magnesium Level 1.9 mg/dL (1.8-2.4) Total Bilirubin 0.5 mg/dL (0.2-1.0) Aspartate Amino Transf (AST/SGOT) 19 U/L (15-37) Alanine Aminotransferase (ALT/SGPT) 22 U/L (14-59) Alkaline Phosphatase 147 U/L (46-116) Total Protein 5.6 g/dL (6.4-8.2) Albumin 1.9 g/dL (3.4-5.0) Albumin/Globulin Ratio 0.5 (1.0-1.7) Test 12/15/18 07:53 12/15/18 12:14 12/15/18 16:12 12/15/18 20:39 Glucose (Fingerstick) 141 mg/dL (70-99) 185 mg/dL (70-99) 189 mg/dL (70-99) 225 mg/dL (70-99) Test 12/15/18 23:50 12/16/18 04:10 12/16/18 04:40 12/16/18 08:03 Glucose (Fingerstick) 200 mg/dL (70-99) 197 mg/dL (70-99) 184 mg/dL (70-99) White Blood Count 10.2 x10^3/uL (4.0-11.0) Red Blood Count 2.88 x10^6/uL (3.50-5.40) Hemoglobin 8.4 g/dL (12.0-15.5) Hematocrit 26.1 % (36.0-47.0) Mean Corpuscular Volume 91 fL (79-100) Mean Corpuscular Hemoglobin 29 pg (25-35) Mean Corpuscular Hemoglobin Concent 32 g/dL (31-37) Red Cell Distribution Width 14.6 % (11.5-14.5) Platelet Count 277 x10^3/uL (140-400) Neutrophils (%) (Auto) 81 % (31-73) Lymphocytes (%) (Auto) 13 % (24-48) Monocytes (%) (Auto) 6 % (0-9) Eosinophils (%) (Auto) 0 % (0-3) Basophils (%) (Auto) 0 % (0-3) Neutrophils # (Auto) 8.2 x10^3uL (1.8-7.7) Lymphocytes # (Auto) 1.3 x10^3/uL (1.0-4.8) Monocytes # (Auto) 0.6 x10^3/uL (0.0-1.1) Eosinophils # (Auto) 0.0 x10^3/uL (0.0-0.7) Basophils # (Auto) 0.0 x10^3/uL (0.0-0.2) Sodium Level 141 mmol/L (136-145) Potassium Level 3.8 mmol/L (3.5-5.1) Chloride Level 101 mmol/L (98-107) Carbon Dioxide Level 36 mmol/L (21-32) Anion Gap 4 (6-14) Blood Urea Nitrogen 50 mg/dL (7-20) Creatinine 1.2 mg/dL (0.6-1.0) Estimated GFR (Cockcroft-Gault) 43.9 BUN/Creatinine Ratio 42 (6-20) Glucose Level 196 mg/dL (70-99) Calcium Level 7.8 mg/dL (8.5-10.1) Total Bilirubin 0.6 mg/dL (0.2-1.0) Aspartate Amino Transf (AST/SGOT) 17 U/L (15-37) Alanine Aminotransferase (ALT/SGPT) 20 U/L (14-59) Alkaline Phosphatase 157 U/L (46-116) Total Protein 5.5 g/dL (6.4-8.2) Albumin 1.8 g/dL (3.4-5.0) Albumin/Globulin Ratio 0.5 (1.0-1.7) Test 12/16/18 11:46 Glucose (Fingerstick) 247 mg/dL (70-99) Laboratory Tests Test 12/15/18 16:12 12/15/18 20:39 12/15/18 23:50 12/16/18 04:10 Glucose (Fingerstick) 189 mg/dL (70-99) 225 mg/dL (70-99) 200 mg/dL (70-99) 197 mg/dL (70-99) Test 12/16/18 04:40 12/16/18 08:03 12/16/18 11:46 White Blood Count 10.2 x10^3/uL (4.0-11.0) Red Blood Count 2.88 x10^6/uL (3.50-5.40) Hemoglobin 8.4 g/dL (12.0-15.5) Hematocrit 26.1 % (36.0-47.0) Mean Corpuscular Volume 91 fL (79-100) Mean Corpuscular Hemoglobin 29 pg (25-35) Mean Corpuscular Hemoglobin Concent 32 g/dL (31-37) Red Cell Distribution Width 14.6 % (11.5-14.5) Platelet Count 277 x10^3/uL (140-400) Neutrophils (%) (Auto) 81 % (31-73) Lymphocytes (%) (Auto) 13 % (24-48) Monocytes (%) (Auto) 6 % (0-9) Eosinophils (%) (Auto) 0 % (0-3) Basophils (%) (Auto) 0 % (0-3) Neutrophils # (Auto) 8.2 x10^3uL (1.8-7.7) Lymphocytes # (Auto) 1.3 x10^3/uL (1.0-4.8) Monocytes # (Auto) 0.6 x10^3/uL (0.0-1.1) Eosinophils # (Auto) 0.0 x10^3/uL (0.0-0.7) Basophils # (Auto) 0.0 x10^3/uL (0.0-0.2) Sodium Level 141 mmol/L (136-145) Potassium Level 3.8 mmol/L (3.5-5.1) Chloride Level 101 mmol/L (98-107) Carbon Dioxide Level 36 mmol/L (21-32) Anion Gap 4 (6-14) Blood Urea Nitrogen 50 mg/dL (7-20) Creatinine 1.2 mg/dL (0.6-1.0) Estimated GFR (Cockcroft-Gault) 43.9 BUN/Creatinine Ratio 42 (6-20) Glucose Level 196 mg/dL (70-99) Calcium Level 7.8 mg/dL (8.5-10.1) Total Bilirubin 0.6 mg/dL (0.2-1.0) Aspartate Amino Transf (AST/SGOT) 17 U/L (15-37) Alanine Aminotransferase (ALT/SGPT) 20 U/L (14-59) Alkaline Phosphatase 157 U/L (46-116) Total Protein 5.5 g/dL (6.4-8.2) Albumin 1.8 g/dL (3.4-5.0) Albumin/Globulin Ratio 0.5 (1.0-1.7) Glucose (Fingerstick) 184 mg/dL (70-99) 247 mg/dL (70-99) Microbiology 12/12/18 - Final, Complete 12/12/18 - Final, Complete 12/12/18 - Final, Complete 12/12/18 Gram Stain Evaluation - Final, Complete 12/12/18 Sputum Culture - Final, Complete 12/12/18 Sputum Result 1 - Final, Complete 12/12/18 Sputum Result 2 - Final, Complete 12/12/18 Anaerobic/Aerobic Culture, Resulted Pending 12/12/18 Anaerobic Culture Result 1 (MILLY), Resulted Pending 12/12/18 Aerobic Culture - Preliminary, Resulted 12/12/18 Aerobic Culture Result 1 (MILLY) - Preliminary, Resulted 12/12/18 Aerobic Culture Result 2 (MILLY) - Preliminary, Resulted 12/12/18 Gram Stain - Final, Resulted 12/12/18 Gram Stain Result 1 (MILLY) - Final, Resulted 12/12/18 Gram Stain Result 2 (MILLY) - Final, Resulted Medications Current Medications Ondansetron HCl (Zofran) 4 mg PRN Q6HRS PRN IV NAUSEA/VOMITING; Start 12/12/18 at 12:15; Stop 12/13/18 at 10:37; Status DC Prochlorperazine Edisylate (Compazine) 10 mg PRN Q6HRS PRN IV NAUSEA/VOMITING, 2ND CHOICE; Start 12/12/18 at 12:15 Prochlorperazine (Compazine) 25 mg PRN Q12HR PRN [place] NAUSEA/VOMITING; Start at 12:15 Al Hydroxide/Mg Hydroxide (Mylanta Plus Xs) 30 ml PRN Q3HRS PRN PO HEARTBURN / GAS; Start 12/12/18 at 12:15 Calcium Carbonate/ Glycine (Tums) 500 mg PRN Q3HRS PRN PO UPSET STOMACH; Start 12/12/18 at 12:15 Zolpidem Tartrate (Ambien) 5 mg PRN QHS PRN PO INSOMNIA, MAY REPEAT IN 1HR; Start 12/12/18 at 12:15 Oxycodone HCl (Roxicodone) 5 mg PRN Q3HRS PRN PO BREAKTHROUGH PAIN; Start 12/12 at 12:15 Morphine Sulfate (Morphine Sulfate) 2 mg PRN Q2HR PRN IV MILD PAIN Last administered on 12/16/18at 08:36; Start 12/12/18 at 12:15 Acetaminophen (Tylenol) 650 mg PRN Q6HRS PRN PO Headaches, Temp > 101.5F; Start 12/12/18 at 12:15 Magnesium Hydroxide (Milk Of Magnesia) 2,400 mg PRN Q12HR PRN PO CONSTIPATION; Start 12/12/18 at 12:15 Bisacodyl (Dulcolax Supp) 10 mg PRN DAILY PRN [place] CONSTIPATION; Start 12/12/18 at 12:15; Stop 12/12/18 at 12:26; Status DC Enoxaparin Sodium (Lovenox 40mg Syringe) 40 mg Q24H SQ ; Start 12/12/18 at 13:00 ; Stop 12/12/18 at 13:00; Status DC Sodium Chloride 1,000 ml @ 100 mls/hr Q10H IV Last administered on 12/13/18at 08:42; Start 12/12/18 at 12:15; Stop 12/13/18 at 11:01; Status DC Famotidine (Pepcid Vial) 20 mg QHS IVP Last administered on 12/15/18at 21:09; Start 12/12/18 at 21:00 Acetaminophen (Tylenol Supp) 650 mg PRN Q6HRS PRN RC FEVER; Start 12/12/18 at 12:30 Albuterol Sulfate (Ventolin Neb Soln) 2.5 mg PRN Q6HRS PRN INH SHORTNESS OF BREATH Last administered on 12/15/18at 04:17; Start 12/12/18 at 12:30 Bisacodyl (Dulcolax Supp) 10 mg PRN DAILY PRN RC CONSTIPATION; Start 12/12/18 at 12:30 Insulin Glargine (Lantus) 20 units QHS SQ ; Start 12/12/18 at 21:00; Stop at 21:00; Status DC Nystatin (Nystop) 1 ada BID TP Last administered on 12/16/18at 08:38; Start at 13:00 Norepinephrine Bitartrate 250 ml @ 1.875 mls/ hr CONT PRN IV SEE I/O RECORD Last administered on 12/12/18at 18:17; Start 12/12/18 at 12:45; Stop 12/12/18 at 12:45; Status DC Norepinephrine Bitartrate 250 ml @ 1.875 mls/ hr CONT PRN IV SEE I/O RECORD; Start 12/12/18 at 12:30; Status Cancel Levofloxacin/ Dextrose (Levaquin Per Pharmacy) 1 each PRN DAILY PRN MC SEE COMMENTS; Start 12/12/18 at 12:30 Metronidazole 100 ml @ 100 mls/hr Q8HRS IV Last administered on 12/13/18at 05: 53; Start 12/12/18 at 14:00; Stop 12/13/18 at 11:32; Status DC Insulin Glargine (Lantus) 10 units QHS SQ Last administered on 12/12/18at 22:11 ; Start 12/12/18 at 21:00; Stop 12/13/18 at 20:34; Status DC Levofloxacin/ Dextrose 100 ml @ 100 mls/hr Q24H IV Last administered on at 14:11; Start 12/12/18 at 13:00; Stop 12/12/18 at 15:54; Status DC Enoxaparin Sodium (Lovenox 40mg Syringe) 40 mg Q24H SQ Last administered on at 14:16; Start 12/12/18 at 13:00; Stop 12/15/18 at 07:40; Status DC Fentanyl Citrate (Fentanyl 2ml Vial) 25 mcg PRN Q5MIN PRN IV MILD PAIN; Start 12/12/18 at 14:00; Stop 12/13/18 at 13:59; Status DC Fentanyl Citrate (Fentanyl 2ml Vial) 50 mcg PRN Q5MIN PRN IV MODERATE TO SEVERE PAIN; Start 12/12/18 at 14:00; Stop 12/13/18 at 13:59; Status DC Morphine Sulfate (Morphine Sulfate) 1 mg PRN Q10MIN PRN IV PAIN; Start at 14:15; Stop 12/13/18 at 10:38; Status DC Ringer's Solution 1,000 ml @ 30 mls/hr Q24H IV ; Start 12/12/18 at 13:55; Stop 12/13/18 at 01:54; Status DC Lidocaine HCl (Xylocaine-Mpf 1% 2ml Vial) 2 ml 1X PRN PRN ID IV START; Start at 14:00; Stop 12/13/18 at 13:59; Status DC Hydromorphone HCl (Dilaudid) 0.5 mg PRN Q10MIN PRN IV SEV PAIN, Second choice; Start 12/12/18 at 14:00; Stop 12/13/18 at 13:59; Status DC Prochlorperazine Edisylate (Compazine) 5 mg PACU PRN PRN IV NAUSEA, MRX1; Start 12/12/18 at 14:00; Stop 12/13/18 at 13:59; Status DC Tigecycline 100 mg/Dextrose 100 ml @ 200 mls/hr 1X ONCE IV Last administered on 12/12/18at 17:40; Start 12/12/18 at 15:15; Stop 12/12/18 at 15:44; Status DC Tigecycline 50 mg/ Dextrose 50 ml @ 100 mls/hr Q12H IV Last administered on at 04:27; Start 12/13/18 at 03:00 Rocuronium [place] (Zemuron) 50 mg STK-MED ONCE .ROUTE ; Start 12/12/18 at 15:37 ; Stop 12/12/18 at 15:39; Status DC Fentanyl Citrate (Fentanyl 2ml Vial) 100 mcg STK-MED ONCE .ROUTE ; Start at 15:37; Stop 12/12/18 at 15:39; Status DC Ketamine HCl (Ketamine) 50 mg STK-MED ONCE .ROUTE ; Start 12/12/18 at 15:49; Stop 12/12/18 at 15:51; Status DC Propofol 20 ml @ As Directed STK-MED ONCE IV ; Start 12/12/18 at 15:49; Stop at 15:51; Status DC Lidocaine HCl (Lidocaine Pf 2% Vial) 5 ml STK-MED ONCE .ROUTE ; Start 12/12/18 at 15:49; Stop 12/12/18 at 15:51; Status DC Dexamethasone Sodium Phosphate (Decadron) 20 mg STK-MED ONCE .ROUTE ; Start at 15:49; Stop 12/12/18 at 15:51; Status DC Ondansetron HCl (Zofran) 4 mg STK-MED ONCE .ROUTE ; Start 12/12/18 at 15:49; Stop 12/12/18 at 15:51; Status DC Phenylephrine HCl (PHENYLEPHRINE in 0.9% NACL PF) 1 mg STK-MED ONCE IV ; Start 12/12/18 at 15:49; Stop 12/12/18 at 15:51; Status DC Desflurane (Suprane) 90 ml STK-MED ONCE IH ; Start 12/12/18 at 15:50; Stop 12/12 at 15:52; Status DC Levofloxacin/ Dextrose 100 ml @ 100 mls/hr Q48H IV Last administered on at 15:13; Start 12/13/18 at 16:00; Stop 12/14/18 at 13:26; Status DC Esmolol HCl (Brevibloc) 100 mg STK-MED ONCE IV ; Start 12/12/18 at 16:24; Stop 12/12/18 at 16:26; Status DC Rocuronium [place] (Zemuron) 100 mg STK-MED ONCE .ROUTE ; Start 12/12/18 at 16: 28; Stop 12/12/18 at 16:30; Status DC Phenylephrine HCl (Veto-Synephrine Inj) 10 mg STK-MED ONCE .ROUTE ; Start at 16:41; Stop 12/12/18 at 16:43; Status DC Cellulose (Surgicel Hemostat 4x8) 1 each STK-MED ONCE .ROUTE ; Start 12/12/18 at 16:47; Stop 12/12/18 at 16:49; Status DC Propofol 100 ml @ 0 mls/hr CONT PRN IV SEE PROTOCOL Last administered on at 05:52; Start 12/12/18 at 17:15; Stop 12/14/18 at 13:15; Status DC Sodium Chloride (Normal Saline Flush) 3 ml QSHIFT PRN IV AFTER MEDS AND BLOOD DRAWS; Start 12/12/18 at 17:30 Hydromorphone HCl (Dilaudid) 1 mg PRN Q3HRS PRN IV PAIN SEVERE Last administered on 12/16/18at 10:59; Start 12/12/18 at 17:30 Ondansetron HCl (Zofran) 4 mg PRN Q6HRS PRN IV NAUESA, 1ST CHOICE; Start at 17:30 Midazolam HCl (Versed) 2 mg PRN Q30MIN PRN IV SEE COMMENTS.; Start 12/12/18 at 17:30; Stop 12/14/18 at 13:20; Status DC Midazolam HCl (Versed) 5 mg STK-MED ONCE .ROUTE ; Start 12/12/18 at 17:23; Stop 12/12/18 at 17:25; Status DC Norepinephrine Bitartrate 250 ml @ 1.875 mls/ hr CONT PRN IV SEE I/O RECORD; Start 12/12/18 at 18:15 Sodium Chloride 1,000 ml @ 1,000 mls/hr 1X ONCE IV Last administered on at 18:45; Start 12/12/18 at 18:15; Stop 12/12/18 at 19:14; Status DC Insulin Human Lispro (HumaLOG) 8 units 1X ONCE SQ Last administered on at 22:15; Start 12/12/18 at 22:30; Stop 12/12/18 at 22:31; Status DC Insulin Human Regular (HumuLIN R VIAL) 10 unit 1X ONCE IV Last administered on 12/13/18at 08:40; Start 12/13/18 at 07:30; Stop 12/13/18 at 07:46; Status DC Insulin Human Lispro (HumaLOG) 6 units 1X ONCE SQ Last administered on at 08:41; Start 12/13/18 at 07:30; Stop 12/13/18 at 07:46; Status DC Insulin Human Lispro (HumaLOG) 0-7 UNITS Q4HRS SQ ; Start 12/13/18 at 08:00; Stop 12/13/18 at 20:34; Status DC Dextrose (Dextrose 50%-Water Syringe) 12.5 gm PRN Q15MIN PRN IV SEE COMMENTS; Start 12/13/18 at 08:00; Stop 12/14/18 at 12:57; Status DC Sodium Chloride 1,000 ml @ 1,000 mls/hr 1X ONCE IV Last administered on at 10:14; Start 12/13/18 at 10:00; Stop 12/13/18 at 11:00; Status DC Sodium Bicarbonate (Sodium Bicarb Adult 8.4% Syr) 50 meq 1X ONCE IV Last administered on 12/13/18at 10:14; Start 12/13/18 at 10:00; Stop 12/13/18 at 10:08 ; Status DC Insulin Human Regular 150 unit/ Sodium Chloride 151.5 ml @ 0 mls/hr CONT PRN PRN IV PER PROTOCOL; Start 12/13/18 at 11:00; Stop 12/13/18 at 20:34; Status DC Potassium Chloride/Water 100 ml @ 100 mls/hr PRN Q1HR PRN IV SEE COMMENTS; Start 12/13/18 at 11:00 Potassium Chloride/Water 100 ml @ 100 mls/hr PRN Q1HR PRN IV SEE COMMENTS; Start 12/13/18 at 11:00 Potassium Chloride/Water 100 ml @ 100 mls/hr PRN Q1HR PRN IV SEE COMMENTS; Start 12/13/18 at 11:00 Sodium Bicarbonate 50 meq/Sodium Chloride 1,050 ml @ 150 mls/hr Q7H IV Last administered on 12/15/18at 07:53; Start 12/13/18 at 11:00; Stop 12/15/18 at 14:19 ; Status DC Albumin Human 500 ml @ 125 mls/hr 1X ONCE IV Last administered on 12/13/18at 14:52; Start 12/13/18 at 11:30; Stop 12/13/18 at 15:29; Status DC Vitamin A/Vitamin D (Vitamin A & D Ointment) 1 ada PRN TID PRN TP SKIN PROTECTION Last administered on 12/15/18 20:45; Start 12/13/18 at 14:00 Magnesium Sulfate/ Dextrose 100 ml @ 25 mls/hr 1X ONCE IV Last administered on 12/13/18at 19:24; Start 12/13/18 at 18:30; Stop 12/13/18 at 22:29; Status DC Potassium Chloride/Water 100 ml @ 100 mls/hr Q1HR IV Last administered on 12/13at 21:42; Start 12/13/18 at 19:00; Stop 12/13/18 at 22:59; Status DC Fentanyl Citrate (Fentanyl 2ml Vial) 25 mcg PRN Q2HR PRN IV MODERATE PAIN; Start 12/13/18 at 18:30 Dextrose/Sodium Chloride 1,000 ml @ 250 mls/hr Q4H IV Last administered on at 20:00; Start 12/13/18 at 20:00; Stop 12/13/18 at 20:34; Status DC Insulin Glargine (Lantus) 20 units QHS SQ Last administered on 12/15/18at 21:17 ; Start 12/13/18 at 21:00 Insulin Human Lispro (HumaLOG) 0-9 UNITS Q4HRS SQ Last administered on at 12:13; Start 12/14/18 at 00:00 Dextrose (Dextrose 50%-Water Syringe) 12.5 gm PRN Q15MIN PRN IV SEE COMMENTS; Start 12/13/18 at 20:30 Albumin Human 500 ml @ 125 mls/hr 1X ONCE IV Last administered on 12/14/18at 00:09; Start 12/13/18 at 23:15; Stop 12/14/18 at 03:14; Status DC Levofloxacin/ Dextrose 150 ml @ 100 mls/hr Q48H IV Last administered on 16:09; Start 12/15/18 at 16:00 Enoxaparin Sodium (Lovenox 60mg Syringe) 60 mg Q12HR SQ Last administered on at 08:37; Start 12/15/18 at 09:00 Sodium Chloride 1,000 ml @ 75 mls/hr [id number] IV Last administered on at 04:26; Start 12/15/18 at 15:00 Active Scripts Active Reported Potassium Chloride 20 Meq Tablet.er 20 Meq PO TIDWMEALS Roxicodone (Oxycodone HCl) 5 Mg Tablet 5 Mg PO PRN Q4HRS PRN Nystatin 1 Each Powder.ea. 1 Each MC BID Levemir (Insulin Detemir) 100 Unit/1 Ml Vial 20 Unit SQ HS Novolog (Insulin Aspart) 100 Unit/1 Ml Cartridge 0 SQ QIDACHS Guaifenesin 600 Mg Tablet.er 600 Mg PO BID Bisacodyl 10 Mg Supp.rect 10 Mg RC PRN DAILY PRN Alprazolam 1 Mg Tablet 1 Tab PO TID PRN Acetaminophen Supp (Acetaminophen) 650 Mg Supp.rect 650 Mg RC PRN Q6HRS PRN Proair Hfa Inhaler (Albuterol Sulfate) 8.5 Gm Hfa.aer.ad 1 Puff INH PRN Q6HRS PRN Levothyroxine Sodium 75 Mcg Tablet 1 Tab PO DAILY Vitals/I & O Vital Sign - Last 24 Hours 12/15/18 12/15/18 12/15/18 12/15/18 13:00 13:56 14:00 14:26 Pulse 103 103 Resp 27 18 29 22 B/P (MAP) 113/85 (94) 135/49 (77) Pulse Ox 97 96 98 98 O2 Delivery Nasal Cannula Nasal Cannula Nasal Cannula O2 Flow Rate 2.0 2.0 2.0 2.0 12/15/18 12/15/18 12/15/18 12/15/18 15:00 16:00 16:00 17:15 Temp 98.3 98.5 98.3 98.5 Pulse 106 95 101 Resp 22 13 B/P (MAP) 137/78 (97) 138/56 (83) 154/45 (81) Pulse Ox 96 97 92 O2 Delivery Nasal Cannula Nasal Cannula Nasal Cannula Nasal Cannula O2 Flow Rate 2.0 2.0 2.0 2.0 12/15/18 12/15/18 12/15/18 12/16/18 19:00 20:00 23:00 03:00 Temp 98.3 98.2 98.3 98.3 98.2 98.3 Pulse 119 113 109 Resp 13 13 13 B/P (MAP) 113/47 (69) 119/75 (90) 169/74 (105) Pulse Ox 100 96 100 O2 Delivery Nasal Cannula Nasal Cannula Nasal Cannula Nasal Cannula O2 Flow Rate 2.0 2.0 2.0 2.0 12/16/18 12/16/18 12/16/18 12/16/18 06:31 07:00 07:45 08:36 Temp 97.2 97.2 Pulse 106 Resp 20 20 B/P (MAP) 156/51 (86) Pulse Ox 100 97 O2 Delivery Nasal Cannula Nasal Cannula Nasal Cannula Nasal Cannula O2 Flow Rate 2.0 2.0 2.0 12/16/18 12/16/18 12/16/18 12/16/18 10:00 10:59 11:00 11:01 Temp 98.5 98.5 Pulse 90 Resp 18 B/P (MAP) 135/69 (91) Pulse Ox 95 O2 Delivery Nasal Cannula Nasal Cannula Room Air Nasal Cannula O2 Flow Rate 3.0 12/16/18 11:41 O2 Delivery Nasal Cannula Intake and Output 12/15/18 12/15/18 12/16/18 15:01 23:01 07:01 Intake Total 60 ml 1793 ml Output Total 850 ml 625 ml 450 ml Balance -790 ml 1168 ml -450 ml KALLIE RAINES MD Dec 16, 2018 12:22
--- NOTE | 2018-12-16 13:54 | PDOC ---
Infectious Disease Note Subjective Subjective Feeling alright, "I think I'm going to make it." + cough Tolerating clear liquids Denies N/V/D/F/C/S/SOA ROS ROS per HPI Vital Sign Vital Signs Vital Signs Date Time Temp Pulse Resp B/P (MAP) Pulse Ox O2 Delivery O2 Flow Rate FiO2 12/16/18 11:41 Nasal Cannula 12/16/18 11:01 3.0 12/16/18 11:00 98.5 90 18 135/69 (91) 95 98.5 Physical Exam PHYSICAL EXAM GENERAL: Propped up in bed, alert, relaxed appearance HEENT: Oral cavity clear, dentures LUNGS: Decreased breath sounds at the base, otherwise clear. No wheezing. HEART: S1, S2 with no gallops or murmurs. ABDOMEN: Soft, obese. Bowel sounds present. Dressing in place intact, dry : [place] EXTREMITIES: Trace edema, no cyanosis. Chronic venous stasis changes present. NEUROLOGIC: Alert responds appropriately Port & LIJ clean Labs Lab Laboratory Tests Test 12/15/18 16:12 12/15/18 20:39 12/15/18 23:50 12/16/18 04:10 Glucose (Fingerstick) 189 mg/dL (70-99) 225 mg/dL (70-99) 200 mg/dL (70-99) 197 mg/dL (70-99) Test 12/16/18 04:40 12/16/18 08:03 12/16/18 11:46 White Blood Count 10.2 x10^3/uL (4.0-11.0) Red Blood Count 2.88 x10^6/uL (3.50-5.40) Hemoglobin 8.4 g/dL (12.0-15.5) Hematocrit 26.1 % (36.0-47.0) Mean Corpuscular Volume 91 fL (79-100) Mean Corpuscular Hemoglobin 29 pg (25-35) Mean Corpuscular Hemoglobin Concent 32 g/dL (31-37) Red Cell Distribution Width 14.6 % (11.5-14.5) Platelet Count 277 x10^3/uL (140-400) Neutrophils (%) (Auto) 81 % (31-73) Lymphocytes (%) (Auto) 13 % (24-48) Monocytes (%) (Auto) 6 % (0-9) Eosinophils (%) (Auto) 0 % (0-3) Basophils (%) (Auto) 0 % (0-3) Neutrophils # (Auto) 8.2 x10^3uL (1.8-7.7) Lymphocytes # (Auto) 1.3 x10^3/uL (1.0-4.8) Monocytes # (Auto) 0.6 x10^3/uL (0.0-1.1) Eosinophils # (Auto) 0.0 x10^3/uL (0.0-0.7) Basophils # (Auto) 0.0 x10^3/uL (0.0-0.2) Sodium Level 141 mmol/L (136-145) Potassium Level 3.8 mmol/L (3.5-5.1) Chloride Level 101 mmol/L (98-107) Carbon Dioxide Level 36 mmol/L (21-32) Anion Gap 4 (6-14) Blood Urea Nitrogen 50 mg/dL (7-20) Creatinine 1.2 mg/dL (0.6-1.0) Estimated GFR (Cockcroft-Gault) 43.9 BUN/Creatinine Ratio 42 (6-20) Glucose Level 196 mg/dL (70-99) Calcium Level 7.8 mg/dL (8.5-10.1) Total Bilirubin 0.6 mg/dL (0.2-1.0) Aspartate Amino Transf (AST/SGOT) 17 U/L (15-37) Alanine Aminotransferase (ALT/SGPT) 20 U/L (14-59) Alkaline Phosphatase 157 U/L (46-116) Total Protein 5.5 g/dL (6.4-8.2) Albumin 1.8 g/dL (3.4-5.0) Albumin/Globulin Ratio 0.5 (1.0-1.7) Glucose (Fingerstick) 184 mg/dL (70-99) 247 mg/dL (70-99) Micro Microbiology 12/12/18 - Final, Complete 12/12/18 - Final, Complete 12/12/18 - Final, Complete 12/12/18 Gram Stain Evaluation - Final, Complete 12/12/18 Sputum Culture - Final, Complete 12/12/18 Sputum Result 1 - Final, Complete 12/12/18 Sputum Result 2 - Final, Complete 12/12/18 Anaerobic/Aerobic Culture, Resulted Pending 12/12/18 Anaerobic Culture Result 1 (MILLY), Resulted Pending 12/12/18 Aerobic Culture - Final, Resulted 12/12/18 Aerobic Culture Result 1 (MILLY) - Final, Resulted 12/12/18 Aerobic Culture Result 2 (MILLY) - Final, Resulted 12/12/18 Antimicrobic Susceptibility - Final, Resulted 12/12/18 Gram Stain - Final, Resulted 12/12/18 Gram Stain Result 1 (MILLY) - Final, Resulted 12/12/18 Gram Stain Result 2 (MILLY) - Final, Resulted Objective Assessment Septic shock, .Source Abdominal wall abscess ,improved LLQ abdominal 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 Proteus (R cipro, tetra & I Levaquin) and Enterococcus-PCN sensitive Colon mass s/p biopsy, Path showed acute inflammation and granulation tissue consistent with abscess, 12/12. Acute resp failure postop ;sputum yeast + likely contamination History of multiple allergies Obesity. Diabetes. Right upper extremity peripheral neuropathy. Left upper extremity fracture. Ortho evaluated pt Hyponatremia. Protein-calorie malnutrition, present on admission. Abnormal liver function tests. Plan Plan of Care Tigecycline for now d/c Levaquin Monitor labs wound management per Gen surgery Attending Co-Sign Attending Co-Sign The patient was seen and interviewed as well as examined at the bedside. The chart was reviewed. The case was discussed. Agree with the plan of care. PATRICIA DUNHAM APRN Dec 16, 2018 13:54 CARMINA HERNANDEZ MD Dec 16, 2018 16:46
--- NOTE | 2018-12-16 14:44 | PDOC ---
Renal-Progress Notes Subjective Notes Notes NONE History of Present Illness Hx of present illness BETTER Vitals Vitals Vital Signs Date Time Temp Pulse Resp B/P (MAP) Pulse Ox O2 Delivery O2 Flow Rate FiO2 12/16/18 11:41 Nasal Cannula 12/16/18 11:01 3.0 12/16/18 11:00 98.5 90 18 135/69 (91) 95 98.5 Weight Weight [ ] I.O. Intake and Output Intake and Output 12/16/18 07:01 Intake Total 1853 ml Output Total 1925 ml Balance -72 ml Intake Oral 180 ml IV Total 1673 ml Output Urine Total 1925 ml Labs Labs Laboratory Tests Test 12/15/18 16:12 12/15/18 20:39 12/15/18 23:50 12/16/18 04:10 Glucose (Fingerstick) 189 mg/dL (70-99) 225 mg/dL (70-99) 200 mg/dL (70-99) 197 mg/dL (70-99) Test 12/16/18 04:40 12/16/18 08:03 12/16/18 11:46 White Blood Count 10.2 x10^3/uL (4.0-11.0) Red Blood Count 2.88 x10^6/uL (3.50-5.40) Hemoglobin 8.4 g/dL (12.0-15.5) Hematocrit 26.1 % (36.0-47.0) Mean Corpuscular Volume 91 fL (79-100) Mean Corpuscular Hemoglobin 29 pg (25-35) Mean Corpuscular Hemoglobin Concent 32 g/dL (31-37) Red Cell Distribution Width 14.6 % (11.5-14.5) Platelet Count 277 x10^3/uL (140-400) Neutrophils (%) (Auto) 81 % (31-73) Lymphocytes (%) (Auto) 13 % (24-48) Monocytes (%) (Auto) 6 % (0-9) Eosinophils (%) (Auto) 0 % (0-3) Basophils (%) (Auto) 0 % (0-3) Neutrophils # (Auto) 8.2 x10^3uL (1.8-7.7) Lymphocytes # (Auto) 1.3 x10^3/uL (1.0-4.8) Monocytes # (Auto) 0.6 x10^3/uL (0.0-1.1) Eosinophils # (Auto) 0.0 x10^3/uL (0.0-0.7) Basophils # (Auto) 0.0 x10^3/uL (0.0-0.2) Sodium Level 141 mmol/L (136-145) Potassium Level 3.8 mmol/L (3.5-5.1) Chloride Level 101 mmol/L (98-107) Carbon Dioxide Level 36 mmol/L (21-32) Anion Gap 4 (6-14) Blood Urea Nitrogen 50 mg/dL (7-20) Creatinine 1.2 mg/dL (0.6-1.0) Estimated GFR (Cockcroft-Gault) 43.9 BUN/Creatinine Ratio 42 (6-20) Glucose Level 196 mg/dL (70-99) Calcium Level 7.8 mg/dL (8.5-10.1) Total Bilirubin 0.6 mg/dL (0.2-1.0) Aspartate Amino Transf (AST/SGOT) 17 U/L (15-37) Alanine Aminotransferase (ALT/SGPT) 20 U/L (14-59) Alkaline Phosphatase 157 U/L (46-116) Total Protein 5.5 g/dL (6.4-8.2) Albumin 1.8 g/dL (3.4-5.0) Albumin/Globulin Ratio 0.5 (1.0-1.7) Glucose (Fingerstick) 184 mg/dL (70-99) 247 mg/dL (70-99) Micro Micro Microbiology 12/12/18 - Final, Complete 12/12/18 - Final, Complete 12/12/18 - Final, Complete 12/12/18 Gram Stain Evaluation - Final, Complete 12/12/18 Sputum Culture - Final, Complete 12/12/18 Sputum Result 1 - Final, Complete 12/12/18 Sputum Result 2 - Final, Complete 12/12/18 Anaerobic/Aerobic Culture, Resulted Pending 12/12/18 Anaerobic Culture Result 1 (MILLY), Resulted Pending 12/12/18 Aerobic Culture - Final, Resulted 12/12/18 Aerobic Culture Result 1 (MILLY) - Final, Resulted 12/12/18 Aerobic Culture Result 2 (MILLY) - Final, Resulted 12/12/18 Antimicrobic Susceptibility - Final, Resulted 12/12/18 Gram Stain - Final, Resulted 12/12/18 Gram Stain Result 1 (MILLY) - Final, Resulted 12/12/18 Gram Stain Result 2 (MILLY) - Final, Resulted Review of Systems Constitutional: yes: other (SEDATED) Physical Exam General Appearance: no apparent distress Skin: warm Respiratory: decreased breath sounds Heart: S1S2 Abdomen: soft, bowel sounds present Genitourinary: bladder flat Extremities: pulses present Musculoskeletal: Other Assessment Assessment IMP JACOB-RESOLVED HYPOTENSION-RESOLVED LLQ ABSCESS AND EC FISTULA SEPSIS DM II ACIDOSIS-BETTER LEUCOCYTOSIS - RESOLVED PLAN ANTIBIOTICS IVF'S WILL SIGN OFF PLEASE CALL IF NEEDED DEMARCO CHACKO MD Dec 16, 2018 14:44
--- NOTE | 2018-12-16 14:51 | PDOC ---
Provider Note Provider Note SURG POD 4 no new c/o dressing changed has stool output renal function improved needs definitive procedure when medical optimized continue wound care RIGO GUALLPA MD Dec 16, 2018 14:51
[2018-12-16 15:00] VITALS: BP 151/61
--- NOTE | 2018-12-16 15:00 | NUR ---
Dressing change including packing changed by Dr. Lombardi at this time.
[2018-12-16 19:00] VITALS: BP 140/63
[2018-12-16] MEDS: INSULIN GLARGINE 300 UNITS/3 ML INSULN.PEN. SQ SCH (20:59)
[2018-12-16] MEDS: LACTOBACILLUS RHAMNOSUS GG 1 CAPSULE. PO SCH (21:09)
[2018-12-16] MEDS: FAMOTIDINE 20 MG TABLET. PO SCH (21:10)
--- NOTE | 2018-12-16 21:22 | NUR ---
Patient had a 16 beat run of VTach on tele monitor. Patient was asymptomatic and vital signs were stable. Dr. Anderson was paged at [phone] due to no cardiology on the case. Dr. Anderson called back at [phone], orders received and initiated at this time. RN will continue to monitor.
[2018-12-16 23:00] VITALS: BP 155/81
[2018-12-17] MEDS: HYDROmorphone 2 MG/ML VIAL IV PRN ×3 (01:46→17:03)
[2018-12-17] MEDS: TIGECYCLINE 50 MG in IV DEXTROSE 5% 50 ML IV SCH ×2 (02:28→15:30)
[2018-12-17 03:00] VITALS: BP_SYST 147
[2018-12-17 05:09] LABS: BASO % 0 % (0-3); EOS % 0 % (0-3); HEMOGLOBIN 9.1 g/dL (12.0-15.5); LYMPH # 1.6 x10^3/uL (1.0-4.8); LYMPH % 13 % (24-48); MEAN CORPUSCULAR HEMOGLOBIN 29 pg (25-35); MEAN CORPUSCULAR HGB CONC 32 g/dL (31-37); MEAN CORPUSCULAR VOLUME 91 fL (79-100); MONO # 0.8 x10^3/uL (0.0-1.1); MONO % 7 % (0-9); NEUT # 9.8 x10^3uL (1.8-7.7); NEUT % 80 % (31-73); PLATELET COUNT 319 x10^3/uL (140-400); RED BLOOD COUNT 3.21 x10^6/uL (3.50-5.40); RED CELL DISTRIBUTION WIDTH 14.8 % (11.5-14.5); WHITE BLOOD COUNT 12.3 x10^3/uL (4.0-11.0)
[2018-12-17 05:40] LABS: ALBUMIN 1.8 g/dL (3.4-5.0); ALBUMIN/GLOBULIN RATIO 0.5 (1.0-1.7); CALCIUM 8.4 mg/dL (8.5-10.1); CREATININE 1.1 mg/dL (0.6-1.0); GFR 48.6; POTASSIUM 4.1 mmol/L (3.5-5.1); TOTAL PROTEIN 5.7 g/dL (6.4-8.2)
[2018-12-17] MEDS: INSULIN LISPRO 300 UNITS/3 ML INSULN.PEN. SQ SCH ×6 (06:03→21:31)
[2018-12-17 07:00] VITALS: BP 164/74
--- NOTE | 2018-12-17 08:29 | PDOC ---
PULMONARY PROGRESS NOTES Subjective extubated 12/13 afternoon on 02, sob improved, has occ cough, has abd pain Vitals Vital Signs Date Time Temp Pulse Resp B/P (MAP) Pulse Ox O2 Delivery O2 Flow Rate FiO2 12/17/18 07:51 Nasal Cannula 3.0 12/17/18 07:00 98.3 115 16 164/74 (104) 99 98.3 ROS: No Chest Pain General: Alert, No acute distress HEENT: Other (nc at perrl ) Lungs: Crackles Cardiovascular: S1, S2 Abdomen: Soft, Non-tender, Other (obese, wound covered with dressing) Extremities: Other (trace edema) Skin: Warm Labs Laboratory Tests Test 12/15/18 12:14 12/15/18 16:12 12/15/18 20:39 12/15/18 23:50 Glucose (Fingerstick) 185 mg/dL (70-99) 189 mg/dL (70-99) 225 mg/dL (70-99) 200 mg/dL (70-99) Test 12/16/18 04:10 12/16/18 04:40 12/16/18 08:03 12/16/18 11:46 Glucose (Fingerstick) 197 mg/dL (70-99) 184 mg/dL (70-99) 247 mg/dL (70-99) White Blood Count 10.2 x10^3/uL (4.0-11.0) Red Blood Count 2.88 x10^6/uL (3.50-5.40) Hemoglobin 8.4 g/dL (12.0-15.5) Hematocrit 26.1 % (36.0-47.0) Mean Corpuscular Volume 91 fL (79-100) Mean Corpuscular Hemoglobin 29 pg (25-35) Mean Corpuscular Hemoglobin Concent 32 g/dL (31-37) Red Cell Distribution Width 14.6 % (11.5-14.5) Platelet Count 277 x10^3/uL (140-400) Neutrophils (%) (Auto) 81 % (31-73) Lymphocytes (%) (Auto) 13 % (24-48) Monocytes (%) (Auto) 6 % (0-9) Eosinophils (%) (Auto) 0 % (0-3) Basophils (%) (Auto) 0 % (0-3) Neutrophils # (Auto) 8.2 x10^3uL (1.8-7.7) Lymphocytes # (Auto) 1.3 x10^3/uL (1.0-4.8) Monocytes # (Auto) 0.6 x10^3/uL (0.0-1.1) Eosinophils # (Auto) 0.0 x10^3/uL (0.0-0.7) Basophils # (Auto) 0.0 x10^3/uL (0.0-0.2) Sodium Level 141 mmol/L (136-145) Potassium Level 3.8 mmol/L (3.5-5.1) Chloride Level 101 mmol/L (98-107) Carbon Dioxide Level 36 mmol/L (21-32) Anion Gap 4 (6-14) Blood Urea Nitrogen 50 mg/dL (7-20) Creatinine 1.2 mg/dL (0.6-1.0) Estimated GFR (Cockcroft-Gault) 43.9 BUN/Creatinine Ratio 42 (6-20) Glucose Level 196 mg/dL (70-99) Calcium Level 7.8 mg/dL (8.5-10.1) Total Bilirubin 0.6 mg/dL (0.2-1.0) Aspartate Amino Transf (AST/SGOT) 17 U/L (15-37) Alanine Aminotransferase (ALT/SGPT) 20 U/L (14-59) Alkaline Phosphatase 157 U/L (46-116) Total Protein 5.5 g/dL (6.4-8.2) Albumin 1.8 g/dL (3.4-5.0) Albumin/Globulin Ratio 0.5 (1.0-1.7) Test 12/16/18 16:15 12/16/18 20:37 12/17/18 00:07 12/17/18 04:30 Glucose (Fingerstick) 170 mg/dL (70-99) 108 mg/dL (70-99) 182 mg/dL (70-99) White Blood Count 12.3 x10^3/uL (4.0-11.0) Red Blood Count 3.21 x10^6/uL (3.50-5.40) Hemoglobin 9.1 g/dL (12.0-15.5) Hematocrit 29.0 % (36.0-47.0) Mean Corpuscular Volume 91 fL (79-100) Mean Corpuscular Hemoglobin 29 pg (25-35) Mean Corpuscular Hemoglobin Concent 32 g/dL (31-37) Red Cell Distribution Width 14.8 % (11.5-14.5) Platelet Count 319 x10^3/uL (140-400) Neutrophils (%) (Auto) 80 % (31-73) Lymphocytes (%) (Auto) 13 % (24-48) Monocytes (%) (Auto) 7 % (0-9) Eosinophils (%) (Auto) 0 % (0-3) Basophils (%) (Auto) 0 % (0-3) Neutrophils # (Auto) 9.8 x10^3uL (1.8-7.7) Lymphocytes # (Auto) 1.6 x10^3/uL (1.0-4.8) Monocytes # (Auto) 0.8 x10^3/uL (0.0-1.1) Eosinophils # (Auto) 0.0 x10^3/uL (0.0-0.7) Basophils # (Auto) 0.0 x10^3/uL (0.0-0.2) Sodium Level 143 mmol/L (136-145) Potassium Level 4.1 mmol/L (3.5-5.1) Chloride Level 104 mmol/L (98-107) Carbon Dioxide Level 32 mmol/L (21-32) Anion Gap 7 (6-14) Blood Urea Nitrogen 40 mg/dL (7-20) Creatinine 1.1 mg/dL (0.6-1.0) Estimated GFR (Cockcroft-Gault) 48.6 BUN/Creatinine Ratio 36 (6-20) Glucose Level 248 mg/dL (70-99) Calcium Level 8.4 mg/dL (8.5-10.1) Total Bilirubin 1.0 mg/dL (0.2-1.0) Aspartate Amino Transf (AST/SGOT) 23 U/L (15-37) Alanine Aminotransferase (ALT/SGPT) 22 U/L (14-59) Alkaline Phosphatase 192 U/L (46-116) Total Protein 5.7 g/dL (6.4-8.2) Albumin 1.8 g/dL (3.4-5.0) Albumin/Globulin Ratio 0.5 (1.0-1.7) Thyroid Stimulating Hormone (TSH) 0.746 uIU/mL (0.358-3.74) Test 12/17/18 04:39 12/17/18 05:00 12/17/18 05:56 Glucose (Fingerstick) 202 mg/dL (70-99) 228 mg/dL (70-99) Magnesium Level 1.6 mg/dL (1.8-2.4) Laboratory Tests Test 12/16/18 11:46 12/16/18 16:15 12/16/18 20:37 12/17/18 00:07 Glucose (Fingerstick) 247 mg/dL (70-99) 170 mg/dL (70-99) 108 mg/dL (70-99) 182 mg/dL (70-99) Test 12/17/18 04:30 12/17/18 04:39 12/17/18 05:00 12/17/18 05:56 White Blood Count 12.3 x10^3/uL (4.0-11.0) Red Blood Count 3.21 x10^6/uL (3.50-5.40) Hemoglobin 9.1 g/dL (12.0-15.5) Hematocrit 29.0 % (36.0-47.0) Mean Corpuscular Volume 91 fL (79-100) Mean Corpuscular Hemoglobin 29 pg (25-35) Mean Corpuscular Hemoglobin Concent 32 g/dL (31-37) Red Cell Distribution Width 14.8 % (11.5-14.5) Platelet Count 319 x10^3/uL (140-400) Neutrophils (%) (Auto) 80 % (31-73) Lymphocytes (%) (Auto) 13 % (24-48) Monocytes (%) (Auto) 7 % (0-9) Eosinophils (%) (Auto) 0 % (0-3) Basophils (%) (Auto) 0 % (0-3) Neutrophils # (Auto) 9.8 x10^3uL (1.8-7.7) Lymphocytes # (Auto) 1.6 x10^3/uL (1.0-4.8) Monocytes # (Auto) 0.8 x10^3/uL (0.0-1.1) Eosinophils # (Auto) 0.0 x10^3/uL (0.0-0.7) Basophils # (Auto) 0.0 x10^3/uL (0.0-0.2) Sodium Level 143 mmol/L (136-145) Potassium Level 4.1 mmol/L (3.5-5.1) Chloride Level 104 mmol/L (98-107) Carbon Dioxide Level 32 mmol/L (21-32) Anion Gap 7 (6-14) Blood Urea Nitrogen 40 mg/dL (7-20) Creatinine 1.1 mg/dL (0.6-1.0) Estimated GFR (Cockcroft-Gault) 48.6 BUN/Creatinine Ratio 36 (6-20) Glucose Level 248 mg/dL (70-99) Calcium Level 8.4 mg/dL (8.5-10.1) Total Bilirubin 1.0 mg/dL (0.2-1.0) Aspartate Amino Transf (AST/SGOT) 23 U/L (15-37) Alanine Aminotransferase (ALT/SGPT) 22 U/L (14-59) Alkaline Phosphatase 192 U/L (46-116) Total Protein 5.7 g/dL (6.4-8.2) Albumin 1.8 g/dL (3.4-5.0) Albumin/Globulin Ratio 0.5 (1.0-1.7) Thyroid Stimulating Hormone (TSH) 0.746 uIU/mL (0.358-3.74) Glucose (Fingerstick) 202 mg/dL (70-99) 228 mg/dL (70-99) Magnesium Level 1.6 mg/dL (1.8-2.4) Medications Active Scripts Medications Dose Route/Sig Max Daily Dose Days Date Category Potassium Chloride 20 Meq Tablet.er 20 Meq PO TIDWMEALS 12/20/16 Reported Roxicodone (Oxycodone HCl) 5 Mg Tablet 5 Mg PO PRN Q4HRS PRN 12/20/16 Reported Nystatin 1 Each Powder.ea. 1 Each MC BID 12/20/16 Reported Levemir (Insulin Detemir) 100 Unit/1 Ml Vial 20 Unit SQ HS 12/20/16 Reported Novolog (Insulin Aspart) 100 Unit/1 Ml Cartridge 0 SQ QIDACHS 12/20/16 Reported Guaifenesin 600 Mg Tablet.er 600 Mg PO BID 12/20/16 Reported Bisacodyl 10 Mg Supp.rect 10 Mg RC PRN DAILY PRN 12/20/16 Reported Alprazolam 1 Mg Tablet 1 Tab PO TID PRN 12/20/16 Reported Acetaminophen Supp (Acetaminophen) 650 Mg Supp.rect 650 Mg RC PRN Q6HRS PRN 12/20/16 Reported Proair Hfa Inhaler (Albuterol Sulfate) 8.5 Gm Hfa.aer.ad 1 Puff INH PRN Q6HRS PRN 06/22/16 Reported Levothyroxine Sodium 75 Mcg Tablet 1 Tab PO DAILY 04/20/15 Reported Impression . 1. Acute respiratory failure secondary to combination of septic and hypovolemic shock. resolved, extubated 12/13 2. Shock secondary to combination of hypovolemia and septic shock. much improved. 3. 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 4. Acute renal failure with metabolic acidosis, improving. 5. Severe protein-calorie malnutrition. 6. No significant history of tobacco use. 7. Disimpacted left humeral fracture. Plan . 1. Nasal canula, 02 titration, 2. Broad-spectrum antibiotics per ID, Micafungin added. 3. monitor I and Os 4. Follow all cultures and wound cultures. 5. Monitor renal function. improving 6. IS 7. Antibiotics per Infectious Disease. 8. Nutrition, per General Surgery. 9. Lovenox for DVT prophylaxis. 10. Monitor white cell count. 11. Orthopedic rec 13. Close monitoring of blood sugar, on insulin per protocol. 14. Discussed with RN, pt MARTHA LAWLER MD Dec 17, 2018 08:29
[2018-12-17] MEDS: LACTOBACILLUS RHAMNOSUS GG 1 CAPSULE. PO SCH ×2 (09:11→21:40)
[2018-12-17] MEDS: IV 1/2 NORMAL SALINE 1,000 ML IV SCH ×2 (09:11→21:40)
[2018-12-17] MEDS: oxyCODONE IR 5 MG TABLET PO PRN ×2 (09:11→21:40)
[2018-12-17] MEDS: NYSTATIN TOPICAL POWDER 15GM BOTTLE. TP SCH ×2 (09:12→21:41)
--- NOTE | 2018-12-17 10:16 | PDOC ---
Infectious Disease Note Subjective Subjective Feeling ok + cough Tolerating clear liquids Denies N/V/D/F/C/S/SOA ROS ROS per HPI Vital Sign Vital Signs Vital Signs Date Time Temp Pulse Resp B/P (MAP) Pulse Ox O2 Delivery O2 Flow Rate FiO2 12/17/18 09:11 Nasal Cannula 3.0 12/17/18 07:00 98.3 115 16 164/74 (104) 99 98.3 Physical Exam PHYSICAL EXAM GENERAL: Propped up in bed, alert, relaxed appearance HEENT: Oral cavity clear, dentures LUNGS: Decreased breath sounds. nonlabored HEART: S1, S2 with no gallops or murmurs. ABDOMEN: Soft, obese. Bowel sounds present. LLQ wound packed, Carlos. Foul odor and stool present : [place] EXTREMITIES: Trace edema, no cyanosis. Chronic venous stasis changes present. LUE edema, shoulder brace in place NEUROLOGIC: Alert, responds appropriately Port & LIJ clean Labs Lab Laboratory Tests Test 12/16/18 11:46 12/16/18 16:15 12/16/18 20:37 12/17/18 00:07 Glucose (Fingerstick) 247 mg/dL (70-99) 170 mg/dL (70-99) 108 mg/dL (70-99) 182 mg/dL (70-99) Test 12/17/18 04:30 12/17/18 04:39 12/17/18 05:00 12/17/18 05:56 White Blood Count 12.3 x10^3/uL (4.0-11.0) Red Blood Count 3.21 x10^6/uL (3.50-5.40) Hemoglobin 9.1 g/dL (12.0-15.5) Hematocrit 29.0 % (36.0-47.0) Mean Corpuscular Volume 91 fL (79-100) Mean Corpuscular Hemoglobin 29 pg (25-35) Mean Corpuscular Hemoglobin Concent 32 g/dL (31-37) Red Cell Distribution Width 14.8 % (11.5-14.5) Platelet Count 319 x10^3/uL (140-400) Neutrophils (%) (Auto) 80 % (31-73) Lymphocytes (%) (Auto) 13 % (24-48) Monocytes (%) (Auto) 7 % (0-9) Eosinophils (%) (Auto) 0 % (0-3) Basophils (%) (Auto) 0 % (0-3) Neutrophils # (Auto) 9.8 x10^3uL (1.8-7.7) Lymphocytes # (Auto) 1.6 x10^3/uL (1.0-4.8) Monocytes # (Auto) 0.8 x10^3/uL (0.0-1.1) Eosinophils # (Auto) 0.0 x10^3/uL (0.0-0.7) Basophils # (Auto) 0.0 x10^3/uL (0.0-0.2) Sodium Level 143 mmol/L (136-145) Potassium Level 4.1 mmol/L (3.5-5.1) Chloride Level 104 mmol/L (98-107) Carbon Dioxide Level 32 mmol/L (21-32) Anion Gap 7 (6-14) Blood Urea Nitrogen 40 mg/dL (7-20) Creatinine 1.1 mg/dL (0.6-1.0) Estimated GFR (Cockcroft-Gault) 48.6 BUN/Creatinine Ratio 36 (6-20) Glucose Level 248 mg/dL (70-99) Calcium Level 8.4 mg/dL (8.5-10.1) Total Bilirubin 1.0 mg/dL (0.2-1.0) Aspartate Amino Transf (AST/SGOT) 23 U/L (15-37) Alanine Aminotransferase (ALT/SGPT) 22 U/L (14-59) Alkaline Phosphatase 192 U/L (46-116) Total Protein 5.7 g/dL (6.4-8.2) Albumin 1.8 g/dL (3.4-5.0) Albumin/Globulin Ratio 0.5 (1.0-1.7) Thyroid Stimulating Hormone (TSH) 0.746 uIU/mL (0.358-3.74) Glucose (Fingerstick) 202 mg/dL (70-99) 228 mg/dL (70-99) Magnesium Level 1.6 mg/dL (1.8-2.4) Micro Microbiology 12/12/18 - Final, Complete 12/12/18 - Final, Complete 12/12/18 - Final, Complete 12/12/18 Gram Stain Evaluation - Final, Complete 12/12/18 Sputum Culture - Final, Complete 12/12/18 Sputum Result 1 - Final, Complete 12/12/18 Sputum Result 2 - Final, Complete 12/12/18 Anaerobic/Aerobic Culture, Resulted Pending 12/12/18 Anaerobic Culture Result 1 (MILLY), Resulted Pending 12/12/18 Aerobic Culture - Final, Resulted 12/12/18 Aerobic Culture Result 1 (MILLY) - Final, Resulted 12/12/18 Aerobic Culture Result 2 (MILLY) - Final, Resulted 12/12/18 Antimicrobic Susceptibility - Final, Resulted 12/12/18 Gram Stain - Final, Resulted 12/12/18 Gram Stain Result 1 (MILLY) - Final, Resulted 12/12/18 Gram Stain Result 2 (MILLY) - Final, Resulted Objective Assessment Leukocytosis LLQ abdominal 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 Proteus (R cipro, tetra & I Levaquin) and Enterococcus-PCN sensitive. Wound now with foul odor and stool present. Colon mass s/p biopsy, Path showed acute inflammation and granulation tissue consistent with abscess, 12/12. Septic shock, .Source Abdominal wall abscess, improved Acute resp failure postop ;sputum yeast + likely contamination History of multiple allergies Obesity. Diabetes. Right upper extremity peripheral neuropathy. Left upper extremity fracture. Ortho evaluated pt. + swelling Hyponatremia. Protein-calorie malnutrition, present on admission. Abnormal liver function tests. Plan Plan of Care Tigecycline for now Add Micafungin d/c Levaquin Monitor labs wound management per Gen surgery venous US left UE -pending D/w RN Surgeon to be notify of above findings, await follow-up Attending Co-Sign Attending Co-Sign The patient was seen and interviewed as well as examined at the bedside. The chart was reviewed. The case was discussed. Agree with the plan of care. PATRICIA DUNHAM APRN Dec 17, 2018 10:16 CARMINA HERNANDEZ MD Dec 17, 2018 13:46
[2018-12-17 11:00] VITALS: BP 151/47
[2018-12-17] MEDS ORDERED: MAGNESIUM SULFATE 2GM 50 ML IV ONE (13:15)
--- NOTE | 2018-12-17 13:54 | PDOC ---
PROGRESS NOTES Chief Complaint Chief Complaint LLQ abscess, colocutaneous fistula with perforation morbid obesity, BMI 60 diabetes 2 JACOB, NOS Septic shock on admit, better weakness and debilty acute on chronic pain, fibromyalgia History of Present Illness History of Present Illness SNF resident s/p left arm injyr, transferred from [facility] 2/2 septic shock from left-sided abdominal wound. s/p surg, was admitted to ICU had shock, now improved, tired and weak. PO intake not very much, pain with buttock wounds, very painful, dislikes being changed or moved labs better cont current pain managment, looks lethargic to me now ID on board - tigecycline + levaquin Vitals Vitals Vital Signs Date Time Temp Pulse Resp B/P (MAP) Pulse Ox O2 Delivery O2 Flow Rate FiO2 12/17/18 13:17 Nasal Cannula 3.0 12/17/18 11:00 98.4 112 18 151/47 (81) 98 98.4 Physical Exam Physical Exam GENERAL: Propped up in bed, alert, relaxed appearance HEENT: Oral cavity clear, dentures LUNGS: Decreased breath sounds. nonlabored HEART: S1, S2 with no gallops or murmurs. ABDOMEN: Soft, obese. Bowel sounds present. LLQ wound packed, [place]. Foul odor and stool present : [place] EXTREMITIES: Trace edema, no cyanosis. Chronic venous stasis changes present. LUE edema, shoulder brace in place NEUROLOGIC: Alert, responds appropriately Port & LIJ clean General: Cooperative, No acute distress Heart: Regular rate Lungs: Crackles Abdomen: Normal bowel sounds, Other (obese, dressing intact) Extremities: No clubbing, Normal pulses Skin: Other (dressing in place, drain in place) Labs LABS Laboratory Tests Test 12/16/18 16:15 12/16/18 20:37 12/17/18 00:07 12/17/18 04:30 Glucose (Fingerstick) 170 mg/dL (70-99) 108 mg/dL (70-99) 182 mg/dL (70-99) White Blood Count 12.3 x10^3/uL (4.0-11.0) Red Blood Count 3.21 x10^6/uL (3.50-5.40) Hemoglobin 9.1 g/dL (12.0-15.5) Hematocrit 29.0 % (36.0-47.0) Mean Corpuscular Volume 91 fL (79-100) Mean Corpuscular Hemoglobin 29 pg (25-35) Mean Corpuscular Hemoglobin Concent 32 g/dL (31-37) Red Cell Distribution Width 14.8 % (11.5-14.5) Platelet Count 319 x10^3/uL (140-400) Neutrophils (%) (Auto) 80 % (31-73) Lymphocytes (%) (Auto) 13 % (24-48) Monocytes (%) (Auto) 7 % (0-9) Eosinophils (%) (Auto) 0 % (0-3) Basophils (%) (Auto) 0 % (0-3) Neutrophils # (Auto) 9.8 x10^3uL (1.8-7.7) Lymphocytes # (Auto) 1.6 x10^3/uL (1.0-4.8) Monocytes # (Auto) 0.8 x10^3/uL (0.0-1.1) Eosinophils # (Auto) 0.0 x10^3/uL (0.0-0.7) Basophils # (Auto) 0.0 x10^3/uL (0.0-0.2) Sodium Level 143 mmol/L (136-145) Potassium Level 4.1 mmol/L (3.5-5.1) Chloride Level 104 mmol/L (98-107) Carbon Dioxide Level 32 mmol/L (21-32) Anion Gap 7 (6-14) Blood Urea Nitrogen 40 mg/dL (7-20) Creatinine 1.1 mg/dL (0.6-1.0) Estimated GFR (Cockcroft-Gault) 48.6 BUN/Creatinine Ratio 36 (6-20) Glucose Level 248 mg/dL (70-99) Calcium Level 8.4 mg/dL (8.5-10.1) Total Bilirubin 1.0 mg/dL (0.2-1.0) Aspartate Amino Transf (AST/SGOT) 23 U/L (15-37) Alanine Aminotransferase (ALT/SGPT) 22 U/L (14-59) Alkaline Phosphatase 192 U/L (46-116) Total Protein 5.7 g/dL (6.4-8.2) Albumin 1.8 g/dL (3.4-5.0) Albumin/Globulin Ratio 0.5 (1.0-1.7) Thyroid Stimulating Hormone (TSH) 0.746 uIU/mL (0.358-3.74) Test 12/17/18 04:39 12/17/18 05:00 12/17/18 05:56 12/17/18 08:02 Glucose (Fingerstick) 202 mg/dL (70-99) 228 mg/dL (70-99) 238 mg/dL (70-99) Magnesium Level 1.6 mg/dL (1.8-2.4) Test 12/17/18 12:04 Glucose (Fingerstick) 230 mg/dL (70-99) Comment Review of Relevant I have reviewed the following items leif (where applicable) has been applied. Labs Laboratory Tests Test 12/15/18 16:12 12/15/18 20:39 12/15/18 23:50 12/16/18 04:10 Glucose (Fingerstick) 189 mg/dL (70-99) 225 mg/dL (70-99) 200 mg/dL (70-99) 197 mg/dL (70-99) Test 12/16/18 04:40 12/16/18 08:03 12/16/18 11:46 12/16/18 16:15 White Blood Count 10.2 x10^3/uL (4.0-11.0) Red Blood Count 2.88 x10^6/uL (3.50-5.40) Hemoglobin 8.4 g/dL (12.0-15.5) Hematocrit 26.1 % (36.0-47.0) Mean Corpuscular Volume 91 fL (79-100) Mean Corpuscular Hemoglobin 29 pg (25-35) Mean Corpuscular Hemoglobin Concent 32 g/dL (31-37) Red Cell Distribution Width 14.6 % (11.5-14.5) Platelet Count 277 x10^3/uL (140-400) Neutrophils (%) (Auto) 81 % (31-73) Lymphocytes (%) (Auto) 13 % (24-48) Monocytes (%) (Auto) 6 % (0-9) Eosinophils (%) (Auto) 0 % (0-3) Basophils (%) (Auto) 0 % (0-3) Neutrophils # (Auto) 8.2 x10^3uL (1.8-7.7) Lymphocytes # (Auto) 1.3 x10^3/uL (1.0-4.8) Monocytes # (Auto) 0.6 x10^3/uL (0.0-1.1) Eosinophils # (Auto) 0.0 x10^3/uL (0.0-0.7) Basophils # (Auto) 0.0 x10^3/uL (0.0-0.2) Sodium Level 141 mmol/L (136-145) Potassium Level 3.8 mmol/L (3.5-5.1) Chloride Level 101 mmol/L (98-107) Carbon Dioxide Level 36 mmol/L (21-32) Anion Gap 4 (6-14) Blood Urea Nitrogen 50 mg/dL (7-20) Creatinine 1.2 mg/dL (0.6-1.0) Estimated GFR (Cockcroft-Gault) 43.9 BUN/Creatinine Ratio 42 (6-20) Glucose Level 196 mg/dL (70-99) Calcium Level 7.8 mg/dL (8.5-10.1) Total Bilirubin 0.6 mg/dL (0.2-1.0) Aspartate Amino Transf (AST/SGOT) 17 U/L (15-37) Alanine Aminotransferase (ALT/SGPT) 20 U/L (14-59) Alkaline Phosphatase 157 U/L (46-116) Total Protein 5.5 g/dL (6.4-8.2) Albumin 1.8 g/dL (3.4-5.0) Albumin/Globulin Ratio 0.5 (1.0-1.7) Glucose (Fingerstick) 184 mg/dL (70-99) 247 mg/dL (70-99) 170 mg/dL (70-99) Test 12/16/18 20:37 12/17/18 00:07 12/17/18 04:30 12/17/18 04:39 Glucose (Fingerstick) 108 mg/dL (70-99) 182 mg/dL (70-99) 202 mg/dL (70-99) White Blood Count 12.3 x10^3/uL (4.0-11.0) Red Blood Count 3.21 x10^6/uL (3.50-5.40) Hemoglobin 9.1 g/dL (12.0-15.5) Hematocrit 29.0 % (36.0-47.0) Mean Corpuscular Volume 91 fL (79-100) Mean Corpuscular Hemoglobin 29 pg (25-35) Mean Corpuscular Hemoglobin Concent 32 g/dL (31-37) Red Cell Distribution Width 14.8 % (11.5-14.5) Platelet Count 319 x10^3/uL (140-400) Neutrophils (%) (Auto) 80 % (31-73) Lymphocytes (%) (Auto) 13 % (24-48) Monocytes (%) (Auto) 7 % (0-9) Eosinophils (%) (Auto) 0 % (0-3) Basophils (%) (Auto) 0 % (0-3) Neutrophils # (Auto) 9.8 x10^3uL (1.8-7.7) Lymphocytes # (Auto) 1.6 x10^3/uL (1.0-4.8) Monocytes # (Auto) 0.8 x10^3/uL (0.0-1.1) Eosinophils # (Auto) 0.0 x10^3/uL (0.0-0.7) Basophils # (Auto) 0.0 x10^3/uL (0.0-0.2) Sodium Level 143 mmol/L (136-145) Potassium Level 4.1 mmol/L (3.5-5.1) Chloride Level 104 mmol/L (98-107) Carbon Dioxide Level 32 mmol/L (21-32) Anion Gap 7 (6-14) Blood Urea Nitrogen 40 mg/dL (7-20) Creatinine 1.1 mg/dL (0.6-1.0) Estimated GFR (Cockcroft-Gault) 48.6 BUN/Creatinine Ratio 36 (6-20) Glucose Level 248 mg/dL (70-99) Calcium Level 8.4 mg/dL (8.5-10.1) Total Bilirubin 1.0 mg/dL (0.2-1.0) Aspartate Amino Transf (AST/SGOT) 23 U/L (15-37) Alanine Aminotransferase (ALT/SGPT) 22 U/L (14-59) Alkaline Phosphatase 192 U/L (46-116) Total Protein 5.7 g/dL (6.4-8.2) Albumin 1.8 g/dL (3.4-5.0) Albumin/Globulin Ratio 0.5 (1.0-1.7) Thyroid Stimulating Hormone (TSH) 0.746 uIU/mL (0.358-3.74) Test 12/17/18 05:00 12/17/18 05:56 12/17/18 08:02 12/17/18 12:04 Magnesium Level 1.6 mg/dL (1.8-2.4) Glucose (Fingerstick) 228 mg/dL (70-99) 238 mg/dL (70-99) 230 mg/dL (70-99) Laboratory Tests Test 12/16/18 16:15 12/16/18 20:37 12/17/18 00:07 12/17/18 04:30 Glucose (Fingerstick) 170 mg/dL (70-99) 108 mg/dL (70-99) 182 mg/dL (70-99) White Blood Count 12.3 x10^3/uL (4.0-11.0) Red Blood Count 3.21 x10^6/uL (3.50-5.40) Hemoglobin 9.1 g/dL (12.0-15.5) Hematocrit 29.0 % (36.0-47.0) Mean Corpuscular Volume 91 fL (79-100) Mean Corpuscular Hemoglobin 29 pg (25-35) Mean Corpuscular Hemoglobin Concent 32 g/dL (31-37) Red Cell Distribution Width 14.8 % (11.5-14.5) Platelet Count 319 x10^3/uL (140-400) Neutrophils (%) (Auto) 80 % (31-73) Lymphocytes (%) (Auto) 13 % (24-48) Monocytes (%) (Auto) 7 % (0-9) Eosinophils (%) (Auto) 0 % (0-3) Basophils (%) (Auto) 0 % (0-3) Neutrophils # (Auto) 9.8 x10^3uL (1.8-7.7) Lymphocytes # (Auto) 1.6 x10^3/uL (1.0-4.8) Monocytes # (Auto) 0.8 x10^3/uL (0.0-1.1) Eosinophils # (Auto) 0.0 x10^3/uL (0.0-0.7) Basophils # (Auto) 0.0 x10^3/uL (0.0-0.2) Sodium Level 143 mmol/L (136-145) Potassium Level 4.1 mmol/L (3.5-5.1) Chloride Level 104 mmol/L (98-107) Carbon Dioxide Level 32 mmol/L (21-32) Anion Gap 7 (6-14) Blood Urea Nitrogen 40 mg/dL (7-20) Creatinine 1.1 mg/dL (0.6-1.0) Estimated GFR (Cockcroft-Gault) 48.6 BUN/Creatinine Ratio 36 (6-20) Glucose Level 248 mg/dL (70-99) Calcium Level 8.4 mg/dL (8.5-10.1) Total Bilirubin 1.0 mg/dL (0.2-1.0) Aspartate Amino Transf (AST/SGOT) 23 U/L (15-37) Alanine Aminotransferase (ALT/SGPT) 22 U/L (14-59) Alkaline Phosphatase 192 U/L (46-116) Total Protein 5.7 g/dL (6.4-8.2) Albumin 1.8 g/dL (3.4-5.0) Albumin/Globulin Ratio 0.5 (1.0-1.7) Thyroid Stimulating Hormone (TSH) 0.746 uIU/mL (0.358-3.74) Test 12/17/18 04:39 12/17/18 05:00 12/17/18 05:56 12/17/18 08:02 Glucose (Fingerstick) 202 mg/dL (70-99) 228 mg/dL (70-99) 238 mg/dL (70-99) Magnesium Level 1.6 mg/dL (1.8-2.4) Test 12/17/18 12:04 Glucose (Fingerstick) 230 mg/dL (70-99) Microbiology 12/12/18 - Final, Complete 12/12/18 - Final, Complete 12/12/18 - Final, Complete 12/12/18 Gram Stain Evaluation - Final, Complete 12/12/18 Sputum Culture - Final, Complete 12/12/18 Sputum Result 1 - Final, Complete 12/12/18 Sputum Result 2 - Final, Complete 12/12/18 Anaerobic/Aerobic Culture, Resulted Pending 12/12/18 Anaerobic Culture Result 1 (MILLY), Resulted Pending 12/12/18 Aerobic Culture - Final, Resulted 12/12/18 Aerobic Culture Result 1 (MILLY) - Final, Resulted 12/12/18 Aerobic Culture Result 2 (MILLY) - Final, Resulted 12/12/18 Antimicrobic Susceptibility - Final, Resulted 12/12/18 Gram Stain - Final, Resulted 12/12/18 Gram Stain Result 1 (MILLY) - Final, Resulted 12/12/18 Gram Stain Result 2 (MILLY) - Final, Resulted Medications Current Medications Ondansetron HCl (Zofran) 4 mg PRN Q6HRS PRN IV NAUSEA/VOMITING; Start 12/12/18 at 12:15; Stop 12/13/18 at 10:37; Status DC Prochlorperazine Edisylate (Compazine) 10 mg PRN Q6HRS PRN IV NAUSEA/VOMITING, 2ND CHOICE; Start 12/12/18 at 12:15 Prochlorperazine (Compazine) 25 mg PRN Q12HR PRN TN NAUSEA/VOMITING; Start at 12:15 Al Hydroxide/Mg Hydroxide (Mylanta Plus Xs) 30 ml PRN Q3HRS PRN PO HEARTBURN / GAS; Start 12/12/18 at 12:15 Calcium Carbonate/ Glycine (Tums) 500 mg PRN Q3HRS PRN PO UPSET STOMACH; Start 12/12/18 at 12:15 Zolpidem Tartrate (Ambien) 5 mg PRN QHS PRN PO INSOMNIA, MAY REPEAT IN 1HR; Start 12/12/18 at 12:15 Oxycodone HCl (Roxicodone) 5 mg PRN Q3HRS PRN PO BREAKTHROUGH PAIN Last administered on 12/17/18at 09:11; Start 12/12/18 at 12:15 Morphine Sulfate (Morphine Sulfate) 2 mg PRN Q2HR PRN IV MILD PAIN Last administered on 12/16/18at 08:36; Start 12/12/18 at 12:15 Acetaminophen (Tylenol) 650 mg PRN Q6HRS PRN PO Headaches, Temp > 101.5F; Start 12/12/18 at 12:15 Magnesium Hydroxide (Milk Of Magnesia) 2,400 mg PRN Q12HR PRN PO CONSTIPATION; Start 12/12/18 at 12:15 Bisacodyl (Dulcolax Supp) 10 mg PRN DAILY PRN TN CONSTIPATION; Start 12/12/18 at 12:15; Stop 12/12/18 at 12:26; Status DC Enoxaparin Sodium (Lovenox 40mg Syringe) 40 mg Q24H SQ ; Start 12/12/18 at 13:00 ; Stop 12/12/18 at 13:00; Status DC Sodium Chloride 1,000 ml @ 100 mls/hr Q10H IV Last administered on 12/13/18at 08:42; Start 12/12/18 at 12:15; Stop 12/13/18 at 11:01; Status DC Famotidine (Pepcid Vial) 20 mg QHS IVP Last administered on 12/15/18at 21:09; Start 12/12/18 at 21:00; Stop 12/16/18 at 15:32; Status DC Acetaminophen (Tylenol Supp) 650 mg PRN Q6HRS PRN RC FEVER; Start 12/12/18 at 12:30 Albuterol Sulfate (Ventolin Neb Soln) 2.5 mg PRN Q6HRS PRN INH SHORTNESS OF BREATH Last administered on 12/15/18at 04:17; Start 12/12/18 at 12:30 Bisacodyl (Dulcolax Supp) 10 mg PRN DAILY PRN RC CONSTIPATION; Start 12/12/18 at 12:30 Insulin Glargine (Lantus) 20 units QHS SQ ; Start 12/12/18 at 21:00; Stop at 21:00; Status DC Nystatin (Nystop) 1 ada BID TP Last administered on 12/17/18at 09:12; Start at 13:00 Norepinephrine Bitartrate 250 ml @ 1.875 mls/ hr CONT PRN IV SEE I/O RECORD Last administered on 12/12/18at 18:17; Start 12/12/18 at 12:45; Stop 12/12/18 at 12:45; Status DC Norepinephrine Bitartrate 250 ml @ 1.875 mls/ hr CONT PRN IV SEE I/O RECORD; Start 12/12/18 at 12:30; Status Cancel Levofloxacin/ Dextrose (Levaquin Per Pharmacy) 1 each PRN DAILY PRN MC SEE COMMENTS; Start 12/12/18 at 12:30; Stop 12/16/18 at 13:54; Status DC Metronidazole 100 ml @ 100 mls/hr Q8HRS IV Last administered on 12/13/18at 05: 53; Start 12/12/18 at 14:00; Stop 12/13/18 at 11:32; Status DC Insulin Glargine (Lantus) 10 units QHS SQ Last administered on 12/12/18at 22:11 ; Start 12/12/18 at 21:00; Stop 12/13/18 at 20:34; Status DC Levofloxacin/ Dextrose 100 ml @ 100 mls/hr Q24H IV Last administered on at 14:11; Start 12/12/18 at 13:00; Stop 12/12/18 at 15:54; Status DC Enoxaparin Sodium (Lovenox 40mg Syringe) 40 mg Q24H SQ Last administered on at 14:16; Start 12/12/18 at 13:00; Stop 12/15/18 at 07:40; Status DC Fentanyl Citrate (Fentanyl 2ml Vial) 25 mcg PRN Q5MIN PRN IV MILD PAIN; Start 12/12/18 at 14:00; Stop 12/13/18 at 13:59; Status DC Fentanyl Citrate (Fentanyl 2ml Vial) 50 mcg PRN Q5MIN PRN IV MODERATE TO SEVERE PAIN; Start 12/12/18 at 14:00; Stop 12/13/18 at 13:59; Status DC Morphine Sulfate (Morphine Sulfate) 1 mg PRN Q10MIN PRN IV PAIN; Start at 14:15; Stop 12/13/18 at 10:38; Status DC Ringer's Solution 1,000 ml @ 30 mls/hr Q24H IV ; Start 12/12/18 at 13:55; Stop 12/13/18 at 01:54; Status DC Lidocaine HCl (Xylocaine-Mpf 1% 2ml Vial) 2 ml 1X PRN PRN ID IV START; Start at 14:00; Stop 12/13/18 at 13:59; Status DC Hydromorphone HCl (Dilaudid) 0.5 mg PRN Q10MIN PRN IV SEV PAIN, Second choice; Start 12/12/18 at 14:00; Stop 12/13/18 at 13:59; Status DC Prochlorperazine Edisylate (Compazine) 5 mg PACU PRN PRN IV NAUSEA, MRX1; Start 12/12/18 at 14:00; Stop 12/13/18 at 13:59; Status DC Tigecycline 100 mg/Dextrose 100 ml @ 200 mls/hr 1X ONCE IV Last administered on 12/12/18at 17:40; Start 12/12/18 at 15:15; Stop 12/12/18 at 15:44; Status DC Tigecycline 50 mg/ Dextrose 50 ml @ 100 mls/hr Q12H IV Last administered on at 02:28; Start 12/13/18 at 03:00 Rocuronium [place] (Zemuron) 50 mg STK-MED ONCE .ROUTE ; Start 12/12/18 at 15:37 ; Stop 12/12/18 at 15:39; Status DC Fentanyl Citrate (Fentanyl 2ml Vial) 100 mcg STK-MED ONCE .ROUTE ; Start at 15:37; Stop 12/12/18 at 15:39; Status DC Ketamine HCl (Ketamine) 50 mg STK-MED ONCE .ROUTE ; Start 12/12/18 at 15:49; Stop 12/12/18 at 15:51; Status DC Propofol 20 ml @ As Directed STK-MED ONCE IV ; Start 12/12/18 at 15:49; Stop at 15:51; Status DC Lidocaine HCl (Lidocaine Pf 2% Vial) 5 ml STK-MED ONCE .ROUTE ; Start 12/12/18 at 15:49; Stop 12/12/18 at 15:51; Status DC Dexamethasone Sodium Phosphate (Decadron) 20 mg STK-MED ONCE .ROUTE ; Start at 15:49; Stop 12/12/18 at 15:51; Status DC Ondansetron HCl (Zofran) 4 mg STK-MED ONCE .ROUTE ; Start 12/12/18 at 15:49; Stop 12/12/18 at 15:51; Status DC Phenylephrine HCl (PHENYLEPHRINE in 0.9% NACL PF) 1 mg STK-MED ONCE IV ; Start 12/12/18 at 15:49; Stop 12/12/18 at 15:51; Status DC Desflurane (Suprane) 90 ml STK-MED ONCE IH ; Start 12/12/18 at 15:50; Stop 12/12 at 15:52; Status DC Levofloxacin/ Dextrose 100 ml @ 100 mls/hr Q48H IV Last administered on at 15:13; Start 12/13/18 at 16:00; Stop 12/14/18 at 13:26; Status DC Esmolol HCl (Brevibloc) 100 mg STK-MED ONCE IV ; Start 12/12/18 at 16:24; Stop 12/12/18 at 16:26; Status DC Rocuronium [place] (Zemuron) 100 mg STK-MED ONCE .ROUTE ; Start 12/12/18 at 16: 28; Stop 12/12/18 at 16:30; Status DC Phenylephrine HCl (Veto-Synephrine Inj) 10 mg STK-MED ONCE .ROUTE ; Start at 16:41; Stop 12/12/18 at 16:43; Status DC Cellulose (Surgicel Hemostat 4x8) 1 each STK-MED ONCE .ROUTE ; Start 12/12/18 at 16:47; Stop 12/12/18 at 16:49; Status DC Propofol 100 ml @ 0 mls/hr CONT PRN IV SEE PROTOCOL Last administered on at 05:52; Start 12/12/18 at 17:15; Stop 12/14/18 at 13:15; Status DC Sodium Chloride (Normal Saline Flush) 3 ml QSHIFT PRN IV AFTER MEDS AND BLOOD DRAWS; Start 12/12/18 at 17:30 Hydromorphone HCl (Dilaudid) 1 mg PRN Q3HRS PRN IV PAIN SEVERE Last administered on 12/17/18at 13:17; Start 12/12/18 at 17:30 Ondansetron HCl (Zofran) 4 mg PRN Q6HRS PRN IV NAUESA, 1ST CHOICE; Start at 17:30 Midazolam HCl (Versed) 2 mg PRN Q30MIN PRN IV SEE COMMENTS.; Start 12/12/18 at 17:30; Stop 12/14/18 at 13:20; Status DC Midazolam HCl (Versed) 5 mg STK-MED ONCE .ROUTE ; Start 12/12/18 at 17:23; Stop 12/12/18 at 17:25; Status DC Norepinephrine Bitartrate 250 ml @ 1.875 mls/ hr CONT PRN IV SEE I/O RECORD; Start 12/12/18 at 18:15 Sodium Chloride 1,000 ml @ 1,000 mls/hr 1X ONCE IV Last administered on at 18:45; Start 12/12/18 at 18:15; Stop 12/12/18 at 19:14; Status DC Insulin Human Lispro (HumaLOG) 8 units 1X ONCE SQ Last administered on at 22:15; Start 12/12/18 at 22:30; Stop 12/12/18 at 22:31; Status DC Insulin Human Regular (HumuLIN R VIAL) 10 unit 1X ONCE IV Last administered on 12/13/18at 08:40; Start 12/13/18 at 07:30; Stop 12/13/18 at 07:46; Status DC Insulin Human Lispro (HumaLOG) 6 units 1X ONCE SQ Last administered on at 08:41; Start 12/13/18 at 07:30; Stop 12/13/18 at 07:46; Status DC Insulin Human Lispro (HumaLOG) 0-7 UNITS Q4HRS SQ ; Start 12/13/18 at 08:00; Stop 12/13/18 at 20:34; Status DC Dextrose (Dextrose 50%-Water Syringe) 12.5 gm PRN Q15MIN PRN IV SEE COMMENTS; Start 12/13/18 at 08:00; Stop 12/14/18 at 12:57; Status DC Sodium Chloride 1,000 ml @ 1,000 mls/hr 1X ONCE IV Last administered on at 10:14; Start 12/13/18 at 10:00; Stop 12/13/18 at 11:00; Status DC Sodium Bicarbonate (Sodium Bicarb Adult 8.4% Syr) 50 meq 1X ONCE IV Last administered on 12/13/18at 10:14; Start 12/13/18 at 10:00; Stop 12/13/18 at 10:08 ; Status DC Insulin Human Regular 150 unit/ Sodium Chloride 151.5 ml @ 0 mls/hr CONT PRN PRN IV PER PROTOCOL; Start 12/13/18 at 11:00; Stop 12/13/18 at 20:34; Status DC Potassium Chloride/Water 100 ml @ 100 mls/hr PRN Q1HR PRN IV SEE COMMENTS; Start 12/13/18 at 11:00 Potassium Chloride/Water 100 ml @ 100 mls/hr PRN Q1HR PRN IV SEE COMMENTS; Start 12/13/18 at 11:00 Potassium Chloride/Water 100 ml @ 100 mls/hr PRN Q1HR PRN IV SEE COMMENTS; Start 12/13/18 at 11:00 Sodium Bicarbonate 50 meq/Sodium Chloride 1,050 ml @ 150 mls/hr Q7H IV Last administered on 12/15/18at 07:53; Start 12/13/18 at 11:00; Stop 12/15/18 at 14:19 ; Status DC Albumin Human 500 ml @ 125 mls/hr 1X ONCE IV Last administered on 12/13/18at 14:52; Start 12/13/18 at 11:30; Stop 12/13/18 at 15:29; Status DC Vitamin A/Vitamin D (Vitamin A & D Ointment) 1 ada PRN TID PRN TP SKIN PROTECTION Last administered on 12/15/18at 20:45; Start 12/13/18 at 14:00 Magnesium Sulfate/ Dextrose 100 ml @ 25 mls/hr 1X ONCE IV Last administered on 12/13/18at 19:24; Start 12/13/18 at 18:30; Stop 12/13/18 at 22:29; Status DC Potassium Chloride/Water 100 ml @ 100 mls/hr Q1HR IV Last administered on 12/13at 21:42; Start 12/13/18 at 19:00; Stop 12/13/18 at 22:59; Status DC Fentanyl Citrate (Fentanyl 2ml Vial) 25 mcg PRN Q2HR PRN IV MODERATE PAIN; Start 12/13/18 at 18:30 Dextrose/Sodium Chloride 1,000 ml @ 250 mls/hr Q4H IV Last administered on at 20:00; Start 12/13/18 at 20:00; Stop 12/13/18 at 20:34; Status DC Insulin Glargine (Lantus) 20 units QHS SQ Last administered on 12/15/18at 21:17 ; Start 12/13/18 at 21:00 Insulin Human Lispro (HumaLOG) 0-9 UNITS Q4HRS SQ Last administered on at 13:21; Start 12/14/18 at 00:00 Dextrose (Dextrose 50%-Water Syringe) 12.5 gm PRN Q15MIN PRN IV SEE COMMENTS; Start 12/13/18 at 20:30 Albumin Human 500 ml @ 125 mls/hr 1X ONCE IV Last administered on 12/14/18at 00:09; Start 12/13/18 at 23:15; Stop 12/14/18 at 03:14; Status DC Levofloxacin/ Dextrose 150 ml @ 100 mls/hr Q48H IV Last administered on at 16:09; Start 12/15/18 at 16:00; Stop 12/16/18 at 13:54; Status DC Enoxaparin Sodium (Lovenox 60mg Syringe) 60 mg Q12HR SQ Last administered on at 09:11; Start 12/15/18 at 09:00 Sodium Chloride 1,000 ml @ 75 mls/hr [id number] IV Last administered on at 09:11; Start 12/15/18 at 15:00 Lactobacillus Rhamnosus (Culturelle) 1 cap BID PO Last administered on at 09:11; Start 12/16/18 at 21:00 Famotidine (Pepcid) 20 mg QHS PO Last administered on 12/16/18at 21:10; Start at 21:00 Magnesium Sulfate 50 ml @ 25 mls/hr 1X ONCE IV Last administered on 12/17/18at 13:17; Start 12/17/18 at 13:15; Stop 12/17/18 at 15:14 Micafungin Sodium 100 mg/Dextrose 100 ml @ 100 mls/hr Q24H IV ; Start 12/17/18 at 14:00 Active Scripts Active Reported Potassium Chloride 20 Meq Tablet.er 20 Meq PO TIDWMEALS Roxicodone (Oxycodone HCl) 5 Mg Tablet 5 Mg PO PRN Q4HRS PRN Nystatin 1 Each Powder.ea. 1 Each MC BID Levemir (Insulin Detemir) 100 Unit/1 Ml Vial 20 Unit SQ HS Novolog (Insulin Aspart) 100 Unit/1 Ml Cartridge 0 SQ QIDACHS Guaifenesin 600 Mg Tablet.er 600 Mg PO BID Bisacodyl 10 Mg Supp.rect 10 Mg RC PRN DAILY PRN Alprazolam 1 Mg Tablet 1 Tab PO TID PRN Acetaminophen Supp (Acetaminophen) 650 Mg Supp.rect 650 Mg RC PRN Q6HRS PRN Proair Hfa Inhaler (Albuterol Sulfate) 8.5 Gm Hfa.aer.ad 1 Puff INH PRN Q6HRS PRN Levothyroxine Sodium 75 Mcg Tablet 1 Tab PO DAILY Vitals/I & O Vital Sign - Last 24 Hours 12/16/18 12/16/18 12/16/18 12/16/18 15:00 19:00 20:15 21:07 Temp 98.0 98.2 98.0 98.2 Pulse 119 116 Resp 20 18 B/P (MAP) 151/61 (91) 140/63 (88) Pulse Ox 95 95 O2 Delivery Nasal Cannula Nasal Cannula O2 Flow Rate 3.0 3.0 3.0 12/16/18 12/17/18 12/17/18 12/17/18 23:00 01:46 02:16 03:00 Temp 98.2 98.1 98.2 98.1 Pulse 116 116 Resp 20 20 B/P (MAP) 155/81 (105) 147/ Pulse Ox 96 98 O2 Delivery Nasal Cannula Nasal Cannula O2 Flow Rate 3.0 3.0 12/17/18 12/17/18 12/17/18 12/17/18 07:00 07:51 09:11 11:00 Temp 98.3 98.4 98.3 98.4 Pulse 115 112 Resp 16 18 B/P (MAP) 164/74 (104) 151/47 (81) Pulse Ox 99 98 O2 Delivery Nasal Cannula Nasal Cannula Nasal Cannula Nasal Cannula O2 Flow Rate 3.0 3.0 3.0 3.0 12/17/18 13:17 O2 Delivery Nasal Cannula O2 Flow Rate 3.0 Intake and Output 12/16/18 12/16/18 12/17/18 15:01 23:01 07:01 Intake Total 120 ml 0 ml Output Total 1175 ml 300 ml Balance -1055 ml -300 ml KALLIE RAINES MD Dec 17, 2018 13:54
--- NOTE | 2018-12-17 14:26 | RAD ---
LEFT UPPER EXTREMITY VENOUS DUPLEX EXAMINATION Clinical indications: History of left humerus fracture. Swelling. Findings: Duplex sonography (including gardiner scale evaluation and color flow and waveform spectral analysis) of the left upper extremity was attempted. However, the upper left arm is in a brace and the patient cannot move arm. In addition, the patient's arm is large in size. Therefore, this study is very limited and specifically only the left subclavian vein and left axillary vein and left radial vein were visualized on this study and are compressible and patent. The left internal jugular, left cephalic, left basilic and left brachial and left ulnar veins are not visualized. Impression: Limited study for reasons discussed above. No DVT is identified within the left subclavian or axillary or brachial veins. Electronically signed by: Sivakumar Brenner MD (12/17/2018 2:22 PM) [facility]
[2018-12-17 15:00] VITALS: BP 199/82
[2018-12-17] MEDS: MICAFUNGIN 100 MG in IV DEXTROSE 5% 100ML 100 ML IV SCH (15:22)
[2018-12-17] MEDS: MORPHINE SULFATE 4 MG/ML VIAL. IV PRN (15:22)
--- NOTE | 2018-12-17 16:39 | PDOC2 ---
CONSULT Date of Consult Date of Consult DATE: 12/17/18 TIME: 16:33 Reason for Consult Reason for Consult: Nonsustained ventricular tachycardia Referring Physician Referring Physician: Dr. Napier Identification/Chief Complaint Chief Complaint Abdominal pain Source Source: Chart review, Patient History of Present Illness Reason for Visit: The patient is a 73-year-old female who was originally admitted on the for abdominal pain. Patient was found to be in septic shock and went to the emergency abdominal surgery for a left lower quadrant abdominal wall abscess and perforated colon were repaired. She has had a prolonged postoperative course is outlined above but is gradually improved. Her rhythm has been stable until last night when she had a 16 beat run of nonsustained ventricular tachycardia. This has not recently been repeated. Magnesium levels at the time of 1.6 and potassium level was 4.1. The patient is resting fairly comfortably in bed today. Past Medical History Cardiovascular: HTN, Hyperlipidemia Pulmonary: COPD, Other GI: Other (abdominal pain with emergency surgery as above) Psych: Anxiety, Depression Musculoskeletal: Other Rheumatologic: No pertinent hx Infectious disease: No pertinent hx ENT: No pertinent hx Renal/: No pertinent hx Endocrine: Diabetes Past Surgical History Past Surgical History: Hernia Repair, Tonsillectomy, Hysterectomy, Other ( gastric bypass, emergency surgery as outlined above.) Family History Family History: No Significant, Family History Unknown Social History No ALCOHOL: none Drugs: None Lives: [facility] Current Medications Current Medications Current Medications Ondansetron HCl (Zofran) 4 mg PRN Q6HRS PRN IV NAUSEA/VOMITING; Start 12/12/18 at 12:15; Stop 12/13/18 at 10:37; Status DC Prochlorperazine Edisylate (Compazine) 10 mg PRN Q6HRS PRN IV NAUSEA/VOMITING, 2ND CHOICE; Start 12/12/18 at 12:15 Prochlorperazine (Compazine) 25 mg PRN Q12HR PRN MS NAUSEA/VOMITING; Start at 12:15 Al Hydroxide/Mg Hydroxide (Mylanta Plus Xs) 30 ml PRN Q3HRS PRN PO HEARTBURN / GAS; Start 12/12/18 at 12:15 Calcium Carbonate/ Glycine (Tums) 500 mg PRN Q3HRS PRN PO UPSET STOMACH; Start 12/12/18 at 12:15 Zolpidem Tartrate (Ambien) 5 mg PRN QHS PRN PO INSOMNIA, MAY REPEAT IN 1HR; Start 12/12/18 at 12:15 Oxycodone HCl (Roxicodone) 5 mg PRN Q3HRS PRN PO BREAKTHROUGH PAIN Last administered on 12/17/18at 09:11; Start 12/12/18 at 12:15 Morphine Sulfate (Morphine Sulfate) 2 mg PRN Q2HR PRN IV MILD PAIN Last administered on 12/17/18at 15:22; Start 12/12/18 at 12:15 Acetaminophen (Tylenol) 650 mg PRN Q6HRS PRN PO Headaches, Temp > 101.5F; Start 12/12/18 at 12:15 Magnesium Hydroxide (Milk Of Magnesia) 2,400 mg PRN Q12HR PRN PO CONSTIPATION; Start 12/12/18 at 12:15 Bisacodyl (Dulcolax Supp) 10 mg PRN DAILY PRN MS CONSTIPATION; Start 12/12/18 at 12:15; Stop 12/12/18 at 12:26; Status DC Enoxaparin Sodium (Lovenox 40mg Syringe) 40 mg Q24H SQ ; Start 12/12/18 at 13:00 ; Stop 12/12/18 at 13:00; Status DC Sodium Chloride 1,000 ml @ 100 mls/hr Q10H IV Last administered on 12/13/18at 08:42; Start 12/12/18 at 12:15; Stop 12/13/18 at 11:01; Status DC Famotidine (Pepcid Vial) 20 mg QHS IVP Last administered on 12/15/18at 21:09; Start 12/12/18 at 21:00; Stop 12/16/18 at 15:32; Status DC Acetaminophen (Tylenol Supp) 650 mg PRN Q6HRS PRN RC FEVER; Start 12/12/18 at 12:30 Albuterol Sulfate (Ventolin Neb Soln) 2.5 mg PRN Q6HRS PRN INH SHORTNESS OF BREATH Last administered on 12/15/18at 04:17; Start 12/12/18 at 12:30 Bisacodyl (Dulcolax Supp) 10 mg PRN DAILY PRN RC CONSTIPATION; Start 12/12/18 at 12:30 Insulin Glargine (Lantus) 20 units QHS SQ ; Start 12/12/18 at 21:00; Stop at 21:00; Status DC Nystatin (Nystop) 1 ada BID TP Last administered on 12/17/18at 09:12; Start at 13:00 Norepinephrine Bitartrate 250 ml @ 1.875 mls/ hr CONT PRN IV SEE I/O RECORD Last administered on 12/12/18at 18:17; Start 12/12/18 at 12:45; Stop 12/12/18 at 12:45; Status DC Norepinephrine Bitartrate 250 ml @ 1.875 mls/ hr CONT PRN IV SEE I/O RECORD; Start 12/12/18 at 12:30; Status Cancel Levofloxacin/ Dextrose (Levaquin Per Pharmacy) 1 each PRN DAILY PRN MC SEE COMMENTS; Start 12/12/18 at 12:30; Stop 12/16/18 at 13:54; Status DC Metronidazole 100 ml @ 100 mls/hr Q8HRS IV Last administered on 12/13/18at 05: 53; Start 12/12/18 at 14:00; Stop 12/13/18 at 11:32; Status DC Insulin Glargine (Lantus) 10 units QHS SQ Last administered on 12/12/18at 22:11 ; Start 12/12/18 at 21:00; Stop 12/13/18 at 20:34; Status DC Levofloxacin/ Dextrose 100 ml @ 100 mls/hr Q24H IV Last administered on at 14:11; Start 12/12/18 at 13:00; Stop 12/12/18 at 15:54; Status DC Enoxaparin Sodium (Lovenox 40mg Syringe) 40 mg Q24H SQ Last administered on at 14:16; Start 12/12/18 at 13:00; Stop 12/15/18 at 07:40; Status DC Fentanyl Citrate (Fentanyl 2ml Vial) 25 mcg PRN Q5MIN PRN IV MILD PAIN; Start 12/12/18 at 14:00; Stop 12/13/18 at 13:59; Status DC Fentanyl Citrate (Fentanyl 2ml Vial) 50 mcg PRN Q5MIN PRN IV MODERATE TO SEVERE PAIN; Start 12/12/18 at 14:00; Stop 12/13/18 at 13:59; Status DC Morphine Sulfate (Morphine Sulfate) 1 mg PRN Q10MIN PRN IV PAIN; Start at 14:15; Stop 12/13/18 at 10:38; Status DC Ringer's Solution 1,000 ml @ 30 mls/hr Q24H IV ; Start 12/12/18 at 13:55; Stop 12/13/18 at 01:54; Status DC Lidocaine HCl (Xylocaine-Mpf 1% 2ml Vial) 2 ml 1X PRN PRN ID IV START; Start at 14:00; Stop 12/13/18 at 13:59; Status DC Hydromorphone HCl (Dilaudid) 0.5 mg PRN Q10MIN PRN IV SEV PAIN, Second choice; Start 12/12/18 at 14:00; Stop 12/13/18 at 13:59; Status DC Prochlorperazine Edisylate (Compazine) 5 mg PACU PRN PRN IV NAUSEA, MRX1; Start 12/12/18 at 14:00; Stop 12/13/18 at 13:59; Status DC Tigecycline 100 mg/Dextrose 100 ml @ 200 mls/hr 1X ONCE IV Last administered on 12/12/18at 17:40; Start 12/12/18 at 15:15; Stop 12/12/18 at 15:44; Status DC Tigecycline 50 mg/ Dextrose 50 ml @ 100 mls/hr Q12H IV Last administered on at 02:28; Start 12/13/18 at 03:00 Rocuronium Fine (Zemuron) 50 mg STK-MED ONCE .ROUTE ; Start 12/12/18 at 15:37 ; Stop 12/12/18 at 15:39; Status DC Fentanyl Citrate (Fentanyl 2ml Vial) 100 mcg STK-MED ONCE .ROUTE ; Start at 15:37; Stop 12/12/18 at 15:39; Status DC Ketamine HCl (Ketamine) 50 mg STK-MED ONCE .ROUTE ; Start 12/12/18 at 15:49; Stop 12/12/18 at 15:51; Status DC Propofol 20 ml @ As Directed STK-MED ONCE IV ; Start 12/12/18 at 15:49; Stop at 15:51; Status DC Lidocaine HCl (Lidocaine Pf 2% Vial) 5 ml STK-MED ONCE .ROUTE ; Start 12/12/18 at 15:49; Stop 12/12/18 at 15:51; Status DC Dexamethasone Sodium Phosphate (Decadron) 20 mg STK-MED ONCE .ROUTE ; Start at 15:49; Stop 12/12/18 at 15:51; Status DC Ondansetron HCl (Zofran) 4 mg STK-MED ONCE .ROUTE ; Start 12/12/18 at 15:49; Stop 12/12/18 at 15:51; Status DC Phenylephrine HCl (PHENYLEPHRINE in 0.9% NACL PF) 1 mg STK-MED ONCE IV ; Start 12/12/18 at 15:49; Stop 12/12/18 at 15:51; Status DC Desflurane (Suprane) 90 ml STK-MED ONCE IH ; Start 12/12/18 at 15:50; Stop 12/12 at 15:52; Status DC Levofloxacin/ Dextrose 100 ml @ 100 mls/hr Q48H IV Last administered on at 15:13; Start 12/13/18 at 16:00; Stop 12/14/18 at 13:26; Status DC Esmolol HCl (Brevibloc) 100 mg STK-MED ONCE IV ; Start 12/12/18 at 16:24; Stop 12/12/18 at 16:26; Status DC Rocuronium Fine (Zemuron) 100 mg STK-MED ONCE .ROUTE ; Start 12/12/18 at 16: 28; Stop 12/12/18 at 16:30; Status DC Phenylephrine HCl (Veto-Synephrine Inj) 10 mg STK-MED ONCE .ROUTE ; Start at 16:41; Stop 12/12/18 at 16:43; Status DC Cellulose (Surgicel Hemostat 4x8) 1 each STK-MED ONCE .ROUTE ; Start 12/12/18 at 16:47; Stop 12/12/18 at 16:49; Status DC Propofol 100 ml @ 0 mls/hr CONT PRN IV SEE PROTOCOL Last administered on at 05:52; Start 12/12/18 at 17:15; Stop 12/14/18 at 13:15; Status DC Sodium Chloride (Normal Saline Flush) 3 ml QSHIFT PRN IV AFTER MEDS AND BLOOD DRAWS; Start 12/12/18 at 17:30 Hydromorphone HCl (Dilaudid) 1 mg PRN Q3HRS PRN IV PAIN SEVERE Last administered on 12/17/18at 13:17; Start 12/12/18 at 17:30 Ondansetron HCl (Zofran) 4 mg PRN Q6HRS PRN IV NAUESA, 1ST CHOICE; Start at 17:30 Midazolam HCl (Versed) 2 mg PRN Q30MIN PRN IV SEE COMMENTS.; Start 12/12/18 at 17:30; Stop 12/14/18 at 13:20; Status DC Midazolam HCl (Versed) 5 mg STK-MED ONCE .ROUTE ; Start 12/12/18 at 17:23; Stop 12/12/18 at 17:25; Status DC Norepinephrine Bitartrate 250 ml @ 1.875 mls/ hr CONT PRN IV SEE I/O RECORD; Start 12/12/18 at 18:15 Sodium Chloride 1,000 ml @ 1,000 mls/hr 1X ONCE IV Last administered on at 18:45; Start 12/12/18 at 18:15; Stop 12/12/18 at 19:14; Status DC Insulin Human Lispro (HumaLOG) 8 units 1X ONCE SQ Last administered on at 22:15; Start 12/12/18 at 22:30; Stop 12/12/18 at 22:31; Status DC Insulin Human Regular (HumuLIN R VIAL) 10 unit 1X ONCE IV Last administered on 12/13/18at 08:40; Start 12/13/18 at 07:30; Stop 12/13/18 at 07:46; Status DC Insulin Human Lispro (HumaLOG) 6 units 1X ONCE SQ Last administered on at 08:41; Start 12/13/18 at 07:30; Stop 12/13/18 at 07:46; Status DC Insulin Human Lispro (HumaLOG) 0-7 UNITS Q4HRS SQ ; Start 12/13/18 at 08:00; Stop 12/13/18 at 20:34; Status DC Dextrose (Dextrose 50%-Water Syringe) 12.5 gm PRN Q15MIN PRN IV SEE COMMENTS; Start 12/13/18 at 08:00; Stop 12/14/18 at 12:57; Status DC Sodium Chloride 1,000 ml @ 1,000 mls/hr 1X ONCE IV Last administered on at 10:14; Start 12/13/18 at 10:00; Stop 12/13/18 at 11:00; Status DC Sodium Bicarbonate (Sodium Bicarb Adult 8.4% Syr) 50 meq 1X ONCE IV Last administered on 12/13/18at 10:14; Start 12/13/18 at 10:00; Stop 12/13/18 at 10:08 ; Status DC Insulin Human Regular 150 unit/ Sodium Chloride 151.5 ml @ 0 mls/hr CONT PRN PRN IV PER PROTOCOL; Start 12/13/18 at 11:00; Stop 12/13/18 at 20:34; Status DC Potassium Chloride/Water 100 ml @ 100 mls/hr PRN Q1HR PRN IV SEE COMMENTS; Start 12/13/18 at 11:00 Potassium Chloride/Water 100 ml @ 100 mls/hr PRN Q1HR PRN IV SEE COMMENTS; Start 12/13/18 at 11:00 Potassium Chloride/Water 100 ml @ 100 mls/hr PRN Q1HR PRN IV SEE COMMENTS; Start 12/13/18 at 11:00 Sodium Bicarbonate 50 meq/Sodium Chloride 1,050 ml @ 150 mls/hr Q7H IV Last administered on 12/15/18at 07:53; Start 12/13/18 at 11:00; Stop 12/15/18 at 14:19 ; Status DC Albumin Human 500 ml @ 125 mls/hr 1X ONCE IV Last administered on 12/13/18at 14:52; Start 12/13/18 at 11:30; Stop 12/13/18 at 15:29; Status DC Vitamin A/Vitamin D (Vitamin A & D Ointment) 1 ada PRN TID PRN TP SKIN PROTECTION Last administered on 12/15/18at 20:45; Start 12/13/18 at 14:00 Magnesium Sulfate/ Dextrose 100 ml @ 25 mls/hr 1X ONCE IV Last administered on 12/13/18at 19:24; Start 12/13/18 at 18:30; Stop 12/13/18 at 22:29; Status DC Potassium Chloride/Water 100 ml @ 100 mls/hr Q1HR IV Last administered on 12/13at 21:42; Start 12/13/18 at 19:00; Stop 12/13/18 at 22:59; Status DC Fentanyl Citrate (Fentanyl 2ml Vial) 25 mcg PRN Q2HR PRN IV MODERATE PAIN; Start 12/13/18 at 18:30 Dextrose/Sodium Chloride 1,000 ml @ 250 mls/hr Q4H IV Last administered on at 20:00; Start 12/13/18 at 20:00; Stop 12/13/18 at 20:34; Status DC Insulin Glargine (Lantus) 20 units QHS SQ Last administered on 12/15/18at 21:17 ; Start 12/13/18 at 21:00 Insulin Human Lispro (HumaLOG) 0-9 UNITS Q4HRS SQ Last administered on at 13:21; Start 12/14/18 at 00:00 Dextrose (Dextrose 50%-Water Syringe) 12.5 gm PRN Q15MIN PRN IV SEE COMMENTS; Start 12/13/18 at 20:30 Albumin Human 500 ml @ 125 mls/hr 1X ONCE IV Last administered on 12/14/18at 00:09; Start 12/13/18 at 23:15; Stop 12/14/18 at 03:14; Status DC Levofloxacin/ Dextrose 150 ml @ 100 mls/hr Q48H IV Last administered on at 16:09; Start 12/15/18 at 16:00; Stop 12/16/18 at 13:54; Status DC Enoxaparin Sodium (Lovenox 60mg Syringe) 60 mg Q12HR SQ Last administered on at 09:11; Start 12/15/18 at 09:00 Sodium Chloride 1,000 ml @ 75 mls/hr [id number] IV Last administered on at 09:11; Start 12/15/18 at 15:00 Lactobacillus Rhamnosus (Culturelle) 1 cap BID PO Last administered on at 09:11; Start 12/16/18 at 21:00 Famotidine (Pepcid) 20 mg QHS PO Last administered on 12/16/18at 21:10; Start at 21:00 Magnesium Sulfate 50 ml @ 25 mls/hr 1X ONCE IV Last administered on 12/17/18at 13:17; Start 12/17/18 at 13:15; Stop 12/17/18 at 15:14; Status DC Micafungin Sodium 100 mg/Dextrose 100 ml @ 100 mls/hr Q24H IV Last administered on 12/17/18at 15:22; Start 12/17/18 at 14:00 Active Scripts Active Reported Potassium Chloride 20 Meq Tablet.er 20 Meq PO TIDWMEALS Roxicodone (Oxycodone HCl) 5 Mg Tablet 5 Mg PO PRN Q4HRS PRN Nystatin 1 Each Powder.ea. 1 Each MC BID Levemir (Insulin Detemir) 100 Unit/1 Ml Vial 20 Unit SQ HS Novolog (Insulin Aspart) 100 Unit/1 Ml Cartridge 0 SQ QIDACHS Guaifenesin 600 Mg Tablet.er 600 Mg PO BID Bisacodyl 10 Mg Supp.rect 10 Mg RC PRN DAILY PRN Alprazolam 1 Mg Tablet 1 Tab PO TID PRN Acetaminophen Supp (Acetaminophen) 650 Mg Supp.rect 650 Mg RC PRN Q6HRS PRN Proair Hfa Inhaler (Albuterol Sulfate) 8.5 Gm Hfa.aer.ad 1 Puff INH PRN Q6HRS PRN Levothyroxine Sodium 75 Mcg Tablet 1 Tab PO DAILY Allergies Allergies: Coded Allergies: Penicillins (Verified Allergy, Intermediate, 12/08/16) Sulfa (Sulfonamide Antibiotics) (Verified Allergy, Intermediate, 12/08/16) aspirin (Verified Allergy, Intermediate, 12/08/16) cephalexin (Verified Allergy, Intermediate, 04/19/15) diazepam (Verified Allergy, Intermediate, 12/08/16) diphenhydramine (Verified Allergy, Intermediate, 12/08/16) erythromycin base (Verified Allergy, Intermediate, 12/08/16) ROS General: YES: Fatigue Physical Exam General: No acute distress HEENT: Atraumatic Lungs: Clear to auscultation Heart: Regular rate Abdomen: Normal bowel sounds Vitals VITALS Vital Signs Date Time Temp Pulse Resp B/P (MAP) Pulse Ox O2 Delivery O2 Flow Rate FiO2 12/17/18 15:22 BiPAP/CPAP 3.0 12/17/18 15:00 98.3 112 18 199/82 (121) 96 98.3 Labs Labs Laboratory Tests Test 12/15/18 20:39 12/15/18 23:50 12/16/18 04:10 12/16/18 04:40 Glucose (Fingerstick) 225 mg/dL (70-99) 200 mg/dL (70-99) 197 mg/dL (70-99) White Blood Count 10.2 x10^3/uL (4.0-11.0) Red Blood Count 2.88 x10^6/uL (3.50-5.40) Hemoglobin 8.4 g/dL (12.0-15.5) Hematocrit 26.1 % (36.0-47.0) Mean Corpuscular Volume 91 fL (79-100) Mean Corpuscular Hemoglobin 29 pg (25-35) Mean Corpuscular Hemoglobin Concent 32 g/dL (31-37) Red Cell Distribution Width 14.6 % (11.5-14.5) Platelet Count 277 x10^3/uL (140-400) Neutrophils (%) (Auto) 81 % (31-73) Lymphocytes (%) (Auto) 13 % (24-48) Monocytes (%) (Auto) 6 % (0-9) Eosinophils (%) (Auto) 0 % (0-3) Basophils (%) (Auto) 0 % (0-3) Neutrophils # (Auto) 8.2 x10^3uL (1.8-7.7) Lymphocytes # (Auto) 1.3 x10^3/uL (1.0-4.8) Monocytes # (Auto) 0.6 x10^3/uL (0.0-1.1) Eosinophils # (Auto) 0.0 x10^3/uL (0.0-0.7) Basophils # (Auto) 0.0 x10^3/uL (0.0-0.2) Sodium Level 141 mmol/L (136-145) Potassium Level 3.8 mmol/L (3.5-5.1) Chloride Level 101 mmol/L (98-107) Carbon Dioxide Level 36 mmol/L (21-32) Anion Gap 4 (6-14) Blood Urea Nitrogen 50 mg/dL (7-20) Creatinine 1.2 mg/dL (0.6-1.0) Estimated GFR (Cockcroft-Gault) 43.9 BUN/Creatinine Ratio 42 (6-20) Glucose Level 196 mg/dL (70-99) Calcium Level 7.8 mg/dL (8.5-10.1) Total Bilirubin 0.6 mg/dL (0.2-1.0) Aspartate Amino Transf (AST/SGOT) 17 U/L (15-37) Alanine Aminotransferase (ALT/SGPT) 20 U/L (14-59) Alkaline Phosphatase 157 U/L (46-116) Total Protein 5.5 g/dL (6.4-8.2) Albumin 1.8 g/dL (3.4-5.0) Albumin/Globulin Ratio 0.5 (1.0-1.7) Test 12/16/18 08:03 12/16/18 11:46 12/16/18 16:15 12/16/18 20:37 Glucose (Fingerstick) 184 mg/dL (70-99) 247 mg/dL (70-99) 170 mg/dL (70-99) 108 mg/dL (70-99) Test 12/17/18 00:07 12/17/18 04:30 12/17/18 04:39 12/17/18 05:00 Glucose (Fingerstick) 182 mg/dL (70-99) 202 mg/dL (70-99) White Blood Count 12.3 x10^3/uL (4.0-11.0) Red Blood Count 3.21 x10^6/uL (3.50-5.40) Hemoglobin 9.1 g/dL (12.0-15.5) Hematocrit 29.0 % (36.0-47.0) Mean Corpuscular Volume 91 fL (79-100) Mean Corpuscular Hemoglobin 29 pg (25-35) Mean Corpuscular Hemoglobin Concent 32 g/dL (31-37) Red Cell Distribution Width 14.8 % (11.5-14.5) Platelet Count 319 x10^3/uL (140-400) Neutrophils (%) (Auto) 80 % (31-73) Lymphocytes (%) (Auto) 13 % (24-48) Monocytes (%) (Auto) 7 % (0-9) Eosinophils (%) (Auto) 0 % (0-3) Basophils (%) (Auto) 0 % (0-3) Neutrophils # (Auto) 9.8 x10^3uL (1.8-7.7) Lymphocytes # (Auto) 1.6 x10^3/uL (1.0-4.8) Monocytes # (Auto) 0.8 x10^3/uL (0.0-1.1) Eosinophils # (Auto) 0.0 x10^3/uL (0.0-0.7) Basophils # (Auto) 0.0 x10^3/uL (0.0-0.2) Sodium Level 143 mmol/L (136-145) Potassium Level 4.1 mmol/L (3.5-5.1) Chloride Level 104 mmol/L (98-107) Carbon Dioxide Level 32 mmol/L (21-32) Anion Gap 7 (6-14) Blood Urea Nitrogen 40 mg/dL (7-20) Creatinine 1.1 mg/dL (0.6-1.0) Estimated GFR (Cockcroft-Gault) 48.6 BUN/Creatinine Ratio 36 (6-20) Glucose Level 248 mg/dL (70-99) Calcium Level 8.4 mg/dL (8.5-10.1) Total Bilirubin 1.0 mg/dL (0.2-1.0) Aspartate Amino Transf (AST/SGOT) 23 U/L (15-37) Alanine Aminotransferase (ALT/SGPT) 22 U/L (14-59) Alkaline Phosphatase 192 U/L (46-116) Total Protein 5.7 g/dL (6.4-8.2) Albumin 1.8 g/dL (3.4-5.0) Albumin/Globulin Ratio 0.5 (1.0-1.7) Thyroid Stimulating Hormone (TSH) 0.746 uIU/mL (0.358-3.74) Magnesium Level 1.6 mg/dL (1.8-2.4) Test 12/17/18 05:56 12/17/18 08:02 12/17/18 12:04 Glucose (Fingerstick) 228 mg/dL (70-99) 238 mg/dL (70-99) 230 mg/dL (70-99) Laboratory Tests Test 12/16/18 20:37 12/17/18 00:07 12/17/18 04:30 12/17/18 04:39 Glucose (Fingerstick) 108 mg/dL (70-99) 182 mg/dL (70-99) 202 mg/dL (70-99) White Blood Count 12.3 x10^3/uL (4.0-11.0) Red Blood Count 3.21 x10^6/uL (3.50-5.40) Hemoglobin 9.1 g/dL (12.0-15.5) Hematocrit 29.0 % (36.0-47.0) Mean Corpuscular Volume 91 fL (79-100) Mean Corpuscular Hemoglobin 29 pg (25-35) Mean Corpuscular Hemoglobin Concent 32 g/dL (31-37) Red Cell Distribution Width 14.8 % (11.5-14.5) Platelet Count 319 x10^3/uL (140-400) Neutrophils (%) (Auto) 80 % (31-73) Lymphocytes (%) (Auto) 13 % (24-48) Monocytes (%) (Auto) 7 % (0-9) Eosinophils (%) (Auto) 0 % (0-3) Basophils (%) (Auto) 0 % (0-3) Neutrophils # (Auto) 9.8 x10^3uL (1.8-7.7) Lymphocytes # (Auto) 1.6 x10^3/uL (1.0-4.8) Monocytes # (Auto) 0.8 x10^3/uL (0.0-1.1) Eosinophils # (Auto) 0.0 x10^3/uL (0.0-0.7) Basophils # (Auto) 0.0 x10^3/uL (0.0-0.2) Sodium Level 143 mmol/L (136-145) Potassium Level 4.1 mmol/L (3.5-5.1) Chloride Level 104 mmol/L (98-107) Carbon Dioxide Level 32 mmol/L (21-32) Anion Gap 7 (6-14) Blood Urea Nitrogen 40 mg/dL (7-20) Creatinine 1.1 mg/dL (0.6-1.0) Estimated GFR (Cockcroft-Gault) 48.6 BUN/Creatinine Ratio 36 (6-20) Glucose Level 248 mg/dL (70-99) Calcium Level 8.4 mg/dL (8.5-10.1) Total Bilirubin 1.0 mg/dL (0.2-1.0) Aspartate Amino Transf (AST/SGOT) 23 U/L (15-37) Alanine Aminotransferase (ALT/SGPT) 22 U/L (14-59) Alkaline Phosphatase 192 U/L (46-116) Total Protein 5.7 g/dL (6.4-8.2) Albumin 1.8 g/dL (3.4-5.0) Albumin/Globulin Ratio 0.5 (1.0-1.7) Thyroid Stimulating Hormone (TSH) 0.746 uIU/mL (0.358-3.74) Test 12/17/18 05:00 12/17/18 05:56 12/17/18 08:02 12/17/18 12:04 Magnesium Level 1.6 mg/dL (1.8-2.4) Glucose (Fingerstick) 228 mg/dL (70-99) 238 mg/dL (70-99) 230 mg/dL (70-99) Assessment/Plan Assessment/Plan 1. Original admission for abdominal pain. Prolonged hospitalization for septic shock with emergency surgery as above. Patient gradually and improving. Would continue treatment as per the patient's multiple consultants. 2. One episode of nonsustained ventricular tachycardia. Magnesium was low at 1.6 and has been replaced. We'll continue other medications. Gradually increase activities as tolerated. Echocardiogram to check LV systolic function. Thank you for allowing us to participate in the care of your patient. CARMITA NERI MD Dec 17, 2018 16:39
[2018-12-17 19:00] VITALS: BP 152/72
--- NOTE | 2018-12-17 19:14 | NUR ---
Dressing changed by Dr. Lombardi. Carlos drains were removed. Wound suctioned and Vaseline gauze and 4X4 were placed in wound. 2 packs of 4x4 were used. Covered with ABD and tape. Pt tolerated well.
[2018-12-17] MEDS: FAMOTIDINE 20 MG TABLET. PO SCH (21:40)
[2018-12-17] MEDS: INSULIN GLARGINE 300 UNITS/3 ML INSULN.PEN. SQ SCH (21:44)
[2018-12-17 23:00] VITALS: BP 174/78
[2018-12-18] VITALS (17 sets, daily range): BP systolic 119–169; BP diastolic 59–83
[2018-12-18] MEDS: fentaNYL PF VIAL 100 MCG/2 ML VIAL IV PRN ×3 (00:34→05:57)
[2018-12-18] MEDS: TIGECYCLINE 50 MG in IV DEXTROSE 5% 50 ML IV SCH ×2 (02:44→15:00)
[2018-12-18] MEDS: MORPHINE SULFATE 4 MG/ML VIAL. IV PRN ×6 (06:02→21:19)
[2018-12-18 06:06] LABS: BASO % 0 % (0-3); EOS % 0 % (0-3); LYMPH # 1.9 x10^3/uL (1.0-4.8); LYMPH % 18 % (24-48); MEAN CORPUSCULAR HEMOGLOBIN 29 pg (25-35); MEAN CORPUSCULAR HGB CONC 32 g/dL (31-37); MEAN CORPUSCULAR VOLUME 90 fL (79-100); MONO # 0.8 x10^3/uL (0.0-1.1); MONO % 7 % (0-9); NEUT % 74 % (31-73); PLATELET COUNT 310 x10^3/uL (140-400); RED BLOOD COUNT 3.11 x10^6/uL (3.50-5.40); WHITE BLOOD COUNT 10.8 x10^3/uL (4.0-11.0)
[2018-12-18 06:28] LABS: ALBUMIN 1.6 g/dL (3.4-5.0); ALBUMIN/GLOBULIN RATIO 0.4 (1.0-1.7); CALCIUM 7.9 mg/dL (8.5-10.1); CREATININE 0.9 mg/dL (0.6-1.0); GFR 61.2; MAGNESIUM 1.9 mg/dL (1.8-2.4); POTASSIUM 3.8 mmol/L (3.5-5.1); TOTAL BILIRUBIN 1.1 mg/dL (0.2-1.0); TOTAL PROTEIN 5.4 g/dL (6.4-8.2)
--- NOTE | 2018-12-18 07:54 | PDOC ---
Infectious Disease Note Subjective Subjective Feeling ok + cough Tolerating clear liquids Denies N/V/D/F/C/S/SOA Vital Sign Vital Signs Vital Signs Date Time Temp Pulse Resp B/P (MAP) Pulse Ox O2 Delivery O2 Flow Rate FiO2 12/18/18 06:33 95 Nasal Cannula 2.0 12/18/18 03:00 97.0 109 20 167/80 (109) 97.0 Physical Exam PHYSICAL EXAM GENERAL: Propped up in bed, alert, relaxed appearance HEENT: Oral cavity clear, dentures LUNGS: Decreased breath sounds. nonlabored HEART: S1, S2 with no gallops or murmurs. ABDOMEN: Soft, obese. Bowel sounds present. LLQ wound packed, Carlos. Foul odor and stool present : [place] EXTREMITIES: Trace edema, no cyanosis. Chronic venous stasis changes present. LUE edema, shoulder brace in place NEUROLOGIC: Alert, responds appropriately Port & [facility] clean Labs Lab Laboratory Tests Test 12/17/18 08:02 12/17/18 12:04 12/17/18 17:01 12/17/18 21:04 Glucose (Fingerstick) 238 mg/dL (70-99) 230 mg/dL (70-99) 210 mg/dL (70-99) 184 mg/dL (70-99) Test 12/18/18 05:15 White Blood Count 10.8 x10^3/uL (4.0-11.0) Red Blood Count 3.11 x10^6/uL (3.50-5.40) Hemoglobin 9.0 g/dL (12.0-15.5) Hematocrit 28.0 % (36.0-47.0) Mean Corpuscular Volume 90 fL (79-100) Mean Corpuscular Hemoglobin 29 pg (25-35) Mean Corpuscular Hemoglobin Concent 32 g/dL (31-37) Red Cell Distribution Width 15.0 % (11.5-14.5) Platelet Count 310 x10^3/uL (140-400) Neutrophils (%) (Auto) 74 % (31-73) Lymphocytes (%) (Auto) 18 % (24-48) Monocytes (%) (Auto) 7 % (0-9) Eosinophils (%) (Auto) 0 % (0-3) Basophils (%) (Auto) 0 % (0-3) Neutrophils # (Auto) 8.0 x10^3uL (1.8-7.7) Lymphocytes # (Auto) 1.9 x10^3/uL (1.0-4.8) Monocytes # (Auto) 0.8 x10^3/uL (0.0-1.1) Eosinophils # (Auto) 0.0 x10^3/uL (0.0-0.7) Basophils # (Auto) 0.0 x10^3/uL (0.0-0.2) Sodium Level 141 mmol/L (136-145) Potassium Level 3.8 mmol/L (3.5-5.1) Chloride Level 104 mmol/L (98-107) Carbon Dioxide Level 31 mmol/L (21-32) Anion Gap 6 (6-14) Blood Urea Nitrogen 36 mg/dL (7-20) Creatinine 0.9 mg/dL (0.6-1.0) Estimated GFR (Cockcroft-Gault) 61.2 BUN/Creatinine Ratio 40 (6-20) Glucose Level 172 mg/dL (70-99) Calcium Level 7.9 mg/dL (8.5-10.1) Magnesium Level 1.9 mg/dL (1.8-2.4) Total Bilirubin 1.1 mg/dL (0.2-1.0) Aspartate Amino Transf (AST/SGOT) 23 U/L (15-37) Alanine Aminotransferase (ALT/SGPT) 20 U/L (14-59) Alkaline Phosphatase 187 U/L (46-116) Total Protein 5.4 g/dL (6.4-8.2) Albumin 1.6 g/dL (3.4-5.0) Albumin/Globulin Ratio 0.4 (1.0-1.7) Micro Microbiology 12/12/18 - Final, Complete 12/12/18 - Final, Complete 12/12/18 - Final, Complete 12/12/18 Gram Stain Evaluation - Final, Complete 12/12/18 Sputum Culture - Final, Complete 12/12/18 Sputum Result 1 - Final, Complete 12/12/18 Sputum Result 2 - Final, Complete 12/12/18 Anaerobic/Aerobic Culture, Resulted Pending 12/12/18 Anaerobic Culture Result 1 (MILLY), Resulted Pending 12/12/18 Aerobic Culture - Final, Resulted 12/12/18 Aerobic Culture Result 1 (MILLY) - Final, Resulted 12/12/18 Aerobic Culture Result 2 (MILLY) - Final, Resulted 12/12/18 Antimicrobic Susceptibility - Final, Resulted 12/12/18 Gram Stain - Final, Resulted 12/12/18 Gram Stain Result 1 (MILLY) - Final, Resulted 12/12/18 Gram Stain Result 2 (MILLY) - Final, Resulted Objective Assessment Leukocytosis - better LLQ abdominal 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 Proteus (R cipro, tetra & I Levaquin) and Enterococcus-PCN sensitive. Wound now with foul odor and stool present. Colon mass s/p biopsy, Path showed acute inflammation and granulation tissue consistent with abscess, 12/12. Septic shock, .Source Abdominal wall abscess, improved Acute resp failure postop ;sputum yeast + likely contamination History of multiple allergies Obesity. Diabetes. Right upper extremity peripheral neuropathy. Left upper extremity fracture. Ortho evaluated pt. + swelling - U/S - neg Hyponatremia. Protein-calorie malnutrition, present on admission. Abnormal liver function tests Plan Plan of Care Tigecycline for now Add Micafungin d/c Levaquin Monitor labs wound management per Gen surgery venous US left UE -pending D/w RN Surgeon to be notify of above findings, await follow-up CARMINA HERNANDEZ MD Dec 18, 2018 07:54
--- NOTE | 2018-12-18 08:00 | NUR ---
Abdominal dressing changed, packing not removed. Pt lori well.
[2018-12-18] MEDS: INSULIN LISPRO 300 UNITS/3 ML INSULN.PEN. SQ SCH ×4 (08:01→21:00)
--- NOTE | 2018-12-18 08:18 | RAD ---
Chest radiograph 12/17/2018 6:34 PM INDICATION: Cough COMPARISON: December 13, 2018 TECHNIQUE: Portable upright frontal view of the chest is provided. FINDINGS: The cardiomediastinal silhouette is within normal limits. Right chest wall infusion port catheter is in similar position. Patient has been extubated. Left IJ central venous catheter is in similar position. Bilateral humeral hardware appears similar. There is retrocardiac density which may represent atelectasis versus infiltrate. Aeration of the left lower lobe is worsening of prior examination. There is a new left apical pneumothorax with approximately 39 mm in pleural separation. IMPRESSION: New left side pneumothorax with 39 mm in pleural separation. There is worsened aeration of the left lower lobe suggestive of atelectasis. No significant mediastinal shift is identified. FOR INTERNAL CODING PURPOSES Critical result: Findings discussed with the patient's nurse, Carol, at 12/18/2018 8:12 AM. RESULT CODE: (C) Electronically signed by: Hailee Soria MD (12/18/2018 8:14 AM) [id number]
--- NOTE | 2018-12-18 08:56 | PDOC ---
PULMONARY PROGRESS NOTES Subjective extubated 12/13 afternoon on 02, sob improved, has occ cough, has abd pain Vitals Vital Signs Date Time Temp Pulse Resp B/P (MAP) Pulse Ox O2 Delivery O2 Flow Rate FiO2 12/18/18 08:08 Nasal Cannula 2.0 12/18/18 07:00 98.2 106 18 145/75 (98) 100 98.2 ROS: No Chest Pain General: Alert, No acute distress HEENT: Other (nc at perrl ) Lungs: Crackles Cardiovascular: S1, S2 Abdomen: Soft, Non-tender, Other (obese, wound covered with dressing) Extremities: Other (trace edema) Skin: Warm Labs Laboratory Tests Test 12/16/18 11:46 12/16/18 16:15 12/16/18 20:37 12/17/18 00:07 Glucose (Fingerstick) 247 mg/dL (70-99) 170 mg/dL (70-99) 108 mg/dL (70-99) 182 mg/dL (70-99) Test 12/17/18 04:30 12/17/18 04:39 12/17/18 05:00 12/17/18 05:56 White Blood Count 12.3 x10^3/uL (4.0-11.0) Red Blood Count 3.21 x10^6/uL (3.50-5.40) Hemoglobin 9.1 g/dL (12.0-15.5) Hematocrit 29.0 % (36.0-47.0) Mean Corpuscular Volume 91 fL (79-100) Mean Corpuscular Hemoglobin 29 pg (25-35) Mean Corpuscular Hemoglobin Concent 32 g/dL (31-37) Red Cell Distribution Width 14.8 % (11.5-14.5) Platelet Count 319 x10^3/uL (140-400) Neutrophils (%) (Auto) 80 % (31-73) Lymphocytes (%) (Auto) 13 % (24-48) Monocytes (%) (Auto) 7 % (0-9) Eosinophils (%) (Auto) 0 % (0-3) Basophils (%) (Auto) 0 % (0-3) Neutrophils # (Auto) 9.8 x10^3uL (1.8-7.7) Lymphocytes # (Auto) 1.6 x10^3/uL (1.0-4.8) Monocytes # (Auto) 0.8 x10^3/uL (0.0-1.1) Eosinophils # (Auto) 0.0 x10^3/uL (0.0-0.7) Basophils # (Auto) 0.0 x10^3/uL (0.0-0.2) Sodium Level 143 mmol/L (136-145) Potassium Level 4.1 mmol/L (3.5-5.1) Chloride Level 104 mmol/L (98-107) Carbon Dioxide Level 32 mmol/L (21-32) Anion Gap 7 (6-14) Blood Urea Nitrogen 40 mg/dL (7-20) Creatinine 1.1 mg/dL (0.6-1.0) Estimated GFR (Cockcroft-Gault) 48.6 BUN/Creatinine Ratio 36 (6-20) Glucose Level 248 mg/dL (70-99) Calcium Level 8.4 mg/dL (8.5-10.1) Total Bilirubin 1.0 mg/dL (0.2-1.0) Aspartate Amino Transf (AST/SGOT) 23 U/L (15-37) Alanine Aminotransferase (ALT/SGPT) 22 U/L (14-59) Alkaline Phosphatase 192 U/L (46-116) Total Protein 5.7 g/dL (6.4-8.2) Albumin 1.8 g/dL (3.4-5.0) Albumin/Globulin Ratio 0.5 (1.0-1.7) Thyroid Stimulating Hormone (TSH) 0.746 uIU/mL (0.358-3.74) Glucose (Fingerstick) 202 mg/dL (70-99) 228 mg/dL (70-99) Magnesium Level 1.6 mg/dL (1.8-2.4) Test 12/17/18 08:02 12/17/18 12:04 12/17/18 17:01 12/17/18 21:04 Glucose (Fingerstick) 238 mg/dL (70-99) 230 mg/dL (70-99) 210 mg/dL (70-99) 184 mg/dL (70-99) Test 12/18/18 05:15 White Blood Count 10.8 x10^3/uL (4.0-11.0) Red Blood Count 3.11 x10^6/uL (3.50-5.40) Hemoglobin 9.0 g/dL (12.0-15.5) Hematocrit 28.0 % (36.0-47.0) Mean Corpuscular Volume 90 fL (79-100) Mean Corpuscular Hemoglobin 29 pg (25-35) Mean Corpuscular Hemoglobin Concent 32 g/dL (31-37) Red Cell Distribution Width 15.0 % (11.5-14.5) Platelet Count 310 x10^3/uL (140-400) Neutrophils (%) (Auto) 74 % (31-73) Lymphocytes (%) (Auto) 18 % (24-48) Monocytes (%) (Auto) 7 % (0-9) Eosinophils (%) (Auto) 0 % (0-3) Basophils (%) (Auto) 0 % (0-3) Neutrophils # (Auto) 8.0 x10^3uL (1.8-7.7) Lymphocytes # (Auto) 1.9 x10^3/uL (1.0-4.8) Monocytes # (Auto) 0.8 x10^3/uL (0.0-1.1) Eosinophils # (Auto) 0.0 x10^3/uL (0.0-0.7) Basophils # (Auto) 0.0 x10^3/uL (0.0-0.2) Sodium Level 141 mmol/L (136-145) Potassium Level 3.8 mmol/L (3.5-5.1) Chloride Level 104 mmol/L (98-107) Carbon Dioxide Level 31 mmol/L (21-32) Anion Gap 6 (6-14) Blood Urea Nitrogen 36 mg/dL (7-20) Creatinine 0.9 mg/dL (0.6-1.0) Estimated GFR (Cockcroft-Gault) 61.2 BUN/Creatinine Ratio 40 (6-20) Glucose Level 172 mg/dL (70-99) Calcium Level 7.9 mg/dL (8.5-10.1) Magnesium Level 1.9 mg/dL (1.8-2.4) Total Bilirubin 1.1 mg/dL (0.2-1.0) Aspartate Amino Transf (AST/SGOT) 23 U/L (15-37) Alanine Aminotransferase (ALT/SGPT) 20 U/L (14-59) Alkaline Phosphatase 187 U/L (46-116) Total Protein 5.4 g/dL (6.4-8.2) Albumin 1.6 g/dL (3.4-5.0) Albumin/Globulin Ratio 0.4 (1.0-1.7) Laboratory Tests Test 12/17/18 12:04 12/17/18 17:01 12/17/18 21:04 12/18/18 05:15 Glucose (Fingerstick) 230 mg/dL (70-99) 210 mg/dL (70-99) 184 mg/dL (70-99) White Blood Count 10.8 x10^3/uL (4.0-11.0) Red Blood Count 3.11 x10^6/uL (3.50-5.40) Hemoglobin 9.0 g/dL (12.0-15.5) Hematocrit 28.0 % (36.0-47.0) Mean Corpuscular Volume 90 fL (79-100) Mean Corpuscular Hemoglobin 29 pg (25-35) Mean Corpuscular Hemoglobin Concent 32 g/dL (31-37) Red Cell Distribution Width 15.0 % (11.5-14.5) Platelet Count 310 x10^3/uL (140-400) Neutrophils (%) (Auto) 74 % (31-73) Lymphocytes (%) (Auto) 18 % (24-48) Monocytes (%) (Auto) 7 % (0-9) Eosinophils (%) (Auto) 0 % (0-3) Basophils (%) (Auto) 0 % (0-3) Neutrophils # (Auto) 8.0 x10^3uL (1.8-7.7) Lymphocytes # (Auto) 1.9 x10^3/uL (1.0-4.8) Monocytes # (Auto) 0.8 x10^3/uL (0.0-1.1) Eosinophils # (Auto) 0.0 x10^3/uL (0.0-0.7) Basophils # (Auto) 0.0 x10^3/uL (0.0-0.2) Sodium Level 141 mmol/L (136-145) Potassium Level 3.8 mmol/L (3.5-5.1) Chloride Level 104 mmol/L (98-107) Carbon Dioxide Level 31 mmol/L (21-32) Anion Gap 6 (6-14) Blood Urea Nitrogen 36 mg/dL (7-20) Creatinine 0.9 mg/dL (0.6-1.0) Estimated GFR (Cockcroft-Gault) 61.2 BUN/Creatinine Ratio 40 (6-20) Glucose Level 172 mg/dL (70-99) Calcium Level 7.9 mg/dL (8.5-10.1) Magnesium Level 1.9 mg/dL (1.8-2.4) Total Bilirubin 1.1 mg/dL (0.2-1.0) Aspartate Amino Transf (AST/SGOT) 23 U/L (15-37) Alanine Aminotransferase (ALT/SGPT) 20 U/L (14-59) Alkaline Phosphatase 187 U/L (46-116) Total Protein 5.4 g/dL (6.4-8.2) Albumin 1.6 g/dL (3.4-5.0) Albumin/Globulin Ratio 0.4 (1.0-1.7) Medications Active Scripts Medications Dose Route/Sig Max Daily Dose Days Date Category Potassium Chloride 20 Meq Tablet.er 20 Meq PO TIDWMEALS 12/20/16 Reported Roxicodone (Oxycodone HCl) 5 Mg Tablet 5 Mg PO PRN Q4HRS PRN 12/20/16 Reported Nystatin 1 Each Powder.ea. 1 Each MC BID 12/20/16 Reported Levemir (Insulin Detemir) 100 Unit/1 Ml Vial 20 Unit SQ HS 12/20/16 Reported Novolog (Insulin Aspart) 100 Unit/1 Ml Cartridge 0 SQ QIDACHS 12/20/16 Reported Guaifenesin 600 Mg Tablet.er 600 Mg PO BID 12/20/16 Reported Bisacodyl 10 Mg Supp.rect 10 Mg RC PRN DAILY PRN 12/20/16 Reported Alprazolam 1 Mg Tablet 1 Tab PO TID PRN 12/20/16 Reported Acetaminophen Supp (Acetaminophen) 650 Mg Supp.rect 650 Mg RC PRN Q6HRS PRN 12/20/16 Reported Proair Hfa Inhaler (Albuterol Sulfate) 8.5 Gm Hfa.aer.ad 1 Puff INH PRN Q6HRS PRN 06/22/16 Reported Levothyroxine Sodium 75 Mcg Tablet 1 Tab PO DAILY 04/20/15 Reported Impression . 1. Acute respiratory failure secondary to combination of septic and hypovolemic shock. resolved, extubated 12/13 2. Shock secondary to combination of hypovolemia and septic shock. much improved. 3. 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 4. Acute renal failure with metabolic acidosis, improving. 5. Severe protein-calorie malnutrition. 6. No significant history of tobacco use. 7. Disimpacted left humeral fracture. 8. SPONTANEOUS L PTX Plan . D/W DR GUALLPA AND SHAR WILL HAVE IR PLACE A CHEST TUBE ANTIBX PER ID [id number] CONTINUE SUPPORT DVT AND GI PROPH DEAN LAM MD Dec 18, 2018 08:56
[2018-12-18] MEDS: LACTOBACILLUS RHAMNOSUS GG 1 CAPSULE. PO SCH ×2 (09:00→21:00)
--- NOTE | 2018-12-18 09:18 | PDOC ---
PURVI ESPARZA [employer] 12/18/18 0918: SURGICAL PROGRESS NOTE Subjective d/w ID--to ICU-desensitizing abx plans d/w nurse new left pneumothorax ongoing pain Vital Signs Vital Signs Date Time Temp Pulse Resp B/P (MAP) Pulse Ox O2 Delivery O2 Flow Rate FiO2 12/18/18 08:40 Nasal Cannula 2.0 12/18/18 07:00 98.2 106 18 145/75 (98) 100 98.2 I&O Intake and Output 12/18/18 07:01 Intake Total 200 ml Output Total 750 ml Balance -550 ml Intake Oral 200 ml Output Urine Total 750 ml General: Cooperative, No acute distress Lungs: Other (diminished ) Abdomen: Soft, Other (wound viewed, necrotic edges, sloughing ) Labs Laboratory Tests Test 12/16/18 11:46 12/16/18 16:15 12/16/18 20:37 12/17/18 00:07 Glucose (Fingerstick) 247 mg/dL (70-99) 170 mg/dL (70-99) 108 mg/dL (70-99) 182 mg/dL (70-99) Test 12/17/18 04:30 12/17/18 04:39 12/17/18 05:00 12/17/18 05:56 White Blood Count 12.3 x10^3/uL (4.0-11.0) Red Blood Count 3.21 x10^6/uL (3.50-5.40) Hemoglobin 9.1 g/dL (12.0-15.5) Hematocrit 29.0 % (36.0-47.0) Mean Corpuscular Volume 91 fL (79-100) Mean Corpuscular Hemoglobin 29 pg (25-35) Mean Corpuscular Hemoglobin Concent 32 g/dL (31-37) Red Cell Distribution Width 14.8 % (11.5-14.5) Platelet Count 319 x10^3/uL (140-400) Neutrophils (%) (Auto) 80 % (31-73) Lymphocytes (%) (Auto) 13 % (24-48) Monocytes (%) (Auto) 7 % (0-9) Eosinophils (%) (Auto) 0 % (0-3) Basophils (%) (Auto) 0 % (0-3) Neutrophils # (Auto) 9.8 x10^3uL (1.8-7.7) Lymphocytes # (Auto) 1.6 x10^3/uL (1.0-4.8) Monocytes # (Auto) 0.8 x10^3/uL (0.0-1.1) Eosinophils # (Auto) 0.0 x10^3/uL (0.0-0.7) Basophils # (Auto) 0.0 x10^3/uL (0.0-0.2) Sodium Level 143 mmol/L (136-145) Potassium Level 4.1 mmol/L (3.5-5.1) Chloride Level 104 mmol/L (98-107) Carbon Dioxide Level 32 mmol/L (21-32) Anion Gap 7 (6-14) Blood Urea Nitrogen 40 mg/dL (7-20) Creatinine 1.1 mg/dL (0.6-1.0) Estimated GFR (Cockcroft-Gault) 48.6 BUN/Creatinine Ratio 36 (6-20) Glucose Level 248 mg/dL (70-99) Calcium Level 8.4 mg/dL (8.5-10.1) Total Bilirubin 1.0 mg/dL (0.2-1.0) Aspartate Amino Transf (AST/SGOT) 23 U/L (15-37) Alanine Aminotransferase (ALT/SGPT) 22 U/L (14-59) Alkaline Phosphatase 192 U/L (46-116) Total Protein 5.7 g/dL (6.4-8.2) Albumin 1.8 g/dL (3.4-5.0) Albumin/Globulin Ratio 0.5 (1.0-1.7) Thyroid Stimulating Hormone (TSH) 0.746 uIU/mL (0.358-3.74) Glucose (Fingerstick) 202 mg/dL (70-99) 228 mg/dL (70-99) Magnesium Level 1.6 mg/dL (1.8-2.4) Test 12/17/18 08:02 12/17/18 12:04 12/17/18 17:01 12/17/18 21:04 Glucose (Fingerstick) 238 mg/dL (70-99) 230 mg/dL (70-99) 210 mg/dL (70-99) 184 mg/dL (70-99) Test 12/18/18 05:15 White Blood Count 10.8 x10^3/uL (4.0-11.0) Red Blood Count 3.11 x10^6/uL (3.50-5.40) Hemoglobin 9.0 g/dL (12.0-15.5) Hematocrit 28.0 % (36.0-47.0) Mean Corpuscular Volume 90 fL (79-100) Mean Corpuscular Hemoglobin 29 pg (25-35) Mean Corpuscular Hemoglobin Concent 32 g/dL (31-37) Red Cell Distribution Width 15.0 % (11.5-14.5) Platelet Count 310 x10^3/uL (140-400) Neutrophils (%) (Auto) 74 % (31-73) Lymphocytes (%) (Auto) 18 % (24-48) Monocytes (%) (Auto) 7 % (0-9) Eosinophils (%) (Auto) 0 % (0-3) Basophils (%) (Auto) 0 % (0-3) Neutrophils # (Auto) 8.0 x10^3uL (1.8-7.7) Lymphocytes # (Auto) 1.9 x10^3/uL (1.0-4.8) Monocytes # (Auto) 0.8 x10^3/uL (0.0-1.1) Eosinophils # (Auto) 0.0 x10^3/uL (0.0-0.7) Basophils # (Auto) 0.0 x10^3/uL (0.0-0.2) Sodium Level 141 mmol/L (136-145) Potassium Level 3.8 mmol/L (3.5-5.1) Chloride Level 104 mmol/L (98-107) Carbon Dioxide Level 31 mmol/L (21-32) Anion Gap 6 (6-14) Blood Urea Nitrogen 36 mg/dL (7-20) Creatinine 0.9 mg/dL (0.6-1.0) Estimated GFR (Cockcroft-Gault) 61.2 BUN/Creatinine Ratio 40 (6-20) Glucose Level 172 mg/dL (70-99) Calcium Level 7.9 mg/dL (8.5-10.1) Magnesium Level 1.9 mg/dL (1.8-2.4) Total Bilirubin 1.1 mg/dL (0.2-1.0) Aspartate Amino Transf (AST/SGOT) 23 U/L (15-37) Alanine Aminotransferase (ALT/SGPT) 20 U/L (14-59) Alkaline Phosphatase 187 U/L (46-116) Total Protein 5.4 g/dL (6.4-8.2) Albumin 1.6 g/dL (3.4-5.0) Albumin/Globulin Ratio 0.4 (1.0-1.7) Laboratory Tests Test 12/17/18 12:04 12/17/18 17:01 12/17/18 21:04 12/18/18 05:15 Glucose (Fingerstick) 230 mg/dL (70-99) 210 mg/dL (70-99) 184 mg/dL (70-99) White Blood Count 10.8 x10^3/uL (4.0-11.0) Red Blood Count 3.11 x10^6/uL (3.50-5.40) Hemoglobin 9.0 g/dL (12.0-15.5) Hematocrit 28.0 % (36.0-47.0) Mean Corpuscular Volume 90 fL (79-100) Mean Corpuscular Hemoglobin 29 pg (25-35) Mean Corpuscular Hemoglobin Concent 32 g/dL (31-37) Red Cell Distribution Width 15.0 % (11.5-14.5) Platelet Count 310 x10^3/uL (140-400) Neutrophils (%) (Auto) 74 % (31-73) Lymphocytes (%) (Auto) 18 % (24-48) Monocytes (%) (Auto) 7 % (0-9) Eosinophils (%) (Auto) 0 % (0-3) Basophils (%) (Auto) 0 % (0-3) Neutrophils # (Auto) 8.0 x10^3uL (1.8-7.7) Lymphocytes # (Auto) 1.9 x10^3/uL (1.0-4.8) Monocytes # (Auto) 0.8 x10^3/uL (0.0-1.1) Eosinophils # (Auto) 0.0 x10^3/uL (0.0-0.7) Basophils # (Auto) 0.0 x10^3/uL (0.0-0.2) Sodium Level 141 mmol/L (136-145) Potassium Level 3.8 mmol/L (3.5-5.1) Chloride Level 104 mmol/L (98-107) Carbon Dioxide Level 31 mmol/L (21-32) Anion Gap 6 (6-14) Blood Urea Nitrogen 36 mg/dL (7-20) Creatinine 0.9 mg/dL (0.6-1.0) Estimated GFR (Cockcroft-Gault) 61.2 BUN/Creatinine Ratio 40 (6-20) Glucose Level 172 mg/dL (70-99) Calcium Level 7.9 mg/dL (8.5-10.1) Magnesium Level 1.9 mg/dL (1.8-2.4) Total Bilirubin 1.1 mg/dL (0.2-1.0) Aspartate Amino Transf (AST/SGOT) 23 U/L (15-37) Alanine Aminotransferase (ALT/SGPT) 20 U/L (14-59) Alkaline Phosphatase 187 U/L (46-116) Total Protein 5.4 g/dL (6.4-8.2) Albumin 1.6 g/dL (3.4-5.0) Albumin/Globulin Ratio 0.4 (1.0-1.7) Problem List continue wound care will have Dr Harjit FLOYD today RIGO GUALLPA MD 12/18/18 1806: SURGICAL PROGRESS NOTE Assessment/Plan pt seen here questions answered overall status (sepsis, renal function, WBC) improved continue wound care PURVI ESPARZA APRN Dec 18, 2018 09:18 RIGO GUALLPA MD Dec 18, 2018 18:06
--- NOTE | 2018-12-18 09:20 | PDOC ---
Infectious Disease Note Subjective Subjective Feeling a little rough occ + cough Denies N/V/D/F/C/S/SOA Vital Sign Vital Signs Vital Signs Date Time Temp Pulse Resp B/P (MAP) Pulse Ox O2 Delivery O2 Flow Rate FiO2 12/18/18 08:08 Nasal Cannula 2.0 12/18/18 07:00 98.2 106 18 145/75 (98) 100 98.2 Physical Exam PHYSICAL EXAM GENERAL: Propped up in bed, alert, relaxed appearance HEENT: Oral cavity clear, dentures LUNGS: Decreased breath sounds. nonlabored HEART: S1, S2 with no gallops or murmurs. ABDOMEN: Soft, obese. Bowel sounds present. LLQ wound packed, Sesser. : [place] EXTREMITIES: Trace edema, no cyanosis. Chronic venous stasis changes present. LUE edema, shoulder brace in place NEUROLOGIC: Alert, responds appropriately Port & LIJ clean Labs Lab Laboratory Tests Test 12/17/18 12:04 12/17/18 17:01 12/17/18 21:04 12/18/18 05:15 Glucose (Fingerstick) 230 mg/dL (70-99) 210 mg/dL (70-99) 184 mg/dL (70-99) White Blood Count 10.8 x10^3/uL (4.0-11.0) Red Blood Count 3.11 x10^6/uL (3.50-5.40) Hemoglobin 9.0 g/dL (12.0-15.5) Hematocrit 28.0 % (36.0-47.0) Mean Corpuscular Volume 90 fL (79-100) Mean Corpuscular Hemoglobin 29 pg (25-35) Mean Corpuscular Hemoglobin Concent 32 g/dL (31-37) Red Cell Distribution Width 15.0 % (11.5-14.5) Platelet Count 310 x10^3/uL (140-400) Neutrophils (%) (Auto) 74 % (31-73) Lymphocytes (%) (Auto) 18 % (24-48) Monocytes (%) (Auto) 7 % (0-9) Eosinophils (%) (Auto) 0 % (0-3) Basophils (%) (Auto) 0 % (0-3) Neutrophils # (Auto) 8.0 x10^3uL (1.8-7.7) Lymphocytes # (Auto) 1.9 x10^3/uL (1.0-4.8) Monocytes # (Auto) 0.8 x10^3/uL (0.0-1.1) Eosinophils # (Auto) 0.0 x10^3/uL (0.0-0.7) Basophils # (Auto) 0.0 x10^3/uL (0.0-0.2) Sodium Level 141 mmol/L (136-145) Potassium Level 3.8 mmol/L (3.5-5.1) Chloride Level 104 mmol/L (98-107) Carbon Dioxide Level 31 mmol/L (21-32) Anion Gap 6 (6-14) Blood Urea Nitrogen 36 mg/dL (7-20) Creatinine 0.9 mg/dL (0.6-1.0) Estimated GFR (Cockcroft-Gault) 61.2 BUN/Creatinine Ratio 40 (6-20) Glucose Level 172 mg/dL (70-99) Calcium Level 7.9 mg/dL (8.5-10.1) Magnesium Level 1.9 mg/dL (1.8-2.4) Total Bilirubin 1.1 mg/dL (0.2-1.0) Aspartate Amino Transf (AST/SGOT) 23 U/L (15-37) Alanine Aminotransferase (ALT/SGPT) 20 U/L (14-59) Alkaline Phosphatase 187 U/L (46-116) Total Protein 5.4 g/dL (6.4-8.2) Albumin 1.6 g/dL (3.4-5.0) Albumin/Globulin Ratio 0.4 (1.0-1.7) Micro Microbiology 12/12/18 - Final, Complete 12/12/18 - Final, Complete 12/12/18 - Final, Complete 12/12/18 Gram Stain Evaluation - Final, Complete 12/12/18 Sputum Culture - Final, Complete 12/12/18 Sputum Result 1 - Final, Complete 12/12/18 Sputum Result 2 - Final, Complete 12/12/18 Anaerobic/Aerobic Culture, Resulted Pending 12/12/18 Anaerobic Culture Result 1 (MILLY), Resulted Pending 12/12/18 Aerobic Culture - Final, Resulted 12/12/18 Aerobic Culture Result 1 (MILLY) - Final, Resulted 12/12/18 Aerobic Culture Result 2 (MILLY) - Final, Resulted 12/12/18 Antimicrobic Susceptibility - Final, Resulted 12/12/18 Gram Stain - Final, Resulted 12/12/18 Gram Stain Result 1 (MILLY) - Final, Resulted 12/12/18 Gram Stain Result 2 (MILLY) - Final, Resulted Objective Assessment Leukocytosis - better Pneumothorax -left LLQ abdominal 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 Proteus (R cipro, tetra & I Levaquin) and Enterococcus-PCN sensitive. Nursing reports Dr. Lombardi removed 750 ml of stool from abd wound 12/17. Colon mass s/p biopsy, Path showed acute inflammation and granulation tissue consistent with abscess, 12/12. Septic shock, .Source Abdominal wall abscess, improved Acute resp failure postop ;sputum yeast + likely contamination History of multiple allergies Obesity. Diabetes. Right upper extremity peripheral neuropathy. Left upper extremity fracture. Ortho evaluated pt. + swelling - U/S - neg Hyponatremia. Protein-calorie malnutrition, present on admission. Abnormal liver function tests Plan Plan of Care Tigecycline for now Added Micafungin 12/17 d/c Levaquin with VT. Avoid Gent with Recent renal failure Depsite AF and nml WBC - Given pneumothorax/removal of stool from wound and abx allergies - feel she should transfer to ICU and be desensitized to Zosyn Monitor labs wound management per Gen surgery venous US left UE -pending D/w RN D/w surgery Cara/Nursing supervisor fiber locking/Pharmacy and - discussed risks of serious reactions a possibility if she is truly allergic but only reports a rash in the past but also he said she had a rash with tetracycline and she is tolerating Tigecycline CARMINA HERNANDEZ MD Dec 18, 2018 09:20
[2018-12-18] MEDS ORDERED: PIPERACILLIN/TAZOBACTAM 3.375 GM in IV NORMAL SALINE 100ML 100 ML IV ONE (09:45)
[2018-12-18] MEDS ORDERED: TAZOBACTAM IV ONE ×2 (10:00)
[2018-12-18] MEDS ORDERED: PIPERACILLIN IV ONE ×2 (10:00)
[2018-12-18] MEDS ORDERED: DEXTROSE 5% IV ONE ×2 (10:00)
[2018-12-18] MEDS: NYSTATIN TOPICAL POWDER 15GM BOTTLE. TP SCH ×2 (10:01→21:49)
[2018-12-18] MEDS: IV 1/2 NORMAL SALINE 1,000 ML IV SCH (10:07)
--- NOTE | 2018-12-18 11:30 | NUR ---
08 - Radiologist called to report critical results for CXR taken yesterday, new left sided pneumothorax with 39 mm pleural separation. By 08, Dr Mcclain, Buster and Dane had been informed of this. Orders received from Dr Vela to transfer Pt to ICU for antibiotic desensitization. Orders received from Dr Goins for a chest tube placement, IR contacted. Pt has been NPO since midnight. Pt transferred to ICU room 109 at 1130, report given to ADRYAN Weber. Pt's spouse present at bedside and informed of all the above.
--- NOTE | 2018-12-18 11:42 | PDOC ---
PROGRESS NOTES Chief Complaint Chief Complaint LLQ abscess, colocutaneous fistula with perforation morbid obesity, BMI 60 diabetes 2 JACOB, NOS Septic shock on admit, better weakness and debilty acute on chronic pain, fibromyalgia pneumothorax New left side pneumothorax with 39 mm in pleural separation. There is worsened aeration of the left lower lobe suggestive of atelectasis Pre-Op Diagnosis Spontaneous left pneumothorax Post-Op Diagnosis same Procedure Performed CT chest tube Surgeon Li Anesthesia Type: Local, Conscious Sedation Findings 10F chest tube History of Present Illness History of Present Illness SNF resident s/p left arm injyr, transferred from [facility] 2/2 septic shock from left-sided abdominal wound. s/p surg, was admitted to ICU had shock, now improved, tired and weak. PO intake not very much, pain with buttock wounds, very painful, dislikes being changed or moved labs better cont current pain managment, looks lethargic to me now ID on board - tigecycline + levaquin Vitals Vitals Vital Signs Date Time Temp Pulse Resp B/P (MAP) Pulse Ox O2 Delivery O2 Flow Rate FiO2 12/18/18 10:10 Nasal Cannula 2.0 12/18/18 07:00 98.2 106 18 145/75 (98) 100 98.2 Physical Exam Physical Exam GENERAL: Propped up in bed, alert, relaxed appearance HEENT: Oral cavity clear, dentures LUNGS: Decreased breath sounds. nonlabored HEART: S1, S2 with no gallops or murmurs. ABDOMEN: Soft, obese. Bowel sounds present. LLQ wound packed, Carlos. : Brasher EXTREMITIES: Trace edema, no cyanosis. Chronic venous stasis changes present. LUE edema, shoulder brace in place NEUROLOGIC: Alert, responds appropriately Port & LIJ clean General: Alert, Oriented X3, Cooperative, No acute distress Heart: Regular rate Lungs: Crackles Abdomen: Normal bowel sounds, Soft, Other (wound viewed, necrotic edges, sloughing ) Extremities: No clubbing, Normal pulses Skin: No significant lesion, Other (dressing in place, drain in place) Labs LABS Chest radiograph 12/17/2018 6:34 PM INDICATION: Cough COMPARISON: December 13, 2018 TECHNIQUE: Portable upright frontal view of the chest is provided. FINDINGS: The cardiomediastinal silhouette is within normal limits. Right chest wall infusion port catheter is in similar position. Patient has been extubated. Left IJ central venous catheter is in similar position. Bilateral humeral hardware appears similar. There is retrocardiac density which may represent atelectasis versus infiltrate. Aeration of the left lower lobe is worsening of prior examination. There is a new left apical pneumothorax with approximately 39 mm in pleural separation. IMPRESSION: New left side pneumothorax with 39 mm in pleural separation. There is worsened aeration of the left lower lobe suggestive of atelectasis. No significant mediastinal shift is identified. Laboratory Tests Test 12/17/18 12:04 12/17/18 17:01 12/17/18 21:04 12/18/18 05:15 Glucose (Fingerstick) 230 mg/dL (70-99) 210 mg/dL (70-99) 184 mg/dL (70-99) White Blood Count 10.8 x10^3/uL (4.0-11.0) Red Blood Count 3.11 x10^6/uL (3.50-5.40) Hemoglobin 9.0 g/dL (12.0-15.5) Hematocrit 28.0 % (36.0-47.0) Mean Corpuscular Volume 90 fL (79-100) Mean Corpuscular Hemoglobin 29 pg (25-35) Mean Corpuscular Hemoglobin Concent 32 g/dL (31-37) Red Cell Distribution Width 15.0 % (11.5-14.5) Platelet Count 310 x10^3/uL (140-400) Neutrophils (%) (Auto) 74 % (31-73) Lymphocytes (%) (Auto) 18 % (24-48) Monocytes (%) (Auto) 7 % (0-9) Eosinophils (%) (Auto) 0 % (0-3) Basophils (%) (Auto) 0 % (0-3) Neutrophils # (Auto) 8.0 x10^3uL (1.8-7.7) Lymphocytes # (Auto) 1.9 x10^3/uL (1.0-4.8) Monocytes # (Auto) 0.8 x10^3/uL (0.0-1.1) Eosinophils # (Auto) 0.0 x10^3/uL (0.0-0.7) Basophils # (Auto) 0.0 x10^3/uL (0.0-0.2) Sodium Level 141 mmol/L (136-145) Potassium Level 3.8 mmol/L (3.5-5.1) Chloride Level 104 mmol/L (98-107) Carbon Dioxide Level 31 mmol/L (21-32) Anion Gap 6 (6-14) Blood Urea Nitrogen 36 mg/dL (7-20) Creatinine 0.9 mg/dL (0.6-1.0) Estimated GFR (Cockcroft-Gault) 61.2 BUN/Creatinine Ratio 40 (6-20) Glucose Level 172 mg/dL (70-99) Calcium Level 7.9 mg/dL (8.5-10.1) Magnesium Level 1.9 mg/dL (1.8-2.4) Total Bilirubin 1.1 mg/dL (0.2-1.0) Aspartate Amino Transf (AST/SGOT) 23 U/L (15-37) Alanine Aminotransferase (ALT/SGPT) 20 U/L (14-59) Alkaline Phosphatase 187 U/L (46-116) Total Protein 5.4 g/dL (6.4-8.2) Albumin 1.6 g/dL (3.4-5.0) Albumin/Globulin Ratio 0.4 (1.0-1.7) Test 12/18/18 07:57 Glucose (Fingerstick) 151 mg/dL (70-99) Assessment and Plan Assessmemt and Plan Indication:Abscess with bowel drainage TECHNIQUE: CT abdomen and pelvis with IV contrast with multiplanar reformats. COMPARISON: None FINDINGS: Heart is normal in size. No pericardial or pleural effusion. Clear lung bases. Liver, spleen, adrenals within normal limits. Pancreas hilar surgically absent or with diffuse fatty atrophy. No nephrolithiasis or hydronephrosis. No enlarged retroperitoneal or pelvic adenopathy. No free pelvic fluid or ascites. Layering gallstones. No pericholecystic inflammatory changes. Partial gastrectomy changes. No bowel obstruction. Left lateral lower abdominal wall hernia is seen with neck of the hernia measuring 5.5 cm with herniation of the focal loop of descending colon. Complex fluid and pockets of air is seen in the hernia sac which is partially imaged due to patient's body habitus. Left lower quadrant ostomy versus another descending colon containing hernia with neck of the hernia measuring 3.4 cm. Large amount of anterolateral abdominal wall emphysema. Urinary bladder is decompressed with Brasher catheter. Status post hysterectomy. No pneumoperitoneum. Mild compression deformity seen of the T10 and L2 vertebral body with no retropulsion the spinal canal. IMPRESSION: Suboptimal evaluation of the left lateral abdominal wall hernia pocket secondary to it being not included in the [id number] due to body habitus. 1. Left lateral lower abdominal wall hernia containing focal loop of descending colon with complex fluid collection in the hernia sac with large amount of emphysema suggesting abscess. 2. Left anterolateral ostomy versus another focal loop of descending colon containing hernia. 3. Mild T10 and L2 compression deformity with no rectal bulge in the spinal canal. 4. Cholelithiasis without imaging evidence of acute cholecystitis. Electronically signed by: Mp Cordero DO (12/12/2018 1:27 PM) [id number] Comment Review of Relevant I have reviewed the following items leif (where applicable) has been applied. Labs Laboratory Tests Test 12/16/18 11:46 12/16/18 16:15 12/16/18 20:37 12/17/18 00:07 Glucose (Fingerstick) 247 mg/dL (70-99) 170 mg/dL (70-99) 108 mg/dL (70-99) 182 mg/dL (70-99) Test 12/17/18 04:30 12/17/18 04:39 12/17/18 05:00 12/17/18 05:56 White Blood Count 12.3 x10^3/uL (4.0-11.0) Red Blood Count 3.21 x10^6/uL (3.50-5.40) Hemoglobin 9.1 g/dL (12.0-15.5) Hematocrit 29.0 % (36.0-47.0) Mean Corpuscular Volume 91 fL (79-100) Mean Corpuscular Hemoglobin 29 pg (25-35) Mean Corpuscular Hemoglobin Concent 32 g/dL (31-37) Red Cell Distribution Width 14.8 % (11.5-14.5) Platelet Count 319 x10^3/uL (140-400) Neutrophils (%) (Auto) 80 % (31-73) Lymphocytes (%) (Auto) 13 % (24-48) Monocytes (%) (Auto) 7 % (0-9) Eosinophils (%) (Auto) 0 % (0-3) Basophils (%) (Auto) 0 % (0-3) Neutrophils # (Auto) 9.8 x10^3uL (1.8-7.7) Lymphocytes # (Auto) 1.6 x10^3/uL (1.0-4.8) Monocytes # (Auto) 0.8 x10^3/uL (0.0-1.1) Eosinophils # (Auto) 0.0 x10^3/uL (0.0-0.7) Basophils # (Auto) 0.0 x10^3/uL (0.0-0.2) Sodium Level 143 mmol/L (136-145) Potassium Level 4.1 mmol/L (3.5-5.1) Chloride Level 104 mmol/L (98-107) Carbon Dioxide Level 32 mmol/L (21-32) Anion Gap 7 (6-14) Blood Urea Nitrogen 40 mg/dL (7-20) Creatinine 1.1 mg/dL (0.6-1.0) Estimated GFR (Cockcroft-Gault) 48.6 BUN/Creatinine Ratio 36 (6-20) Glucose Level 248 mg/dL (70-99) Calcium Level 8.4 mg/dL (8.5-10.1) Total Bilirubin 1.0 mg/dL (0.2-1.0) Aspartate Amino Transf (AST/SGOT) 23 U/L (15-37) Alanine Aminotransferase (ALT/SGPT) 22 U/L (14-59) Alkaline Phosphatase 192 U/L (46-116) Total Protein 5.7 g/dL (6.4-8.2) Albumin 1.8 g/dL (3.4-5.0) Albumin/Globulin Ratio 0.5 (1.0-1.7) Thyroid Stimulating Hormone (TSH) 0.746 uIU/mL (0.358-3.74) Glucose (Fingerstick) 202 mg/dL (70-99) 228 mg/dL (70-99) Magnesium Level 1.6 mg/dL (1.8-2.4) Test 12/17/18 08:02 12/17/18 12:04 12/17/18 17:01 12/17/18 21:04 Glucose (Fingerstick) 238 mg/dL (70-99) 230 mg/dL (70-99) 210 mg/dL (70-99) 184 mg/dL (70-99) Test 12/18/18 05:15 12/18/18 07:57 White Blood Count 10.8 x10^3/uL (4.0-11.0) Red Blood Count 3.11 x10^6/uL (3.50-5.40) Hemoglobin 9.0 g/dL (12.0-15.5) Hematocrit 28.0 % (36.0-47.0) Mean Corpuscular Volume 90 fL (79-100) Mean Corpuscular Hemoglobin 29 pg (25-35) Mean Corpuscular Hemoglobin Concent 32 g/dL (31-37) Red Cell Distribution Width 15.0 % (11.5-14.5) Platelet Count 310 x10^3/uL (140-400) Neutrophils (%) (Auto) 74 % (31-73) Lymphocytes (%) (Auto) 18 % (24-48) Monocytes (%) (Auto) 7 % (0-9) Eosinophils (%) (Auto) 0 % (0-3) Basophils (%) (Auto) 0 % (0-3) Neutrophils # (Auto) 8.0 x10^3uL (1.8-7.7) Lymphocytes # (Auto) 1.9 x10^3/uL (1.0-4.8) Monocytes # (Auto) 0.8 x10^3/uL (0.0-1.1) Eosinophils # (Auto) 0.0 x10^3/uL (0.0-0.7) Basophils # (Auto) 0.0 x10^3/uL (0.0-0.2) Sodium Level 141 mmol/L (136-145) Potassium Level 3.8 mmol/L (3.5-5.1) Chloride Level 104 mmol/L (98-107) Carbon Dioxide Level 31 mmol/L (21-32) Anion Gap 6 (6-14) Blood Urea Nitrogen 36 mg/dL (7-20) Creatinine 0.9 mg/dL (0.6-1.0) Estimated GFR (Cockcroft-Gault) 61.2 BUN/Creatinine Ratio 40 (6-20) Glucose Level 172 mg/dL (70-99) Calcium Level 7.9 mg/dL (8.5-10.1) Magnesium Level 1.9 mg/dL (1.8-2.4) Total Bilirubin 1.1 mg/dL (0.2-1.0) Aspartate Amino Transf (AST/SGOT) 23 U/L (15-37) Alanine Aminotransferase (ALT/SGPT) 20 U/L (14-59) Alkaline Phosphatase 187 U/L (46-116) Total Protein 5.4 g/dL (6.4-8.2) Albumin 1.6 g/dL (3.4-5.0) Albumin/Globulin Ratio 0.4 (1.0-1.7) Glucose (Fingerstick) 151 mg/dL (70-99) Laboratory Tests Test 12/17/18 12:04 12/17/18 17:01 12/17/18 21:04 12/18/18 05:15 Glucose (Fingerstick) 230 mg/dL (70-99) 210 mg/dL (70-99) 184 mg/dL (70-99) White Blood Count 10.8 x10^3/uL (4.0-11.0) Red Blood Count 3.11 x10^6/uL (3.50-5.40) Hemoglobin 9.0 g/dL (12.0-15.5) Hematocrit 28.0 % (36.0-47.0) Mean Corpuscular Volume 90 fL (79-100) Mean Corpuscular Hemoglobin 29 pg (25-35) Mean Corpuscular Hemoglobin Concent 32 g/dL (31-37) Red Cell Distribution Width 15.0 % (11.5-14.5) Platelet Count 310 x10^3/uL (140-400) Neutrophils (%) (Auto) 74 % (31-73) Lymphocytes (%) (Auto) 18 % (24-48) Monocytes (%) (Auto) 7 % (0-9) Eosinophils (%) (Auto) 0 % (0-3) Basophils (%) (Auto) 0 % (0-3) Neutrophils # (Auto) 8.0 x10^3uL (1.8-7.7) Lymphocytes # (Auto) 1.9 x10^3/uL (1.0-4.8) Monocytes # (Auto) 0.8 x10^3/uL (0.0-1.1) Eosinophils # (Auto) 0.0 x10^3/uL (0.0-0.7) Basophils # (Auto) 0.0 x10^3/uL (0.0-0.2) Sodium Level 141 mmol/L (136-145) Potassium Level 3.8 mmol/L (3.5-5.1) Chloride Level 104 mmol/L (98-107) Carbon Dioxide Level 31 mmol/L (21-32) Anion Gap 6 (6-14) Blood Urea Nitrogen 36 mg/dL (7-20) Creatinine 0.9 mg/dL (0.6-1.0) Estimated GFR (Cockcroft-Gault) 61.2 BUN/Creatinine Ratio 40 (6-20) Glucose Level 172 mg/dL (70-99) Calcium Level 7.9 mg/dL (8.5-10.1) Magnesium Level 1.9 mg/dL (1.8-2.4) Total Bilirubin 1.1 mg/dL (0.2-1.0) Aspartate Amino Transf (AST/SGOT) 23 U/L (15-37) Alanine Aminotransferase (ALT/SGPT) 20 U/L (14-59) Alkaline Phosphatase 187 U/L (46-116) Total Protein 5.4 g/dL (6.4-8.2) Albumin 1.6 g/dL (3.4-5.0) Albumin/Globulin Ratio 0.4 (1.0-1.7) Test 12/18/18 07:57 Glucose (Fingerstick) 151 mg/dL (70-99) Microbiology 12/12/18 - Final, Complete 12/12/18 - Final, Complete 12/12/18 - Final, Complete 12/12/18 Gram Stain Evaluation - Final, Complete 12/12/18 Sputum Culture - Final, Complete 12/12/18 Sputum Result 1 - Final, Complete 12/12/18 Sputum Result 2 - Final, Complete 12/12/18 Anaerobic/Aerobic Culture, Resulted Pending 12/12/18 Anaerobic Culture Result 1 (MILLY), Resulted Pending 12/12/18 Aerobic Culture - Final, Resulted 12/12/18 Aerobic Culture Result 1 (MILLY) - Final, Resulted 12/12/18 Aerobic Culture Result 2 (MILLY) - Final, Resulted 12/12/18 Antimicrobic Susceptibility - Final, Resulted 12/12/18 Gram Stain - Final, Resulted 12/12/18 Gram Stain Result 1 (MILLY) - Final, Resulted 12/12/18 Gram Stain Result 2 (MILLY) - Final, Resulted Medications Current Medications Ondansetron HCl (Zofran) 4 mg PRN Q6HRS PRN IV NAUSEA/VOMITING; Start 12/12/18 at 12:15; Stop 12/13/18 at 10:37; Status DC Prochlorperazine Edisylate (Compazine) 10 mg PRN Q6HRS PRN IV NAUSEA/VOMITING, 2ND CHOICE; Start 12/12/18 at 12:15 Prochlorperazine (Compazine) 25 mg PRN Q12HR PRN SC NAUSEA/VOMITING; Start at 12:15 Al Hydroxide/Mg Hydroxide (Mylanta Plus Xs) 30 ml PRN Q3HRS PRN PO HEARTBURN / GAS; Start 12/12/18 at 12:15 Calcium Carbonate/ Glycine (Tums) 500 mg PRN Q3HRS PRN PO UPSET STOMACH; Start 12/12/18 at 12:15 Zolpidem Tartrate (Ambien) 5 mg PRN QHS PRN PO INSOMNIA, MAY REPEAT IN 1HR; Start 12/12/18 at 12:15 Oxycodone HCl (Roxicodone) 5 mg PRN Q3HRS PRN PO BREAKTHROUGH PAIN Last administered on 12/17/18at 21:40; Start 12/12/18 at 12:15 Morphine Sulfate (Morphine Sulfate) 2 mg PRN Q2HR PRN IV MILD PAIN Last administered on 12/18/18at 10:10; Start 12/12/18 at 12:15 Acetaminophen (Tylenol) 650 mg PRN Q6HRS PRN PO Headaches, Temp > 101.5F; Start 12/12/18 at 12:15 Magnesium Hydroxide (Milk Of Magnesia) 2,400 mg PRN Q12HR PRN PO CONSTIPATION; Start 12/12/18 at 12:15 Bisacodyl (Dulcolax Supp) 10 mg PRN DAILY PRN SC CONSTIPATION; Start 12/12/18 at 12:15; Stop 12/12/18 at 12:26; Status DC Enoxaparin Sodium (Lovenox 40mg Syringe) 40 mg Q24H SQ ; Start 12/12/18 at 13:00 ; Stop 12/12/18 at 13:00; Status DC Sodium Chloride 1,000 ml @ 100 mls/hr Q10H IV Last administered on 12/13/18at 08:42; Start 12/12/18 at 12:15; Stop 12/13/18 at 11:01; Status DC Famotidine (Pepcid Vial) 20 mg QHS IVP Last administered on 12/15/18at 21:09; Start 12/12/18 at 21:00; Stop 12/16/18 at 15:32; Status DC Acetaminophen (Tylenol Supp) 650 mg PRN Q6HRS PRN RC FEVER; Start 12/12/18 at 12:30 Albuterol Sulfate (Ventolin Neb Soln) 2.5 mg PRN Q6HRS PRN INH SHORTNESS OF BREATH Last administered on 12/15/18at 04:17; Start 12/12/18 at 12:30 Bisacodyl (Dulcolax Supp) 10 mg PRN DAILY PRN RC CONSTIPATION; Start 12/12/18 at 12:30 Insulin Glargine (Lantus) 20 units QHS SQ ; Start 12/12/18 at 21:00; Stop at 21:00; Status DC Nystatin (Nystop) 1 ada BID TP Last administered on 12/18/18at 10:01; Start at 13:00 Norepinephrine Bitartrate 250 ml @ 1.875 mls/ hr CONT PRN IV SEE I/O RECORD Last administered on 12/12/18at 18:17; Start 12/12/18 at 12:45; Stop 12/12/18 at 12:45; Status DC Norepinephrine Bitartrate 250 ml @ 1.875 mls/ hr CONT PRN IV SEE I/O RECORD; Start 12/12/18 at 12:30; Status Cancel Levofloxacin/ Dextrose (Levaquin Per Pharmacy) 1 each PRN DAILY PRN MC SEE COMMENTS; Start 12/12/18 at 12:30; Stop 12/16/18 at 13:54; Status DC Metronidazole 100 ml @ 100 mls/hr Q8HRS IV Last administered on 12/13/18at 05: 53; Start 12/12/18 at 14:00; Stop 12/13/18 at 11:32; Status DC Insulin Glargine (Lantus) 10 units QHS SQ Last administered on 12/12/18at 22:11 ; Start 12/12/18 at 21:00; Stop 12/13/18 at 20:34; Status DC Levofloxacin/ Dextrose 100 ml @ 100 mls/hr Q24H IV Last administered on at 14:11; Start 12/12/18 at 13:00; Stop 12/12/18 at 15:54; Status DC Enoxaparin Sodium (Lovenox 40mg Syringe) 40 mg Q24H SQ Last administered on at 14:16; Start 12/12/18 at 13:00; Stop 12/15/18 at 07:40; Status DC Fentanyl Citrate (Fentanyl 2ml Vial) 25 mcg PRN Q5MIN PRN IV MILD PAIN; Start 12/12/18 at 14:00; Stop 12/13/18 at 13:59; Status DC Fentanyl Citrate (Fentanyl 2ml Vial) 50 mcg PRN Q5MIN PRN IV MODERATE TO SEVERE PAIN; Start 12/12/18 at 14:00; Stop 12/13/18 at 13:59; Status DC Morphine Sulfate (Morphine Sulfate) 1 mg PRN Q10MIN PRN IV PAIN; Start at 14:15; Stop 12/13/18 at 10:38; Status DC Ringer's Solution 1,000 ml @ 30 mls/hr Q24H IV ; Start 12/12/18 at 13:55; Stop 12/13/18 at 01:54; Status DC Lidocaine HCl (Xylocaine-Mpf 1% 2ml Vial) 2 ml 1X PRN PRN ID IV START; Start at 14:00; Stop 12/13/18 at 13:59; Status DC Hydromorphone HCl (Dilaudid) 0.5 mg PRN Q10MIN PRN IV SEV PAIN, Second choice; Start 12/12/18 at 14:00; Stop 12/13/18 at 13:59; Status DC Prochlorperazine Edisylate (Compazine) 5 mg PACU PRN PRN IV NAUSEA, MRX1; Start 12/12/18 at 14:00; Stop 12/13/18 at 13:59; Status DC Tigecycline 100 mg/Dextrose 100 ml @ 200 mls/hr 1X ONCE IV Last administered on 12/12/18at 17:40; Start 12/12/18 at 15:15; Stop 12/12/18 at 15:44; Status DC Tigecycline 50 mg/ Dextrose 50 ml @ 100 mls/hr Q12H IV Last administered on at 02:44; Start 12/13/18 at 03:00 Rocuronium Ada (Zemuron) 50 mg STK-MED ONCE .ROUTE ; Start 12/12/18 at 15:37 ; Stop 12/12/18 at 15:39; Status DC Fentanyl Citrate (Fentanyl 2ml Vial) 100 mcg STK-MED ONCE .ROUTE ; Start at 15:37; Stop 12/12/18 at 15:39; Status DC Ketamine HCl (Ketamine) 50 mg STK-MED ONCE .ROUTE ; Start 12/12/18 at 15:49; Stop 12/12/18 at 15:51; Status DC Propofol 20 ml @ As Directed STK-MED ONCE IV ; Start 12/12/18 at 15:49; Stop at 15:51; Status DC Lidocaine HCl (Lidocaine Pf 2% Vial) 5 ml STK-MED ONCE .ROUTE ; Start 12/12/18 at 15:49; Stop 12/12/18 at 15:51; Status DC Dexamethasone Sodium Phosphate (Decadron) 20 mg STK-MED ONCE .ROUTE ; Start at 15:49; Stop 12/12/18 at 15:51; Status DC Ondansetron HCl (Zofran) 4 mg STK-MED ONCE .ROUTE ; Start 12/12/18 at 15:49; Stop 12/12/18 at 15:51; Status DC Phenylephrine HCl (PHENYLEPHRINE in 0.9% NACL PF) 1 mg STK-MED ONCE IV ; Start 12/12/18 at 15:49; Stop 12/12/18 at 15:51; Status DC Desflurane (Suprane) 90 ml STK-MED ONCE IH ; Start 12/12/18 at 15:50; Stop 12/12 at 15:52; Status DC Levofloxacin/ Dextrose 100 ml @ 100 mls/hr Q48H IV Last administered on at 15:13; Start 12/13/18 at 16:00; Stop 12/14/18 at 13:26; Status DC Esmolol HCl (Brevibloc) 100 mg STK-MED ONCE IV ; Start 12/12/18 at 16:24; Stop 12/12/18 at 16:26; Status DC Rocuronium Ada (Zemuron) 100 mg STK-MED ONCE .ROUTE ; Start 12/12/18 at 16: 28; Stop 12/12/18 at 16:30; Status DC Phenylephrine HCl (Veto-Synephrine Inj) 10 mg STK-MED ONCE .ROUTE ; Start at 16:41; Stop 12/12/18 at 16:43; Status DC Cellulose (Surgicel Hemostat 4x8) 1 each STK-MED ONCE .ROUTE ; Start 12/12/18 at 16:47; Stop 12/12/18 at 16:49; Status DC Propofol 100 ml @ 0 mls/hr CONT PRN IV SEE PROTOCOL Last administered on at 05:52; Start 12/12/18 at 17:15; Stop 12/14/18 at 13:15; Status DC Sodium Chloride (Normal Saline Flush) 3 ml QSHIFT PRN IV AFTER MEDS AND BLOOD DRAWS; Start 12/12/18 at 17:30 Hydromorphone HCl (Dilaudid) 1 mg PRN Q3HRS PRN IV PAIN SEVERE Last administered on 12/17/18at 17:03; Start 12/12/18 at 17:30 Ondansetron HCl (Zofran) 4 mg PRN Q6HRS PRN IV NAUESA, 1ST CHOICE; Start at 17:30 Midazolam HCl (Versed) 2 mg PRN Q30MIN PRN IV SEE COMMENTS.; Start 12/12/18 at 17:30; Stop 12/14/18 at 13:20; Status DC Midazolam HCl (Versed) 5 mg STK-MED ONCE .ROUTE ; Start 12/12/18 at 17:23; Stop 12/12/18 at 17:25; Status DC Norepinephrine Bitartrate 250 ml @ 1.875 mls/ hr CONT PRN IV SEE I/O RECORD; Start 12/12/18 at 18:15 Sodium Chloride 1,000 ml @ 1,000 mls/hr 1X ONCE IV Last administered on at 18:45; Start 12/12/18 at 18:15; Stop 12/12/18 at 19:14; Status DC Insulin Human Lispro (HumaLOG) 8 units 1X ONCE SQ Last administered on at 22:15; Start 12/12/18 at 22:30; Stop 12/12/18 at 22:31; Status DC Insulin Human Regular (HumuLIN R VIAL) 10 unit 1X ONCE IV Last administered on 12/13/18at 08:40; Start 12/13/18 at 07:30; Stop 12/13/18 at 07:46; Status DC Insulin Human Lispro (HumaLOG) 6 units 1X ONCE SQ Last administered on at 08:41; Start 12/13/18 at 07:30; Stop 12/13/18 at 07:46; Status DC Insulin Human Lispro (HumaLOG) 0-7 UNITS Q4HRS SQ ; Start 12/13/18 at 08:00; Stop 12/13/18 at 20:34; Status DC Dextrose (Dextrose 50%-Water Syringe) 12.5 gm PRN Q15MIN PRN IV SEE COMMENTS; Start 12/13/18 at 08:00; Stop 12/14/18 at 12:57; Status DC Sodium Chloride 1,000 ml @ 1,000 mls/hr 1X ONCE IV Last administered on at 10:14; Start 12/13/18 at 10:00; Stop 12/13/18 at 11:00; Status DC Sodium Bicarbonate (Sodium Bicarb Adult 8.4% Syr) 50 meq 1X ONCE IV Last administered on 12/13/18at 10:14; Start 12/13/18 at 10:00; Stop 12/13/18 at 10:08 ; Status DC Insulin Human Regular 150 unit/ Sodium Chloride 151.5 ml @ 0 mls/hr CONT PRN PRN IV PER PROTOCOL; Start 12/13/18 at 11:00; Stop 12/13/18 at 20:34; Status DC Potassium Chloride/Water 100 ml @ 100 mls/hr PRN Q1HR PRN IV SEE COMMENTS; Start 12/13/18 at 11:00 Potassium Chloride/Water 100 ml @ 100 mls/hr PRN Q1HR PRN IV SEE COMMENTS; Start 12/13/18 at 11:00 Potassium Chloride/Water 100 ml @ 100 mls/hr PRN Q1HR PRN IV SEE COMMENTS; Start 12/13/18 at 11:00 Sodium Bicarbonate 50 meq/Sodium Chloride 1,050 ml @ 150 mls/hr Q7H IV Last administered on 12/15/18at 07:53; Start 12/13/18 at 11:00; Stop 12/15/18 at 14:19 ; Status DC Albumin Human 500 ml @ 125 mls/hr 1X ONCE IV Last administered on 12/13/18at 14:52; Start 12/13/18 at 11:30; Stop 12/13/18 at 15:29; Status DC Vitamin A/Vitamin D (Vitamin A & D Ointment) 1 ada PRN TID PRN TP SKIN PROTECTION Last administered on 12/15/18at 20:45; Start 12/13/18 at 14:00 Magnesium Sulfate/ Dextrose 100 ml @ 25 mls/hr 1X ONCE IV Last administered on 12/13/18at 19:24; Start 12/13/18 at 18:30; Stop 12/13/18 at 22:29; Status DC Potassium Chloride/Water 100 ml @ 100 mls/hr Q1HR IV Last administered on 12/13at 21:42; Start 12/13/18 at 19:00; Stop 12/13/18 at 22:59; Status DC Fentanyl Citrate (Fentanyl 2ml Vial) 25 mcg PRN Q2HR PRN IV MODERATE PAIN Last administered on 12/18/18at 02:48; Start 12/13/18 at 18:30 Dextrose/Sodium Chloride 1,000 ml @ 250 mls/hr Q4H IV Last administered on at 20:00; Start 12/13/18 at 20:00; Stop 12/13/18 at 20:34; Status DC Insulin Glargine (Lantus) 20 units QHS SQ Last administered on 12/17/18at 21:44 ; Start 12/13/18 at 21:00 Insulin Human Lispro (HumaLOG) 0-9 UNITS Q4HRS SQ Last administered on at 17:06; Start 12/14/18 at 00:00; Stop 12/17/18 at 17:52; Status DC Dextrose (Dextrose 50%-Water Syringe) 12.5 gm PRN Q15MIN PRN IV SEE COMMENTS; Start 12/13/18 at 20:30 Albumin Human 500 ml @ 125 mls/hr 1X ONCE IV Last administered on 12/14/18at 00:09; Start 12/13/18 at 23:15; Stop 12/14/18 at 03:14; Status DC Levofloxacin/ Dextrose 150 ml @ 100 mls/hr Q48H IV Last administered on at 16:09; Start 12/15/18 at 16:00; Stop 12/16/18 at 13:54; Status DC Enoxaparin Sodium (Lovenox 60mg Syringe) 60 mg Q12HR SQ Last administered on at 10:01; Start 12/15/18 at 09:00 Sodium Chloride 1,000 ml @ 75 mls/hr [id number] IV Last administered on at 10:07; Start 12/15/18 at 15:00 Lactobacillus Rhamnosus (Culturelle) 1 cap BID PO Last administered on at 21:40; Start 12/16/18 at 21:00 Famotidine (Pepcid) 20 mg QHS PO Last administered on 12/17/18at 21:40; Start at 21:00 Magnesium Sulfate 50 ml @ 25 mls/hr 1X ONCE IV Last administered on 12/17/18at 13:17; Start 12/17/18 at 13:15; Stop 12/17/18 at 15:14; Status DC Micafungin Sodium 100 mg/Dextrose 100 ml @ 100 mls/hr Q24H IV Last administered on 12/17/18at 15:22; Start 12/17/18 at 14:00 Insulin Human Lispro (HumaLOG) 0-9 UNITS [id number] SQ ; Start 12/17/18 at 21:00 Piperacillin Sod/ Tazobactam Sod 3.375 gm/Sodium Chloride 100 ml @ 200 mls/hr 1X ONCE IV ; Start 12/18/18 at 09:45; Stop 12/18/18 at 10:14; Status DC Piperacillin Sod/ Tazobactam Sod 0.168 gm/Dextrose 50 ml @ 600 mls/hr 1X ONCE IV ; Start 12/18/18 at 10:00; Stop 12/18/18 at 10:04; Status DC Piperacillin Sod/ Tazobactam Sod 0.45766 gm/ Dextrose 100 ml @ 1,200 mls/hr 1X ONCE IV ; Start 12/18/18 at 10:00; Stop 12/18/18 at 10:04; Status DC Active Scripts Active Reported Potassium Chloride 20 Meq Tablet.er 20 Meq PO TIDWMEALS Roxicodone (Oxycodone HCl) 5 Mg Tablet 5 Mg PO PRN Q4HRS PRN Nystatin 1 Each Powder.ea. 1 Each MC BID Levemir (Insulin Detemir) 100 Unit/1 Ml Vial 20 Unit SQ HS Novolog (Insulin Aspart) 100 Unit/1 Ml Cartridge 0 SQ QIDACHS Guaifenesin 600 Mg Tablet.er 600 Mg PO BID Bisacodyl 10 Mg Supp.rect 10 Mg RC PRN DAILY PRN Alprazolam 1 Mg Tablet 1 Tab PO TID PRN Acetaminophen Supp (Acetaminophen) 650 Mg Supp.rect 650 Mg RC PRN Q6HRS PRN Proair Hfa Inhaler (Albuterol Sulfate) 8.5 Gm Hfa.aer.ad 1 Puff INH PRN Q6HRS PRN Levothyroxine Sodium 75 Mcg Tablet 1 Tab PO DAILY Vitals/I & O Vital Sign - Last 24 Hours 12/17/18 12/17/18 12/17/18 12/17/18 13:17 15:00 15:22 17:03 Temp 98.3 98.3 Pulse 112 Resp 18 B/P (MAP) 199/82 (121) Pulse Ox 96 O2 Delivery Nasal Cannula Nasal Cannula BiPAP/CPAP Nasal Cannula O2 Flow Rate 3.0 3.0 3.0 3.0 12/17/18 12/17/18 12/17/18 12/17/18 17:45 19:00 20:00 21:40 Temp 97.2 97.2 Pulse 114 Resp 20 B/P (MAP) 152/72 (98) Pulse Ox 98 97 O2 Delivery Nasal Cannula Nasal Cannula Nasal Cannula Nasal Cannula O2 Flow Rate 3.0 3.0 3.0 2.0 12/17/18 12/17/18 12/18/18 12/18/18 22:40 23:00 00:23 00:34 Temp 98.2 98.2 Pulse 110 110 Resp 20 B/P (MAP) 174/78 (110) 156/83 (107) Pulse Ox 97 97 97 O2 Delivery Nasal Cannula Nasal Cannula Nasal Cannula Nasal Cannula O2 Flow Rate 2.0 3.0 2.0 2.0 12/18/18 12/18/18 12/18/18 12/18/18 02:48 03:00 03:20 06:02 Temp 97.0 97.0 Pulse 109 Resp 20 B/P (MAP) 167/80 (109) Pulse Ox 97 95 95 95 O2 Delivery Nasal Cannula Nasal Cannula Nasal Cannula Nasal Cannula O2 Flow Rate 2.0 3.0 2.0 2.0 12/18/18 12/18/18 12/18/18 12/18/18 06:33 07:00 08:08 08:20 Temp 98.2 98.2 Pulse 106 Resp 18 B/P (MAP) 145/75 (98) Pulse Ox 95 100 O2 Delivery Nasal Cannula Nasal Cannula Nasal Cannula O2 Flow Rate 2.0 2.0 2.0 12/18/18 12/18/18 08:40 10:10 O2 Delivery Nasal Cannula Nasal Cannula O2 Flow Rate 2.0 2.0 Intake and Output 12/17/18 12/17/18 12/18/18 15:01 23:01 07:01 Intake Total 125 ml 75 ml 0 ml Output Total 750 ml Balance 125 ml -675 ml 0 ml SAMI CHENEY MD Dec 18, 2018 11:42
[2018-12-18] MEDS ORDERED: PERFLUTREN PROTEIN-A MICROSPHR 0.22 MG/ML 3 ML VIAL. IV ONE ×2 (12:44→13:00)
[2018-12-18] MEDS ORDERED: PERFLUTREN PROTEIN-A MICROSPHR 0.22 MG/ML 3 ML VIAL. IV PRN (13:45)
[2018-12-18] MEDS ORDERED: LIDOCAINE WITH 8.4% SOD BICARB 3 ML DISP.SYRIN. ONE (15:16)
[2018-12-18] MEDS ORDERED: LIDOCAINE WITH 8.4% SOD BICARB 3 ML DISP.SYRIN. INJ ONE (16:00)
--- NOTE | 2018-12-18 16:03 | PDOC ---
BRIEF OPERATIVE NOTE Pre-Op Diagnosis Spontaneous left pneumothorax Post-Op Diagnosis same Procedure Performed CT chest tube Surgeon Li Anesthesia Type: Local, Conscious Sedation Findings 10F chest tube Complications No immediate COLLEEN MYLES MD Dec 18, 2018 16:02
--- NOTE | 2018-12-18 16:18 | RAD ---
Procedure: CT-guided left chest tube placement for pneumothorax Clinical Indication: 73-year-old with spontaneous left pneumothorax Sedation: Local anesthesia only Antibiotics: None Sterility: The procedure was performed in its entirety using appropriate elements of sterile technique. Consent: The procedure was explained in its entirety to the patient or the patients designated financial services representative by a member of the treatment team, including a discussion of the risks, benefits and commonly accepted alternatives to the procedure, as well as the expected consequences of no therapy whatsoever. Discussion of the risks included, but was not limited to, those that are most frequent and those that are rare but possibly severe or life-threatening, as well as the possibility of unforeseen complications. Technique and Findings: Following informed consent, the patient was prepped and draped in usual sterile fashion. Preliminary CT scan of the area of interest was performed. 1% lidocaine was used to achieve local anesthesia over the left anterior second intercostal space. A small dermatotomy was made. Under periodic CT surveillance, a 5 [place] sheath needle was advanced into the pleural space and exchanged over wire for 10 [place] pigtail drainage catheter. 300 cc of air was aspirated. The chest tube was sutured to the skin and placed to Pleur-evac drainage. Complications: No immediate Impression: 1. CT-guided left chest tube for pneumothorax as described PQRS Compliance Statement: One or more of the following individualized dose reduction techniques were utilized for this examination: 1. Automated exposure control 2. Adjustment of the mA and/or kV according to patient size 3. Use of iterative reconstruction technique
[2018-12-18] MEDS: MICAFUNGIN 100 MG in IV DEXTROSE 5% 100ML 100 ML IV SCH (16:29)
--- NOTE | 2018-12-18 16:47 | CARD ---
MR#: [id number] Date of Study: 12/18/2018 Ordering Physician: CARMITA NERI, Referring Physician: MERY DUONG Tech: Nanda Vaughan VINH APPROVED REPORT EXAM: Two-dimensional echocardiogram with contrast. Other Information Quality : Technically LimitedHR: 110bpm Rhythm : TachycardiaTechnically limited study due to body habitus and unable to lay patient flat. INDICATION NSVT Echo Enhancing Agent Indication: Endocardial border delineation Agent/Amount Used: 1 mL 2D DIMENSIONS RVDd4.4 (2.9-3.5cm)Left Atrium(2D)3.1 (1.6-4.0cm) IVSd1.2 (0.7-1.1cm)Aortic Root(2D)3.3 (2.0-3.7cm) LVDd3.8 (3.9-5.9cm)LVOT Diameter2.2 (1.8-2.4cm) PWd1.0 (0.7-1.1cm)LVDs2.3 (2.5-4.0cm) FS (%) 39.2 %SV44.2 ml LVEF(%)70.3 (>50%) Aortic Valve AoV Peak Jaycob.138.7cm/sAoV VTI25.4cm AO Peak GR.7.7mmHgLVOT Peak Jaycob.80.6cm/s AO Mean GR.4mmHgAVA (VMAX)2.12cm2 ALIX (VTI)2.10cm2 Mitral Valve MV E Qazbsdqo26.4cm/sMV DECEL OPRL872zh MV A Cjxkbpav287.1cm/sE/A Ratio0.8 Tricuspid Valve TR P. [id number]/sRAP [id number] TR Peak Gr.85lnYtPBCF56oyGb LEFT VENTRICLE The left ventricle is normal size. Proximal septal thickening is noted. The Ejection Fraction is 65%. The left ventricular systolic function is normal. RIGHT VENTRICLE The right ventricle is mildly dilated. Right ventricular function cannot be assessed due to poor imag e quality. ATRIA The left atrium size is normal. The right atrium is not well visualized. Interatrial septum not well visualized. AORTIC VALVE The aortic valve is not well visualized. Doppler and Color Flow revealed no significant aortic regurg itation. There is no significant aortic valvular stenosis. MITRAL VALVE Mitral annular calcification is mild. There is no evidence of mitral valve prolapse. There is no mitr al valve stenosis. Doppler and Color Flow revealed no mitral valve regurgitation noted. TRICUSPID VALVE Tricuspid valve is not well visualized. Doppler and Color Flow revealed mild tricuspid regurgitation. There is moderate pulmonary hypertension. The PA pressure was estimated at 58 mmHg. PULMONIC VALVE Pulmonic valve is not well visualized. GREAT VESSELS The aortic root is normal in size. PERICARDIAL EFFUSION There is no evidence of significant pericardial effusion. Critical Notification Critical Value: No <Conclusion> Technically very difficult study. Valves not well visualized. The left ventricular systolic function is normal. The Ejection Fraction is 65%. Doppler and Color Flow revealed mild tricuspid regurgitation. There is moderate pulmonary hypertension. The PA pressure was estimated at 58 mmHg. There is no evidence of significant pericardial effusion. Signed by : Dyllan Jalloh, Electronically Approved : 12/18/2018 16:44:49
--- NOTE | 2018-12-18 17:21 | NUR ---
Patient started on zosyn desensitization protocol per ID. Paper charting and vitals in hard chart. Patient had no adverse reaction to treatment. No signs or rash or respiratory distress. Patient is resting comfortably.
--- NOTE | 2018-12-18 17:38 | PDOC ---
PROGRESS NOTES Subjective Subjective Patient seen and examined Objective Objective Vital Signs Date Time Temp Pulse Resp B/P (MAP) Pulse Ox O2 Delivery O2 Flow Rate FiO2 12/18/18 16:55 100 Nasal Cannula 2.0 12/18/18 15:50 95 143/70 (94) 12/18/18 12:34 98.8 98.8 12/18/18 07:00 18 Intake and Output 12/18/18 07:01 Intake Total 200 ml Output Total 750 ml Balance -550 ml Intake Oral 200 ml Output Urine Total 750 ml Physical Exam Abdomen: Normal bowel sounds Heart: Regular rate General: mild distress Lungs: Other (decreased breath sounds) Assessment Assessment 1. Prolonged hospital course with initial admission for abdominal pain with surgery and postop issues as outlined above. Patient has also developed a spontaneous pneumothorax and has a chest tube placed. She is feeling fatigued but is in no acute distress with vital signs stable. 2. Episode of nonsustained ventricular tachycardia. Magnesium replaced. Echocardiogram shows normal LV systolic function and no severe valvular disease. Would continue present treatment as above. Comment Review of Relevant I have reviewed the following items leif (where applicable) has been applied. Labs Laboratory Tests Test 12/16/18 20:37 12/17/18 00:07 12/17/18 04:30 12/17/18 04:39 Glucose (Fingerstick) 108 mg/dL (70-99) 182 mg/dL (70-99) 202 mg/dL (70-99) White Blood Count 12.3 x10^3/uL (4.0-11.0) Red Blood Count 3.21 x10^6/uL (3.50-5.40) Hemoglobin 9.1 g/dL (12.0-15.5) Hematocrit 29.0 % (36.0-47.0) Mean Corpuscular Volume 91 fL (79-100) Mean Corpuscular Hemoglobin 29 pg (25-35) Mean Corpuscular Hemoglobin Concent 32 g/dL (31-37) Red Cell Distribution Width 14.8 % (11.5-14.5) Platelet Count 319 x10^3/uL (140-400) Neutrophils (%) (Auto) 80 % (31-73) Lymphocytes (%) (Auto) 13 % (24-48) Monocytes (%) (Auto) 7 % (0-9) Eosinophils (%) (Auto) 0 % (0-3) Basophils (%) (Auto) 0 % (0-3) Neutrophils # (Auto) 9.8 x10^3uL (1.8-7.7) Lymphocytes # (Auto) 1.6 x10^3/uL (1.0-4.8) Monocytes # (Auto) 0.8 x10^3/uL (0.0-1.1) Eosinophils # (Auto) 0.0 x10^3/uL (0.0-0.7) Basophils # (Auto) 0.0 x10^3/uL (0.0-0.2) Sodium Level 143 mmol/L (136-145) Potassium Level 4.1 mmol/L (3.5-5.1) Chloride Level 104 mmol/L (98-107) Carbon Dioxide Level 32 mmol/L (21-32) Anion Gap 7 (6-14) Blood Urea Nitrogen 40 mg/dL (7-20) Creatinine 1.1 mg/dL (0.6-1.0) Estimated GFR (Cockcroft-Gault) 48.6 BUN/Creatinine Ratio 36 (6-20) Glucose Level 248 mg/dL (70-99) Calcium Level 8.4 mg/dL (8.5-10.1) Total Bilirubin 1.0 mg/dL (0.2-1.0) Aspartate Amino Transf (AST/SGOT) 23 U/L (15-37) Alanine Aminotransferase (ALT/SGPT) 22 U/L (14-59) Alkaline Phosphatase 192 U/L (46-116) Total Protein 5.7 g/dL (6.4-8.2) Albumin 1.8 g/dL (3.4-5.0) Albumin/Globulin Ratio 0.5 (1.0-1.7) Thyroid Stimulating Hormone (TSH) 0.746 uIU/mL (0.358-3.74) Test 12/17/18 05:00 12/17/18 05:56 12/17/18 08:02 12/17/18 12:04 Magnesium Level 1.6 mg/dL (1.8-2.4) Glucose (Fingerstick) 228 mg/dL (70-99) 238 mg/dL (70-99) 230 mg/dL (70-99) Test 12/17/18 17:01 12/17/18 21:04 12/18/18 05:15 12/18/18 07:57 Glucose (Fingerstick) 210 mg/dL (70-99) 184 mg/dL (70-99) 151 mg/dL (70-99) White Blood Count 10.8 x10^3/uL (4.0-11.0) Red Blood Count 3.11 x10^6/uL (3.50-5.40) Hemoglobin 9.0 g/dL (12.0-15.5) Hematocrit 28.0 % (36.0-47.0) Mean Corpuscular Volume 90 fL (79-100) Mean Corpuscular Hemoglobin 29 pg (25-35) Mean Corpuscular Hemoglobin Concent 32 g/dL (31-37) Red Cell Distribution Width 15.0 % (11.5-14.5) Platelet Count 310 x10^3/uL (140-400) Neutrophils (%) (Auto) 74 % (31-73) Lymphocytes (%) (Auto) 18 % (24-48) Monocytes (%) (Auto) 7 % (0-9) Eosinophils (%) (Auto) 0 % (0-3) Basophils (%) (Auto) 0 % (0-3) Neutrophils # (Auto) 8.0 x10^3uL (1.8-7.7) Lymphocytes # (Auto) 1.9 x10^3/uL (1.0-4.8) Monocytes # (Auto) 0.8 x10^3/uL (0.0-1.1) Eosinophils # (Auto) 0.0 x10^3/uL (0.0-0.7) Basophils # (Auto) 0.0 x10^3/uL (0.0-0.2) Sodium Level 141 mmol/L (136-145) Potassium Level 3.8 mmol/L (3.5-5.1) Chloride Level 104 mmol/L (98-107) Carbon Dioxide Level 31 mmol/L (21-32) Anion Gap 6 (6-14) Blood Urea Nitrogen 36 mg/dL (7-20) Creatinine 0.9 mg/dL (0.6-1.0) Estimated GFR (Cockcroft-Gault) 61.2 BUN/Creatinine Ratio 40 (6-20) Glucose Level 172 mg/dL (70-99) Calcium Level 7.9 mg/dL (8.5-10.1) Magnesium Level 1.9 mg/dL (1.8-2.4) Total Bilirubin 1.1 mg/dL (0.2-1.0) Aspartate Amino Transf (AST/SGOT) 23 U/L (15-37) Alanine Aminotransferase (ALT/SGPT) 20 U/L (14-59) Alkaline Phosphatase 187 U/L (46-116) Total Protein 5.4 g/dL (6.4-8.2) Albumin 1.6 g/dL (3.4-5.0) Albumin/Globulin Ratio 0.4 (1.0-1.7) Laboratory Tests Test 12/17/18 21:04 12/18/18 05:15 12/18/18 07:57 Glucose (Fingerstick) 184 mg/dL (70-99) 151 mg/dL (70-99) White Blood Count 10.8 x10^3/uL (4.0-11.0) Red Blood Count 3.11 x10^6/uL (3.50-5.40) Hemoglobin 9.0 g/dL (12.0-15.5) Hematocrit 28.0 % (36.0-47.0) Mean Corpuscular Volume 90 fL (79-100) Mean Corpuscular Hemoglobin 29 pg (25-35) Mean Corpuscular Hemoglobin Concent 32 g/dL (31-37) Red Cell Distribution Width 15.0 % (11.5-14.5) Platelet Count 310 x10^3/uL (140-400) Neutrophils (%) (Auto) 74 % (31-73) Lymphocytes (%) (Auto) 18 % (24-48) Monocytes (%) (Auto) 7 % (0-9) Eosinophils (%) (Auto) 0 % (0-3) Basophils (%) (Auto) 0 % (0-3) Neutrophils # (Auto) 8.0 x10^3uL (1.8-7.7) Lymphocytes # (Auto) 1.9 x10^3/uL (1.0-4.8) Monocytes # (Auto) 0.8 x10^3/uL (0.0-1.1) Eosinophils # (Auto) 0.0 x10^3/uL (0.0-0.7) Basophils # (Auto) 0.0 x10^3/uL (0.0-0.2) Sodium Level 141 mmol/L (136-145) Potassium Level 3.8 mmol/L (3.5-5.1) Chloride Level 104 mmol/L (98-107) Carbon Dioxide Level 31 mmol/L (21-32) Anion Gap 6 (6-14) Blood Urea Nitrogen 36 mg/dL (7-20) Creatinine 0.9 mg/dL (0.6-1.0) Estimated GFR (Cockcroft-Gault) 61.2 BUN/Creatinine Ratio 40 (6-20) Glucose Level 172 mg/dL (70-99) Calcium Level 7.9 mg/dL (8.5-10.1) Magnesium Level 1.9 mg/dL (1.8-2.4) Total Bilirubin 1.1 mg/dL (0.2-1.0) Aspartate Amino Transf (AST/SGOT) 23 U/L (15-37) Alanine Aminotransferase (ALT/SGPT) 20 U/L (14-59) Alkaline Phosphatase 187 U/L (46-116) Total Protein 5.4 g/dL (6.4-8.2) Albumin 1.6 g/dL (3.4-5.0) Albumin/Globulin Ratio 0.4 (1.0-1.7) Microbiology 12/12/18 - Final, Complete 12/12/18 - Final, Complete 12/12/18 - Final, Complete 12/12/18 Gram Stain Evaluation - Final, Complete 12/12/18 Sputum Culture - Final, Complete 12/12/18 Sputum Result 1 - Final, Complete 12/12/18 Sputum Result 2 - Final, Complete 12/12/18 Anaerobic/Aerobic Culture - Final, Complete 12/12/18 Anaerobic Culture Result 1 (MILLY) - Final, Complete 12/12/18 Aerobic Culture - Final, Complete 12/12/18 Aerobic Culture Result 1 (MILLY) - Final, Complete 12/12/18 Aerobic Culture Result 2 (MILLY) - Final, Complete 12/12/18 Antimicrobic Susceptibility - Final, Complete 12/12/18 Gram Stain - Final, Complete 12/12/18 Gram Stain Result 1 (MILLY) - Final, Complete 12/12/18 Gram Stain Result 2 (MILLY) - Final, Complete Medications Current Medications Ondansetron HCl (Zofran) 4 mg PRN Q6HRS PRN IV NAUSEA/VOMITING; Start 12/12/18 at 12:15; Stop 12/13/18 at 10:37; Status DC Prochlorperazine Edisylate (Compazine) 10 mg PRN Q6HRS PRN IV NAUSEA/VOMITING, 2ND CHOICE; Start 12/12/18 at 12:15 Prochlorperazine (Compazine) 25 mg PRN Q12HR PRN [place] NAUSEA/VOMITING; Start at 12:15 Al Hydroxide/Mg Hydroxide (Mylanta Plus Xs) 30 ml PRN Q3HRS PRN PO HEARTBURN / GAS; Start 12/12/18 at 12:15 Calcium Carbonate/ Glycine (Tums) 500 mg PRN Q3HRS PRN PO UPSET STOMACH; Start 12/12/18 at 12:15 Zolpidem Tartrate (Ambien) 5 mg PRN QHS PRN PO INSOMNIA, MAY REPEAT IN 1HR; Start 12/12/18 at 12:15 Oxycodone HCl (Roxicodone) 5 mg PRN Q3HRS PRN PO BREAKTHROUGH PAIN Last administered on 12/17/18at 21:40; Start 12/12/18 at 12:15 Morphine Sulfate (Morphine Sulfate) 2 mg PRN Q2HR PRN IV MILD PAIN Last administered on 12/18/18at 16:24; Start 12/12/18 at 12:15 Acetaminophen (Tylenol) 650 mg PRN Q6HRS PRN PO Headaches, Temp > 101.5F; Start 12/12/18 at 12:15 Magnesium Hydroxide (Milk Of Magnesia) 2,400 mg PRN Q12HR PRN PO CONSTIPATION; Start 12/12/18 at 12:15 Bisacodyl (Dulcolax Supp) 10 mg PRN DAILY PRN [place] CONSTIPATION; Start 12/12/18 at 12:15; Stop 12/12/18 at 12:26; Status DC Enoxaparin Sodium (Lovenox 40mg Syringe) 40 mg Q24H SQ ; Start 12/12/18 at 13:00 ; Stop 12/12/18 at 13:00; Status DC Sodium Chloride 1,000 ml @ 100 mls/hr Q10H IV Last administered on 12/13/18at 08:42; Start 12/12/18 at 12:15; Stop 12/13/18 at 11:01; Status DC Famotidine (Pepcid Vial) 20 mg QHS IVP Last administered on 12/15/18at 21:09; Start 12/12/18 at 21:00; Stop 12/16/18 at 15:32; Status DC Acetaminophen (Tylenol Supp) 650 mg PRN Q6HRS PRN RC FEVER; Start 12/12/18 at 12:30 Albuterol Sulfate (Ventolin Neb Soln) 2.5 mg PRN Q6HRS PRN INH SHORTNESS OF BREATH Last administered on 12/15/18at 04:17; Start 12/12/18 at 12:30 Bisacodyl (Dulcolax Supp) 10 mg PRN DAILY PRN RC CONSTIPATION; Start 12/12/18 at 12:30 Insulin Glargine (Lantus) 20 units QHS SQ ; Start 12/12/18 at 21:00; Stop at 21:00; Status DC Nystatin (Nystop) 1 ada BID TP Last administered on 12/18/18at 10:01; Start at 13:00 Norepinephrine Bitartrate 250 ml @ 1.875 mls/ hr CONT PRN IV SEE I/O RECORD Last administered on 12/12/18at 18:17; Start 12/12/18 at 12:45; Stop 12/12/18 at 12:45; Status DC Norepinephrine Bitartrate 250 ml @ 1.875 mls/ hr CONT PRN IV SEE I/O RECORD; Start 12/12/18 at 12:30; Status Cancel Levofloxacin/ Dextrose (Levaquin Per Pharmacy) 1 each PRN DAILY PRN MC SEE COMMENTS; Start 12/12/18 at 12:30; Stop 12/16/18 at 13:54; Status DC Metronidazole 100 ml @ 100 mls/hr Q8HRS IV Last administered on 12/13/18at 05: 53; Start 12/12/18 at 14:00; Stop 12/13/18 at 11:32; Status DC Insulin Glargine (Lantus) 10 units QHS SQ Last administered on 12/12/18at 22:11 ; Start 12/12/18 at 21:00; Stop 12/13/18 at 20:34; Status DC Levofloxacin/ Dextrose 100 ml @ 100 mls/hr Q24H IV Last administered on at 14:11; Start 12/12/18 at 13:00; Stop 12/12/18 at 15:54; Status DC Enoxaparin Sodium (Lovenox 40mg Syringe) 40 mg Q24H SQ Last administered on at 14:16; Start 12/12/18 at 13:00; Stop 12/15/18 at 07:40; Status DC Fentanyl Citrate (Fentanyl 2ml Vial) 25 mcg PRN Q5MIN PRN IV MILD PAIN; Start 12/12/18 at 14:00; Stop 12/13/18 at 13:59; Status DC Fentanyl Citrate (Fentanyl 2ml Vial) 50 mcg PRN Q5MIN PRN IV MODERATE TO SEVERE PAIN; Start 12/12/18 at 14:00; Stop 12/13/18 at 13:59; Status DC Morphine Sulfate (Morphine Sulfate) 1 mg PRN Q10MIN PRN IV PAIN; Start at 14:15; Stop 12/13/18 at 10:38; Status DC Ringer's Solution 1,000 ml @ 30 mls/hr Q24H IV ; Start 12/12/18 at 13:55; Stop 12/13/18 at 01:54; Status DC Lidocaine HCl (Xylocaine-Mpf 1% 2ml Vial) 2 ml 1X PRN PRN ID IV START; Start at 14:00; Stop 12/13/18 at 13:59; Status DC Hydromorphone HCl (Dilaudid) 0.5 mg PRN Q10MIN PRN IV SEV PAIN, Second choice; Start 12/12/18 at 14:00; Stop 12/13/18 at 13:59; Status DC Prochlorperazine Edisylate (Compazine) 5 mg PACU PRN PRN IV NAUSEA, MRX1; Start 12/12/18 at 14:00; Stop 12/13/18 at 13:59; Status DC Tigecycline 100 mg/Dextrose 100 ml @ 200 mls/hr 1X ONCE IV Last administered on 12/12/18at 17:40; Start 12/12/18 at 15:15; Stop 12/12/18 at 15:44; Status DC Tigecycline 50 mg/ Dextrose 50 ml @ 100 mls/hr Q12H IV Last administered on at 15:00; Start 12/13/18 at 03:00 Rocuronium Draper (Zemuron) 50 mg STK-MED ONCE .ROUTE ; Start 12/12/18 at 15:37 ; Stop 12/12/18 at 15:39; Status DC Fentanyl Citrate (Fentanyl 2ml Vial) 100 mcg STK-MED ONCE .ROUTE ; Start at 15:37; Stop 12/12/18 at 15:39; Status DC Ketamine HCl (Ketamine) 50 mg STK-MED ONCE .ROUTE ; Start 12/12/18 at 15:49; Stop 12/12/18 at 15:51; Status DC Propofol 20 ml @ As Directed STK-MED ONCE IV ; Start 12/12/18 at 15:49; Stop at 15:51; Status DC Lidocaine HCl (Lidocaine Pf 2% Vial) 5 ml STK-MED ONCE .ROUTE ; Start 12/12/18 at 15:49; Stop 12/12/18 at 15:51; Status DC Dexamethasone Sodium Phosphate (Decadron) 20 mg STK-MED ONCE .ROUTE ; Start at 15:49; Stop 12/12/18 at 15:51; Status DC Ondansetron HCl (Zofran) 4 mg STK-MED ONCE .ROUTE ; Start 12/12/18 at 15:49; Stop 12/12/18 at 15:51; Status DC Phenylephrine HCl (PHENYLEPHRINE in 0.9% NACL PF) 1 mg STK-MED ONCE IV ; Start 12/12/18 at 15:49; Stop 12/12/18 at 15:51; Status DC Desflurane (Suprane) 90 ml STK-MED ONCE IH ; Start 12/12/18 at 15:50; Stop 12/12 at 15:52; Status DC Levofloxacin/ Dextrose 100 ml @ 100 mls/hr Q48H IV Last administered on at 15:13; Start 12/13/18 at 16:00; Stop 12/14/18 at 13:26; Status DC Esmolol HCl (Brevibloc) 100 mg STK-MED ONCE IV ; Start 12/12/18 at 16:24; Stop 12/12/18 at 16:26; Status DC Rocuronium Draper (Zemuron) 100 mg STK-MED ONCE .ROUTE ; Start 12/12/18 at 16: 28; Stop 12/12/18 at 16:30; Status DC Phenylephrine HCl (Veto-Synephrine Inj) 10 mg STK-MED ONCE .ROUTE ; Start at 16:41; Stop 12/12/18 at 16:43; Status DC Cellulose (Surgicel Hemostat 4x8) 1 each STK-MED ONCE .ROUTE ; Start 12/12/18 at 16:47; Stop 12/12/18 at 16:49; Status DC Propofol 100 ml @ 0 mls/hr CONT PRN IV SEE PROTOCOL Last administered on at 05:52; Start 12/12/18 at 17:15; Stop 12/14/18 at 13:15; Status DC Sodium Chloride (Normal Saline Flush) 3 ml QSHIFT PRN IV AFTER MEDS AND BLOOD DRAWS; Start 12/12/18 at 17:30 Hydromorphone HCl (Dilaudid) 1 mg PRN Q3HRS PRN IV PAIN SEVERE Last administered on 12/17/18at 17:03; Start 12/12/18 at 17:30 Ondansetron HCl (Zofran) 4 mg PRN Q6HRS PRN IV NAUESA, 1ST CHOICE; Start at 17:30 Midazolam HCl (Versed) 2 mg PRN Q30MIN PRN IV SEE COMMENTS.; Start 12/12/18 at 17:30; Stop 12/14/18 at 13:20; Status DC Midazolam HCl (Versed) 5 mg STK-MED ONCE .ROUTE ; Start 12/12/18 at 17:23; Stop 12/12/18 at 17:25; Status DC Norepinephrine Bitartrate 250 ml @ 1.875 mls/ hr CONT PRN IV SEE I/O RECORD; Start 12/12/18 at 18:15 Sodium Chloride 1,000 ml @ 1,000 mls/hr 1X ONCE IV Last administered on at 18:45; Start 12/12/18 at 18:15; Stop 12/12/18 at 19:14; Status DC Insulin Human Lispro (HumaLOG) 8 units 1X ONCE SQ Last administered on at 22:15; Start 12/12/18 at 22:30; Stop 12/12/18 at 22:31; Status DC Insulin Human Regular (HumuLIN R VIAL) 10 unit 1X ONCE IV Last administered on 12/13/18at 08:40; Start 12/13/18 at 07:30; Stop 12/13/18 at 07:46; Status DC Insulin Human Lispro (HumaLOG) 6 units 1X ONCE SQ Last administered on at 08:41; Start 12/13/18 at 07:30; Stop 12/13/18 at 07:46; Status DC Insulin Human Lispro (HumaLOG) 0-7 UNITS Q4HRS SQ ; Start 12/13/18 at 08:00; Stop 12/13/18 at 20:34; Status DC Dextrose (Dextrose 50%-Water Syringe) 12.5 gm PRN Q15MIN PRN IV SEE COMMENTS; Start 12/13/18 at 08:00; Stop 12/14/18 at 12:57; Status DC Sodium Chloride 1,000 ml @ 1,000 mls/hr 1X ONCE IV Last administered on at 10:14; Start 12/13/18 at 10:00; Stop 12/13/18 at 11:00; Status DC Sodium Bicarbonate (Sodium Bicarb Adult 8.4% Syr) 50 meq 1X ONCE IV Last administered on 12/13/18at 10:14; Start 12/13/18 at 10:00; Stop 12/13/18 at 10:08 ; Status DC Insulin Human Regular 150 unit/ Sodium Chloride 151.5 ml @ 0 mls/hr CONT PRN PRN IV PER PROTOCOL; Start 12/13/18 at 11:00; Stop 12/13/18 at 20:34; Status DC Potassium Chloride/Water 100 ml @ 100 mls/hr PRN Q1HR PRN IV SEE COMMENTS; Start 12/13/18 at 11:00 Potassium Chloride/Water 100 ml @ 100 mls/hr PRN Q1HR PRN IV SEE COMMENTS; Start 12/13/18 at 11:00 Potassium Chloride/Water 100 ml @ 100 mls/hr PRN Q1HR PRN IV SEE COMMENTS; Start 12/13/18 at 11:00 Sodium Bicarbonate 50 meq/Sodium Chloride 1,050 ml @ 150 mls/hr Q7H IV Last administered on 12/15/18at 07:53; Start 12/13/18 at 11:00; Stop 12/15/18 at 14:19 ; Status DC Albumin Human 500 ml @ 125 mls/hr 1X ONCE IV Last administered on 12/13/18at 14:52; Start 12/13/18 at 11:30; Stop 12/13/18 at 15:29; Status DC Vitamin A/Vitamin D (Vitamin A & D Ointment) 1 ada PRN TID PRN TP SKIN PROTECTION Last administered on 12/15/18at 20:45; Start 12/13/18 at 14:00 Magnesium Sulfate/ Dextrose 100 ml @ 25 mls/hr 1X ONCE IV Last administered on 12/13/18at 19:24; Start 12/13/18 at 18:30; Stop 12/13/18 at 22:29; Status DC Potassium Chloride/Water 100 ml @ 100 mls/hr Q1HR IV Last administered on 12/13at 21:42; Start 12/13/18 at 19:00; Stop 12/13/18 at 22:59; Status DC Fentanyl Citrate (Fentanyl 2ml Vial) 25 mcg PRN Q2HR PRN IV MODERATE PAIN Last administered on 12/18/18at 02:48; Start 12/13/18 at 18:30 Dextrose/Sodium Chloride 1,000 ml @ 250 mls/hr Q4H IV Last administered on at 20:00; Start 12/13/18 at 20:00; Stop 12/13/18 at 20:34; Status DC Insulin Glargine (Lantus) 20 units QHS SQ Last administered on 12/17/18at 21:44 ; Start 12/13/18 at 21:00 Insulin Human Lispro (HumaLOG) 0-9 UNITS Q4HRS SQ Last administered on at 17:06; Start 12/14/18 at 00:00; Stop 12/17/18 at 17:52; Status DC Dextrose (Dextrose 50%-Water Syringe) 12.5 gm PRN Q15MIN PRN IV SEE COMMENTS; Start 12/13/18 at 20:30 Albumin Human 500 ml @ 125 mls/hr 1X ONCE IV Last administered on 12/14/18at 00:09; Start 12/13/18 at 23:15; Stop 12/14/18 at 03:14; Status DC Levofloxacin/ Dextrose 150 ml @ 100 mls/hr Q48H IV Last administered on at 16:09; Start 12/15/18 at 16:00; Stop 12/16/18 at 13:54; Status DC Enoxaparin Sodium (Lovenox 60mg Syringe) 60 mg Q12HR SQ Last administered on at 10:01; Start 12/15/18 at 09:00 Sodium Chloride 1,000 ml @ 75 mls/hr [id number] IV Last administered on at 10:07; Start 12/15/18 at 15:00 Lactobacillus Rhamnosus (Culturelle) 1 cap BID PO Last administered on at 21:40; Start 12/16/18 at 21:00 Famotidine (Pepcid) 20 mg QHS PO Last administered on 12/17/18at 21:40; Start at 21:00 Magnesium Sulfate 50 ml @ 25 mls/hr 1X ONCE IV Last administered on 12/17/18at 13:17; Start 12/17/18 at 13:15; Stop 12/17/18 at 15:14; Status DC Micafungin Sodium 100 mg/Dextrose 100 ml @ 100 mls/hr Q24H IV Last administered on 12/18/18at 16:29; Start 12/17/18 at 14:00 Insulin Human Lispro (HumaLOG) 0-9 UNITS TIDWMEALHC SQ ; Start 12/17/18 at 21:00 Piperacillin Sod/ Tazobactam Sod 3.375 gm/Sodium Chloride 100 ml @ 200 mls/hr 1X ONCE IV Last administered on 12/18/18at 16:30; Start 12/18/18 at 09:45; Stop 12/18/18 at 10:14; Status DC Piperacillin Sod/ Tazobactam Sod 0.168 gm/Dextrose 50 ml @ 600 mls/hr 1X ONCE IV Last administered on 12/18/18at 14:02; Start 12/18/18 at 10:00; Stop at 10:04; Status DC Piperacillin Sod/ Tazobactam Sod 0.71676 gm/ Dextrose 100 ml @ 1,200 mls/hr 1X ONCE IV Last administered on 12/18/18at 12:26; Start 12/18/18 at 10:00; Stop 12/18/18 at 10:04; Status DC Perflutren Protein Type A Microsphe (Optison) 0.66 mg STK-MED ONCE IV ; Start at 12:44; Stop 12/18/18 at 12:46; Status DC Perflutren Protein Type A Microsphe (Optison) 0.66 mg PRN 1X PRN IV SEE COMMENTS; Start 12/18/18 at 13:45; Stop 12/19/18 at 13:44 Lidocaine/Sodium Bicarbonate (Buffered Lidocaine 1%) 3 ml STK-MED ONCE .ROUTE ; Start 12/18/18 at 15:16; Stop 12/18/18 at 15:18; Status DC Lidocaine/Sodium Bicarbonate (Buffered Lidocaine 1%) 3 ml 1X ONCE INJ Last administered on 12/18/18at 16:00; Start 12/18/18 at 16:00; Stop 12/18/18 at 16:01 ; Status DC Active Scripts Active Reported Potassium Chloride 20 Meq Tablet.er 20 Meq PO TIDWMEALS Roxicodone (Oxycodone HCl) 5 Mg Tablet 5 Mg PO PRN Q4HRS PRN Nystatin 1 Each Powder.ea. 1 Each MC BID Levemir (Insulin Detemir) 100 Unit/1 Ml Vial 20 Unit SQ HS Novolog (Insulin Aspart) 100 Unit/1 Ml Cartridge 0 SQ QIDACHS Guaifenesin 600 Mg Tablet.er 600 Mg PO BID Bisacodyl 10 Mg Supp.rect 10 Mg RC PRN DAILY PRN Alprazolam 1 Mg Tablet 1 Tab PO TID PRN Acetaminophen Supp (Acetaminophen) 650 Mg Supp.rect 650 Mg RC PRN Q6HRS PRN Proair Hfa Inhaler (Albuterol Sulfate) 8.5 Gm Hfa.aer.ad 1 Puff INH PRN Q6HRS PRN Levothyroxine Sodium 75 Mcg Tablet 1 Tab PO DAILY Vitals/I & O Vital Sign - Last 24 Hours 12/17/18 12/17/18 12/17/18 12/17/18 17:45 19:00 20:00 21:40 Temp 97.2 97.2 Pulse 114 Resp 20 B/P (MAP) 152/72 (98) Pulse Ox 98 97 O2 Delivery Nasal Cannula Nasal Cannula Nasal Cannula Nasal Cannula O2 Flow Rate 3.0 3.0 3.0 2.0 12/17/18 12/17/18 12/18/18 12/18/18 22:40 23:00 00:23 00:34 Temp 98.2 98.2 Pulse 110 110 Resp 20 B/P (MAP) 174/78 (110) 156/83 (107) Pulse Ox 97 97 97 O2 Delivery Nasal Cannula Nasal Cannula Nasal Cannula Nasal Cannula O2 Flow Rate 2.0 3.0 2.0 2.0 12/18/18 12/18/18 12/18/18 12/18/18 02:48 03:00 03:20 06:02 Temp 97.0 97.0 Pulse 109 Resp 20 B/P (MAP) 167/80 (109) Pulse Ox 97 95 95 95 O2 Delivery Nasal Cannula Nasal Cannula Nasal Cannula Nasal Cannula O2 Flow Rate 2.0 3.0 2.0 2.0 12/18/18 12/18/18 12/18/18 12/18/18 07:00 08:08 08:20 10:10 Temp 98.2 98.2 Pulse 106 Resp 18 B/P (MAP) 145/75 (98) Pulse Ox 100 O2 Delivery Nasal Cannula Nasal Cannula Nasal Cannula Nasal Cannula O2 Flow Rate 2.0 2.0 2.0 2.0 12/18/18 12/18/18 12/18/18 12/18/18 12:34 13:00 14:00 15:00 Temp 98.8 98.8 Pulse 101 106 92 88 B/P (MAP) 140/59 (86) 146/83 (104) 148/72 (97) 119/72 (88) Pulse Ox 100 100 100 100 O2 Delivery Nasal Cannula Nasal Cannula Nasal Cannula Nasal Cannula O2 Flow Rate 2.0 2.0 2.0 2.0 12/18/18 12/18/18 12/18/18 12/18/18 15:45 15:50 16:24 16:55 Pulse 102 95 B/P (MAP) 156/70 (98) 143/70 (94) Pulse Ox 100 100 100 100 O2 Delivery Nasal Cannula Nasal Cannula Nasal Cannula Nasal Cannula O2 Flow Rate 2.0 2.0 2.0 2.0 Intake and Output 12/17/18 12/17/18 12/18/18 15:01 23:01 07:01 Intake Total 125 ml 75 ml 0 ml Output Total 750 ml Balance 125 ml -675 ml 0 ml CARMITA NERI MD Dec 18, 2018 17:38
[2018-12-18] MEDS: INSULIN GLARGINE 300 UNITS/3 ML INSULN.PEN. SQ SCH (21:00)
[2018-12-18] MEDS: FAMOTIDINE 20 MG/2 ML VIAL IVP SCH (21:18)
[2018-12-19] VITALS (15 sets, daily range): BP systolic 109–183; BP diastolic 57–92
[2018-12-19] MEDS: IV 1/2 NORMAL SALINE 1,000 ML IV SCH ×2 (01:46→12:20)
[2018-12-19] MEDS: MORPHINE SULFATE 4 MG/ML VIAL. IV PRN ×7 (01:46→22:05)
[2018-12-19] MEDS: TIGECYCLINE 50 MG in IV DEXTROSE 5% 50 ML IV SCH (02:44)
[2018-12-19 05:12] LABS: BASO % 0 % (0-3); EOS # 0.1 x10^3/uL (0.0-0.7); EOS % 1 % (0-3); HEMATOCRIT 27.9 % (36.0-47.0); LYMPH # 2.5 x10^3/uL (1.0-4.8); LYMPH % 22 % (24-48); MEAN CORPUSCULAR HEMOGLOBIN 29 pg (25-35); MEAN CORPUSCULAR HGB CONC 32 g/dL (31-37); MEAN CORPUSCULAR VOLUME 90 fL (79-100); MONO # 0.9 x10^3/uL (0.0-1.1); MONO % 8 % (0-9); NEUT # 7.8 x10^3uL (1.8-7.7); NEUT % 69 % (31-73); PLATELET COUNT 289 x10^3/uL (140-400); WHITE BLOOD COUNT 11.3 x10^3/uL (4.0-11.0)
[2018-12-19 05:36] LABS: ALBUMIN 1.5 g/dL (3.4-5.0); ALBUMIN/GLOBULIN RATIO 0.4 (1.0-1.7); CALCIUM 7.5 mg/dL (8.5-10.1); CREATININE 0.9 mg/dL (0.6-1.0); GFR 61.2; POTASSIUM 4.1 mmol/L (3.5-5.1); TOTAL BILIRUBIN 1.7 mg/dL (0.2-1.0); TOTAL PROTEIN 5.1 g/dL (6.4-8.2)
[2018-12-19] MEDS: PIPERACILLIN/TAZOBACTAM 3.375 GM in IV NORMAL SALINE 50ML 50 ML IV SCH ×3 (07:00→16:58)
--- NOTE | 2018-12-19 07:02 | PDOC ---
Infectious Disease Note Subjective Subjective Feeling better. Actually slept some. No Nausea and less SOA Pain better. No itch Denies V/D/F/C/S/ ROS ROS o/w neg Vital Sign Vital Signs Vital Signs Date Time Temp Pulse Resp B/P (MAP) Pulse Ox O2 Delivery O2 Flow Rate FiO2 12/19/18 06:00 83 16 134/63 (86) 100 Nasal Cannula 2.0 12/19/18 04:00 98.9 98.9 Physical Exam PHYSICAL EXAM GENERAL: Propped up in bed, alert, relaxed appearance - looks better HEENT: Oral cavity clear, dentures LUNGS: Decreased breath sounds. nonlabored Left chest tube in place HEART: S1, S2 with no gallops or murmurs. ABDOMEN: Soft, obese. Bowel sounds present. LLQ wound packed - some brown stained drainage, Carlos. : [place] EXTREMITIES: Trace edema, no cyanosis. Chronic venous stasis changes present. LUE edema, shoulder brace in place NEUROLOGIC: Alert, responds appropriately Port & LIJ clean SKIN: - no rash Labs Lab Laboratory Tests Test 12/18/18 07:57 12/18/18 21:46 12/19/18 05:00 Glucose (Fingerstick) 151 mg/dL (70-99) 121 mg/dL (70-99) White Blood Count 11.3 x10^3/uL (4.0-11.0) Red Blood Count 3.10 x10^6/uL (3.50-5.40) Hemoglobin 9.0 g/dL (12.0-15.5) Hematocrit 27.9 % (36.0-47.0) Mean Corpuscular Volume 90 fL (79-100) Mean Corpuscular Hemoglobin 29 pg (25-35) Mean Corpuscular Hemoglobin Concent 32 g/dL (31-37) Red Cell Distribution Width 15.0 % (11.5-14.5) Platelet Count 289 x10^3/uL (140-400) Neutrophils (%) (Auto) 69 % (31-73) Lymphocytes (%) (Auto) 22 % (24-48) Monocytes (%) (Auto) 8 % (0-9) Eosinophils (%) (Auto) 1 % (0-3) Basophils (%) (Auto) 0 % (0-3) Neutrophils # (Auto) 7.8 x10^3uL (1.8-7.7) Lymphocytes # (Auto) 2.5 x10^3/uL (1.0-4.8) Monocytes # (Auto) 0.9 x10^3/uL (0.0-1.1) Eosinophils # (Auto) 0.1 x10^3/uL (0.0-0.7) Basophils # (Auto) 0.0 x10^3/uL (0.0-0.2) Sodium Level 141 mmol/L (136-145) Potassium Level 4.1 mmol/L (3.5-5.1) Chloride Level 104 mmol/L (98-107) Carbon Dioxide Level 32 mmol/L (21-32) Anion Gap 5 (6-14) Blood Urea Nitrogen 29 mg/dL (7-20) Creatinine 0.9 mg/dL (0.6-1.0) Estimated GFR (Cockcroft-Gault) 61.2 BUN/Creatinine Ratio 32 (6-20) Glucose Level 142 mg/dL (70-99) Calcium Level 7.5 mg/dL (8.5-10.1) Total Bilirubin 1.7 mg/dL (0.2-1.0) Aspartate Amino Transf (AST/SGOT) 36 U/L (15-37) Alanine Aminotransferase (ALT/SGPT) 21 U/L (14-59) Alkaline Phosphatase 185 U/L (46-116) Total Protein 5.1 g/dL (6.4-8.2) Albumin 1.5 g/dL (3.4-5.0) Albumin/Globulin Ratio 0.4 (1.0-1.7) Micro Microbiology 12/12/18 - Final, Complete 12/12/18 - Final, Complete 12/12/18 - Final, Complete 12/12/18 Gram Stain Evaluation - Final, Complete 12/12/18 Sputum Culture - Final, Complete 12/12/18 Sputum Result 1 - Final, Complete 12/12/18 Sputum Result 2 - Final, Complete 12/12/18 Anaerobic/Aerobic Culture, Resulted Pending 12/12/18 Anaerobic Culture Result 1 (MILLY), Resulted Pending 12/12/18 Aerobic Culture - Final, Resulted 12/12/18 Aerobic Culture Result 1 (MILLY) - Final, Resulted 12/12/18 Aerobic Culture Result 2 (MILLY) - Final, Resulted 12/12/18 Antimicrobic Susceptibility - Final, Resulted 12/12/18 Gram Stain - Final, Resulted 12/12/18 Gram Stain Result 1 (MILLY) - Final, Resulted 12/12/18 Gram Stain Result 2 (MILLY) - Final, Resulted Objective Assessment Leukocytosis - ? 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 Proteus (R cipro, tetra & I Levaquin) and Enterococcus-PCN sensitive. Nursing reports Dr. Lombardi removed 750 ml of stool from abd wound 12/17. Colon mass s/p biopsy, Path showed acute inflammation and granulation tissue consistent with abscess, 12/12. Septic shock, .Source Abdominal wall abscess, improved Acute resp failure postop ;sputum yeast + likely contamination History of multiple allergies Obesity. Diabetes. Right upper extremity peripheral neuropathy. Left upper extremity fracture. Ortho evaluated pt. + swelling - U/S - neg Hyponatremia. Protein-calorie malnutrition, present on admission. Abnormal liver function tests Plan Plan of Care D/c Tigecycline as has tolerated Zosyn desensitization Cont Micafungin 12/17 Monitor labs wound management per Gen surgery D/w RN D/w CARMINA Mir MD Dec 19, 2018 07:02
[2018-12-19] MEDS: INSULIN LISPRO 300 UNITS/3 ML INSULN.PEN. SQ SCH ×4 (08:00→21:00)
--- NOTE | 2018-12-19 08:44 | PDOC ---
PULMONARY PROGRESS NOTES Subjective extubated 12/13 afternoon NO MORE RENEE Vitals Vital Signs Date Time Temp Pulse Resp B/P (MAP) Pulse Ox O2 Delivery O2 Flow Rate FiO2 12/19/18 08:00 Nasal Cannula 2.0 12/19/18 07:28 100 12/19/18 06:00 83 16 134/63 (86) 12/19/18 04:00 98.9 98.9 ROS: No Chest Pain General: Alert, No acute distress HEENT: Other (nc at perrl ) Lungs: Crackles Cardiovascular: S1, S2 Abdomen: Soft, Non-tender, Other (obese, wound covered with dressing) Extremities: Other (trace edema) Skin: Warm Labs Laboratory Tests Test 12/17/18 12:04 12/17/18 17:01 12/17/18 21:04 12/18/18 05:15 Glucose (Fingerstick) 230 mg/dL (70-99) 210 mg/dL (70-99) 184 mg/dL (70-99) White Blood Count 10.8 x10^3/uL (4.0-11.0) Red Blood Count 3.11 x10^6/uL (3.50-5.40) Hemoglobin 9.0 g/dL (12.0-15.5) Hematocrit 28.0 % (36.0-47.0) Mean Corpuscular Volume 90 fL (79-100) Mean Corpuscular Hemoglobin 29 pg (25-35) Mean Corpuscular Hemoglobin Concent 32 g/dL (31-37) Red Cell Distribution Width 15.0 % (11.5-14.5) Platelet Count 310 x10^3/uL (140-400) Neutrophils (%) (Auto) 74 % (31-73) Lymphocytes (%) (Auto) 18 % (24-48) Monocytes (%) (Auto) 7 % (0-9) Eosinophils (%) (Auto) 0 % (0-3) Basophils (%) (Auto) 0 % (0-3) Neutrophils # (Auto) 8.0 x10^3uL (1.8-7.7) Lymphocytes # (Auto) 1.9 x10^3/uL (1.0-4.8) Monocytes # (Auto) 0.8 x10^3/uL (0.0-1.1) Eosinophils # (Auto) 0.0 x10^3/uL (0.0-0.7) Basophils # (Auto) 0.0 x10^3/uL (0.0-0.2) Sodium Level 141 mmol/L (136-145) Potassium Level 3.8 mmol/L (3.5-5.1) Chloride Level 104 mmol/L (98-107) Carbon Dioxide Level 31 mmol/L (21-32) Anion Gap 6 (6-14) Blood Urea Nitrogen 36 mg/dL (7-20) Creatinine 0.9 mg/dL (0.6-1.0) Estimated GFR (Cockcroft-Gault) 61.2 BUN/Creatinine Ratio 40 (6-20) Glucose Level 172 mg/dL (70-99) Calcium Level 7.9 mg/dL (8.5-10.1) Magnesium Level 1.9 mg/dL (1.8-2.4) Total Bilirubin 1.1 mg/dL (0.2-1.0) Aspartate Amino Transf (AST/SGOT) 23 U/L (15-37) Alanine Aminotransferase (ALT/SGPT) 20 U/L (14-59) Alkaline Phosphatase 187 U/L (46-116) Total Protein 5.4 g/dL (6.4-8.2) Albumin 1.6 g/dL (3.4-5.0) Albumin/Globulin Ratio 0.4 (1.0-1.7) Test 12/18/18 07:57 12/18/18 21:46 12/19/18 05:00 Glucose (Fingerstick) 151 mg/dL (70-99) 121 mg/dL (70-99) White Blood Count 11.3 x10^3/uL (4.0-11.0) Red Blood Count 3.10 x10^6/uL (3.50-5.40) Hemoglobin 9.0 g/dL (12.0-15.5) Hematocrit 27.9 % (36.0-47.0) Mean Corpuscular Volume 90 fL (79-100) Mean Corpuscular Hemoglobin 29 pg (25-35) Mean Corpuscular Hemoglobin Concent 32 g/dL (31-37) Red Cell Distribution Width 15.0 % (11.5-14.5) Platelet Count 289 x10^3/uL (140-400) Neutrophils (%) (Auto) 69 % (31-73) Lymphocytes (%) (Auto) 22 % (24-48) Monocytes (%) (Auto) 8 % (0-9) Eosinophils (%) (Auto) 1 % (0-3) Basophils (%) (Auto) 0 % (0-3) Neutrophils # (Auto) 7.8 x10^3uL (1.8-7.7) Lymphocytes # (Auto) 2.5 x10^3/uL (1.0-4.8) Monocytes # (Auto) 0.9 x10^3/uL (0.0-1.1) Eosinophils # (Auto) 0.1 x10^3/uL (0.0-0.7) Basophils # (Auto) 0.0 x10^3/uL (0.0-0.2) Sodium Level 141 mmol/L (136-145) Potassium Level 4.1 mmol/L (3.5-5.1) Chloride Level 104 mmol/L (98-107) Carbon Dioxide Level 32 mmol/L (21-32) Anion Gap 5 (6-14) Blood Urea Nitrogen 29 mg/dL (7-20) Creatinine 0.9 mg/dL (0.6-1.0) Estimated GFR (Cockcroft-Gault) 61.2 BUN/Creatinine Ratio 32 (6-20) Glucose Level 142 mg/dL (70-99) Calcium Level 7.5 mg/dL (8.5-10.1) Total Bilirubin 1.7 mg/dL (0.2-1.0) Aspartate Amino Transf (AST/SGOT) 36 U/L (15-37) Alanine Aminotransferase (ALT/SGPT) 21 U/L (14-59) Alkaline Phosphatase 185 U/L (46-116) Total Protein 5.1 g/dL (6.4-8.2) Albumin 1.5 g/dL (3.4-5.0) Albumin/Globulin Ratio 0.4 (1.0-1.7) Laboratory Tests Test 12/18/18 21:46 12/19/18 05:00 Glucose (Fingerstick) 121 mg/dL (70-99) White Blood Count 11.3 x10^3/uL (4.0-11.0) Red Blood Count 3.10 x10^6/uL (3.50-5.40) Hemoglobin 9.0 g/dL (12.0-15.5) Hematocrit 27.9 % (36.0-47.0) Mean Corpuscular Volume 90 fL (79-100) Mean Corpuscular Hemoglobin 29 pg (25-35) Mean Corpuscular Hemoglobin Concent 32 g/dL (31-37) Red Cell Distribution Width 15.0 % (11.5-14.5) Platelet Count 289 x10^3/uL (140-400) Neutrophils (%) (Auto) 69 % (31-73) Lymphocytes (%) (Auto) 22 % (24-48) Monocytes (%) (Auto) 8 % (0-9) Eosinophils (%) (Auto) 1 % (0-3) Basophils (%) (Auto) 0 % (0-3) Neutrophils # (Auto) 7.8 x10^3uL (1.8-7.7) Lymphocytes # (Auto) 2.5 x10^3/uL (1.0-4.8) Monocytes # (Auto) 0.9 x10^3/uL (0.0-1.1) Eosinophils # (Auto) 0.1 x10^3/uL (0.0-0.7) Basophils # (Auto) 0.0 x10^3/uL (0.0-0.2) Sodium Level 141 mmol/L (136-145) Potassium Level 4.1 mmol/L (3.5-5.1) Chloride Level 104 mmol/L (98-107) Carbon Dioxide Level 32 mmol/L (21-32) Anion Gap 5 (6-14) Blood Urea Nitrogen 29 mg/dL (7-20) Creatinine 0.9 mg/dL (0.6-1.0) Estimated GFR (Cockcroft-Gault) 61.2 BUN/Creatinine Ratio 32 (6-20) Glucose Level 142 mg/dL (70-99) Calcium Level 7.5 mg/dL (8.5-10.1) Total Bilirubin 1.7 mg/dL (0.2-1.0) Aspartate Amino Transf (AST/SGOT) 36 U/L (15-37) Alanine Aminotransferase (ALT/SGPT) 21 U/L (14-59) Alkaline Phosphatase 185 U/L (46-116) Total Protein 5.1 g/dL (6.4-8.2) Albumin 1.5 g/dL (3.4-5.0) Albumin/Globulin Ratio 0.4 (1.0-1.7) Medications Active Scripts Medications Dose Route/Sig Max Daily Dose Days Date Category Potassium Chloride 20 Meq Tablet.er 20 Meq PO TIDWMEALS 12/20/16 Reported Roxicodone (Oxycodone HCl) 5 Mg Tablet 5 Mg PO PRN Q4HRS PRN 12/20/16 Reported Nystatin 1 Each Powder.ea. 1 Each MC BID 12/20/16 Reported Levemir (Insulin Detemir) 100 Unit/1 Ml Vial 20 Unit SQ HS 12/20/16 Reported Novolog (Insulin Aspart) 100 Unit/1 Ml Cartridge 0 SQ QIDACHS 12/20/16 Reported Guaifenesin 600 Mg Tablet.er 600 Mg PO BID 12/20/16 Reported Bisacodyl 10 Mg Supp.rect 10 Mg RC PRN DAILY PRN 12/20/16 Reported Alprazolam 1 Mg Tablet 1 Tab PO TID PRN 12/20/16 Reported Acetaminophen Supp (Acetaminophen) 650 Mg Supp.rect 650 Mg RC PRN Q6HRS PRN 12/20/16 Reported Proair Hfa Inhaler (Albuterol Sulfate) 8.5 Gm Hfa.aer.ad 1 Puff INH PRN Q6HRS PRN 06/22/16 Reported Levothyroxine Sodium 75 Mcg Tablet 1 Tab PO DAILY 04/20/15 Reported Impression . 1. Acute respiratory failure secondary to combination of septic and hypovolemic shock. resolved, extubated 12/13 2. Shock secondary to combination of hypovolemia and septic shock. much improved. 3. 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 4. Acute renal failure with metabolic acidosis, improving. 5. Severe protein-calorie malnutrition. 6. No significant history of tobacco use. 7. Disimpacted left humeral fracture. 8. SPONTANEOUS L PTX S/P CHEST TUBE 12/18 NO AIR LEAK Plan . NO AIR LEAK ON CHEST TUBE WILL CONTINUE THE SAME CXR WAS REVIEWED ANTIBX PER ID [id number] CONTINUE SUPPORT DVT AND GI PROPH DEAN LAM MD Dec 19, 2018 08:44
[2018-12-19] MEDS: NYSTATIN TOPICAL POWDER 15GM BOTTLE. TP SCH ×2 (09:00→21:00)
[2018-12-19 10:39] LABS: MAGNESIUM 1.7 mg/dL (1.8-2.4); PHOSPHORUS 2.5 mg/dL (2.6-4.7)
--- NOTE | 2018-12-19 10:40 | PDOC ---
SURGICAL PROGRESS NOTE Subjective has her eyes closed, responds to questions at bedside Vital Signs Vital Signs Date Time Temp Pulse Resp B/P (MAP) Pulse Ox O2 Delivery O2 Flow Rate FiO2 12/19/18 10:21 100 Nasal Cannula 2.0 12/19/18 06:00 83 16 134/63 (86) 12/19/18 04:00 98.9 98.9 I&O Intake and Output 12/19/18 07:01 Intake Total 775.5 ml Output Total 1925 ml Balance -1149.5 ml Intake Oral 0 ml IV Total 775.5 ml Output Urine Total 1775 ml Chest Tube Drainage Total 150 ml PATIENT HAS A CARROLL: Yes (needed for accurate I and O and patient non ambulatory) General: Alert Abdomen: Other (dressing intact) Labs Laboratory Tests Test 12/17/18 12:04 12/17/18 17:01 12/17/18 21:04 12/18/18 05:15 Glucose (Fingerstick) 230 mg/dL (70-99) 210 mg/dL (70-99) 184 mg/dL (70-99) White Blood Count 10.8 x10^3/uL (4.0-11.0) Red Blood Count 3.11 x10^6/uL (3.50-5.40) Hemoglobin 9.0 g/dL (12.0-15.5) Hematocrit 28.0 % (36.0-47.0) Mean Corpuscular Volume 90 fL (79-100) Mean Corpuscular Hemoglobin 29 pg (25-35) Mean Corpuscular Hemoglobin Concent 32 g/dL (31-37) Red Cell Distribution Width 15.0 % (11.5-14.5) Platelet Count 310 x10^3/uL (140-400) Neutrophils (%) (Auto) 74 % (31-73) Lymphocytes (%) (Auto) 18 % (24-48) Monocytes (%) (Auto) 7 % (0-9) Eosinophils (%) (Auto) 0 % (0-3) Basophils (%) (Auto) 0 % (0-3) Neutrophils # (Auto) 8.0 x10^3uL (1.8-7.7) Lymphocytes # (Auto) 1.9 x10^3/uL (1.0-4.8) Monocytes # (Auto) 0.8 x10^3/uL (0.0-1.1) Eosinophils # (Auto) 0.0 x10^3/uL (0.0-0.7) Basophils # (Auto) 0.0 x10^3/uL (0.0-0.2) Sodium Level 141 mmol/L (136-145) Potassium Level 3.8 mmol/L (3.5-5.1) Chloride Level 104 mmol/L (98-107) Carbon Dioxide Level 31 mmol/L (21-32) Anion Gap 6 (6-14) Blood Urea Nitrogen 36 mg/dL (7-20) Creatinine 0.9 mg/dL (0.6-1.0) Estimated GFR (Cockcroft-Gault) 61.2 BUN/Creatinine Ratio 40 (6-20) Glucose Level 172 mg/dL (70-99) Calcium Level 7.9 mg/dL (8.5-10.1) Magnesium Level 1.9 mg/dL (1.8-2.4) Total Bilirubin 1.1 mg/dL (0.2-1.0) Aspartate Amino Transf (AST/SGOT) 23 U/L (15-37) Alanine Aminotransferase (ALT/SGPT) 20 U/L (14-59) Alkaline Phosphatase 187 U/L (46-116) Total Protein 5.4 g/dL (6.4-8.2) Albumin 1.6 g/dL (3.4-5.0) Albumin/Globulin Ratio 0.4 (1.0-1.7) Test 12/18/18 07:57 12/18/18 21:46 12/19/18 05:00 Glucose (Fingerstick) 151 mg/dL (70-99) 121 mg/dL (70-99) White Blood Count 11.3 x10^3/uL (4.0-11.0) Red Blood Count 3.10 x10^6/uL (3.50-5.40) Hemoglobin 9.0 g/dL (12.0-15.5) Hematocrit 27.9 % (36.0-47.0) Mean Corpuscular Volume 90 fL (79-100) Mean Corpuscular Hemoglobin 29 pg (25-35) Mean Corpuscular Hemoglobin Concent 32 g/dL (31-37) Red Cell Distribution Width 15.0 % (11.5-14.5) Platelet Count 289 x10^3/uL (140-400) Neutrophils (%) (Auto) 69 % (31-73) Lymphocytes (%) (Auto) 22 % (24-48) Monocytes (%) (Auto) 8 % (0-9) Eosinophils (%) (Auto) 1 % (0-3) Basophils (%) (Auto) 0 % (0-3) Neutrophils # (Auto) 7.8 x10^3uL (1.8-7.7) Lymphocytes # (Auto) 2.5 x10^3/uL (1.0-4.8) Monocytes # (Auto) 0.9 x10^3/uL (0.0-1.1) Eosinophils # (Auto) 0.1 x10^3/uL (0.0-0.7) Basophils # (Auto) 0.0 x10^3/uL (0.0-0.2) Sodium Level 141 mmol/L (136-145) Potassium Level 4.1 mmol/L (3.5-5.1) Chloride Level 104 mmol/L (98-107) Carbon Dioxide Level 32 mmol/L (21-32) Anion Gap 5 (6-14) Blood Urea Nitrogen 29 mg/dL (7-20) Creatinine 0.9 mg/dL (0.6-1.0) Estimated GFR (Cockcroft-Gault) 61.2 BUN/Creatinine Ratio 32 (6-20) Glucose Level 142 mg/dL (70-99) Calcium Level 7.5 mg/dL (8.5-10.1) Total Bilirubin 1.7 mg/dL (0.2-1.0) Aspartate Amino Transf (AST/SGOT) 36 U/L (15-37) Alanine Aminotransferase (ALT/SGPT) 21 U/L (14-59) Alkaline Phosphatase 185 U/L (46-116) Total Protein 5.1 g/dL (6.4-8.2) Albumin 1.5 g/dL (3.4-5.0) Albumin/Globulin Ratio 0.4 (1.0-1.7) Laboratory Tests Test 12/18/18 21:46 12/19/18 05:00 Glucose (Fingerstick) 121 mg/dL (70-99) White Blood Count 11.3 x10^3/uL (4.0-11.0) Red Blood Count 3.10 x10^6/uL (3.50-5.40) Hemoglobin 9.0 g/dL (12.0-15.5) Hematocrit 27.9 % (36.0-47.0) Mean Corpuscular Volume 90 fL (79-100) Mean Corpuscular Hemoglobin 29 pg (25-35) Mean Corpuscular Hemoglobin Concent 32 g/dL (31-37) Red Cell Distribution Width 15.0 % (11.5-14.5) Platelet Count 289 x10^3/uL (140-400) Neutrophils (%) (Auto) 69 % (31-73) Lymphocytes (%) (Auto) 22 % (24-48) Monocytes (%) (Auto) 8 % (0-9) Eosinophils (%) (Auto) 1 % (0-3) Basophils (%) (Auto) 0 % (0-3) Neutrophils # (Auto) 7.8 x10^3uL (1.8-7.7) Lymphocytes # (Auto) 2.5 x10^3/uL (1.0-4.8) Monocytes # (Auto) 0.9 x10^3/uL (0.0-1.1) Eosinophils # (Auto) 0.1 x10^3/uL (0.0-0.7) Basophils # (Auto) 0.0 x10^3/uL (0.0-0.2) Sodium Level 141 mmol/L (136-145) Potassium Level 4.1 mmol/L (3.5-5.1) Chloride Level 104 mmol/L (98-107) Carbon Dioxide Level 32 mmol/L (21-32) Anion Gap 5 (6-14) Blood Urea Nitrogen 29 mg/dL (7-20) Creatinine 0.9 mg/dL (0.6-1.0) Estimated GFR (Cockcroft-Gault) 61.2 BUN/Creatinine Ratio 32 (6-20) Glucose Level 142 mg/dL (70-99) Calcium Level 7.5 mg/dL (8.5-10.1) Total Bilirubin 1.7 mg/dL (0.2-1.0) Aspartate Amino Transf (AST/SGOT) 36 U/L (15-37) Alanine Aminotransferase (ALT/SGPT) 21 U/L (14-59) Alkaline Phosphatase 185 U/L (46-116) Total Protein 5.1 g/dL (6.4-8.2) Albumin 1.5 g/dL (3.4-5.0) Albumin/Globulin Ratio 0.4 (1.0-1.7) Assessment/Plan morbid obesity 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
--- NOTE | 2018-12-19 10:46 | PDOC ---
PROGRESS NOTES Chief Complaint Chief Complaint LLQ abscess, colocutaneous fistula with perforation morbid obesity, BMI 60 diabetes 2 JACOB, NOS Septic shock on admit, better weakness and debilty acute on chronic pain, fibromyalgia pneumothorax - New left side pneumothorax with 39 mm in pleural separation. There is worsened aeration of the left lower lobe suggestive of atelectasis History of Present Illness History of Present Illness 73-year-old female SNF resident w/ PMHx DM, HTN transferred from [facility] 2/2 septic shock from left-sided abdominal wound. Now in the ICU is hypotensive with a map of 56-59. Started on Levaquin and Flagyl empirically. She was found to have a colon perforation and went to OR for colotomy repair, biopsy, and wide area of debridement and returned to ICU on ventilator to recover from surgery. 12/13: Overnight became hyperglycemic. given 10u lispro and 10u lantus, still elevated glucose this morning. BUN returned > 110 this morning, making urine, successfully extubated. Insulin GTT started 12/14: Gap closed yesterday, glucose came down below 200 on multiple checks. She is feeling very weak. still on levophed. Nephrology consulted for uremia. 12/15 - 12/18: Transferred to floor where she was found with apical left PTX, s/p chest tube placement. On Tigecycline and levaquin and micafungin Transferred back to ICU yesterday for zosyn desenitization and tolerated all doses well, no itching, no rash. She c/o hunger and left arm pain and right facial pain (scratched). no air leak from chest tube Plan: LLQ abscess, colocutaneous fistula with perforation - ID on board - tigecycline Morbid obesity Diabetes - Will cont insulin regimen. She has not had nutrition since 6 days ago , should start TPN now JACOB - IVF, appreciate nephrology, bicarb infusion, would like to avoid dialysis Septic shock - IVF and antibiotics tired and weak. She is recovering Left arm fracture - immobilized. PT/OT PTX - chest tube drainage minimal, no air leak Vitals Vitals Vital Signs Date Time Temp Pulse Resp B/P (MAP) Pulse Ox O2 Delivery O2 Flow Rate FiO2 12/19/18 10:21 100 Nasal Cannula 2.0 12/19/18 06:00 83 16 134/63 (86) 12/19/18 04:00 98.9 98.9 Physical Exam Physical Exam GENERAL: Propped up in bed, alert, relaxed appearance - looks better HEENT: Oral cavity clear, dentures LUNGS: Decreased breath sounds. nonlabored Left chest tube in place HEART: S1, S2 with no gallops or murmurs. ABDOMEN: Soft, obese. Bowel sounds present. LLQ wound packed - some brown stained drainage, Carlos. : [place] EXTREMITIES: Trace edema, no cyanosis. Chronic venous stasis changes present. LUE edema, shoulder brace in place NEUROLOGIC: Alert, responds appropriately Port & LIJ clean SKIN: - no rash General: mild distress Heart: Regular rate Lungs: Crackles Abdomen: Normal bowel sounds Extremities: No clubbing, Normal pulses Skin: No significant lesion, Other (dressing in place, drain in place) Labs LABS Laboratory Tests Test 12/18/18 21:46 12/19/18 05:00 Glucose (Fingerstick) 121 mg/dL (70-99) White Blood Count 11.3 x10^3/uL (4.0-11.0) Red Blood Count 3.10 x10^6/uL (3.50-5.40) Hemoglobin 9.0 g/dL (12.0-15.5) Hematocrit 27.9 % (36.0-47.0) Mean Corpuscular Volume 90 fL (79-100) Mean Corpuscular Hemoglobin 29 pg (25-35) Mean Corpuscular Hemoglobin Concent 32 g/dL (31-37) Red Cell Distribution Width 15.0 % (11.5-14.5) Platelet Count 289 x10^3/uL (140-400) Neutrophils (%) (Auto) 69 % (31-73) Lymphocytes (%) (Auto) 22 % (24-48) Monocytes (%) (Auto) 8 % (0-9) Eosinophils (%) (Auto) 1 % (0-3) Basophils (%) (Auto) 0 % (0-3) Neutrophils # (Auto) 7.8 x10^3uL (1.8-7.7) Lymphocytes # (Auto) 2.5 x10^3/uL (1.0-4.8) Monocytes # (Auto) 0.9 x10^3/uL (0.0-1.1) Eosinophils # (Auto) 0.1 x10^3/uL (0.0-0.7) Basophils # (Auto) 0.0 x10^3/uL (0.0-0.2) Sodium Level 141 mmol/L (136-145) Potassium Level 4.1 mmol/L (3.5-5.1) Chloride Level 104 mmol/L (98-107) Carbon Dioxide Level 32 mmol/L (21-32) Anion Gap 5 (6-14) Blood Urea Nitrogen 29 mg/dL (7-20) Creatinine 0.9 mg/dL (0.6-1.0) Estimated GFR (Cockcroft-Gault) 61.2 BUN/Creatinine Ratio 32 (6-20) Glucose Level 142 mg/dL (70-99) Calcium Level 7.5 mg/dL (8.5-10.1) Total Bilirubin 1.7 mg/dL (0.2-1.0) Aspartate Amino Transf (AST/SGOT) 36 U/L (15-37) Alanine Aminotransferase (ALT/SGPT) 21 U/L (14-59) Alkaline Phosphatase 185 U/L (46-116) Total Protein 5.1 g/dL (6.4-8.2) Albumin 1.5 g/dL (3.4-5.0) Albumin/Globulin Ratio 0.4 (1.0-1.7) Comment Review of Relevant I have reviewed the following items leif (where applicable) has been applied. Labs Laboratory Tests Test 12/17/18 12:04 12/17/18 17:01 12/17/18 21:04 12/18/18 05:15 Glucose (Fingerstick) 230 mg/dL (70-99) 210 mg/dL (70-99) 184 mg/dL (70-99) White Blood Count 10.8 x10^3/uL (4.0-11.0) Red Blood Count 3.11 x10^6/uL (3.50-5.40) Hemoglobin 9.0 g/dL (12.0-15.5) Hematocrit 28.0 % (36.0-47.0) Mean Corpuscular Volume 90 fL (79-100) Mean Corpuscular Hemoglobin 29 pg (25-35) Mean Corpuscular Hemoglobin Concent 32 g/dL (31-37) Red Cell Distribution Width 15.0 % (11.5-14.5) Platelet Count 310 x10^3/uL (140-400) Neutrophils (%) (Auto) 74 % (31-73) Lymphocytes (%) (Auto) 18 % (24-48) Monocytes (%) (Auto) 7 % (0-9) Eosinophils (%) (Auto) 0 % (0-3) Basophils (%) (Auto) 0 % (0-3) Neutrophils # (Auto) 8.0 x10^3uL (1.8-7.7) Lymphocytes # (Auto) 1.9 x10^3/uL (1.0-4.8) Monocytes # (Auto) 0.8 x10^3/uL (0.0-1.1) Eosinophils # (Auto) 0.0 x10^3/uL (0.0-0.7) Basophils # (Auto) 0.0 x10^3/uL (0.0-0.2) Sodium Level 141 mmol/L (136-145) Potassium Level 3.8 mmol/L (3.5-5.1) Chloride Level 104 mmol/L (98-107) Carbon Dioxide Level 31 mmol/L (21-32) Anion Gap 6 (6-14) Blood Urea Nitrogen 36 mg/dL (7-20) Creatinine 0.9 mg/dL (0.6-1.0) Estimated GFR (Cockcroft-Gault) 61.2 BUN/Creatinine Ratio 40 (6-20) Glucose Level 172 mg/dL (70-99) Calcium Level 7.9 mg/dL (8.5-10.1) Magnesium Level 1.9 mg/dL (1.8-2.4) Total Bilirubin 1.1 mg/dL (0.2-1.0) Aspartate Amino Transf (AST/SGOT) 23 U/L (15-37) Alanine Aminotransferase (ALT/SGPT) 20 U/L (14-59) Alkaline Phosphatase 187 U/L (46-116) Total Protein 5.4 g/dL (6.4-8.2) Albumin 1.6 g/dL (3.4-5.0) Albumin/Globulin Ratio 0.4 (1.0-1.7) Test 12/18/18 07:57 12/18/18 21:46 1/29/19 05:00 Glucose (Fingerstick) 151 mg/dL (70-99) 121 mg/dL (70-99) White Blood Count 11.3 x10^3/uL (4.0-11.0) Red Blood Count 3.10 x10^6/uL (3.50-5.40) Hemoglobin 9.0 g/dL (12.0-15.5) Hematocrit 27.9 % (36.0-47.0) Mean Corpuscular Volume 90 fL (79-100) Mean Corpuscular Hemoglobin 29 pg (25-35) Mean Corpuscular Hemoglobin Concent 32 g/dL (31-37) Red Cell Distribution Width 15.0 % (11.5-14.5) Platelet Count 289 x10^3/uL (140-400) Neutrophils (%) (Auto) 69 % (31-73) Lymphocytes (%) (Auto) 22 % (24-48) Monocytes (%) (Auto) 8 % (0-9) Eosinophils (%) (Auto) 1 % (0-3) Basophils (%) (Auto) 0 % (0-3) Neutrophils # (Auto) 7.8 x10^3uL (1.8-7.7) Lymphocytes # (Auto) 2.5 x10^3/uL (1.0-4.8) Monocytes # (Auto) 0.9 x10^3/uL (0.0-1.1) Eosinophils # (Auto) 0.1 x10^3/uL (0.0-0.7) Basophils # (Auto) 0.0 x10^3/uL (0.0-0.2) Sodium Level 141 mmol/L (136-145) Potassium Level 4.1 mmol/L (3.5-5.1) Chloride Level 104 mmol/L (98-107) Carbon Dioxide Level 32 mmol/L (21-32) Anion Gap 5 (6-14) Blood Urea Nitrogen 29 mg/dL (7-20) Creatinine 0.9 mg/dL (0.6-1.0) Estimated GFR (Cockcroft-Gault) 61.2 BUN/Creatinine Ratio 32 (6-20) Glucose Level 142 mg/dL (70-99) Calcium Level 7.5 mg/dL (8.5-10.1) Total Bilirubin 1.7 mg/dL (0.2-1.0) Aspartate Amino Transf (AST/SGOT) 36 U/L (15-37) Alanine Aminotransferase (ALT/SGPT) 21 U/L (14-59) Alkaline Phosphatase 185 U/L (46-116) Total Protein 5.1 g/dL (6.4-8.2) Albumin 1.5 g/dL (3.4-5.0) Albumin/Globulin Ratio 0.4 (1.0-1.7) Laboratory Tests Test 12/18/18 21:46 12/19/18 05:00 Glucose (Fingerstick) 121 mg/dL (70-99) White Blood Count 11.3 x10^3/uL (4.0-11.0) Red Blood Count 3.10 x10^6/uL (3.50-5.40) Hemoglobin 9.0 g/dL (12.0-15.5) Hematocrit 27.9 % (36.0-47.0) Mean Corpuscular Volume 90 fL (79-100) Mean Corpuscular Hemoglobin 29 pg (25-35) Mean Corpuscular Hemoglobin Concent 32 g/dL (31-37) Red Cell Distribution Width 15.0 % (11.5-14.5) Platelet Count 289 x10^3/uL (140-400) Neutrophils (%) (Auto) 69 % (31-73) Lymphocytes (%) (Auto) 22 % (24-48) Monocytes (%) (Auto) 8 % (0-9) Eosinophils (%) (Auto) 1 % (0-3) Basophils (%) (Auto) 0 % (0-3) Neutrophils # (Auto) 7.8 x10^3uL (1.8-7.7) Lymphocytes # (Auto) 2.5 x10^3/uL (1.0-4.8) Monocytes # (Auto) 0.9 x10^3/uL (0.0-1.1) Eosinophils # (Auto) 0.1 x10^3/uL (0.0-0.7) Basophils # (Auto) 0.0 x10^3/uL (0.0-0.2) Sodium Level 141 mmol/L (136-145) Potassium Level 4.1 mmol/L (3.5-5.1) Chloride Level 104 mmol/L (98-107) Carbon Dioxide Level 32 mmol/L (21-32) Anion Gap 5 (6-14) Blood Urea Nitrogen 29 mg/dL (7-20) Creatinine 0.9 mg/dL (0.6-1.0) Estimated GFR (Cockcroft-Gault) 61.2 BUN/Creatinine Ratio 32 (6-20) Glucose Level 142 mg/dL (70-99) Calcium Level 7.5 mg/dL (8.5-10.1) Total Bilirubin 1.7 mg/dL (0.2-1.0) Aspartate Amino Transf (AST/SGOT) 36 U/L (15-37) Alanine Aminotransferase (ALT/SGPT) 21 U/L (14-59) Alkaline Phosphatase 185 U/L (46-116) Total Protein 5.1 g/dL (6.4-8.2) Albumin 1.5 g/dL (3.4-5.0) Albumin/Globulin Ratio 0.4 (1.0-1.7) Microbiology 12/12/18 - Final, Complete 12/12/18 - Final, Complete 12/12/18 - Final, Complete 12/12/18 Gram Stain Evaluation - Final, Complete 12/12/18 Sputum Culture - Final, Complete 12/12/18 Sputum Result 1 - Final, Complete 12/12/18 Sputum Result 2 - Final, Complete 12/12/18 Anaerobic/Aerobic Culture - Final, Complete 12/12/18 Anaerobic Culture Result 1 (MILLY) - Final, Complete 12/12/18 Aerobic Culture - Final, Complete 12/12/18 Aerobic Culture Result 1 (MILLY) - Final, Complete 12/12/18 Aerobic Culture Result 2 (MILLY) - Final, Complete 12/12/18 Antimicrobic Susceptibility - Final, Complete 12/12/18 Gram Stain - Final, Complete 12/12/18 Gram Stain Result 1 (MILLY) - Final, Complete 12/12/18 Gram Stain Result 2 (MILLY) - Final, Complete Medications Current Medications Ondansetron HCl (Zofran) 4 mg PRN Q6HRS PRN IV NAUSEA/VOMITING; Start 12/12/18 at 12:15; Stop 12/13/18 at 10:37; Status DC Prochlorperazine Edisylate (Compazine) 10 mg PRN Q6HRS PRN IV NAUSEA/VOMITING, 2ND CHOICE; Start 12/12/18 at 12:15 Prochlorperazine (Compazine) 25 mg PRN Q12HR PRN MO NAUSEA/VOMITING; Start at 12:15 Al Hydroxide/Mg Hydroxide (Mylanta Plus Xs) 30 ml PRN Q3HRS PRN PO HEARTBURN / GAS; Start 12/12/18 at 12:15 Calcium Carbonate/ Glycine (Tums) 500 mg PRN Q3HRS PRN PO UPSET STOMACH; Start 12/12/18 at 12:15 Zolpidem Tartrate (Ambien) 5 mg PRN QHS PRN PO INSOMNIA, MAY REPEAT IN 1HR; Start 12/12/18 at 12:15 Oxycodone HCl (Roxicodone) 5 mg PRN Q3HRS PRN PO BREAKTHROUGH PAIN Last administered on 12/17/18at 21:40; Start 12/12/18 at 12:15 Morphine Sulfate (Morphine Sulfate) 2 mg PRN Q2HR PRN IV MILD PAIN Last administered on 12/19/18at 10:21; Start 12/12/18 at 12:15 Acetaminophen (Tylenol) 650 mg PRN Q6HRS PRN PO Headaches, Temp > 101.5F; Start 12/12/18 at 12:15 Magnesium Hydroxide (Milk Of Magnesia) 2,400 mg PRN Q12HR PRN PO CONSTIPATION; Start 12/12/18 at 12:15 Bisacodyl (Dulcolax Supp) 10 mg PRN DAILY PRN MO CONSTIPATION; Start 12/12/18 at 12:15; Stop 12/12/18 at 12:26; Status DC Enoxaparin Sodium (Lovenox 40mg Syringe) 40 mg Q24H SQ ; Start 12/12/18 at 13:00 ; Stop 12/12/18 at 13:00; Status DC Sodium Chloride 1,000 ml @ 100 mls/hr Q10H IV Last administered on 12/13/18at 08:42; Start 12/12/18 at 12:15; Stop 12/13/18 at 11:01; Status DC Famotidine (Pepcid Vial) 20 mg QHS IVP Last administered on 12/15/18at 21:09; Start 12/12/18 at 21:00; Stop 12/16/18 at 15:32; Status DC Acetaminophen (Tylenol Supp) 650 mg PRN Q6HRS PRN RC FEVER; Start 12/12/18 at 12:30 Albuterol Sulfate (Ventolin Neb Soln) 2.5 mg PRN Q6HRS PRN INH SHORTNESS OF BREATH Last administered on 12/15/18at 04:17; Start 12/12/18 at 12:30 Bisacodyl (Dulcolax Supp) 10 mg PRN DAILY PRN RC CONSTIPATION; Start 12/12/18 at 12:30 Insulin Glargine (Lantus) 20 units QHS SQ ; Start 12/12/18 at 21:00; Stop at 21:00; Status DC Nystatin (Nystop) 1 ada BID TP Last administered on 12/18/18at 21:49; Start at 13:00 Norepinephrine Bitartrate 250 ml @ 1.875 mls/ hr CONT PRN IV SEE I/O RECORD Last administered on 12/12/18at 18:17; Start 12/12/18 at 12:45; Stop 12/12/18 at 12:45; Status DC Norepinephrine Bitartrate 250 ml @ 1.875 mls/ hr CONT PRN IV SEE I/O RECORD; Start 12/12/18 at 12:30; Status Cancel Levofloxacin/ Dextrose (Levaquin Per Pharmacy) 1 each PRN DAILY PRN MC SEE COMMENTS; Start 12/12/18 at 12:30; Stop 12/16/18 at 13:54; Status DC Metronidazole 100 ml @ 100 mls/hr Q8HRS IV Last administered on 12/13/18at 05: 53; Start 12/12/18 at 14:00; Stop 12/13/18 at 11:32; Status DC Insulin Glargine (Lantus) 10 units QHS SQ Last administered on 12/12/18at 22:11 ; Start 12/12/18 at 21:00; Stop 12/13/18 at 20:34; Status DC Levofloxacin/ Dextrose 100 ml @ 100 mls/hr Q24H IV Last administered on at 14:11; Start 12/12/18 at 13:00; Stop 12/12/18 at 15:54; Status DC Enoxaparin Sodium (Lovenox 40mg Syringe) 40 mg Q24H SQ Last administered on at 14:16; Start 12/12/18 at 13:00; Stop 12/15/18 at 07:40; Status DC Fentanyl Citrate (Fentanyl 2ml Vial) 25 mcg PRN Q5MIN PRN IV MILD PAIN; Start 12/12/18 at 14:00; Stop 12/13/18 at 13:59; Status DC Fentanyl Citrate (Fentanyl 2ml Vial) 50 mcg PRN Q5MIN PRN IV MODERATE TO SEVERE PAIN; Start 12/12/18 at 14:00; Stop 12/13/18 at 13:59; Status DC Morphine Sulfate (Morphine Sulfate) 1 mg PRN Q10MIN PRN IV PAIN; Start at 14:15; Stop 12/13/18 at 10:38; Status DC Ringer's Solution 1,000 ml @ 30 mls/hr Q24H IV ; Start 12/12/18 at 13:55; Stop 12/13/18 at 01:54; Status DC Lidocaine HCl (Xylocaine-Mpf 1% 2ml Vial) 2 ml 1X PRN PRN ID IV START; Start at 14:00; Stop 12/13/18 at 13:59; Status DC Hydromorphone HCl (Dilaudid) 0.5 mg PRN Q10MIN PRN IV SEV PAIN, Second choice; Start 12/12/18 at 14:00; Stop 12/13/18 at 13:59; Status DC Prochlorperazine Edisylate (Compazine) 5 mg PACU PRN PRN IV NAUSEA, MRX1; Start 12/12/18 at 14:00; Stop 12/13/18 at 13:59; Status DC Tigecycline 100 mg/Dextrose 100 ml @ 200 mls/hr 1X ONCE IV Last administered on 12/12/18at 17:40; Start 12/12/18 at 15:15; Stop 12/12/18 at 15:44; Status DC Tigecycline 50 mg/ Dextrose 50 ml @ 100 mls/hr Q12H IV Last administered on at 02:44; Start 12/13/18 at 03:00; Stop 12/19/18 at 07:03; Status DC Rocuronium [place] (Zemuron) 50 mg STK-MED ONCE .ROUTE ; Start 12/12/18 at 15:37 ; Stop 12/12/18 at 15:39; Status DC Fentanyl Citrate (Fentanyl 2ml Vial) 100 mcg STK-MED ONCE .ROUTE ; Start at 15:37; Stop 12/12/18 at 15:39; Status DC Ketamine HCl (Ketamine) 50 mg STK-MED ONCE .ROUTE ; Start 12/12/18 at 15:49; Stop 12/12/18 at 15:51; Status DC Propofol 20 ml @ As Directed STK-MED ONCE IV ; Start 12/12/18 at 15:49; Stop at 15:51; Status DC Lidocaine HCl (Lidocaine Pf 2% Vial) 5 ml STK-MED ONCE .ROUTE ; Start 12/12/18 at 15:49; Stop 12/12/18 at 15:51; Status DC Dexamethasone Sodium Phosphate (Decadron) 20 mg STK-MED ONCE .ROUTE ; Start at 15:49; Stop 12/12/18 at 15:51; Status DC Ondansetron HCl (Zofran) 4 mg STK-MED ONCE .ROUTE ; Start 12/12/18 at 15:49; Stop 12/12/18 at 15:51; Status DC Phenylephrine HCl (PHENYLEPHRINE in 0.9% NACL PF) 1 mg STK-MED ONCE IV ; Start 12/12/18 at 15:49; Stop 12/12/18 at 15:51; Status DC Desflurane (Suprane) 90 ml STK-MED ONCE IH ; Start 12/12/18 at 15:50; Stop 12/12 at 15:52; Status DC Levofloxacin/ Dextrose 100 ml @ 100 mls/hr Q48H IV Last administered on at 15:13; Start 12/13/18 at 16:00; Stop 12/14/18 at 13:26; Status DC Esmolol HCl (Brevibloc) 100 mg STK-MED ONCE IV ; Start 12/12/18 at 16:24; Stop 12/12/18 at 16:26; Status DC Rocuronium [place] (Zemuron) 100 mg STK-MED ONCE .ROUTE ; Start 12/12/18 at 16: 28; Stop 12/12/18 at 16:30; Status DC Phenylephrine HCl (Veto-Synephrine Inj) 10 mg STK-MED ONCE .ROUTE ; Start at 16:41; Stop 12/12/18 at 16:43; Status DC Cellulose (Surgicel Hemostat 4x8) 1 each STK-MED ONCE .ROUTE ; Start 12/12/18 at 16:47; Stop 12/12/18 at 16:49; Status DC Propofol 100 ml @ 0 mls/hr CONT PRN IV SEE PROTOCOL Last administered on at 05:52; Start 12/12/18 at 17:15; Stop 12/14/18 at 13:15; Status DC Sodium Chloride (Normal Saline Flush) 3 ml QSHIFT PRN IV AFTER MEDS AND BLOOD DRAWS; Start 12/12/18 at 17:30 Hydromorphone HCl (Dilaudid) 1 mg PRN Q3HRS PRN IV PAIN SEVERE Last administered on 12/17/18at 17:03; Start 12/12/18 at 17:30 Ondansetron HCl (Zofran) 4 mg PRN Q6HRS PRN IV NAUESA, 1ST CHOICE; Start at 17:30 Midazolam HCl (Versed) 2 mg PRN Q30MIN PRN IV SEE COMMENTS.; Start 12/12/18 at 17:30; Stop 12/14/18 at 13:20; Status DC Midazolam HCl (Versed) 5 mg STK-MED ONCE .ROUTE ; Start 12/12/18 at 17:23; Stop 12/12/18 at 17:25; Status DC Norepinephrine Bitartrate 250 ml @ 1.875 mls/ hr CONT PRN IV SEE I/O RECORD; Start 12/12/18 at 18:15 Sodium Chloride 1,000 ml @ 1,000 mls/hr 1X ONCE IV Last administered on at 18:45; Start 12/12/18 at 18:15; Stop 12/12/18 at 19:14; Status DC Insulin Human Lispro (HumaLOG) 8 units 1X ONCE SQ Last administered on at 22:15; Start 12/12/18 at 22:30; Stop 12/12/18 at 22:31; Status DC Insulin Human Regular (HumuLIN R VIAL) 10 unit 1X ONCE IV Last administered on 12/13/18at 08:40; Start 12/13/18 at 07:30; Stop 12/13/18 at 07:46; Status DC Insulin Human Lispro (HumaLOG) 6 units 1X ONCE SQ Last administered on at 08:41; Start 12/13/18 at 07:30; Stop 12/13/18 at 07:46; Status DC Insulin Human Lispro (HumaLOG) 0-7 UNITS Q4HRS SQ ; Start 12/13/18 at 08:00; Stop 12/13/18 at 20:34; Status DC Dextrose (Dextrose 50%-Water Syringe) 12.5 gm PRN Q15MIN PRN IV SEE COMMENTS; Start 12/13/18 at 08:00; Stop 12/14/18 at 12:57; Status DC Sodium Chloride 1,000 ml @ 1,000 mls/hr 1X ONCE IV Last administered on at 10:14; Start 12/13/18 at 10:00; Stop 12/13/18 at 11:00; Status DC Sodium Bicarbonate (Sodium Bicarb Adult 8.4% Syr) 50 meq 1X ONCE IV Last administered on 12/13/18at 10:14; Start 12/13/18 at 10:00; Stop 12/13/18 at 10:08 ; Status DC Insulin Human Regular 150 unit/ Sodium Chloride 151.5 ml @ 0 mls/hr CONT PRN PRN IV PER PROTOCOL; Start 12/13/18 at 11:00; Stop 12/13/18 at 20:34; Status DC Potassium Chloride/Water 100 ml @ 100 mls/hr PRN Q1HR PRN IV SEE COMMENTS; Start 12/13/18 at 11:00 Potassium Chloride/Water 100 ml @ 100 mls/hr PRN Q1HR PRN IV SEE COMMENTS; Start 12/13/18 at 11:00 Potassium Chloride/Water 100 ml @ 100 mls/hr PRN Q1HR PRN IV SEE COMMENTS; Start 12/13/18 at 11:00 Sodium Bicarbonate 50 meq/Sodium Chloride 1,050 ml @ 150 mls/hr Q7H IV Last administered on 12/15/18at 07:53; Start 12/13/18 at 11:00; Stop 12/15/18 at 14:19 ; Status DC Albumin Human 500 ml @ 125 mls/hr 1X ONCE IV Last administered on 12/13/18at 14:52; Start 12/13/18 at 11:30; Stop 12/13/18 at 15:29; Status DC Vitamin A/Vitamin D (Vitamin A & D Ointment) 1 ada PRN TID PRN TP SKIN PROTECTION Last administered on 12/15/18 20:45; Start 12/13/18 at 14:00 Magnesium Sulfate/ Dextrose 100 ml @ 25 mls/hr 1X ONCE IV Last administered on 12/13/18at 19:24; Start 12/13/18 at 18:30; Stop 12/13/18 at 22:29; Status DC Potassium Chloride/Water 100 ml @ 100 mls/hr Q1HR IV Last administered on 12/13at 21:42; Start 12/13/18 at 19:00; Stop 12/13/18 at 22:59; Status DC Fentanyl Citrate (Fentanyl 2ml Vial) 25 mcg PRN Q2HR PRN IV MODERATE PAIN Last administered on 12/18/18at 02:48; Start 12/13/18 at 18:30 Dextrose/Sodium Chloride 1,000 ml @ 250 mls/hr Q4H IV Last administered on at 20:00; Start 12/13/18 at 20:00; Stop 12/13/18 at 20:34; Status DC Insulin Glargine (Lantus) 20 units QHS SQ Last administered on 12/17/18at 21:44 ; Start 12/13/18 at 21:00 Insulin Human Lispro (HumaLOG) 0-9 UNITS Q4HRS SQ Last administered on at 17:06; Start 12/14/18 at 00:00; Stop 12/17/18 at 17:52; Status DC Dextrose (Dextrose 50%-Water Syringe) 12.5 gm PRN Q15MIN PRN IV SEE COMMENTS; Start 12/13/18 at 20:30 Albumin Human 500 ml @ 125 mls/hr 1X ONCE IV Last administered on 12/14/18at 00:09; Start 12/13/18 at 23:15; Stop 12/14/18 at 03:14; Status DC Levofloxacin/ Dextrose 150 ml @ 100 mls/hr Q48H IV Last administered on at 16:09; Start 12/15/18 at 16:00; Stop 12/16/18 at 13:54; Status DC Enoxaparin Sodium (Lovenox 60mg Syringe) 60 mg Q12HR SQ Last administered on at 10:21; Start 12/15/18 at 09:00 Sodium Chloride 1,000 ml @ 75 mls/hr [id number] IV Last administered on at 01:46; Start 12/15/18 at 15:00 Lactobacillus Rhamnosus (Culturelle) 1 cap BID PO Last administered on at 21:40; Start 12/16/18 at 21:00; Stop 12/19/18 at 10:08; Status DC Famotidine (Pepcid) 20 mg QHS PO Last administered on 12/17/18at 21:40; Start at 21:00; Stop 12/18/18 at 20:23; Status DC Magnesium Sulfate 50 ml @ 25 mls/hr 1X ONCE IV Last administered on 12/17/18at 13:17; Start 12/17/18 at 13:15; Stop 12/17/18 at 15:14; Status DC Micafungin Sodium 100 mg/Dextrose 100 ml @ 100 mls/hr Q24H IV Last administered on 12/18/18at 16:29; Start 12/17/18 at 14:00 Insulin Human Lispro (HumaLOG) 0-9 UNITS [id number] SQ ; Start 12/17/18 at 21:00 Piperacillin Sod/ Tazobactam Sod 3.375 gm/Sodium Chloride 100 ml @ 200 mls/hr 1X ONCE IV Last administered on 12/18/18at 16:30; Start 12/18/18 at 09:45; Stop 12/18/18 at 10:14; Status DC Piperacillin Sod/ Tazobactam Sod 0.168 gm/Dextrose 50 ml @ 600 mls/hr 1X ONCE IV Last administered on 12/18/18at 14:02; Start 12/18/18 at 10:00; Stop at 10:04; Status DC Piperacillin Sod/ Tazobactam Sod 0.24277 gm/ Dextrose 100 ml @ 1,200 mls/hr 1X ONCE IV Last administered on 12/18/18at 12:26; Start 12/18/18 at 10:00; Stop 12/18/18 at 10:04; Status DC Perflutren Protein Type A Microsphe (Optison) 0.66 mg STK-MED ONCE IV ; Start at 12:44; Stop 12/18/18 at 12:46; Status DC Perflutren Protein Type A Microsphe (Optison) 0.66 mg PRN 1X PRN IV SEE COMMENTS; Start 12/18/18 at 13:45; Stop 12/19/18 at 13:44 Lidocaine/Sodium Bicarbonate (Buffered Lidocaine 1%) 3 ml STK-MED ONCE .ROUTE ; Start 12/18/18 at 15:16; Stop 12/18/18 at 15:18; Status DC Lidocaine/Sodium Bicarbonate (Buffered Lidocaine 1%) 3 ml 1X ONCE INJ Last administered on 12/18/18at 16:00; Start 12/18/18 at 16:00; Stop 12/18/18 at 16:01 ; Status DC Famotidine (Pepcid Vial) 20 mg QHS IVP Last administered on 12/18/18at 21:18; Start 12/18/18 at 21:00 Piperacillin Sod/ Tazobactam Sod 3.375 gm/Sodium Chloride 50 ml @ 100 mls/hr Q6HRS IV Last administered on 12/19/18at 07:00; Start 12/19/18 at 07:00 Info (Tpn Per Pharmacy) 1 each PRN DAILY PRN MC SEE COMMENTS; Start 12/19/18 at 10:00 Active Scripts Active Reported Potassium Chloride 20 Meq Tablet.er 20 Meq PO TIDWMEALS Roxicodone (Oxycodone HCl) 5 Mg Tablet 5 Mg PO PRN Q4HRS PRN Nystatin 1 Each Powder.ea. 1 Each MC BID Levemir (Insulin Detemir) 100 Unit/1 Ml Vial 20 Unit SQ HS Novolog (Insulin Aspart) 100 Unit/1 Ml Cartridge 0 SQ QIDACHS Guaifenesin 600 Mg Tablet.er 600 Mg PO BID Bisacodyl 10 Mg Supp.rect 10 Mg RC PRN DAILY PRN Alprazolam 1 Mg Tablet 1 Tab PO TID PRN Acetaminophen Supp (Acetaminophen) 650 Mg Supp.rect 650 Mg RC PRN Q6HRS PRN Proair Hfa Inhaler (Albuterol Sulfate) 8.5 Gm Hfa.aer.ad 1 Puff INH PRN Q6HRS PRN Levothyroxine Sodium 75 Mcg Tablet 1 Tab PO DAILY Vitals/I & O Vital Sign - Last 24 Hours 12/18/18 12/18/18 12/18/18 12/18/18 12:34 13:00 14:00 15:00 Temp 98.8 98.8 Pulse 101 106 92 88 B/P (MAP) 140/59 (86) 146/83 (104) 148/72 (97) 119/72 (88) Pulse Ox 100 100 100 100 O2 Delivery Nasal Cannula Nasal Cannula Nasal Cannula Nasal Cannula O2 Flow Rate 2.0 2.0 2.0 2.0 12/18/18 12/18/18 12/18/18 12/18/18 15:45 15:50 16:00 16:24 Pulse 102 95 95 B/P (MAP) 156/70 (98) 143/70 (94) 157/72 (100) Pulse Ox 100 100 100 100 O2 Delivery Nasal Cannula Nasal Cannula Nasal Cannula Nasal Cannula O2 Flow Rate 2.0 2.0 2.0 2.0 12/18/18 12/18/18 12/18/18 12/18/18 17:00 18:00 18:41 19:00 Pulse 95 95 94 Resp 16 B/P (MAP) 157/72 (100) 145/72 (96) 145/79 (101) Pulse Ox 100 100 100 100 O2 Delivery Nasal Cannula Nasal Cannula Nasal Cannula Nasal Cannula O2 Flow Rate 2.0 2.0 2.0 2.0 12/18/18 12/18/18 12/18/18 12/18/18 20:00 20:00 21:00 21:19 Temp 98.9 98.9 Pulse 76 76 Resp 16 14 12 B/P (MAP) 148/65 (92) 148/60 (89) Pulse Ox 100 100 100 O2 Delivery Nasal Cannula Nasal Cannula Nasal Cannula Nasal Cannula O2 Flow Rate 2.0 2.0 2.0 2.0 12/18/18 12/18/18 12/19/18 12/19/18 22:00 23:00 00:01 01:00 Temp 98.4 98.4 Pulse 85 87 84 94 Resp 18 14 16 16 B/P (MAP) 169/75 (106) 139/61 (87) 178/75 (109) 158/75 (102) Pulse Ox 100 100 100 100 O2 Delivery Nasal Cannula Nasal Cannula Nasal Cannula Nasal Cannula O2 Flow Rate 2.0 2.0 2.0 2.0 12/19/18 12/19/18 12/19/18 12/19/18 01:46 02:00 02:16 03:00 Pulse 87 81 Resp 12 16 12 16 B/P (MAP) 136/74 (94) 154/59 (90) Pulse Ox 100 100 100 O2 Delivery Nasal Cannula Nasal Cannula Nasal Cannula O2 Flow Rate 2.0 2.0 2.0 12/19/18 12/19/18 12/19/18 12/19/18 04:00 04:50 05:00 06:00 Temp 98.9 98.9 Pulse 85 86 83 Resp 14 12 16 16 B/P (MAP) 172/76 (108) 162/88 (112) 134/63 (86) Pulse Ox 100 100 100 100 O2 Delivery Nasal Cannula Nasal Cannula Nasal Cannula Nasal Cannula O2 Flow Rate 2.0 2.0 2.0 2.0 12/19/18 12/19/18 12/19/18 07:28 08:00 10:21 Pulse Ox 100 100 O2 Delivery Nasal Cannula Nasal Cannula Nasal Cannula O2 Flow Rate 2.0 2.0 2.0 Intake and Output 12/18/18 12/18/18 12/19/18 15:01 23:01 07:01 Intake Total 0 ml 775.5 ml 0 ml Output Total 1680 ml 245 ml Balance 0 ml -904.5 ml -245 ml LYNDA AGRAWAL MD Dec 19, 2018 10:46
[2018-12-19] MEDS ORDERED: SODIUM PHOSPHATE 15 MMOL in IV DEXTROSE 5% 250 ML IV ONE (12:30)
--- NOTE | 2018-12-19 12:36 | NUR ---
SS following up with discharge planning. SS spoke with pt's daughter and pt's spouse via phone to discuss discharge planning and referral to [facility]. Pt's spouse and daughter in agreement to referral to [facility]. SS phoned and faxed referral to [facility]3], ; fax [phone]. SS will await acceptance decision and will proceed accordingly. Pt's RN notified.
[2018-12-19] MEDS ORDERED: MAGNESIUM SULFATE 2GM 50 ML IV ONE (13:00)
--- NOTE | 2018-12-19 13:09 | RAD ---
EXAM: Chest, single view. HISTORY: Respiratory failure. COMPARISON: 12/17/2018 FINDINGS: A frontal view of the chest is obtained. There has been placement of a pleural drainage catheter overlying the left mid thorax. There is a small left pleural effusion. There is diffuse increased central predominant left lung interstitial opacity likely due to atelectasis or infiltrate. There is a port catheter with the tip in the superior cavoatrial junction. There is a left-sided catheter with the tip in the superior vena cava. There is a left shoulder arthroplasty. There are clips within the left upper quadrant. IMPRESSION: Interval left pleural drainage catheter placement. There is increased central predominant left lung interstitial opacity which may be due to atelectasis or infiltrate. There is a suspected small pleural effusion. No convincing pneumothorax is seen. Electronically signed by: Naomie Joseph MD (12/19/2018 1:04 PM) [facility]
[2018-12-19] MEDS: TPN PER PHARMACY MC PRN ×2 (13:16→13:28)
[2018-12-19] MEDS: MICAFUNGIN 100 MG in IV DEXTROSE 5% 100ML 100 ML IV SCH (13:18)
--- NOTE | 2018-12-19 13:34 | NUR ---
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 Height: 4 feet, 8 inches Weight: 122.109700 kg Current diet: NPO LABS: Sodium: 141 Potassium: 4.1 Chloride: 104 Calcium: 7.5 Corrected Calcium: 9.50 Magnesium: 1.7 CO2: 32 SCr: 0.9 Glucose: 121-172 Albumin: 1.5 AST: 36 ALT: 21 TPN FORMULA: TPN TYPE: Central Continuous AMINO ACIDS: 100 gm DEXTROSE: 195 gm LIPIDS: 20 gm SODIUM CHLORIDE: 90 mEq SODIUM ACETATE: - mEq SODIUM PHOSPHATE: - mmol POTASSIUM CHLORIDE: 50 mEq POTASSIUM ACETATE: - mEq POTASSIUM PHOSPHATE: 18 mmol MAGNESIUM: 12 mEq CALCIUM: 10 mEq INSULIN: - units MULTIPLE VITAMIN: 10 ml TRACE ELEMENTS: 1 mL ml(s) TPN PLAN: -Macros per nutrition recommendations: 250 g dextrose, 100 g AA, 40 g lipid. Talked with Yola Walton RD and b/c of re-feeding risk factors will start with dextrose of 195, 100 g AA, and 20 g of lipids at this time and work to increase over next 2-4 days to goal macros. -Phosphate slightly low this AM b/c starting TPN tonight. 15 mmol NaPhos bolus ordered outside of TPN. To be given prior to starting TPN. -Magnesium also slightly low this AM because starting TPN tonight. 2 gram Magnesium Sulfate ordered prior to starting TPN. -Plan to initiate TPN with standard electrolytes with slight increase in KPhos and Mag due to risk of re-feeding and slightly low levels prior to starting TPN. -Maintenance 1/2 NS to be discontinued this evening upon starting TPN. -BMP, Mag, Phos ordered for 12/20/18. R: Begin TPN with macros per nutrition and standard formulation with slight increase in KPhos and Mag. Will monitor electrolytes, glucose, and tolerance to TPN. LASHONDA GALVAN, [facility], 12/19/18 [id number]
--- NOTE | 2018-12-19 14:50 | PDOC ---
CARDIO Progress Notes Date and Time Date of Service 12/19/2018 Time of Evaluation 1420 Subjective Subjective: No Chest Pain, No shortness of breath, No Palpitations, Other ( complains of abd pain in surgical region) Vitals Vitals Vital Signs Date Time Temp Pulse Resp B/P (MAP) Pulse Ox O2 Delivery O2 Flow Rate FiO2 12/19/18 11:14 98.6 103 16 160/57 (91) 99 Nasal Cannula 2.0 98.6 Weight Weight [ ] Input and Output Intake and Output Intake and Output 12/19/18 07:01 Intake Total 775.5 ml Output Total 1925 ml Balance -1149.5 ml Intake Oral 0 ml IV Total 775.5 ml Output Urine Total 1775 ml Chest Tube Drainage Total 150 ml Laboratory Labs Laboratory Tests Test 12/18/18 21:46 12/19/18 05:00 12/19/18 09:59 Glucose (Fingerstick) 121 mg/dL (70-99) 152 mg/dL (70-99) White Blood Count 11.3 x10^3/uL (4.0-11.0) Red Blood Count 3.10 x10^6/uL (3.50-5.40) Hemoglobin 9.0 g/dL (12.0-15.5) Hematocrit 27.9 % (36.0-47.0) Mean Corpuscular Volume 90 fL (79-100) Mean Corpuscular Hemoglobin 29 pg (25-35) Mean Corpuscular Hemoglobin Concent 32 g/dL (31-37) Red Cell Distribution Width 15.0 % (11.5-14.5) Platelet Count 289 x10^3/uL (140-400) Neutrophils (%) (Auto) 69 % (31-73) Lymphocytes (%) (Auto) 22 % (24-48) Monocytes (%) (Auto) 8 % (0-9) Eosinophils (%) (Auto) 1 % (0-3) Basophils (%) (Auto) 0 % (0-3) Neutrophils # (Auto) 7.8 x10^3uL (1.8-7.7) Lymphocytes # (Auto) 2.5 x10^3/uL (1.0-4.8) Monocytes # (Auto) 0.9 x10^3/uL (0.0-1.1) Eosinophils # (Auto) 0.1 x10^3/uL (0.0-0.7) Basophils # (Auto) 0.0 x10^3/uL (0.0-0.2) Sodium Level 141 mmol/L (136-145) Potassium Level 4.1 mmol/L (3.5-5.1) Chloride Level 104 mmol/L (98-107) Carbon Dioxide Level 32 mmol/L (21-32) Anion Gap 5 (6-14) Blood Urea Nitrogen 29 mg/dL (7-20) Creatinine 0.9 mg/dL (0.6-1.0) Estimated GFR (Cockcroft-Gault) 61.2 BUN/Creatinine Ratio 32 (6-20) Glucose Level 142 mg/dL (70-99) Calcium Level 7.5 mg/dL (8.5-10.1) Phosphorus Level 2.5 mg/dL (2.6-4.7) Magnesium Level 1.7 mg/dL (1.8-2.4) Total Bilirubin 1.7 mg/dL (0.2-1.0) Aspartate Amino Transf (AST/SGOT) 36 U/L (15-37) Alanine Aminotransferase (ALT/SGPT) 21 U/L (14-59) Alkaline Phosphatase 185 U/L (46-116) Total Protein 5.1 g/dL (6.4-8.2) Albumin 1.5 g/dL (3.4-5.0) Albumin/Globulin Ratio 0.4 (1.0-1.7) Triglycerides Level 77 mg/dL (0-150) Microbiology Micro Microbiology 12/12/18 - Final, Complete 12/12/18 - Final, Complete 12/12/18 - Final, Complete 12/12/18 Gram Stain Evaluation - Final, Complete 12/12/18 Sputum Culture - Final, Complete 12/12/18 Sputum Result 1 - Final, Complete 12/12/18 Sputum Result 2 - Final, Complete 12/12/18 Anaerobic/Aerobic Culture - Final, Complete 12/12/18 Anaerobic Culture Result 1 (MILLY) - Final, Complete 12/12/18 Aerobic Culture - Final, Complete 12/12/18 Aerobic Culture Result 1 (MILLY) - Final, Complete 12/12/18 Aerobic Culture Result 2 (MILLY) - Final, Complete 12/12/18 Antimicrobic Susceptibility - Final, Complete 12/12/18 Gram Stain - Final, Complete 12/12/18 Gram Stain Result 1 (MILLY) - Final, Complete 12/12/18 Gram Stain Result 2 (MILLY) - Final, Complete Review of Systems Constitutional: yes: other (SEDATED) Physical Exam HEENT: Neck Supple W Full Motion Chest: Symmetric LUNGS: Other (diminished bases; chest tube in place with serous amol) Heart: S1S2, RRR (Sr no significant ectopies) Abdomen: Other (obese, bad surgical incision with dressing) Extremities: Other (trace LE edema) Neurology: alert, follow commands Assessment Assessment 1. NSVT: EF WM nml. No further recurrence. Induced partly by sepsis, metabolic derangement. 2. S/P Abd surgery: with noted abscess and incarcerated hernia. POD#7 3. Acute respiratory failure/shock/sepsis: multiple consultants 4. Spontaneous pneumothorax: chest tube in place. 5. Morbid obesity with suspected CANDACE Recommendations 1. Replace Mg and K as warranted. 2. Metoprolol IV PRN for any tachyarrhythmias. 3. Nothing further cardiac betts. Will follow along peripherally RAOUL GARCIA APRN Dec 19, 2018 14:50
[2018-12-19] MEDS ORDERED: METOPROLOL TARTRATE 5 MG/5 ML VIAL. IVP PRN (15:00)
--- NOTE | 2018-12-19 15:38 | NUR ---
SS following up with discharge planning. SS was notified that pt has been accepted at [facility], ; fax [phone]. SS will await discharge orders and will proceed accordingly.
--- NOTE | 2018-12-19 16:15 | NUR ---
Wound Care Pt seen for wound care follow up and LLQ dressing change. Pt is confused, yelling at WCRNs to "stop, what you're doing is inhumane", which was a change from the previous dressing change, pt's RN Gus at bedside administering pain medication. LLQ dressing saturated, dressing removed, sterile saline poured into cavity and wall suction was used to gently remove some slough/sludgy material from wound bed, ensuring not to touch exposed colon. Wound with continued foul odor, significant slough and minimal eschar present on wound edges, significant undermining in distal portion of cavity. Exposed colon redressed with double layer of Xeroform gauze, then Dakins moistened vaginal packing placed/packed into distal area of wound and saline moistened vag packing packed and placed into proximal wound area and over Xeroform gauze, then area covered with ABDs and tape. Pt's breast and groin folds cleaned and dried, Nystatin powder applied to areas and over intertriginous areas of pannus. L inner thigh and sacral/buttocks wounds are minimally changed from previous assessments, pt and staff reeducated on turn Q2 hours on L & R sides only. Vitamin A&D ointment applied to these areas and pt repositioned onto left side with wedge and pillows, heels floated. Gown and linens changed, hair washed and combed, and eye and skin care completed as well. Will f/u tomorrow for next dressing change.
--- NOTE | 2018-12-19 16:43 | NUR ---
Patient transferred to [address] [place] [address], report called. Patient transferred on water seal. To be returned to wall suction once transferred. notified that patient is changing rooms.
--- NOTE | 2018-12-19 20:19 | NUR ---
Some of patients medications were administered manually, due to technical difficulties with computer WOW system and/or wifi connection.
[2018-12-19] MEDS: FAMOTIDINE 20 MG/2 ML VIAL IVP SCH (21:00)
[2018-12-19] MEDS: INSULIN GLARGINE 300 UNITS/3 ML INSULN.PEN. SQ SCH (21:00)
--- NOTE | 2018-12-19 21:00 | NUR ---
Spotty wifi coverage on [employer]. Charging meds per desk computer when signal is not working.
[2018-12-19] MEDS ORDERED: AMINO ACID IV SCH ×10 (22:00)
[2018-12-19] MEDS ORDERED: TOTAL PARENTERAL NUTRITION IV SCH ×10 (22:00)
[2018-12-19] MEDS ORDERED: [UNRECOGNIZED DRUG - OTHER] IV SCH ×10 (22:00)
[2018-12-19] MEDS ORDERED: DEXTROSE 70% IV SCH ×10 (22:00)
[2018-12-20] MEDS: PIPERACILLIN/TAZOBACTAM 3.375 GM in IV NORMAL SALINE 50ML 50 ML IV SCH ×3 (00:13→12:59)
[2018-12-20 03:32] VITALS: BP 189/80
[2018-12-20 06:40] LABS: BASO % 0 % (0-3); EOS % 0 % (0-3); HEMATOCRIT 28.3 % (36.0-47.0); LYMPH # 2.5 x10^3/uL (1.0-4.8); LYMPH % 20 % (24-48); MEAN CORPUSCULAR HEMOGLOBIN 29 pg (25-35); MEAN CORPUSCULAR HGB CONC 32 g/dL (31-37); MEAN CORPUSCULAR VOLUME 91 fL (79-100); MONO # 0.9 x10^3/uL (0.0-1.1); MONO % 7 % (0-9); NEUT # 8.9 x10^3uL (1.8-7.7); NEUT % 72 % (31-73); PLATELET COUNT 278 x10^3/uL (140-400); RED BLOOD COUNT 3.11 x10^6/uL (3.50-5.40); RED CELL DISTRIBUTION WIDTH 15.1 % (11.5-14.5); WHITE BLOOD COUNT 12.3 x10^3/uL (4.0-11.0)
[2018-12-20 06:58] LABS: ALBUMIN 1.4 g/dL (3.4-5.0); ALBUMIN/GLOBULIN RATIO 0.4 (1.0-1.7); CALCIUM 7.6 mg/dL (8.5-10.1); CREATININE 0.9 mg/dL (0.6-1.0); GFR 61.2; MAGNESIUM 1.9 mg/dL (1.8-2.4); PHOSPHORUS 2.4 mg/dL (2.6-4.7); TOTAL BILIRUBIN 2.1 mg/dL (0.2-1.0); TOTAL PROTEIN 5.1 g/dL (6.4-8.2)
[2018-12-20 08:00] VITALS: BP 138/67
[2018-12-20] MEDS: MORPHINE SULFATE 4 MG/ML VIAL. IV PRN ×2 (08:03→10:19)
[2018-12-20] MEDS: NYSTATIN TOPICAL POWDER 15GM BOTTLE. TP SCH (08:05)
[2018-12-20] MEDS: INSULIN LISPRO 300 UNITS/3 ML INSULN.PEN. SQ SCH ×2 (08:13→13:00)
--- NOTE | 2018-12-20 08:14 | RAD ---
Chest radiograph 12/20/2018 7:33 AM INDICATION: Chest 2 COMPARISON: December 19, 2018 TECHNIQUE: Portable upright frontal view of the chest is provided. FINDINGS: The cardiomediastinal silhouette is within normal limits. Similar appearance of position of a left-sided thoracostomy tube and right chest wall infusion port catheter. Left subclavian central venous catheter is in similar position. There is improved aeration of the left lower lobe with persistent small left pleural effusion. Persistent left perihilar airspace disease is similar. No pneumothorax. Left total shoulder arthroplasty is identified. IMPRESSION: Improved aeration of the left lower lobe with persistent small left pleural effusion and left perihilar airspace disease. Electronically signed by: Hailee Soria MD (12/20/2018 8:09 AM) [id number]
--- NOTE | 2018-12-20 09:27 | PDOC ---
PULMONARY PROGRESS NOTES Subjective extubated 12/13 afternoon NO MORE RENEE Vitals Vital Signs Date Time Temp Pulse Resp B/P (MAP) Pulse Ox O2 Delivery O2 Flow Rate FiO2 12/20/18 08:03 95 Nasal Cannula 2.0 12/20/18 08:00 97.6 89 18 138/67 (90) 97.6 ROS: No Chest Pain General: Alert, No acute distress HEENT: Other (nc at perrl ) Lungs: Crackles Cardiovascular: S1, S2 Abdomen: Soft, Non-tender, Other (obese, wound covered with dressing) Extremities: Other (trace edema) Skin: Warm Labs Laboratory Tests Test 12/18/18 21:46 12/19/18 05:00 12/19/18 09:59 12/19/18 16:50 Glucose (Fingerstick) 121 mg/dL (70-99) 152 mg/dL (70-99) 258 mg/dL (70-99) White Blood Count 11.3 x10^3/uL (4.0-11.0) Red Blood Count 3.10 x10^6/uL (3.50-5.40) Hemoglobin 9.0 g/dL (12.0-15.5) Hematocrit 27.9 % (36.0-47.0) Mean Corpuscular Volume 90 fL (79-100) Mean Corpuscular Hemoglobin 29 pg (25-35) Mean Corpuscular Hemoglobin Concent 32 g/dL (31-37) Red Cell Distribution Width 15.0 % (11.5-14.5) Platelet Count 289 x10^3/uL (140-400) Neutrophils (%) (Auto) 69 % (31-73) Lymphocytes (%) (Auto) 22 % (24-48) Monocytes (%) (Auto) 8 % (0-9) Eosinophils (%) (Auto) 1 % (0-3) Basophils (%) (Auto) 0 % (0-3) Neutrophils # (Auto) 7.8 x10^3uL (1.8-7.7) Lymphocytes # (Auto) 2.5 x10^3/uL (1.0-4.8) Monocytes # (Auto) 0.9 x10^3/uL (0.0-1.1) Eosinophils # (Auto) 0.1 x10^3/uL (0.0-0.7) Basophils # (Auto) 0.0 x10^3/uL (0.0-0.2) Sodium Level 141 mmol/L (136-145) Potassium Level 4.1 mmol/L (3.5-5.1) Chloride Level 104 mmol/L (98-107) Carbon Dioxide Level 32 mmol/L (21-32) Anion Gap 5 (6-14) Blood Urea Nitrogen 29 mg/dL (7-20) Creatinine 0.9 mg/dL (0.6-1.0) Estimated GFR (Cockcroft-Gault) 61.2 BUN/Creatinine Ratio 32 (6-20) Glucose Level 142 mg/dL (70-99) Calcium Level 7.5 mg/dL (8.5-10.1) Phosphorus Level 2.5 mg/dL (2.6-4.7) Magnesium Level 1.7 mg/dL (1.8-2.4) Total Bilirubin 1.7 mg/dL (0.2-1.0) Aspartate Amino Transf (AST/SGOT) 36 U/L (15-37) Alanine Aminotransferase (ALT/SGPT) 21 U/L (14-59) Alkaline Phosphatase 185 U/L (46-116) Total Protein 5.1 g/dL (6.4-8.2) Albumin 1.5 g/dL (3.4-5.0) Albumin/Globulin Ratio 0.4 (1.0-1.7) Triglycerides Level 77 mg/dL (0-150) Test 12/19/18 20:48 12/20/18 06:20 Glucose (Fingerstick) 157 mg/dL (70-99) White Blood Count 12.3 x10^3/uL (4.0-11.0) Red Blood Count 3.11 x10^6/uL (3.50-5.40) Hemoglobin 9.0 g/dL (12.0-15.5) Hematocrit 28.3 % (36.0-47.0) Mean Corpuscular Volume 91 fL (79-100) Mean Corpuscular Hemoglobin 29 pg (25-35) Mean Corpuscular Hemoglobin Concent 32 g/dL (31-37) Red Cell Distribution Width 15.1 % (11.5-14.5) Platelet Count 278 x10^3/uL (140-400) Neutrophils (%) (Auto) 72 % (31-73) Lymphocytes (%) (Auto) 20 % (24-48) Monocytes (%) (Auto) 7 % (0-9) Eosinophils (%) (Auto) 0 % (0-3) Basophils (%) (Auto) 0 % (0-3) Neutrophils # (Auto) 8.9 x10^3uL (1.8-7.7) Lymphocytes # (Auto) 2.5 x10^3/uL (1.0-4.8) Monocytes # (Auto) 0.9 x10^3/uL (0.0-1.1) Eosinophils # (Auto) 0.0 x10^3/uL (0.0-0.7) Basophils # (Auto) 0.0 x10^3/uL (0.0-0.2) Sodium Level 142 mmol/L (136-145) Potassium Level 4.0 mmol/L (3.5-5.1) Chloride Level 107 mmol/L (98-107) Carbon Dioxide Level 31 mmol/L (21-32) Anion Gap 4 (6-14) Blood Urea Nitrogen 28 mg/dL (7-20) Creatinine 0.9 mg/dL (0.6-1.0) Estimated GFR (Cockcroft-Gault) 61.2 BUN/Creatinine Ratio 31 (6-20) Glucose Level 258 mg/dL (70-99) Calcium Level 7.6 mg/dL (8.5-10.1) Phosphorus Level 2.4 mg/dL (2.6-4.7) Magnesium Level 1.9 mg/dL (1.8-2.4) Total Bilirubin 2.1 mg/dL (0.2-1.0) Aspartate Amino Transf (AST/SGOT) 40 U/L (15-37) Alanine Aminotransferase (ALT/SGPT) 30 U/L (14-59) Alkaline Phosphatase 196 U/L (46-116) Total Protein 5.1 g/dL (6.4-8.2) Albumin 1.4 g/dL (3.4-5.0) Albumin/Globulin Ratio 0.4 (1.0-1.7) Laboratory Tests Test 12/19/18 09:59 12/19/18 16:50 12/19/18 20:48 12/20/18 06:20 Glucose (Fingerstick) 152 mg/dL (70-99) 258 mg/dL (70-99) 157 mg/dL (70-99) White Blood Count 12.3 x10^3/uL (4.0-11.0) Red Blood Count 3.11 x10^6/uL (3.50-5.40) Hemoglobin 9.0 g/dL (12.0-15.5) Hematocrit 28.3 % (36.0-47.0) Mean Corpuscular Volume 91 fL (79-100) Mean Corpuscular Hemoglobin 29 pg (25-35) Mean Corpuscular Hemoglobin Concent 32 g/dL (31-37) Red Cell Distribution Width 15.1 % (11.5-14.5) Platelet Count 278 x10^3/uL (140-400) Neutrophils (%) (Auto) 72 % (31-73) Lymphocytes (%) (Auto) 20 % (24-48) Monocytes (%) (Auto) 7 % (0-9) Eosinophils (%) (Auto) 0 % (0-3) Basophils (%) (Auto) 0 % (0-3) Neutrophils # (Auto) 8.9 x10^3uL (1.8-7.7) Lymphocytes # (Auto) 2.5 x10^3/uL (1.0-4.8) Monocytes # (Auto) 0.9 x10^3/uL (0.0-1.1) Eosinophils # (Auto) 0.0 x10^3/uL (0.0-0.7) Basophils # (Auto) 0.0 x10^3/uL (0.0-0.2) Sodium Level 142 mmol/L (136-145) Potassium Level 4.0 mmol/L (3.5-5.1) Chloride Level 107 mmol/L (98-107) Carbon Dioxide Level 31 mmol/L (21-32) Anion Gap 4 (6-14) Blood Urea Nitrogen 28 mg/dL (7-20) Creatinine 0.9 mg/dL (0.6-1.0) Estimated GFR (Cockcroft-Gault) 61.2 BUN/Creatinine Ratio 31 (6-20) Glucose Level 258 mg/dL (70-99) Calcium Level 7.6 mg/dL (8.5-10.1) Phosphorus Level 2.4 mg/dL (2.6-4.7) Magnesium Level 1.9 mg/dL (1.8-2.4) Total Bilirubin 2.1 mg/dL (0.2-1.0) Aspartate Amino Transf (AST/SGOT) 40 U/L (15-37) Alanine Aminotransferase (ALT/SGPT) 30 U/L (14-59) Alkaline Phosphatase 196 U/L (46-116) Total Protein 5.1 g/dL (6.4-8.2) Albumin 1.4 g/dL (3.4-5.0) Albumin/Globulin Ratio 0.4 (1.0-1.7) Medications Active Scripts Medications Dose Route/Sig Max Daily Dose Days Date Category Potassium Chloride 20 Meq Tablet.er 20 Meq PO TIDWMEALS 12/20/16 Reported Roxicodone (Oxycodone HCl) 5 Mg Tablet 5 Mg PO PRN Q4HRS PRN 12/20/16 Reported Nystatin 1 Each Powder.ea. 1 Each MC BID 12/20/16 Reported Levemir (Insulin Detemir) 100 Unit/1 Ml Vial 20 Unit SQ HS 12/20/16 Reported Novolog (Insulin Aspart) 100 Unit/1 Ml Cartridge 0 SQ QIDACHS 12/20/16 Reported Guaifenesin 600 Mg Tablet.er 600 Mg PO BID 12/20/16 Reported Bisacodyl 10 Mg Supp.rect 10 Mg RC PRN DAILY PRN 12/20/16 Reported Alprazolam 1 Mg Tablet 1 Tab PO TID PRN 12/20/16 Reported Acetaminophen Supp (Acetaminophen) 650 Mg Supp.rect 650 Mg RC PRN Q6HRS PRN 12/20/16 Reported Proair Hfa Inhaler (Albuterol Sulfate) 8.5 Gm Hfa.aer.ad 1 Puff INH PRN Q6HRS PRN 06/22/16 Reported Levothyroxine Sodium 75 Mcg Tablet 1 Tab PO DAILY 04/20/15 Reported Impression . 1. Acute respiratory failure secondary to combination of septic and hypovolemic shock. resolved, extubated 12/13 2. Shock secondary to combination of hypovolemia and septic shock. much improved. 3. 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 4. Acute renal failure with metabolic acidosis, improving. 5. Severe protein-calorie malnutrition. 6. No significant history of tobacco use. 7. Disimpacted left humeral fracture. 8. SPONTANEOUS L PTX S/P CHEST TUBE 12/18 NO AIR LEAK Plan . NO AIR LEAK ON CHEST TUBE WILL CONTINUE THE SAME CXR WAS REVIEWED ANTIBX PER ID [id number] CONTINUE SUPPORT DVT AND GI PROPH DEAN LAM MD Dec 20, 2018 09:27
--- NOTE | 2018-12-20 09:52 | PDOC ---
Infectious Disease Note Subjective Subjective Still feels lousy but getting stronger. + Nonproductive cough. A. No Nausea and less SOA Pain better. No itch Denies V/D/F/C/S/ Vital Sign Vital Signs Vital Signs Date Time Temp Pulse Resp B/P (MAP) Pulse Ox O2 Delivery O2 Flow Rate FiO2 12/20/18 08:03 95 Nasal Cannula 2.0 12/20/18 08:00 97.6 89 18 138/67 (90) 97.6 Physical Exam PHYSICAL EXAM GENERAL: Propped up in bed, alert, relaxed appearance - looks better HEENT: Oral cavity clear, dentures LUNGS: Decreased breath sounds. nonlabored Left chest tube in place HEART: S1, S2 with no gallops or murmurs. ABDOMEN: Soft, obese. Bowel sounds present. LLQ wound packed - some brown stained drainage, [place]. : [place] EXTREMITIES: Trace edema, no cyanosis. Chronic venous stasis changes present. LUE edema, shoulder brace in place NEUROLOGIC: Alert, responds appropriately Port & LIJ clean SKIN: - no rash Labs Lab Laboratory Tests Test 12/19/18 09:59 12/19/18 16:50 12/19/18 20:48 12/20/18 06:20 Glucose (Fingerstick) 152 mg/dL (70-99) 258 mg/dL (70-99) 157 mg/dL (70-99) White Blood Count 12.3 x10^3/uL (4.0-11.0) Red Blood Count 3.11 x10^6/uL (3.50-5.40) Hemoglobin 9.0 g/dL (12.0-15.5) Hematocrit 28.3 % (36.0-47.0) Mean Corpuscular Volume 91 fL (79-100) Mean Corpuscular Hemoglobin 29 pg (25-35) Mean Corpuscular Hemoglobin Concent 32 g/dL (31-37) Red Cell Distribution Width 15.1 % (11.5-14.5) Platelet Count 278 x10^3/uL (140-400) Neutrophils (%) (Auto) 72 % (31-73) Lymphocytes (%) (Auto) 20 % (24-48) Monocytes (%) (Auto) 7 % (0-9) Eosinophils (%) (Auto) 0 % (0-3) Basophils (%) (Auto) 0 % (0-3) Neutrophils # (Auto) 8.9 x10^3uL (1.8-7.7) Lymphocytes # (Auto) 2.5 x10^3/uL (1.0-4.8) Monocytes # (Auto) 0.9 x10^3/uL (0.0-1.1) Eosinophils # (Auto) 0.0 x10^3/uL (0.0-0.7) Basophils # (Auto) 0.0 x10^3/uL (0.0-0.2) Sodium Level 142 mmol/L (136-145) Potassium Level 4.0 mmol/L (3.5-5.1) Chloride Level 107 mmol/L (98-107) Carbon Dioxide Level 31 mmol/L (21-32) Anion Gap 4 (6-14) Blood Urea Nitrogen 28 mg/dL (7-20) Creatinine 0.9 mg/dL (0.6-1.0) Estimated GFR (Cockcroft-Gault) 61.2 BUN/Creatinine Ratio 31 (6-20) Glucose Level 258 mg/dL (70-99) Calcium Level 7.6 mg/dL (8.5-10.1) Phosphorus Level 2.4 mg/dL (2.6-4.7) Magnesium Level 1.9 mg/dL (1.8-2.4) Total Bilirubin 2.1 mg/dL (0.2-1.0) Aspartate Amino Transf (AST/SGOT) 40 U/L (15-37) Alanine Aminotransferase (ALT/SGPT) 30 U/L (14-59) Alkaline Phosphatase 196 U/L (46-116) Total Protein 5.1 g/dL (6.4-8.2) Albumin 1.4 g/dL (3.4-5.0) Albumin/Globulin Ratio 0.4 (1.0-1.7) Micro Microbiology 12/12/18 - Final, Complete 12/12/18 - Final, Complete 12/12/18 - Final, Complete 12/12/18 Gram Stain Evaluation - Final, Complete 12/12/18 Sputum Culture - Final, Complete 12/12/18 Sputum Result 1 - Final, Complete 12/12/18 Sputum Result 2 - Final, Complete 12/12/18 Anaerobic/Aerobic Culture, Resulted Pending 12/12/18 Anaerobic Culture Result 1 (MILLY), Resulted Pending 12/12/18 Aerobic Culture - Final, Resulted 12/12/18 Aerobic Culture Result 1 (MILLY) - Final, Resulted 12/12/18 Aerobic Culture Result 2 (MILLY) - Final, Resulted 12/12/18 Antimicrobic Susceptibility - Final, Resulted 12/12/18 Gram Stain - Final, Resulted 12/12/18 Gram Stain Result 1 (MILLY) - Final, Resulted 12/12/18 Gram Stain Result 2 (MILLY) - Final, Resulted Objective Assessment Leukocytosis - ? reactive as clinically she looks better Pneumothorax -left LLQ abdominal 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 Proteus (R cipro, tetra & I Levaquin) and Enterococcus-PCN sensitive. Nursing reports Dr. Lombardi removed 750 ml of stool from abd wound 12/17. Colon mass s/p biopsy, Path showed acute inflammation and granulation tissue consistent with abscess, 12/12. Septic shock, .Source Abdominal wall abscess, improved Acute resp failure postop ;sputum yeast + likely contamination History of multiple allergies Obesity. Diabetes. Right upper extremity peripheral neuropathy. Left upper extremity fracture. Ortho evaluated pt. + swelling - U/S - neg Hyponatremia. Protein-calorie malnutrition, present on admission. Abnormal liver function tests Plan Plan of Care D/c'd Tigecycline 12/19 as has tolerated Zosyn desensitization Cont Micafungin 12/17 Check Procalcitonin clinically looks better but may need to expand abx if worsens Monitor labs wound management per Gen surgery D/w CARMINA JAVED MD Dec 20, 2018 09:52
--- NOTE | 2018-12-20 10:56 | PDOC ---
PROGRESS NOTES Chief Complaint Chief Complaint LLQ abscess, colocutaneous fistula with perforation morbid obesity, BMI 60 diabetes 2 JACOB, NOS Septic shock on admit, better weakness and debilty acute on chronic pain, fibromyalgia pneumothorax - New left side pneumothorax with 39 mm in pleural separation. There is worsened aeration of the left lower lobe suggestive of atelectasis There is improved aeration of the left lower lobe with persistent small left pleural effusion. Persistent left perihilar airspace disease is similar. No pneumothorax. History of Present Illness History of Present Illness 73-year-old female SNF resident w/ PMHx DM, HTN transferred from [facility] 2/2 septic shock from left-sided abdominal wound. Now in the ICU is hypotensive with a map of 56-59. Started on Levaquin and Flagyl empirically. She was found to have a colon perforation and went to OR for colotomy repair, biopsy, and wide area of debridement and returned to ICU on ventilator to recover from surgery. 12/13: Overnight became hyperglycemic. given 10u lispro and 10u lantus, still elevated glucose this morning. BUN returned > 110 this morning, making urine, successfully extubated. Insulin GTT started 12/14: Gap closed yesterday, glucose came down below 200 on multiple checks. She is feeling very weak. still on levophed. Nephrology consulted for uremia. 12/15 - 12/18: Transferred to floor where she was found with apical left PTX, s/p chest tube placement. On Tigecycline and levaquin and micafungin Transferred back to ICU 12/18 for zosyn desenitization and tolerated all doses well, no itching, no rash. She c/o hunger and left arm pain and right facial pain (scratched). no air leak from chest tube Plan: LLQ abscess, colocutaneous fistula with perforation - ID on board - tigecycline Morbid obesity Diabetes - Will cont insulin regimen. TPN JACOB - IVF, appreciate nephrology, bicarb infusion, would like to avoid dialysis Septic shock - IVF and antibiotics tired and weak. She is recovering Left arm fracture - immobilized. PT/OT PTX - chest tube drainage minimal, no air leak PLAN TRANSFER TO [facility] TODAY Vitals Vitals Vital Signs Date Time Temp Pulse Resp B/P (MAP) Pulse Ox O2 Delivery O2 Flow Rate FiO2 12/20/18 10:19 18 95 Nasal Cannula 2.0 12/20/18 08:00 97.6 89 138/67 (90) 97.6 Physical Exam Physical Exam GENERAL: Propped up in bed, alert, relaxed appearance - looks better HEENT: Oral cavity clear, dentures LUNGS: Decreased breath sounds. nonlabored Left chest tube in place HEART: S1, S2 with no gallops or murmurs. ABDOMEN: Soft, obese. Bowel sounds present. LLQ wound packed - some brown stained drainage, Carlos. : [place] EXTREMITIES: Trace edema, no cyanosis. Chronic venous stasis changes present. LUE edema, shoulder brace in place NEUROLOGIC: Alert, responds appropriately Port & LIJ clean SKIN: - no rash General: Alert, Cooperative Heart: Regular rate Lungs: Crackles Abdomen: Other (dressing intact) Extremities: No clubbing, Normal pulses Skin: No significant lesion, Other (dressing in place, drain in place) Labs LABS Chest radiograph 12/20/2018 7:33 AM INDICATION: Chest 2 COMPARISON: December 19, 2018 TECHNIQUE: Portable upright frontal view of the chest is provided. FINDINGS: The cardiomediastinal silhouette is within normal limits. Similar appearance of position of a left-sided thoracostomy tube and right chest wall infusion port catheter. Left subclavian central venous catheter is in similar position. There is improved aeration of the left lower lobe with persistent small left pleural effusion. Persistent left perihilar airspace disease is similar. No pneumothorax. Left total shoulder arthroplasty is identified. IMPRESSION: Improved aeration of the left lower lobe with persistent small left pleural effusion and left perihilar airspace disease. Electronically signed by: Hailee Soria MD (12/20/2018 8:09 AM) Laboratory Tests Test 12/19/18 16:50 12/19/18 20:48 12/20/18 06:20 12/20/18 08:03 Glucose (Fingerstick) 258 mg/dL (70-99) 157 mg/dL (70-99) 266 mg/dL (70-99) White Blood Count 12.3 x10^3/uL (4.0-11.0) Red Blood Count 3.11 x10^6/uL (3.50-5.40) Hemoglobin 9.0 g/dL (12.0-15.5) Hematocrit 28.3 % (36.0-47.0) Mean Corpuscular Volume 91 fL (79-100) Mean Corpuscular Hemoglobin 29 pg (25-35) Mean Corpuscular Hemoglobin Concent 32 g/dL (31-37) Red Cell Distribution Width 15.1 % (11.5-14.5) Platelet Count 278 x10^3/uL (140-400) Neutrophils (%) (Auto) 72 % (31-73) Lymphocytes (%) (Auto) 20 % (24-48) Monocytes (%) (Auto) 7 % (0-9) Eosinophils (%) (Auto) 0 % (0-3) Basophils (%) (Auto) 0 % (0-3) Neutrophils # (Auto) 8.9 x10^3uL (1.8-7.7) Lymphocytes # (Auto) 2.5 x10^3/uL (1.0-4.8) Monocytes # (Auto) 0.9 x10^3/uL (0.0-1.1) Eosinophils # (Auto) 0.0 x10^3/uL (0.0-0.7) Basophils # (Auto) 0.0 x10^3/uL (0.0-0.2) Sodium Level 142 mmol/L (136-145) Potassium Level 4.0 mmol/L (3.5-5.1) Chloride Level 107 mmol/L (98-107) Carbon Dioxide Level 31 mmol/L (21-32) Anion Gap 4 (6-14) Blood Urea Nitrogen 28 mg/dL (7-20) Creatinine 0.9 mg/dL (0.6-1.0) Estimated GFR (Cockcroft-Gault) 61.2 BUN/Creatinine Ratio 31 (6-20) Glucose Level 258 mg/dL (70-99) Calcium Level 7.6 mg/dL (8.5-10.1) Phosphorus Level 2.4 mg/dL (2.6-4.7) Magnesium Level 1.9 mg/dL (1.8-2.4) Total Bilirubin 2.1 mg/dL (0.2-1.0) Aspartate Amino Transf (AST/SGOT) 40 U/L (15-37) Alanine Aminotransferase (ALT/SGPT) 30 U/L (14-59) Alkaline Phosphatase 196 U/L (46-116) Total Protein 5.1 g/dL (6.4-8.2) Albumin 1.4 g/dL (3.4-5.0) Albumin/Globulin Ratio 0.4 (1.0-1.7) Comment Review of Relevant I have reviewed the following items leif (where applicable) has been applied. Labs Laboratory Tests Test 12/18/18 21:46 12/19/18 05:00 12/19/18 09:59 12/19/18 16:50 Glucose (Fingerstick) 121 mg/dL (70-99) 152 mg/dL (70-99) 258 mg/dL (70-99) White Blood Count 11.3 x10^3/uL (4.0-11.0) Red Blood Count 3.10 x10^6/uL (3.50-5.40) Hemoglobin 9.0 g/dL (12.0-15.5) Hematocrit 27.9 % (36.0-47.0) Mean Corpuscular Volume 90 fL (79-100) Mean Corpuscular Hemoglobin 29 pg (25-35) Mean Corpuscular Hemoglobin Concent 32 g/dL (31-37) Red Cell Distribution Width 15.0 % (11.5-14.5) Platelet Count 289 x10^3/uL (140-400) Neutrophils (%) (Auto) 69 % (31-73) Lymphocytes (%) (Auto) 22 % (24-48) Monocytes (%) (Auto) 8 % (0-9) Eosinophils (%) (Auto) 1 % (0-3) Basophils (%) (Auto) 0 % (0-3) Neutrophils # (Auto) 7.8 x10^3uL (1.8-7.7) Lymphocytes # (Auto) 2.5 x10^3/uL (1.0-4.8) Monocytes # (Auto) 0.9 x10^3/uL (0.0-1.1) Eosinophils # (Auto) 0.1 x10^3/uL (0.0-0.7) Basophils # (Auto) 0.0 x10^3/uL (0.0-0.2) Sodium Level 141 mmol/L (136-145) Potassium Level 4.1 mmol/L (3.5-5.1) Chloride Level 104 mmol/L (98-107) Carbon Dioxide Level 32 mmol/L (21-32) Anion Gap 5 (6-14) Blood Urea Nitrogen 29 mg/dL (7-20) Creatinine 0.9 mg/dL (0.6-1.0) Estimated GFR (Cockcroft-Gault) 61.2 BUN/Creatinine Ratio 32 (6-20) Glucose Level 142 mg/dL (70-99) Calcium Level 7.5 mg/dL (8.5-10.1) Phosphorus Level 2.5 mg/dL (2.6-4.7) Magnesium Level 1.7 mg/dL (1.8-2.4) Total Bilirubin 1.7 mg/dL (0.2-1.0) Aspartate Amino Transf (AST/SGOT) 36 U/L (15-37) Alanine Aminotransferase (ALT/SGPT) 21 U/L (14-59) Alkaline Phosphatase 185 U/L (46-116) Total Protein 5.1 g/dL (6.4-8.2) Albumin 1.5 g/dL (3.4-5.0) Albumin/Globulin Ratio 0.4 (1.0-1.7) Triglycerides Level 77 mg/dL (0-150) Test 12/19/18 20:48 12/20/18 06:20 12/20/18 08:03 Glucose (Fingerstick) 157 mg/dL (70-99) 266 mg/dL (70-99) White Blood Count 12.3 x10^3/uL (4.0-11.0) Red Blood Count 3.11 x10^6/uL (3.50-5.40) Hemoglobin 9.0 g/dL (12.0-15.5) Hematocrit 28.3 % (36.0-47.0) Mean Corpuscular Volume 91 fL (79-100) Mean Corpuscular Hemoglobin 29 pg (25-35) Mean Corpuscular Hemoglobin Concent 32 g/dL (31-37) Red Cell Distribution Width 15.1 % (11.5-14.5) Platelet Count 278 x10^3/uL (140-400) Neutrophils (%) (Auto) 72 % (31-73) Lymphocytes (%) (Auto) 20 % (24-48) Monocytes (%) (Auto) 7 % (0-9) Eosinophils (%) (Auto) 0 % (0-3) Basophils (%) (Auto) 0 % (0-3) Neutrophils # (Auto) 8.9 x10^3uL (1.8-7.7) Lymphocytes # (Auto) 2.5 x10^3/uL (1.0-4.8) Monocytes # (Auto) 0.9 x10^3/uL (0.0-1.1) Eosinophils # (Auto) 0.0 x10^3/uL (0.0-0.7) Basophils # (Auto) 0.0 x10^3/uL (0.0-0.2) Sodium Level 142 mmol/L (136-145) Potassium Level 4.0 mmol/L (3.5-5.1) Chloride Level 107 mmol/L (98-107) Carbon Dioxide Level 31 mmol/L (21-32) Anion Gap 4 (6-14) Blood Urea Nitrogen 28 mg/dL (7-20) Creatinine 0.9 mg/dL (0.6-1.0) Estimated GFR (Cockcroft-Gault) 61.2 BUN/Creatinine Ratio 31 (6-20) Glucose Level 258 mg/dL (70-99) Calcium Level 7.6 mg/dL (8.5-10.1) Phosphorus Level 2.4 mg/dL (2.6-4.7) Magnesium Level 1.9 mg/dL (1.8-2.4) Total Bilirubin 2.1 mg/dL (0.2-1.0) Aspartate Amino Transf (AST/SGOT) 40 U/L (15-37) Alanine Aminotransferase (ALT/SGPT) 30 U/L (14-59) Alkaline Phosphatase 196 U/L (46-116) Total Protein 5.1 g/dL (6.4-8.2) Albumin 1.4 g/dL (3.4-5.0) Albumin/Globulin Ratio 0.4 (1.0-1.7) Laboratory Tests Test 12/19/18 16:50 12/19/18 20:48 12/20/18 06:20 12/20/18 08:03 Glucose (Fingerstick) 258 mg/dL (70-99) 157 mg/dL (70-99) 266 mg/dL (70-99) White Blood Count 12.3 x10^3/uL (4.0-11.0) Red Blood Count 3.11 x10^6/uL (3.50-5.40) Hemoglobin 9.0 g/dL (12.0-15.5) Hematocrit 28.3 % (36.0-47.0) Mean Corpuscular Volume 91 fL (79-100) Mean Corpuscular Hemoglobin 29 pg (25-35) Mean Corpuscular Hemoglobin Concent 32 g/dL (31-37) Red Cell Distribution Width 15.1 % (11.5-14.5) Platelet Count 278 x10^3/uL (140-400) Neutrophils (%) (Auto) 72 % (31-73) Lymphocytes (%) (Auto) 20 % (24-48) Monocytes (%) (Auto) 7 % (0-9) Eosinophils (%) (Auto) 0 % (0-3) Basophils (%) (Auto) 0 % (0-3) Neutrophils # (Auto) 8.9 x10^3uL (1.8-7.7) Lymphocytes # (Auto) 2.5 x10^3/uL (1.0-4.8) Monocytes # (Auto) 0.9 x10^3/uL (0.0-1.1) Eosinophils # (Auto) 0.0 x10^3/uL (0.0-0.7) Basophils # (Auto) 0.0 x10^3/uL (0.0-0.2) Sodium Level 142 mmol/L (136-145) Potassium Level 4.0 mmol/L (3.5-5.1) Chloride Level 107 mmol/L (98-107) Carbon Dioxide Level 31 mmol/L (21-32) Anion Gap 4 (6-14) Blood Urea Nitrogen 28 mg/dL (7-20) Creatinine 0.9 mg/dL (0.6-1.0) Estimated GFR (Cockcroft-Gault) 61.2 BUN/Creatinine Ratio 31 (6-20) Glucose Level 258 mg/dL (70-99) Calcium Level 7.6 mg/dL (8.5-10.1) Phosphorus Level 2.4 mg/dL (2.6-4.7) Magnesium Level 1.9 mg/dL (1.8-2.4) Total Bilirubin 2.1 mg/dL (0.2-1.0) Aspartate Amino Transf (AST/SGOT) 40 U/L (15-37) Alanine Aminotransferase (ALT/SGPT) 30 U/L (14-59) Alkaline Phosphatase 196 U/L (46-116) Total Protein 5.1 g/dL (6.4-8.2) Albumin 1.4 g/dL (3.4-5.0) Albumin/Globulin Ratio 0.4 (1.0-1.7) Microbiology 12/12/18 - Final, Complete 12/12/18 - Final, Complete 12/12/18 - Final, Complete 12/12/18 Gram Stain Evaluation - Final, Complete 12/12/18 Sputum Culture - Final, Complete 12/12/18 Sputum Result 1 - Final, Complete 12/12/18 Sputum Result 2 - Final, Complete 12/12/18 Anaerobic/Aerobic Culture - Final, Complete 12/12/18 Anaerobic Culture Result 1 (MILLY) - Final, Complete 12/12/18 Aerobic Culture - Final, Complete 12/12/18 Aerobic Culture Result 1 (MILLY) - Final, Complete 12/12/18 Aerobic Culture Result 2 (MILLY) - Final, Complete 12/12/18 Antimicrobic Susceptibility - Final, Complete 12/12/18 Gram Stain - Final, Complete 12/12/18 Gram Stain Result 1 (MILLY) - Final, Complete 12/12/18 Gram Stain Result 2 (MILLY) - Final, Complete Medications Current Medications Ondansetron HCl (Zofran) 4 mg PRN Q6HRS PRN IV NAUSEA/VOMITING; Start 12/12/18 at 12:15; Stop 12/13/18 at 10:37; Status DC Prochlorperazine Edisylate (Compazine) 10 mg PRN Q6HRS PRN IV NAUSEA/VOMITING, 2ND CHOICE; Start 12/12/18 at 12:15 Prochlorperazine (Compazine) 25 mg PRN Q12HR PRN ND NAUSEA/VOMITING; Start at 12:15 Al Hydroxide/Mg Hydroxide (Mylanta Plus Xs) 30 ml PRN Q3HRS PRN PO HEARTBURN / GAS; Start 12/12/18 at 12:15 Calcium Carbonate/ Glycine (Tums) 500 mg PRN Q3HRS PRN PO UPSET STOMACH; Start 12/12/18 at 12:15 Zolpidem Tartrate (Ambien) 5 mg PRN QHS PRN PO INSOMNIA, MAY REPEAT IN 1HR; Start 12/12/18 at 12:15 Oxycodone HCl (Roxicodone) 5 mg PRN Q3HRS PRN PO BREAKTHROUGH PAIN Last administered on 12/17/18at 21:40; Start 12/12/18 at 12:15 Morphine Sulfate (Morphine Sulfate) 2 mg PRN Q2HR PRN IV MILD PAIN Last administered on 12/20/18at 10:19; Start 12/12/18 at 12:15 Acetaminophen (Tylenol) 650 mg PRN Q6HRS PRN PO Headaches, Temp > 101.5F; Start 12/12/18 at 12:15 Magnesium Hydroxide (Milk Of Magnesia) 2,400 mg PRN Q12HR PRN PO CONSTIPATION; Start 12/12/18 at 12:15 Bisacodyl (Dulcolax Supp) 10 mg PRN DAILY PRN ND CONSTIPATION; Start 12/12/18 at 12:15; Stop 12/12/18 at 12:26; Status DC Enoxaparin Sodium (Lovenox 40mg Syringe) 40 mg Q24H SQ ; Start 12/12/18 at 13:00 ; Stop 12/12/18 at 13:00; Status DC Sodium Chloride 1,000 ml @ 100 mls/hr Q10H IV Last administered on 12/13/18at 08:42; Start 12/12/18 at 12:15; Stop 12/13/18 at 11:01; Status DC Famotidine (Pepcid Vial) 20 mg QHS IVP Last administered on 12/15/18at 21:09; Start 12/12/18 at 21:00; Stop 12/16/18 at 15:32; Status DC Acetaminophen (Tylenol Supp) 650 mg PRN Q6HRS PRN RC FEVER; Start 12/12/18 at 12:30 Albuterol Sulfate (Ventolin Neb Soln) 2.5 mg PRN Q6HRS PRN INH SHORTNESS OF BREATH Last administered on 12/15/18at 04:17; Start 12/12/18 at 12:30 Bisacodyl (Dulcolax Supp) 10 mg PRN DAILY PRN RC CONSTIPATION; Start 12/12/18 at 12:30 Insulin Glargine (Lantus) 20 units QHS SQ ; Start 12/12/18 at 21:00; Stop at 21:00; Status DC Nystatin (Nystop) 1 ada BID TP Last administered on 12/20/18at 08:05; Start at 13:00 Norepinephrine Bitartrate 250 ml @ 1.875 mls/ hr CONT PRN IV SEE I/O RECORD Last administered on 12/12/18at 18:17; Start 12/12/18 at 12:45; Stop 12/12/18 at 12:45; Status DC Norepinephrine Bitartrate 250 ml @ 1.875 mls/ hr CONT PRN IV SEE I/O RECORD; Start 12/12/18 at 12:30; Status Cancel Levofloxacin/ Dextrose (Levaquin Per Pharmacy) 1 each PRN DAILY PRN MC SEE COMMENTS; Start 12/12/18 at 12:30; Stop 12/16/18 at 13:54; Status DC Metronidazole 100 ml @ 100 mls/hr Q8HRS IV Last administered on 12/13/18at 05: 53; Start 12/12/18 at 14:00; Stop 12/13/18 at 11:32; Status DC Insulin Glargine (Lantus) 10 units QHS SQ Last administered on 12/12/18at 22:11 ; Start 12/12/18 at 21:00; Stop 12/13/18 at 20:34; Status DC Levofloxacin/ Dextrose 100 ml @ 100 mls/hr Q24H IV Last administered on at 14:11; Start 12/12/18 at 13:00; Stop 12/12/18 at 15:54; Status DC Enoxaparin Sodium (Lovenox 40mg Syringe) 40 mg Q24H SQ Last administered on at 14:16; Start 12/12/18 at 13:00; Stop 12/15/18 at 07:40; Status DC Fentanyl Citrate (Fentanyl 2ml Vial) 25 mcg PRN Q5MIN PRN IV MILD PAIN; Start 12/12/18 at 14:00; Stop 12/13/18 at 13:59; Status DC Fentanyl Citrate (Fentanyl 2ml Vial) 50 mcg PRN Q5MIN PRN IV MODERATE TO SEVERE PAIN; Start 12/12/18 at 14:00; Stop 12/13/18 at 13:59; Status DC Morphine Sulfate (Morphine Sulfate) 1 mg PRN Q10MIN PRN IV PAIN; Start at 14:15; Stop 12/13/18 at 10:38; Status DC Ringer's Solution 1,000 ml @ 30 mls/hr Q24H IV ; Start 12/12/18 at 13:55; Stop 12/13/18 at 01:54; Status DC Lidocaine HCl (Xylocaine-Mpf 1% 2ml Vial) 2 ml 1X PRN PRN ID IV START; Start at 14:00; Stop 12/13/18 at 13:59; Status DC Hydromorphone HCl (Dilaudid) 0.5 mg PRN Q10MIN PRN IV SEV PAIN, Second choice; Start 12/12/18 at 14:00; Stop 12/13/18 at 13:59; Status DC Prochlorperazine Edisylate (Compazine) 5 mg PACU PRN PRN IV NAUSEA, MRX1; Start 12/12/18 at 14:00; Stop 12/13/18 at 13:59; Status DC Tigecycline 100 mg/Dextrose 100 ml @ 200 mls/hr 1X ONCE IV Last administered on 12/12/18at 17:40; Start 12/12/18 at 15:15; Stop 12/12/18 at 15:44; Status DC Tigecycline 50 mg/ Dextrose 50 ml @ 100 mls/hr Q12H IV Last administered on at 02:44; Start 12/13/18 at 03:00; Stop 12/19/18 at 07:03; Status DC Rocuronium Monroe (Zemuron) 50 mg STK-MED ONCE .ROUTE ; Start 12/12/18 at 15:37 ; Stop 12/12/18 at 15:39; Status DC Fentanyl Citrate (Fentanyl 2ml Vial) 100 mcg STK-MED ONCE .ROUTE ; Start at 15:37; Stop 12/12/18 at 15:39; Status DC Ketamine HCl (Ketamine) 50 mg STK-MED ONCE .ROUTE ; Start 12/12/18 at 15:49; Stop 12/12/18 at 15:51; Status DC Propofol 20 ml @ As Directed STK-MED ONCE IV ; Start 12/12/18 at 15:49; Stop at 15:51; Status DC Lidocaine HCl (Lidocaine Pf 2% Vial) 5 ml STK-MED ONCE .ROUTE ; Start 12/12/18 at 15:49; Stop 12/12/18 at 15:51; Status DC Dexamethasone Sodium Phosphate (Decadron) 20 mg STK-MED ONCE .ROUTE ; Start at 15:49; Stop 12/12/18 at 15:51; Status DC Ondansetron HCl (Zofran) 4 mg STK-MED ONCE .ROUTE ; Start 12/12/18 at 15:49; Stop 12/12/18 at 15:51; Status DC Phenylephrine HCl (PHENYLEPHRINE in 0.9% NACL PF) 1 mg STK-MED ONCE IV ; Start 12/12/18 at 15:49; Stop 12/12/18 at 15:51; Status DC Desflurane (Suprane) 90 ml STK-MED ONCE IH ; Start 12/12/18 at 15:50; Stop 12/12 at 15:52; Status DC Levofloxacin/ Dextrose 100 ml @ 100 mls/hr Q48H IV Last administered on at 15:13; Start 12/13/18 at 16:00; Stop 12/14/18 at 13:26; Status DC Esmolol HCl (Brevibloc) 100 mg STK-MED ONCE IV ; Start 12/12/18 at 16:24; Stop 12/12/18 at 16:26; Status DC Rocuronium Monroe (Zemuron) 100 mg STK-MED ONCE .ROUTE ; Start 12/12/18 at 16: 28; Stop 12/12/18 at 16:30; Status DC Phenylephrine HCl (Veto-Synephrine Inj) 10 mg STK-MED ONCE .ROUTE ; Start at 16:41; Stop 12/12/18 at 16:43; Status DC Cellulose (Surgicel Hemostat 4x8) 1 each STK-MED ONCE .ROUTE ; Start 12/12/18 at 16:47; Stop 12/12/18 at 16:49; Status DC Propofol 100 ml @ 0 mls/hr CONT PRN IV SEE PROTOCOL Last administered on at 05:52; Start 12/12/18 at 17:15; Stop 12/14/18 at 13:15; Status DC Sodium Chloride (Normal Saline Flush) 3 ml QSHIFT PRN IV AFTER MEDS AND BLOOD DRAWS; Start 12/12/18 at 17:30 Hydromorphone HCl (Dilaudid) 1 mg PRN Q3HRS PRN IV PAIN SEVERE Last administered on 12/17/18at 17:03; Start 12/12/18 at 17:30 Ondansetron HCl (Zofran) 4 mg PRN Q6HRS PRN IV NAUESA, 1ST CHOICE; Start at 17:30 Midazolam HCl (Versed) 2 mg PRN Q30MIN PRN IV SEE COMMENTS.; Start 12/12/18 at 17:30; Stop 12/14/18 at 13:20; Status DC Midazolam HCl (Versed) 5 mg STK-MED ONCE .ROUTE ; Start 12/12/18 at 17:23; Stop 12/12/18 at 17:25; Status DC Norepinephrine Bitartrate 250 ml @ 1.875 mls/ hr CONT PRN IV SEE I/O RECORD; Start 12/12/18 at 18:15 Sodium Chloride 1,000 ml @ 1,000 mls/hr 1X ONCE IV Last administered on at 18:45; Start 12/12/18 at 18:15; Stop 12/12/18 at 19:14; Status DC Insulin Human Lispro (HumaLOG) 8 units 1X ONCE SQ Last administered on at 22:15; Start 12/12/18 at 22:30; Stop 12/12/18 at 22:31; Status DC Insulin Human Regular (HumuLIN R VIAL) 10 unit 1X ONCE IV Last administered on 12/13/18at 08:40; Start 12/13/18 at 07:30; Stop 12/13/18 at 07:46; Status DC Insulin Human Lispro (HumaLOG) 6 units 1X ONCE SQ Last administered on at 08:41; Start 12/13/18 at 07:30; Stop 12/13/18 at 07:46; Status DC Insulin Human Lispro (HumaLOG) 0-7 UNITS Q4HRS SQ ; Start 12/13/18 at 08:00; Stop 12/13/18 at 20:34; Status DC Dextrose (Dextrose 50%-Water Syringe) 12.5 gm PRN Q15MIN PRN IV SEE COMMENTS; Start 12/13/18 at 08:00; Stop 12/14/18 at 12:57; Status DC Sodium Chloride 1,000 ml @ 1,000 mls/hr 1X ONCE IV Last administered on at 10:14; Start 12/13/18 at 10:00; Stop 12/13/18 at 11:00; Status DC Sodium Bicarbonate (Sodium Bicarb Adult 8.4% Syr) 50 meq 1X ONCE IV Last administered on 12/13/18at 10:14; Start 12/13/18 at 10:00; Stop 12/13/18 at 10:08 ; Status DC Insulin Human Regular 150 unit/ Sodium Chloride 151.5 ml @ 0 mls/hr CONT PRN PRN IV PER PROTOCOL; Start 12/13/18 at 11:00; Stop 12/13/18 at 20:34; Status DC Potassium Chloride/Water 100 ml @ 100 mls/hr PRN Q1HR PRN IV SEE COMMENTS; Start 12/13/18 at 11:00; Stop 12/19/18 at 11:39; Status DC Potassium Chloride/Water 100 ml @ 100 mls/hr PRN Q1HR PRN IV SEE COMMENTS; Start 12/13/18 at 11:00; Stop 12/19/18 at 11:39; Status DC Potassium Chloride/Water 100 ml @ 100 mls/hr PRN Q1HR PRN IV SEE COMMENTS; Start 12/13/18 at 11:00; Stop 12/19/18 at 11:40; Status DC Sodium Bicarbonate 50 meq/Sodium Chloride 1,050 ml @ 150 mls/hr Q7H IV Last administered on 12/15/18at 07:53; Start 12/13/18 at 11:00; Stop 12/15/18 at 14:19 ; Status DC Albumin Human 500 ml @ 125 mls/hr 1X ONCE IV Last administered on 12/13/18at 14:52; Start 12/13/18 at 11:30; Stop 12/13/18 at 15:29; Status DC Vitamin A/Vitamin D (Vitamin A & D Ointment) 1 ada PRN TID PRN TP SKIN PROTECTION Last administered on 12/15/18at 20:45; Start 12/13/18 at 14:00 Magnesium Sulfate/ Dextrose 100 ml @ 25 mls/hr 1X ONCE IV Last administered on 12/13/18at 19:24; Start 12/13/18 at 18:30; Stop 12/13/18 at 22:29; Status DC Potassium Chloride/Water 100 ml @ 100 mls/hr Q1HR IV Last administered on 12/13at 21:42; Start 12/13/18 at 19:00; Stop 12/13/18 at 22:59; Status DC Fentanyl Citrate (Fentanyl 2ml Vial) 25 mcg PRN Q2HR PRN IV MODERATE PAIN Last administered on 12/18/18at 02:48; Start 12/13/18 at 18:30 Dextrose/Sodium Chloride 1,000 ml @ 250 mls/hr Q4H IV Last administered on at 20:00; Start 12/13/18 at 20:00; Stop 12/13/18 at 20:34; Status DC Insulin Glargine (Lantus) 20 units QHS SQ Last administered on 12/19/18at 21:00 ; Start 12/13/18 at 21:00 Insulin Human Lispro (HumaLOG) 0-9 UNITS Q4HRS SQ Last administered on at 17:06; Start 12/14/18 at 00:00; Stop 12/17/18 at 17:52; Status DC Dextrose (Dextrose 50%-Water Syringe) 12.5 gm PRN Q15MIN PRN IV SEE COMMENTS; Start 12/13/18 at 20:30 Albumin Human 500 ml @ 125 mls/hr 1X ONCE IV Last administered on 12/14/18at 00:09; Start 12/13/18 at 23:15; Stop 12/14/18 at 03:14; Status DC Levofloxacin/ Dextrose 150 ml @ 100 mls/hr Q48H IV Last administered on at 16:09; Start 12/15/18 at 16:00; Stop 12/16/18 at 13:54; Status DC Enoxaparin Sodium (Lovenox 60mg Syringe) 60 mg Q12HR SQ Last administered on at 08:04; Start 12/15/18 at 09:00 Sodium Chloride 1,000 ml @ 75 mls/hr [id number] IV Last administered on at 01:46; Start 12/15/18 at 15:00; Stop 12/19/18 at 21:59; Status DC Lactobacillus Rhamnosus (Culturelle) 1 cap BID PO Last administered on at 21:40; Start 12/16/18 at 21:00; Stop 12/19/18 at 10:08; Status DC Famotidine (Pepcid) 20 mg QHS PO Last administered on 12/17/18at 21:40; Start at 21:00; Stop 12/18/18 at 20:23; Status DC Magnesium Sulfate 50 ml @ 25 mls/hr 1X ONCE IV Last administered on 12/17/18at 13:17; Start 12/17/18 at 13:15; Stop 12/17/18 at 15:14; Status DC Micafungin Sodium 100 mg/Dextrose 100 ml @ 100 mls/hr Q24H IV Last administered on 12/19/18at 13:18; Start 12/17/18 at 14:00 Insulin Human Lispro (HumaLOG) 0-9 UNITS [id number] SQ Last administered on at 08:13; Start 12/17/18 at 21:00 Piperacillin Sod/ Tazobactam Sod 3.375 gm/Sodium Chloride 100 ml @ 200 mls/hr 1X ONCE IV Last administered on 12/18/18at 16:30; Start 12/18/18 at 09:45; Stop 12/18/18 at 10:14; Status DC Piperacillin Sod/ Tazobactam Sod 0.168 gm/Dextrose 50 ml @ 600 mls/hr 1X ONCE IV Last administered on 12/18/18at 14:02; Start 12/18/18 at 10:00; Stop at 10:04; Status DC Piperacillin Sod/ Tazobactam Sod 0.10284 gm/ Dextrose 100 ml @ 1,200 mls/hr 1X ONCE IV Last administered on 12/18/18at 12:26; Start 12/18/18 at 10:00; Stop 12/18/18 at 10:04; Status DC Perflutren Protein Type A Microsphe (Optison) 0.66 mg STK-MED ONCE IV ; Start at 12:44; Stop 12/18/18 at 12:46; Status DC Perflutren Protein Type A Microsphe (Optison) 0.66 mg PRN 1X PRN IV SEE COMMENTS; Start 12/18/18 at 13:45; Stop 12/19/18 at 13:44; Status DC Lidocaine/Sodium Bicarbonate (Buffered Lidocaine 1%) 3 ml STK-MED ONCE .ROUTE ; Start 12/18/18 at 15:16; Stop 12/18/18 at 15:18; Status DC Lidocaine/Sodium Bicarbonate (Buffered Lidocaine 1%) 3 ml 1X ONCE INJ Last administered on 12/18/18at 16:00; Start 12/18/18 at 16:00; Stop 12/18/18 at 16:01 ; Status DC Famotidine (Pepcid Vial) 20 mg QHS IVP Last administered on 12/19/18at 21:00; Start 12/18/18 at 21:00 Piperacillin Sod/ Tazobactam Sod 3.375 gm/Sodium Chloride 50 ml @ 100 mls/hr Q6HRS IV Last administered on 12/20/18at 06:16; Start 12/19/18 at 07:00 Info (Tpn Per Pharmacy) 1 each PRN DAILY PRN MC SEE COMMENTS Last administered on 12/19/18at 13:28; Start 12/19/18 at 10:00 Sodium Phosphate 15 mmol/Dextrose 255 ml @ 62.5 mls/hr 1X ONCE IV Last administered on 12/19/18at 13:16; Start 12/19/18 at 12:30; Stop 12/19/18 at 16:34 ; Status DC Magnesium Sulfate 50 ml @ 25 mls/hr 1X ONCE IV Last administered on 12/19/18at 13:00; Start 12/19/18 at 13:00; Stop 12/19/18 at 14:59; Status DC Sodium Chloride 90 meq/Potassium Chloride 50 meq/ Potassium Phosphate 18 mmol/ Magnesium Sulfate 12 meq/Calcium Gluconate 10 meq/ Multivitamins 10 ml/Chromium / Copper/Manganese/ Seleni/Zn 1 ml/ Total Parenteral Nutrition/Amino Acids/ Dextrose/ Fat Emulsion Intravenous 1,512 ml @ 63 mls/hr TPN CONT IV Last administered on 12/19/18at 22:56; Start 12/19/18 at 22:00; Stop 12/20/18 at 21:59 Perflutren Protein Type A Microsphe (Optison) 0.66 mg STK-MED ONCE IV ; Start at 13:00; Stop 12/19/18 at 14:24; Status DC Metoprolol Tartrate (Lopressor Vial) 5 mg PRN Q5MIN PRN IVP TACHYCARDIA; Start 12/19/18 at 15:00 Active Scripts Active Reported Potassium Chloride 20 Meq Tablet.er 20 Meq PO TIDWMEALS Roxicodone (Oxycodone HCl) 5 Mg Tablet 5 Mg PO PRN Q4HRS PRN Nystatin 1 Each Powder.ea. 1 Each MC BID Levemir (Insulin Detemir) 100 Unit/1 Ml Vial 20 Unit SQ HS Novolog (Insulin Aspart) 100 Unit/1 Ml Cartridge 0 SQ QIDACHS Guaifenesin 600 Mg Tablet.er 600 Mg PO BID Bisacodyl 10 Mg Supp.rect 10 Mg RC PRN DAILY PRN Alprazolam 1 Mg Tablet 1 Tab PO TID PRN Acetaminophen Supp (Acetaminophen) 650 Mg Supp.rect 650 Mg RC PRN Q6HRS PRN Proair Hfa Inhaler (Albuterol Sulfate) 8.5 Gm Hfa.aer.ad 1 Puff INH PRN Q6HRS PRN Levothyroxine Sodium 75 Mcg Tablet 1 Tab PO DAILY Vitals/I & O Vital Sign - Last 24 Hours 12/19/18 12/19/18 12/19/18 12/19/18 11:14 15:12 16:00 16:49 Temp 98.6 97.7 98.6 97.7 Pulse 103 97 Resp 16 18 B/P (MAP) 160/57 (91) 109/65 (80) Pulse Ox 99 99 97 99 O2 Delivery Nasal Cannula Nasal Cannula Room Air Nasal Cannula O2 Flow Rate 2.0 2.0 2.0 12/19/18 12/19/18 12/19/18 12/19/18 17:49 19:40 19:42 20:00 Temp 98.6 98.6 Pulse 102 Resp 18 B/P (MAP) 167/57 (93) Pulse Ox 99 99 97 O2 Delivery Nasal Cannula Nasal Cannula Room Air O2 Flow Rate 2.0 2.0 12/19/18 12/19/18 12/20/18 12/20/18 22:05 23:46 03:32 08:00 Temp 98.8 98.6 97.6 98.8 98.6 97.6 Pulse 104 105 89 Resp 18 18 18 18 B/P (MAP) 183/65 (104) 189/80 (116) 138/67 (90) Pulse Ox 100 95 100 O2 Delivery Room Air Room Air Room Air Nasal Cannula O2 Flow Rate 2.0 1.0 12/20/18 12/20/18 12/20/18 08:03 08:33 10:19 Resp 18 18 Pulse Ox 95 95 O2 Delivery Nasal Cannula Nasal Cannula Nasal Cannula O2 Flow Rate 2.0 2.0 2.0 Intake and Output 12/19/18 12/19/18 12/20/18 15:01 23:01 07:01 Intake Total 0 ml 596 ml Output Total 100 ml 100 ml 750 ml Balance -100 ml -100 ml -154 ml SAMI CHENEY MD Dec 20, 2018 10:56
--- NOTE | 2018-12-20 11:05 | PDOC3 ---
Discharge Summary Date of Admission: Dec 12, 2018 Date of Discharge: Dec 20, 2018 Follow-Up: 1-2 days Admitting Diagnosis comment: DISCHARGE DIAGNOSIS Chief Complaint LLQ abscess, colocutaneous fistula with perforation morbid obesity, BMI 60 diabetes 2 JACOB, NOS Septic shock on admit, better weakness and debilty acute on chronic pain, fibromyalgia pneumothorax - New left side pneumothorax with 39 mm in pleural separation. CHEST TUBE PLACED 12/18 There is improved aeration of the left lower lobe with persistent small left pleural effusion. Persistent left perihilar airspace disease is similar. No pneumothorax. History of Present Illness History of Present Illness 73-year-old female SNF resident w/ PMHx DM, HTN transferred from [facility] 2/2 septic shock from left-sided abdominal wound. INITIALLY Started on Levaquin and Flagyl empirically. She was found to have a colon perforation and went to OR for colotomy repair, biopsy, and wide area of debridement and returned to ICU on ventilator to recover from surgery. 12/13: Overnight became hyperglycemic. given 10u lispro and 10u lantus, still elevated glucose this morning. BUN returned > 110 this morning, making urine, successfully extubated. Insulin GTT started 12/14: Gap closed yesterday, glucose came down below 200 on multiple checks. She is feeling very weak. still on levophed. Nephrology consulted for uremia. 12/15 - 12/18: Transferred to floor where she was found with apical left PTX, s/p chest tube placement. On Tigecycline and levaquin and micafungin Transferred back to ICU 12/18 for zosyn desenitization and tolerated all doses well, no itching, no rash. She c/o hunger and left arm pain and right facial pain (scratched). no air leak from chest tube Plan: LLQ abscess, colocutaneous fistula with perforation - ID on board - tigecycline Morbid obesity Diabetes - Will cont insulin regimen. TPN JACOB - IVF, appreciate nephrology, bicarb infusion, would like to avoid dialysis Septic shock - IVF and antibiotics tired and weak. She is recovering Left arm fracture - immobilized. PT/OT PTX - chest tube drainage minimal, no air leak PLAN TRANSFER TO [facility] TODAY Vitals Vitals Vital Signs Date Time Temp Pulse Resp B/P (MAP) Pulse Ox O2 Delivery O2 Flow Rate FiO2 12/20/18 10:19 18 95 Nasal Cannula 2.0 12/20/18 08:00 97.6 89 138/67 (90) 97.6 Physical Exam Physical Exam GENERAL: Propped up in bed, alert, relaxed appearance - looks better HEENT: Oral cavity clear, dentures LUNGS: Decreased breath sounds. nonlabored Left chest tube in place HEART: S1, S2 with no gallops or murmurs. ABDOMEN: Soft, obese. Bowel sounds present. LLQ wound packed - some brown stained drainage, Viola. : [place] EXTREMITIES: Trace edema, no cyanosis. Chronic venous stasis changes present. LUE edema, shoulder brace in place NEUROLOGIC: Alert, responds appropriately Port & LIJ clean SKIN: - no rash General: Alert, Cooperative Heart: Regular rate Lungs: Crackles Abdomen: Other (dressing intact) Extremities: No clubbing, Normal pulses Skin: No significant lesion, Other (dressing in place, drain in place) Labs LABS Chest radiograph 12/20/2018 7:33 AM INDICATION: Chest 2 COMPARISON: December 19, 2018 TECHNIQUE: Portable upright frontal view of the chest is provided. FINDINGS: The cardiomediastinal silhouette is within normal limits. Similar appearance of position of a left-sided thoracostomy tube and right chest wall infusion port catheter. Left subclavian central venous catheter is in similar position. There is improved aeration of the left lower lobe with persistent small left pleural effusion. Persistent left perihilar airspace disease is similar. No pneumothorax. Left total shoulder arthroplasty is identified. IMPRESSION: Improved aeration of the left lower lobe with persistent small left pleural effusion and left perihilar airspace disease. Brief Hospital Course Ms. Guerrero is a 73 old [sex] who presented with [COLO-CUTANEOUS FISTULA, ABSCESS ] CONDITION AT DISCHARGE: Improved Discharge Medications Current Medications Ondansetron HCl (Zofran) 4 mg PRN Q6HRS PRN IV NAUSEA/VOMITING; Start 12/12/18 at 12:15; Stop 12/13/18 at 10:37; Status DC Prochlorperazine Edisylate (Compazine) 10 mg PRN Q6HRS PRN IV NAUSEA/VOMITING, 2ND CHOICE; Start 12/12/18 at 12:15 Prochlorperazine (Compazine) 25 mg PRN Q12HR PRN [place] NAUSEA/VOMITING; Start at 12:15 Al Hydroxide/Mg Hydroxide (Mylanta Plus Xs) 30 ml PRN Q3HRS PRN PO HEARTBURN / GAS; Start 12/12/18 at 12:15 Calcium Carbonate/ Glycine (Tums) 500 mg PRN Q3HRS PRN PO UPSET STOMACH; Start 12/12/18 at 12:15 Zolpidem Tartrate (Ambien) 5 mg PRN QHS PRN PO INSOMNIA, MAY REPEAT IN 1HR; Start 12/12/18 at 12:15 Oxycodone HCl (Roxicodone) 5 mg PRN Q3HRS PRN PO BREAKTHROUGH PAIN Last administered on 12/17/18at 21:40; Start 12/12/18 at 12:15 Morphine Sulfate (Morphine Sulfate) 2 mg PRN Q2HR PRN IV MILD PAIN Last administered on 12/20/18at 10:19; Start 12/12/18 at 12:15 Acetaminophen (Tylenol) 650 mg PRN Q6HRS PRN PO Headaches, Temp > 101.5F; Start 12/12/18 at 12:15 Magnesium Hydroxide (Milk Of Magnesia) 2,400 mg PRN Q12HR PRN PO CONSTIPATION; Start 12/12/18 at 12:15 Bisacodyl (Dulcolax Supp) 10 mg PRN DAILY PRN [place] CONSTIPATION; Start 12/12/18 at 12:15; Stop 12/12/18 at 12:26; Status DC Enoxaparin Sodium (Lovenox 40mg Syringe) 40 mg Q24H SQ ; Start 12/12/18 at 13:00 ; Stop 12/12/18 at 13:00; Status DC Sodium Chloride 1,000 ml @ 100 mls/hr Q10H IV Last administered on 12/13/18at 08:42; Start 12/12/18 at 12:15; Stop 12/13/18 at 11:01; Status DC Famotidine (Pepcid Vial) 20 mg QHS IVP Last administered on 12/15/18at 21:09; Start 12/12/18 at 21:00; Stop 12/16/18 at 15:32; Status DC Acetaminophen (Tylenol Supp) 650 mg PRN Q6HRS PRN RC FEVER; Start 12/12/18 at 12:30 Albuterol Sulfate (Ventolin Neb Soln) 2.5 mg PRN Q6HRS PRN INH SHORTNESS OF BREATH Last administered on 12/15/18at 04:17; Start 12/12/18 at 12:30 Bisacodyl (Dulcolax Supp) 10 mg PRN DAILY PRN RC CONSTIPATION; Start 12/12/18 at 12:30 Insulin Glargine (Lantus) 20 units QHS SQ ; Start 12/12/18 at 21:00; Stop at 21:00; Status DC Nystatin (Nystop) 1 ada BID TP Last administered on 12/20/18at 08:05; Start at 13:00 Norepinephrine Bitartrate 250 ml @ 1.875 mls/ hr CONT PRN IV SEE I/O RECORD Last administered on 12/12/18at 18:17; Start 12/12/18 at 12:45; Stop 12/12/18 at 12:45; Status DC Norepinephrine Bitartrate 250 ml @ 1.875 mls/ hr CONT PRN IV SEE I/O RECORD; Start 12/12/18 at 12:30; Status Cancel Levofloxacin/ Dextrose (Levaquin Per Pharmacy) 1 each PRN DAILY PRN MC SEE COMMENTS; Start 12/12/18 at 12:30; Stop 12/16/18 at 13:54; Status DC Metronidazole 100 ml @ 100 mls/hr Q8HRS IV Last administered on 12/13/18at 05: 53; Start 12/12/18 at 14:00; Stop 12/13/18 at 11:32; Status DC Insulin Glargine (Lantus) 10 units QHS SQ Last administered on 12/12/18at 22:11 ; Start 12/12/18 at 21:00; Stop 12/13/18 at 20:34; Status DC Levofloxacin/ Dextrose 100 ml @ 100 mls/hr Q24H IV Last administered on at 14:11; Start 12/12/18 at 13:00; Stop 12/12/18 at 15:54; Status DC Enoxaparin Sodium (Lovenox 40mg Syringe) 40 mg Q24H SQ Last administered on at 14:16; Start 12/12/18 at 13:00; Stop 12/15/18 at 07:40; Status DC Fentanyl Citrate (Fentanyl 2ml Vial) 25 mcg PRN Q5MIN PRN IV MILD PAIN; Start 12/12/18 at 14:00; Stop 12/13/18 at 13:59; Status DC Fentanyl Citrate (Fentanyl 2ml Vial) 50 mcg PRN Q5MIN PRN IV MODERATE TO SEVERE PAIN; Start 12/12/18 at 14:00; Stop 12/13/18 at 13:59; Status DC Morphine Sulfate (Morphine Sulfate) 1 mg PRN Q10MIN PRN IV PAIN; Start at 14:15; Stop 12/13/18 at 10:38; Status DC Ringer's Solution 1,000 ml @ 30 mls/hr Q24H IV ; Start 12/12/18 at 13:55; Stop 12/13/18 at 01:54; Status DC Lidocaine HCl (Xylocaine-Mpf 1% 2ml Vial) 2 ml 1X PRN PRN ID IV START; Start at 14:00; Stop 12/13/18 at 13:59; Status DC Hydromorphone HCl (Dilaudid) 0.5 mg PRN Q10MIN PRN IV SEV PAIN, Second choice; Start 12/12/18 at 14:00; Stop 12/13/18 at 13:59; Status DC Prochlorperazine Edisylate (Compazine) 5 mg PACU PRN PRN IV NAUSEA, MRX1; Start 12/12/18 at 14:00; Stop 12/13/18 at 13:59; Status DC Tigecycline 100 mg/Dextrose 100 ml @ 200 mls/hr 1X ONCE IV Last administered on 12/12/18at 17:40; Start 12/12/18 at 15:15; Stop 12/12/18 at 15:44; Status DC Tigecycline 50 mg/ Dextrose 50 ml @ 100 mls/hr Q12H IV Last administered on at 02:44; Start 12/13/18 at 03:00; Stop 12/19/18 at 07:03; Status DC Rocuronium Otisco (Zemuron) 50 mg STK-MED ONCE .ROUTE ; Start 12/12/18 at 15:37 ; Stop 12/12/18 at 15:39; Status DC Fentanyl Citrate (Fentanyl 2ml Vial) 100 mcg STK-MED ONCE .ROUTE ; Start at 15:37; Stop 12/12/18 at 15:39; Status DC Ketamine HCl (Ketamine) 50 mg STK-MED ONCE .ROUTE ; Start 12/12/18 at 15:49; Stop 12/12/18 at 15:51; Status DC Propofol 20 ml @ As Directed STK-MED ONCE IV ; Start 12/12/18 at 15:49; Stop at 15:51; Status DC Lidocaine HCl (Lidocaine Pf 2% Vial) 5 ml STK-MED ONCE .ROUTE ; Start 12/12/18 at 15:49; Stop 12/12/18 at 15:51; Status DC Dexamethasone Sodium Phosphate (Decadron) 20 mg STK-MED ONCE .ROUTE ; Start at 15:49; Stop 12/12/18 at 15:51; Status DC Ondansetron HCl (Zofran) 4 mg STK-MED ONCE .ROUTE ; Start 12/12/18 at 15:49; Stop 12/12/18 at 15:51; Status DC Phenylephrine HCl (PHENYLEPHRINE in 0.9% NACL PF) 1 mg STK-MED ONCE IV ; Start 12/12/18 at 15:49; Stop 12/12/18 at 15:51; Status DC Desflurane (Suprane) 90 ml STK-MED ONCE IH ; Start 12/12/18 at 15:50; Stop 12/12 at 15:52; Status DC Levofloxacin/ Dextrose 100 ml @ 100 mls/hr Q48H IV Last administered on at 15:13; Start 12/13/18 at 16:00; Stop 12/14/18 at 13:26; Status DC Esmolol HCl (Brevibloc) 100 mg STK-MED ONCE IV ; Start 12/12/18 at 16:24; Stop 12/12/18 at 16:26; Status DC Rocuronium Otisco (Zemuron) 100 mg STK-MED ONCE .ROUTE ; Start 12/12/18 at 16: 28; Stop 12/12/18 at 16:30; Status DC Phenylephrine HCl (Veto-Synephrine Inj) 10 mg STK-MED ONCE .ROUTE ; Start at 16:41; Stop 12/12/18 at 16:43; Status DC Cellulose (Surgicel Hemostat 4x8) 1 each STK-MED ONCE .ROUTE ; Start 12/12/18 at 16:47; Stop 12/12/18 at 16:49; Status DC Propofol 100 ml @ 0 mls/hr CONT PRN IV SEE PROTOCOL Last administered on at 05:52; Start 12/12/18 at 17:15; Stop 12/14/18 at 13:15; Status DC Sodium Chloride (Normal Saline Flush) 3 ml QSHIFT PRN IV AFTER MEDS AND BLOOD DRAWS; Start 12/12/18 at 17:30 Hydromorphone HCl (Dilaudid) 1 mg PRN Q3HRS PRN IV PAIN SEVERE Last administered on 12/17/18at 17:03; Start 12/12/18 at 17:30 Ondansetron HCl (Zofran) 4 mg PRN Q6HRS PRN IV NAUESA, 1ST CHOICE; Start at 17:30 Midazolam HCl (Versed) 2 mg PRN Q30MIN PRN IV SEE COMMENTS.; Start 12/12/18 at 17:30; Stop 12/14/18 at 13:20; Status DC Midazolam HCl (Versed) 5 mg STK-MED ONCE .ROUTE ; Start 12/12/18 at 17:23; Stop 12/12/18 at 17:25; Status DC Norepinephrine Bitartrate 250 ml @ 1.875 mls/ hr CONT PRN IV SEE I/O RECORD; Start 12/12/18 at 18:15 Sodium Chloride 1,000 ml @ 1,000 mls/hr 1X ONCE IV Last administered on at 18:45; Start 12/12/18 at 18:15; Stop 12/12/18 at 19:14; Status DC Insulin Human Lispro (HumaLOG) 8 units 1X ONCE SQ Last administered on at 22:15; Start 12/12/18 at 22:30; Stop 12/12/18 at 22:31; Status DC Insulin Human Regular (HumuLIN R VIAL) 10 unit 1X ONCE IV Last administered on 12/13/18at 08:40; Start 12/13/18 at 07:30; Stop 12/13/18 at 07:46; Status DC Insulin Human Lispro (HumaLOG) 6 units 1X ONCE SQ Last administered on at 08:41; Start 12/13/18 at 07:30; Stop 12/13/18 at 07:46; Status DC Insulin Human Lispro (HumaLOG) 0-7 UNITS Q4HRS SQ ; Start 12/13/18 at 08:00; Stop 12/13/18 at 20:34; Status DC Dextrose (Dextrose 50%-Water Syringe) 12.5 gm PRN Q15MIN PRN IV SEE COMMENTS; Start 12/13/18 at 08:00; Stop 12/14/18 at 12:57; Status DC Sodium Chloride 1,000 ml @ 1,000 mls/hr 1X ONCE IV Last administered on at 10:14; Start 12/13/18 at 10:00; Stop 12/13/18 at 11:00; Status DC Sodium Bicarbonate (Sodium Bicarb Adult 8.4% Syr) 50 meq 1X ONCE IV Last administered on 12/13/18at 10:14; Start 12/13/18 at 10:00; Stop 12/13/18 at 10:08 ; Status DC Insulin Human Regular 150 unit/ Sodium Chloride 151.5 ml @ 0 mls/hr CONT PRN PRN IV PER PROTOCOL; Start 12/13/18 at 11:00; Stop 12/13/18 at 20:34; Status DC Potassium Chloride/Water 100 ml @ 100 mls/hr PRN Q1HR PRN IV SEE COMMENTS; Start 12/13/18 at 11:00; Stop 12/19/18 at 11:39; Status DC Potassium Chloride/Water 100 ml @ 100 mls/hr PRN Q1HR PRN IV SEE COMMENTS; Start 12/13/18 at 11:00; Stop 12/19/18 at 11:39; Status DC Potassium Chloride/Water 100 ml @ 100 mls/hr PRN Q1HR PRN IV SEE COMMENTS; Start 12/13/18 at 11:00; Stop 12/19/18 at 11:40; Status DC Sodium Bicarbonate 50 meq/Sodium Chloride 1,050 ml @ 150 mls/hr Q7H IV Last administered on 12/15/18at 07:53; Start 12/13/18 at 11:00; Stop 12/15/18 at 14:19 ; Status DC Albumin Human 500 ml @ 125 mls/hr 1X ONCE IV Last administered on 12/13/18at 14:52; Start 12/13/18 at 11:30; Stop 12/13/18 at 15:29; Status DC Vitamin A/Vitamin D (Vitamin A & D Ointment) 1 ada PRN TID PRN TP SKIN PROTECTION Last administered on 12/15/18at 20:45; Start 12/13/18 at 14:00 Magnesium Sulfate/ Dextrose 100 ml @ 25 mls/hr 1X ONCE IV Last administered on 12/13/18at 19:24; Start 12/13/18 at 18:30; Stop 12/13/18 at 22:29; Status DC Potassium Chloride/Water 100 ml @ 100 mls/hr Q1HR IV Last administered on 12/13at 21:42; Start 12/13/18 at 19:00; Stop 12/13/18 at 22:59; Status DC Fentanyl Citrate (Fentanyl 2ml Vial) 25 mcg PRN Q2HR PRN IV MODERATE PAIN Last administered on 12/18/18at 02:48; Start 12/13/18 at 18:30 Dextrose/Sodium Chloride 1,000 ml @ 250 mls/hr Q4H IV Last administered on at 20:00; Start 12/13/18 at 20:00; Stop 12/13/18 at 20:34; Status DC Insulin Glargine (Lantus) 20 units QHS SQ Last administered on 12/19/18at 21:00 ; Start 12/13/18 at 21:00 Insulin Human Lispro (HumaLOG) 0-9 UNITS Q4HRS SQ Last administered on at 17:06; Start 12/14/18 at 00:00; Stop 12/17/18 at 17:52; Status DC Dextrose (Dextrose 50%-Water Syringe) 12.5 gm PRN Q15MIN PRN IV SEE COMMENTS; Start 12/13/18 at 20:30 Albumin Human 500 ml @ 125 mls/hr 1X ONCE IV Last administered on 12/14/18at 00:09; Start 12/13/18 at 23:15; Stop 12/14/18 at 03:14; Status DC Levofloxacin/ Dextrose 150 ml @ 100 mls/hr Q48H IV Last administered on 1/25/ 19at 16:09; Start 12/15/18 at 16:00; Stop 12/16/18 at 13:54; Status DC Enoxaparin Sodium (Lovenox 60mg Syringe) 60 mg Q12HR SQ Last administered on at 08:04; Start 12/15/18 at 09:00 Sodium Chloride 1,000 ml @ 75 mls/hr [id number] IV Last administered on at 01:46; Start 12/15/18 at 15:00; Stop 12/19/18 at 21:59; Status DC Lactobacillus Rhamnosus (Culturelle) 1 cap BID PO Last administered on at 21:40; Start 12/16/18 at 21:00; Stop 12/19/18 at 10:08; Status DC Famotidine (Pepcid) 20 mg QHS PO Last administered on 12/17/18at 21:40; Start at 21:00; Stop 12/18/18 at 20:23; Status DC Magnesium Sulfate 50 ml @ 25 mls/hr 1X ONCE IV Last administered on 12/17/18at 13:17; Start 12/17/18 at 13:15; Stop 12/17/18 at 15:14; Status DC Micafungin Sodium 100 mg/Dextrose 100 ml @ 100 mls/hr Q24H IV Last administered on 12/19/18at 13:18; Start 12/17/18 at 14:00 Insulin Human Lispro (HumaLOG) 0-9 UNITS TIDWMEALHC SQ Last administered on at 08:13; Start 12/17/18 at 21:00 Piperacillin Sod/ Tazobactam Sod 3.375 gm/Sodium Chloride 100 ml @ 200 mls/hr 1X ONCE IV Last administered on 12/18/18at 16:30; Start 12/18/18 at 09:45; Stop 12/18/18 at 10:14; Status DC Piperacillin Sod/ Tazobactam Sod 0.168 gm/Dextrose 50 ml @ 600 mls/hr 1X ONCE IV Last administered on 12/18/18at 14:02; Start 12/18/18 at 10:00; Stop at 10:04; Status DC Piperacillin Sod/ Tazobactam Sod 0.61592 gm/ Dextrose 100 ml @ 1,200 mls/hr 1X ONCE IV Last administered on 12/18/18at 12:26; Start 12/18/18 at 10:00; Stop 12/18/18 at 10:04; Status DC Perflutren Protein Type A Microsphe (Optison) 0.66 mg STK-MED ONCE IV ; Start at 12:44; Stop 12/18/18 at 12:46; Status DC Perflutren Protein Type A Microsphe (Optison) 0.66 mg PRN 1X PRN IV SEE COMMENTS; Start 12/18/18 at 13:45; Stop 12/19/18 at 13:44; Status DC Lidocaine/Sodium Bicarbonate (Buffered Lidocaine 1%) 3 ml STK-MED ONCE .ROUTE ; Start 12/18/18 at 15:16; Stop 12/18/18 at 15:18; Status DC Lidocaine/Sodium Bicarbonate (Buffered Lidocaine 1%) 3 ml 1X ONCE INJ Last administered on 12/18/18at 16:00; Start 12/18/18 at 16:00; Stop 12/18/18 at 16:01 ; Status DC Famotidine (Pepcid Vial) 20 mg QHS IVP Last administered on 12/19/18at 21:00; Start 12/18/18 at 21:00 Piperacillin Sod/ Tazobactam Sod 3.375 gm/Sodium Chloride 50 ml @ 100 mls/hr Q6HRS IV Last administered on 12/20/18at 06:16; Start 12/19/18 at 07:00 Info (Tpn Per Pharmacy) 1 each PRN DAILY PRN MC SEE COMMENTS Last administered on 12/19/18at 13:28; Start 12/19/18 at 10:00 Sodium Phosphate 15 mmol/Dextrose 255 ml @ 62.5 mls/hr 1X ONCE IV Last administered on 12/19/18at 13:16; Start 12/19/18 at 12:30; Stop 12/19/18 at 16:34 ; Status DC Magnesium Sulfate 50 ml @ 25 mls/hr 1X ONCE IV Last administered on 12/19/18at 13:00; Start 12/19/18 at 13:00; Stop 12/19/18 at 14:59; Status DC Sodium Chloride 90 meq/Potassium Chloride 50 meq/ Potassium Phosphate 18 mmol/ Magnesium Sulfate 12 meq/Calcium Gluconate 10 meq/ Multivitamins 10 ml/Chromium / Copper/Manganese/ Seleni/Zn 1 ml/ Total Parenteral Nutrition/Amino Acids/ Dextrose/ Fat Emulsion Intravenous 1,512 ml @ 63 mls/hr TPN CONT IV Last administered on 12/19/18at 22:56; Start 12/19/18 at 22:00; Stop 12/20/18 at 21:59 Perflutren Protein Type A Microsphe (Optison) 0.66 mg STK-MED ONCE IV ; Start at 13:00; Stop 12/19/18 at 14:24; Status DC Metoprolol Tartrate (Lopressor Vial) 5 mg PRN Q5MIN PRN IVP TACHYCARDIA; Start 12/19/18 at 15:00 Active Scripts Active Reported Potassium Chloride 20 Meq Tablet.er 20 Meq PO TIDWMEALS Roxicodone (Oxycodone HCl) 5 Mg Tablet 5 Mg PO PRN Q4HRS PRN Nystatin 1 Each Powder.ea. 1 Each MC BID Levemir (Insulin Detemir) 100 Unit/1 Ml Vial 20 Unit SQ HS Novolog (Insulin Aspart) 100 Unit/1 Ml Cartridge 0 SQ QIDACHS Guaifenesin 600 Mg Tablet.er 600 Mg PO BID Bisacodyl 10 Mg Supp.rect 10 Mg RC PRN DAILY PRN Alprazolam 1 Mg Tablet 1 Tab PO TID PRN Acetaminophen Supp (Acetaminophen) 650 Mg Supp.rect 650 Mg RC PRN Q6HRS PRN Proair Hfa Inhaler (Albuterol Sulfate) 8.5 Gm Hfa.aer.ad 1 Puff INH PRN Q6HRS PRN Levothyroxine Sodium 75 Mcg Tablet 1 Tab PO DAILY Vital Signs Vital Signs Date Time Temp Pulse Resp B/P (MAP) Pulse Ox O2 Delivery O2 Flow Rate FiO2 12/20/18 10:19 18 95 Nasal Cannula 2.0 12/20/18 08:00 97.6 89 138/67 (90) 97.6 Labs Laboratory Tests Test 12/18/18 21:46 12/19/18 05:00 12/19/18 09:59 12/19/18 16:50 Glucose (Fingerstick) 121 mg/dL (70-99) 152 mg/dL (70-99) 258 mg/dL (70-99) White Blood Count 11.3 x10^3/uL (4.0-11.0) Red Blood Count 3.10 x10^6/uL (3.50-5.40) Hemoglobin 9.0 g/dL (12.0-15.5) Hematocrit 27.9 % (36.0-47.0) Mean Corpuscular Volume 90 fL (79-100) Mean Corpuscular Hemoglobin 29 pg (25-35) Mean Corpuscular Hemoglobin Concent 32 g/dL (31-37) Red Cell Distribution Width 15.0 % (11.5-14.5) Platelet Count 289 x10^3/uL (140-400) Neutrophils (%) (Auto) 69 % (31-73) Lymphocytes (%) (Auto) 22 % (24-48) Monocytes (%) (Auto) 8 % (0-9) Eosinophils (%) (Auto) 1 % (0-3) Basophils (%) (Auto) 0 % (0-3) Neutrophils # (Auto) 7.8 x10^3uL (1.8-7.7) Lymphocytes # (Auto) 2.5 x10^3/uL (1.0-4.8) Monocytes # (Auto) 0.9 x10^3/uL (0.0-1.1) Eosinophils # (Auto) 0.1 x10^3/uL (0.0-0.7) Basophils # (Auto) 0.0 x10^3/uL (0.0-0.2) Sodium Level 141 mmol/L (136-145) Potassium Level 4.1 mmol/L (3.5-5.1) Chloride Level 104 mmol/L (98-107) Carbon Dioxide Level 32 mmol/L (21-32) Anion Gap 5 (6-14) Blood Urea Nitrogen 29 mg/dL (7-20) Creatinine 0.9 mg/dL (0.6-1.0) Estimated GFR (Cockcroft-Gault) 61.2 BUN/Creatinine Ratio 32 (6-20) Glucose Level 142 mg/dL (70-99) Calcium Level 7.5 mg/dL (8.5-10.1) Phosphorus Level 2.5 mg/dL (2.6-4.7) Magnesium Level 1.7 mg/dL (1.8-2.4) Total Bilirubin 1.7 mg/dL (0.2-1.0) Aspartate Amino Transf (AST/SGOT) 36 U/L (15-37) Alanine Aminotransferase (ALT/SGPT) 21 U/L (14-59) Alkaline Phosphatase 185 U/L (46-116) Total Protein 5.1 g/dL (6.4-8.2) Albumin 1.5 g/dL (3.4-5.0) Albumin/Globulin Ratio 0.4 (1.0-1.7) Triglycerides Level 77 mg/dL (0-150) Test 12/19/18 20:48 12/20/18 06:20 12/20/18 08:03 Glucose (Fingerstick) 157 mg/dL (70-99) 266 mg/dL (70-99) White Blood Count 12.3 x10^3/uL (4.0-11.0) Red Blood Count 3.11 x10^6/uL (3.50-5.40) Hemoglobin 9.0 g/dL (12.0-15.5) Hematocrit 28.3 % (36.0-47.0) Mean Corpuscular Volume 91 fL (79-100) Mean Corpuscular Hemoglobin 29 pg (25-35) Mean Corpuscular Hemoglobin Concent 32 g/dL (31-37) Red Cell Distribution Width 15.1 % (11.5-14.5) Platelet Count 278 x10^3/uL (140-400) Neutrophils (%) (Auto) 72 % (31-73) Lymphocytes (%) (Auto) 20 % (24-48) Monocytes (%) (Auto) 7 % (0-9) Eosinophils (%) (Auto) 0 % (0-3) Basophils (%) (Auto) 0 % (0-3) Neutrophils # (Auto) 8.9 x10^3uL (1.8-7.7) Lymphocytes # (Auto) 2.5 x10^3/uL (1.0-4.8) Monocytes # (Auto) 0.9 x10^3/uL (0.0-1.1) Eosinophils # (Auto) 0.0 x10^3/uL (0.0-0.7) Basophils # (Auto) 0.0 x10^3/uL (0.0-0.2) Sodium Level 142 mmol/L (136-145) Potassium Level 4.0 mmol/L (3.5-5.1) Chloride Level 107 mmol/L (98-107) Carbon Dioxide Level 31 mmol/L (21-32) Anion Gap 4 (6-14) Blood Urea Nitrogen 28 mg/dL (7-20) Creatinine 0.9 mg/dL (0.6-1.0) Estimated GFR (Cockcroft-Gault) 61.2 BUN/Creatinine Ratio 31 (6-20) Glucose Level 258 mg/dL (70-99) Calcium Level 7.6 mg/dL (8.5-10.1) Phosphorus Level 2.4 mg/dL (2.6-4.7) Magnesium Level 1.9 mg/dL (1.8-2.4) Total Bilirubin 2.1 mg/dL (0.2-1.0) Aspartate Amino Transf (AST/SGOT) 40 U/L (15-37) Alanine Aminotransferase (ALT/SGPT) 30 U/L (14-59) Alkaline Phosphatase 196 U/L (46-116) Total Protein 5.1 g/dL (6.4-8.2) Albumin 1.4 g/dL (3.4-5.0) Albumin/Globulin Ratio 0.4 (1.0-1.7) Laboratory Tests Test 12/19/18 16:50 12/19/18 20:48 12/20/18 06:20 12/20/18 08:03 Glucose (Fingerstick) 258 mg/dL (70-99) 157 mg/dL (70-99) 266 mg/dL (70-99) White Blood Count 12.3 x10^3/uL (4.0-11.0) Red Blood Count 3.11 x10^6/uL (3.50-5.40) Hemoglobin 9.0 g/dL (12.0-15.5) Hematocrit 28.3 % (36.0-47.0) Mean Corpuscular Volume 91 fL (79-100) Mean Corpuscular Hemoglobin 29 pg (25-35) Mean Corpuscular Hemoglobin Concent 32 g/dL (31-37) Red Cell Distribution Width 15.1 % (11.5-14.5) Platelet Count 278 x10^3/uL (140-400) Neutrophils (%) (Auto) 72 % (31-73) Lymphocytes (%) (Auto) 20 % (24-48) Monocytes (%) (Auto) 7 % (0-9) Eosinophils (%) (Auto) 0 % (0-3) Basophils (%) (Auto) 0 % (0-3) Neutrophils # (Auto) 8.9 x10^3uL (1.8-7.7) Lymphocytes # (Auto) 2.5 x10^3/uL (1.0-4.8) Monocytes # (Auto) 0.9 x10^3/uL (0.0-1.1) Eosinophils # (Auto) 0.0 x10^3/uL (0.0-0.7) Basophils # (Auto) 0.0 x10^3/uL (0.0-0.2) Sodium Level 142 mmol/L (136-145) Potassium Level 4.0 mmol/L (3.5-5.1) Chloride Level 107 mmol/L (98-107) Carbon Dioxide Level 31 mmol/L (21-32) Anion Gap 4 (6-14) Blood Urea Nitrogen 28 mg/dL (7-20) Creatinine 0.9 mg/dL (0.6-1.0) Estimated GFR (Cockcroft-Gault) 61.2 BUN/Creatinine Ratio 31 (6-20) Glucose Level 258 mg/dL (70-99) Calcium Level 7.6 mg/dL (8.5-10.1) Phosphorus Level 2.4 mg/dL (2.6-4.7) Magnesium Level 1.9 mg/dL (1.8-2.4) Total Bilirubin 2.1 mg/dL (0.2-1.0) Aspartate Amino Transf (AST/SGOT) 40 U/L (15-37) Alanine Aminotransferase (ALT/SGPT) 30 U/L (14-59) Alkaline Phosphatase 196 U/L (46-116) Total Protein 5.1 g/dL (6.4-8.2) Albumin 1.4 g/dL (3.4-5.0) Albumin/Globulin Ratio 0.4 (1.0-1.7) Allergies Allergies Coded Allergies Type Severity Reaction Last Updated Verified Penicillins Allergy Intermediate 12/08/16 Yes Sulfa (Sulfonamide Antibiotics) Allergy Intermediate 12/08/16 Yes aspirin Allergy Intermediate 12/08/16 Yes cephalexin Allergy Intermediate 04/19/15 Yes diazepam Allergy Intermediate 12/08/16 Yes diphenhydramine Allergy Intermediate 12/08/16 Yes erythromycin base Allergy Intermediate 12/08/16 Yes Disposition/Orders: D/C to Another Facility ([facility]) Patient Instructions D/C PLANNING 40 MIN SAMI CHENEY MD Dec 20, 2018 11:05
--- NOTE | 2018-12-20 11:10 | DISCH ---
DISCHARGE DISCHARGE INFORMATION: CONDITION ON DISCHARGE: Stable CODE STATUS: Code Status: Other LONGTERM: SNF STAY <30 DAYS: No HOSPICE: HOSPICE: No HOSPICE EVAL & TREAT: No LTAC: ADMIT TO LTAC: Yes POST DISCHARGE ORDERS: ACTIVITY ORDERS: Bedrest today WEIGHT BEARING STATUS: No restrictions DIET AFTER DISCHARGE: WOUND/INCISION CARE: Change dressing TREATMENT/EQUIPMENT ORDERS: ADAPTIVE EQUIPMENT NEEDED: None RESPIRATORY EQUIPMENT NEEDED: Oxygen Physical Therapy For: Evalulation/Treatment Occupational Therapy For: Evaluation/Treatment Speech Language Pathology For: Evaluation/Treatment DISCHARGE MEDICATIONS: Home Meds Reported Medications Potassium Chloride (POTASSIUM CHLORIDE) 20 Meq Tablet.er, 20 MEQ PO TIDWMEALS, TAB.SR 12/20/16 Oxycodone HCl (Roxicodone) 5 Mg Tablet, 5 MG PO PRN Q4HRS PRN for PAIN 12/20/16 Nystatin (NYSTATIN) 1 Each Powder.ea., 1 EACH MC BID 12/20/16 Insulin Detemir (LEVEMIR) 100 Unit/1 Ml Vial, 20 UNIT SQ HS, VIAL 12/20/16 Insulin Aspart (NOVOLOG) 100 Unit/1 Ml Cartridge, 0 SQ QIDACHS, EACH 12/20/16 Guaifenesin (GUAIFENESIN) 600 Mg Tablet.er, 600 MG PO BID 12/20/16 Bisacodyl (BISACODYL) 10 Mg Supp.rect, 10 MG RC PRN DAILY PRN for CONSTIPATION, SUPP.RECT 0 Refills 12/20/16 Alprazolam (ALPRAZOLAM) 1 Mg Tablet, 1 TAB PO TID PRN for ANXIETY / AGITATION, # 90 TAB 12/20/16 Acetaminophen (ACETAMINOPHEN SUPP) 650 Mg Supp.rect, 650 MG RC PRN Q6HRS PRN for FEVER, SUPP.RECT 12/20/16 Albuterol Sulfate (PROAIR HFA INHALER) 8.5 Gm Hfa.aer.ad, 1 PUFF INH PRN Q6HRS PRN for SHORTNESS OF BREATH, INHALER 0 Refills 06/22/16 Levothyroxine Sodium (LEVOTHYROXINE SODIUM) 75 Mcg Tablet, 1 TAB PO DAILY, #90 TAB 1 Refill 04/20/15 SAMI CHENEY MD Dec 20, 2018 11:10
[2018-12-20] MEDS ORDERED: ZOLP5TAB PO (11:15)
[2018-12-20] MEDS ORDERED: ENOX60DI3 SQ (11:15)
--- NOTE | 2018-12-20 11:20 | NUR ---
wound care patient seen per f/u for abdomen dressing change to the [facility] abdomen, per Dr. Lombardi to pack the distal part of the wound with 1/4 strength Dakins vag packing and cover the exposed bowel with Xeroform gauze and saline moistened vag packing to the proximal area of the wound, place abd pads over and cover with tape, change daily. the dressing was removed and the wound was cleaned and redressed per Dr. Lombardi's orders. spoke to Dr. Lombardi regarding the findings soft stool in the wound. wound care will continue to f/u.
[2018-12-20] MEDS: TPN PER PHARMACY MC PRN ×2 (11:24→11:32)
[2018-12-20] MEDS: HYDROmorphone 2 MG/ML VIAL IV PRN (11:28)
--- NOTE | 2018-12-20 11:33 | NUR ---
Report was given to Cat RN at 0930, she will be taking over care of pt for rest of the day.
[2018-12-20 12:00] VITALS: BP 155/67
--- NOTE | 2018-12-20 12:48 | NUR ---
DEBRA following. Discussed with RN, pt can discharge to [facility] today. DEBRA phoned and faxed discharge paperwork to [facility]. Fire Department will transport pt via non emergent ambulance at 1300. RN and family notified. Pt's /DPOA Ponce signed pt choice and rights letter over the phone, placed on chart.
--- NOTE | 2018-12-20 13:42 | PDOC ---
Provider Note Provider Note SURG to [facility] today continue wound care, TPN RIGO GUALLPA MD Dec 20, 2018 13:42
--- NOTE | 2018-12-20 14:18 | NUR ---
Discharge Note: CASS CHAPARRO [address] [place] [address] Discharge instructions and discharge home medications reviewed with and a copy given. All questions have been answered and understanding verbalized. Patient discharged to [facility] via stretcher. Report called to nursing landscape supervisor at accepting facility.
== END 2018-12-20 14:23 | DRG 853 ==
LOC: 1 WEST ICU 12:00 → 4 NORTH 12-15 17:29 → 1 WEST ICU 12-18 10:52 → 4 NORTH 12-19 16:35
PROVIDERS: ADMIT Internal Medicine; ATTEND Internal Medicine
PROC: 0DQE0ZZ Repair Large Intestine, Open Approach (ICD-10-PCS; 2018-12-12)
PROC: 0DBE0ZX Excision of Large Intestine, Open Approach, Diagnostic (ICD-10-PCS; 2018-12-12)
PROC: 5A1935Z Respiratory Ventilation, Less than 24 Consecutive Hours (ICD-10-PCS; 2018-12-12)
PROC: 0JB80ZZ Excision of Abdomen Subcutaneous Tissue and Fascia, Open Approach (ICD-10-PCS; principal; 2018-12-12 15:30)
PROC: 02HV33Z Insertion of Infusion Device into Superior Vena Cava, Percutaneous Approach (ICD-10-PCS; 2018-12-13)
PROC: 5A09357 Assistance with Respiratory Ventilation, Less than 24 Consecutive Hours, Continuous Positive Airway Pressure (ICD-10-PCS; 2018-12-17)
PROC: 0W9B30Z Drainage of Left Pleural Cavity with Drainage Device, Percutaneous Approach (ICD-10-PCS; 2018-12-18)
DX: A41.9 Sepsis, unspecified organism (principal); K63.1 Perforation of intestine (nontraumatic); E43 Unspecified severe protein-calorie malnutrition; R65.21 Severe sepsis with septic shock; R57.1 Hypovolemic shock; J96.00 Acute respiratory failure, unspecified whether with hypoxia or hypercapnia; S42.302A Unspecified fracture of shaft of humerus, left arm, initial encounter for closed fracture; E87.1 Hypo-osmolality and hyponatremia; N17.9 Acute kidney failure, unspecified; L02.211 Cutaneous abscess of abdominal wall; K43.6 Other and unspecified ventral hernia with obstruction, without gangrene; Z68.44 Body mass index [BMI] 60.0-69.9, adult; I47.2 Ventricular tachycardia; J93.83 Other pneumothorax; K63.2 Fistula of intestine; J44.9 Chronic obstructive pulmonary disease, unspecified; E66.01 Morbid (severe) obesity due to excess calories; E11.42 Type 2 diabetes mellitus with diabetic polyneuropathy; E11.65 Type 2 diabetes mellitus with hyperglycemia; I10 Essential (primary) hypertension; E78.5 Hyperlipidemia, unspecified; F32.9 Major depressive disorder, single episode, unspecified; F41.9 Anxiety disorder, unspecified; G89.4 Chronic pain syndrome; I87.8 Other specified disorders of veins; M79.7 Fibromyalgia; B95.2 Enterococcus as the cause of diseases classified elsewhere; B96.4 Proteus (mirabilis) (morganii) as the cause of diseases classified elsewhere; W19.XXXA Unspecified fall, initial encounter; Y93.89 Activity, other specified; Y92.89 Other specified places as the place of occurrence of the external cause; Y99.8 Other external cause status; Z88.2 Allergy status to sulfonamides; Z87.19 Personal history of other diseases of the digestive system; Z90.710 Acquired absence of both cervix and uterus; Z88.6 Allergy status to analgesic agent; Z88.1 Allergy status to other antibiotic agents; Z88.0 Allergy status to penicillin; Z88.8 Allergy status to other drugs, medicaments and biological substances; Z98.84 Bariatric surgery status; Z91.81 History of falling
CPT/HCPCS: 32557; 36415; 36600; 71045; 73020; 73060; 73070; 74176; 80048; 80053; 81001; 82805; 82962; 83605; 83735; 84100; 84145; 84443; 84478; 85007; 85025; 85027; 85610; 86850; 86900; 86901; 87070; 87071; 87075; 87186; 87205; 87641; 88304; 93971; 94002; 94003; 94640; 94760; A4215; A7015; C1729; C1892; C1894; C8929; J0610; J1100; J1170; J1650; J1815; J1956; J2001; J2248; J2270; J2370; J2405; J2543; J2704; J3010; J3243; J3475; J3480; J3490; J7030; J7613; P9045; Q9956; 97535; A4461; G0378

== ENCOUNTER 2019-10-12 20:47 | Inpatient (IN) | payer MEDICARE ==
[~2019-10-12] VITALS: Ht 147.3 cm; Wt 126.2 kg
[~2019-10-12 20:47] MED LIST changes: +ENOX60DI3 SQ; +OXYB5TAB10 PO; -OXYB5TAB7 PO; +ZOLP5TAB PO
--- NOTE | 2019-10-12 21:11 | PHYS DOC ---
Past Medical History Past Medical History: UTI Past Surgical History: Other Additional Past Surgical Histo: HERNIA REPAIR Alcohol Use: None Drug Use: None Adult General Chief Complaint Chief Complaint: MULTIPLE COMPLAINTS HPI HPI 74-year-old female underlying history of chronic respiratory failure, COPD, hypertension, morbidly obese presents to the emergency department with complaints of wound problem. Patient was seen at this facility and generally 2018 at that time had surgical procedure for abdominal abscess secondary to hernia with incarceration and perforated colon. She was admitted at that time with septic shock. He presents today with complaints of stool coming from her left lower quadrant or previous surgical procedure was completed. She denies any complaints of nausea, vomiting, abdominal pain, fever. Per the prison patient started having feces from the left lower quadrant today. Review of Systems Review of Systems Constitutional: Denies fever or chills [] Respiratory: Chronic SOB Cardiovascular: No additional information not addressed in HPI [] GI: Denies abdominal pain, nausea, vomiting, bloody stools or diarrhea [] : Denies dysuria or hematuria [] Musculoskeletal: Denies back pain or joint pain [] Integument: Denies rash or skin lesions [] Neurologic: Denies headache, focal weakness or sensory changes [] All other systems were reviewed and found to be within normal limits, except as documented in this note. Current Medications Current Medications Current Medications Medications (Trade) Dose Ordered Sig/Kaleb Start Time Stop Time Status Last Admin Dose Admin Haloperidol Lactate (Haldol Inj) 1 mg 1X ONCE 10/12/19 22:15 10/12/19 22:16 DC 10/12/19 22:11 1 MG Info (CONTRAST GIVEN -- Rx MONITORING) 1 each PRN DAILY PRN 10/12/19 21:45 10/14/19 21:44 Iohexol (Omnipaque 300 Mg/ml) 75 ml 1X ONCE 10/12/19 21:30 10/12/19 21:31 DC Meropenem 1 gm/ Sodium Chloride 100 ml @ 200 mls/hr 1X ONCE 10/12/19 21:15 10/12/19 21:31 DC Piperacillin Sod/ Tazobactam Sod 4.5 gm/Sodium Chloride 100 ml @ 200 mls/hr 1X ONCE 10/12/19 21:30 10/12/19 21:59 DC 10/12/19 22:10 200 MLS/HR Sodium Chloride 1,000 ml @ 1,000 mls/hr 1X ONCE 10/12/19 21:30 10/12/19 22:29 DC 10/12/19 22:02 1,000 MLS/HR Vancomycin HCl (Vanco Per Pharmacy) 1 each PRN DAILY PRN 10/12/19 21:15 Vancomycin HCl 2 gm/Sodium Chloride 500 ml @ 250 mls/hr 1X ONCE 10/12/19 21:30 10/12/19 23:29 DC 10/12/19 21:59 250 MLS/HR Allergies Allergies Allergies Coded Allergies Type Severity Reaction Last Updated Verified Penicillins Allergy Intermediate 12/08/16 Yes Sulfa (Sulfonamide Antibiotics) Allergy Intermediate 12/08/16 Yes aspirin Allergy Intermediate 12/08/16 Yes cephalexin Allergy Intermediate 04/19/15 Yes diazepam Allergy Intermediate 12/08/16 Yes diphenhydramine Allergy Intermediate 12/08/16 Yes erythromycin base Allergy Intermediate 12/08/16 Yes Physical Exam Physical Exam Constitutional: Well developed, well nourished, no acute distress, ill-appearing [] HENT: Normocephalic, atraumatic, bilateral external ears normal, oropharynx moist, no oral exudates, nose normal. [] Eyes: PERRLA, EOMI, conjunctiva normal, no discharge. [] Cardiovascular tachycardia Lungs & Thorax: decreased BS Abdomen: left lower quadrant with fistula present, stool coming from scar Skin: Warm, dry, no erythema, no rash. [] Extremities: No tenderness, no edema. [] Neurologic: Alert and oriented X 3, no focal deficits noted. [] Psychologic: Affect normal, judgement normal, mood normal. [] Current Patient Data Vital Signs Vital Signs Date Time Temp Pulse Resp B/P (MAP) Pulse Ox O2 Delivery O2 Flow Rate FiO2 10/12/19 20:48 98.3 113 15 156/65 (95) 99 Nasal Cannula 4.0 98.3 Lab Values Laboratory Tests Test 10/12/19 21:00 10/12/19 21:40 White Blood Count 19.4 x10^3/uL (4.0-11.0) H Red Blood Count 3.41 x10^6/uL (3.50-5.40) L Hemoglobin 9.5 g/dL (12.0-15.5) L Hematocrit 29.2 % (36.0-47.0) L Mean Corpuscular Volume 86 fL (79-100) Mean Corpuscular Hemoglobin 28 pg (25-35) Mean Corpuscular Hemoglobin Concent 33 g/dL (31-37) Red Cell Distribution Width 15.3 % (11.5-14.5) H Platelet Count 623 x10^3/uL (140-400) H Neutrophils (%) (Auto) 72 % (31-73) Lymphocytes (%) (Auto) 19 % (24-48) L Monocytes (%) (Auto) 7 % (0-9) Eosinophils (%) (Auto) 1 % (0-3) Basophils (%) (Auto) 2 % (0-3) Neutrophils # (Auto) 13.9 x10^3/uL (1.8-7.7) H Lymphocytes # (Auto) 3.7 x10^3/uL (1.0-4.8) Monocytes # (Auto) 1.4 x10^3/uL (0.0-1.1) H Eosinophils # (Auto) 0.1 x10^3/uL (0.0-0.7) Basophils # (Auto) 0.3 x10^3/uL (0.0-0.2) H Segmented Neutrophils % 62 % (35-66) Band Neutrophils % 10 % (0-9) H Lymphocytes % 22 % (24-48) L Monocytes % 6 % (0-10) Toxic Granulation Mod Platelet Estimate Increased (ADEQUATE) Lactic Acid Level 1.6 mmol/L (0.4-2.0) Sodium Level 138 mmol/L (136-145) Potassium Level 3.1 mmol/L (3.5-5.1) L Chloride Level 98 mmol/L (98-107) Carbon Dioxide Level 31 mmol/L (21-32) Anion Gap 9 (6-14) Blood Urea Nitrogen 49 mg/dL (7-20) H Creatinine 1.7 mg/dL (0.6-1.0) H Estimated GFR (Cockcroft-Gault) 29.3 BUN/Creatinine Ratio 29 (6-20) H Glucose Level 55 mg/dL (70-99) L Calcium Level 7.9 mg/dL (8.5-10.1) L Magnesium Level 1.9 mg/dL (1.8-2.4) Total Bilirubin 0.5 mg/dL (0.2-1.0) Aspartate Amino Transferase (AST) 18 U/L (15-37) Alanine Aminotransferase (ALT) 13 U/L (14-59) L Alkaline Phosphatase 149 U/L (46-116) H Total Protein 7.1 g/dL (6.4-8.2) Albumin 1.7 g/dL (3.4-5.0) L Albumin/Globulin Ratio 0.3 (1.0-1.7) L Laboratory Tests 10/12/19 21:00 Laboratory Tests 10/12/19 21:40 EKG EKG [] Radiology/Procedures Radiology/Procedures [][facility] [address] [place], [place] [id number] IMAGING REPORT Signed PATIENT: CASS HOOPER ACCOUNT: [id number] : 1945 LOCATION: [address] [place] [address] AGE: 74 SEX: F EXAM STATUS: ADM IN ORD. PHYSICIAN: MARCELO CRUZ MD REASON: left lower abd with fistula present, stool coming from incision site PROCEDURE: CT ABDOMEN PELVIS WO CONTRAST PQRS Compliance statement: One or more of the following individualized dose reduction techniques were utilized for this examination: 1. Automated exposure control. 2. Adjustment of the mA and/or kV according to patient size. 3. Use of iterative reconstruction technique. Indication: Left lower abdominal pain with fistula present. Stool coming out of incision site. TECHNIQUE: CT abdomen and pelvis without IV contrast with multiplanar reformats. COMPARISON: 12/12/2018 FINDINGS: Limited exam due to lack of IV contrast. Heart is normal in size. No pericardial or pleural effusion. Visualized lung bases are clear. Noncontrast appearance of the liver, spleen, gallbladder, adrenals within normal limits. No nephrolithiasis or hydronephrosis. No free pelvic fluid or ascites. Left lateral abdominal wall hernia is seen containing descending colon and small bowel with neck of the hernia approximately measuring 7.7 cm. Another left anterolateral abdominal wall hernia containing focal loop of descending colon with neck of the hernia measuring 4.2 cm. Anterior abdominal wall hernia is seen containing focal loop of small bowel with neck of the hernia approximately measuring 4 cm. No pneumoperitoneum. Mild inflammatory changes are seen in the lower anterior abdominal wall. Status post hysterectomy. No suspicious bony lesion. Note made of Brasher catheter decompressing the urinary bladder. No evidence of bowel obstruction. IMPRESSION: Limited evaluation of solid abdominal and pelvic organs due to lack of IV contrast. The evaluation of bilateral abdominal wall is limited as the [id number] is obscured due to patient's body habitus. 1. Multiple abdominal wall hernias as described above. No bowel obstruction. 2. Large amount of colonic stool burden, patient may be constipated. 3. Inflammatory changes in the anterior abdominal wall. Clinically correlate for signs of cellulitis. Electronically signed by: Mp Cordero DO (10/12/2019 11:47 PM) [facility] DICTATED and SIGNED BY: MP CORDERO DO DATE: 10/12/19 9997 Course & Med Decision Making Course & Med Decision Making Pertinent Labs and Imaging studies reviewed. (See chart for details) []74-year-old female underlying history of chronic respiratory failure, COPD, hypertension, morbidly obese presents to the emergency department with complaints of wound problem. Patient was seen at this facility and generally 2018 at that time had surgical procedure for abdominal abscess secondary to hernia with incarceration and perforated colon. She was admitted at that time with septic shock. He presents today with complaints of stool coming from her left lower quadrant or previous surgical procedure was completed. She denies any complaints of nausea, vomiting, abdominal pain, fever. Per the prison patient started having feces from the left lower quadrant today. Labs/Imaging reviewed Obvious fistula formation on physical exam however unable to quantify on CT given no contrast 2/2 renal function Lactic acid within normal limits Patient provided with IVF, Abx upon admit Cultures obtained Discussed physical exam with DR. GUALLPA - he will see patient in consultation Patient admitted to DR. CHERIE Dove Disclaimer Derrell Disclaimer This electronic medical record was generated, in whole or in part, using a voice recognition dictation system. Departure Departure Impression: Primary Impression: Colonic fistula Additional Impressions: Hypokalemia Chronic respiratory failure JACOB (acute kidney injury) Disposition: ADMITTED INPATIENT Admitting Physician: Madi. Tapia Condition: STABLE Referrals: KADE METCALF MD (PCP) Critical Care Time Critical care time was 40 minutes exclusive of procedures. Problem Qualifiers Additional Impressions: Chronic respiratory failure Respiratory failure complication: unspecified whether with hypoxia or hypercapnia Qualified Codes: J96.10 - Chronic respiratory failure, unspecified whether with hypoxia or hypercapnia MARCELO CRUZ MD Oct 12, 2019 21:11
[2019-10-12] MEDS ORDERED: MEROPENEM 1 GM in IV NORMAL SALINE 100ML 100 ML IV ONE (21:15)
[2019-10-12 21:20] LABS: BASO # 0.3 x10^3/uL (0.0-0.2); BASO % 2 % (0-3); EOS # 0.1 x10^3/uL (0.0-0.7); EOS % 1 % (0-3); HEMATOCRIT 29.2 % (36.0-47.0); HEMOGLOBIN 9.5 g/dL (12.0-15.5); LYMPH # 3.7 x10^3/uL (1.0-4.8); LYMPH % 19 % (24-48); MEAN CORPUSCULAR HEMOGLOBIN 28 pg (25-35); MEAN CORPUSCULAR HGB CONC 33 g/dL (31-37); MEAN CORPUSCULAR VOLUME 86 fL (79-100); MONO # 1.4 x10^3/uL (0.0-1.1); MONO % 7 % (0-9); NEUT # 13.9 x10^3/uL (1.8-7.7); NEUT % 72 % (31-73); PLATELET COUNT 623 x10^3/uL (140-400); RED BLOOD COUNT 3.41 x10^6/uL (3.50-5.40); RED CELL DISTRIBUTION WIDTH 15.3 % (11.5-14.5); WHITE BLOOD COUNT 19.4 x10^3/uL (4.0-11.0)
[2019-10-12] MEDS ORDERED: VANCOMYCIN 2 GM in IV NORMAL SALINE 500ML BAG 500 ML IV ONE (21:30)
[2019-10-12] MEDS ORDERED: PIPERACILLIN/TAZOBACTAM 4.5 GM in IV NORMAL SALINE 100ML 100 ML IV ONE (21:30)
[2019-10-12] MEDS ORDERED: IV NORMAL SALINE 1000ML BAG 1,000 ML IV ONE (21:30)
[2019-10-12] MEDS ORDERED: IOHEXOL 300 MG/ML 100ML VIAL. IV ONE (21:30)
[2019-10-12 21:39] LABS: % BANDS 10 % (0-9); % LYMPHS 22 % (24-48); % MONOS 6 % (0-10); % SEGS 62 % (35-66)
[2019-10-12 21:42] LABS: PLT ESTIMATE INCREASED (ADEQUATE); TOXIC GRANULATION MOD
[2019-10-12] MEDS ORDERED: CONTRAST GIVEN. MC PRN (21:45)
[2019-10-12 22:08] LABS: CALCIUM 7.9 mg/dL (8.5-10.1); CREATININE 1.7 mg/dL (0.6-1.0); GFR 29.3; POTASSIUM 3.1 mmol/L (3.5-5.1)
[2019-10-12 22:14] LABS: ALBUMIN 1.7 g/dL (3.4-5.0); ALBUMIN/GLOBULIN RATIO 0.3 (1.0-1.7); TOTAL BILIRUBIN 0.5 mg/dL (0.2-1.0); TOTAL PROTEIN 7.1 g/dL (6.4-8.2)
[2019-10-12] MEDS ORDERED: HALOPERIDOL LACTATE 5 MG/ML VIAL. IVP ONE (22:15)
[2019-10-12] MEDS ORDERED: ONDANSETRON PF 4 MG/2 ML VIAL. IV PRN (22:30)
[2019-10-12] MEDS ORDERED: IV DEXTROSE 5 %-0.45 % NACL 1,000 ML IV ONE (23:00)
[2019-10-12 23:45] VITALS: BP 158/70
--- NOTE | 2019-10-12 23:50 | RAD ---
PQRS Compliance statement: One or more of the following individualized dose reduction techniques were utilized for this examination: 1. Automated exposure control. 2. Adjustment of the mA and/or kV according to patient size. 3. Use of iterative reconstruction technique. Indication: Left lower abdominal pain with fistula present. Stool coming out of incision site. TECHNIQUE: CT abdomen and pelvis without IV contrast with multiplanar reformats. COMPARISON: 12/12/2018 FINDINGS: Limited exam due to lack of IV contrast. Heart is normal in size. No pericardial or pleural effusion. Visualized lung bases are clear. Noncontrast appearance of the liver, spleen, gallbladder, adrenals within normal limits. No nephrolithiasis or hydronephrosis. No free pelvic fluid or ascites. Left lateral abdominal wall hernia is seen containing descending colon and small bowel with neck of the hernia approximately measuring 7.7 cm. Another left anterolateral abdominal wall hernia containing focal loop of descending colon with neck of the hernia measuring 4.2 cm. Anterior abdominal wall hernia is seen containing focal loop of small bowel with neck of the hernia approximately measuring 4 cm. No pneumoperitoneum. Mild inflammatory changes are seen in the lower anterior abdominal wall. Status post hysterectomy. No suspicious bony lesion. Note made of Brasher catheter decompressing the urinary bladder. No evidence of bowel obstruction. IMPRESSION: Limited evaluation of solid abdominal and pelvic organs due to lack of IV contrast. The evaluation of bilateral abdominal wall is limited as the [id number] is obscured due to patient's body habitus. 1. Multiple abdominal wall hernias as described above. No bowel obstruction. 2. Large amount of colonic stool burden, patient may be constipated. 3. Inflammatory changes in the anterior abdominal wall. Clinically correlate for signs of cellulitis. Electronically signed by: Mp Cordero DO (10/12/2019 11:47 PM) [facility]
[2019-10-13] MEDS: POTASSIUM CHLORIDE 10MEQ 100 ML IV SCH ×4 (01:08→05:15)
[2019-10-13] MEDS ORDERED: ACET325T21 PO (02:33)
[2019-10-13] MEDS: VANCOMYCIN PER PHARMACY MC PRN ×2 (02:45→11:14)
--- NOTE | 2019-10-13 02:45 | NUR ---
Pharmacy Vancomycin Dosing Note S:Consulted to monitor and dose vancomycin started 10/12/19. O:CASS HOOPER is a 74 year old F with Cellulitis . Height: 5 feet, 4 inches Weight: 122.679824 kg [place] Body Weight: 54.70 Adjusted Body Weight: 81.62 Dosing Weight: Actual Other Antibiotics: ZOSYN X1 IN ER LABS: Last BUN: 49 Last Creatinine: 1.7 Creatinine Clearance: 37 mL/min Last WBC: 19.4 Last Procalcitonin: Tmax (past 24 hours): Microbiology: I/O: Drug Levels: Last level: on at Last dose given 10/12/19 at 2200 Vancomycin Dosing: Loading Dose: 2000 mg x1 Dosing Weight: Actual Target Trough: 10-20 A: Based on: WT AND CRCL P: 1. Begin Vancomycin 1000 mg IV q24h 2. Follow up Trough level on 10/14/19 at 2130 3. Pharmacy will continue to monitor, follow and adjust therapy as needed. ROBERT MOELLER RPH, 10/13/19 0246 Signed: 10/13/19 at 0246 by ROBERT MOELLER RPH PHA
[2019-10-13 03:00] VITALS: BP 136/62
[2019-10-13] MEDS ORDERED: HYPR15DR5 OP (03:41)
[2019-10-13] MEDS ORDERED: MIRT15TA3 PO (03:41)
[2019-10-13] MEDS ORDERED: LACT1CAP48 PO (03:41)
[2019-10-13] MEDS ORDERED: POLY15DR28 OP (03:41)
[2019-10-13] MEDS ORDERED: GUAI-66 PO (03:41)
[2019-10-13] MEDS ORDERED: MORP-16 PO (03:41)
[2019-10-13] MEDS ORDERED: FURO40TA4 PO (03:41)
[2019-10-13] MEDS ORDERED: MAGN400O7 PO (03:41)
[2019-10-13] MEDS ORDERED: MULT-245 PO (03:41)
[2019-10-13] MEDS ORDERED: MAG-111 PO (03:41)
[2019-10-13] MEDS ORDERED: ONDA4TAB12 PO (03:41)
[2019-10-13] MEDS ORDERED: BENZ1LOZ48 PO (03:41)
[2019-10-13] MEDS ORDERED: LORA10TA55 PO (03:41)
[2019-10-13] MEDS ORDERED: BUSP15TA PO (03:41)
[2019-10-13] MEDS ORDERED: MERO1VIA15 IV (03:41)
[2019-10-13] MEDS ORDERED: GLUC1KIT IM (03:41)
[2019-10-13] MEDS ORDERED: LOPE2TAB27 PO (03:41)
[2019-10-13] MEDS ORDERED: [UNRECOGNIZED DRUG - CODE] MM (03:41)
[2019-10-13] MEDS ORDERED: CALC500T31 PO (03:41)
[2019-10-13] MEDS ORDERED: INSU100I13 SQ ×2 (03:41)
[2019-10-13] MEDS ORDERED: DOCU100C28 PO (03:41)
[2019-10-13] MEDS ORDERED: INSU100V6 SQ (03:41)
[2019-10-13] MEDS ORDERED: FAMO20TA5 PO (03:41)
[2019-10-13] MEDS ORDERED: IPRA3AMP29 NEB (03:41)
[2019-10-13] MEDS ORDERED: C.DIFF MED SCREEN BY RX. MC ONE (04:45)
[2019-10-13 05:37] LABS: BASO % 0 % (0-3); EOS # 0.1 x10^3/uL (0.0-0.7); EOS % 1 % (0-3); HEMATOCRIT 24.2 % (36.0-47.0); HEMOGLOBIN 7.8 g/dL (12.0-15.5); LYMPH # 2.6 x10^3/uL (1.0-4.8); LYMPH % 19 % (24-48); MEAN CORPUSCULAR HEMOGLOBIN 28 pg (25-35); MEAN CORPUSCULAR HGB CONC 32 g/dL (31-37); MEAN CORPUSCULAR VOLUME 87 fL (79-100); MONO # 1.2 x10^3/uL (0.0-1.1); MONO % 8 % (0-9); NEUT # 9.9 x10^3/uL (1.8-7.7); NEUT % 72 % (31-73); PLATELET COUNT 481 x10^3/uL (140-400); RED BLOOD COUNT 2.79 x10^6/uL (3.50-5.40); RED CELL DISTRIBUTION WIDTH 15.2 % (11.5-14.5); WHITE BLOOD COUNT 13.8 x10^3/uL (4.0-11.0)
[2019-10-13 06:03] LABS: ALBUMIN 1.3 g/dL (3.4-5.0); ALBUMIN/GLOBULIN RATIO 0.3 (1.0-1.7); CALCIUM 7.6 mg/dL (8.5-10.1); CREATININE 1.7 mg/dL (0.6-1.0); GFR 29.3; POTASSIUM 3.4 mmol/L (3.5-5.1); TOTAL BILIRUBIN 0.4 mg/dL (0.2-1.0); TOTAL PROTEIN 5.9 g/dL (6.4-8.2)
[2019-10-13] MEDS ORDERED: MORPHINE SULFATE 4 MG/ML VIAL. IV PRN (06:30)
[2019-10-13 07:17] VITALS: BP 143/69
[2019-10-13] MEDS ORDERED: DEXTROSE 50% 25 GM / 50ML DISP.SYRIN. IV PRN (09:00)
[2019-10-13] MEDS: INSULIN LISPRO 300 UNITS/3 ML VIAL. SQ SCH ×3 (09:00→21:00)
--- NOTE | 2019-10-13 09:35 | HP ---
ADMIT DATE: 10/12/2019 HISTORY OF PRESENT ILLNESS: The patient is a 74-year-old female patient, a resident at [facility] in [place], who was noted to have feces coming out from the left lower quadrant abdominal wound from a previous surgical procedure for incarcerated hernia. Apparently, she was admitted on 12/12/2018 with septic shock and left sided abdominal wound draining foul smelling stool. At that time, she was diagnosed with left lower quadrant abdominal wall abscess secondary to abdominal wall hernia with incarceration and perforated colon. At that time, she underwent excisional debridement of skin and subcutaneous fat biopsy of a colon mass, closure of colostomy and wide drainage of abdominal wall. 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 She continued on TPN even at [facility] and eventually the fistula has closed and TPN was discontinued. She was actually taken off hospice and has done very well for a while and yesterday the nurse noted that stool coming out from that wound and was brought to the Emergency Room where she was evaluated. Her lab work showed she has leukocytosis with a white cell count 19,400. Her kidney function is stable with chronic kidney disease with a baseline creatinine about 1.7, was admitted, kept n.p.o. We did consult the surgical team for evaluation and treatment. She did have a CT scan of the abdomen and pelvis, which basically showed that she has multiple abdominal wall hernias. She has left lateral abdominal wall hernia seen containing descending colon and small bowel with neck of the hernia approximately measuring 7.7 cm, another left anterolateral abdominal wall hernia containing focal loop of descending colon in the neck of the hernia measures about 4.2 cm. Anterior abdominal wall hernia is seen containing focal loop of small bowel. The neck of the hernia is approximately measuring 4 cm. No pneumoperitoneum. Mild inflammatory changes are seen in the lower anterior abdominal wall, status post hysterectomy. No suspicious bony lesion. She has also an indwelling Brasher catheter compressive urinary bladder, no evidence of bowel obstruction. She was started on IV vancomycin as well as continued on her IV meropenem as she has grown multiple organisms in the urine culture and sensitivity including Pseudomonas, Proteus, and Enterococcus faecalis. PAST MEDICAL HISTORY: Significant for hypertension, hyperlipidemia, morbid obesity, obstructive sleep apnea, anxiety, depression, type 2 diabetes. She did have also left humerus fracture and she underwent left lower quadrant abdominal wall abscess secondary to abdominal hernia with incarcerated and perforated colon. At that time, she underwent excisional debridement of skin and subcutaneous fat biopsy of colon mass and closure colotomy and wide drainage of the abdominal wall. ALLERGIES: SHE IS ALLERGIC TO PENICILLIN, SULFA DRUGS, ASPIRIN, CEPHALEXIN, DIAZEPAM, DIPHENHYDRAMINE, AND ERYTHROMYCIN BASE. MEDICATIONS: She is currently on following medications: Loratadine 10 mg once a day, meropenem 1 g IV q.8 hourly, ipratropium bromide, albuterol sulfate in 3 mL by nebulizer 4 times a day, morphine sulfate 30 mg extended release twice a day, acetaminophen 650 mg every 6 hours, mirtazapine 15 mg at bedtime, buspirone 0.5 mg twice a day, calcium carbonate 500 mg every 3 hours, furosemide 40 mg twice a day, guaifenesin for Delores-Tussin 10 mL every 6 hours, benzocaine/menthol for Cepacol sore throat lozenges 2 tablets every 2 hours, Isopto Tears 1 drop to both eyes every hour as needed, liquid tears 1 drop twice a day, Delores-Lanta liquid 30 mL every 6 hours as needed, lactobacillus acidophilus 2 capsules daily, loperamide 2 mg every 4-6 hours, bisacodyl 10 mg suppository daily p.r.n. for constipation, Colace 200 mg once a day, milk of magnesia 30 mL p.o. daily p.r.n. for constipation, ondansetron 4 mg IV every 4 hours, famotidine 20 mg at bedtime. She is on Lantus insulin 40 units at bedtime and Lantus 50 units with breakfast. She is on lispro, Humalog insulin 20 units 3 times a day before meals. She is on glucagon 1 mg intramuscular as needed for hypoglycemia, nystatin powder apply topically twice a day, saliva substitute as needed every hour, multivitamin 1 tablet once a day. FAMILY HISTORY: Noncontributory. SOCIAL HISTORY: She lives at home with her before. She now has been a resident at [facility] in [place] for almost a year. She never smoked. 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 She does not get around very well. She is mostly bed bound, wheelchair bound. REVIEW OF SYSTEMS: As per history of present illness. PHYSICAL EXAMINATION: GENERAL: On arrival to the Emergency Room, the patient was resting slightly propped up in bed, in no apparent respiratory distress, pale, but no jaundice, cyanosis or thyromegaly. No jugular venous distention. No limb edema. VITAL SIGNS: Her heart rate was 113, blood pressure 156/65, temperature was 98.3, respiratory rate was 15 and her oxygen saturation was 99% on 4 liters of oxygen. HEAD, EYES, EARS, NOSE AND THROAT: Showed normocephalic, atraumatic. NECK: Supple. HEART: Showed normal first and second heart sounds. No gallop or murmur. CHEST: Clear to auscultation. No crepitation or rhonchi. ABDOMEN: Distended, soft. She has wound in the left lower quadrant with formed stool coming out of it. There is no guarding or rigidity. No organomegaly. All hernial orifice intact. Bowel sounds normal. NEUROLOGIC: She was sleepy, but arousable. All cranial nerves intact. EXTREMITIES: She moves extremities without difficulty, although she is mostly bedbound, chair bound. LABORATORY DATA: On admission showed a white cell count of 19,400, hemoglobin 9.5, hematocrit 29, MCV 86 and platelet count of 623,000. Her chemistry showed a serum sodium 138, potassium 3.1, chloride 98, bicarbonate 31, anion gap of 9, BUN 49, creatinine was 1.7, estimated GFR was 29 mL per minute. Her glucose was 55, calcium was 7.9, magnesium was 1.9. Total bilirubin, AST, ALT, alkaline phosphatase were slightly elevated. Total protein 7.1, albumin is 1.7. The CT scan of the abdomen and pelvis showed that the patient has multiple abdominal wall hernias. No bowel obstruction. She has large amount of colonic stool burden. The patient may be constipated. She has also inflammatory changes in the anterior abdominal wall, clinically correlate with signs of cellulitis. ASSESSMENT AND PLAN: The patient was admitted basically with colocutaneous fistula. We will keep her n.p.o., continued IV fluid in the form of D5 half normal. Continue with IV antibiotic as recommended by the pharmacy and continue with IV morphine and Ativan. Await evaluation by the surgical team. MICHELLE CRESPO MD DR: JARON/binta JOB#: [id number] / [id number]
[2019-10-13] MEDS: MEROPENEM 1 GM in IV NORMAL SALINE 100ML 100 ML IV SCH ×2 (09:39→21:29)
[2019-10-13] MEDS: fentaNYL PF VIAL 100 MCG/2 ML VIAL IVP PRN ×4 (09:45→23:11)
[2019-10-13 10:39] VITALS: BP 163/70
--- NOTE | 2019-10-13 11:41 | PDOC2 ---
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 This was treated with local wound care and she eventually went to [facility] in [place]. Per the patient and her for wound closed a few weeks ago. Yesterday she began having feculent drainage from the left lower quadrant and was brought back to the hospital. She had been in hosp[facility] care at the [facility] for a time, however, recently that was stopped Past Medical History Cardiovascular: HTN, Hyperlipidemia Pulmonary: COPD, Other GI: Other Psych: Anxiety, Depression Musculoskeletal: Other Rheumatologic: No pertinent hx Infectious disease: No pertinent hx Renal/: No pertinent hx Endocrine: Diabetes Past Surgical History Past Surgical History: Hernia Repair, Tonsillectomy, Hysterectomy, Other Family History Family History: No Significant, Family History Unknown Social History ALCOHOL: none Drugs: None Lives: [facility] Current Medications Current Medications Current Medications Vancomycin HCl (Vanco Per Pharmacy) 1 each PRN DAILY PRN MC SEE COMMENTS Last administered on 10/13/19at 11:14; Start 10/12/19 at 21:15 Sodium Chloride 1,000 ml @ 1,000 mls/hr 1X ONCE IV Last administered on 10/12/19at 22:02; Start 10/12/19 at 21:30; Stop 10/12/19 at 22:29; Status DC Meropenem 1 gm/ Sodium Chloride 100 ml @ 200 mls/hr 1X ONCE IV ; Start 10/12/19 at 21:15; Stop 10/12/19 at 21:31; Status DC Vancomycin HCl 2 gm/Sodium Chloride 500 ml @ 250 mls/hr 1X ONCE IV Last administered on 10/12/19at 21:59; Start 10/12/19 at 21:30; Stop 10/12/19 at 23:29; Status DC Iohexol (Omnipaque 300 Mg/ml) 75 ml 1X ONCE IV ; Start 10/12/19 at 21:30; Stop 10/12/19 at 21:31; Status DC Piperacillin Sod/ Tazobactam Sod 4.5 gm/Sodium Chloride 100 ml @ 200 mls/hr 1X ONCE IV Last administered on 10/12/19at 22:10; Start 10/12/19 at 21:30; Stop 10/12/19 at 21:59; Status DC Info (CONTRAST GIVEN -- Rx MONITORING) 1 each PRN DAILY PRN MC SEE COMMENTS; Start 10/12/19 at 21:45; Stop 10/14/19 at 21:44 Haloperidol Lactate (Haldol Inj) 1 mg 1X ONCE IVP Last administered on 10/12/19at 22:11; Start 10/12/19 at 22:15; Stop 10/12/19 at 22:16; Status DC Potassium Chloride/Water 100 ml @ 100 mls/hr Q1H IV Last administered on 10/13/19at 05:15; Start 10/12/19 at 23:00; Stop 10/13/19 at 02:59; Status DC Ondansetron HCl (Zofran) 4 mg PRN Q8HRS PRN IV NAUSEA/VOMITING 1ST CHOICE; Start 10/12/19 at 22:30; Stop 10/13/19 at 22:29 Dextrose/Sodium Chloride 1,000 ml @ 100 mls/hr 1X ONCE IV Last administered on 10/13/19at 00:58; Start 10/12/19 at 23:00; Stop 10/13/19 at 08:59; Status DC Vancomycin HCl 1.75 gm/Sodium Chloride 500 ml @ 250 mls/hr Q24H IV ; Start 10/13/19 at 22:00 Vancomycin HCl (Vancomycin Trough Level) 1 each 1X ONCE MC ; Start 10/14/19 at 21:30; Stop 10/14/19 at 21:31 Pharmacy Consult (C.diff Med Screen By Rx) 1 each 1X ONCE MC ; Start 10/13/19 at 04:45; Stop 10/13/19 at 04:46; Status DC Meropenem (Merrem) 1 gm Q8HRS IV ; Start 10/13/19 at 14:00; Status UNV Morphine Sulfate (Morphine Sulfate) 4 mg PRN Q4HRS PRN IV SEVERE PAIN 7-10; Start 10/13/19 at 06:30 Meropenem 1 gm/ Sodium Chloride 100 ml @ 200 mls/hr Q12H IV Last administered on 10/13/19at 09:39; Start 10/13/19 at 09:00 Insulin Human Lispro (HumaLOG) 0-5 UNITS Q6H SQ ; Start 10/13/19 at 09:00 Dextrose (Dextrose 50%-Water Syringe) 12.5 gm PRN Q15MIN PRN IV SEE COMMENTS; Start 10/13/19 at 09:00 Fentanyl Citrate (Fentanyl 2ml Vial) 50 mcg PRN Q3HRS PRN IVP MODERATE PAIN; Start 10/13/19 at 09:15 Lorazepam (Ativan Inj) 0.5 mg PRN Q4HRS PRN IVP ANXIETY / AGITATION; Start 10/13/19 at 09:30 Active Scripts Active Reported Oral Relief Dry Mouth (Saliva Substitute Comb. No.12) 30 Ml [place].pump 30 Ml MM PRN Q4HRS PRN Ondansetron Odt (Ondansetron) 4 Mg Tab.rapdis 1 Tab PO PRN Q6-8HRS Multi Vitamin Daily (Multivitamin) 1 Each Tablet 1 Tab PO DAILY 30 Days Morphine Sulfate Er (Morphine Sulfate) 30 Mg Tablet.er 1 Tab PO BID Mirtazapine 15 Mg Tablet 1 Tab PO QHS Milk Of Magnesia (Magnesium Hydroxide) 400 Mg/5 Ml Oral.susp 10 Ml PO PRN BID PRN Meropenem 1 Gm Vial 1 Gm IV Q8HRS 10 Days Loratadine 10 Mg Tab.rapdis 1 Tab PO DAILY 30 Days Loperamide (Loperamide Hcl) 2 Mg Tablet 2 Mg PO PRN Q4-6HRS PRN Liquitears (Polyvinyl Alcohol) 15 Ml Drops 15 Ml OP BID PRN Lantus Solostar (Insulin Glargine,Hum.rec.anlog) 100 Unit/1 Ml Insuln.pen 50 Unit SQ DAILYWBKFT Lantus Solostar (Insulin Glargine,Hum.rec.anlog) 100 Unit/1 Ml Insuln.pen 40 Unit SQ QHS Isopto Tears (Hypromellose) 15 Ml Drops 15 Ml OP PRN Q1HR PRN Duoneb 0.5-3(2.5) Mg/3 Ml (Albuterol/Ipratropium) 3 Ml Ampul.neb 3 Ml NEB QID Humalog (Insulin Lispro) 100 Unit/1 Ml Vial 20 Unit SQ TID Glucagon Emergency Kit (Glucagon,Human Recombinant) 1 Mg Kit 1 Mg IM PRN Delores-Tussin (Guaifenesin) 100 Mg/5 Ml Liquid 10 Mg PO PRN Q6HRS PRN Delores-Lanta Liquid (Mag Hydrox/Aluminum Hyd/Simeth) 355 Ml Oral.susp 30 Ml PO PRN Q6HRS PRN Furosemide 40 Mg Tablet 40 Mg PO BID Famotidine 20 Mg Tablet 20 Mg PO HS Docusate Sodium 100 Mg Capsule 2 Cap PO HS 7 Days Cepacol Sore Throat Lozenge (Benzocaine/Menthol) 1 Each Lozenge 2 Tab PO PRN Q2HR PRN 3 Days Buspirone Hcl 15 Mg Tablet 0.5 Tab PO BID Calcium Carbonate 500 Mg Tablet 500 Mg PO PRN Q3HRS PRN Acidophilus Lactobacilli (Lactobacillus Acidophilus) 1 Each Capsule 2 Cap PO DAILY 30 Days Acetaminophen 325 Mg Tablet 1 Tab PO PRN Q6HRS PRN 24 Days Nystatin 1 Each Powder.ea. 1 Each MC BID Bisacodyl 10 Mg Supp.rect 10 Mg RC PRN DAILY PRN Acetaminophen Supp (Acetaminophen) 650 Mg Supp.rect 650 Mg RC PRN Q6HRS PRN Allergies Allergies: Coded Allergies: Penicillins (Verified Allergy, Intermediate, 12/08/16) Sulfa (Sulfonamide Antibiotics) (Verified Allergy, Intermediate, 12/08/16) aspirin (Verified Allergy, Intermediate, 12/08/16) cephalexin (Verified Allergy, Intermediate, 04/19/15) diazepam (Verified Allergy, Intermediate, 12/08/16) diphenhydramine (Verified Allergy, Intermediate, 12/08/16) erythromycin base (Verified Allergy, Intermediate, 12/08/16) ROS General: YES: Fatigue PSYCHOLOGICAL ROS: YES: Anxiety Gastrointestinal: Yes Abdominal Pain Physical Exam General: Alert, Oriented X3, No acute distress HEENT: Atraumatic Lungs: Normal air movement Heart: Regular rate Abdomen: Other (obese, soft, palpable incarcerated hernias, ostomy bag over the left lower quadrant cutaneous fistula site collecting soft brown stool) Neuro: Normal speech Vitals VITALS Vital Signs Date Time Temp Pulse Resp B/P (MAP) Pulse Ox O2 Delivery O2 Flow Rate FiO2 10/13/19 10:39 98.4 102 18 163/70 (101) 96 Nasal Cannula 3.0 98.4 Labs Labs Laboratory Tests Test 10/12/19 21:00 10/12/19 21:40 10/13/19 01:22 10/13/19 04:53 White Blood Count 19.4 x10^3/uL (4.0-11.0) 13.8 x10^3/uL (4.0-11.0) Red Blood Count 3.41 x10^6/uL (3.50-5.40) 2.79 x10^6/uL (3.50-5.40) Hemoglobin 9.5 g/dL (12.0-15.5) 7.8 g/dL (12.0-15.5) Hematocrit 29.2 % (36.0-47.0) 24.2 % (36.0-47.0) Mean Corpuscular Volume 86 fL (79-100) 87 fL (79-100) Mean Corpuscular Hemoglobin 28 pg (25-35) 28 pg (25-35) Mean Corpuscular Hemoglobin Concent 33 g/dL (31-37) 32 g/dL (31-37) Red Cell Distribution Width 15.3 % (11.5-14.5) 15.2 % (11.5-14.5) Platelet Count 623 x10^3/uL (140-400) 481 x10^3/uL (140-400) Neutrophils (%) (Auto) 72 % (31-73) 72 % (31-73) Lymphocytes (%) (Auto) 19 % (24-48) 19 % (24-48) Monocytes (%) (Auto) 7 % (0-9) 8 % (0-9) Eosinophils (%) (Auto) 1 % (0-3) 1 % (0-3) Basophils (%) (Auto) 2 % (0-3) 0 % (0-3) Neutrophils # (Auto) 13.9 x10^3/uL (1.8-7.7) 9.9 x10^3/uL (1.8-7.7) Lymphocytes # (Auto) 3.7 x10^3/uL (1.0-4.8) 2.6 x10^3/uL (1.0-4.8) Monocytes # (Auto) 1.4 x10^3/uL (0.0-1.1) 1.2 x10^3/uL (0.0-1.1) Eosinophils # (Auto) 0.1 x10^3/uL (0.0-0.7) 0.1 x10^3/uL (0.0-0.7) Basophils # (Auto) 0.3 x10^3/uL (0.0-0.2) 0.0 x10^3/uL (0.0-0.2) Segmented Neutrophils % 62 % (35-66) Band Neutrophils % 10 % (0-9) Lymphocytes % 22 % (24-48) Monocytes % 6 % (0-10) Toxic Granulation Mod Platelet Estimate Increased (ADEQUATE) Lactic Acid Level 1.6 mmol/L (0.4-2.0) Sodium Level 138 mmol/L (136-145) Potassium Level 3.1 mmol/L (3.5-5.1) Chloride Level 98 mmol/L (98-107) Carbon Dioxide Level 31 mmol/L (21-32) Anion Gap 9 (6-14) Blood Urea Nitrogen 49 mg/dL (7-20) Creatinine 1.7 mg/dL (0.6-1.0) Estimated GFR (Cockcroft-Gault) 29.3 BUN/Creatinine Ratio 29 (6-20) Glucose Level 55 mg/dL (70-99) Calcium Level 7.9 mg/dL (8.5-10.1) Magnesium Level 1.9 mg/dL (1.8-2.4) Total Bilirubin 0.5 mg/dL (0.2-1.0) Aspartate Amino Transf (AST/SGOT) 18 U/L (15-37) Alanine Aminotransferase (ALT/SGPT) 13 U/L (14-59) Alkaline Phosphatase 149 U/L (46-116) Total Protein 7.1 g/dL (6.4-8.2) Albumin 1.7 g/dL (3.4-5.0) Albumin/Globulin Ratio 0.3 (1.0-1.7) Glucose (Fingerstick) 118 mg/dL (70-99) Test 10/13/19 04:55 10/13/19 07:20 10/13/19 09:05 10/13/19 11:30 Sodium Level 140 mmol/L (136-145) Potassium Level 3.4 mmol/L (3.5-5.1) Chloride Level 102 mmol/L (98-107) Carbon Dioxide Level 30 mmol/L (21-32) Anion Gap 8 (6-14) Blood Urea Nitrogen 44 mg/dL (7-20) Creatinine 1.7 mg/dL (0.6-1.0) Estimated GFR (Cockcroft-Gault) 29.3 BUN/Creatinine Ratio 26 (6-20) Glucose Level 108 mg/dL (70-99) Calcium Level 7.6 mg/dL (8.5-10.1) Total Bilirubin 0.4 mg/dL (0.2-1.0) Aspartate Amino Transf (AST/SGOT) 16 U/L (15-37) Alanine Aminotransferase (ALT/SGPT) 7 U/L (14-59) Alkaline Phosphatase 126 U/L (46-116) Total Protein 5.9 g/dL (6.4-8.2) Albumin 1.3 g/dL (3.4-5.0) Albumin/Globulin Ratio 0.3 (1.0-1.7) Glucose (Fingerstick) 101 mg/dL (70-99) 113 mg/dL (70-99) 165 mg/dL (70-99) Laboratory Tests Test 10/12/19 21:00 10/12/19 21:40 10/13/19 01:22 10/13/19 04:53 White Blood Count 19.4 x10^3/uL (4.0-11.0) 13.8 x10^3/uL (4.0-11.0) Red Blood Count 3.41 x10^6/uL (3.50-5.40) 2.79 x10^6/uL (3.50-5.40) Hemoglobin 9.5 g/dL (12.0-15.5) 7.8 g/dL (12.0-15.5) Hematocrit 29.2 % (36.0-47.0) 24.2 % (36.0-47.0) Mean Corpuscular Volume 86 fL (79-100) 87 fL (79-100) Mean Corpuscular Hemoglobin 28 pg (25-35) 28 pg (25-35) Mean Corpuscular Hemoglobin Concent 33 g/dL (31-37) 32 g/dL (31-37) Red Cell Distribution Width 15.3 % (11.5-14.5) 15.2 % (11.5-14.5) Platelet Count 623 x10^3/uL (140-400) 481 x10^3/uL (140-400) Neutrophils (%) (Auto) 72 % (31-73) 72 % (31-73) Lymphocytes (%) (Auto) 19 % (24-48) 19 % (24-48) Monocytes (%) (Auto) 7 % (0-9) 8 % (0-9) Eosinophils (%) (Auto) 1 % (0-3) 1 % (0-3) Basophils (%) (Auto) 2 % (0-3) 0 % (0-3) Neutrophils # (Auto) 13.9 x10^3/uL (1.8-7.7) 9.9 x10^3/uL (1.8-7.7) Lymphocytes # (Auto) 3.7 x10^3/uL (1.0-4.8) 2.6 x10^3/uL (1.0-4.8) Monocytes # (Auto) 1.4 x10^3/uL (0.0-1.1) 1.2 x10^3/uL (0.0-1.1) Eosinophils # (Auto) 0.1 x10^3/uL (0.0-0.7) 0.1 x10^3/uL (0.0-0.7) Basophils # (Auto) 0.3 x10^3/uL (0.0-0.2) 0.0 x10^3/uL (0.0-0.2) Segmented Neutrophils % 62 % (35-66) Band Neutrophils % 10 % (0-9) Lymphocytes % 22 % (24-48) Monocytes % 6 % (0-10) Toxic Granulation Mod Platelet Estimate Increased (ADEQUATE) Lactic Acid Level 1.6 mmol/L (0.4-2.0) Sodium Level 138 mmol/L (136-145) Potassium Level 3.1 mmol/L (3.5-5.1) Chloride Level 98 mmol/L (98-107) Carbon Dioxide Level 31 mmol/L (21-32) Anion Gap 9 (6-14) Blood Urea Nitrogen 49 mg/dL (7-20) Creatinine 1.7 mg/dL (0.6-1.0) Estimated GFR (Cockcroft-Gault) 29.3 BUN/Creatinine Ratio 29 (6-20) Glucose Level 55 mg/dL (70-99) Calcium Level 7.9 mg/dL (8.5-10.1) Magnesium Level 1.9 mg/dL (1.8-2.4) Total Bilirubin 0.5 mg/dL (0.2-1.0) Aspartate Amino Transf (AST/SGOT) 18 U/L (15-37) Alanine Aminotransferase (ALT/SGPT) 13 U/L (14-59) Alkaline Phosphatase 149 U/L (46-116) Total Protein 7.1 g/dL (6.4-8.2) Albumin 1.7 g/dL (3.4-5.0) Albumin/Globulin Ratio 0.3 (1.0-1.7) Glucose (Fingerstick) 118 mg/dL (70-99) Test 10/13/19 04:55 10/13/19 07:20 10/13/19 09:05 10/13/19 11:30 Sodium Level 140 mmol/L (136-145) Potassium Level 3.4 mmol/L (3.5-5.1) Chloride Level 102 mmol/L (98-107) Carbon Dioxide Level 30 mmol/L (21-32) Anion Gap 8 (6-14) Blood Urea Nitrogen 44 mg/dL (7-20) Creatinine 1.7 mg/dL (0.6-1.0) Estimated GFR (Cockcroft-Gault) 29.3 BUN/Creatinine Ratio 26 (6-20) Glucose Level 108 mg/dL (70-99) Calcium Level 7.6 mg/dL (8.5-10.1) Total Bilirubin 0.4 mg/dL (0.2-1.0) Aspartate Amino Transf (AST/SGOT) 16 U/L (15-37) Alanine Aminotransferase (ALT/SGPT) 7 U/L (14-59) Alkaline Phosphatase 126 U/L (46-116) Total Protein 5.9 g/dL (6.4-8.2) Albumin 1.3 g/dL (3.4-5.0) Albumin/Globulin Ratio 0.3 (1.0-1.7) Glucose (Fingerstick) 101 mg/dL (70-99) 113 mg/dL (70-99) 165 mg/dL (70-99) Images Images CT scan done last night on presentation is reviewed Assessment/Plan Assessment/Plan Morbidly obese female with multiple ventral hernias, one of which appears to be the source of her enterocutaneous fistula. We will manage with gut rest, IV fluids, antibiotics, and expectant treatment inasmuch as she would present a formidable surgical risk for trying to repair her recurrent hernias and resect her enterocutaneous fistula We'll follow with you Thanks for consult RIGO GUALLPA MD Oct 13, 2019 11:41
--- NOTE | 2019-10-13 13:17 | NUR ---
fentanyl did not scan this morning verified with usecond nurse on shift that it was given and wasted partial dose.
[2019-10-13] MEDS ORDERED: MEROPENEM 1 GM VIAL IV SCH (14:00)
[2019-10-13 14:20] VITALS: BP 156/67
[2019-10-13] MEDS ORDERED: guaiFENesin ORAL 200 MG/10 ML LIQUID. PO PRN (19:30)
[2019-10-13] MEDS ORDERED: BISACODYL 10 MG SUPP.RECT. RC PRN (19:30)
[2019-10-13] MEDS ORDERED: POLYVINYL ALCOHOL 1.4% OPHTH SOLUTION 15ML BOTTLE. OU PRN (19:30)
[2019-10-13] MEDS ORDERED: MAG HYDROX/ALUMINUM HYD/SIMETH 30 ML ORAL.SUSP PO PRN (19:30)
[2019-10-13] MEDS ORDERED: CALCIUM CARBONATE 500 MG TABLET PO PRN (19:30)
[2019-10-13] MEDS ORDERED: HYPROMELLOSE OP PRN (19:30)
[2019-10-13] MEDS ORDERED: MAGNESIUM HYDROXIDE 2,400 MG/30 ML ORAL.SUSP. PO PRN (19:30)
[2019-10-13] MEDS ORDERED: BENZOCAINE/MENTHOL LOZENGE. PO PRN (19:30)
[2019-10-13] MEDS ORDERED: ONDANSETRON ODT 4 MG TAB.RAPDIS. PO PRN (19:30)
[2019-10-13 19:33] VITALS: BP 142/67
[2019-10-13] MEDS: IPRATRPIUM/ALBUTEROL 0.5/2.5MG 3 ML NEBU. NEB SCH (20:00)
[2019-10-13] MEDS ORDERED: LOPERAMIDE 2 MG CAPSULE PO PRN (20:00)
[2019-10-13] MEDS ORDERED: SALIVA STIMULANT AGENT 44ML SPRAY BOTTLE. PO PRN (20:00)
[2019-10-13] MEDS: DOCUSATE SODIUM 100 MG CAPSULE. PO SCH (21:00)
[2019-10-13] MEDS ORDERED: INSULIN GLARGINE SYRINGE. SQ SCH (21:00)
[2019-10-13] MEDS ORDERED: FUROSEMIDE 40 MG TABLET. PO SCH (21:00)
[2019-10-13] MEDS ORDERED: MORPHINE ER 15 MG TABLET.ER PO SCH (21:00)
[2019-10-13] MEDS: NYSTATIN TOPICAL POWDER 15GM BOTTLE. TP SCH (21:29)
[2019-10-13] MEDS: LACTOBACILLUS RHAMNOSUS GG 1 CAPSULE. PO SCH (21:30)
[2019-10-13] MEDS: ACETAMINOPHEN 325 MG TABLET. PO PRN (21:30)
[2019-10-13] MEDS: busPIRone 5 MG TABLET. PO SCH (21:30)
[2019-10-13] MEDS: FAMOTIDINE 20 MG TABLET. PO SCH (21:31)
[2019-10-13] MEDS: MIRTAZAPINE 15 MG TABLET PO SCH (21:32)
[2019-10-13] MEDS ORDERED: VANCOMYCIN 1.75 GM in IV NORMAL SALINE 500ML BAG 500 ML IV SCH (22:00)
[2019-10-13 23:48] VITALS: BP 116/55
[2019-10-14] MEDS ORDERED: IPRATRPIUM/ALBUTEROL 0.5/2.5MG 3 ML NEBU. NEB ONE (01:00)
[2019-10-14] MEDS: INSULIN LISPRO 300 UNITS/3 ML VIAL. SQ SCH ×4 (03:00→20:38)
[2019-10-14 03:45] VITALS: BP 157/60
[2019-10-14] MEDS: fentaNYL PF VIAL 100 MCG/2 ML VIAL IVP PRN ×3 (04:51→19:24)
[2019-10-14 05:43] LABS: ALBUMIN 1.3 g/dL (3.4-5.0); ALBUMIN/GLOBULIN RATIO 0.3 (1.0-1.7); CALCIUM 7.5 mg/dL (8.5-10.1); CREATININE 1.5 mg/dL (0.6-1.0); GFR 33.9; TOTAL BILIRUBIN 0.3 mg/dL (0.2-1.0)
[2019-10-14 06:37] LABS: HEMATOCRIT 38.4 % (36.0-47.0); HEMOGLOBIN 12.3 g/dL (12.0-15.5); RED BLOOD COUNT 4.44 x10^6/uL (3.50-5.40); RED CELL DISTRIBUTION WIDTH 15.4 % (11.5-14.5); WHITE BLOOD COUNT 6.9 x10^3/uL (4.0-11.0)
[2019-10-14 07:18] VITALS: BP 140/65
[2019-10-14] MEDS: IPRATRPIUM/ALBUTEROL 0.5/2.5MG 3 ML NEBU. NEB SCH ×4 (08:49→19:46)
[2019-10-14] MEDS ORDERED: LACTOBACILLUS ACIDOPHILUS PO SCH (09:00)
[2019-10-14 09:01] LABS: BASE EXCESS ABG 2 mmol/L (-3-3); HCO3 ABG 27 mmol/L (21-28); PCO2 ABG 44 mmHg (35-46); PO2 ABG 96 mmHg (65-108); SAT O2 ABG 97 % (92-99)
[2019-10-14] MEDS: MULTIVITAMIN with MINERAL TABLET. PO SCH (09:06)
[2019-10-14] MEDS: busPIRone 5 MG TABLET. PO SCH ×2 (09:06→20:37)
[2019-10-14] MEDS: CETIRIZINE HCL 10 MG TABLET. PO SCH (09:06)
[2019-10-14] MEDS: MEROPENEM 1 GM in IV NORMAL SALINE 100ML 100 ML IV SCH ×2 (09:06→20:36)
[2019-10-14] MEDS: LACTOBACILLUS RHAMNOSUS GG 1 CAPSULE. PO SCH ×2 (09:06→20:37)
[2019-10-14] MEDS: NYSTATIN TOPICAL POWDER 15GM BOTTLE. TP SCH ×2 (09:07→20:35)
[2019-10-14] MEDS: ACETAMINOPHEN 325 MG TABLET. PO PRN (09:20)
--- NOTE | 2019-10-14 09:25 | NUR ---
RN NOTE patient refused pictures of wounds, education provided regarding policy and patient stated they have taken enough pictures of me already. will continue to monitor family at bedside call light within reach
--- NOTE | 2019-10-14 09:25 | PN ---
DATE: 10/14/2019 SUBJECTIVE: The patient is resting, slightly propped up in bed, very lethargic. Her blood sugar was low at 48 and apparently her morphine as well as insulin was continued last night; and therefore, I recommended to check her blood sugar and also blood gases. PHYSICAL EXAMINATION: GENERAL: When I examined her, she was pale. No jaundice, cyanosis, or thyromegaly. No jugular venous distention. No lower limb edema. VITAL SIGNS: Her heart rate was 89, blood pressure was 140/65, temperature was 97.5, respiratory rate was 18, and oxygen saturation was 96% on 2 liters of oxygen. HEAD, EYES, EARS, NOSE, THROAT: Normocephalic, atraumatic. NECK: Supple. HEART: Showed normal first and second heart sounds. No gallop, rub, or murmur. CHEST: Clear to auscultation. No crepitation or rhonchi. ABDOMEN: Markedly distended, soft with no tenderness. She has colocutaneous fistula covered with a colostomy bag. There is no tenderness. No guarding or rigidity. No organomegaly. All hernial orifices intact. Bowel sounds normal. NEUROLOGIC: She is very lethargic, but arousable. All cranial nerves intact. She moves upper extremities to much good extent than lower extremities. She is mostly bedbound and chair-bound. Her intake over the last 24 hours was 800, output was 800. As of this morning, her serum sodium was 145, potassium 3, chloride 108, bicarbonate 8, BUN 36, creatinine 1.5, estimated GFR was 53 mL per minute, her glucose was 48, calcium 7.5. Total bilirubin, AST, ALT, alkaline phosphatase were normal. Total protein was 6, albumin was 1.3. Her white cell count is down to 6900, hemoglobin 12, hematocrit 38, MCV 87, and platelet count 358,000. Her nasal screen for MRSA by PCR was positive. ASSESSMENT: 1. Altered mental status, likely due to hypoglycemia versus acute hypoxic-hypercapnic respiratory failure. 2. Colocutaneous fistula and multiple ventral hernias. 3. Morbid obesity. 4. Obstructive sleep apnea. 5. Hypertension. 6. Hyperlipidemia. My plan is to check her blood gases stat as well as blood sugar. She has also hypokalemia, which we will change her IV fluid to replenish her potassium. MICHELLE RCESPO MD DR: Masood JOB#: [id number] / [id number]
[2019-10-14 09:30] LABS: FIO2 ABG 28% 2L N.C.
[2019-10-14] MEDS: POTASSIUM CHLORIDE 40 MEQ in IV DEXTROSE 5% 1,000 ML IV SCH (09:59)
[2019-10-14 10:22] VITALS: BP 144/63
[2019-10-14] MEDS: VANCOMYCIN PER PHARMACY MC PRN (10:45)
--- NOTE | 2019-10-14 12:30 | PDOC ---
SURGICAL PROGRESS NOTE Subjective feels hot, sweaty BS was in the 40's earlier Vital Signs Vital Signs Date Time Temp Pulse Resp B/P (MAP) Pulse Ox O2 Delivery O2 Flow Rate FiO2 10/14/19 12:18 98 Nasal Cannula 2.0 10/14/19 10:22 98.0 97 18 144/63 (90) 98.0 I&O Intake and Output 10/14/19 07:00 Intake Total 1980 ml Output Total 2650 ml Balance -670 ml Intake Oral 1980 ml Output Urine Total 2650 ml # Bowel Movements 4 PATIENT HAS A CARROLL: Yes General: Alert Abdomen: Soft, Other (mildy TTP, LLQ ostomy appliance with soft brown stool) Labs Laboratory Tests Test 10/12/19 21:00 10/12/19 21:40 10/13/19 01:22 10/13/19 04:53 White Blood Count 19.4 x10^3/uL (4.0-11.0) 13.8 x10^3/uL (4.0-11.0) Red Blood Count 3.41 x10^6/uL (3.50-5.40) 2.79 x10^6/uL (3.50-5.40) Hemoglobin 9.5 g/dL (12.0-15.5) 7.8 g/dL (12.0-15.5) Hematocrit 29.2 % (36.0-47.0) 24.2 % (36.0-47.0) Mean Corpuscular Volume 86 fL (79-100) 87 fL (79-100) Mean Corpuscular Hemoglobin 28 pg (25-35) 28 pg (25-35) Mean Corpuscular Hemoglobin Concent 33 g/dL (31-37) 32 g/dL (31-37) Red Cell Distribution Width 15.3 % (11.5-14.5) 15.2 % (11.5-14.5) Platelet Count 623 x10^3/uL (140-400) 481 x10^3/uL (140-400) Neutrophils (%) (Auto) 72 % (31-73) 72 % (31-73) Lymphocytes (%) (Auto) 19 % (24-48) 19 % (24-48) Monocytes (%) (Auto) 7 % (0-9) 8 % (0-9) Eosinophils (%) (Auto) 1 % (0-3) 1 % (0-3) Basophils (%) (Auto) 2 % (0-3) 0 % (0-3) Neutrophils # (Auto) 13.9 x10^3/uL (1.8-7.7) 9.9 x10^3/uL (1.8-7.7) Lymphocytes # (Auto) 3.7 x10^3/uL (1.0-4.8) 2.6 x10^3/uL (1.0-4.8) Monocytes # (Auto) 1.4 x10^3/uL (0.0-1.1) 1.2 x10^3/uL (0.0-1.1) Eosinophils # (Auto) 0.1 x10^3/uL (0.0-0.7) 0.1 x10^3/uL (0.0-0.7) Basophils # (Auto) 0.3 x10^3/uL (0.0-0.2) 0.0 x10^3/uL (0.0-0.2) Segmented Neutrophils % 62 % (35-66) Band Neutrophils % 10 % (0-9) Lymphocytes % 22 % (24-48) Monocytes % 6 % (0-10) Toxic Granulation Mod Platelet Estimate Increased (ADEQUATE) Lactic Acid Level 1.6 mmol/L (0.4-2.0) Sodium Level 138 mmol/L (136-145) Potassium Level 3.1 mmol/L (3.5-5.1) Chloride Level 98 mmol/L (98-107) Carbon Dioxide Level 31 mmol/L (21-32) Anion Gap 9 (6-14) Blood Urea Nitrogen 49 mg/dL (7-20) Creatinine 1.7 mg/dL (0.6-1.0) Estimated GFR (Cockcroft-Gault) 29.3 BUN/Creatinine Ratio 29 (6-20) Glucose Level 55 mg/dL (70-99) Calcium Level 7.9 mg/dL (8.5-10.1) Magnesium Level 1.9 mg/dL (1.8-2.4) Total Bilirubin 0.5 mg/dL (0.2-1.0) Aspartate Amino Transf (AST/SGOT) 18 U/L (15-37) Alanine Aminotransferase (ALT/SGPT) 13 U/L (14-59) Alkaline Phosphatase 149 U/L (46-116) Total Protein 7.1 g/dL (6.4-8.2) Albumin 1.7 g/dL (3.4-5.0) Albumin/Globulin Ratio 0.3 (1.0-1.7) Glucose (Fingerstick) 118 mg/dL (70-99) Test 10/13/19 04:55 10/13/19 05:30 10/13/19 07:20 10/13/19 09:05 Sodium Level 140 mmol/L (136-145) Potassium Level 3.4 mmol/L (3.5-5.1) Chloride Level 102 mmol/L (98-107) Carbon Dioxide Level 30 mmol/L (21-32) Anion Gap 8 (6-14) Blood Urea Nitrogen 44 mg/dL (7-20) Creatinine 1.7 mg/dL (0.6-1.0) Estimated GFR (Cockcroft-Gault) 29.3 BUN/Creatinine Ratio 26 (6-20) Glucose Level 108 mg/dL (70-99) Calcium Level 7.6 mg/dL (8.5-10.1) Total Bilirubin 0.4 mg/dL (0.2-1.0) Aspartate Amino Transf (AST/SGOT) 16 U/L (15-37) Alanine Aminotransferase (ALT/SGPT) 7 U/L (14-59) Alkaline Phosphatase 126 U/L (46-116) Total Protein 5.9 g/dL (6.4-8.2) Albumin 1.3 g/dL (3.4-5.0) Albumin/Globulin Ratio 0.3 (1.0-1.7) Nasal Screen MRSA (PCR) Positive (Negative) Glucose (Fingerstick) 101 mg/dL (70-99) 113 mg/dL (70-99) Test 10/13/19 11:30 10/13/19 16:25 10/13/19 20:39 10/14/19 05:00 Glucose (Fingerstick) 165 mg/dL (70-99) 271 mg/dL (70-99) 209 mg/dL (70-99) White Blood Count 6.9 x10^3/uL (4.0-11.0) Red Blood Count 4.44 x10^6/uL (3.50-5.40) Hemoglobin 12.3 g/dL (12.0-15.5) Hematocrit 38.4 % (36.0-47.0) Mean Corpuscular Volume 87 fL (79-100) Mean Corpuscular Hemoglobin 28 pg (25-35) Mean Corpuscular Hemoglobin Concent 32 g/dL (31-37) Red Cell Distribution Width 15.4 % (11.5-14.5) Platelet Count 358 x10^3/uL (140-400) Sodium Level 145 mmol/L (136-145) Potassium Level 3.0 mmol/L (3.5-5.1) Chloride Level 108 mmol/L (98-107) Carbon Dioxide Level 29 mmol/L (21-32) Anion Gap 8 (6-14) Blood Urea Nitrogen 36 mg/dL (7-20) Creatinine 1.5 mg/dL (0.6-1.0) Estimated GFR (Cockcroft-Gault) 33.9 BUN/Creatinine Ratio 24 (6-20) Glucose Level 48 mg/dL (70-99) Calcium Level 7.5 mg/dL (8.5-10.1) Total Bilirubin 0.3 mg/dL (0.2-1.0) Aspartate Amino Transf (AST/SGOT) 13 U/L (15-37) Alanine Aminotransferase (ALT/SGPT) 9 U/L (14-59) Alkaline Phosphatase 110 U/L (46-116) Total Protein 6.0 g/dL (6.4-8.2) Albumin 1.3 g/dL (3.4-5.0) Albumin/Globulin Ratio 0.3 (1.0-1.7) Test 10/14/19 06:58 10/14/19 08:42 10/14/19 08:45 10/14/19 11:29 Glucose (Fingerstick) 108 mg/dL (70-99) 80 mg/dL (70-99) 154 mg/dL (70-99) O2 Saturation 97 % (92-99) Arterial Blood pH 7.41 (7.35-7.45) Arterial Blood pCO2 at Patient Temp 44 mmHg (35-46) Arterial Blood pO2 at Patient Temp 96 mmHg (65-108) Arterial Blood HCO3 27 mmol/L (21-28) Arterial Blood Base Excess 2 mmol/L (-3-3) FiO2 28% 2l n.c. Laboratory Tests Test 10/13/19 16:25 10/13/19 20:39 10/14/19 05:00 10/14/19 06:58 Glucose (Fingerstick) 271 mg/dL (70-99) 209 mg/dL (70-99) 108 mg/dL (70-99) White Blood Count 6.9 x10^3/uL (4.0-11.0) Red Blood Count 4.44 x10^6/uL (3.50-5.40) Hemoglobin 12.3 g/dL (12.0-15.5) Hematocrit 38.4 % (36.0-47.0) Mean Corpuscular Volume 87 fL (79-100) Mean Corpuscular Hemoglobin 28 pg (25-35) Mean Corpuscular Hemoglobin Concent 32 g/dL (31-37) Red Cell Distribution Width 15.4 % (11.5-14.5) Platelet Count 358 x10^3/uL (140-400) Sodium Level 145 mmol/L (136-145) Potassium Level 3.0 mmol/L (3.5-5.1) Chloride Level 108 mmol/L (98-107) Carbon Dioxide Level 29 mmol/L (21-32) Anion Gap 8 (6-14) Blood Urea Nitrogen 36 mg/dL (7-20) Creatinine 1.5 mg/dL (0.6-1.0) Estimated GFR (Cockcroft-Gault) 33.9 BUN/Creatinine Ratio 24 (6-20) Glucose Level 48 mg/dL (70-99) Calcium Level 7.5 mg/dL (8.5-10.1) Total Bilirubin 0.3 mg/dL (0.2-1.0) Aspartate Amino Transf (AST/SGOT) 13 U/L (15-37) Alanine Aminotransferase (ALT/SGPT) 9 U/L (14-59) Alkaline Phosphatase 110 U/L (46-116) Total Protein 6.0 g/dL (6.4-8.2) Albumin 1.3 g/dL (3.4-5.0) Albumin/Globulin Ratio 0.3 (1.0-1.7) Test 10/14/19 08:42 10/14/19 08:45 10/14/19 11:29 O2 Saturation 97 % (92-99) Arterial Blood pH 7.41 (7.35-7.45) Arterial Blood pCO2 at Patient Temp 44 mmHg (35-46) Arterial Blood pO2 at Patient Temp 96 mmHg (65-108) Arterial Blood HCO3 27 mmol/L (21-28) Arterial Blood Base Excess 2 mmol/L (-3-3) FiO2 28% 2l n.c. Glucose (Fingerstick) 80 mg/dL (70-99) 154 mg/dL (70-99) Assessment/Plan colocutaneous fistula obesity ventral hernias continue supportive care RIGO GUALLPA MD Oct 14, 2019 12:30
[2019-10-14 14:24] VITALS: BP 139/61
[2019-10-14 19:00] VITALS: BP 158/67
[2019-10-14] MEDS: FAMOTIDINE 20 MG TABLET. PO SCH (20:36)
[2019-10-14] MEDS: MIRTAZAPINE 15 MG TABLET PO SCH (20:36)
[2019-10-14] MEDS: DOCUSATE SODIUM 100 MG CAPSULE. PO SCH (20:37)
[2019-10-14 21:56] LABS: VANC TR 22.6 mcg/mL (10.0-20.0)
[2019-10-14 23:00] VITALS: BP 160/70
[2019-10-15] MEDS: POTASSIUM CHLORIDE 40 MEQ in IV DEXTROSE 5% 1,000 ML IV SCH (01:32)
[2019-10-15] MEDS: VANCOMYCIN PER PHARMACY MC PRN (01:56)
--- NOTE | 2019-10-15 01:57 | NUR ---
Pharmacy Vancomycin Dosing Note S:Consulted to monitor and dose vancomycin started 10/12/19. O:CASS HOOPER is a 74 year old F with Cellulitis h/o colocutaneous fistula . Height: 4 feet, 10 inches Weight: 116.216455 kg [place] Body Weight: 40.90 Adjusted Body Weight: 73.34 Dosing Weight: Adjusted Other Antibiotics: MERREM 1G IV Q12HRS LABS: Last BUN: 36 Last Creatinine: 1.5 Creatinine Clearance: 37 mL/min Last WBC: 6.9 Last Procalcitonin: - Tmax (past 24 hours): 98.6 Microbiology: BLOOD CX (10/12): NGTD I/O: Drug Levels: Last Trough level: 22.6 on 10/14/19 at 2130 Last dose given 10/13/19 at 2240 Vancomycin Dosing: Loading Dose: 2000 mg x1 Dosing Weight: Adjusted Target Trough: 10-20 A: Based on: TROUGH AND ADJUSTED BODY WT P: 1. Begin Vancomycin 1000 mg IV q24h 2. Follow up Trough level on 10/17/19 at 0530 3. Pharmacy will continue to monitor, follow and adjust therapy as needed. ROBERT MOELLER RPH, 10/15/19 0157 Signed: 10/15/19 at 156 by ROBERT MOELLER RPH PHA
[2019-10-15 03:00] VITALS: BP 165/71
--- NOTE | 2019-10-15 04:22 | NUR ---
attempted to take photos of wounds, patient refused. Stated that "you took enough pictures, im not doing any more", education provided to patient and . pt still refused. Patient also refused to turn Q2, explained to patient the risk for skin break down and patient still refused stating "i will not get more wounds, Im not turning, it hurts to bad". Bed in low, locked position, call light in reach. Will continue to monitor.
[2019-10-15 05:15] LABS: HEMOGLOBIN 7.9 g/dL (12.0-15.5); RED BLOOD COUNT 2.88 x10^6/uL (3.50-5.40); RED CELL DISTRIBUTION WIDTH 15.4 % (11.5-14.5); WHITE BLOOD COUNT 8.3 x10^3/uL (4.0-11.0)
[2019-10-15 05:37] LABS: ALBUMIN 1.3 g/dL (3.4-5.0); ALBUMIN/GLOBULIN RATIO 0.3 (1.0-1.7); CALCIUM 7.2 mg/dL (8.5-10.1); CREATININE 1.2 mg/dL (0.6-1.0); GFR 43.8; POTASSIUM 4.2 mmol/L (3.5-5.1); TOTAL BILIRUBIN 0.2 mg/dL (0.2-1.0); TOTAL PROTEIN 5.3 g/dL (6.4-8.2)
[2019-10-15] MEDS ORDERED: VANCOMYCIN 1 GM in IV NORMAL SALINE 250ML 250 ML IV SCH (06:00)
[2019-10-15 07:00] VITALS: BP 177/77
[2019-10-15] MEDS: IPRATRPIUM/ALBUTEROL 0.5/2.5MG 3 ML NEBU. NEB SCH ×4 (08:00→19:55)
--- NOTE | 2019-10-15 08:45 | NUR ---
SW consulted for pt is from [facility]. Chart reviewed. DEBRA confirmed with facility, pt is LTC resident at [facility], phone: [phone], fax: [phone]. DEBRA will continue to follow.
[2019-10-15] MEDS: LACTOBACILLUS RHAMNOSUS GG 1 CAPSULE. PO SCH ×2 (08:53→21:14)
[2019-10-15] MEDS: MEROPENEM 1 GM in IV NORMAL SALINE 100ML 100 ML IV SCH ×2 (08:53→21:13)
[2019-10-15] MEDS: busPIRone 5 MG TABLET. PO SCH ×2 (08:53→21:15)
[2019-10-15] MEDS: NYSTATIN TOPICAL POWDER 15GM BOTTLE. TP SCH ×2 (08:53→21:23)
[2019-10-15] MEDS: ACETAMINOPHEN 325 MG TABLET. PO PRN (08:53)
[2019-10-15] MEDS: MULTIVITAMIN with MINERAL TABLET. PO SCH (08:54)
[2019-10-15] MEDS: fentaNYL PF VIAL 100 MCG/2 ML VIAL IVP PRN ×2 (08:54→16:34)
[2019-10-15] MEDS: CETIRIZINE HCL 10 MG TABLET. PO SCH (08:54)
[2019-10-15] MEDS: INSULIN LISPRO 300 UNITS/3 ML VIAL. SQ SCH ×4 (09:12→21:00)
--- NOTE | 2019-10-15 09:12 | NUR ---
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 CHG bathing has been initiated. Recommend Nozin also be initiated for decolonization.
[2019-10-15] MEDS: LORazepam 0.5 MG TABLET PO PRN (09:56)
[2019-10-15] MEDS: MORPHINE ER 15 MG TABLET.ER PO SCH ×2 (09:56→21:14)
--- NOTE | 2019-10-15 10:25 | PDOC ---
PURVI ESPARZA BED MAKER 10/15/19 1025: SURGICAL PROGRESS NOTE Subjective pain continues no emesis Vital Signs Vital Signs Date Time Temp Pulse Resp B/P (MAP) Pulse Ox O2 Delivery O2 Flow Rate FiO2 10/15/19 09:56 Nasal Cannula 2.0 10/15/19 08:26 100 10/15/19 07:00 97.9 90 22 177/77 (110) 97.9 I&O Intake and Output 10/15/19 07:00 Intake Total 2895 ml Output Total 2550 ml Balance 345 ml Intake Oral 1300 ml IV Total 1595 ml Output Urine Total 1950 ml Stool Total 600 ml General: Cooperative, No acute distress Abdomen: Soft, Other (fistula draining ) Labs Laboratory Tests Test 10/13/19 11:30 10/13/19 16:25 10/13/19 20:39 10/14/19 05:00 Glucose (Fingerstick) 165 mg/dL (70-99) 271 mg/dL (70-99) 209 mg/dL (70-99) White Blood Count 6.9 x10^3/uL (4.0-11.0) Red Blood Count 4.44 x10^6/uL (3.50-5.40) Hemoglobin 12.3 g/dL (12.0-15.5) Hematocrit 38.4 % (36.0-47.0) Mean Corpuscular Volume 87 fL (79-100) Mean Corpuscular Hemoglobin 28 pg (25-35) Mean Corpuscular Hemoglobin Concent 32 g/dL (31-37) Red Cell Distribution Width 15.4 % (11.5-14.5) Platelet Count 358 x10^3/uL (140-400) Sodium Level 145 mmol/L (136-145) Potassium Level 3.0 mmol/L (3.5-5.1) Chloride Level 108 mmol/L (98-107) Carbon Dioxide Level 29 mmol/L (21-32) Anion Gap 8 (6-14) Blood Urea Nitrogen 36 mg/dL (7-20) Creatinine 1.5 mg/dL (0.6-1.0) Estimated GFR (Cockcroft-Gault) 33.9 BUN/Creatinine Ratio 24 (6-20) Glucose Level 48 mg/dL (70-99) Calcium Level 7.5 mg/dL (8.5-10.1) Total Bilirubin 0.3 mg/dL (0.2-1.0) Aspartate Amino Transf (AST/SGOT) 13 U/L (15-37) Alanine Aminotransferase (ALT/SGPT) 9 U/L (14-59) Alkaline Phosphatase 110 U/L (46-116) Total Protein 6.0 g/dL (6.4-8.2) Albumin 1.3 g/dL (3.4-5.0) Albumin/Globulin Ratio 0.3 (1.0-1.7) Test 10/14/19 06:58 10/14/19 08:42 10/14/19 08:45 10/14/19 11:29 Glucose (Fingerstick) 108 mg/dL (70-99) 80 mg/dL (70-99) 154 mg/dL (70-99) O2 Saturation 97 % (92-99) Arterial Blood pH 7.41 (7.35-7.45) Arterial Blood pCO2 at Patient Temp 44 mmHg (35-46) Arterial Blood pO2 at Patient Temp 96 mmHg (65-108) Arterial Blood HCO3 27 mmol/L (21-28) Arterial Blood Base Excess 2 mmol/L (-3-3) FiO2 28% 2l n.c. Test 10/14/19 16:34 10/14/19 19:28 10/14/19 21:25 10/15/19 04:20 Glucose (Fingerstick) 180 mg/dL (70-99) 183 mg/dL (70-99) Vancomycin Level Trough 22.6 mcg/mL (10.0-20.0) Vancomycin Last Dose Date 10/13/19 Vancomycin Last Dose Time 2200 White Blood Count 8.3 x10^3/uL (4.0-11.0) Red Blood Count 2.88 x10^6/uL (3.50-5.40) Hemoglobin 7.9 g/dL (12.0-15.5) Hematocrit 25.0 % (36.0-47.0) Mean Corpuscular Volume 87 fL (79-100) Mean Corpuscular Hemoglobin 28 pg (25-35) Mean Corpuscular Hemoglobin Concent 32 g/dL (31-37) Red Cell Distribution Width 15.4 % (11.5-14.5) Platelet Count 508 x10^3/uL (140-400) Sodium Level 143 mmol/L (136-145) Potassium Level 4.2 mmol/L (3.5-5.1) Chloride Level 109 mmol/L (98-107) Carbon Dioxide Level 25 mmol/L (21-32) Anion Gap 9 (6-14) Blood Urea Nitrogen 32 mg/dL (7-20) Creatinine 1.2 mg/dL (0.6-1.0) Estimated GFR (Cockcroft-Gault) 43.8 BUN/Creatinine Ratio 27 (6-20) Glucose Level 224 mg/dL (70-99) Calcium Level 7.2 mg/dL (8.5-10.1) Total Bilirubin 0.2 mg/dL (0.2-1.0) Aspartate Amino Transf (AST/SGOT) 13 U/L (15-37) Alanine Aminotransferase (ALT/SGPT) 11 U/L (14-59) Alkaline Phosphatase 118 U/L (46-116) Total Protein 5.3 g/dL (6.4-8.2) Albumin 1.3 g/dL (3.4-5.0) Albumin/Globulin Ratio 0.3 (1.0-1.7) Test 10/15/19 07:44 Glucose (Fingerstick) 186 mg/dL (70-99) Laboratory Tests Test 10/14/19 11:29 10/14/19 16:34 10/14/19 19:28 10/14/19 21:25 Glucose (Fingerstick) 154 mg/dL (70-99) 180 mg/dL (70-99) 183 mg/dL (70-99) Vancomycin Level Trough 22.6 mcg/mL (10.0-20.0) Vancomycin Last Dose Date 10/13/19 Vancomycin Last Dose Time 2199 Test 10/15/19 04:20 10/15/19 07:44 White Blood Count 8.3 x10^3/uL (4.0-11.0) Red Blood Count 2.88 x10^6/uL (3.50-5.40) Hemoglobin 7.9 g/dL (12.0-15.5) Hematocrit 25.0 % (36.0-47.0) Mean Corpuscular Volume 87 fL (79-100) Mean Corpuscular Hemoglobin 28 pg (25-35) Mean Corpuscular Hemoglobin Concent 32 g/dL (31-37) Red Cell Distribution Width 15.4 % (11.5-14.5) Platelet Count 508 x10^3/uL (140-400) Sodium Level 143 mmol/L (136-145) Potassium Level 4.2 mmol/L (3.5-5.1) Chloride Level 109 mmol/L (98-107) Carbon Dioxide Level 25 mmol/L (21-32) Anion Gap 9 (6-14) Blood Urea Nitrogen 32 mg/dL (7-20) Creatinine 1.2 mg/dL (0.6-1.0) Estimated GFR (Cockcroft-Gault) 43.8 BUN/Creatinine Ratio 27 (6-20) Glucose Level 224 mg/dL (70-99) Calcium Level 7.2 mg/dL (8.5-10.1) Total Bilirubin 0.2 mg/dL (0.2-1.0) Aspartate Amino Transf (AST/SGOT) 13 U/L (15-37) Alanine Aminotransferase (ALT/SGPT) 11 U/L (14-59) Alkaline Phosphatase 118 U/L (46-116) Total Protein 5.3 g/dL (6.4-8.2) Albumin 1.3 g/dL (3.4-5.0) Albumin/Globulin Ratio 0.3 (1.0-1.7) Glucose (Fingerstick) 186 mg/dL (70-99) Assessment/Plan bowel rest, wound care will review with RIGO Agudelo MD 10/15/19 1652: SURGICAL PROGRESS NOTE Assessment/Plan d/w Dr Ludwig pt poses significant surgical risk to point I feel she would be better served at a tertiary hospital colocutaneous fistula well controlled with ostomy appliance pt eating PURVI ESPARZA Clark BED MAKER Oct 15, 2019 10:25 RIGO GUALLPA MD Oct 15, 2019 16:52
[2019-10-15 11:00] VITALS: BP 157/69
--- NOTE | 2019-10-15 11:33 | PN ---
DATE: SUBJECTIVE: The patient is resting, slightly propped up in bed, in no apparent respiratory distress. She is definitely more awake, alert today. Continues to have severe pain, rating it about 10/10. Her blood pressure is also high, probably because of pain; however, most of her lab works are much improved. Her BUN and creatinine is down, potassium is up from 3 to 4.2. Her white cell count is also down from 19,000 to 8300. PHYSICAL EXAMINATION: GENERAL: When I examined her, she was pale, but no jaundice, cyanosis or thyromegaly. No jugular venous distension. No lower limb edema. VITAL SIGNS: Her heart rate was 90, blood pressure was 177/77, temperature was 97.9, respiratory rate 22, and oxygen saturation was 98% on 2 liters of oxygen. HEAD, EYES, EARS, NOSE AND THROAT: Showed normocephalic, atraumatic. NECK: Supple. HEART: Showed normal first and second heart sounds. No gallop or murmur. CHEST: Clear to auscultation. No crepitation or rhonchi. ABDOMEN: Distended, soft with a colocutaneous fistula covered with a colostomy bag. There is no tenderness. No guarding or rigidity. No organomegaly. She has multiple anterior abdominal wall hernias. NEUROLOGIC: She is definitely more awake, alert, responding appropriately. All cranial nerves intact. She moves all extremities without difficulty. She is mostly chair bound. Her intake was 2000, output was 2650. LABORATORY DATA: As of this morning, her white cell count was 8300, hemoglobin was 7.9, hematocrit 25, MCV 87 and platelet count 508,000. Her chemistry showed a serum sodium 143, potassium 4.2, chloride 109, bicarbonate 25, anion gap of 9, BUN 32, creatinine 1.2, estimated GFR was 44 mL per minute. Her glucose was 224, calcium was 7.2. Total bilirubin, AST, ALT, alkaline phosphatase were normal. Total protein was 5.3, albumin was 1.3. Her blood cultures are so far negative after 2 days. ASSESSMENT: 1. Altered mental status, likely due to hypoglycemia as her blood sugar was only 40 yesterday, her blood gases were actually within acceptable range, much improved. 2. Colocutaneous fistula with multiple ventral hernias. 3. Morbid obesity. 4. Obstructive sleep apnea. 5. Hypertension. 6. Hyperlipidemia. 7. Type 2 diabetes mellitus. PLAN: My plan is to discontinue her vancomycin. Resume all her medication and await the surgical team's decision. MICHELLE CRESPO MD DR: JARON/binta JOB#: [id number] / [id number]
[2019-10-15 15:00] VITALS: BP 185/75
--- NOTE | 2019-10-15 16:11 | NUR ---
Wound care Wound care consult for multiple wounds. Pt has fistula to left abd, bag was leaking so new wone placed with ostomy ring. Pt has 2 stage II PU to L post thigh and buttock. Cleansed area and covered with Calazime. No other wounds noted on full skin inspection. Pt refused offloading bed as she doesn't like to transfer, educated pt that air mattresses will help heal pressure ulcers.
[2019-10-15] MEDS: hydrALAZINE 25 MG TABLET PO SCH ×2 (16:32→21:14)
[2019-10-15 19:59] VITALS: BP 172/77
[2019-10-15] MEDS: FAMOTIDINE 20 MG TABLET. PO SCH (21:13)
[2019-10-15] MEDS: MIRTAZAPINE 15 MG TABLET PO SCH (21:13)
[2019-10-15] MEDS: DOCUSATE SODIUM 100 MG CAPSULE. PO SCH (21:15)
[2019-10-15 22:02] VITALS: BP_SYST 172; BP_SYST 176; BP_DIAS 73; BP_DIAS 77
[2019-10-16 02:08] VITALS: BP 159/60
[2019-10-16 05:36] LABS: HEMOGLOBIN 8.3 g/dL (12.0-15.5); RED BLOOD COUNT 2.99 x10^6/uL (3.50-5.40); RED CELL DISTRIBUTION WIDTH 15.3 % (11.5-14.5); WHITE BLOOD COUNT 8.3 x10^3/uL (4.0-11.0)
[2019-10-16 06:11] LABS: ALBUMIN 1.3 g/dL (3.4-5.0); ALBUMIN/GLOBULIN RATIO 0.3 (1.0-1.7); CALCIUM 7.8 mg/dL (8.5-10.1); CREATININE 1.3 mg/dL (0.6-1.0); GFR 39.9; POTASSIUM 3.7 mmol/L (3.5-5.1); TOTAL BILIRUBIN 0.2 mg/dL (0.2-1.0)
[2019-10-16 07:06] VITALS: BP 169/76
[2019-10-16] MEDS: IPRATRPIUM/ALBUTEROL 0.5/2.5MG 3 ML NEBU. NEB SCH ×4 (07:26→20:08)
[2019-10-16] MEDS: INSULIN LISPRO 300 UNITS/3 ML VIAL. SQ SCH ×4 (08:03→21:00)
[2019-10-16] MEDS: MEROPENEM 1 GM in IV NORMAL SALINE 100ML 100 ML IV SCH ×2 (08:43→21:25)
[2019-10-16] MEDS: busPIRone 5 MG TABLET. PO SCH ×2 (08:43→21:27)
[2019-10-16] MEDS: hydrALAZINE 25 MG TABLET PO SCH ×3 (08:45→21:26)
[2019-10-16] MEDS: MORPHINE ER 15 MG TABLET.ER PO SCH ×2 (08:46→21:29)
[2019-10-16] MEDS: CETIRIZINE HCL 10 MG TABLET. PO SCH (08:46)
[2019-10-16] MEDS: MULTIVITAMIN with MINERAL TABLET. PO SCH (08:46)
[2019-10-16] MEDS: LACTOBACILLUS RHAMNOSUS GG 1 CAPSULE. PO SCH ×2 (08:46→21:28)
--- NOTE | 2019-10-16 09:14 | PN ---
DATE: 10/16/2019 SUBJECTIVE: The patient is resting, slightly propped up in bed, in no apparent respiratory distress. She is awake and alert, complaining of pain in her left upper quadrant and her lower back. She apparently is eating, tolerating her diet without any problem. She has not had any more stool in her colostomy bag, although she is passing lots of gas. OBJECTIVE: GENERAL: When I examined her, she was pale but no jaundice, cyanosis or thyromegaly. No jugular venous distention. No limb edema. VITAL SIGNS: Her heart rate was 89, blood pressure was 169/76, temperature was 97.9, respiratory rate was 18 and oxygen saturation was 99% on 1 liter of oxygen. HEENT: Normocephalic, atraumatic. NECK: Supple. HEART: Showed normal first and second heart sounds. No gallop or murmur. CHEST: Clear to auscultation. No crepitation or rhonchi. ABDOMEN: Distended, soft. She has severe tenderness in the left upper quadrant. I am not sure that an incarcerated hernia or large amount of hard stool, has definitely very tender to touch. There is otherwise no guarding or rigidity. She has a colostomy over the colocutaneous fistula. NEUROLOGIC: She is awake and alert, responding appropriately. All cranial nerves are intact. EXTREMITIES: She moves her upper extremities to much greater extent than lower extremities. She is mostly bedbound, chair bound. Her intake was 2895, output was 2550. LABORATORY DATA: Her lab work as of this morning showed a white cell count of 8300, hemoglobin 8.3, hematocrit 26, MCV 87 and platelet count 516,000. Her chemistry showed a serum sodium 143, potassium 3.7, chloride 110, bicarbonate 25, anion gap of 8, BUN 26 and creatinine 1.3. Estimated GFR was 40 mL per minute. Her glucose was 131. Calcium was 7.8. Total bilirubin, AST, ALT and alkaline phosphatase were normal. Total protein 6, albumin was 1.3. ASSESSMENT: 1. Altered mental status, likely due to hypoglycemia as her blood sugar was only 40. Blood sugar and gases were actually within acceptable range and she is clinically much improved. 2. Colocutaneous fistula with multiple ventral hernias. 3. Morbid obesity. 4. Obstructive sleep apnea. 5. Hypertension. 6. Hyperlipidemia. 7. Type 2 diabetes mellitus. 8. Acute on chronic kidney injury, improving. 9. Hypokalemia, improving. PLAN: To continue with IV antibiotic. Continue with pain management. I do not think the patient is ready to be discharged, given severe tenderness and pain in her left upper quadrant. MICHELLE CRESPO MD DR: JARON/binta JOB#: [id number] / [id number]
--- NOTE | 2019-10-16 09:41 | PDOC ---
PURVI ESPARZA ALUMINUM CONTAINER TESTER 10/16/19 0941: SURGICAL PROGRESS NOTE Subjective continued pain low appetite Vital Signs Vital Signs Date Time Temp Pulse Resp B/P (MAP) Pulse Ox O2 Delivery O2 Flow Rate FiO2 10/16/19 08:46 99 Nasal Cannula 1.0 10/16/19 08:45 96 169/76 10/16/19 07:06 97.9 18 97.9 I&O Intake and Output 10/16/19 07:00 Intake Total 1820 ml Output Total 1575 ml Balance 245 ml Intake Oral 1620 ml IV Total 200 ml Output Urine Total 1575 ml # Bowel Movements 2 General: Alert, Cooperative Abdomen: Soft, Other (drainage to fistula in place ) Labs Laboratory Tests Test 10/14/19 11:29 10/14/19 16:34 10/14/19 19:28 10/14/19 21:25 Glucose (Fingerstick) 154 mg/dL (70-99) 180 mg/dL (70-99) 183 mg/dL (70-99) Vancomycin Level Trough 22.6 mcg/mL (10.0-20.0) Vancomycin Last Dose Date 10/13/19 Vancomycin Last Dose Time 2200 Test 10/15/19 04:20 10/15/19 07:44 10/15/19 12:01 10/15/19 16:30 White Blood Count 8.3 x10^3/uL (4.0-11.0) Red Blood Count 2.88 x10^6/uL (3.50-5.40) Hemoglobin 7.9 g/dL (12.0-15.5) Hematocrit 25.0 % (36.0-47.0) Mean Corpuscular Volume 87 fL (79-100) Mean Corpuscular Hemoglobin 28 pg (25-35) Mean Corpuscular Hemoglobin Concent 32 g/dL (31-37) Red Cell Distribution Width 15.4 % (11.5-14.5) Platelet Count 508 x10^3/uL (140-400) Sodium Level 143 mmol/L (136-145) Potassium Level 4.2 mmol/L (3.5-5.1) Chloride Level 109 mmol/L (98-107) Carbon Dioxide Level 25 mmol/L (21-32) Anion Gap 9 (6-14) Blood Urea Nitrogen 32 mg/dL (7-20) Creatinine 1.2 mg/dL (0.6-1.0) Estimated GFR (Cockcroft-Gault) 43.8 BUN/Creatinine Ratio 27 (6-20) Glucose Level 224 mg/dL (70-99) Calcium Level 7.2 mg/dL (8.5-10.1) Total Bilirubin 0.2 mg/dL (0.2-1.0) Aspartate Amino Transf (AST/SGOT) 13 U/L (15-37) Alanine Aminotransferase (ALT/SGPT) 11 U/L (14-59) Alkaline Phosphatase 118 U/L (46-116) Total Protein 5.3 g/dL (6.4-8.2) Albumin 1.3 g/dL (3.4-5.0) Albumin/Globulin Ratio 0.3 (1.0-1.7) Glucose (Fingerstick) 186 mg/dL (70-99) 173 mg/dL (70-99) 204 mg/dL (70-99) Test 10/15/19 20:44 10/16/19 02:13 10/16/19 04:15 10/16/19 07:10 Glucose (Fingerstick) 234 mg/dL (70-99) 253 mg/dL (70-99) 196 mg/dL (70-99) White Blood Count 8.3 x10^3/uL (4.0-11.0) Red Blood Count 2.99 x10^6/uL (3.50-5.40) Hemoglobin 8.3 g/dL (12.0-15.5) Hematocrit 26.0 % (36.0-47.0) Mean Corpuscular Volume 87 fL (79-100) Mean Corpuscular Hemoglobin 28 pg (25-35) Mean Corpuscular Hemoglobin Concent 32 g/dL (31-37) Red Cell Distribution Width 15.3 % (11.5-14.5) Platelet Count 516 x10^3/uL (140-400) Sodium Level 143 mmol/L (136-145) Potassium Level 3.7 mmol/L (3.5-5.1) Chloride Level 110 mmol/L (98-107) Carbon Dioxide Level 25 mmol/L (21-32) Anion Gap 8 (6-14) Blood Urea Nitrogen 26 mg/dL (7-20) Creatinine 1.3 mg/dL (0.6-1.0) Estimated GFR (Cockcroft-Gault) 39.9 BUN/Creatinine Ratio 20 (6-20) Glucose Level 231 mg/dL (70-99) Calcium Level 7.8 mg/dL (8.5-10.1) Total Bilirubin 0.2 mg/dL (0.2-1.0) Aspartate Amino Transf (AST/SGOT) 13 U/L (15-37) Alanine Aminotransferase (ALT/SGPT) 11 U/L (14-59) Alkaline Phosphatase 116 U/L (46-116) Total Protein 6.0 g/dL (6.4-8.2) Albumin 1.3 g/dL (3.4-5.0) Albumin/Globulin Ratio 0.3 (1.0-1.7) Laboratory Tests Test 10/15/19 12:01 10/15/19 16:30 10/15/19 20:44 10/16/19 02:13 Glucose (Fingerstick) 173 mg/dL (70-99) 204 mg/dL (70-99) 234 mg/dL (70-99) 253 mg/dL (70-99) Test 10/16/19 04:15 10/16/19 07:10 White Blood Count 8.3 x10^3/uL (4.0-11.0) Red Blood Count 2.99 x10^6/uL (3.50-5.40) Hemoglobin 8.3 g/dL (12.0-15.5) Hematocrit 26.0 % (36.0-47.0) Mean Corpuscular Volume 87 fL (79-100) Mean Corpuscular Hemoglobin 28 pg (25-35) Mean Corpuscular Hemoglobin Concent 32 g/dL (31-37) Red Cell Distribution Width 15.3 % (11.5-14.5) Platelet Count 516 x10^3/uL (140-400) Sodium Level 143 mmol/L (136-145) Potassium Level 3.7 mmol/L (3.5-5.1) Chloride Level 110 mmol/L (98-107) Carbon Dioxide Level 25 mmol/L (21-32) Anion Gap 8 (6-14) Blood Urea Nitrogen 26 mg/dL (7-20) Creatinine 1.3 mg/dL (0.6-1.0) Estimated GFR (Cockcroft-Gault) 39.9 BUN/Creatinine Ratio 20 (6-20) Glucose Level 231 mg/dL (70-99) Calcium Level 7.8 mg/dL (8.5-10.1) Total Bilirubin 0.2 mg/dL (0.2-1.0) Aspartate Amino Transf (AST/SGOT) 13 U/L (15-37) Alanine Aminotransferase (ALT/SGPT) 11 U/L (14-59) Alkaline Phosphatase 116 U/L (46-116) Total Protein 6.0 g/dL (6.4-8.2) Albumin 1.3 g/dL (3.4-5.0) Albumin/Globulin Ratio 0.3 (1.0-1.7) Glucose (Fingerstick) 196 mg/dL (70-99) Assessment/Plan pt poses significant surgical risk to point I feel she would be better served at a tertiary hospital colocutaneous fistula well controlled with ostomy appliance ERIBERTO ARMSTRONG MD 10/16/19 1248: SURGICAL PROGRESS NOTE Assessment/Plan Pt seen and examined. Agree with Ms. Esparza's note abd soft, ostomy bag in place cont ostomy PURVI ESPARZA APRN Oct 16, 2019 09:41 ERIBERTO ARMSTRONG MD Oct 16, 2019 12:48
[2019-10-16 10:00] VITALS: BP 169/70
--- NOTE | 2019-10-16 11:26 | NUR ---
SS following up with discharge planning. Pt is from [facility], ; fax [phone]. SS phoned and faxed updated clinical to [facility]. SS will continue to follow for discharge planning.
[2019-10-16] MEDS: NYSTATIN TOPICAL POWDER 15GM BOTTLE. TP SCH ×2 (12:29→21:29)
[2019-10-16 14:21] VITALS: BP 165/72
[2019-10-16] MEDS: ACETAMINOPHEN 325 MG TABLET. PO PRN ×2 (16:31→23:08)
[2019-10-16] MEDS: LORazepam 0.5 MG TABLET PO PRN ×2 (16:31→23:08)
[2019-10-16 19:01] VITALS: BP 214/88
[2019-10-16] MEDS: DOCUSATE SODIUM 100 MG CAPSULE. PO SCH (21:27)
[2019-10-16] MEDS: MIRTAZAPINE 15 MG TABLET PO SCH (21:29)
[2019-10-16] MEDS: FAMOTIDINE 20 MG TABLET. PO SCH (21:29)
[2019-10-16 22:17] VITALS: BP 165/72
[2019-10-17 03:17] VITALS: BP 187/76
[2019-10-17 06:19] LABS: HEMATOCRIT 26.6 % (36.0-47.0); HEMOGLOBIN 8.5 g/dL (12.0-15.5); RED BLOOD COUNT 3.07 x10^6/uL (3.50-5.40); RED CELL DISTRIBUTION WIDTH 15.6 % (11.5-14.5); WHITE BLOOD COUNT 7.7 x10^3/uL (4.0-11.0)
[2019-10-17 06:28] LABS: CALCIUM 7.5 mg/dL (8.5-10.1); CREATININE 1.2 mg/dL (0.6-1.0); GFR 43.8
[2019-10-17 07:17] VITALS: BP 172/77
[2019-10-17] MEDS: IPRATRPIUM/ALBUTEROL 0.5/2.5MG 3 ML NEBU. NEB SCH ×3 (07:36→15:32)
[2019-10-17] MEDS: LACTOBACILLUS RHAMNOSUS GG 1 CAPSULE. PO SCH (08:51)
[2019-10-17] MEDS: busPIRone 5 MG TABLET. PO SCH (08:51)
[2019-10-17] MEDS: hydrALAZINE 25 MG TABLET PO SCH ×2 (08:52→14:00)
[2019-10-17] MEDS: MORPHINE ER 15 MG TABLET.ER PO SCH ×2 (08:52→12:52)
[2019-10-17] MEDS: MULTIVITAMIN with MINERAL TABLET. PO SCH (08:53)
[2019-10-17] MEDS: CETIRIZINE HCL 10 MG TABLET. PO SCH (08:53)
[2019-10-17] MEDS: MEROPENEM 1 GM in IV NORMAL SALINE 100ML 100 ML IV SCH (08:58)
[2019-10-17] MEDS: NYSTATIN TOPICAL POWDER 15GM BOTTLE. TP SCH (09:01)
[2019-10-17] MEDS: LORazepam 0.5 MG TABLET PO PRN (09:01)
[2019-10-17] MEDS: INSULIN LISPRO 300 UNITS/3 ML VIAL. SQ SCH ×2 (09:10→13:18)
--- NOTE | 2019-10-17 09:47 | PDOC ---
PURVI DURAN ANIMAL HUMANE AGENT SUPERVISOR 10/17/19 0947: SURGICAL PROGRESS NOTE Subjective pain continues eating dc plans Vital Signs Vital Signs Date Time Temp Pulse Resp B/P (MAP) Pulse Ox O2 Delivery O2 Flow Rate FiO2 10/17/19 08:52 90 172/77 10/17/19 08:52 Nasal Cannula 10/17/19 07:36 98 1.0 10/17/19 07:17 98.4 22 98.4 I&O Intake and Output 10/17/19 06:59 Intake Total 1720 ml Output Total 1300 ml Balance 420 ml Intake Oral 1720 ml Output Urine Total 1300 ml General: Cooperative, No acute distress Abdomen: Soft, Other (ostomy bag with drainage ) Labs Laboratory Tests Test 10/15/19 12:01 10/15/19 16:30 10/15/19 20:44 10/16/19 02:13 Glucose (Fingerstick) 173 mg/dL (70-99) 204 mg/dL (70-99) 234 mg/dL (70-99) 253 mg/dL (70-99) Test 10/16/19 04:15 10/16/19 07:10 10/16/19 09:48 10/16/19 11:22 White Blood Count 8.3 x10^3/uL (4.0-11.0) Red Blood Count 2.99 x10^6/uL (3.50-5.40) Hemoglobin 8.3 g/dL (12.0-15.5) Hematocrit 26.0 % (36.0-47.0) Mean Corpuscular Volume 87 fL (79-100) Mean Corpuscular Hemoglobin 28 pg (25-35) Mean Corpuscular Hemoglobin Concent 32 g/dL (31-37) Red Cell Distribution Width 15.3 % (11.5-14.5) Platelet Count 516 x10^3/uL (140-400) Sodium Level 143 mmol/L (136-145) Potassium Level 3.7 mmol/L (3.5-5.1) Chloride Level 110 mmol/L (98-107) Carbon Dioxide Level 25 mmol/L (21-32) Anion Gap 8 (6-14) Blood Urea Nitrogen 26 mg/dL (7-20) Creatinine 1.3 mg/dL (0.6-1.0) Estimated GFR (Cockcroft-Gault) 39.9 BUN/Creatinine Ratio 20 (6-20) Glucose Level 231 mg/dL (70-99) Calcium Level 7.8 mg/dL (8.5-10.1) Total Bilirubin 0.2 mg/dL (0.2-1.0) Aspartate Amino Transf (AST/SGOT) 13 U/L (15-37) Alanine Aminotransferase (ALT/SGPT) 11 U/L (14-59) Alkaline Phosphatase 116 U/L (46-116) Total Protein 6.0 g/dL (6.4-8.2) Albumin 1.3 g/dL (3.4-5.0) Albumin/Globulin Ratio 0.3 (1.0-1.7) Glucose (Fingerstick) 196 mg/dL (70-99) 185 mg/dL (70-99) 198 mg/dL (70-99) Test 10/16/19 16:28 10/16/19 21:33 10/17/19 06:10 10/17/19 07:20 Glucose (Fingerstick) 229 mg/dL (70-99) 241 mg/dL (70-99) 211 mg/dL (70-99) White Blood Count 7.7 x10^3/uL (4.0-11.0) Red Blood Count 3.07 x10^6/uL (3.50-5.40) Hemoglobin 8.5 g/dL (12.0-15.5) Hematocrit 26.6 % (36.0-47.0) Mean Corpuscular Volume 87 fL (79-100) Mean Corpuscular Hemoglobin 28 pg (25-35) Mean Corpuscular Hemoglobin Concent 32 g/dL (31-37) Red Cell Distribution Width 15.6 % (11.5-14.5) Platelet Count 485 x10^3/uL (140-400) Sodium Level 142 mmol/L (136-145) Potassium Level 4.0 mmol/L (3.5-5.1) Chloride Level 110 mmol/L (98-107) Carbon Dioxide Level 27 mmol/L (21-32) Anion Gap 5 (6-14) Blood Urea Nitrogen 22 mg/dL (7-20) Creatinine 1.2 mg/dL (0.6-1.0) Estimated GFR (Cockcroft-Gault) 43.8 Glucose Level 229 mg/dL (70-99) Calcium Level 7.5 mg/dL (8.5-10.1) Laboratory Tests Test 10/16/19 09:48 10/16/19 11:22 10/16/19 16:28 10/16/19 21:33 Glucose (Fingerstick) 185 mg/dL (70-99) 198 mg/dL (70-99) 229 mg/dL (70-99) 241 mg/dL (70-99) Test 10/17/19 06:10 10/17/19 07:20 White Blood Count 7.7 x10^3/uL (4.0-11.0) Red Blood Count 3.07 x10^6/uL (3.50-5.40) Hemoglobin 8.5 g/dL (12.0-15.5) Hematocrit 26.6 % (36.0-47.0) Mean Corpuscular Volume 87 fL (79-100) Mean Corpuscular Hemoglobin 28 pg (25-35) Mean Corpuscular Hemoglobin Concent 32 g/dL (31-37) Red Cell Distribution Width 15.6 % (11.5-14.5) Platelet Count 485 x10^3/uL (140-400) Sodium Level 142 mmol/L (136-145) Potassium Level 4.0 mmol/L (3.5-5.1) Chloride Level 110 mmol/L (98-107) Carbon Dioxide Level 27 mmol/L (21-32) Anion Gap 5 (6-14) Blood Urea Nitrogen 22 mg/dL (7-20) Creatinine 1.2 mg/dL (0.6-1.0) Estimated GFR (Cockcroft-Gault) 43.8 Glucose Level 229 mg/dL (70-99) Calcium Level 7.5 mg/dL (8.5-10.1) Glucose (Fingerstick) 211 mg/dL (70-99) Assessment/Plan continue wound care for fistula RIGO GUALLPA MD 10/17/19 9842: SURGICAL PROGRESS NOTE Assessment/Plan as above no new surgical recs I am of service for ten days Rai Crenshaw Wilder and LUCINDA Duran available if needed PURVI DURAN APRN Oct 17, 2019 09:47 RIGO GUALLPA MD Oct 17, 2019 14:57
--- NOTE | 2019-10-17 10:59 | SNU/HH DC ---
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 CONDITION ON DISCHARGE: Stable CODE STATUS: Code Status: DNR/DNI LONG TERM: SNF STAY <30 DAYS: Yes POST DISCHARGE ORDERS: ACTIVITY ORDERS: Activity as tolerated, Bedrest today WEIGHT BEARING STATUS: No restrictions DIET AFTER DISCHARGE: Regular WOUND/INCISION CARE: Other, see below CHECKS AFTER DISCHARGE: CHECKS AFTER DISCHARGE: Check blood press - daily, Check blood sugar, ac/hs, Check your Temp as needed TREATMENT/EQUIPMENT ORDERS: ADAPTIVE EQUIPMENT NEEDED: None RESPIRATORY EQUIPMENT NEEDED: Oxygen Physical Therapy For: Evalulation/Treatment Occupational Therapy For: Evaluation/Treatment Speech Language Pathology For: Evaluation/Treatment DISCHARGE MEDICATIONS: Home Meds Reported Medications Saliva Substitute Comb. No.12 (Oral Relief Dry Mouth) 30 Ml Novelty.pump, 30 ML MM PRN Q4HRS PRN for DRY MOUTH, SPRAY 10/13/19 Ondansetron (ONDANSETRON ODT) 4 Mg Tab.rapdis, 1 TAB PO PRN Q6-8HRS for N/V, #16 TAB 10/13/19 Multivitamin (MULTI VITAMIN DAILY) 1 Each Tablet, 1 TAB PO DAILY for supplement for 30 Days, #30 TAB 0 Refills 10/13/19 Morphine Sulfate (MORPHINE SULFATE ER) 30 Mg Tablet.er, 1 TAB PO BID for pain, #60 TAB 10/13/19 Mirtazapine (MIRTAZAPINE) 15 Mg Tablet, 1 TAB PO QHS for depression, #30 TAB 3 Refills 10/13/19 Magnesium Hydroxide (MILK OF MAGNESIA) 400 Mg/5 Ml Oral.susp, 10 ML PO PRN BID PRN for CONSTIPATION, MISC 10/13/19 Meropenem (MEROPENEM) 1 Gm Vial, 1 GM IV Q8HRS for uti for 10 Days, #30 EACH 10/13/19 Loratadine (LORATADINE) 10 Mg Tab.rapdis, 1 TAB PO DAILY for allergy symptoms for 30 Days, #30 TAB 0 Refills 10/13/19 Loperamide Hcl (LOPERAMIDE) 2 Mg Tablet, 2 MG PO PRN Q4-6HRS PRN for DIARRHEA, TAB 10/13/19 Polyvinyl Alcohol (LIQUITEARS) 15 Ml Drops, 15 ML OP BID PRN for DRY EYE, DROP 10/13/19 Insulin Glargine,Hum.rec.anlog (LANTUS SOLOSTAR) 100 Unit/1 Ml Insuln.pen, 50 UNIT SQ DAILYWBKFT for DM, #15 ML 3 Refills 10/13/19 Insulin Glargine,Hum.rec.anlog (LANTUS SOLOSTAR) 100 Unit/1 Ml Insuln.pen, 40 UNIT SQ QHS for DM, #15 ML 3 Refills 10/13/19 Hypromellose (ISOPTO TEARS) 15 Ml Drops, 15 ML OP PRN Q1HR PRN for DRY EYE, DROP 10/13/19 Ipratropium/Albuterol Sulfate (DUONEB 0.5-3(2.5) MG/3 ML) 3 Ml Ampul.neb, 3 ML NEB QID for wheezing, EACH 10/13/19 Insulin Lispro (HUMALOG) 100 Unit/1 Ml Vial, 20 UNIT SQ TID for DM, VIAL 10/13/19 Glucagon,Human Recombinant (GLUCAGON EMERGENCY KIT) 1 Mg Kit, 1 MG IM PRN for low blood sugar, #2 KIT 5 Refills 10/13/19 Guaifenesin (DELORES-TUSSIN) 100 Mg/5 Ml Liquid, 10 MG PO PRN Q6HRS PRN for COUGH, LIQUID 10/13/19 Mag Hydrox/Aluminum Hyd/Simeth (Delores-Lanta Liquid) 355 Ml Oral.susp, 30 ML PO PRN Q6HRS PRN for INDIGESTION, MISC 10/13/19 Furosemide (FUROSEMIDE) 40 Mg Tablet, 40 MG PO BID for CHF, TAB 10/13/19 Famotidine (FAMOTIDINE) 20 Mg Tablet, 20 MG PO HS for GERD, TAB 10/13/19 Docusate Sodium (DOCUSATE SODIUM) 100 Mg Capsule, 2 CAP PO HS for constipation for 7 Days, #14 CAP 0 Refills 10/13/19 Benzocaine/Menthol (CEPACOL SORE THROAT LOZENGE) 1 Each Lozenge, 2 TAB PO PRN Q2HR PRN for SORE THROAT for 3 Days, TAB 0 Refills 10/13/19 Buspirone Hcl (BUSPIRONE HCL) 15 Mg Tablet, 0.5 TAB PO BID for depression, #60 TAB 10/13/19 Calcium Carbonate (CALCIUM CARBONATE) 500 Mg Tablet, 500 MG PO PRN Q3HRS PRN for HEARTBURN / GAS, TAB 10/13/19 Lactobacillus Acidophilus (Acidophilus Lactobacilli) 1 Each Capsule, 2 CAP PO DAILY for bowel health for 30 Days, #60 CAP 0 Refills 10/13/19 Acetaminophen (ACETAMINOPHEN) 325 Mg Tablet, 1 TAB PO PRN Q6HRS PRN for PAIN for 24 Days, #100 TAB 0 Refills 10/13/19 Nystatin (NYSTATIN) 1 Each Powder.ea., 1 EACH MC BID 12/20/16 Bisacodyl (BISACODYL) 10 Mg Supp.rect, 10 MG RC PRN DAILY PRN for CONSTIPATION, SUPP.RECT 0 Refills 12/20/16 Acetaminophen (ACETAMINOPHEN SUPP) 650 Mg Supp.rect, 650 MG RC PRN Q6HRS PRN for FEVER, SUPP.RECT 12/20/16 Discontinued Reported Medications Oxycodone HCl (Roxicodone) 5 Mg Tablet, 5 MG PO PRN Q4HRS PRN for PAIN 12/20/16 Levothyroxine Sodium (LEVOTHYROXINE SODIUM) 75 Mcg Tablet, 1 TAB PO DAILY, #90 TAB 1 Refill 04/20/15 MICHELLE CRESPO MD Oct 17, 2019 10:59
[2019-10-17 11:00] VITALS: BP 183/69
--- NOTE | 2019-10-17 11:44 | NUR ---
SS following up with discharge planning. Discharge orders received for return to [facility], ; fax [phone]. SS phoned and faxed discharge orders to [facility]. Pt will discharge today and return to [facility] at 1530. [facility] to provide transportation. Pt, pt's RN, and pt's family notified.
[2019-10-17 15:00] VITALS: BP 168/72
== END 2019-10-17 16:15 | disposition home or self-care (01) | DRG 393 ==
LOC: ER 20:47 → 2 SOUTH 22:25
PROVIDERS: ADMIT Internal Medicine; ATTEND Internal Medicine
DX: K63.2 Fistula of intestine (principal); N17.0 Acute kidney failure with tubular necrosis; J96.10 Chronic respiratory failure, unspecified whether with hypoxia or hypercapnia; Z68.43 Body mass index [BMI] 50.0-59.9, adult; N18.9 Chronic kidney disease, unspecified; G47.33 Obstructive sleep apnea (adult) (pediatric); F32.9 Major depressive disorder, single episode, unspecified; F41.9 Anxiety disorder, unspecified; E78.5 Hyperlipidemia, unspecified; J44.9 Chronic obstructive pulmonary disease, unspecified; Z66 Do not resuscitate; E66.01 Morbid (severe) obesity due to excess calories; E87.6 Hypokalemia; K43.9 Ventral hernia without obstruction or gangrene; E11.649 Type 2 diabetes mellitus with hypoglycemia without coma; I12.9 Hypertensive chronic kidney disease with stage 1 through stage 4 chronic kidney disease, or unspecified chronic kidney disease; E11.22 Type 2 diabetes mellitus with diabetic chronic kidney disease; Z88.6 Allergy status to analgesic agent; Z90.710 Acquired absence of both cervix and uterus; Z88.0 Allergy status to penicillin; Z88.2 Allergy status to sulfonamides; Z88.8 Allergy status to other drugs, medicaments and biological substances; Z99.3 Dependence on wheelchair; Z74.01 Bed confinement status
CPT/HCPCS: 36415; 36600; 74176; 80048; 80053; 80202; 82805; 82962; 83605; 83735; 85007; 85025; 85027; 87040; 87641; 94640; 94760; 96365; 96366; 96368; 96375; J1630; J1815; J2060; J2185; J2543; J3010; J3370; J3480; J7030; J7040; J7042; J7050; J7620; 99285-25; G0378

== ENCOUNTER 2019-11-01 19:36 | Inpatient (IN) | payer OTHER ==
[~2019-11-01] VITALS: Ht 147.3 cm; Wt 129.3 kg
[~2019-11-01 19:36] MED LIST changes: +ACET325T21 PO; +ASCO500C9 PO; +BENZ1LOZ48 PO; +BUSP15TA PO; +CALC500T31 PO; +CETI10TA16 PO; +DEXT7.5S PO; +DOCU100C28 PO; +FAMO20TA5 PO; +FERR325T14 PO; +FURO40TA4 PO; +GLUC1KIT IM; +GUAI-66 PO; +HYDR-2869 PO; +HYPR15DR5 OP; +INSU100I13 SQ; +INSU100V6 SQ; +IPRA3AMP29 NEB; +LACT1CAP48 PO; +LORA0.5T96 PO; +LORA10TA55 PO; +MAG-111 PO; +MAGN400O7 PO; +MERO1VIA15 IV; +METO2.5T PO; +MIRT15TA3 PO; +MORP-16 PO; +MULT-245 PO; +ONDA4TAB12 PO; +OXYC5CAP PO; +POLY15DR28 OP; +POLY17PO29 PO; +POTA20TA4 PO; -POTA20TA82 PO; +[UNRECOGNIZED DRUG - CODE] MM
[2019-11-02] MEDS: IV NORMAL SALINE 1000ML BAG 1,000 ML IV SCH (16:21)
[2019-11-02] MEDS ORDERED: ACETAMINOPHEN 650 MG SUPP.RECT. PR PRN (16:30)
[2019-11-02] MEDS ORDERED: NALOXONE 0.4 MG/ML VIAL. IV PRN (16:30)
[2019-11-02] MEDS: MORPHINE SULFATE/PF 30 ML IV PRN (17:06)
[2019-11-03 07:00] VITALS: BP 163/58
[2019-11-03] MEDS: MORPHINE SULFATE/PF 30 ML IV PRN ×2 (07:39→18:09)
--- NOTE | 2019-11-03 11:07 | NUR ---
Patient c/o pain, bolus 2mg of morphine from PROJECT PRODUCT MANAGER given. Will continue to monitor.
[2019-11-03 11:35] VITALS: BP 153/49
--- NOTE | 2019-11-03 11:52 | PDOC ---
Provider Note Provider Note HISTORY OF PRESENT ILLNESS: The patient is a 74-year-old female patient, a resident at [facility] in [place] sent to the Emergency Room as she has been extremely confused and she has marked swelling and tenderness in her left upper quadrant with overlying erythema of the skin, but has definitely worsened since the last time she was discharged from here. She was seen here with colocutaneous fistula. She had a colostomy bag and a decision at that time by Dr. Lombardi that she is not a candidate for any surgical intervention. At that time, she has also UTI with 3 strains of bacteria including vancomycin-resistant Enterococcus. She was treated with meropenem as well as Zyvox and her lab work , showed that she has marked leukocytosis with a white cell count of 20,000 and therefore, a decision was made to transfer her to [facility] Emergency Room where she was evaluated. She was found to have marked leukocytosis with a white cell count 22,600. Her chemistry showed that she has also acute kidney injury and urinalysis showed she has too numerous to count wbc's. CT scan of the abdomen showed the patient has left lateral lower quadrant hernia containing transverse colon is better visualized and suspected on initially images, there was finding of incarceration which includes necrosis of the colon within the hernia sac with resultant multifocal subcutaneous gas tracking throughout the left abdominal wall soft tissue and extensive surrounding inflammatory changes. There appears to be cutaneous ulceration within the patient's pannus inferiorly that overlies additional hernia that contains the distal descending colon. Subcutaneous ulceration was seen. Today images with surrounding inflammatory changes and confluent increased density fluid. Several additional hernias are again noted, some of which contained colon, small bowel and fat. The patient was admitted to the ICU, was started on IV antibiotic. I did start her on IV meropenem as well as vancomycin. We did consult the surgical team as well as the Infectious Disease team. PAST MEDICAL HISTORY: Significant for hypertension, hyperlipidemia, morbid obesity, obstructive sleep apnea, anxiety, depression, type 2 diabetes mellitus. She did also have left humeral fracture. She underwent left lower quadrant abdominal wall abscess drainage secondary to abdominal hernia incarcerated and perforated colon. At that time, she underwent excisional debridement of skin and subcutaneous fat biopsy of the colon mass and closure colotomy with side drainage of the abdominal wall. ALLERGIES: SHE IS ALLERGIC TO PENICILLIN, SULFA DRUGS, ASPIRIN, CEPHALEXIN, DIAZEPAM, DIPHENHYDRAMINE, AND ERYTHROMYCIN BASE. FAMILY HISTORY: Noncontributory. SOCIAL HISTORY: She used to live at home with her . She has been a resident at [facility] in [place] for almost a year. She never smoked. 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 She does not get around very well. She is mostly bed bound, wheelchair bound. When I saw her yesterday, she was extremely confused, wanting to get out of the bed and walk, wants to lose weight, although she has not been able to walk for at least 1-2 years. MEDICATIONS: She was on following medications: She was on cetirizine 10 mg once a day, ipratropium bromide and albuterol sulfate 3 mL by nebulizer 4 times a day, ferrous sulfate 325 mg twice a day, hydralazine 50 mg 3 times a day, morphine sulfate 30 mg twice a day, oxycodone 5 mg every 4 hours, acetaminophen 650 mg suppository rectally daily every 6 hours, mirtazapine 15 mg at bedtime, lorazepam 0.5 mg daily, buspirone 15 half a tablet 7.5 mg twice a day, calcium carbonate 500 mg every 3 hours, potassium chloride 20 mEq daily, metolazone 2.5 mg daily, dextromethorphan for Robitussin 7.5 mg every 6 hours, benzocaine menthol for Cepacol sore throat lozenges 2 tablets every 2 hours, polyvinyl alcohol 15 drops 1 drop to both eyes twice a day, Mylanta 30 mL every 6 hours, lactobacillus acidophilus 1 capsule twice a day, loperamide 2 mg every 4-6 hours, bisacodyl 10 mg rectally daily, Colace 200 mg at bedtime. She was also on milk of magnesia 30 mL daily p.r.n. for constipation, polyethylene glycol 17 grams twice a day, ondansetron 4 mg every 4-6 hours, famotidine 20 mg at bedtime, Lantus insulin 25 units at bedtime, Humalog insulin 10 units before meals and glucagon 1 mg intramuscular as needed, nystatin powder applied topically twice a day, saliva substitute 30 mL every 4 hours as needed, ascorbic acid 500 mg once a day, multivitamin 1 tablet once a day. PHYSICAL EXAMINATION: GENERAL:sleepy edema. VITAL SIGNS: Her heart rate was 110, blood pressure 148/62, temperature was 98.5, respiratory rate 24 and oxygen saturation was 99% on 3 liters of oxygen. HEAD, EYES, EARS, NOSE AND THROAT: Showed normocephalic, atraumatic. NECK: Supple. HEART: Showed normal first and second heart sounds. No gallop or murmur. CHEST: Clear to auscultation physician or rhonchi. ABDOMEN: Markedly distended with markedly erythematous, swollen left upper quadrant tender areas involving the left flank area. She has a colostomy bag in the left lower quadrant. NEUROLOGIC: She was awake, alert, but very confused. All her cranial nerves intact. She moves upper extremities to much good extent than lower extremities, as she was mostly bed bound. ASSESSMENT AND PLAN: In summary, this is a 74-year-old female patient who was admitted with incarcerated and perforated hernia. She was also diagnosed with sepsis, acute renal insufficiency and urinary tract infection. She was admitted to inpatient Hospice for comfort care, morphine and ativan. NICOLE BALLARD MD Nov 03, 2019 11:52
[2019-11-03] MEDS: IV NORMAL SALINE 1000ML BAG 1,000 ML IV SCH (18:06)
[2019-11-03 19:00] VITALS: BP 129/49
[2019-11-04] MEDS: MORPHINE SULFATE 2 MG/ML VIAL. IV PRN ×2 (03:28→23:46)
[2019-11-04 07:59] VITALS: BP 127/44
[2019-11-04] MEDS: MORPHINE SULFATE/PF 30 ML IV PRN ×2 (09:03→23:01)
--- NOTE | 2019-11-04 10:38 | PDOC ---
PROGRESS NOTES Subjective Subjective no new problems Objective Objective Vital Signs Date Time Temp Pulse Resp B/P (MAP) Pulse Ox O2 Delivery O2 Flow Rate FiO2 11/04/19 09:54 100 Nasal Cannula 3.0 11/04/19 07:59 98.9 85 16 127/44 (71) 98.9 Intake and Output 11/04/19 07:00 Intake Total 0 ml Output Total 1150 ml Balance -1150 ml Intake Oral 0 ml Output Urine Total 1150 ml Physical Exam Abdomen: Other (necrosis left abdomen ,osteomy bag left uper abdomen) Heart: Regular rate Extremities: Other (edema etremities) General: Other (sleepy) MUSCULOSKELETAL: Other Assessment Assessment ASSESSMENT AND PLAN: In summary, this is a 74-year-old female patient who was admitted with incarcerated and perforated hernia. She was also diagnosed with sepsis, acute renal insufficiency and urinary tract infection. Not a candidate for surgery She was admitted to inpatient Hospice for comfort care, morphine and ativan. IV lasix. spoke with pts . Comment Review of Relevant I have reviewed the following items leif (where applicable) has been applied. Vitals/I & O Vital Sign - Last 24 Hours 11/03/19 11/03/19 11/03/19 11/03/19 11:35 18:09 18:40 19:00 Temp 98.2 98.2 Pulse 105 84 Resp 18 B/P (MAP) 153/49 (83) 129/49 (75) Pulse Ox 97 97 92 O2 Delivery Nasal Cannula Nasal Cannula Room Air O2 Flow Rate 3.0 3.0 11/03/19 11/04/19 11/04/19 11/04/19 20:00 03:28 04:13 07:59 Temp 98.9 98.9 Pulse 85 Resp 16 B/P (MAP) 127/44 (71) Pulse Ox 100 O2 Delivery Nasal Cannula Nasal Cannula Nasal Cannula Nasal Cannula O2 Flow Rate 3.0 3.0 3.0 3.0 11/04/19 11/04/19 11/04/19 08:30 09:03 09:54 Pulse Ox 100 100 O2 Delivery Nasal Cannula Nasal Cannula Nasal Cannula O2 Flow Rate 3.0 3.0 3.0 Intake and Output 11/03/19 11/03/19 11/04/19 15:00 23:00 07:00 Intake Total 0 ml 0 ml Output Total 750 ml 400 ml Balance -750 ml -400 ml NICOLE BALLARD MD Nov 04, 2019 10:38
[2019-11-04] MEDS: IV NORMAL SALINE 1000ML BAG 1,000 ML IV SCH (17:24)
[2019-11-04 19:00] VITALS: BP 117/57
[2019-11-05] MEDS: MORPHINE SULFATE 2 MG/ML VIAL. IV PRN (03:25)
[2019-11-05 07:00] VITALS: BP 135/45
--- NOTE | 2019-11-05 09:19 | PDOC ---
PROGRESS NOTES Subjective Subjective no new problems, sleepy Objective Objective Vital Signs Date Time Temp Pulse Resp B/P (MAP) Pulse Ox O2 Delivery O2 Flow Rate FiO2 11/05/19 07:00 99.4 82 17 135/45 (75) 98 Room Air 99.4 11/05/19 03:55 3.0 Intake and Output 11/05/19 07:00 Intake Total 200 ml Output Total 700 ml Balance -500 ml Intake Oral 200 ml Output Urine Total 700 ml # Voids 1 Physical Exam Abdomen: Other (necrosis left abdomen ,osteomy bag left uper abdomen) Heart: Regular rate Extremities: Other (edema etremities) General: Other (sleepy, lethargic) MUSCULOSKELETAL: Other Assessment Assessment ASSESSMENT AND PLAN: In summary, this is a 74-year-old female patient who was admitted with incarcerated and perforated hernia. She was also diagnosed with sepsis, acute renal insufficiency and urinary tract infection. Not a candidate for surgery She was admitted to inpatient Hospice for comfort care, morphine and ativan. IV lasix.bid. no labs. comfort care only.poor prognosis. spoke with pts . Comment Review of Relevant I have reviewed the following items leif (where applicable) has been applied. Vitals/I & O Vital Sign - Last 24 Hours 11/04/19 11/04/19 11/04/19 11/04/19 09:54 19:00 20:22 23:01 Temp 99.6 99.6 Pulse 91 Resp 16 B/P (MAP) 117/57 (77) Pulse Ox 100 100 O2 Delivery Nasal Cannula Room Air Nasal Cannula Nasal Cannula O2 Flow Rate 3.0 3.0 3.0 11/04/19 11/04/19 11/05/19 11/05/19 23:35 23:46 00:16 03:25 O2 Delivery Nasal Cannula Nasal Cannula Nasal Cannula Nasal Cannula O2 Flow Rate 2.0 3.0 3.0 3.0 11/05/19 11/05/19 03:55 07:00 Temp 99.4 99.4 Pulse 82 Resp 17 B/P (MAP) 135/45 (75) Pulse Ox 98 O2 Delivery Nasal Cannula Room Air O2 Flow Rate 3.0 Intake and Output 11/04/19 11/04/19 11/05/19 15:00 23:00 07:00 Intake Total 0 ml 200 ml Output Total 700 ml Balance 0 ml -500 ml KODURI,VINAYA K MD Nov 05, 2019 09:19
--- NOTE | 2019-11-05 10:15 | NUR ---
PATIENTS' AT THE BEDSIDE THIS AM, COOPERATIVE, PLEASANT AND SUPPORTIVE, PATIENT SLEEPING AT THIS TIME, NO S/S OF PAIN/DISCOMFORT NOTICED, COMFORT MEASURES GIVEN, EDEMATOUS ALL OVER, RESPIRATIONS EVEN AND NON LABORED AT THIS TIME, WILL MONITOR.
[2019-11-05] MEDS: MORPHINE SULFATE/PF 30 ML IV PRN (14:59)
[2019-11-05 19:00] VITALS: BP 148/60
[2019-11-05] MEDS: IV NORMAL SALINE 1000ML BAG 1,000 ML IV SCH (19:22)
[2019-11-06] MEDS: ATROPINE 1% OPHTH SOLUTION 5ML BOTTLE. SL PRN ×2 (02:36→14:01)
[2019-11-06] MEDS: MORPHINE SULFATE/PF 30 ML IV PRN ×2 (05:46→20:20)
[2019-11-06 07:00] VITALS: BP 147/48
--- NOTE | 2019-11-06 09:42 | PN ---
DATE: 11/06/2019 SUBJECTIVE: The patient is a 74-year-old female patient who was admitted for inpatient hospice care. She has incarcerated and perforated hernia. She was also diagnosed with sepsis, acute renal insufficiency, urinary tract infection. She was seen by the surgical team and she is not a candidate for any surgery. She was admitted for inpatient hospice for comfort care and end of life care. OBJECTIVE: GENERAL: On examining her, the patient was resting slightly propped up, in no apparent respiratory distress. She was pale, not jaundiced, cyanosed or thyromegaly. No jugular venous distention. Bilateral lower limb edema has largely subsided. HEART: Regular rate. NEUROLOGIC: She is sleepy, lethargic. EXTREMITIES: Has markedly swollen right upper extremity compared to the left upper extremity. ASSESSMENT: Incarcerated and perforated hernia, sepsis, acute renal insufficiency, urinary tract infection. PLAN: To continue with comfort care. The patient continues to be on IV morphine, atropine, lorazepam and acetaminophen. MICHELLE CRESPO MD DR: JARON/binta JOB#: [id number] / [id number]
[2019-11-06] MEDS: MORPHINE SULFATE 2 MG/ML VIAL. IV PRN (14:01)
[2019-11-06] MEDS: IV NORMAL SALINE 1000ML BAG 1,000 ML IV SCH (16:21)
[2019-11-06 19:00] VITALS: BP 132/42
[2019-11-07] MEDS: MORPHINE SULFATE 2 MG/ML VIAL. IV PRN (01:05)
[2019-11-07 07:00] VITALS: BP 146/51
[2019-11-07] MEDS: IV NORMAL SALINE 1000ML BAG 1,000 ML IV SCH (11:44)
[2019-11-07] MEDS: MORPHINE SULFATE/PF 30 ML IV PRN ×2 (11:53→22:36)
[2019-11-07] MEDS: ATROPINE 1% OPHTH SOLUTION 5ML BOTTLE. SL PRN (11:55)
--- NOTE | 2019-11-07 17:38 | PN ---
DATE: 11/07/2019 SUBJECTIVE: The patient this is resting, slightly propped up, slightly more tachypneic, has a low-grade fever. She is unresponsive. PHYSICAL EXAMINATION: GENERAL: When I examined her, she was pale, no jaundice, cyanosis or thyromegaly. VITAL SIGNS: Her heart rate was 105, blood pressure 146/51, temperature was 100.5, respiratory rate was 20, and oxygen saturation was 93% on 2 liters of oxygen. The rest of the examination is stable. ASSESSMENT: Incarcerated and perforated hernia, sepsis, acute renal failure, urinary tract infection. PLAN: To continue with comfort care. I instructed the nurse to increase the dose and frequency of morphine and to use acetaminophen, atropine and lorazepam as needed. MICHELLE CRESPO MD DR: JARON/binta JOB#: [id number] / [id number]
[2019-11-07 19:00] VITALS: BP 127/33
--- NOTE | 2019-11-08 06:32 | NUR ---
The AUTOMOBILE LIGHTS ASSEMBLER and myself went to the patient's room around 0615 to check on patient one final time before our shift ended and upon entering the room, it appeared that the patient was . Myself and Tawnya Jules RN confirmed together at 0620 that there was an absence of vital signs. The patient's spouse, Giuseppe was asleep in the room, so I woke him and notified him. He is currently spending alone time with her now. I notified with Jacobo Chua at 0627, Dr. Ludwig at 0630, and Nursing Director Of Promotions, ADRYAN Latif at 0631.
--- NOTE | 2019-11-08 11:21 | NUR ---
[facility] hosp[facility] nurses arrived this AM and cleaned and prepped body for family viewing. Family left the unit at 1100 and patient's body was tagged and bagged and taken to [facility].
== END 2019-11-08 06:20 | disposition expired | DRG 872 ==
LOC: 5 SOUTH 19:36
PROVIDERS: ADMIT Internal Medicine; ATTEND Internal Medicine
DX: A41.9 Sepsis, unspecified organism (principal); N17.9 Acute kidney failure, unspecified; N39.0 Urinary tract infection, site not specified; K40.30 Unilateral inguinal hernia, with obstruction, without gangrene, not specified as recurrent; Z79.899 Other long term (current) drug therapy; Z88.0 Allergy status to penicillin; Z88.2 Allergy status to sulfonamides; Z88.8 Allergy status to other drugs, medicaments and biological substances
CPT/HCPCS: 82962; J2060; J2270; J7030; G0378